=== PATIENT | female | born 1965 | race Caucasian/White ===

== ENCOUNTER 2018-09-18 21:53 | Emergency (ER) | payer BC, OTHER ==
[~2018-09-18] VITALS: Ht 154.9 cm; Wt 88.5 kg
--- NOTE | 2018-09-18 22:41 | ED Lower Extremity ---
General Chief Complaint: Lower Extremity Stated Complaint: RIGHT LEG PAIN Nursing Triage Note: area on right leg that is red, hardend, warm, and sore wants to make sure she doesn't have a blood clot Nursing Sepsis Screen: No Definite Risk History of Present Illness Date Seen by Provider: Sep 18, 2018 Time Seen by Provider: 22:25 This is a 53-year-old female with a history of factor V Leiden and DVT here with an area of induration and mild tenderness over the right medial calf. She has no fever or chills, no chest pain or shortness of breath. She does not have swelling in the leg. She takes Eliquis and his been compliant with his medication. Allergies and Home Medications Patient Home Medication List Home Medication List Reviewed: Yes Review of Systems Constitutional: no symptoms reported EENTM: no symptoms reported Respiratory: no symptoms reported Cardiovascular: no symptoms reported Gastrointestinal: no symptoms reported Genitourinary: no symptoms reported Musculoskeletal: see HPI Skin: no symptoms reported Psychiatric/Neurological: No Symptoms Reported Past Lonrchw-Eqgevt-Qadhne Hx Patient Social History Alcohol Use: Denies Use Recreational Drug Use: No Smoking Status: Former Smoker Type Used: Cigarettes Former Smoker, Quit: Jul 06, 1993 2nd Hand Smoke Exposure: No Recent Foreign Travel: No Contact w/Someone Who Travel: No Recent Infectious Disease Expo: No Recent Hopitalizations: No Physical Abuse: No Sexual Abuse: No Mistreated: No Fear: No Immunizations Up To Date Date of Influenza Vaccine: Apr 05, 2018 Seasonal Allergies Seasonal Allergies: No Past Medical History Surgeries: Yes (hemorrhoidecotomy) Appendectomy, Gallbladder, 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 Respiratory: Yes Asthma, Pulmonary Embolism Cardiac: Yes Deep Vein Thrombosis, Hypertension 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 oz. 88.056621lj; BMI Method:Stated General Appearance: no apparent distress HEENT: PERRL/EOMI Neck: supple Cardiovascular: normal peripheral pulses, regular rate, rhythm, no edema, other (there is an approximately 2-3 cm area of induration subcutaneous over the right medial calf, there is mild overlying hyperemia but no warmth, there is no edema in the leg) Respiratory: lungs clear Gastrointestinal: non tender, soft Neurologic/Psychiatric: no motor/sensory deficits; No abnormal gait Skin: warm/dry Progress/Results/Core Measures Results/Orders Vital Signs/I&O 09/18/18 22:05 Temp 97.5 Pulse 95 Resp 18 B/P (MAP) 136/96 (109) Pulse Ox 94 O2 Delivery Room Air Blood Pressure Mean: 109 Progress Progress Note : Progress Note Patient's presentation is not consistent with a DVT, it is not consistent with abscess or cellulitis, it does appear consistent with a small area of superficial thrombophlebitis. We do not have formal ultrasound available in this facility however I did offer patient CT of the lower extremity with contrast, I also offered transfer to [facility] in order to have a formal ultrasound, I also recommended the patient may go by private vehicle to [facility] for an ultrasound. Patient consented to me performing my own limited bedside ultrasound, we visualized the popliteal artery and vein and common femoral artery and vein using color mode, there was normal compressibility at both sites. This decreases my suspicion even further for DVT although again I was perfectly clear with patient and family that this is not an official study, that for complete certainty she would need additional testing. We did review return precautions at length, patient was to call 911 for the development of any chest pain or shortness of breath, and otherwise to return to the nearest emergency department for any worsening pain or swelling in the leg. She will use warm compresses on the localized palpable tender area on her leg and she will call her doctor on Thursday morning. Departure Impression Primary Impression: Superficial thrombophlebitis Disposition: HOME, SELF-CARE Condition: Stable Departure-Patient Inst. Referrals: NO,LOCAL PHYSICIAN (PCP) Primary Care Physician Patient Instructions: Superficial Phlebitis STEVE ROWLEY DO Sep 18, 2018 22:41
[2018-09-18 22:48] VITALS: BP 138/85
== END 2018-09-18 22:48 | disposition home or self-care (01) ==
LOC: EDUNIT# 21:53 → ER FS 21:59
DX: I80.01 Phlebitis and thrombophlebitis of superficial vessels of right lower extremity (principal); J45.909 Unspecified asthma, uncomplicated; F32.9 Major depressive disorder, single episode, unspecified; Z87.19 Personal history of other diseases of the digestive system; Z86.718 Personal history of other venous thrombosis and embolism; Z79.01 Long term (current) use of anticoagulants; Z87.891 Personal history of nicotine dependence; Z90.710 Acquired absence of both cervix and uterus; Z90.49 Acquired absence of other specified parts of digestive tract; Z90.89 Acquired absence of other organs; Z86.711 Personal history of pulmonary embolism
CPT/HCPCS: 99283

== ENCOUNTER 2018-12-30 22:41 | Emergency (ER) | payer BC ==
[~2018-12-30] VITALS: Ht 157.5 cm; Wt 81.6 kg
--- OUTSIDE RECORDS SUMMARY | 2018-12-30 22:45 | XMS REPORT | Continuity of Care Document ---
Author Organization Unknown Address Unknown Allergies Active Description Code Type Severity Reaction Onset Reported/Identified Relationship to Patient Clinical Status Yes ADHESIVE TAPE 19167 Chemical Low Rash~Other 12/12/2015 12/12/2015 Yes AZITHROMYCIN 7140 DRUG INGREDI N/A Itching 12/12/2015 12/12/2015 Yes HYDROCODONE 4452 DRUG INGREDI Low Rash 12/12/2015 12/12/2015 Yes LATEX 1429 DRUG INGREDI Low Rash 12/12/2015 12/12/2015 Yes MORPHINE 4906 DRUG INGREDI N/A Itching 12/12/2015 12/12/2015 Yes PENICILLINS 25 Drug Class High Anaphylaxis 12/12/2015 12/12/2015 Medications Medication Packaging Start Date Stop Date Route Dosage Sig ALUM T MAG HYDROXIDE-SIMETH 200-200-20 MG/5ML PO SUSP 12/13/2015 Oral 30 4 TIMES DAILY PRN OLANZAPINE 10 MG PO TBDP 12/13/2015 Oral 10 2 TIMES DAILY PRN ACETAMINOPHEN 325 MG PO TABS 12/13/2015 Oral 650 EVERY 6 HOURS PRN MAGNESIUM HYDROXIDE 400 MG/5ML PO SUSP 12/13/2015 Oral 30 DAILY PRN ALBUTEROL SULFATE (2.5 MG/3ML) 0.083% IN NEBU 12/13/2015 Inhalation 2.5 EVERY 6 HOURS PRN CYCLOBENZAPRINE HCL 10 MG PO TABS 12/13/2015 Oral 10 3 TIMES DAILY PRN ALBUTEROL SULFATE HFA 108 (90 BASE) MCG/ACT IN AERS 12/13/2015 Inhalation 2 EVERY 4 HOURS PRN QUETIAPINE FUMARATE 25 MG PO TABS 12/13/2015 Oral 25 4 TIMES DAILY PRN NYSTATIN 515732 UNIT/GM EX CREA 12/13/2015 Topical 2 TIMES DAILY PRN GABAPENTIN 300 MG PO CAPS 12/13/2015 Oral 600 3 TIMES DAILY TRAZODONE HCL 50 MG PO TABS 12/13/2015 Oral 50 BEDTIME WARFARIN SODIUM 5 MG PO TABS 12/13/2015 Oral 5 DAILY FLUOXETINE HCL 20 MG PO CAPS 12/13/2015 Oral 20 BEDTIME TRIAMTERENE-HCTZ 75-50 MG PO TABS 12/13/2015 Oral 1 DAILY POTASSIUM CHLORIDE ER 10 MEQ PO TBCR 12/13/2015 Oral 10 2 TIMES DAILY IPRATROPIUM-ALBUTEROL 0.5-2.5 (3) MG/3ML IN SOLN 12/13/2015 Nebulization 3 BEDTIME FLUTICASONE FUROATE-VILANTEROL 100-25 MCG/INH IN AEPB 12/13/2015 Inhalation 1 DAILY NYSTATIN 611951 UNIT/GM EX CREA 12/13/2015 Topical 2 TIMES DAILY METFORMIN HCL 850 MG PO TABS 12/13/2015 Oral 850 2 TIMES DAILY WITH MEALS BUSPIRONE HCL 10 MG PO TABS 12/13/2015 Oral 20 2 TIMES DAILY FAMOTIDINE 20 MG PO TABS 12/13/2015 Oral 20 2 TIMES DAILY LISINOPRIL 10 MG PO TABS 12/13/2015 Oral 10 DAILY LOVASTATIN 20 MG PO SPLIT TABLET 12/13/2015 Oral 20 DAILY WITH DINNER LURASIDONE HCL 20 MG PO SPLIT TABLET 12/13/2015 Oral 20 DAILY WITH DINNER ATORVASTATIN CALCIUM 10 MG PO TABS 12/13/2015 Oral 10 DAILY WITH DINNER SULFAMETHOXAZOLE-TRIMETHOPRIM 800-160 MG PO TABS 12/13/2015 12/18/2015 Oral 1 EVERY 12 HOURS SCHEDULED DEXTROSE 50 % IV SOLN 12/14/2015 Intravenous 50 PRN GLUCOSE 40 % PO GEL 12/14/2015 Oral 15 PRN GLUCAGON HCL (RDNA) 1 MG IJ SOLR 12/14/2015 Intramuscular 1 PRN INSULIN ASPART 100 UNIT/ML SC SOPN 12/14/2015 Subcutaneous 2 TIMES DAILY BEFORE MEALS Problems There is no data. Procedures There is no data. Results Test Result Range PROTIME-INR - 12/13/15 05:56 INR 1.77 INR PROTHROMBIN TIME 21.4 sec. 11.8-14.8 COMPREHENSIVE METABOLIC PANEL - 12/13/15 05:56 ALBUMIN 3.9 g/dL 3.4-4.8 ALKALINE PHOSPHATASE 71 U/L 29-122 ALT 35 U/L 10-46 AST 24 U/L 16-37 BILIRUBIN,TOTAL 0.4 mg/dL 0.2-1.3 BUN BLOOD 16 mg/dL 6-20 CALCIUM 9.2 mg/dL 8.7-10.5 CHLORIDE 99 mmol/L 99-111 CO2 33 mmol/L 20-36 CREATININE 0.56 mg/dL 0.40-1.10 EGFR > mL/min >59 GLUCOSE 104 mg/dL 74-106 POTASSIUM 3.6 mmol/L 3.6-4.9 PROTEIN TOTAL 6.6 g/dL 6.4-8.3 SODIUM 139 mmol/L 136-145 URINALYSIS, REFLEX CULTURE IF NEEDED - 12/13/15 17:55 APPEARANCE Clear [none] BILIRUBIN UA Negative Negative COLOR Light-Yellow [none] GLUCOSE UA Negative Negative HEMOGLOBIN UA Trace Negative LEUKOCYTE ESTERASE UA Negative Negative MUCOUS Rare FEW NITRATE UA Negative Negative PH UA 6.0 5.0-8.0 PROTEIN UA Negative Negative RBC UA 0-3 /HPF 0-3 SPECIFIC GRAVITY UA 1.012 1.003-1.030 SQUAMOUS EPITHELIAL 1+ 1+ UROBILINOGEN UA 0.2 mg/dL 0.2 WBC UA 0-3 /HPF 0-3 [id number] Negative Negative PROTIME-INR - 12/14/15 06:17 INR 1.34 INR PROTHROMBIN TIME 17.2 sec. 11.8-14.8 HEMOGLOBIN A1C - 12/14/15 06:17 HEMOGLOBIN A1C 5.8 % 4.0-6.0 SUREPATH PAP RFX HPV mRNA E6/E7 - 10/27/18 00:00 CLINICAL INFORMATION: NRG LMP: NRG PREV. PAP: NRG PREV. 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 Visit Date/Time Discharge Status Pt. Type Provider Facility Loc./Unit Complaint [id number] 12/06/2018 15:15:00 12/06/2018 23:59:59 CLS [facility] [id number] 12/06/2018 15:15:00 Document Registration [id number] 10/27/2018 10:45:00 Document Registration [id number] 12/12/2015 22:15:00 12/14/2015 17:51:00 DIS Inpatient [facility] [id number] 12/13/2015 00:41:09 Document Registration
[2018-12-30 23:14] LABS: BACTERIA,URINE MODERATE /HPF; BILIRUBIN,URINE NEGATIVE (NEGATIVE); CLARITY,URINE CLEAR; COLOR,URINE YELLOW; GLUCOSE, URINE (UA) NEGATIVE (NEGATIVE); KETONES,URINE NEGATIVE (NEGATIVE); LEUKOCYTE ESTERASE ,URINE 1+ (NEGATIVE); NITRITE,URINE NEGATIVE (NEGATIVE); PROTEIN,URINE NEGATIVE (NEGATIVE); UROBILINOGEN,URINE 0.2 MG/DL (NORMAL)
[2018-12-30] MEDS ORDERED: fentaNYL INJECTION 100 MCG/2 ML AMP IVP STA (23:46)
[2018-12-30] MEDS ORDERED: NS IV 1000 ML 1,000 ML IV STA (23:46)
[2018-12-30] MEDS ORDERED: ONDANSETRON 4 MG/2 ML (SDV) Z0FRAN IVP STA (23:46)
--- NOTE | 2018-12-30 23:50 | ED Abdominal Pain ---
General Chief Complaint: Abdominal/GI Problems Stated Complaint: ABD AND BACK PAIN Nursing Triage Note: Patient advises she is experiencing lower abdominal pain, mostly in her suprapubic area. She advises she had a hernia repair approximately 8 month ago and she has been experiencing pain since. She advises the pain has become more intense lately. Sepsis Screen: No Definite Risk Source of Information: Patient History of Present Illness Date Seen by Provider: Dec 30, 2018 Time Seen by Provider: 23:29 Initial Comments 53 yo F presenting with periumbilical abdominal pain and diffuse abdominal pain with nausea that has been getting worse since 1999 tonight. She has had similar issues off and on for the last 8 months or so. She is concerned that she might be having issues with her hernia mesh repair. she has had more severe pain tonight. She has nausea with this and feels like she could throw up but has not been able to. She denies having any diarrhea. She has had constipation with no bowel movement for 2-3 days but states that that is not unusual for her. She denies any pain with urination. She has no fever or chills. 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 Allergies and Home Medications Allergies Coded Allergies: hydrocodone (Verified Allergy, Unknown, 12/30/18) latex (Verified Allergy, Unknown, 12/30/18) Uncoded Allergies: PENICILLIN (Allergy, Unknown, 12/30/18) PLASTIC TAPE (Allergy, Unknown, 12/30/18) Patient Home Medication List Home Medication List Reviewed: Yes Review of Systems Review of Systems Constitutional: No chills, No fever; malaise EENTM: No Symptoms Reported Respiratory: No Symptoms Reported Cardiovascular: Denies Chest Pain, Denies Lightheadedness Gastrointestinal: See HPI, Abdominal Pain, Nausea; Denies Rectal Bleeding; Vomiting Genitourinary: Denies Burning, Denies Frequency Musculoskeletal: no symptoms reported Skin: no symptoms reported Psychiatric/Neurological: No Symptoms Reported Endocrine: No Symptoms Reported Hematologic/Lymphatic: No Symptoms Reported Past Uywuxzn-Otnrta-Rblvpx Hx Past Med/Social Hx: Reviewed Nursing Past Med/Soc Hx Patient Social History Alcohol Use: Denies Use Recreational Drug Use: No Smoking Status: Former Smoker Type Used: Cigarettes Former Smoker, Quit: Jul 06, 1993 2nd Hand Smoke Exposure: No Recent Foreign Travel: No Contact w/Someone Who Travel: No Recent Infectious Disease Expo: No Recent Hopitalizations: No Immunizations Up To Date Date of Influenza Vaccine: Apr 05, 2018 Seasonal Allergies Seasonal Allergies: No Past Medical History Surgeries: Yes (hemorrhoidecotomy) Appendectomy, Gallbladder, 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 Respiratory: Yes Asthma, Pulmonary Embolism Cardiac: Yes Deep Vein Thrombosis, Hypertension 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 oz. 81.195693mn; BMI Method:Estimated General Appearance: WD/WN, moderate distress (complains of abdominal pain), obese HEENT: PERRL/EOMI, pharynx normal Neck: non-tender, supple, normal inspection Respiratory: chest non-tender, lungs clear, normal breath sounds, no respiratory distress, no accessory muscle use Cardiovascular: normal peripheral pulses, regular rate, rhythm Gastrointestinal: soft, no pulsatile mass, tenderness (diffuse but worse in epigastric and along midline scar from prior ventral hernia repair. small umbilical hernia palpated and tender to palpation but not reducible when applying pressure to the hernia ) Rectal: deferred Extremities: normal range of motion, non-tender, normal inspection Back: no CVA tenderness Neurologic/Psychiatric: alert, normal mood/affect, oriented x 3 Skin: normal color, warm/dry Progress/Results/Core Measures Results/Orders Lab Results Laboratory Tests Test 12/30/18 22:55 12/31/18 00:16 Range/Units Urine Color YELLOW Urine Clarity CLEAR Urine pH 7.0 5-9 Urine Specific [place] 1.015 L 1.016-1.022 Urine Protein NEGATIVE NEGATIVE Urine Glucose (UA) NEGATIVE NEGATIVE Urine Ketones NEGATIVE NEGATIVE Urine Nitrite NEGATIVE NEGATIVE Urine Bilirubin NEGATIVE NEGATIVE Urine Urobilinogen 0.2 NORMAL MG/DL Urine Leukocyte Esterase 1+ H NEGATIVE Urine RBC (Auto) TRACE H NEGATIVE Urine RBC NONE /HPF Urine WBC 10-25 H /HPF Urine Squamous Epithelial Cells 10-25 H /HPF Urine Crystals NONE /LPF Urine Bacteria MODERATE H /HPF Urine Casts NONE /LPF Urine Mucus NEGATIVE /LPF Urine Culture Indicated YES White Blood Count 10.4 4.3-11.0 10^3/uL Red Blood Count 4.71 4.35-5.85 10^6/uL Hemoglobin 13.5 11.5-16.0 G/DL Hematocrit 43 35-52 % Mean Corpuscular Volume 90 80-99 FL Mean Corpuscular Hemoglobin 29 25-34 PG Mean Corpuscular Hemoglobin Concent 32 32-36 G/DL Red Cell Distribution Width 14.0 10.0-14.5 % Platelet Count 368 130-400 10^3/uL Mean Platelet Volume 9.7 7.4-10.4 FL Neutrophils (%) (Auto) 52 42-75 % Lymphocytes (%) (Auto) 36 12-44 % Monocytes (%) (Auto) 7 0-12 % Eosinophils (%) (Auto) 4 0-10 % Basophils (%) (Auto) 0 0-10 % Neutrophils # (Auto) 5.4 1.8-7.8 X 10^3 Lymphocytes # (Auto) 3.7 1.0-4.0 X 10^3 Monocytes # (Auto) 0.7 0.0-1.0 X 10^3 Eosinophils # (Auto) 0.5 H 0.0-0.3 10^3/uL Basophils # (Auto) 0.0 0.0-0.1 10^3/uL Sodium Level 138 135-145 MMOL/L Potassium Level 3.5 L 3.6-5.0 MMOL/L Chloride Level 97 L 98-107 MMOL/L Carbon Dioxide Level 28 21-32 MMOL/L Anion Gap 13 5-14 MMOL/L Blood Urea Nitrogen 18 7-18 MG/DL Creatinine 0.76 0.60-1.30 MG/DL Estimat Glomerular Filtration Rate > 60 BUN/Creatinine Ratio 24 Glucose Level 136 H 70-105 MG/DL Calcium Level 9.4 8.5-10.1 MG/DL Corrected Calcium 9.2 8.5-10.1 MG/DL Total Bilirubin 0.3 0.1-1.0 MG/DL Aspartate Amino Transf (AST/SGOT) 15 5-34 U/L Alanine Aminotransferase (ALT/SGPT) 16 0-55 U/L Alkaline Phosphatase 90 40-136 U/L Total Protein 7.6 6.4-8.2 GM/DL Albumin 4.3 3.2-4.5 GM/DL Lipase 39 8-78 U/L My Orders Orders - MAGALIE JOSÉ MD Ua Culture If Indicated (12/30/18 22:54) Urine Culture (12/30/18 22:55) Comprehensive Metabolic Panel (12/30/18 23:46) Lipase (12/30/18 23:46) Ed Iv/Invasive Line Start (12/30/18 23:46) Cbc With Automated Diff (12/30/18 23:46) Ct Abdomen/Pelvis W (12/30/18 23:46) Ns Iv 1000 Ml (Sodium Chloride 0.9%) (12/30/18 23:46) Ondansetron Injection (Zofran Injectio (12/30/18 23:46) Fentanyl Injection (Sublimaze Injection (12/30/18 23:46) Iohexol Injection (Omnipaque 350 Mg/Ml 1 (12/31/18 00:00) Received Contrast (Hold Metformin- Contr (12/31/18 00:00) Ns (Ivpb) (Sodium Chloride 0.9% Ivpb Bag (12/31/18 00:00) Fentanyl Injection (Sublimaze Injection (12/31/18 00:40) Metoclopramide Injection (Reglan Injecti (12/31/18 00:40) Fentanyl Injection (Sublimaze Injection (12/31/18 03:30) Ns Iv 1000 Ml (Sodium Chloride 0.9%) (12/31/18 03:30) Metoclopramide Injection (Reglan Injecti (12/31/18 04:01) Medications Given in ED Current Medications Medications Dose Ordered Sig/Ren Route Start Time Stop Time Status Last Admin Dose Admin Fentanyl Citrate 50 mcg ONCE ONCE IVP 12/31/18 03:30 12/31/18 03:31 DC 12/31/18 03:39 50 MCG Iohexol 100 ml ONCE ONCE IV 12/31/18 00:00 12/31/18 00:01 DC 12/31/18 01:18 100 ML Sodium Chloride 100 ml ONCE ONCE IV 12/31/18 00:00 12/31/18 00:02 DC 12/31/18 01:18 100 ML Vital Signs/I&O 6/27/19 23:00 Temp 98.3 Pulse 88 Resp 16 B/P (MAP) 118/86 (97) Pulse Ox 97 O2 Delivery Room Air Blood Pressure Mean: 97 Progress Progress Note #1: Progress Note check labs, urine and CT scan of abdomen/pelvis. Continue with IV fluids for hydration, fentanyl for pain, Zofran for nausea. With the CT scan will be evaluated for possible obstruction or recurrent hernia. Progress Note #2: Progress Note On recheck of the patient she states that the pain was slightly better after treatment with medicine. She was still having nausea and Zofran had not helped a lot. We will try repeating both pain and nausea medicine and see if that does any better. Still waiting on chemistry panel and creatinine before obtaining a CT scan with IV contrast. The CBC did not show any acute significant abnormality. Her urinalysis had a few white blood cells but patient denies any dysuria or frequency Progress Note #3: Progress Note On return from CT patient was continuing to have complaints of pain along the midline. Her nausea was doing a little bit better after getting a dose of Reglan. She still was exquisitely tender with palpation over the umbilical hernia area. Her chemistry panel had shown that her creatinine and liver enzymes were not showing any acute significant abnormality. Awaiting her CT to evaluate for any acute obstruction mass or pathology that might explain her symptoms. Progress Note #4: Progress Note The CT scan report shows no bowel obstruction or focal inflammatory process. She does have a small fat-containing umbilical hernia and ventral hernia. She does not have any stranding around this area. She was still very tender with palpation of the umbilical hernia and states that none of the medication that she been given was taking any significant change in her pain. We will try giving him an additional dose of medicine and check about admission of the patient for surgical evaluation. However [facility] was swollen did not have any beds available. Patient had requested to try and go to [facility] or [facility] to see about surgical evaluation. However [facility] had no surgeon passport application examiner for the weekend so [facility] was contacted. Dr. Hammond is on-call for [facility] and he did accept the patient in transfer. Diagnostic Imaging Diagonstic Imaging: CT Plain Films/CT/US/NM/MRI: abdomen, pelvis Comments Impression 1 no bowel instruction or focal intra-abdominal inflammatory process. 2 post cholecystectomy, appendectomy, hysterectomy. 3 small fat-containing umbilical region her ventral hernia. 4 L5 spondylolysis with spondylolisthesis. This was read by radiologist Ben maguire M.D. Study was read at 1:40 AM and transmitted at 1:48 AM Reviewed: Reviewed [place] Study Departure Impression Primary Impression: Umbilical hernia without obstruction or gangrene Additional Impressions: Recurrent ventral hernia Abdominal pain Qualified Codes: R10.33 - Periumbilical pain Nausea and vomiting in adult Disposition: 02 XFER SHT-TRM HOSP Condition: Stable Transfer Time Spoke to Accepting Phy: 03:44 Transfer Progress Notes D/w Dr. Hammond and he accepted pt for transfer and evaluation for her recurrent abdominal pain with umbilical hernia and recurrent ventral hernia since her pain was not controlled. Will evaluate her when she is at [facility] but anticipate surgery in the am for repair of recurrent ventral hernia. Transfer Facility: [facility] Method of Transfer: EMS Departure-Patient Inst. Referrals: DEVI HERRERA MD (PCP) Primary Care Physician MAGALIE JOSÉ MD Dec 30, 2018 23:50
[2018-12-31] MEDS ORDERED: NS 100 ML (IVPB) BAG IV ONE
[2018-12-31] MEDS ORDERED: IOHEXOL 350 MG/ML 100 ML (OMNIPAQUE 350) VIAL IV ONE
[2018-12-31] MEDS ORDERED: HOLD METFORMIN - RECEIVED CONTRAST 20 ML VIAL IV SCH
[2018-12-31] MEDS ORDERED: fentaNYL INJECTION 100 MCG/2 ML AMP IVP STA (00:40)
[2018-12-31] MEDS ORDERED: METOCLOPRAMIDE INJ 10 MG/2 ML (REGLAN) IVP STA ×2 (00:40→04:01)
[2018-12-31 00:41] LABS: BASOPHILS % (AUTO) 0 % (0-10); EOSINOPHILS % (AUTO) 4 % (0-10); HEMATOCRIT 43 % (35-52); HEMOGLOBIN 13.5 G/DL (11.5-16.0); LYMPHOCYTES % (AUTO) 36 % (12-44); MEAN CORPUSCULAR HEMOGLOBIN 29 PG (25-34); MEAN CORPUSCULAR HGB CONC 32 G/DL (32-36); MEAN CORPUSCULAR VOLUME 90 FL (80-99); MEAN PLATELET VOLUME 9.7 FL (7.4-10.4); MONOCYTES % (AUTO) 7 % (0-12); NEUTROPHILS # (AUTO) 5.4 X 10^3 (1.8-7.8); NEUTROPHILS % (AUTO) 52 % (42-75); PLATELET COUNT 368 10^3/uL (130-400); WHITE BLOOD COUNT 10.4 10^3/uL (4.3-11.0)
[2018-12-31 00:42] LABS: EOSINOPHILS # (AUTO) 0.5 10^3/uL (0.0-0.3); LYMPHOCYTES # (AUTO) 3.7 X 10^3 (1.0-4.0); MONOCYTES # (AUTO) 0.7 X 10^3 (0.0-1.0)
[2018-12-31 00:55] LABS: ALANINE AMINOTRANSFERASE 16 U/L (0-55); ALBUMIN 4.3 GM/DL (3.2-4.5); ALKALINE PHOSPHATASE 90 U/L (40-136); BILIRUBIN,TOTAL 0.3 MG/DL (0.1-1.0); BUN/CREATININE RATIO 24; CALCIUM 9.4 MG/DL (8.5-10.1); CARBON DIOXIDE 28 MMOL/L (21-32); CHLORIDE 97 MMOL/L (98-107); CREATININE SERUM 0.76 MG/DL (0.60-1.30); GFR ESTIMATED > 60; GLUCOSE 136 MG/DL (70-105); POTASSIUM 3.5 MMOL/L (3.6-5.0); SODIUM 138 MMOL/L (135-145); TOTAL PROTEIN 7.6 GM/DL (6.4-8.2)
[2018-12-31 01:10] LABS: LIPASE 39 U/L (8-78)
--- NOTE | 2018-12-31 01:51 | NUR ---
Patient is resting comfortably at this time. Advises nausea has improved and pain has improved slightly.
[2018-12-31] MEDS ORDERED: NS IV 1000 ML 1,000 ML IV SCH (03:30)
[2018-12-31] MEDS ORDERED: fentaNYL INJECTION 100 MCG/2 ML AMP IVP ONE (03:30)
--- NOTE | 2018-12-31 04:25 | NUR ---
Report given to Mallory RN at [facility], pt. will be going to room 101.
--- NOTE | 2018-12-31 04:30 | NUR ---
Spoke with shift captmaria del rosario Foster at [facility] and they have accepted the transfer.
--- NOTE | 2018-12-31 04:34 | NUR ---
Patient advises improvement in nausea and pain.
[2018-12-31 05:24] VITALS: BP 115/72
--- NOTE | 2018-12-31 05:31 | NUR ---
Patient departed the ER in the care of [facility].
--- NOTE | 2018-12-31 05:53 | Diagnostic Imaging Report ---
PROCEDURE: CT abdomen and pelvis with contrast. TECHNIQUE: Multiple contiguous axial images were obtained through the abdomen and pelvis after administration of intravenous contrast. Auto Exposure Controls were utilized during the CT exam to meet ALARA standards for radiation dose reduction. INDICATION: Suprapubic abdominal pain. FINDINGS: Lung bases are clear. There is fatty infiltration of liver. Gallbladder is surgically absent. Pancreas appears normal. Spleen is not enlarged. Kidneys and adrenals appear normal. Small bowel is not dilated. Colon appears normal. There is no evidence for appendicitis. Uterus is surgically absent. Urinary bladder is normal. There is no intraperitoneal free air or free fluid. There is a small umbilical hernia containing fat. IMPRESSION: No acute abnormality is seen in the abdomen or pelvis. I agree with preliminary interpretation. Dictated by: Dictated on workstation # [id number]
== END 2018-12-31 05:32 | disposition short-term general hospital (02) ==
LOC: EDUNIT# 22:41 → ER FS 22:42
DX: K42.9 Umbilical hernia without obstruction or gangrene (principal); K43.2 Incisional hernia without obstruction or gangrene; R11.2 Nausea with vomiting, unspecified; J45.909 Unspecified asthma, uncomplicated; I10 Essential (primary) hypertension; F32.9 Major depressive disorder, single episode, unspecified; Z86.718 Personal history of other venous thrombosis and embolism; Z86.711 Personal history of pulmonary embolism; Z98.890 Other specified postprocedural states; Z91.040 Latex allergy status; Z88.0 Allergy status to penicillin; Z88.5 Allergy status to narcotic agent; Z87.891 Personal history of nicotine dependence; Z90.49 Acquired absence of other specified parts of digestive tract; Z90.710 Acquired absence of both cervix and uterus
CPT/HCPCS: 36415; 74177; 80053; 81000; 83690; 85025; 87088; 96361; 96374; 96375; 96376

== ENCOUNTER 2019-12-05 13:04 | Inpatient (IN) | payer BC, OTHER ==
[~2019-12-05] VITALS: Ht 154.9 cm; Wt 89.6 kg
[2019-12-05] MEDS ORDERED: KETOROLAC 30 MG/ML VIAL IVP ONE (13:30)
[2019-12-05] MEDS ORDERED: NS IV 1000 ML 1,000 ML IV SCH ×2 (13:30→15:15)
[2019-12-05] MEDS ORDERED: ONDANSETRON 4 MG/2 ML (SDV) Z0FRAN IVP ONE ×2 (13:30→16:15)
--- NOTE | 2019-12-05 13:32 | ED Abdominal Pain ---
General Stated Complaint: BOWEL CONSTIPATION; VAGINAL BLEEDING Source of Information: Patient Exam Limitations: No Limitations History of Present Illness Date Seen by Provider: Dec 05, 2019 Time Seen by Provider: 13:22 Initial Comments The patient is a pleasant obese 54-year-old female who presents for evaluation of bilateral flank pain radiating to the abdomen as well as decreased urination and defecation over the last 3 days. She states that she has had a kidney stone the past that this feels similar. She reports a medical history including COPD, [id number] diabetes, frequent UTIs, and kidney stones. She states that currently she has the urge to urinate but is unable to do so. She had a urinary catheter once but this was after surgery and denies that she has ever needed one to urinate normally. She denies fevers or chills, chest pain or shortness of breath, rectal bleeding, dizziness or syncope. She has been having some nausea. She is alert and oriented 4, calm, and appears to be in no distress at this time. Timing/Duration: 2-3 Days Severity/Quality: Moderate Location: Flank (b/l), Generalized Abdomen Associated Symptoms: Back Pain, Nausea/Vomiting (nausea only) Allergies and Home Medications Allergies Coded Allergies: hydrocodone (Verified Allergy, Unknown, 12/30/18) latex (Verified Allergy, Unknown, 12/30/18) morphine (Verified Allergy, Unknown, 12/05/19) Uncoded Allergies: PENICILLIN (Allergy, Unknown, 12/30/18) PLASTIC TAPE (Allergy, Unknown, 12/30/18) Patient Home Medication List Home Medication List Reviewed: Yes Review of Systems Review of Systems Constitutional: no symptoms reported EENTM: No Symptoms Reported Respiratory: No Symptoms Reported Cardiovascular: No Symptoms Reported Gastrointestinal: Abdominal Pain, Constipated, Nausea; Denies Vomiting Genitourinary: Flank Pain, Urgency Musculoskeletal: no symptoms reported Skin: no symptoms reported Psychiatric/Neurological: No Symptoms Reported Endocrine: No Symptoms Reported Hematologic/Lymphatic: No Symptoms Reported All Other Systems Reviewed Negative Unless Noted: Yes Past Dvacaml-Dacnfr-Vghlap Hx Past Med/Social Hx: Reviewed Nursing Past Med/Soc Hx Patient Social History Type Used: Cigarettes Former Smoker, Quit: Jul 06, 1993 2nd Hand Smoke Exposure: No Recent Foreign Travel: No Contact w/Someone Who Travel: No Recent Hopitalizations: No Immunizations Up To Date Date of Influenza Vaccine: Apr 05, 2018 Seasonal Allergies Seasonal Allergies: No Past Medical History Surgeries: Yes (hemorrhoidecotomy) Appendectomy, Gallbladder, 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 Respiratory: Yes Asthma, Pulmonary Embolism Cardiac: Yes Deep Vein Thrombosis, Hypertension Neurological: No [employer] History: 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 Genitourinary: No Gastrointestinal: Yes Hemorrhoids Musculoskeletal: No Endocrine: No HEENT: No Cancer: No Psychosocial: Yes Depression Integumentary: No Blood Disorders: Yes (Factor 5) Physical Exam Vital Signs Vital Signs - First Documented 12/05/19 13:15 Temp 36.6 Pulse 99 Resp 18 B/P (MAP) 106/63 (77) Pulse Ox 93 O2 Delivery Room Air Capillary Refill : Height/Weight/BMI Height: 5'2.00" Weight: 180lbs. oz. 81.199271oh; BMI Method:Estimated General Appearance: WD/WN, no apparent distress, obese HEENT: PERRL/EOMI, pharynx normal Respiratory: lungs clear, normal breath sounds, no respiratory distress, no accessory muscle use Cardiovascular: regular rate, rhythm, no edema, no JVD Gastrointestinal: normal bowel sounds, soft, tenderness (generalized) Extremities: non-tender, normal inspection, no pedal edema Back: no vertebral tenderness, CVA tenderness (R), CVA tenderness (L) Neurologic/Psychiatric: no motor/sensory deficits, alert, normal mood/affect, oriented x 3 Skin: normal color, warm/dry Focused Exam Lactate Level 12/05/19 14:20: Lactic Acid Level 0.94 Lactic Acid Level Laboratory Tests Test 12/05/19 14:20 Lactic Acid Level 0.94 MMOL/L (0.50-2.00) Progress/Results/Core Measures Results/Orders Lab Results Laboratory Tests Test 12/05/19 13:30 12/05/19 14:10 12/05/19 14:20 Range/Units White Blood Count 20.6 H 4.3-11.0 10^3/uL Red Blood Count 4.92 4.35-5.85 10^6/uL Hemoglobin 14.1 11.5-16.0 G/DL Hematocrit 43 35-52 % Mean Corpuscular Volume 88 80-99 FL Mean Corpuscular Hemoglobin 29 25-34 PG Mean Corpuscular Hemoglobin Concent 33 32-36 G/DL Red Cell Distribution Width 14.1 10.0-14.5 % Platelet Count 451 H 130-400 10^3/uL Mean Platelet Volume 8.9 7.4-10.4 FL Neutrophils (%) (Auto) 80 H 42-75 % Lymphocytes (%) (Auto) 13 12-44 % Monocytes (%) (Auto) 7 0-12 % Eosinophils (%) (Auto) 0 0-10 % Basophils (%) (Auto) 0 0-10 % Neutrophils # (Auto) 16.4 H 1.8-7.8 X 10^3 Lymphocytes # (Auto) 2.6 1.0-4.0 X 10^3 Monocytes # (Auto) 1.3 H 0.0-1.0 X 10^3 Eosinophils # (Auto) 0.1 0.0-0.3 10^3/uL Basophils # (Auto) 0.1 0.0-0.1 10^3/uL Neutrophils % (Manual) 81 % Lymphocytes % (Manual) 10 % Monocytes % (Manual) 7 % Eosinophils % (Manual) 0 % Basophils % (Manual) 0 % Band Neutrophils 2 % Sodium Level 134 L 135-145 MMOL/L Potassium Level 4.2 3.6-5.0 MMOL/L Chloride Level 94 L 98-107 MMOL/L Carbon Dioxide Level 21 21-32 MMOL/L Anion Gap 19 H 5-14 MMOL/L Blood Urea Nitrogen 32 H 7-18 MG/DL Creatinine 2.48 H 0.60-1.30 MG/DL Estimat Glomerular Filtration Rate 20 BUN/Creatinine Ratio 13 Glucose Level 105 70-105 MG/DL Calcium Level 9.6 8.5-10.1 MG/DL Corrected Calcium 9.4 8.5-10.1 MG/DL Total Bilirubin 0.5 0.1-1.0 MG/DL Aspartate Amino Transf (AST/SGOT) 14 5-34 U/L Alanine Aminotransferase (ALT/SGPT) 14 0-55 U/L Alkaline Phosphatase 86 40-136 U/L Total Protein 7.8 6.4-8.2 GM/DL Albumin 4.3 3.2-4.5 GM/DL Amylase Level 97 25-125 U/L Lipase 38 8-78 U/L Urine Color YELLOW Urine Clarity CLOUDY Urine pH 5.0 5-9 Urine Specific [place] >=1.030 1.016-1.022 Urine Protein 2+ H NEGATIVE Urine Glucose (UA) NEGATIVE NEGATIVE Urine Ketones 2+ H NEGATIVE Urine Nitrite NEGATIVE NEGATIVE Urine Bilirubin 2+ H NEGATIVE Urine Urobilinogen 0.2 < = 1.0 MG/DL Urine Leukocyte Esterase 3+ H NEGATIVE Urine RBC (Auto) 3+ H NEGATIVE Urine RBC 10-25 H /HPF Urine WBC TNTC H /HPF Urine Squamous Epithelial Cells 0-2 /HPF Urine Crystals NONE /LPF Urine Bacteria MODERATE H /HPF Urine Casts NONE /LPF Urine Mucus NEGATIVE /LPF Urine Culture Indicated YES Lactic Acid Level 0.94 0.50-2.00 MMOL/L My Orders Orders - NESSA OVIEDO DO Comprehensive Metabolic Panel (12/05/19 13:22) Lipase (12/05/19 13:22) Amylase (12/05/19 13:22) Ua Culture If Indicated (12/05/19 13:22) Ed Iv/Invasive Line Start (12/05/19 13:22) Cbc With Automated Diff (12/05/19 13:22) Ketorolac Injection (Toradol Injection) (12/05/19 13:30) Ondansetron Injection (Zofran Injectio (12/05/19 13:30) Ns Iv 1000 Ml (Sodium Chloride 0.9%) (12/05/19 13:30) Manual Differential (12/05/19 13:30) Ct Abdomen/Pelvis Wo (12/05/19 13:22) Catheter(Urinary) Insert & Ass 03,15 (12/05/19 14:32) Lactic Acid Analyzer (12/05/19 14:36) Blood Culture (12/05/19 14:36) Urine Culture (12/05/19 14:10) Blood Culture (12/05/19 14:53) Ceftriaxone For Iv Use (Rocephin For I (12/05/19 15:15) Fentanyl Injection (Sublimaze Injection (12/05/19 15:15) Ns Iv 1000 Ml (Sodium Chloride 0.9%) (12/05/19 15:15) Medications Given in ED Current Medications Medications Dose Ordered Sig/Ren Route Start Time Stop Time Status Last Admin Dose Admin Ceftriaxone Sodium 1000 mg/ Sterile Water 10 ml @ 200 mls/hr ONCE ONCE IV 12/05/19 15:15 12/05/19 15:17 DC 12/05/19 15:41 200 MLS/HR Fentanyl Citrate 50 mcg ONCE ONCE IVP 12/05/19 15:15 12/05/19 15:16 DC 12/05/19 15:42 50 MCG Ketorolac Tromethamine 30 mg ONCE ONCE IVP 12/05/19 13:30 12/05/19 13:31 DC 12/05/19 13:33 30 MG Ondansetron HCl 4 mg ONCE ONCE IVP 12/05/19 13:30 12/05/19 13:31 DC 12/05/19 13:33 4 MG Vital Signs/I&O 12/05/19 13:15 Temp 36.6 Pulse 99 Resp 18 B/P (MAP) 106/63 (77) Pulse Ox 93 O2 Delivery Room Air Progress Progress Note : Progress Note @1545 - patient updated on lab and imaging results. Because of the acute kidney injury the patient will benefit from admission and IV hydration. She agrees with this plan. Dr. Desir page for the admission. Her nurse states that she will call back. @7408 - Dr. Desir accepts the med/surg admission at [facility]. Departure Communication (Admissions) Time/Spoke to Admitting Phy: 15:55 Dr. Desir accepts the admission at [facility] Impression Primary Impression: Acute kidney injury Additional Impression: Urinary tract infection Disposition: ADMITTED INPATIENT Condition: Stable Admissions Decision to Admit Reason: Admit from ER (General) Decision to Admit/Date: Dec 05, 2019 Time/Decision to Admit Time: 15:50 Departure-Patient Inst. Referrals: ADDY SMART APRN (PCP) Primary Care Physician [facility] (Family) Primary Care Physician NESSA OVIEDO DO Dec 05, 2019 13:32
[2019-12-05 13:47] LABS: HEMATOCRIT 43 % (35-52); HEMOGLOBIN 14.1 G/DL (11.5-16.0); MEAN CORPUSCULAR VOLUME 88 FL (80-99); WHITE BLOOD COUNT 20.6 10^3/uL (4.3-11.0)
[2019-12-05 13:48] LABS: BASOPHILS % (AUTO) 0 % (0-10); EOSINOPHILS % (AUTO) 0 % (0-10); LYMPHOCYTES % (AUTO) 13 % (12-44); MEAN CORPUSCULAR HEMOGLOBIN 29 PG (25-34); MEAN CORPUSCULAR HGB CONC 33 G/DL (32-36); MEAN PLATELET VOLUME 8.9 FL (7.4-10.4); MONOCYTES % (AUTO) 7 % (0-12); NEUTROPHILS % (AUTO) 80 % (42-75); PLATELET COUNT 451 10^3/uL (130-400); RED CELL DISTRIBUTION WIDTH 14.1 % (10.0-14.5)
[2019-12-05 13:49] LABS: NEUTROPHILS # (AUTO) 16.4 X 10^3 (1.8-7.8)
[2019-12-05 13:50] LABS: BASOPHILS # (AUTO) 0.1 10^3/uL (0.0-0.1); EOSINOPHILS # (AUTO) 0.1 10^3/uL (0.0-0.3); LYMPHOCYTES # (AUTO) 2.6 X 10^3 (1.0-4.0); MONOCYTES # (AUTO) 1.3 X 10^3 (0.0-1.0)
[2019-12-05] MEDS ORDERED: IOHEXOL 350 MG/ML 100 ML (OMNIPAQUE 350) VIAL IV ONE (14:00)
[2019-12-05] MEDS ORDERED: HOLD METFORMIN - RECEIVED CONTRAST 20 ML VIAL IV SCH (14:00)
[2019-12-05] MEDS ORDERED: NS 100 ML (IVPB) BAG IV ONE (14:00)
[2019-12-05] MEDS ORDERED: CATHETER FLUSH 10 ML SYR IV PRN (14:00)
[2019-12-05 14:02] LABS: BAND NEUTROPHILS 2 %; BASOPHILS % (MANUAL) 0 %; EOSINOPHILS % (MANUAL) 0 %; LYMPHOCYTES % (MANUAL) 10 %; MONOCYTES % (MANUAL) 7 %; NEUTROPHILS % (MANUAL) 81 %
[2019-12-05 14:10] LABS: POTASSIUM 4.2 MMOL/L (3.6-5.0)
[2019-12-05 14:11] LABS: ALBUMIN 4.3 GM/DL (3.2-4.5); BILIRUBIN,TOTAL 0.5 MG/DL (0.1-1.0); CALCIUM 9.6 MG/DL (8.5-10.1); CREATININE SERUM 2.48 MG/DL (0.60-1.30); TOTAL PROTEIN 7.8 GM/DL (6.4-8.2)
[2019-12-05 14:42] LABS: CLARITY,URINE CLOUDY; COLOR,URINE YELLOW
[2019-12-05 14:43] LABS: GLUCOSE, URINE (UA) NEGATIVE (NEGATIVE); KETONES,URINE 2+ (NEGATIVE); NITRITE,URINE NEGATIVE (NEGATIVE); PROTEIN,URINE 2+ (NEGATIVE)
[2019-12-05 14:44] LABS: BACTERIA,URINE MODERATE /HPF; BILIRUBIN,URINE 2+ (NEGATIVE); LEUKOCYTE ESTERASE ,URINE 3+ (NEGATIVE); WBC,URINE TNTC /HPF
[2019-12-05 14:45] LABS: SQUAMOUS EPITHELIAL CELL,UR 0-2 /HPF
--- NOTE | 2019-12-05 14:56 | Diagnostic Imaging Report ---
PROCEDURE: CT abdomen and pelvis without contrast. TECHNIQUE: Multiple contiguous axial images were obtained through the abdomen and pelvis without the use of intravenous contrast. Auto Exposure Controls were utilized during the CT exam to meet ALARA standards for radiation dose reduction. INDICATION: Bilateral flank pain. Dysuria. COMPARISON: 12/31/2018. FINDINGS: Included portions of the lung bases are clear. CT ABDOMEN: Bilateral L5 pars defects are noted. No acute bony abnormalities are seen. Normal appendix cannot be adequately identified, but there is no pericecal inflammation. Small bowel loops are nondistended. No renal or ureteral calculi are seen on either side. There is no hydroureteronephrosis or other evidence of obstruction. Kidneys have an otherwise unremarkable noncontrast CT appearance. The adrenal glands, spleen, pancreas, and liver have an unremarkable noncontrast CT appearance as well. There is no loculated fluid collection, free fluid, nor free air within the abdomen. No abnormal mesenteric or retroperitoneal adenopathy is seen. Osseous structures show no acute abnormalities. There is mild scattered calcified aortic atherosclerosis. Fat-containing umbilical hernia is also noted. CT PELVIS: Hypodense cystic-appearing structure is identified medial to the right iliac wing and anterior to the right psoas muscle just superior to the confluence of the iliac and psoas muscles. It measures 2.9 cm in diameter. This is increased in size compared to 2 cm previously. Ordonez catheter is present. Urinary bladder is decompressed. There is no loculated fluid collection, free fluid, nor free air within the pelvis. No abnormal adenopathy is identified. Osseous structures show no acute abnormalities. IMPRESSION: 1. No acute abnormalities are seen within the abdomen or pelvis. 2. Fat-containing periumbilical hernia. 3. Interval increase in size of probable right ovarian or paraovarian cyst. Further characterization with sonogram may be of benefit to ensure benignity, as some complex cystic features may be inconspicuous on CT. Dictated by: Dictated on workstation # [id number]
[2019-12-05] MEDS ORDERED: fentaNYL INJECTION 100 MCG/2 ML AMP IVP ONE (15:15)
[2019-12-05] MEDS ORDERED: cefTRIAXone FOR IV USE 1,000 MG in WATER (STERILE) FOR INJECTION 10 ML IV ONE (15:15)
--- OUTSIDE RECORDS SUMMARY | 2019-12-05 15:21 | XMS REPORT | Continuity of Care Document ---
Author Organization Unknown Address Unknown Phone Unavailable Allergies Active Description Code Type Severity Reaction Onset Reported/Identified Relationship to Patient Clinical Status Yes ADHESIVE TAPE MOD ERATE MODERATE Yes HYDROCODONE-ACETAMINOPHEN UNKNOWN UNKNOWN Yes LATEX UNKNOWN UNKNOWN Yes MORPHINE SEVERE SEVERE Yes PENICILLIN G POTASSIUM UNKNOWN UNKNOWN Yes ZITHROMAX Z-ROCHELLE S EVERE SEVERE Yes ADHESIVE TAPE 53053 Chemical Low Rash~Other 12/12/2015 12/12/2015 Yes AZITHROMYCIN 7140 DRUG INGREDI N/A Itching 12/12/2015 12/12/2015 Yes HYDROCODONE 4452 DRUG INGREDI Low Rash 12/12/2015 12/12/2015 Yes LATEX 1429 DRUG INGREDI Low Rash 12/12/2015 12/12/2015 Yes MORPHINE 4906 DRUG INGREDI N/A Itching 12/12/2015 12/12/2015 Yes PENICILLINS 25 Drug Class High Anaphylaxis 12/12/2015 12/12/2015 Yes hydrocodone [id number] Drug Aller gy Unknown N/A 12/30/2018 Yes latex [id number] Drug Allergy Unknown N/A 12/30/2018 Yes PENICILLIN PENICILLIN Unknown N/A 12/30/2018 Yes PLASTIC TAPE PLASTIC TAPE Unknown N/A 12/30/2018 Medications Medication Packaging Start Date St op Date Route Dosage Sig ALUM T MAG HYDROXIDE-SIMETH 200-200-20 MG/5ML PO SUSP 12/13/2015 Oral 30 4 TIMES DAILY PRN OLANZAPINE 10 MG PO TBDP 12/13/2015 Oral 10 2 TI MES DAILY PRN ACETAMINOPHEN 325 MG PO TABS 12/13/2015 Oral 650 EVERY 6 HOURS PRN MAGNESIUM HYDROXIDE 400 MG/5ML PO SUSP 12/13/2015 Oral 30 DAILY PRN ALBUTEROL SULFATE (2.5 MG/3ML) 0.083% IN N EBU 12/13/2015 Inhalation 2.5 EVERY 6 HOURS PRN CYCLOBENZAPRINE HCL 10 MG PO TABS 12/13/2015 Oral 10 3 TIMES DAILY PRN ALBUTEROL SULFATE HFA 108 (9 0 BASE) MCG/ACT IN AERS 12/13/2015 Inhalation 2 EVERY 4 HOURS PRN QUETIAPINE FUMARATE 25 MG PO TABS 12/13/2015 Oral 25 4 TIMES DAILY PRN NYSTATIN 627483 UNIT/GM EX CREA 12/13/2015 Topical 2 TIMES DAILY PRN GABAPENTIN 300 MG PO CAPS 12/13/2015 Oral 600 3 TI MES DAILY TRAZODONE HCL 50 MG PO TABS 12/13/2015 Oral 50 BEDTIME WARFARIN SODIUM 5 MG PO TABS 12/13/2015 Oral 5 DAILY FLUOXETINE HCL 20 MG PO CAPS 12/13/2015 Oral 20 BEDTIME TRIAMTERENE-HCTZ 75-50 MG PO TABS 12/13/2015 Oral 1 DAILY POTASSIUM CHLORIDE ER 10 MEQ PO TBCR 12/13/2015 Oral 10 2 TIMES DAILY IPRATROPIUM-ALBUTEROL 0.5-2. 5 (3) MG/3ML IN SOLN 12/13/2015 Nebulization 3 BEDTIME FLUTICASONE FUROATE-VILANTER OL 100-25 MCG/INH IN AEPB 12/13/2015 Inhalation 1 DAILY NYSTATIN [id number] UNIT/GM EX CREA 12/13/2015 Topical 2 TIMES DAILY METFORMIN HCL 850 MG PO TABS 12/13/2015 Oral 850 2 TIMES DAILY WITH MEALS BUSPIRONE HCL 10 MG PO TABS 12/13/2015 Oral 20 2 TIMES DAILY FAMOTIDINE 20 MG PO TABS 12/13/2015 Oral 20 2 TI MES DAILY LISINOPRIL 10 MG PO TABS 12/13/2015 Oral 10 SU Y LOVASTATIN 20 MG PO SPLIT TABLET 12/13/2015 Oral 20 DAILY WITH DINNER LURASIDONE HCL 20 MG PO SPLIT TABLET 12/13/2015 Oral 20 DAILY WITH DINNER ATORVASTATIN CALCIUM 10 MG PO TABS 12/13/2015 Oral 10 DAILY WITH DINNER SULFAMETHOXAZOLE-TRIMETHOPRI M 800-160 MG PO TABS 12/13/2015 12/18/2015 Oral 1 EVERY 12 HOURS SCHEDULED DEXTROSE 50 % IV SOLN 12/14/2015 Intravenous 50 PRN GLUCOSE 40 % PO GEL 12/14/2015 Oral 15 PRN GLUCAGON HCL (RDNA) 1 MG IJ SOLR 12/14/2015 Intramuscular 1 PRN INSULIN ASPART 100 UNIT/ML SC SOPN 12/14/2015 Subcutaneous 2 TIMES DAILY BEFORE MEALS FENTANYL INJ 100 MCG/2CC VIAL MCG 12/31/2018 01/03/2019 PRN Q2H ONDANSETRON VIAL INJ 4 MG/2CC (ZOFRAN 2CC VIAL) MG 12/31/2018 01/07/2019 PRN Q6H LACTATED RINGERS 1000CC IV BAG INJ ml 12/31/2018 01/07/2019 CONTINUOUSEVERY 0 Hour LISINOPRIL TAB 10 MG (ZESTRIL) MG 12/31/2018 01/29/2019 Daily&0900 MONTELUKAST TAB 5 MG (SINGULAIR) MG 12/31/2018 01/06/2019 Daily&0900 FENTANYL INJ 100 MCG/2CC VIAL MCG 12/31/2018 12/31/2018 ONCE&1154 ALBUTEROL INHALER MDI 8 GM (VENTOLIN HFA) Dose(s) 12/31/2018 01/10/2019 PRN QID TRAMADOL TAB 50 MG (ULTRAM) MG 12/31/2018 01/10/2019 PRN Q4H LACTATED RINGERS 1000CC IV BAG INJ ml 02/14/2019 02/21/2019 CONTINUOUSEVERY 0 Hour OXYCODONE 5MG/APAP 325MG TAB(PERCOCET-5) TAB 02/14/2019 02/21/2019 PRN Q4H CLINDAMYCIN 900MG/50CC BAG I NJ 900 MG/50CC (CLEOCIN 900MG/50CC PREMIX) MG 02/14/2019 02/14/2019 ONCE&111 5 FENTANYL INJ 100 MCG/2CC VIAL MCG 02/14/2019 02/14/2019 ONCE&1424 OXYCODONE/APAP 10MG/325MG TAB(PERCOCET-10) TAB 02/14/2019 02/14/2019 PRN ONCE ALBUTEROL SVN 2.5MG/3CC LIQ 2.5 MG (PROVENTIL KASHIF 2.5MG/3CC) MG 02/14/2019 02/24/2019 PRN QID Problems Date Dx Coded Attending Type Code Diagnosis Diagnosed By 09/18/2018 STEVE ROWLEY DO Ot F32. 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 01 PRISON (CURRENT) USE OF ANTICOAGULANT 09/18/2018 HALLEY COHN STEVE T Ot Z86.711 PERSONAL HISTORY OF PULMONARY EMBOLISM 09/18/2018 HALLEY COHN STEVE T Ot Z86.718 PERSONAL HISTORY OF OTHER VENOUS THROMBO 09/18/2018 HALLEY COHN STEVE T Ot Z87. 19 PERSONAL HISTORY OF OTHER DISEASES OF 09/18/2018 HALLEY COHN STEVE T Ot Z87.891 PERSONAL HISTORY OF NICOTINE DEPENDENCE 09/18/2018 HALLEY COHN STEVE T Ot Z90. 49 ACQUIRED ABSENCE OF OTHER SPECIFIED PART 09/18/2018 HALLEY COHN STEVE T Ot Z90.710 ACQUIRED ABSENCE OF BOTH CERVIX AND UTER 09/18/2018 HALLEY COHN STEVE T Ot Z90. 89 ACQUIRED ABSENCE OF OTHER ORGANS 09/20/2018 HALLEY COHN STEVE T Ot F32. 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 01 PRISON (CURRENT) USE OF ANTICOAGULANT 09/20/2018 HALLEY COHN STEVE T Ot Z86.711 PERSONAL HISTORY OF PULMONARY EMBOLISM 09/20/2018 HALLEY COHN STEVE T Ot Z86.718 PERSONAL HISTORY OF OTHER VENOUS THROMBO 09/20/2018 HALLEY COHN STEVE T Ot Z87. 19 PERSONAL HISTORY OF OTHER DISEASES OF 09/20/2018 HALLEY COHN STEVE T Ot Z87.891 PERSONAL HISTORY OF NICOTINE DEPENDENCE 09/20/2018 HALLEY COHN STEVE T Ot Z90. 49 ACQUIRED ABSENCE OF OTHER SPECIFIED PART 09/20/2018 HALLEY COHN STEVE T Ot Z90.710 ACQUIRED ABSENCE OF BOTH CERVIX AND UTER 09/20/2018 HALLEY COHN STEVE T Ot Z90. 89 ACQUIRED ABSENCE OF OTHER ORGANS 12/31/2018 ARNAV MEJIA, MAGALIE Enciso Ot F32.9 MAJOR DEPRESSIVE DISORDER, SINGLE EPISOD 12/31/2018 MAGALIE JOSÉ MD, Ot I10 ESSENTIAL (PRIMARY) HYPERTENSION 12/31/2018 MAGALIE JOSÉ MD, Ot J45.9 09 UNSPECIFIED ASTHMA, UNCOMPLICATED 12/31/2018 MAGALIE JOSÉ MD, Ot K42.9 UMBILICAL HERNIA WITHOUT OBSTRUCTION OR 12/31/2018 MAGALIE JOSÉ MD, Ot K43.2 INCISIONAL HERNIA WITHOUT OBSTRUCTION OR 12/31/2018 MAGALIE JOSÉ MD, Ot R10.3 3 PERIUMBILICAL PAIN 12/31/2018 MAGALIE JOSÉ MD, Ot R11.2 NAUSEA WITH VOMITING, UNSPECIFIED 12/31/2018 MAGALIE JOSÉ MD, Ot Z86.7 11 PERSONAL HISTORY OF PULMONARY EMBOLISM 12/31/2018 MAGALIE JOSÉ MD, Ot Z86.7 18 PERSONAL HISTORY OF OTHER VENOUS THROMBO 12/31/2018 MAGALIE JOSÉ MD, Ot Z87.8 91 PERSONAL HISTORY OF NICOTINE DEPENDENCE 12/31/2018 MAGALIE JOSÉ MD, Ot Z88.0 ALLERGY STATUS TO PENICILLIN 12/31/2018 MAGALIE JOSÉ MD, Ot Z88.5 ALLERGY STATUS TO NARCOTIC AGENT STATUS 12/31/2018 MAGALIE JOSÉ MD, Ot Z90.4 9 ACQUIRED ABSENCE OF OTHER SPECIFIED PART 12/31/2018 MAGALIE JOSÉ MD, Ot Z90.7 10 ACQUIRED ABSENCE OF BOTH CERVIX AND UTER 12/31/2018 MAGALIE JOSÉ MD, Ot Z91.0 40 LATEX ALLERGY STATUS 12/31/2018 MAGALIE JOSÉ MD, Ot Z98.8 90 OTHER SPECIFIED POSTPROCEDURAL STATES 12/31/2018 Prateek Hammond I10 ESSENTIAL (PRIMARY) HYPERTENSION 12/31/2018 Prateek Hammond K43.0 INCISIONAL HERNIA WITH OBSTRUCTION, WITHOUT GANGRENE 12/31/2018 Prateek Hammond K58.9 IRRITABLE BOWEL SYNDROME WITHOUT DIARRHEA 01/27/2019 ELADIO PERRY APRN 999 .39 INFECTION FOLLOWING OTHER INFUSION, INJECTION, TRANSFUSION, OR VACCINATION 01/27/2019 ELADIO PERRY APRN T81.41XA INFCT FOL A PROC, SUPERFIC INCISIONAL SURGICAL SITE, I NIT 02/14/2019 Prateek Hammond 552.21 INCISIONAL HERNIA WITH OBSTRUCTION 02/14/2019 Prateek Hammond 996.69 INFECTION AND INFLAMMATORY REACTION DUE TO OTHER INTERNAL PROSTHETIC DEVICE, IMPLANT, AND GRAFT 02/14/2019 Prateek Hammond I10 ESSENTIAL (PRIMARY) HYPERTENSION 02/14/2019 Prateek Hammond K43.0 INCISIONAL HERNIA WITH OBSTRUCTION, WITHOUT GANGRENE 02/14/2019 Prateek Hammond K43.2 INCISIONAL HERNIA WITHOUT OBSTRUCTION OR GANGRENE 02/14/2019 Prateek Hammond K58.9 IRRITABLE BOWEL SYNDROME WITHOUT DIARRHEA 02/14/2019 Prateek Hammond T81.41XA INFCT FOL A PROC, SUPERFIC INCISIONAL SURGICAL SITE, INIT 02/14/2019 Prateek Hammond T85.79XA INFECT/INFLM REACTION DUE TO OTH INT PROSTH DEV/GRFT, INIT Procedures There is no data. Results Test [...] 136-145 URINALYSIS, REFLEX CULTURE IF NEEDED - 0 12/13/15 17:55 APPEARANCE Clear [none] BILIRUBIN UA Negative Negative COLOR Light-Yellow [none] GLUCOSE UA Negative Negative HEMOGLOBIN UA Trace Negative LEUKOCYTE ESTERASE UA Negative Negative MUCOUS Rare FEW NITRATE UA Negative Negative PH UA 6.0 5.0-8.0 PROTEIN UA Negative Negative RBC UA 0-3 /HPF 0-3 SPECIFIC GRAVITY UA 1.012 1.003-1.03 0 SQUAMOUS EPITHELIAL 1+ 1+ UROBILINOGEN UA 0.2 mg/dL 0.2 WBC UA 0-3 /HPF 0-3 [id number] Negative Negative PROTIME-INR - 12/14/15 06:17 INR 1.34 INR PROTHROMBIN TIME 17.2 sec. 11.8-14.8 HEMOGLOBIN A1C - 12/14/15 06:17 HEMOGLOBIN A1C 5.8 % 4.0-6.0 SUREPATH PAP RFX HPV mRNA E6/E7 - 00:00 CLINICAL INFORMATION: NRG LMP: NRG PREV. PAP: NRG PREV. BX: NRG SOURCE: Cervix NRG STATEMENT OF ADEQUACY: NRG INTERPRETATION/RESULT: NRG TIN DIPPER: NRG COMMENT NRG A1C - 12/06/18 15:58 HEMOGLOBIN A1c 6.1 % of total Hgb <5.7 Complete urinalysis with reflex to cultu re - 12/30/18 22:55 Urine color determination YELLOW NRG Urine clarity determination CLEAR NR G Urine pH measurement by test strip 7.0 5-9 Specific gravity of urine by test strip 1.015 1.016-1.022 Urine protein assay by test strip, semi-quantitative NEGATIVE NEGATIVE Urine glucose detection by automated test strip NE GATIVE NEGATIVE Erythrocytes detection in urine sediment by light micr oscopy TRACE NEGATIVE Urine ketones detection by automated test strip NE GATIVE NEGATIVE Urine nitrite detection by test strip NEGATIVE NEGATIVE Urine total bilirubin detection by test strip NEGA TIVE NEGATIVE Urine urobilinogen measurement by automated test strip (mass/volume) 0.2 mg/dL NORMAL Urine leukocyte esterase detection by dipstick 1+ NEGATIVE Automated urine sediment erythrocyte cou nt by microscopy (number/high power field) NONE NRG Automated urine sediment leukocyte count by microscopy (number/high power field) [HPF] NRG Bacteria detection in urine sediment by light microsco py MODERATE NRG Squamous epithelial cells detection in u rine sediment by light microscopy 10-25 NRG Crystals detection in urine sediment by light microsco py NONE NRG Casts detection in urine sediment by light microscopy NONE NRG Mucus detection in urine sediment by light microscopy NEGATIVE NRG Complete urinalysis with reflex to culture YES NRG Bacterial urine culture - 12/30/18 22:55 Bacterial urine culture NG NRG Complete blood count (CBC) with automate d white blood cell (WBC) differential - 12/31/18 00:16 Blood leukocytes automated count (number/volume) 10.4 10*3/uL 4.3-11.0 Blood erythrocytes automated count (number/volume) 4.71 10*6/uL 4.35-5.85 Venous blood hemoglobin measurement (mass/volume) 13.5 g/dL 11.5-16.0 Blood hematocrit (volume fraction) 43 % 35-52 Automated erythrocyte mean corpuscular volume 90 [ foz_us] 80-99 Automated erythrocyte mean corpuscular h emoglobin (mass per erythrocyte) 29 pg 25-34 Automated erythrocyte mean corpuscular h emoglobin concentration measurement (mass/volume) 32 g/dL 32-36 Automated erythrocyte distribution width ratio 14. 0 % 10.0- 14.5 Automated blood platelet count (count/volume) 368 10*3/uL 130-400 Automated blood platelet mean volume measurement 9.7 [foz_us] 7.4-10.4 Automated blood neutrophils/100 leukocytes 52 % 42-75 Automated blood lymphocytes/100 leukocytes 36 % 12-44 Blood monocytes/100 leukocytes 7 % 0-12 Automated blood eosinophils/100 leukocytes 4 % 0-10 Automated blood basophils/100 leukocytes 0 % 0-10 Blood neutrophils automated count (number/volume) 5.4 10*3 1.8-7.8 Blood lymphocytes automated count (number/volume) 3.7 10*3 1.0-4.0 Blood monocytes automated count (number/volume) 0. 7 10*3 0.0-1.0 Automated eosinophil count 0.5 10*3/uL 0 .0-0.3 Automated blood basophil count (count/volume) 0.0 10*3/uL 0.0-0.1 Comprehensive metabolic panel - 12/31/18 00:16 Serum or plasma sodium measurement (moles/volume) 138 mmol/L 135-145 Serum or plasma potassium measurement (moles/volume) 3.5 mmol/L 3.6-5.0 Serum or plasma chloride measurement (moles/volume) 97 mmol/L 98-107 Carbon dioxide 28 mmol/L 21-32 Serum or plasma anion gap determination (moles/volume) 13 mmol/L 5-14 Serum or plasma urea nitrogen measurement (mass/volume ) 18 mg/dL 7-18 Serum or plasma creatinine measurement (mass/volume) 0.76 mg/dL 0.60-1.30 Serum or plasma urea nitrogen/creatinine mass ratio 24 NRG Serum or plasma creatinine measurement w ith calculation of estimated glomerular filtration rate > NRG Serum or plasma glucose measurement (mass/volume) 136 mg/dL 70-105 Serum or plasma calcium measurement (mass/volume) 9.4 mg/dL 8.5-10.1 Serum or plasma total bilirubin measurement (mass/volu me) 0.3 mg/dL 0.1-1.0 Serum or plasma alkaline phosphatase aury surement (enzymatic activity/volume) 90 U/L 40-136 Serum or plasma aspartate aminotransfera se measurement (enzymatic activity/volume) 15 U/L 5-34 Serum or plasma alanine aminotransferase measurement (enzymatic activity/volume) 16 U/L 0-55 Serum or plasma protein measurement (mass/volume) 7.6 g/dL 6.4-8.2 Serum or plasma albumin measurement (mass/volume) 4.3 g/dL 3.2-4.5 CALCIUM CORRECTED 9.2 mg/dL 8.5-10.1 Lipase - 12/31/18 00:16 Lipase 39 U/L 8-78 EKG - 12/31/18 07:32 EKG Complete MRSA Screen - 12/31/18 07:32 FINAL CULTURE RESULTS MRSA Negative Nasal Culture MEDIA PLATED Setup at 08:31 on 12/31/2018 Surgical Pathology - 12/31/18 12:13 Surg Path Sent to [facility] Pathology Comprehensive Metabolic Panel - 01/27/19 12:12 Albumin 4.0 g/dL 3.6-5.1 ALP 86 U/L 35-130 ALT 18 U/L 6-45 Anion Gap 14 6-14 AST 20 U/L 2-40 BUN 6 mg/dL 5-25 Calcium 9.4 mg/dL 8.3-10.4 Chloride 109 mmol/L 95-114 CO2 25 mEq/L 22-33 Creat 0.77 mg/dL 0.50-1.50 eGFR 78 mL/min/1.73m2 >59 Globulin 3.0 g/dL 2.3-3.5 Glucose 112 mg/dL 70-110 Osmo 296 280-295 Potassium 3.7 mmol/L 3.5-5.3 Sodium 144 mmol/L 134-148 TBil 0.4 mg/dL 0.2-1.2 TP 7.0 g/dL 6.0-8.3 Urinalysis - 01/27/19 13:48 Icotest N/A Negative Urine Volume Urine Volume Sufficient (10mL) Urine-Appearance Clear Clear Urine-Bacteria Negative Urine-Bilirubin Negative Negative Urine-Blood Negative Negative Urine-Color Yellow Colorless-Lt. [place] ow Urine-Epithelial Cells 0-5/HPF Urine-Glucose Negative Negative Urine-Ketones Negative Negative Urine-Leukocytes Negative Negative Urine-Nitrite Negative Negative Urine-Other Urine Saved if Culture Need ed (48hrs from time of collection) Urine-pH 8.5 5-8.5 Urine-Protein Negative Negative Urine-RBC Negative Urine-Specific [place] 1.015 1.000-1 .030 Urine-WBC Negative Urobilinogen 0.2 E.U./dL 0.2-1.0 Surgical Pathology - 02/14/19 13:12 Surg Path Sent to [facility] Pathology CMP - 03/17/19 09:20 GLUCOSE 99 mg/dL 65-99 UREA NITROGEN (BUN) 9 mg/dL 7-25 CREATININE 0.73 mg/dL 0.50-1.05 eGFR NON-AFR. CENTRAL AFRICAN 93 mL/min/1.73m2 > OR = 60 eGFR 108 mL/min/1.73m2 > OR = 60 BUN/CREATININE RATIO NOT APPLICABLE (calc) 6-22 SODIUM 142 mmol/L 135-146 POTASSIUM 3.7 mmol/L 3.5-5.3 CHLORIDE 106 mmol/L 98-110 CARBON DIOXIDE 26 mmol/L 20-32 CALCIUM 9.0 mg/dL 8.6-10.4 PROTEIN, TOTAL 6.9 g/dL 6.1-8.1 ALBUMIN 3.8 g/dL 3.6-5.1 GLOBULIN 3.1 g/dL (calc) 1.9-3.7 ALBUMIN/GLOBULIN RATIO 1.2 (calc) 1.0-2. 5 BILIRUBIN, TOTAL 0.4 mg/dL 0.2-1.2 ALKALINE PHOSPHATASE 74 U/L 33-130 AST 13 U/L 10-35 ALT 11 U/L 6-29 TSH - 03/17/19 09:20 TSH 2.00 mIU/L NRG A1C - 03/17/19 09:20 HEMOGLOBIN A1c 5.8 % of total Hgb <5.7 CULTURE, URINE - 07/27/19 08:18 CULTURE, URINE, ROUTINE SEE NOTE NRG CULTURE, URINE - 09/12/19 15:28 CULTURE, URINE, ROUTINE SEE NOTE NRG CULTURE, ANAEROBIC AND AEROBIC - 0 13:27 CULTURE, ANAEROBIC BACTERIA W/GRAM STAIN SEE NOTE NRG CULTURE, AEROBIC BACTERIA SEE NOTE NRG CBC - 10/07/19 15:33 WHITE BLOOD CELL COUNT 10.2 Thousand/uL 3.8-10.8 RED BLOOD CELL COUNT 4.62 Million/uL 3.8 0-5.10 HEMOGLOBIN 13.1 g/dL 11.7-15.5 HEMATOCRIT 39.1 % 35.0-45.0 MCV 84.6 fL 80.0-100.0 MCH 28.4 pg 27.0-33.0 MCHC 33.5 g/dL 32.0-36.0 RDW 14.3 % 11.0-15.0 PLATELET COUNT 249 Thousand/uL 140-400 MPV 9.5 fL 7.5-12.5 ABSOLUTE NEUTROPHILS 6181 cells/uL 1500- 7800 ABSOLUTE LYMPHOCYTES 2968 cells/uL 850-3 900 ABSOLUTE MONOCYTES 694 cells/uL 200-950 ABSOLUTE EOSINOPHILS 316 cells/uL 15-500 ABSOLUTE BASOPHILS 41 cells/uL 0-200 NEUTROPHILS 60.6 % NRG LYMPHOCYTES 29.1 % NRG MONOCYTES 6.8 % NRG EOSINOPHILS 3.1 % NRG BASOPHILS 0.4 % NRG CULTURE, URINE - 10/07/19 15:33 CULTURE, URINE, ROUTINE SEE NOTE NRG A1C - 10/07/19 15:33 HEMOGLOBIN A1c 5.6 % of total Hgb <5.7 CULTURE, URINE - 11/07/19 12:38 CULTURE, URINE, ROUTINE SEE NOTE NRG SUREPATH PAP RFX HPV mRNA E6/E7 - 10:14 CLINICAL INFORMATION: NRG LMP: NRG PREV. PAP: NRG PREV. BX: NRG SOURCE: Cervix NR STATEMENT OF ADEQUACY: NRG INTERPRETATION/RESULT: NR TIN DIPPER: NRG COMMENT NRG CMP - 11/15/19 11:43 GLUCOSE 83 mg/dL 65-99 UREA NITROGEN (BUN) 10 mg/dL 7-25 CREATININE 0.58 mg/dL 0.50-1.05 eGFR NON-AFR. CENTRAL AFRICAN 104 mL/min/1.73m2 > OR = 60 eGFR 120 mL/min/1.73m2 > OR = 60 BUN/CREATININE RATIO NOT APPLICABLE (calc) 6-22 SODIUM 139 mmol/L 135-146 POTASSIUM 4.7 mmol/L 3.5-5.3 CHLORIDE 101 mmol/L 98-110 CARBON DIOXIDE 29 mmol/L 20-32 CALCIUM 9.3 mg/dL 8.6-10.4 PROTEIN, TOTAL 7.0 g/dL 6.1-8.1 ALBUMIN 4.0 g/dL 3.6-5.1 GLOBULIN 3.0 g/dL (calc) 1.9-3.7 ALBUMIN/GLOBULIN RATIO 1.3 (calc) 1.0-2. 5 BILIRUBIN, TOTAL 0.5 mg/dL 0.2-1.2 ALKALINE PHOSPHATASE 87 U/L 37-153 AST 12 U/L 10-35 ALT 13 U/L 6-29 MAGNESIUM SERUM - 11/15/19 11:43 MAGNESIUM 1.9 mg/dL 1.5-2.5 Encounters ACCT No. Visit Date/Time Discharge Status Pt. Type Provider Facility Loc./Unit Complaint [id number] 09/21/2019 13:30:00 09/21/2019 23:59:5 9 [facility] Outpatient [facility] [id number] 11/15/2019 10:15:00 Document Registration [id number] 11/07/2019 12:30:00 Document Registration [id number] 10/07/2019 15:30:00 Document Registration [id number] 09/13/2019 13:45:00 Document Registration [id number] 09/12/2019 14:40:00 Document Registration [id number] 07/27/2019 08:00:00 Document Registration [id number] 03/17/2019 09:00:00 Document Registration [id number] 12/06/2018 15:15:00 Document Registration [id number] 10/27/2018 10:45:00 Document Registration [id number] 12/12/2015 22:15:00 6 17:51:00 DIS Inpatient JOSE MORLEY [facility] [id number] 12/13/2015 00:41:09 Document Registration [id number] 12/30/2018 22:42:00 05:32:00 DIS Emergency ARNAV MEJIA, MAGALIE [facility] ER FS ABD AND BACK PAIN [id number] 09/18/2018 21:59:00 22:48:00 DIS Emergency STEVE ROWLEY DO [facility] ER FS RIGHT LEG PAIN [id number] 12/05/2019 13:06:[address] Emergency PREET SZYMANSKI DO [facility] ER FS BOWEL CONSTIPATION; VAGINAL BLEEDING [id number] 02/14/2019 00:00:00 02/14/2019 15:06: 00 DIS Outpatient Prateek Hammond [id number] 02/08/2019 12:27:00 02/08/2019 23:59: 00 DIS Outpatient Prateek Hammond [id number] 01/27/2019 11:34:00 01/27/2019 15:00: 00 DIS Outpatient ELADIO PERRY APRN [id number] 12/31/2018 06:06:00 12/31/2018 16:30: 00 DIS Outpatient Prateek Hammond [facility] MED-SURG [id number] 12/31/2018 07:31:06 Document Registration
--- OUTSIDE RECORDS SUMMARY | 2019-12-05 15:21 | XMS REPORT ---
Author Author Indigo Samuels Organization [facility] Address [address] [place] [address] Care Team Providers Care Cable Coverer Name Role Phone DEVI Samuels Unavailable PROBLEMS Type Condition ICD9-CM Code YLS44-GE Code Onset Dates Condition S tatus SNOMED Code Problem HTN (hypertension), benign I10 Act marycruz 16277158 Problem Fibromyalgia M79.7 Active 3959867 05 Problem Moderate persistent asthma without complication J4 5.40 Active 047667805 Problem Hypercholesterolemia E78.00 Active 83890514 Problem Bipolar 1 disorder F31.9 Active 3 89068960 Problem COPD exacerbation J44.1 Active 19 5330791 Problem Irritable bowel syndrome with both constipation and diarrh ea K58.2 Active 29048135 Problem Obesity (BMI 30-39.9) E66.9 Active 315031525 Problem Reactive depression F32.9 Active 77499709 Problem Primary insomnia F51.01 Active 397 2004 ALLERGIES No Information ENCOUNTERS Encounter Location Date Diagnosis [address] [id number] [address] November, Fibromyalgia M79.7 and Muscl e cramps R25.[address] [id number] [address] November, Screening mammogram, encount er for Z12.[address] [id number], [place] [address] November, Well woman exam with routine gynecological exam Z01.419 and Muscle cramps R25.[address] 340 [id number], [place] [address] November, Dysuria R30.[address] [id number], [place] [address] November, Dysuria R30.0 and Acute cyst itis with hematuria N30.[address] 340 [id number], [place] [address] Oct, COPD exacerbation J44.[address] 340 [id number] [address] Oct, [address] 340 [id number], [place] [address] Oct, Fibromyalgia M79.[address] 340 [id number], [place] [address] Oct, [facility] [address] [facility] [id number] [place] [address] Oct, Hypercholesterolemia E78.00 [facility] [address] [facility] [id number] [place] [address] Oct, Dysuria R30.[address] 340 [id number], [place] [address] Oct, Dysuria R30.0 ; Screening fo r thyroid disorder Z13.29 ; Hyperglycemia R73.9 and Screening cholesterol level Z13.[address] 340 [id number], [place] [address] Oct, HTN (hypertension), benign I 10 ; Hyperglycemia R73.9 ; Dysuria R30.0 ; Screening cholesterol level Z13.220 and Screening for thyroid disorder Z13.[address] 340 [id number], [place] [address] Sep, [address] [id number], [place] [address] Sep, [address] [id number], [place] [address] Sep, 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 ; Segmental dysfunction of cervical region M99.01 ; Segmental dysfunction of thoracic region M99.02 and Segmental dysfunction of lumbar region M99.[address] [id number] [place] [address] 13 Sep, 2019 Postoperative follow-up Z09 [facility] [address] [id number] [place] [address] 10 Sep, 2019 Vaginal wall cyst N89.[address] 340[address] [id number], [place] [address] 09 Sep, 2019 Intractable migraine without aura and without status migrainosus G43.019 ; Dysuria R30.0 ; Swelling of labia N94.89 ; Labial cyst N90.7 ; Primary insomnia F51.01 ; Fibromyalgia M79.7 ; Other chronic pain G89.29 and Pain in thoracic spine M54.6 [facility] [address] [id number] [place] [address] 07 Sep, 2019 Non-intractable vomiting wit h nausea, unspecified vomiting type R11.[address] 340[address] [id number], [place] [address] [id number], [place] [address] Sep, [address] 340[address] [id number], [place] [address] Aug, [facility] [address] [facility] [id number] [place] [address] Aug, [address] [id number], [place] [address] Aug, COPD exacerbation J44.1 ; Ex posure to the flu Z20.828 and Acute cystitis without hematuria N30.00 [facility] [address] [id number], [place] [address] 04 Aug, [address] 340[address] [id number], [place] [address] Jul, [facility] [address] [facility] [id number] [place] [address] Jul, [address] [id number], [place] [address] Jul, Dysuria R30.[address] [id number], [place] [address] Jul, Dysuria R30.0 [facility] [address] [facility] [id number] [address] [place] [address] Jul, Hyperglycemia R73.9 [facility] [address] [facility] [id number] [address] [place] [address] Jul, [facility] [address] [facility] [id number] [address] [place] [address] Jul, Fibromyalgia M79.[address] [id number], [place] [address] Jun, Fibromyalgia M79.7 and Bipol ar 1 disorder F31.[address] [id number], [place] [address] Jun, [facility] [address] [id number] [place] [address] Jun, Acute non-recurrent maxillar y sinusitis J01.00 ; Moderate persistent asthma with exacerbation J45.41 and Cough R05 [facility] [address] 340[address] [id number], [place] [address] Jun, [address] [id number], [place] [address] Jun, [address] [id number], [place] [address] May, [address] [id number], [place] [address] May, Fibromyalgia M79.[address] 340[address] [id number], [place] [address] May, Chronic allergic otitis medi a of both ears H65.413 and Fibromyalgia M79.[address] [id number] [address] Apr, Reactive depression F32.9 an d Fibromyalgia M79.[address] [id number], [place] [address] Apr, [address] [id number], [place] [address] Apr, Non-intractable vomiting wit h nausea, unspecified vomiting type R11.2 ; Sore throat J02.9 and Upper respiratory tract infection, unspecified type J06.[address] [id number], [place] [address] Apr, [address] [id number], [place] [address] Apr, Bronchitis J40 ; Right flank pain R10.9 ; Sore throat J02.9 ; Fluid level behind tympanic membrane of both ears H65.93 and Hyperglycemia R73.[address] [id number], [place] [address] Mar, [place] [address] [id number] [address] Mar, [address] [id number], [place] [address] Mar, Reactive depression F32.9 ; Polyphagia R63.2 and Polydipsia R63.[address] [id number], [place] [address] Feb, Obesity (BMI 30-39.9) E66.9 [place] [address] [id number], [place] [address] Feb, [facility] [id number] [place] [address] Feb, Acute upper respiratory infe ction, unspecified J06.9 and Acute otitis media with effusion H65.199 [facility] [address] [id number] [place] [address] Jan, [facility] [address] [id number] [place] [address] Jan, [facility] [address] [id number] [place] [address] Jan, [facility] BE [address] [id number] [place] [address] Jan, [facility] [address] [id number] [address] Jan, Cellulitis of umbilicus L03. 316 [facility] [address] [id number] [place] [address] Dec, [facility] [address] [id number] [place] [address] Dec, [facility] BE [address] [id number] [place] [address] Dec, Moderate persistent asthma w ithout complication J45.40 ; Hyperglycemia R73.9 ; Candidal stomatitis B37.0 and Candidal esophagitis B37.81 [facility] [place] [address] [id number] [place] [address] November, [facility] BE [address] [id number] [place] [address] November, Fibromyalgia M79.7 [facility] [address] [id number] [place] [address] November, [facility] [address] [id number] [address] November, Non-recurrent acute suppurat marycruz otitis media of left ear without spontaneous rupture of tympanic membrane H66.002 ; Dysuria R30.0 and Bronchitis J40 [facility] [address] [id number] [place] [address] November, Nausea & vomiting R11.2 ; So re throat J02.9 ; Mild intermittent asthma with exacerbation J45.21 and Viral upper respiratory tract infection J06.[address] [id number] [place] [address] Oct, Irritable bowel syndrome wit h both constipation and diarrhea K58.2 and Fibromyalgia M79.[address] [id number] [place] [address] Oct, Well woman exam with routine gynecological exam Z01.[address] 340[address] [id number], [place] [address] Oct, Screening mammogram, encount er for Z12.31 [facility] [address] [id number] [place] [address] Oct, Sinusitis acute J01.[address] [id number] [address] Oct, Right leg pain M79.[address] 340[address] [id number], [place] [address] Oct, Right leg pain M79.[address] 340[address] [id number], [place] [address] Oct, Right leg pain M79.604 and H istory of DVT (deep vein thrombosis) Z86.718 [facility] IN [facility] [address] 340 [id number] [place] [address] Oct, Asthma exacerbation J45.901 ; Nausea & vomiting R11.2 and Diarrhea R19.7 [facility] [address] 340[address] [id number], [place] [address] Oct, [address] [id number] [place] [address] Oct, [address] [id number] [place] [address] Sep, [address] [id number] [place] [address] 14 Aug, 2018 HTN (hypertension), benign I 10 ; Fibromyalgia M79.7 ; Bipolar 1 disorder F31.9 ; Moderate persistent asthma without complication J45.40 ; Elevated glucose R73.09 ; Dysuria R30.0 and Yeast infection of the vagina B37.[address] 340 [id number] [place] [address] Aug, [address] [id number] [place] [address] 11 Aug, 2018 IMMUNIZATIONS No Known Immunizations SOCIAL HISTORY Never Assessed REASON FOR VISIT Sample request PLAN OF CARE VITAL SIGNS MEDICATIONS Medication Instructions Dosage Frequency Start Date End Date Duration S tatus Asmanex HFA 100 MCG/ACT Inhalation Twice a day 2 puffs 12h Oct, 019 Active Lyrica 75 MG Orally Once a day 2 capsule 24h Oct, 28 days Active RESULTS No Results PROCEDURES No Known procedures INSTRUCTIONS MEDICATIONS ADMINISTERED No Known Medications MEDICAL (GENERAL) HISTORY Type Description Date Medical History Hypertension Medical History Fibromyalgia Medical History Bipolar 1 disorder Medical History Asthma Medical History Mild intermittent asthma with exacerbati on Medical History Morbid (severe) obesity due to excess ca lories Medical History Morbid (severe) obesity due to excess ca lories Medical History Moderate persistent asthma with exacerba tion Medical History COPD exacerbation Medical History Swelling of labia Medical History Intractable migraine without aura and without status migrainosus Medical History Other chronic pain Surgical History umbilical hernia repair 2018 Surgical History colonoscopy Surgical History hysterectomy Surgical History appendectomy Surgical History colectomy Surgical History hernia repair 02/14/19 Hospitalization History Surgery(s) only Hospitalization History childbirth only
--- NOTE | 2019-12-05 17:45 | NUR ---
NICKIE CHUA admitted to room 411-1, with an admitting diagnosis of UTI AND KIDNEY INJURY, on 12/05/19 from ED via EMS, accompanied by EMS. NICKIE CHUA introduced to surroundings, call light, bed controls, phone, TV, temperature control, lights, meal times, smoking policy, visitor policy, side rail policy, bathrooms and showers. Patient Rights given to patient in the handbook. NICKIE CHUA verbalizes understanding that [facility] is not responsible for the loss or damage to any personal effects or valuables that are kept in the patients posession during their hospitalization. The following Patient Care Plans were discussed with the PT: Discharge Planning, UTI, AND PAIN. NICKIE CHUA verbalizes understanding of Interdisciplinary Patient Education. Patient and/or family were informed about the Rapid Response Team and its purpose.
[2019-12-05] MEDS ORDERED: LOPERAMIDE 2 MG (IMODIUM) TABLET PO PRN (18:00)
[2019-12-05] MEDS ORDERED: ONDANSETRON 4 MG (ZOFRAN) ORAL DISSOLVE TAB PO PRN (18:00)
[2019-12-05] MEDS ORDERED: diphenhydrAMINE 25 MG TAB (BENADRYL) PO PRN (18:00)
[2019-12-05] MEDS ORDERED: BISACODYL 10 MG SUPP (DULCOLAX) PR PRN (18:00)
[2019-12-05] MEDS ORDERED: MELATONIN 3 MG TABLET PO PRN (18:00)
[2019-12-05] MEDS ORDERED: ALPRAZolam 0.25 MG (XANAX) TAB PO PRN (18:00)
[2019-12-05] MEDS ORDERED: DOCUSATE SODIUM 100 MG (COLACE) CAP PO PRN (18:00)
[2019-12-05] MEDS ORDERED: CALCIUM CARBONATE 500 MG (TUMS) TAB.CHEW PO PRN (18:00)
[2019-12-05] MEDS ORDERED: ONDANSETRON 4 MG/2 ML (SDV) Z0FRAN IVP PRN (18:00)
[2019-12-05 18:01] VITALS: BP 88/61
[2019-12-05] MEDS ORDERED: RT-ALBUTEROL/IPRATROPIUM 3 ML (DUONEB) VIAL INH PRN (18:45)
[2019-12-05] MEDS: NS IV 1000 ML 1,000 ML IV SCH (18:50)
[2019-12-05 19:59] VITALS: BP 97/61
[2019-12-05] MEDS: fentaNYL INJECTION 100 MCG/2 ML AMP IVP PRN (20:00)
[2019-12-05] MEDS: SENNA W/DOCUSATE (SENOKOT S) TABLET PO SCH (21:06)
[2019-12-05] MEDS: RT-ALBUTEROL/IPRATROPIUM 3 ML (DUONEB) VIAL INH SCH (21:15)
--- OUTSIDE RECORDS SUMMARY | 2019-12-05 21:16 | XMS REPORT | Continuity of Care Document ---
Author Organization Unknown Address Unknown Phone Unavailable Allergies Active Description Code Type Severity Reaction Onset Reported/Identified Relationship to Patient Clinical Status Yes ADHESIVE TAPE MOD ERATE MODERATE Yes HYDROCODONE-ACETAMINOPHEN UNKNOWN UNKNOWN Yes LATEX UNKNOWN UNKNOWN Yes MORPHINE SEVERE SEVERE Yes PENICILLIN G POTASSIUM UNKNOWN UNKNOWN Yes ZITHROMAX Z-ROCHELLE S EVERE SEVERE Yes ADHESIVE TAPE 24142 Chemical Low Rash~Other 12/12/2015 12/12/2015 Yes AZITHROMYCIN 7140 DRUG INGREDI N/A Itching 12/12/2015 12/12/2015 Yes HYDROCODONE 4452 DRUG INGREDI Low Rash 12/12/2015 12/12/2015 Yes LATEX 1429 DRUG INGREDI Low Rash 12/12/2015 12/12/2015 Yes MORPHINE 4906 DRUG INGREDI N/A Itching 12/12/2015 12/12/2015 Yes PENICILLINS 25 Drug Class High Anaphylaxis 12/12/2015 12/12/2015 Yes PENICILLIN PENICILLIN Unknown N/A 12/30/2018 Yes PLASTIC TAPE PLASTIC TAPE Unknown N/A 12/30/2018 Yes PENICILLIN PENICILLIN Moderate N/A 12/05/2019 Yes PLASTIC TAPE PLASTIC TAPE Mild N/A 12/05/2019 Yes hydrocodone [id number] Drug Aller gy Unknown N/A 12/05/2019 Yes latex [id number] Drug Allergy Unknown N/A 12/05/2019 Yes morphine [id number] Drug Allergy Unknown N/A 12/05/2019 Medications Medication Packaging Start Date St op [...] Oral 25 4 TIMES DAILY PRN NYSTATIN 328648 UNIT/GM EX CREA 12/13/2015 Topical 2 TIMES [...] IN AEPB 12/13/2015 Inhalation 1 DAILY NYSTATIN 318475 UNIT/GM EX CREA 12/13/2015 Topical 2 TIMES [...] PHLEBITIS AND THOMBOPHLB OF SUPERFIC VES 09/18/2018 HALLEY COHN STEVE T Ot J45.909 UNSPECIFIED ASTHMA, UNCOMPLICATED 09/18/2018 HALLEY COHN STEVE T Ot M79.604 PAIN IN RIGHT LEG 09/18/2018 HALLEY COHN STEVE T Ot Z79. 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 89 ACQUIRED ABSENCE OF OTHER ORGANS 12/31/2018 MAGALIE JOSÉ MD, Ot F32.9 MAJOR DEPRESSIVE DISORDER, SINGLE EPISOD [...] OTHER SPECIFIED POSTPROCEDURAL STATES 12/31/2018 Prateek Hammond W I10 ESSENTIAL (PRIMARY) HYPERTENSION 12/31/2018 Prateek Hammond W K43.0 INCISIONAL HERNIA WITH OBSTRUCTION, WITHOUT GANGRENE 12/31/2018 Prateek Hammond K58.9 IRRITABLE BOWEL SYNDROME WITHOUT DIARRHEA 01/27/2019 ELADIO PERRY APRN 999 .39 INFECTION FOLLOWING OTHER INFUSION, INJECTION, TRANSFUSION, OR VACCINATION 01/27/2019 ELADIO PERRY APRN T81.41XA INFCT FOL A PROC, SUPERFIC INCISIONAL SURGICAL SITE, I NIT 02/14/2019 ManishLetaenrike W 552.21 INCISIONAL HERNIA WITH OBSTRUCTION 02/14/2019 Iam Hammondelinorenrike W 996.69 INFECTION AND INFLAMMATORY REACTION DUE TO OTHER INTERNAL PROSTHETIC DEVICE, IMPLANT, AND GRAFT 02/14/2019 Iam Hammondelinorenrike Conklin I10 ESSENTIAL (PRIMARY) HYPERTENSION 02/14/2019 Prateek Hammond K43.0 INCISIONAL HERNIA WITH OBSTRUCTION, WITHOUT GANGRENE 02/14/2019 Prateek Hammond W K43.2 INCISIONAL HERNIA WITHOUT OBSTRUCTION OR GANGRENE 02/14/2019 Iam Hammondelinorenrike Conklin K58.9 IRRITABLE BOWEL SYNDROME WITHOUT DIARRHEA 02/14/2019 Prateek Hammond T81.41XA INFCT FOL A PROC, SUPERFIC INCISIONAL SURGICAL SITE, INIT 02/14/2019 ManishLetaenrike Conklin T85.79XA INFECT/INFLM REACTION DUE TO OTH INT [...] mg/dL 0.2 WBC UA 0-3 /HPF 0-3 [id number] Negative Negative PROTIME-INR - 12/14/15 06:17 INR 1.34 INR PROTHROMBIN TIME 17.2 sec. 11.8-14.8 HEMOGLOBIN A1C - 12/14/15 06:17 HEMOGLOBIN A1C 5.8 % 4.0-6.0 SUREPATH PAP RFX HPV mRNA E6/E7 - 00:00 CLINICAL INFORMATION: NRG LMP: NRG PREV. PAP: NRG PREV. BX: NRG SOURCE: Cervix NRG STATEMENT OF ADEQUACY: NRG INTERPRETATION/RESULT: NRG JUNIOR ACCOUNTING CLERK: NRG COMMENT NRG A1C - 12/06/18 15:58 [...] culture YES NRG Bacterial urine culture - 06/27/19 22:55 Bacterial urine culture NG NRG Complete [...] - 12/31/18 12:13 Surg Path Sent to [facility] Pathology Comprehensive Metabolic Panel - 01/27/19 12:12 [...] Negative Urine-Blood Negative Negative Urine-Color Yellow Colorless-Lt. [place] ow Urine-Epithelial Cells 0-5/HPF Urine-Glucose Negative Negative Urine-Ketones Negative Negative Urine-Leukocytes Negative Negative Urine-Nitrite Negative Negative Urine-Other Urine Saved if Culture Need ed (48hrs from time of collection) Urine-pH 8.5 5-8.5 Urine-Protein Negative Negative Urine-RBC Negative Urine-Specific Walling 1.015 1.000-1 .030 Urine-WBC Negative Urobilinogen 0.2 E.U./dL 0.2-1.0 Surgical Pathology - 02/14/19 13:12 Surg Path Sent to [facility] Pathology CMP - 03/17/19 09:20 GLUCOSE 99 mg/dL 65-99 UREA NITROGEN (BUN) 9 mg/dL 7-25 CREATININE 0.73 mg/dL 0.50-1.05 eGFR NON-AFR. MALAGASY 93 mL/min/1.73m2 > OR = 60 eGFR [...] NRG STATEMENT OF ADEQUACY: NRG INTERPRETATION/RESULT: NRG JUNIOR ACCOUNTING CLERK: NRG COMMENT NRG CMP - 11/15/19 11:43 GLUCOSE 83 mg/dL 65-99 UREA NITROGEN (BUN) 10 mg/dL 7-25 CREATININE 0.58 mg/dL 0.50-1.05 eGFR NON-AFR. MALAGASY 104 mL/min/1.73m2 > OR = 60 eGFR [...] - 11/15/19 11:43 MAGNESIUM 1.9 mg/dL 1.5-2.5 Complete blood count (CBC) with automate d white blood cell (WBC) differential - 12/05/19 13:30 Blood leukocytes automated count (number/volume) 20.6 10*3/uL 4.3-11.0 Blood erythrocytes automated count (number/volume) 4.92 10*6/uL 4.35-5.85 Venous blood hemoglobin measurement (mass/volume) 14.1 g/dL 11.5-16.0 Blood hematocrit (volume fraction) 43 % 35-52 Automated erythrocyte mean corpuscular volume 88 [ foz_us] 80-99 Automated erythrocyte mean corpuscular h emoglobin (mass per erythrocyte) 29 pg 25-34 Automated erythrocyte mean corpuscular h emoglobin concentration measurement (mass/volume) 33 g/dL 32-36 Automated erythrocyte distribution width ratio 14. 1 % 10.0- 14.5 Automated blood platelet count (count/volume) 451 10*3/uL 130-400 Automated blood platelet mean volume measurement 8.9 [foz_us] 7.4-10.4 Automated blood neutrophils/100 leukocytes 80 % 42-75 Automated blood lymphocytes/100 leukocytes 13 % 12-44 Blood monocytes/100 leukocytes 7 % 0-12 Automated blood eosinophils/100 leukocytes 0 % 0-10 Automated blood basophils/100 leukocytes 0 % 0-10 Blood neutrophils automated count (number/volume) 16.4 10*3 1.8-7.8 Blood lymphocytes automated count (number/volume) 2.6 10*3 1.0-4.0 Blood monocytes automated count (number/volume) 1. 3 10*3 0.0-1.0 Automated eosinophil count 0.1 10*3/uL 0 .0-0.3 Automated blood basophil count (count/volume) 0.1 10*3/uL 0.0-0.1 Manual absolute plasma cell count - 07/25 13:30 Blood monocytes/100 leukocytes 7 % NRG Manual blood segmented neutrophils/100 leukocytes 81 % NRG Blood band neutrophils/100 leukocytes 2 % NRG Manual blood lymphocytes/100 leukocytes 10 % NRG Manual eosinophils/100 leukocytes in nose 0 % NRG Manual blood basophils/100 leukocytes 0 % NRG Comprehensive metabolic panel - 12/05/19 13:30 Serum or plasma sodium measurement (moles/volume) 134 mmol/L 135-145 Serum or plasma potassium measurement (moles/volume) 4.2 mmol/L 3.6-5.0 Serum or plasma chloride measurement (moles/volume) 94 mmol/L 98-107 Carbon dioxide 21 mmol/L 21-32 Serum or plasma anion gap determination (moles/volume) 19 mmol/L 5-14 Serum or plasma urea nitrogen measurement (mass/volume ) 32 mg/dL 7-18 Serum or plasma creatinine measurement (mass/volume) 2.48 mg/dL 0.60-1.30 Serum or plasma urea nitrogen/creatinine mass ratio 13 NRG Serum or plasma creatinine measurement w ith calculation of estimated glomerular filtration rate 20 NRG Serum or plasma glucose measurement (mass/volume) 105 mg/dL 70-105 Serum or plasma calcium measurement (mass/volume) 9.6 mg/dL 8.5-10.1 Serum or plasma total bilirubin measurement (mass/volu me) 0.5 mg/dL 0.1-1.0 Serum or plasma alkaline phosphatase aury surement (enzymatic activity/volume) 86 U/L 40-136 Serum or plasma aspartate aminotransfera se measurement (enzymatic activity/volume) 14 U/L 5-34 Serum or plasma alanine aminotransferase measurement (enzymatic activity/volume) 14 U/L 0-55 Serum or plasma protein measurement (mass/volume) 7.8 g/dL 6.4-8.2 Serum or plasma albumin measurement (mass/volume) 4.3 g/dL 3.2-4.5 CALCIUM CORRECTED 9.4 mg/dL 8.5-10.1 Serum or plasma amylase measurement (enz ymatic activity/volume) - 12/05/19 13:30 Serum or plasma amylase measurement (enzymatic activit y/volume) 97 U/L 25-125 Lipase - 12/05/19 13:30 Lipase 38 U/L 8-78 Complete urinalysis with reflex to cultu re - 12/05/19 14:10 Urine color determination YELLOW NRG Urine clarity determination CLOUDY NR G Urine pH measurement by test strip 5.0 5-9 Specific gravity of urine by test strip >= 1.016-1.022 Urine protein assay by test strip, semi-quantitative 2+ NEGATIVE Urine glucose detection by automated test strip NE GATIVE NEGATIVE Erythrocytes detection in urine sediment by light micr oscopy 3+ NEGATIVE Urine ketones detection by automated test strip 2+ NEGATIVE Urine nitrite detection by test strip NEGATIVE NEGATIVE Urine total bilirubin detection by test strip 2+ NEGATIVE Urine urobilinogen measurement by automated test strip (mass/volume) 0.2 mg/dL < = 1.0 Urine leukocyte esterase detection by dipstick 3+ NEGATIVE Automated urine sediment erythrocyte cou nt by microscopy (number/high power field) [HPF] NRG Automated urine sediment leukocyte count by microscopy (number/high power field) TNTC NRG Bacteria detection in urine sediment by light microsco py MODERATE NRG Squamous epithelial cells detection in u rine sediment by light microscopy 0-2 NRG Crystals detection in urine sediment by light microsco py NONE NRG Casts detection in urine sediment by light microscopy NONE NRG Mucus detection in urine sediment by light microscopy NEGATIVE NRG Complete urinalysis with reflex to culture YES NRG Blood lactic acid measurement (moles/vol ume) - 12/05/19 14:20 Blood lactic acid measurement (moles/volume) 0.94 mmol/L 0.50-2.00 Encounters ACCT No. Visit Date/Time Discharge Status Pt. Type Provider Facility Loc./Unit Complaint [id number] 09/21/2019 13:30:00 09/21/2019 23:59:[address] [facility] Outpatient [facility] [id number] 11/15/2019 10:15:00 Document Registration [id number] 11/07/2019 12:30:00 Document Registration [id number] 10/07/2019 15:30:00 Document Registration [id number] 09/13/2019 13:45:00 Document Registration [id number] 09/12/2019 14:40:00 Document Registration [id number] 07/27/2019 08:00:00 Document Registration [id number] 03/17/2019 09:00:00 Document Registration [id number] 12/06/2018 15:15:00 Document Registration [id number] 10/27/2018 10:45:00 Document Registration [id number] 12/12/2015 22:15:00 6 17:51:00 DIS Inpatient MORLEYJOSE [facility] [id number] 12/13/2015 00:41:09 Document Registration [id number] 12/30/2018 22:42:00 05:32:00 DIS Emergency MAGALIE JOSÉ MD Via [facility] ER FS ABD AND BACK PAIN [id number] 09/18/2018 21:59:00 22:48:00 DIS Emergency STEVE ROWLEY DO [facility] ER FS RIGHT LEG PAIN [id number] 12/05/2019 15:55:[address] Inpatient DARION VERAS DO [facility] 4TH ACUTE KIDNEY INJ[place] [id number] 02/14/2019 00:00:00 02/14/2019 15:06: 00 DIS Outpatient Prateek Hammond [id number] 02/08/2019 12:27:00 02/08/2019 23:59: 00 DIS Outpatient Prateek Hammond [id number] 01/27/2019 11:34:00 01/27/2019 15:00: 00 DIS Outpatient ELADIO PERRY APRN [id number] 12/31/2018 06:06:00 12/31/2018 16:30: 00 DIS Outpatient Prateek Hammond [facility] MED-SURG [id number] 12/31/2018 07:31:06 Document Registration
[2019-12-05] MEDS ORDERED: RT-ALBUTEROL/IPRATROPIUM 3 ML (DUONEB) VIAL INH SCH (22:00)
[2019-12-06] VITALS (7 sets, daily range): BP systolic 90–127; BP diastolic 60–74
[2019-12-06] MEDS: fentaNYL INJECTION 100 MCG/2 ML AMP IVP PRN ×3 (00:56→08:54)
[2019-12-06] MEDS: RT-ALBUTEROL/IPRATROPIUM 3 ML (DUONEB) VIAL INH SCH ×4 (01:48→21:20)
[2019-12-06] MEDS: NS IV 1000 ML 1,000 ML IV SCH ×4 (02:45→23:00)
[2019-12-06 06:45] LABS: BASOPHILS % (AUTO) 0 % (0-10); EOSINOPHILS # (AUTO) 0.2 10^3/uL (0.0-0.3); EOSINOPHILS % (AUTO) 2 % (0-10); HEMATOCRIT 36 % (35-52); HEMOGLOBIN 11.3 G/DL (11.5-16.0); LYMPHOCYTES # (AUTO) 3.2 X 10^3 (1.0-4.0); LYMPHOCYTES % (AUTO) 42 % (12-44); MEAN CORPUSCULAR HEMOGLOBIN 29 PG (25-34); MEAN CORPUSCULAR HGB CONC 31 G/DL (32-36); MEAN CORPUSCULAR VOLUME 92 FL (80-99); MEAN PLATELET VOLUME 9.1 FL (7.4-10.4); MONOCYTES # (AUTO) 0.5 X 10^3 (0.0-1.0); MONOCYTES % (AUTO) 7 % (0-12); NEUTROPHILS # (AUTO) 3.8 X 10^3 (1.8-7.8); NEUTROPHILS % (AUTO) 49 % (42-75); PLATELET COUNT 322 10^3/uL (130-400); RED CELL DISTRIBUTION WIDTH 14.5 % (10.0-14.5); WHITE BLOOD COUNT 7.8 10^3/uL (4.3-11.0)
[2019-12-06 06:58] LABS: ALBUMIN 3.3 GM/DL (3.2-4.5); CHLORIDE 109 MMOL/L (98-107); POTASSIUM 3.5 MMOL/L (3.6-5.0); SODIUM 139 MMOL/L (135-145)
[2019-12-06 07:00] LABS: CALCIUM 7.9 MG/DL (8.5-10.1)
[2019-12-06 07:01] LABS: GLUCOSE 117 MG/DL (70-105)
[2019-12-06 07:02] LABS: CARBON DIOXIDE 21 MMOL/L (21-32)
[2019-12-06 07:03] LABS: BILIRUBIN,TOTAL 0.3 MG/DL (0.1-1.0)
[2019-12-06 07:04] LABS: ALKALINE PHOSPHATASE 58 U/L (40-136); CREATININE SERUM 0.95 MG/DL (0.60-1.30); GFR ESTIMATED > 60
[2019-12-06 07:05] LABS: BUN/CREATININE RATIO 22
[2019-12-06 07:07] LABS: ALANINE AMINOTRANSFERASE 12 U/L (0-55)
[2019-12-06] MEDS ORDERED: RT-ALBUINH PO (08:37)
[2019-12-06] MEDS ORDERED: IPRA3AMP31 NEB (08:37)
[2019-12-06] MEDS ORDERED: BUPR100T15 PO (08:37)
[2019-12-06] MEDS ORDERED: METF-397 PO (08:37)
[2019-12-06] MEDS ORDERED: AMIT25TA9 PO (08:37)
[2019-12-06] MEDS ORDERED: CARI3CAP PO (08:37)
[2019-12-06] MEDS ORDERED: TRAZ-227 PO (08:37)
[2019-12-06] MEDS ORDERED: POTA10TA36 PO (08:37)
[2019-12-06] MEDS ORDERED: GABA300C PO ×2 (08:37)
[2019-12-06] MEDS ORDERED: LITH300C PO ×2 (08:37)
[2019-12-06] MEDS ORDERED: LISI10TA2 PO (08:37)
[2019-12-06] MEDS ORDERED: DIAZ5TAB49 PO (08:37)
[2019-12-06] MEDS ORDERED: TRIA1TAB5 PO (08:37)
[2019-12-06] MEDS ORDERED: CYCL10TA9 PO (08:37)
[2019-12-06] MEDS ORDERED: MONT10TA26 PO (08:37)
[2019-12-06] MEDS ORDERED: OMEG-160 PO (08:45)
[2019-12-06] MEDS ORDERED: IBUP-2473 PO (08:45)
[2019-12-06] MEDS: SENNA W/DOCUSATE (SENOKOT S) TABLET PO SCH ×2 (08:59→20:25)
[2019-12-06] MEDS ORDERED: MOME0.13 IH (09:01)
[2019-12-06] MEDS ORDERED: PREG150C46 PO (09:01)
[2019-12-06] MEDS ORDERED: APIX5TAB PO (09:01)
[2019-12-06] MEDS ORDERED: ESTR1TAB24 PO (09:01)
[2019-12-06] MEDS ORDERED: cefTRIAXone FOR IV USE 1,000 MG in WATER (STERILE) FOR INJECTION 10 ML IV SCH (10:00)
--- NOTE | 2019-12-06 10:35 | History & Physical-Hospitalist ---
History of Present Illness HPI/Chief Complaint CC: Acute renal failure with oliguria HPI: This is a 54yoWF clinic Pt of [facility] Pietro, who presented to [facility] h weakness and unable to urinate found to have creatinine of 2.4, usual creatinine is normal. Pt was placed on IV fluids, cerda catheter placed, Rocephin initiated for UTI, and CT scan showed worsened ovarian mass, consulted Dr. Bo gynecology, transvaginal ultrasound obtained and will await further recommendations from Dr. Bo. Creatinine is now improved, back to baseline at 0.8, cerda catheter will be discontinued and she will ambulate today while waiting for results from Dr. Bo. Source: patient Exam Limitations: no limitations Date Seen 12/06/19 Time Seen by a Provider: 09:30 Attending Physician Chantal Veras DO PCP Katie Rios Aprn Referring Physician Date of Admission Dec 05, 2019 at 15:55 Home Medications & Allergies Home Medications Reviewed patient Home Medication Reconciliation performed by pharmacy medication reconciliations lot technician and/or nursing. Patients Allergies have been reviewed. Allergies Allergies Coded Allergies hydrocodone (Verified Allergy, Unknown, 12/05/19) latex (Verified Allergy, Unknown, 12/05/19) morphine (Verified Allergy, Unknown, 12/05/19) Uncoded Allergies PENICILLIN ( Allergy, Intermediate, 12/05/19) PLASTIC TAPE ( Allergy, Mild, 12/05/19) Past Kekyetk-Dgttnt-Yqzvkg Hx Past Med/Social Hx: Reviewed Nursing Past Med/Soc Hx, Reviewed and Corrections made Patient Social History Marrital Status: single Employed/Student: unemployed Alcohol Use: Denies Use Recreational Drug Use: No Smoking Status: Former Smoker Former Smoker, Quit: Jul 06, 1993 Type Used: Cigarettes 2nd Hand Smoke Exposure: No Physical Abuse Screen: No Sexual Abuse: No Recent Foreign Travel: No Contact w/other who traveled: No Recent Hopitalizations: No Recent Infectious Disease Expo: No Immunizations Up To Date Date of Influenza Vaccine: Apr 05, 2018 Seasonal Allergies Seasonal Allergies: No Past Medical History Surgeries: Appendectomy, Gallbladder, 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 Cardiac: Deep Vein Thrombosis, Hypertension : No 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 Genitourinary: Bladder Infection, Kidney Stones, UTI-Chronic Gastrointestinal: Hemorrhoids Musculoskeletal: Fibromyalgia Endocrine: Diabetes, Non-Insulin dep Psychosocial: Depression History of Blood Disorders: Yes (Factor 5) Review of Systems Constitutional: see HPI, weakness Genitourinary: decreased output, dysuria, frequency, pain Physical Exam Physical Exam Vital Signs Vital Signs - First Documented 12/05/19 12/05/19 12/06/19 13:15 18:01 10:06 Temp 36.6 Pulse 99 Resp 18 B/P (MAP) 106/63 (77) Pulse Ox 93 O2 Delivery Room Air O2 Flow Rate 2.00 FiO2 21 Capillary Refill : Less Than 3 SecondsLess Than 3 Seconds Height, Weight, BMI Height: 5'2.00" Weight: 180lbs. oz. 81.403676rk; 36.96 BMI Method:Estimated General Appearance: No Apparent Distress, WD/WN, Chronically ill Eyes: Right Eye Normal Inspection, Right Eye PERRL HEENT: PERRL/EOMI, Normal ENT Inspection, Pharynx Normal, Moist Mucous Membranes Neck: Full Range of Motion, Normal Inspection, Non Tender Respiratory: Chest Non Tender, Lungs Clear, Normal Breath Sounds, No Accessory Muscle Use, No Respiratory Distress Cardiovascular: Regular Rate, Rhythm, No Edema, No Gallop, No JVD, No Murmur, Normal Peripheral Pulses Gastrointestinal: Normal Bowel Sounds, No Organomegaly, No Pulsatile Mass, Non Tender, Soft Back: Normal Inspection, No CVA Tenderness, No Vertebral Tenderness Extremity: Normal Capillary Refill, Normal Inspection, Normal Range of Motion, Non Tender, No Calf Tenderness, No Pedal Edema Neurologic/Psychiatric: Alert, Oriented x3, No Motor/Sensory Deficits, Normal Mood/Affect Skin: Normal Color, Warm/Dry Lymphatic: No Adenopathy Results Results/Procedures Labs Laboratory Tests 12/05/19 13:30 12/06/19 06:15 Patient resulted labs reviewed. Assessment/Plan Admission Diagnosis Assessment: ARF UTI Oliguria DUB s/p Hyst BSO consulted Dr Bo Mental illness on Rendon Clotting disorder on OAC HTN Hypokalemia Plan: Check labs in am with Rendon Replace potassium Home meds Hodl nephrotoxic meds Dr Bo consult Admission Status: Inpatient Order (span 2 midnights) Reason for Inpatient Admission: arf with uti Diagnosis/Problems Diagnosis/Problems (1) Acute kidney injury Status: Acute (2) Urinary tract infection Status: Acute Clinical Quality Measures DVT/VTE Risk/Contraindication: Risk Factor Score Per Nursin RFS Level Per Nursing on Admit: 4+=Very High CHANTAL VERAS 2, 2020 10:35
--- NOTE | 2019-12-06 10:39 | NUR ---
SPOKE WITH THE PT, WENT THRU THE EXT MED HISTORY & CALLED CHARLETTE NGUYEN AND ZACKERY TO COMPLETE THE MED REC 10-17-2019 ELIQUIS 5MG #180/90DS (THIS WAS NOT LISTED ON THE EXT MED HISTORY) ASMANEX WAS LAST FILLED THRU THE REPOSITORY JULY 2019 (PT USES THIS PRN) LYRICA 150MG LAST FILLED 09-16-2019 #60/30DS- I DID DOCUMENT THE PAST DUE FILL ON THE MED REC OTC MEDS: IBUPROFEN FISH OIL
[2019-12-06] MEDS ORDERED: POTASSIUM PHOSPHATE INJ 15 MM in NS (IVPB) 250 ML IV ONE (10:45)
[2019-12-06] MEDS ORDERED: MAGNESIUM 1 GM/100 ML IVPB 100 ML IV ONE (10:45)
[2019-12-06] MEDS ORDERED: fentaNYL INJECTION 100 MCG/2 ML AMP IVP STA (11:05)
--- NOTE | 2019-12-06 11:26 | Diagnostic Imaging Report ---
PROCEDURE: US Non-ob pelvis comp/trans. TECHNIQUE: Multiple Real-time grayscale images were obtained of the pelvis in various projections endovaginally. Transabdominal imaging was also performed. INDICATION: Pelvic pain. COMPARISON: There are no prior ultrasound examinations available for comparison. The CT abdomen/pelvis exam of 12/05/2019 noted a 2.9 cm rounded area of low density in the right pelvis at the level of the iliac crest. The possibility that this is related to an ovarian cyst was raised. FINDINGS: By history, both the uterus and ovaries are surgically absent. The cystic mass seen on the CT exam could not be visualized on this study. It is possible that the apparent cystic mass was related to a fluid-filled segment of small bowel. In reviewing the CT exam, however, it does seem that the apparent cyst was separate from the bowel. This cystic mass also appears to have been present on the prior exam of 12/31/2018 at which time it measured only 2.0 cm. If further evaluation is desired, then a followup CT abdomen exam with contrast would be recommended. There is no pelvic mass or free fluid collection noted otherwise. IMPRESSION: The cystic mass in the right pelvis seen on the recent CT abdomen/pelvis exam could not be identified on this study. Considerations and recommendations as above. Dictated by: Dictated on workstation # [id number]
[2019-12-06] MEDS ORDERED: fentaNYL INJECTION 100 MCG/2 ML AMP IVP PRN (11:30)
--- NOTE | 2019-12-06 13:04 | Consultation ---
History of Present Illness History of Present Illness Patient Consulted On(yamini/time) 12/06/19 12:57 Date Seen by Provider: Dec 06, 2019 Time Seen by Provider: 12:00 Reason for Visit: vaginal bleeding, pelvic mass History of Present Illness This is a 54 year old post menopausal female. I was asked to consult due to abnormal finding on CT scan. She had been admitted through the Ed at [facility] due to KRISTIE/UTI/pyelonephritis. A CT of the abdomen and pelvis was done for kidney stone protocol. patient states she had been having bilateral flank pain and "felt like when I had a kidney stone". Also had urgency with decreased urination and defecation. CT of the abdomen/pelvis showed a 2.9 cm in the right pelvis near the psoas and iliac muscles. Her urinalysis is consistent with UTI. Creatinine was 2.48 but with hydration has decreased to 0.95. WBC was 20,000 with a left shift and bandemia, but is wbc is currently 7.8. She is on appropriate antibiotics. She states she has had at least 4 cultured UTIs in the last few months. She states she was on appropriate antibiotics. She has had a hysterectomy in 1995. This was a NATHALY/BSO due to endometriosis. She had been treated with OCPs prior to that and states "nothing worked". She states she is , but "I wasn't ever supposed to have children". She has been on estradiol, but she does not know the dose. The patient is also not sexually active. She states she has had vaginal bleeding, 'like spotting" off and on for several days. she also states she has had vaginal discharge, like a yeast infection. She states Dr. Pires, her computer trainer, removed a "cyst" from her vagina about 3 -4 weeks ago. She said he did it in the office, but when she asked if he removed the cyst wall he said he had not. She states she still feels a spot there. She is not using vaginal estrogen. Allergies and Home Medications Allergies Coded Allergies: hydrocodone (Verified Allergy, Unknown, 12/05/19) latex (Verified Allergy, Unknown, 12/05/19) morphine (Verified Allergy, Unknown, 12/05/19) Uncoded Allergies: PENICILLIN (Allergy, Intermediate, 12/05/19) PLASTIC TAPE (Allergy, Mild, 12/05/19) Home Medications Albuterol Sulfate 1 Puff Puff, 2 PUFF PO Q4H PRN for SHORTNESS OF BREATH, (Reported) Amitriptyline HCl 25 Mg Tablet, 25 MG PO HS, (Reported) Apixaban 5 Mg Tablet, 5 MG PO BID, (Reported) Bupropion HCl 100 Mg Tablet, 100 MG PO BID, (Reported) Cariprazine Hydrochloride 3 Mg Capsule, 3 MG PO DAILY, (Reported) Cyclobenzaprine HCl 10 Mg Tablet, 10 MG PO BID, (Reported) Diazepam 5 Mg Tablet, 5 MG PO HS, (Reported) Estradiol 1 Mg Tablet, 1 MG PO DAILY, (Reported) Gabapentin 300 Mg Capsule, 300 MG PO DAILY, (Reported) Gabapentin 300 Mg Capsule, 600 MG PO HS, (Reported) TAKES 2 (300NG) TABS Ibuprofen 200 Mg Tablet, 400-600 MG PO Q8H PRN for PAIN-MILD (1-4), (Reported) Ipratropium/Albuterol Sulfate 3 Ml Ampul.neb, 1 VIAL NEB Q6H PRN for SHORTNESS OF BREATH, (Reported) Lisinopril 10 Mg Tablet, 10 MG PO DAILY, (Reported) [place] Carbonate 300 Mg Capsule, 600 MG PO HS, (Reported) TAKES 2 (300MG) CAPS AT BEDTIME [place] Carbonate 300 Mg Capsule, 300 MG PO DAILY, (Reported) Metformin HCl 500 Mg Tablet, 500 MG PO HS, (Reported) Mometasone Furoate 110 Mcg Aer.pow.ba, 2 PUFF IH BID PRN for SHORTNESS OF BREATH, (Reported) Montelukast Sodium 10 Mg Tablet, 10 MG PO HS, (Reported) [place]-3/Dha/Epa/Fish Oil 1 Each Capsule, 1 EACH PO DAILY, (Reported) Potassium Chloride 10 Meq Tab.er.prt, 10 MEQ PO BID WITH MEALS, (Reported) Pregabalin 150 Mg Capsule, 150 MG PO BID, (Reported) LAST FILLED 09-16-2019 #60 Trazodone HCl 100 Mg Tablet, 100-200 MG PO HS PRN for SLEEP, (Reported) TAKES 1 TO 2 (100MG) TABS AT BEDTIME Triamterene/Hydrochlorothiazid 1 Each Tablet, 1 EA PO DAILY, (Reported) Patient Home Medication List Home Medication List Reviewed: Yes Past Cjkhsnw-Abxqmj-Qmbmwu Hx Past Med/Social Hx: Reviewed Nursing Past Med/Soc Hx Patient Social History Alcohol Use: Denies Use Recreational Drug Use: No Smoking Status: Former Smoker Type Used: Cigarettes Former Smoker, Quit: Jul 06, 1993 2nd Hand Smoke Exposure: No Recent Foreign Travel: No Contact w/Someone Who Travel: No Recent Infectious Disease Expo: No Recent Hopitalizations: No Physical Abuse: No Sexual Abuse: No Mistreated: No Fear: No Immunizations Up To Date Date of Influenza Vaccine: Apr 05, 2018 Seasonal Allergies Seasonal Allergies: No Past Medical History Surgeries: Yes (hemorrhoidecotomy, bladder pin-up, hernia repairs with mesh) Appendectomy, Gallbladder, 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 (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 History: 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 Genitourinary: Yes Bladder Infection, Kidney Stones, UTI-Chronic Gastrointestinal: Yes Hemorrhoids Musculoskeletal: Yes Fibromyalgia Endocrine: Yes Diabetes, Non-Insulin dep HEENT: No Cancer: No Psychosocial: Yes Depression Integumentary: No Blood Disorders: Yes (Factor 5) Review of Systems-General Gastrointestinal: LLQ Genitourinary: other (vaginal dc, itching, spotting) Physical Exam-General Problems Physical Exam Vital Signs Vital Signs - First Documented 12/05/19 12/05/19 12/06/19 13:15 18:01 10:06 Temp 36.6 Pulse 99 Resp 18 B/P (MAP) 106/63 (77) Pulse Ox 93 O2 Delivery Room Air O2 Flow Rate 2.00 FiO2 21 Capillary Refill : Less Than 3 SecondsLess Than 3 Seconds General Appearance: no apparent distress Gastrointestinal: tenderness (generalized, but LLQ but no RLQ pain. ) Genital/Rectal: other (small, less than 1 cm bartholin's cyst/nodule, no bleeding. flocculent dc consistent with yeast. ) Assessment/Plan Assessment/Plan Admission Diagnosis/Plan 1. nodule in pelvis has been present for over [address] and is likely stable. May be an endometrioma but patient does not have ovaries. She couldv'e had an ovarian remnant but it is insignificant at this time. Her pain is on the opposite side of the nodule. 2. vaginal candidiasis - Rx diflucan, needs 150 mg x 1 at discharge to be given in 72 hours 3. possible bartholin's cyst - expectant management at this time; warm compresses/sitz baths 4. suspect vaginal bleeding is due to this cystic area; but recommend follow up with dr. Pires regarding this 5. Patient has history of PE and DVT and FVL. I would recommend that she not be on estradiol. she states she forgot to tell Dr. Desir she was on it and cannot remember the dose, but I would not recommend that she continue this. 6. Recurrent UTI. She may need a urology consult due to recent multiple UTIs and recent pyelonephritis. Clinical Quality Measures DVT/VTE Risk/Contraindication: Risk Factor Score Per Nursin RFS Level Per Nursing on Admit: 4+=Very High OZZY OSPINA DO Dec 06, 2019 13:04
[2019-12-06] MEDS ORDERED: fluCOnazole (DIFLUCAN) 100 MG TAB PO NR (13:15)
[2019-12-06] MEDS ORDERED: FLUC150T PO (14:14)
[2019-12-06] MEDS: ACETAMINOPHEN 500 MG TAB (TYLENOL) PO PRN (14:49)
[2019-12-06] MEDS ORDERED: FLUTICASONE 110 MCG INHALER (FLOVENT) 12 GM INH PRN (20:15)
[2019-12-06] MEDS ORDERED: RT-ALBUTEROL SULF 2.5 MG/3 ML PRE-MIX VIAL IH PRN (20:15)
[2019-12-06] MEDS ORDERED: MOMETASONE FUROATE IH PRN (20:15)
[2019-12-06] MEDS ORDERED: traZODone 100 MG (DESYREL) TAB PO PRN (20:15)
[2019-12-06] MEDS ORDERED: RT-ALBUTEROL/IPRATROPIUM 3 ML (DUONEB) VIAL IH PRN (20:15)
[2019-12-06] MEDS: APIXABAN 5 MG (ELIQUIS) TABLET PO SCH (20:25)
[2019-12-06] MEDS ORDERED: GABAPENTIN 300 MG (NEURONTIN) CAP PO SCH (21:00)
[2019-12-06] MEDS ORDERED: AMITRIPTYLINE 25 MG (ELAVIL) TAB PO SCH (21:00)
[2019-12-06] MEDS ORDERED: MONTELUKAST 10 MG (SINGULAIR) TAB PO SCH (21:00)
[2019-12-06] MEDS ORDERED: LITHIUM CARBONATE 300 MG TABLET PO SCH (21:00)
[2019-12-06] MEDS ORDERED: DIAZEPAM 5 MG (VALIUM) TABLET PO SCH (21:00)
[2019-12-06] MEDS: PREGABALIN 150 MG (LYRICA) CAPSULE PO SCH (23:00)
[2019-12-06] MEDS: CYCLOBENZAPRINE 10 MG (FLEXERIL) TAB PO SCH (23:00)
[2019-12-07] VITALS: BP 127/81
[2019-12-07] MEDS: RT-ALBUTEROL/IPRATROPIUM 3 ML (DUONEB) VIAL INH SCH ×2 (01:52→07:06)
[2019-12-07] MEDS: NS IV 1000 ML 1,000 ML IV SCH (04:28)
[2019-12-07 04:57] LABS: BASOPHILS % (AUTO) 0 % (0-10); EOSINOPHILS # (AUTO) 0.3 10^3/uL (0.0-0.3); EOSINOPHILS % (AUTO) 4 % (0-10); HEMATOCRIT 35 % (35-52); HEMOGLOBIN 10.9 G/DL (11.5-16.0); LYMPHOCYTES # (AUTO) 2.7 X 10^3 (1.0-4.0); LYMPHOCYTES % (AUTO) 44 % (12-44); MEAN CORPUSCULAR HEMOGLOBIN 29 PG (25-34); MEAN CORPUSCULAR HGB CONC 31 G/DL (32-36); MEAN CORPUSCULAR VOLUME 92 FL (80-99); MEAN PLATELET VOLUME 9.4 FL (7.4-10.4); MONOCYTES # (AUTO) 0.5 X 10^3 (0.0-1.0); MONOCYTES % (AUTO) 7 % (0-12); NEUTROPHILS # (AUTO) 2.7 X 10^3 (1.8-7.8); NEUTROPHILS % (AUTO) 44 % (42-75); PLATELET COUNT 297 10^3/uL (130-400); WHITE BLOOD COUNT 6.1 10^3/uL (4.3-11.0)
[2019-12-07 05:02] LABS: ALBUMIN 3.3 GM/DL (3.2-4.5); CHLORIDE 107 MMOL/L (98-107); POTASSIUM 3.7 MMOL/L (3.6-5.0); SODIUM 141 MMOL/L (135-145)
[2019-12-07 05:03] LABS: CALCIUM 8.5 MG/DL (8.5-10.1)
[2019-12-07 05:04] LABS: GLUCOSE 108 MG/DL (70-105)
[2019-12-07 05:05] LABS: CARBON DIOXIDE 25 MMOL/L (21-32)
[2019-12-07 05:06] LABS: BILIRUBIN,TOTAL 0.2 MG/DL (0.1-1.0)
[2019-12-07 05:08] LABS: ALKALINE PHOSPHATASE 60 U/L (40-136); CREATININE SERUM 0.65 MG/DL (0.60-1.30); GFR ESTIMATED > 60
[2019-12-07 05:09] LABS: BUN/CREATININE RATIO 12
[2019-12-07 05:11] LABS: ALANINE AMINOTRANSFERASE 15 U/L (0-55)
[2019-12-07 08:00] VITALS: BP 134/80
[2019-12-07] MEDS ORDERED: KCL 10 MEQ TAB (MICRO K) PO SCH (08:00)
[2019-12-07] MEDS ORDERED: NON-FORMULARY MEDICATION 1 EA EA (Potassium Chloride 10 MEQ) PO SCH (08:00)
[2019-12-07] MEDS ORDERED: buPROPion 100 MG (WELLBUTRIN) TAB PO SCH (08:00)
[2019-12-07] MEDS ORDERED: GABAPENTIN 300 MG (NEURONTIN) CAP PO SCH (09:00)
[2019-12-07] MEDS ORDERED: OMEGA 3 (FISH OIL) 1000 MG CAP PO SCH (09:00)
[2019-12-07] MEDS ORDERED: LITHIUM CARBONATE 300 MG TABLET PO SCH (09:00)
[2019-12-07] MEDS ORDERED: NON-FORMULARY MEDICATION 1 EA EA (Cariprazine Hydrochloride (Vraylar) 3 MG) PO SCH (09:00)
[2019-12-07] MEDS ORDERED: NON-FORMULARY MEDICATION 1 EA EA (Omega-3/Dha/Epa/Fish Oil (Fish Oil 1,000 mg Softgel) 1 E PO SCH (09:00)
[2019-12-07] MEDS: CYCLOBENZAPRINE 10 MG (FLEXERIL) TAB PO SCH (09:25)
[2019-12-07] MEDS: APIXABAN 5 MG (ELIQUIS) TABLET PO SCH (09:25)
[2019-12-07] MEDS: SENNA W/DOCUSATE (SENOKOT S) TABLET PO SCH (09:25)
[2019-12-07] MEDS: PREGABALIN 150 MG (LYRICA) CAPSULE PO SCH (09:25)
[2019-12-07] MEDS: ACETAMINOPHEN 500 MG TAB (TYLENOL) PO PRN (09:33)
--- NOTE | 2019-12-07 11:01 | Discharge Summary ---
Discharge Summary Hospital Course Was the Problem List Reviewed?: Yes Problems/Dx: (1) Acute kidney injury Status: Acute (2) Urinary tract infection Status: Acute Hospital Course Date of Admission: Dec 05, 2019 at 15:55 Admission Diagnosis : Family Physician/Provider: [facility] Date of Discharge: 12/07/19 Discharge Diagnosis: ARF, DM, Mental illness, pelvic mass/cyst Hospital Course: Hospital Course: Pt had an uneventful hospital course, she was admitted for acute renal failure creatinine 2.4 with a normal creatinine usually. Cyst like structure was addressed by Dr. Bo PATTERN CHART WRITER, recommended stopping Estradiol. Pt was restarted on all of her home medication except for nephrotoxic medications of Ibuprofen and Lisinopril and a lot of other medications that she will address with her STRATIGRAPHER Alfred to manage that. Urine culture was no growth to date, did not require any antibiotics. Diflucan was prescribed by Dr. Bo and had no changes to her status during her hospital stay. Ordonez catheter was DC and she was able to be discharged in improved condition with close follow up with STRATIGRAPHER Katie Simon. Labs and Pending Lab Test: Laboratory Tests 12/07/19 04:19: White Blood Count 6.1, Red Blood Count 3.80L, Hemoglobin 10.9L, Hematocrit 35, Mean Corpuscular Volume 92, Mean Corpuscular Hemoglobin 29, Mean Corpuscular Hemoglobin Concent 31L, Red Cell Distribution Width 14.0, Platelet Count 297, Mean Platelet Volume 9.4, Neutrophils (%) (Auto) 44, Lymphocytes (%) (Auto) 44, Monocytes (%) (Auto) 7, Eosinophils (%) (Auto) 4, Basophils (%) (Auto) 0, Neutrophils # (Auto) 2.7, Lymphocytes # (Auto) 2.7, Monocytes # (Auto) 0.5, Eosinophils # (Auto) 0.3, Basophils # (Auto) 0.0, Sodium Level 141, Potassium Level 3.7, Chloride Level 107, Carbon Dioxide Level 25, Anion Gap 9, Blood Urea Nitrogen 8, Creatinine 0.65, Estimat Glomerular Filtration Rate > 60, BUN/Creatinine Ratio 12, Glucose Level 108H, Calcium Level 8.5, Corrected Calc ium 9.1, Total Bilirubin 0.2, Aspartate Amino Transf (AST/SGOT) 18, Alanine Aminotransferase (ALT/SGPT) 15, Alkaline Phosphatase 60, Total Protein 6.0L, Albumin 3.3, [place] Level [Pending] Microbiology 12/05/19 Blood Culture - Preliminary, Resulted No growth 12/05/19 Urine Culture - Final, Complete NO GROWTH Home Meds Active Diflucan (Fluconazole) 150 Mg Tablet 150 Mg PO DAILY Take this in 72 hours Reported Asmanex (Mometasone Furoate) 110 Mcg Aer.pow.ba 2 Puff IH BID PRN Pregabalin 150 Mg Capsule 150 Mg PO BID LAST FILLED 09-16-2019 #60 Eliquis (Apixaban) 5 Mg Tablet 5 Mg PO BID Estradiol Tablet (Estradiol) 1 Mg Tablet 1 Mg PO DAILY Fish Oil 1,000 mg Softgel ([place]-3/Dha/Epa/Fish Oil) 1 Each Capsule 1 Each PO DAILY Ibuprofen 200 Mg Tablet 400-600 Mg PO Q8H PRN Metformin HCl 500 Mg Tablet 500 Mg PO HS Bupropion HCl 100 Mg Tablet 100 Mg PO BID Amitriptyline HCl 25 Mg Tablet 25 Mg PO HS Montelukast Sodium 10 Mg Tablet 10 Mg PO HS Potassium Chloride 10 Meq Tab.er.prt 10 Meq PO BID WITH MEALS Diazepam 5 Mg Tablet 5 Mg PO HS Cyclobenzaprine HCl 10 Mg Tablet 10 Mg PO BID Triamterene-Hctz 75-50 mg Tab (Triamterene/Hydrochlorothiazid) 1 Each Tablet 1 Ea PO DAILY Trazodone HCl 100 Mg Tablet 100-200 Mg PO HS PRN TAKES 1 TO 2 (100MG) TABS AT BEDTIME Lisinopril 10 Mg Tablet 10 Mg PO DAILY [place] Carbonate 300 Mg Capsule 300 Mg PO DAILY [place] Carbonate 300 Mg Capsule 600 Mg PO HS TAKES 2 (300MG) CAPS AT BEDTIME Vraylar (Cariprazine Hydrochloride) 3 Mg Capsule 3 Mg PO DAILY Iprat-Albut 0.5-3(2.5) mg/3 ml (Ipratropium/Albuterol Sulfate) 3 Ml Ampul.neb 1 Vial NEB Q6H PRN Proair Hfa (Albuterol Sulfate) 1 Puff Puff 2 Puff PO Q4H PRN Neurontin (Gabapentin) 300 Mg Capsule 600 Mg PO HS TAKES 2 (300NG) TABS Neurontin (Gabapentin) 300 Mg Capsule 300 Mg PO DAILY Assessment/Pt Instructions [facility] [address] Pires in 2 weeks Discharge Planning: <30 minutes discharge planning Discharge Instructions Discharge Diet: No Restrictions Pneumonia Vaccine Order Indica: Yes Discharge Physical Examination Vital Signs Vital Signs Date Time Temp Pulse Resp B/P (MAP) Pulse Ox O2 Delivery O2 Flow Rate FiO2 12/07/19 08:00 Room Air 12/07/19 08:00 36.7 79 19 134/80 (98) 96 12/06/19 12:00 2.00 12/06/19 10:06 21 General Appearance: No Apparent Distress, WD/WN Allergies: Coded Allergies: hydrocodone (Verified Allergy, Unknown, 12/05/19) latex (Verified Allergy, Unknown, 12/05/19) morphine (Verified Allergy, Unknown, 12/05/19) Uncoded Allergies: PENICILLIN (Allergy, Intermediate, 12/05/19) PLASTIC TAPE (Allergy, Mild, 12/05/19) Discharge Summary Date of Admission Dec 05, 2019 at 15:55 Date of Discharge Discharge Date: Dec 07, 2019 Admission Diagnosis Assessment: ARF UTI Oliguria DUB s/p Hyst BSO consulted Dr Bo Mental illness on [place] Clotting disorder on OAC HTN Hypokalemia Plan: Check labs in am with [place] Replace potassium Home meds Hodl nephrotoxic meds Dr Bo consult Discharge Diagnosis (1) Acute kidney injury Status: Acute (2) Urinary tract infection Status: Acute Clinical Quality Measures DVT/VTE Risk/Contraindication: Risk Factor Score Per Nursin RFS Level Per Nursing on Admit: 4+=Very High DARION VERAS DO Dec 07, 2019 11:01
[2019-12-07 12:49] VITALS: BP 134/80
--- NOTE | 2019-12-07 12:50 | NUR ---
NICKIE CHUA demonstrates understanding of discharge instructions and accurately returns instructions upon questioning. Copy of Post-Discharge Instructions given to PT. NICKIE CHUA is able to manage continuing needs after discharge. Patients belongings returned to PT. Patient discharged from [facility] on 12/07/19 at 1250 . NICKIE CHUA left floor via W/C, accompanied by STAFF DAUGHTER PER AUTO.
== END 2019-12-07 12:50 | disposition home or self-care (01) | DRG 683 ==
LOC: EDUNIT# 13:04 → ER FS 13:06 → 4TH 15:55
PROVIDERS: ADMIT Internal Medicine; ATTEND Internal Medicine
DX: N17.9 Acute kidney failure, unspecified (principal); N39.0 Urinary tract infection, site not specified; D68.2 Hereditary deficiency of other clotting factors; R19.00 Intra-abdominal and pelvic swelling, mass and lump, unspecified site; B37.3 Candidiasis of vulva and vagina; N75.0 Cyst of Bartholin's gland; N93.8 Other specified abnormal uterine and vaginal bleeding; J44.9 Chronic obstructive pulmonary disease, unspecified; I10 Essential (primary) hypertension; E11.9 Type 2 diabetes mellitus without complications; M79.7 Fibromyalgia; F32.9 Major depressive disorder, single episode, unspecified; E66.9 Obesity, unspecified; K59.00 Constipation, unspecified; E87.6 Hypokalemia; Z86.711 Personal history of pulmonary embolism; Z86.718 Personal history of other venous thrombosis and embolism; Z68.37 Body mass index [BMI] 37.0-37.9, adult; Z87.442 Personal history of urinary calculi; Z87.891 Personal history of nicotine dependence
CPT/HCPCS: 36415; 51702; 74176; 76830; 76856; 80053; 80178; 81000; 82150; 83605; 83690; 85007; 85025; 85027; 87040; 87088; 94640; 94760

== ENCOUNTER → 2019-12-08 | Outpatient (CLI) | payer OTHER ==
[~2019-12-08] MED LIST: AMIT25TA9 PO; APIX5TAB PO; BUPR100T15 PO; CARI3CAP PO; CYCL10TA9 PO; DIAZ5TAB49 PO; ESTR1TAB24 PO; FLUC150T PO; GABA300C PO; IBUP-2473 PO; IPRA3AMP31 NEB; LISI10TA2 PO; LITH300C PO; METF-397 PO; MOME0.13 IH; MONT10TA26 PO; OMEG-160 PO; POTA10TA36 PO; PREG150C46 PO; RT-ALBUINH PO; TRAZ-227 PO; TRIA1TAB5 PO
[2019-12-08 15:29] LABS: BASOPHILS % (AUTO) 0 % (0-10); EOSINOPHILS # (AUTO) 0.4 10^3/uL (0.0-0.3); EOSINOPHILS % (AUTO) 4 % (0-10); HEMATOCRIT 40 % (35-52); HEMOGLOBIN 12.7 G/DL (11.5-16.0); LYMPHOCYTES # (AUTO) 2.9 X 10^3 (1.0-4.0); LYMPHOCYTES % (AUTO) 32 % (12-44); MEAN CORPUSCULAR HEMOGLOBIN 29 PG (25-34); MEAN CORPUSCULAR HGB CONC 32 G/DL (32-36); MEAN CORPUSCULAR VOLUME 90 FL (80-99); MEAN PLATELET VOLUME 8.8 FL (7.4-10.4); MONOCYTES # (AUTO) 0.6 X 10^3 (0.0-1.0); MONOCYTES % (AUTO) 7 % (0-12); NEUTROPHILS # (AUTO) 5.3 X 10^3 (1.8-7.8); NEUTROPHILS % (AUTO) 57 % (42-75); PLATELET COUNT 383 10^3/uL (130-400); RED CELL DISTRIBUTION WIDTH 13.6 % (10.0-14.5); WHITE BLOOD COUNT 9.2 10^3/uL (4.3-11.0)
[2019-12-08 15:55] LABS: CHLORIDE 103 MMOL/L (98-107); SODIUM 142 MMOL/L (135-145)
[2019-12-08 15:56] LABS: ALANINE AMINOTRANSFERASE 11 U/L (0-55); ALKALINE PHOSPHATASE 77 U/L (40-136); BILIRUBIN,TOTAL 0.2 MG/DL (0.1-1.0); BUN/CREATININE RATIO 15; CALCIUM 9.6 MG/DL (8.5-10.1); CARBON DIOXIDE 27 MMOL/L (21-32); CREATININE SERUM 0.59 MG/DL (0.60-1.30); GFR ESTIMATED > 60; GLUCOSE 112 MG/DL (70-105); TOTAL PROTEIN 7.3 GM/DL (6.4-8.2)
== END ==
LOC: LAB FS 14:51
PROVIDERS: ATTEND Nurse Practitioner Family
DX: N30.01 Acute cystitis with hematuria (principal); Z86.19 Personal history of other infectious and parasitic diseases
CPT/HCPCS: 36415; 80053; 83605; 85025

== ENCOUNTER 2019-12-15 18:14 | Emergency (ER) | payer OTHER ==
[~2019-12-15] VITALS: Ht 154 cm; Wt 85.0 kg
[2019-12-15] MEDS ORDERED: NS 100 ML (IVPB) BAG IV ONE (18:45)
[2019-12-15] MEDS ORDERED: CATHETER FLUSH 10 ML SYR IV PRN (18:45)
[2019-12-15] MEDS ORDERED: IOHEXOL 350 MG/ML 150 ML (OMNIPAQUE 350) VIAL IV ONE (18:45)
[2019-12-15] MEDS ORDERED: HOLD METFORMIN - RECEIVED CONTRAST 20 ML VIAL IV SCH (18:45)
[2019-12-15 18:47] LABS: BASOPHILS # (AUTO) 0.1 10^3/uL (0.0-0.1); BASOPHILS % (AUTO) 0 % (0-10); EOSINOPHILS # (AUTO) 0.3 10^3/uL (0.0-0.3); EOSINOPHILS % (AUTO) 2 % (0-10); HEMATOCRIT 43 % (35-52); HEMOGLOBIN 14.1 G/DL (11.5-16.0); LYMPHOCYTES # (AUTO) 4.5 X 10^3 (1.0-4.0); LYMPHOCYTES % (AUTO) 38 % (12-44); MEAN CORPUSCULAR HEMOGLOBIN 29 PG (25-34); MEAN CORPUSCULAR HGB CONC 33 G/DL (32-36); MEAN CORPUSCULAR VOLUME 88 FL (80-99); MEAN PLATELET VOLUME 9.1 FL (7.4-10.4); MONOCYTES # (AUTO) 0.8 X 10^3 (0.0-1.0); MONOCYTES % (AUTO) 6 % (0-12); NEUTROPHILS # (AUTO) 6.2 X 10^3 (1.8-7.8); NEUTROPHILS % (AUTO) 53 % (42-75); PLATELET COUNT 438 10^3/uL (130-400); RED CELL DISTRIBUTION WIDTH 13.6 % (10.0-14.5); WHITE BLOOD COUNT 11.8 10^3/uL (4.3-11.0)
[2019-12-15] MEDS ORDERED: fentaNYL INJECTION 100 MCG/2 ML AMP IVP STA (18:51)
[2019-12-15] MEDS ORDERED: NS IV 1000 ML 1,000 ML IV STA (18:51)
[2019-12-15 18:56] LABS: INR 0.9 (0.8-1.4); PROTHROMBIN TIME PATIENT 12.9 SEC (12.2-14.7)
--- NOTE | 2019-12-15 19:07 | ED Chest Pain ---
General Chief Complaint: Respiratory Problems Stated Complaint: TROUBLE BREATHING,BACK/LUNG PAIN Nursing Triage Note: PT REPORTS SHE WAS IN THE HOSPITAL AND RELASED A WEEK AGO THURSDAY. SHE WAS GETTING HEPARIN INJECTIONS WHILE IN THE HOPSITAL AND THEY TOLD HER NOT TO RESUME HER ELIQUIS FOR ONE WEEK. SHE STARTED IT BACK TODAY AND NOW HAS PAIN IN HER LEFT UPPER BACK AND HURTS TO TAKE A DEEP BREATH. SHE REPORTS A HX OF PE'S. Nursing Sepsis Screen: No Definite Risk Source: patient, old records History of Present Illness Date Seen by Provider: Dec 15, 2019 Time Seen by Provider: 18:40 Initial Comments 54-year-old female presenting with complaints of pleuritic pain and left posterior chest. She states this has been since last night. It was worse with deep breaths and movement. She has a history of blood clots in her lungs and legs and this feels similar to when she has had a blood clot in her lung. She was offered Eliquis until this morning as she had been in the hospital and she reports they told her not to take any for a week. She is on an antibiotic for her urine infection and still having some pain with urination. She also has some nausea. She denies any actual vomiting. She gets more short of breath and has more pain in her left posterior chest with movement and exertion. She has not taken anything for the pain today. She was working until this evening when she came into the emergency department. Allergies and Home Medications Allergies Coded Allergies: hydrocodone (Verified Allergy, Unknown, 12/05/19) latex (Verified Allergy, Unknown, 12/05/19) morphine (Verified Allergy, Unknown, 12/05/19) Uncoded Allergies: PENICILLIN (Allergy, Intermediate, 12/05/19) PLASTIC TAPE (Allergy, Mild, 12/05/19) Home Medications Albuterol Sulfate 1 Puff Puff, 2 PUFF PO Q4H PRN for SHORTNESS OF BREATH, (Reported) Amitriptyline HCl 25 Mg Tablet, 25 MG PO HS, (Reported) Apixaban 5 Mg Tablet, 5 MG PO BID, (Reported) Bupropion HCl 100 Mg Tablet, 100 MG PO BID, (Reported) Cariprazine Hydrochloride 3 Mg Capsule, 3 MG PO DAILY, (Reported) Cyclobenzaprine HCl 10 Mg Tablet, 10 MG PO BID, (Reported) Diazepam 5 Mg Tablet, 5 MG PO HS, (Reported) Fluconazole 150 Mg Tablet, 150 MG PO DAILY Take this in 72 hours Prescribed by: OZZY OSPINA on 12/06/19 1414 Gabapentin 300 Mg Capsule, 300 MG PO DAILY, (Reported) Gabapentin 300 Mg Capsule, 600 MG PO HS, (Reported) TAKES 2 (300NG) TABS Ipratropium/Albuterol Sulfate 3 Ml Ampul.neb, 1 VIAL NEB Q6H PRN for SHORTNESS OF BREATH, (Reported) [place] Carbonate 300 Mg Capsule, 600 MG PO HS, (Reported) TAKES 2 (300MG) CAPS AT BEDTIME [place] Carbonate 300 Mg Capsule, 300 MG PO DAILY, (Reported) Mometasone Furoate 110 Mcg Aer.pow.ba, 2 PUFF IH BID PRN for SHORTNESS OF BREATH, (Reported) Montelukast Sodium 10 Mg Tablet, 10 MG PO HS, (Reported) [place]-3/Dha/Epa/Fish Oil 1 Each Capsule, 1 EACH PO DAILY, (Reported) Oxycodone HCl/Acetaminophen 1 Each Tablet, 1 EACH PO Q6H PRN for PAIN-SEVERE (8- 10) Prescribed by: MAGALIE JOSÉ on 12/15/192032 Potassium Chloride 10 Meq Tab.er.prt, 10 MEQ PO BID WITH MEALS, (Reported) Pregabalin 150 Mg Capsule, 150 MG PO BID, (Reported) LAST FILLED 09-16-2019 #60 Trazodone HCl 100 Mg Tablet, 100-200 MG PO HS PRN for SLEEP, (Reported) TAKES 1 TO 2 (100MG) TABS AT BEDTIME Patient Home Medication List Home Medication List Reviewed: Yes Review of Systems Review of Systems Constitutional: No chills, No fever EENTM: No Symptoms Reported Respiratory: See HPI Cardiovascular: See HPI Gastrointestinal: Abdominal Pain (chronic abdominal pain from hernia. No different than normal today.), Nausea; Denies Vomiting Genitourinary: Burning, Frequency Musculoskeletal: back pain (left posterior chest pain in the lower chest around the left CVA area. Pain is increased with deep breaths and movement) Skin: no symptoms reported Psychiatric/Neurological: Denies Headache, Denies Numbness Hematologic/Lymphatic: Blood Clots (history of blood clots and was just started back on her Eliquis this morning) Past Nwwbufl-Yztgkx-Ukycep Hx Past Med/Social Hx: Reviewed Nursing Past Med/Soc Hx Patient Social History Alcohol Use: Denies Use Recreational Drug Use: No Smoking Status: Former Smoker Type Used: Cigarettes Former Smoker, Quit: Jul 06, 1993 2nd Hand Smoke Exposure: No Recent Foreign Travel: No Contact w/Someone Who Travel: No Recent Infectious Disease Expo: No Recent Hopitalizations: No Physical Abuse: No Sexual Abuse: No Mistreated: No Fear: No Immunizations Up To Date Date of Influenza Vaccine: Apr 05, 2018 Seasonal Allergies Seasonal Allergies: No Past Medical History Surgeries: Yes (hemorrhoidecotomy, bladder pin-up, hernia repairs with mesh) Appendectomy, Gallbladder, 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 Respiratory: Yes Asthma, Pulmonary Embolism, COPD Cardiac: Yes Deep Vein Thrombosis, Hypertension Neurological: No [employer] History: 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 Genitourinary: Yes Bladder Infection, Kidney Stones, UTI-Chronic Gastrointestinal: Yes Hemorrhoids Musculoskeletal: Yes Fibromyalgia Endocrine: Yes Diabetes, Non-Insulin dep HEENT: No Cancer: No Psychosocial: Yes Depression Integumentary: No Blood Disorders: Yes (Factor 5) Physical Exam Vital Signs Vital Signs - First Documented 12/15/19 18:44 Temp 36.1 Pulse 96 Resp 16 B/P (MAP) 121/80 (94) Pulse Ox 96 O2 Delivery Room Air Capillary Refill : Less Than 3 Seconds Height, Weight, BMI Height: 5'2.00" Weight: 180lbs. oz. 81.208666rx; 35.00 BMI Method:Estimated General Appearance: WD/WN, Mild Distress, Obese HEENT: Pharynx Normal Neck: Full Range of Motion, Normal Inspection, Non Tender, Supple Respiratory: Lungs Clear, Normal Breath Sounds, No Accessory Muscle Use, No Respiratory Distress, Other (tender to palpation left posterior lower ribs) Cardiovascular: Regular Rate, Rhythm, No Murmur, Normal Peripheral Pulses Gastrointestinal: Normal Bowel Sounds, No Pulsatile Mass, Soft; No Guarding, No Rebound; Tenderness (diffuse abdominal tenderness without guarding or rebound.) Rectal: Deferred Extremity: Normal Capillary Refill, Normal Range of Motion, No Pedal Edema Neurologic/Psychiatric: Alert, Oriented x3, No Motor/Sensory Deficits Skin: Normal Color, Warm/Dry Progress/Results/Core Measures Results/Orders Lab Results Laboratory Tests Test 12/15/19 18:30 Range/Units White Blood Count 11.8 H 4.3-11.0 10^3/uL Red Blood Count 4.92 4.35-5.85 10^6/uL Hemoglobin 14.1 11.5-16.0 G/DL Hematocrit 43 35-52 % Mean Corpuscular Volume 88 80-99 FL Mean Corpuscular Hemoglobin 29 25-34 PG Mean Corpuscular Hemoglobin Concent 33 32-36 G/DL Red Cell Distribution Width 13.6 10.0-14.5 % Platelet Count 438 H 130-400 10^3/uL Mean Platelet Volume 9.1 7.4-10.4 FL Neutrophils (%) (Auto) 53 42-75 % Lymphocytes (%) (Auto) 38 12-44 % Monocytes (%) (Auto) 6 0-12 % Eosinophils (%) (Auto) 2 0-10 % Basophils (%) (Auto) 0 0-10 % Neutrophils # (Auto) 6.2 1.8-7.8 X 10^3 Lymphocytes # (Auto) 4.5 H 1.0-4.0 X 10^3 Monocytes # (Auto) 0.8 0.0-1.0 X 10^3 Eosinophils # (Auto) 0.3 0.0-0.3 10^3/uL Basophils # (Auto) 0.1 0.0-0.1 10^3/uL Prothrombin Time 12.9 12.2-14.7 SEC INR Comment 0.9 0.8-1.4 Activated Partial Thromboplast Time 33 24-35 SEC Sodium Level 138 135-145 MMOL/L Potassium Level 3.7 3.6-5.0 MMOL/L Chloride Level 96 L 98-107 MMOL/L Carbon Dioxide Level 23 21-32 MMOL/L Anion Gap 19 H 5-14 MMOL/L Blood Urea Nitrogen 12 7-18 MG/DL Creatinine 0.86 0.60-1.30 MG/DL Estimat Glomerular Filtration Rate > 60 BUN/Creatinine Ratio 14 Glucose Level 145 H 70-105 MG/DL Calcium Level 9.6 8.5-10.1 MG/DL Corrected Calcium 9.3 8.5-10.1 MG/DL Magnesium Level 1.8 1.6-2.4 MG/DL Total Bilirubin 0.2 0.1-1.0 MG/DL Aspartate Amino Transf (AST/SGOT) 18 5-34 U/L Alanine Aminotransferase (ALT/SGPT) 18 0-55 U/L Alkaline Phosphatase 78 40-136 U/L Troponin I < 0.30 <0.30 NG/ML Pro-B-Type Natriuretic Peptide 45.9 <75.0 PG/ML Total Protein 7.8 6.4-8.2 GM/DL Albumin 4.4 3.2-4.5 GM/DL My Orders Orders - MAGALIE JOSÉ MD Cbc With Automated Diff (12/15/19 18:30) Magnesium (12/15/19 18:30) Ekg Tracing (12/15/19 18:30) Comprehensive Metabolic Panel (12/15/19 18:30) Protime With Inr (12/15/19 18:30) Partial Thromboplastin Time (12/15/19 18:30) O2 (12/15/19 18:30) Monitor-Rhythm Ecg Trace Only (12/15/19 18:30) Ed Iv/Invasive Line Start (12/15/19 18:30) Troponin I Fs (12/15/19 18:30) Probnp Fs (12/15/19 18:30) Ct Angio Chest W (12/15/19 18:30) Iohexol Injection (Omnipaque 350 Mg/Ml 1 (12/15/19 18:45) Received Contrast (Hold Metformin- Contr (12/15/19 18:45) Sodium Chloride Flush (Catheter Flush Sy (12/15/19 18:45) Ns (Ivpb) (Sodium Chloride 0.9% Ivpb Bag (12/15/19 18:45) Fentanyl Injection (Sublimaze Injection (12/15/19 18:51) Ns Iv 1000 Ml (Sodium Chloride 0.9%) (12/15/19 18:51) Rx-Oxycodone/Apap 5-325 Mg (Rx-Percocet (12/15/19 20:30) Medications Given in ED Current Medications Medications Dose Ordered Sig/Ren Route Start Time Stop Time Status Last Admin Dose Admin Iohexol 125 ml ONCE ONCE IV 12/15/19 18:45 12/15/19 18:46 DC 12/15/19 19:28 115 ML Sodium Chloride 10 ml NEEDED PRN IV 12/15/19 18:45 12/15/19 20:38 DC 12/15/19 19:28 10 ML Sodium Chloride 100 ml ONCE ONCE IV 12/15/19 18:45 12/15/19 18:46 DC 12/15/19 19:28 100 ML Vital Signs/I&O 12/15/19 12/15/19 18:44 20:37 Temp 36.1 Pulse 96 73 Resp 16 18 B/P (MAP) 121/80 (94) 104/64 Pulse Ox 96 94 O2 Delivery Room Air Blood Pressure Mean: 94 Progress Progress Note #1: Progress Note Check basic labs with CT scan of her chest provided the creatinine looks okay. She did have acute renal failure with a creatinine of 2.4. The month. This had resolved to normal when she was discharged last week. Electrocardiogram does not show any acute changes. Will try fentanyl for pain. Progress Note #2: Time: 19:48 Progress Note Labs appear stable without acute significant abnormality on chemistry. Her troponin was negative. Her white blood cell count was slightly elevated at 11.8. Pain improved somewhat with the treatment here in the ED. Awaiting CT scan results. Progress Note #3: Progress Note CT scan of the chest was negative for medicine, pneumonia, mass. There is nothing acute to explain her symptoms. Will treat with a few pain pills for her pleuritic-type chest pain. Counseled to follow up with clinic for continued concerns. Make sure that she continues with the Eliquis to treat for any potential small blood clot not seen on the CT. Initial ECG Impression Date: Dec 15, 2019 Initial ECG Impression Time: 18:41 Initial ECG Rate: 89 Initial ECG Rhythm: Normal Sinus Initial ECG Comparisson: Unchanged Comment Sinus rhythm with a heart rate of 89 bpm. Global T-wave flattening. OH interval is 154 ms. QT interval 350 ms with a QTc interval 426 ms. This appears similar to prior tracings. No acute ST elevation. Diagnostic Imaging Diagonstic Imaging: CT Plain Films/CT/US/NM/MRI: chest Comments NAME: [facility]ICKIE [facility] REC#: [id number] PT STATUS: REG ER : 1965 PHYSICIAN: MAGALIE JOSÉ MD ADMIT DATE: 12/15/19/ER FS Draft Date of Exam:12/15/19 CT ANGIO CHEST W PROCEDURE: CT angiography of the chest with contrast. TECHNIQUE: Multiple contiguous axial images were obtained through the chest after uneventful bolus administration of intravenous contrast. 3D reconstructed CTA MIP acquisitions were also performed. Auto Exposure Controls were utilized during the CT exam to meet ALARA standards for radiation dose reduction. INDICATION: Short of breath. Left lower posterior chest pain. History of pulmonary embolus The lungs are clear. There is no effusion or pneumothorax. There is no mediastinal mass or hemorrhage. There is no aortic aneurysm or dissection. There is no pulmonary embolus. IMPRESSION: No pulmonary embolus or other acute abnormality seen. Dictated on workstation # [id number] Dict: 12/15/192000 Trans: 12/15/192010 [facility] [id number] Interpreted by: NESSA YE MD Electronically signed by: Departure Impression Primary Impression: Pleuritic chest pain Additional Impression: Shortness of breath Disposition: HOME, SELF-CARE Condition: Stable Departure-Patient Inst. Decision time for Depature: 20:20 Referrals: [facility] (PCP) Primary Care Physician ADDY SMART APRN (Family) Primary Care Physician Patient Instructions: Pleuritic Chest Pain (DC), Shortness of Breath (Dyspnea) (DC) Add. Discharge Instructions: Continue on your Eliquis. Follow up with clinic for continued concerns. No sign of Pulmonary embolus or blood clot in lung on today's CT scan. All discharge instructions reviewed with patient and/or family. Voiced understanding. Scripts Oxycodone HCl/Acetaminophen (Oxycodone-Acetaminophen 5-325) 1 Each Tablet 1 EACH PO Q6H PRN for PAIN-SEVERE (8-10) MDD 6 for 3 Days, #10 TAB 0 Refills Prov: MAGALIE JOSÉ MD 12/15/19 MAGALIE JOSÉ MD Dec 15, 2019 19:07
[2019-12-15 19:10] LABS: ALANINE AMINOTRANSFERASE 18 U/L (0-55); ALBUMIN 4.4 GM/DL (3.2-4.5); ALKALINE PHOSPHATASE 78 U/L (40-136); BILIRUBIN,TOTAL 0.2 MG/DL (0.1-1.0); BUN/CREATININE RATIO 14; CALCIUM 9.6 MG/DL (8.5-10.1); CARBON DIOXIDE 23 MMOL/L (21-32); CHLORIDE 96 MMOL/L (98-107); CREATININE SERUM 0.86 MG/DL (0.60-1.30); GFR ESTIMATED > 60; GLUCOSE 145 MG/DL (70-105); MAGNESIUM 1.8 MG/DL (1.6-2.4); POTASSIUM 3.7 MMOL/L (3.6-5.0); SODIUM 138 MMOL/L (135-145); TOTAL PROTEIN 7.8 GM/DL (6.4-8.2)
--- NOTE | 2019-12-15 20:12 | Diagnostic Imaging Report ---
PROCEDURE: CT angiography of the chest with contrast. TECHNIQUE: Multiple contiguous axial images were obtained through the chest after uneventful bolus administration of intravenous contrast. 3D reconstructed CTA MIP acquisitions were also performed. Auto Exposure Controls were utilized during the CT exam to meet ALARA standards for radiation dose reduction. INDICATION: Short of breath. Left lower posterior chest pain. History of pulmonary embolus The lungs are clear. There is no effusion or pneumothorax. There is no mediastinal mass or hemorrhage. There is no aortic aneurysm or dissection. There is no pulmonary embolus. IMPRESSION: No pulmonary embolus or other acute abnormality seen. Dictated by: Dictated on workstation # [id number]
[2019-12-15] MEDS ORDERED: RX-OXYCODONE/APAP 5-325 MG #4 TAB PK PO PRN (20:30)
[2019-12-15] MEDS ORDERED: OXYC-471 PO (20:31)
[2019-12-15 20:37] VITALS: BP 104/64
--- OUTSIDE RECORDS SUMMARY | 2019-12-15 22:32 | XMS REPORT | Continuity of Care Document ---
Author Organization Unknown Address Unknown Phone Unavailable Allergies Active Description Code Type Severity Reaction Onset Reported/Identified Relationship to Patient Clinical Status Yes ADHESIVE TAPE MOD ERATE MODERATE Yes HYDROCODONE-ACETAMINOPHEN UNKNOWN UNKNOWN Yes LATEX UNKNOWN UNKNOWN Yes MORPHINE SEVERE SEVERE Yes PENICILLIN G POTASSIUM UNKNOWN UNKNOWN Yes ZITHROMAX Z-ROCHELLE S EVERE SEVERE Yes ADHESIVE TAPE 00958 Chemical Low Rash~Other 12/12/2015 12/12/2015 Yes AZITHROMYCIN [...] PLASTIC TAPE Mild N/A 12/05/2019 Yes hydrocodone [id number] Drug Aller gy Unknown N/A 12/05/2019 Yes latex [id number] Drug Allergy Unknown N/A 12/05/2019 Yes morphine [id number] Drug Allergy Unknown N/A 12/05/2019 Medications Medication [...] Oral 25 4 TIMES DAILY PRN NYSTATIN 211145 UNIT/GM EX CREA 12/13/2015 Topical 2 TIMES [...] IN AEPB 12/13/2015 Inhalation 1 DAILY NYSTATIN 321129 UNIT/GM EX CREA 12/13/2015 Topical 2 TIMES [...] ALBUTEROL SVN 2.5MG/3CC LIQ 2.5 MG (PROVENTIL KSAHIF 2.5MG/3CC) MG 02/14/2019 02/24/2019 PRN QID Problems [...] HALLEY COHN STEVE T Ot Z79. 01 LONGTERM (CURRENT) USE OF ANTICOAGULANT 09/18/2018 HALLEY COHN [...] 09/20/2018 HALLEY COHNBEAED T Ot Z79. 01 EMERGENCY ROOM ORDERLY (CURRENT) USE OF ANTICOAGULANT 09/20/2018 HALLEY COHN [...] SUPERFIC INCISIONAL SURGICAL SITE, I NIT 02/14/2019 Manish Iamelinorenrike W 552.21 INCISIONAL HERNIA WITH OBSTRUCTION 02/14/2019 Prateek Hammond W 996.69 INFECTION AND INFLAMMATORY REACTION DUE TO OTHER INTERNAL PROSTHETIC DEVICE, IMPLANT, AND GRAFT 02/14/2019 Prateek Hammond W I10 ESSENTIAL (PRIMARY) HYPERTENSION 02/14/2019 Prateek Hammond K43.0 INCISIONAL HERNIA WITH OBSTRUCTION, WITHOUT GANGRENE 02/14/2019 Prateek Hammond W K43.2 INCISIONAL HERNIA WITHOUT OBSTRUCTION OR GANGRENE 02/14/2019 Prateek Hammond K58.9 IRRITABLE BOWEL SYNDROME WITHOUT DIARRHEA 02/14/2019 Prateek Hammond T81.41XA INFCT FOL A PROC, SUPERFIC INCISIONAL SURGICAL SITE, INIT 02/14/2019 Manish Prateek Conklin T85.79XA INFECT/INFLM REACTION DUE TO OTH INT PROSTH DEV/GRFT, INIT 12/07/2019 DARION VERAS DO Ot B37.3 CANDIDIASIS OF VULVA AND VAGINA 12/07/2019 RYAN VERAS DOI Ot 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 12/07/2019 RYAN VERAS DOI Ot E11.9 TYPE 2 DIABETES MELLITUS WITHOUT COMPLIC 12/07/2019 RYAN VERAS DOI Ot E66.9 OBESITY, UNSPECIFIED 12/07/2019 RITO COHN DARION Ot E87.6 HYPOKALEMIA 12/07/2019 DARION VERAS DO Ot F32.9 MAJOR DEPRESSIVE DISORDER, SINGLE EPISOD 12/07/2019 RITO COHN DARION Ot I10 ESSENTIAL (PRIMARY) HYPERTENSION 12/07/2019 RITO COHN DARION Ot J44.9 CHRONIC OBSTRUCTIVE PULMONARY DISEASE, U 12/07/2019 RITO COHN DARION Ot K59.00 CONSTIPATION, UNSPECIFIED 12/07/2019 RITO COHN DARION Ot M79.7 FIBROMYALGIA 12/07/2019 RITO COHN DARION Ot N17.9 ACUTE KIDNEY FAILURE, UNSPECIFIED 12/07/2019 RITO COHN DARION Ot N39.0 URINARY TRACT INFECTION, SITE NOT SPECIF 12/07/2019 RYAN VERAS DOI Ot N75.0 CYST OF BARTHOLIN'S GLAND 12/07/2019 RYAN VERAS DOI Ot N93.8 OTHER SPECIFIED ABNORMAL UTERINE AND VAG 12/07/2019 RYAN VERAS DOI Ot R19.00 INTRA-ABD AND PELVIC SWELLING, MASS AND 12/07/2019 RYAN VERAS DOI Ot Z68.37 BODY MASS INDEX (BMI) 37.0-37.9, ADULT 12/07/2019 RITO COHN DARION Ot Z86.71 1 PERSONAL HISTORY OF PULMONARY EMBOLISM 12/07/2019 RITO COHN, DARION Ot Z86.71 8 PERSONAL HISTORY OF OTHER VENOUS THROMBO 12/07/2019 RITO COHN DARION Ot Z87.44 2 PERSONAL HISTORY OF URINARY CALCULI 12/07/2019 RITO COHN DARION Ot Z87.89 1 PERSONAL HISTORY OF NICOTINE DEPENDENCE 12/12/2019 O'DELL, ADDY K [employer] Ot N30.01 ACUTE CYSTITIS WITH HEMATURIA 12/12/2019 O'DELL, ADDY K [employer] Ot Z86.19 PERSONAL HISTORY OF OTHER INFECTIOUS AND 12/13/2019 O'DELL, ADDY K [employer] Ot N30.01 ACUTE CYSTITIS WITH HEMATURIA 12/13/2019 O'DELL, ADDY K [employer] Ot Z86.19 PERSONAL HISTORY OF OTHER INFECTIOUS AND Procedures There is no data. Results Test [...] mg/dL 0.2 WBC UA 0-3 /HPF 0-3 [id number] Negative Negative PROTIME-INR - 12/14/15 06:17 INR 1.34 INR PROTHROMBIN TIME 17.2 sec. 11.8-14.8 HEMOGLOBIN A1C - 12/14/15 06:17 HEMOGLOBIN A1C 5.8 % 4.0-6.0 SUREPATH PAP RFX HPV mRNA E6/E7 - 00:00 CLINICAL INFORMATION: NRG LMP: NRG PREV. PAP: NRG PREV. BX: NRG SOURCE: Cervix NRG STATEMENT OF ADEQUACY: NRG INTERPRETATION/RESULT: NRG RECOVERY MANAGER: NRG COMMENT NRG A1C - 12/06/18 15:58 [...] - 12/31/18 12:13 Surg Path Sent to [facility] Pathology Comprehensive Metabolic Panel - 01/27/19 12:12 [...] Negative Urine-Blood Negative Negative Urine-Color Yellow Colorless-[place] ow Urine-Epithelial Cells 0-5/HPF Urine-Glucose Negative Negative Urine-Ketones Negative Negative Urine-Leukocytes Negative Negative Urine-Nitrite Negative Negative Urine-Other Urine Saved if Culture Need ed (48hrs from time of collection) Urine-pH 8.5 5-8.5 Urine-Protein Negative Negative Urine-RBC Negative Urine-Specific [place] 1.015 1.000-1 .030 Urine-WBC Negative Urobilinogen 0.2 E.U./dL 0.2-1.0 Surgical Pathology - 02/14/19 13:12 Surg Path Sent to [facility] Pathology CMP - 03/17/19 09:20 GLUCOSE 99 mg/dL 65-99 UREA NITROGEN (BUN) 9 mg/dL 7-25 CREATININE 0.73 mg/dL 0.50-1.05 eGFR NON-AFR. FILIPINO 93 mL/min/1.73m2 > OR = 60 eGFR [...] NRG STATEMENT OF ADEQUACY: NRG INTERPRETATION/RESULT: NRG RECOVERY MANAGER: NRG COMMENT NRG CMP - 11/15/19 11:43 GLUCOSE 83 mg/dL 65-99 UREA NITROGEN (BUN) 10 mg/dL 7-25 CREATININE 0.58 mg/dL 0.50-1.05 eGFR NON-AFR. FILIPINO 104 mL/min/1.73m2 > OR = 60 eGFR [...] culture YES NRG Bacterial urine culture - 12/05/19 14:10 Bacterial urine culture NG NRG Blood lactic acid measurement (moles/vol ume) - 12/05/19 14:20 Blood lactic acid measurement (moles/volume) 0.94 mmol/L 0.50-2.00 Bacterial blood culture - 12/05/19 14:20 Bacterial blood culture NG NRG Bacterial blood culture - 12/05/19 15:05 Bacterial blood culture NG NRG Complete blood count (CBC) with automate d white blood cell (WBC) differential - 12/06/19 06:15 Blood leukocytes automated count (number/volume) 7.8 10*3/uL 4.3-11.0 Blood erythrocytes automated count (number/volume) 3.92 10*6/uL 4.35-5.85 Venous blood hemoglobin measurement (mass/volume) 11.3 g/dL 11.5-16.0 Blood hematocrit (volume fraction) 36 % 35-52 Automated erythrocyte mean corpuscular volume 92 [ foz_us] 80-99 Automated erythrocyte mean corpuscular h emoglobin (mass per erythrocyte) 29 pg 25-34 Automated erythrocyte mean corpuscular h emoglobin concentration measurement (mass/volume) 31 g/dL 32-36 Automated erythrocyte distribution width ratio 14. 5 % 10.0- 14.5 Automated blood platelet count (count/volume) 322 10*3/uL 130-400 Automated blood platelet mean volume measurement 9.1 [foz_us] 7.4-10.4 Automated blood neutrophils/100 leukocytes 49 % 42-75 Automated blood lymphocytes/100 leukocytes 42 % 12-44 Blood monocytes/100 leukocytes 7 % 0-12 Automated blood eosinophils/100 leukocytes 2 % 0-10 Automated blood basophils/100 leukocytes 0 % 0-10 Blood neutrophils automated count (number/volume) 3.8 10*3 1.8-7.8 Blood lymphocytes automated count (number/volume) 3.2 10*3 1.0-4.0 Blood monocytes automated count (number/volume) 0. 5 10*3 0.0-1.0 Automated eosinophil count 0.2 10*3/uL 0 .0-0.3 Automated blood basophil count (count/volume) 0.0 10*3/uL 0.0-0.1 Comprehensive metabolic panel - 12/06/19 06:15 Serum or plasma sodium measurement (moles/volume) 139 mmol/L 135-145 Serum or plasma potassium measurement (moles/volume) 3.5 mmol/L 3.6-5.0 Serum or plasma chloride measurement (moles/volume) 109 mmol/L 98-107 Carbon dioxide 21 mmol/L 21-32 Serum or plasma anion gap determination (moles/volume) 9 mmol/L 5-14 Serum or plasma urea nitrogen measurement (mass/volume ) 21 mg/dL 7-18 Serum or plasma creatinine measurement (mass/volume) 0.95 mg/dL 0.60-1.30 Serum or plasma urea nitrogen/creatinine mass ratio 22 NRG Serum or plasma creatinine measurement w ith calculation of estimated glomerular filtration rate > NRG Serum or plasma glucose measurement (mass/volume) 117 mg/dL 70-105 Serum or plasma calcium measurement (mass/volume) 7.9 mg/dL 8.5-10.1 Serum or plasma total bilirubin measurement (mass/volu me) 0.3 mg/dL 0.1-1.0 Serum or plasma alkaline phosphatase aury surement (enzymatic activity/volume) 58 U/L 40-136 Serum or plasma aspartate aminotransfera se measurement (enzymatic activity/volume) 12 U/L 5-34 Serum or plasma alanine aminotransferase measurement (enzymatic activity/volume) 12 U/L 0-55 Serum or plasma protein measurement (mass/volume) 6.0 g/dL 6.4-8.2 Serum or plasma albumin measurement (mass/volume) 3.3 g/dL 3.2-4.5 CALCIUM CORRECTED 8.5 mg/dL 8.5-10.1 Comprehensive metabolic panel - 12/07/19 04:19 Serum or plasma sodium measurement (moles/volume) 141 mmol/L 135-145 Serum or plasma potassium measurement (moles/volume) 3.7 mmol/L 3.6-5.0 Serum or plasma chloride measurement (moles/volume) 107 mmol/L 98-107 Carbon dioxide 25 mmol/L -32 Serum or plasma anion gap determination (moles/volume) 9 mmol/L 5-14 Serum or plasma urea nitrogen measurement (mass/volume ) 8 mg/dL 7-18 Serum or plasma creatinine measurement (mass/volume) 0.65 mg/dL 0.60-1.30 Serum or plasma urea nitrogen/creatinine mass ratio 12 NRG Serum or plasma creatinine measurement w ith calculation of estimated glomerular filtration rate > NRG Serum or plasma glucose measurement (mass/volume) 108 mg/dL 70-105 Serum or plasma calcium measurement (mass/volume) 8.5 mg/dL 8.5-10.1 Serum or plasma total bilirubin measurement (mass/volu me) 0.2 mg/dL 0.1-1.0 Serum or plasma alkaline phosphatase aury surement (enzymatic activity/volume) 60 U/L 40-136 Serum or plasma aspartate aminotransfera se measurement (enzymatic activity/volume) 18 U/L 5-34 Serum or plasma alanine aminotransferase measurement (enzymatic activity/volume) 15 U/L 0-55 Serum or plasma protein measurement (mass/volume) 6.0 g/dL 6.4-8.2 Serum or plasma albumin measurement (mass/volume) 3.3 g/dL 3.2-4.5 CALCIUM CORRECTED 9.1 mg/dL 8.5-10.1 Complete blood count (CBC) with automate d white blood cell (WBC) differential - 12/07/19 04:19 Blood leukocytes automated count (number/volume) 6.1 10*3/uL 4.3-11.0 Blood erythrocytes automated count (number/volume) 3.80 10*6/uL 4.35-5.85 Venous blood hemoglobin measurement (mass/volume) 10.9 g/dL 11.5-16.0 Blood hematocrit (volume fraction) 35 % 35-52 Automated erythrocyte mean corpuscular volume 92 [ foz_us] 80-99 Automated erythrocyte mean corpuscular h emoglobin (mass per erythrocyte) 29 pg 25-34 Automated erythrocyte mean corpuscular h emoglobin concentration measurement (mass/volume) 31 g/dL 32-36 Automated erythrocyte distribution width ratio 14. 0 % 10.0- 14.5 Automated blood platelet count (count/volume) 297 10*3/uL 130-400 Automated blood platelet mean volume measurement 9.4 [foz_us] 7.4-10.4 Automated blood neutrophils/100 leukocytes 44 % 42-75 Automated blood lymphocytes/100 leukocytes 44 % 12-44 Blood monocytes/100 leukocytes 7 % 0-12 Automated blood eosinophils/100 leukocytes 4 % 0-10 Automated blood basophils/100 leukocytes 0 % 0-10 Blood neutrophils automated count (number/volume) 2.7 10*3 1.8-7.8 Blood lymphocytes automated count (number/volume) 2.7 10*3 1.0-4.0 Blood monocytes automated count (number/volume) 0. 5 10*3 0.0-1.0 Automated eosinophil count 0.3 10*3/uL 0 .0-0.3 Automated blood basophil count (count/volume) 0.0 10*3/uL 0.0-0.1 LITHIUM LEVEL - 12/07/19 04:19 Blood lithium measurement (moles/volume) 0.6 % 0.6-1.2 Complete blood count (CBC) with automate d white blood cell (WBC) differential - 12/08/19 15:12 Blood leukocytes automated count (number/volume) 9.2 10*3/uL 4.3-11.0 Blood erythrocytes automated count (number/volume) 4.45 10*6/uL 4.35-5.85 Venous blood hemoglobin measurement (mass/volume) 12.7 g/dL 11.5-16.0 Blood hematocrit (volume fraction) 40 % 35-52 Automated erythrocyte mean corpuscular volume 90 [ foz_us] 80-99 Automated erythrocyte mean corpuscular h emoglobin (mass per erythrocyte) 29 pg 25-34 Automated erythrocyte mean corpuscular h emoglobin concentration measurement (mass/volume) 32 g/dL 32-36 Automated erythrocyte distribution width ratio 13. 6 % 10.0- 14.5 Automated blood platelet count (count/volume) 383 10*3/uL 130-400 Automated blood platelet mean volume measurement 8.8 [foz_us] 7.4-10.4 Automated blood neutrophils/100 leukocytes 57 % 42-75 Automated blood lymphocytes/100 leukocytes 32 % 12-44 Blood monocytes/100 leukocytes 7 % 0-12 Automated blood eosinophils/100 leukocytes 4 % 0-10 Automated blood basophils/100 leukocytes 0 % 0-10 Blood neutrophils automated count (number/volume) 5.3 10*3 1.8-7.8 Blood lymphocytes automated count (number/volume) 2.9 10*3 1.0-4.0 Blood monocytes automated count (number/volume) 0. 6 10*3 0.0-1.0 Automated eosinophil count 0.4 10*3/uL 0 .0-0.3 Automated blood basophil count (count/volume) 0.0 10*3/uL 0.0-0.1 Comprehensive metabolic panel - 12/08/19 15:12 Serum or plasma sodium measurement (moles/volume) 142 mmol/L 135-145 Serum or plasma potassium measurement (moles/volume) 4.0 mmol/L 3.6-5.0 Serum or plasma chloride measurement (moles/volume) 103 mmol/L 98-107 Carbon dioxide 27 mmol/L 21-32 Serum or plasma anion gap determination (moles/volume) 12 mmol/L 5-14 Serum or plasma urea nitrogen measurement (mass/volume ) 9 mg/dL 7-18 Serum or plasma creatinine measurement (mass/volume) 0.59 mg/dL 0.60-1.30 Serum or plasma urea nitrogen/creatinine mass ratio 15 NRG Serum or plasma creatinine measurement w ith calculation of estimated glomerular filtration rate > NRG Serum or plasma glucose measurement (mass/volume) 112 mg/dL 70-105 Serum or plasma calcium measurement (mass/volume) 9.6 mg/dL 8.5-10.1 Serum or plasma total bilirubin measurement (mass/volu me) 0.2 mg/dL 0.1-1.0 Serum or plasma alkaline phosphatase aury surement (enzymatic activity/volume) 77 U/L 40-136 Serum or plasma aspartate aminotransfera se measurement (enzymatic activity/volume) 19 U/L 5-34 Serum or plasma alanine aminotransferase measurement (enzymatic activity/volume) 11 U/L 0-55 Serum or plasma protein measurement (mass/volume) 7.3 g/dL 6.4-8.2 Serum or plasma albumin measurement (mass/volume) 4.0 g/dL 3.2-4.5 CALCIUM CORRECTED 9.6 mg/dL 8.5-10.1 Blood lactic acid measurement (moles/vol ume) - 12/08/19 15:12 Blood lactic acid measurement (moles/volume) 2.17 mmol/L 0.50-2.00 Complete blood count (CBC) with automate d white blood cell (WBC) differential - 12/15/19 18:30 Blood leukocytes automated count (number/volume) 11.8 10*3/uL 4.3-11.0 Blood erythrocytes automated count (number/volume) 4.92 10*6/uL 4.35-5.85 Venous blood hemoglobin measurement (mass/volume) 14.1 g/dL 11.5-16.0 Blood hematocrit (volume fraction) 43 % 35-52 Automated erythrocyte mean corpuscular volume 88 [ foz_us] 80-99 Automated erythrocyte mean corpuscular h emoglobin (mass per erythrocyte) 29 pg 25-34 Automated erythrocyte mean corpuscular h emoglobin concentration measurement (mass/volume) 33 g/dL 32-36 Automated erythrocyte distribution width ratio 13. 6 % 10.0- 14.5 Automated blood platelet count (count/volume) 438 10*3/uL 130-400 Automated blood platelet mean volume measurement 9.1 [foz_us] 7.4-10.4 Automated blood neutrophils/100 leukocytes 53 % 42-75 Automated blood lymphocytes/100 leukocytes 38 % 12-44 Blood monocytes/100 leukocytes 6 % 0-12 Automated blood eosinophils/100 leukocytes 2 % 0-10 Automated blood basophils/100 leukocytes 0 % 0-10 Blood neutrophils automated count (number/volume) 6.2 10*3 1.8-7.8 Blood lymphocytes automated count (number/volume) 4.5 10*3 1.0-4.0 Blood monocytes automated count (number/volume) 0. 8 10*3 0.0-1.0 Automated eosinophil count 0.3 10*3/uL 0 .0-0.3 Automated blood basophil count (count/volume) 0.1 10*3/uL 0.0-0.1 PT panel in platelet poor plasma by coag ulation assay - 12/15/19 18:30 Prothrombin time (PT) in platelet poor plasma by coagu lation assay 12.9 s 12.2-14.7 INR in platelet poor plasma or blood by coagulation as say 0.9 0.8-1.4 Activated partial thromboplastin time (a PTT) in platelet poor plasma bycoagulation assay - 12/15/19 18:30 Activated partial thromboplastin time (a PTT) in platelet poor plasma bycoagulation assay 33 s 24-35 TROPONIN I FS - 12/15/19 18:30 TROPONIN I FS < 0.30 <0.30 Comprehensive metabolic panel - 12/15/19 18:30 Serum or plasma sodium measurement (moles/volume) 138 mmol/L 135-145 Serum or plasma potassium measurement (moles/volume) 3.7 mmol/L 3.6-5.0 Serum or plasma chloride measurement (moles/volume) 96 mmol/L 98-107 Carbon dioxide 23 mmol/L 21-32 Serum or plasma anion gap determination (moles/volume) 19 mmol/L 5-14 Serum or plasma urea nitrogen measurement (mass/volume ) 12 mg/dL 7-18 Serum or plasma creatinine measurement (mass/volume) 0.86 mg/dL 0.60-1.30 Serum or plasma urea nitrogen/creatinine mass ratio 14 NRG Serum or plasma creatinine measurement w ith calculation of estimated glomerular filtration rate > NRG Serum or plasma glucose measurement (mass/volume) 145 mg/dL 70-105 Serum or plasma calcium measurement (mass/volume) 9.6 mg/dL 8.5-10.1 Serum or plasma total bilirubin measurement (mass/volu me) 0.2 mg/dL 0.1-1.0 Serum or plasma alkaline phosphatase aury surement (enzymatic activity/volume) 78 U/L 40-136 Serum or plasma aspartate aminotransfera se measurement (enzymatic activity/volume) 18 U/L 5-34 Serum or plasma alanine aminotransferase measurement (enzymatic activity/volume) 18 U/L 0-55 Serum or plasma protein measurement (mass/volume) 7.8 g/dL 6.4-8.2 Serum or plasma albumin measurement (mass/volume) 4.4 g/dL 3.2-4.5 CALCIUM CORRECTED 9.3 mg/dL 8.5-10.1 Magnesium - 12/15/19 18:30 Magnesium 1.8 mg/dL 1.6-2.4 PROBNP FS - 12/15/19 18:30 PROBNP FS 45.9 pg/mL <75.0 Encounters ACCT No. Visit Date/Time Discharge Status Pt. Type Provider Facility Loc./Unit Complaint [id number] 12/13/2019 08:30:00 ACT Outpatient [facility] [id number] 11/15/2019 10:15:00 Document Registration [id number] 11/07/2019 12:30:00 Document Registration [id number] 10/07/2019 15:30:00 Document Registration [id number] 09/13/2019 13:45:00 Document Registration [id number] 09/12/2019 14:40:00 Document Registration [id number] 07/27/2019 08:00:00 Document Registration [id number] 03/17/2019 09:00:00 Document Registration [id number] 12/06/2018 15:15:00 Document Registration [id number] 10/27/2018 10:45:00 Document Registration [id number] 12/12/2015 22:15:00 17:51:00 DIS Inpatient JOSE MORLEY [facility] V[place] [id number] 12/13/2015 00:41:09 Document Registration [id number] 12/08/2019 14:51:00 23:59:59 CLS Outpatient ADDY SMART APRN [facility] LAB FS ACUTE CYSTITIS WITH HEM ATURIA [id number] 12/05/2019 15:55:00 12:50:00 DIS Inpatient DARION VERAS DO, [facility] 4TH ACUTE KIDNEY INJURY,ACU TE UTI [id number] 12/30/2018 22:42:00 05:32:00 DIS Emergency MAGALIE JOSÉ MD [facility] ER FS ABD AND BACK PAIN [id number] 09/18/2018 21:59:00 22:48:00 DIS Emergency STEVE ROWLEY DO [facility] ER FS RIGHT LEG PAIN [id number] 12/15/2019 18:48:00 Document Registration [id number] 02/14/2019 00:00:00 02/14/2019 15:06: 00 DIS Outpatient Prateek Hammond [id number] 02/08/2019 12:27:00 02/08/2019 23:59: 00 DIS Outpatient Prateek Hammond [id number] 01/27/2019 11:34:00 01/27/2019 15:00: 00 DIS Outpatient ELADIO PERRY APRN [id number] 12/31/2018 06:06:00 12/31/2018 16:30: 00 DIS Outpatient Prateek Hammond [facility] MED-SURG [id number] 12/31/2018 07:31:06 Document Registration
== END 2019-12-15 20:38 | disposition home or self-care (01) ==
LOC: EDUNIT# 18:14 → ER FS 18:15
DX: R07.1 Chest pain on breathing (principal); R06.02 Shortness of breath; E11.9 Type 2 diabetes mellitus without complications; J44.9 Chronic obstructive pulmonary disease, unspecified; F32.9 Major depressive disorder, single episode, unspecified; Z86.711 Personal history of pulmonary embolism; Z86.718 Personal history of other venous thrombosis and embolism; Z88.5 Allergy status to narcotic agent; Z91.040 Latex allergy status; Z88.0 Allergy status to penicillin; Z79.01 Long term (current) use of anticoagulants; Z79.51 Long term (current) use of inhaled steroids; Z87.891 Personal history of nicotine dependence
CPT/HCPCS: 36415; 71275; 80053; 83735; 83880; 84484; 85025; 85610; 85730

== ENCOUNTER 2019-12-20 15:36 | Emergency (ER) | payer OTHER ==
[~2019-12-20] VITALS: Ht 154 cm; Wt 75.0 kg
[~2019-12-20 15:36] MED LIST changes: +OXYC-471 PO
[2019-12-20] MEDS ORDERED: NS IV 500 ML 500 ML IV ONE (15:47)
--- NOTE | 2019-12-20 15:56 | ED GU-Female ---
General Chief Complaint: - Urinary Stated Complaint: TROUBLE URINATING,BLOATING Source: patient Exam Limitations: no limitations History of Present Illness Date Seen by Provider: Dec 20, 2019 Time Seen by Provider: 15:41 Initial Comments Patient present to ER by private conveyance with chief complaint for the past 2 weeks she's had burning urination but has gotten worse the last day or so and she is now having pain back in her back again. She was admitted for 2 days and discharged on December 06 from [place] via [facility], [place] for pyelonephritis and acute kidney injury. Her creatinine had been week of 2.4 and back down to 0.8 by the time she discharged. She is on lithium for bipolar disorder. She is on Eliquis for history of clots related to factor V Leiden disorder. She denies shortness of breath or chest pain. She did resume that about 5 or 6 days ago. She is back on all of her medications and follows with nurse practitioner Pietro at [facility]. She was discharged on Bactrim DS and had her antibiotics changed on the to Macrobid by her primary practitioner. She's not having any fevers or chills but she called her primary care doctor's office to be seen today and they told her to come to the ER because they were afraid she might be septic. She denies nausea vomiting or discharge. Both her flanks hurt. She has had kidney stones before. She does not see a barber apprentice but she was referred to a urologist and she has not made that appointment yet. She has a headache and has not taken anything for it but would like some Tylenol. Urine culture by catheterization from 12/04/24 in all result no growth. Blood cultures no growth. [place] level from 12/07/19 was 0.6, within normal limits. Transvaginal ultrasound from 12/06/19 reviewed demonstrated a cystic mass in the right pelvis as seen on CT but could not be identified. 2.9 cm compared to 2.0 cm from 1 year before. Follow-up CT abdomen pelvis with IV contrast was recommended if further evaluation was desired. Coronary discharge note the certified financial planner recommend she discontinue her hormone replacement therapy and she has not resumed that. Allergies and Home Medications Allergies Coded Allergies: hydrocodone (Verified Allergy, Unknown, 12/05/19) latex (Verified Allergy, Unknown, 12/05/19) morphine (Verified Allergy, Unknown, 12/05/19) Uncoded Allergies: PENICILLIN (Allergy, Intermediate, 12/05/19) PLASTIC TAPE (Allergy, Mild, 12/05/19) Home Medications Albuterol Sulfate 1 Puff Puff, 2 PUFF PO Q4H PRN for SHORTNESS OF BREATH, ( Reported) Amitriptyline HCl 25 Mg Tablet, 25 MG PO HS, (Reported) Apixaban 5 Mg Tablet, 5 MG PO BID, (Reported) Bupropion HCl 100 Mg Tablet, 100 MG PO BID, (Reported) Cariprazine Hydrochloride 3 Mg Capsule, 3 MG PO DAILY, (Reported) Cyclobenzaprine HCl 10 Mg Tablet, 10 MG PO BID, (Reported) Diazepam 5 Mg Tablet, 5 MG PO HS, (Reported) Fluconazole 150 Mg Tablet, 150 MG PO DAILY Take this in 72 hours Prescribed by: OZZY OSPINA on 12/06/19 1414 Gabapentin 300 Mg Capsule, 300 MG PO DAILY, (Reported) Gabapentin 300 Mg Capsule, 600 MG PO HS, (Reported) TAKES 2 (300NG) TABS Ipratropium/Albuterol Sulfate 3 Ml Ampul.neb, 1 VIAL NEB Q6H PRN for SHORTNESS OF BREATH, (Reported) [place] Carbonate 300 Mg Capsule, 600 MG PO HS, (Reported) TAKES 2 (300MG) CAPS AT BEDTIME [place] Carbonate 300 Mg Capsule, 300 MG PO DAILY, (Reported) Mometasone Furoate 110 Mcg Aer.pow.ba, 2 PUFF IH BID PRN for SHORTNESS OF BREATH, (Reported) Montelukast Sodium 10 Mg Tablet, 10 MG PO HS, (Reported) Winfred-3/Dha/Epa/Fish Oil 1 Each Capsule, 1 EACH PO DAILY, (Reported) Oxycodone HCl/Acetaminophen 1 Each Tablet, 1 EACH PO Q6H PRN for PAIN-SEVERE (8- 10) Prescribed by: MAGALIE JOSÉ on 12/15/192032 Potassium Chloride 10 Meq Tab.er.prt, 10 MEQ PO BID WITH MEALS, (Reported) Pregabalin 150 Mg Capsule, 150 MG PO BID, (Reported) LAST FILLED 09-16-2019 #60 Trazodone HCl 100 Mg Tablet, 100-200 MG PO HS PRN for SLEEP, (Reported) TAKES 1 TO 2 (100MG) TABS AT BEDTIME Patient Home Medication List Home Medication List Reviewed: Yes Review of Systems Review of Systems Constitutional: No chills, No fever; malaise EENTM: No ear discharge, No ear pain Respiratory: No cough, No phlegm, No short of breath Cardiovascular: No chest pain, No edema Gastrointestinal: No abdominal pain, No constipation, No diarrhea, No nausea, No vomiting Genitourinary: burning; denies discharge; dysuria, flank pain (yudy) : No Musculoskeletal: No joint pain, No joint swelling All Other Systemes Reviewed Negative Unless Noted: Yes Past Zyogfij-Ruffpq-Pczwky Hx Patient Social History Alcohol Use: Denies Use Recreational Drug Use: No Smoking Status: Former Smoker Type Used: Cigarettes Former Smoker, Quit: Jul 06, 1993 2nd Hand Smoke Exposure: No Recent Foreign Travel: No Contact w/Someone Who Travel: No Recent Hopitalizations: No Physical Abuse: No Sexual Abuse: No Mistreated: No Fear: No Immunizations Up To Date Date of Influenza Vaccine: Apr 05, 2018 Seasonal Allergies Seasonal Allergies: No Past Medical History Surgeries: Yes (hemorrhoidecotomy, bladder pin-up, hernia repairs with mesh) Appendectomy, Gallbladder, 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 Respiratory: Yes Asthma, Pulmonary Embolism, COPD Cardiac: Yes Deep Vein Thrombosis, Hypertension 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 oz. 81.351929im; 35.00 BMI Method:Estimated General Appearance: WD/WN, mild distress HEENT: PERRL/EOMI, pharynx normal Neck: full range of motion, normal inspection Cardiovascular: normal peripheral pulses, regular rate, rhythm Respiratory: chest non-tender, lungs clear, normal breath sounds, no respiratory distress, no accessory muscle use Gastrointestinal: normal bowel sounds, non tender, soft Back: normal inspection, no vertebral tenderness, CVA tenderness (R), CVA tenderness (L) (moderate tenderness to percussion bilaterally) Extremities: normal range of motion, non-tender, normal capillary refill Neurologic/Psychiatric: alert, normal mood/affect, oriented x 3 Skin: normal color, warm/dry Progress/Results/Core Measures Suspected Sepsis SIRS Temperature: Pulse: Respiratory Rate: Laboratory Tests 12/20/19 15:54: White Blood Count 10.6 Blood Pressure / Mean: Laboratory Tests 12/20/19 15:54: Creatinine 0.73, Platelet Count 422H, Total Bilirubin 0.3 Results/Orders Lab Results Laboratory Tests Test 12/20/19 15:40 12/20/19 15:54 Range/Units Urine Color YELLOW Urine Clarity CLEAR Urine pH 7.0 5-9 Urine Specific [place] 1.015 L 1.016-1.022 Urine Protein NEGATIVE NEGATIVE Urine Glucose (UA) NEGATIVE NEGATIVE Urine Ketones NEGATIVE NEGATIVE Urine Nitrite NEGATIVE NEGATIVE Urine Bilirubin NEGATIVE NEGATIVE Urine Urobilinogen 0.2 < = 1.0 MG/DL Urine Leukocyte Esterase 2+ H NEGATIVE Urine RBC (Auto) NEGATIVE NEGATIVE Urine RBC NONE /HPF Urine WBC 5-10 H /HPF Urine Squamous Epithelial Cells 0-2 /HPF Urine Renal Epithelial Cells 0-2 /HPF Urine Crystals NONE /LPF Urine Bacteria TRACE /HPF Urine Casts NONE /LPF Urine Mucus NEGATIVE /LPF Urine Culture Indicated YES White Blood Count 10.6 4.3-11.0 10^3/uL Red Blood Count 4.87 4.35-5.85 10^6/uL Hemoglobin 14.0 11.5-16.0 G/DL Hematocrit 44 35-52 % Mean Corpuscular Volume 90 80-99 FL Mean Corpuscular Hemoglobin 29 25-34 PG Mean Corpuscular Hemoglobin Concent 32 32-36 G/DL Red Cell Distribution Width 13.7 10.0-14.5 % Platelet Count 422 H 130-400 10^3/uL Mean Platelet Volume 8.8 7.4-10.4 FL Neutrophils (%) (Auto) 55 42-75 % Lymphocytes (%) (Auto) 36 12-44 % Monocytes (%) (Auto) 7 0-12 % Eosinophils (%) (Auto) 3 0-10 % Basophils (%) (Auto) 0 0-10 % Neutrophils # (Auto) 5.8 1.8-7.8 X 10^3 Lymphocytes # (Auto) 3.8 1.0-4.0 X 10^3 Monocytes # (Auto) 0.7 0.0-1.0 X 10^3 Eosinophils # (Auto) 0.3 0.0-0.3 10^3/uL Basophils # (Auto) 0.0 0.0-0.1 10^3/uL Sodium Level 140 135-145 MMOL/L Potassium Level 4.0 3.6-5.0 MMOL/L Chloride Level 100 98-107 MMOL/L Carbon Dioxide Level 25 21-32 MMOL/L Anion Gap 15 H 5-14 MMOL/L Blood Urea Nitrogen 9 7-18 MG/DL Creatinine 0.73 0.60-1.30 MG/DL Estimat Glomerular Filtration Rate > 60 BUN/Creatinine Ratio 12 Glucose Level 110 H 70-105 MG/DL Calcium Level 10.0 8.5-10.1 MG/DL Corrected Calcium 9.6 8.5-10.1 MG/DL Total Bilirubin 0.3 0.1-1.0 MG/DL Aspartate Amino Transf (AST/SGOT) 18 5-34 U/L Alanine Aminotransferase (ALT/SGPT) 20 0-55 U/L Alkaline Phosphatase 80 40-136 U/L Total Protein 8.0 6.4-8.2 GM/DL Albumin 4.5 3.2-4.5 GM/DL My Orders Orders - MARÍA EDMONDS Urinalysis (12/20/19 15:37) Ed Iv/Invasive Line Start (12/20/19 15:47) Ns Iv 500 Ml (Sodium Chloride 0.9%) (12/20/19 15:47) Acetaminophen Tablet (Tylenol Tablet) (12/20/19 16:00) Cbc With Automated Diff (12/20/19 15:47) Comprehensive Metabolic Panel (12/20/19 15:47) Ua Culture If Indicated (12/20/19 15:47) Urine Culture (12/20/19 15:40) Ceftriaxone For Iv Use (Rocephin For I (12/20/19 16:15) Medications Given in ED Current Medications Medications Dose Ordered Sig/Ren Route Start Time Stop Time Status Last Admin Dose Admin Acetaminophen 1,000 mg ONCE ONCE PO 12/20/19 16:00 12/20/19 16:01 DC 12/20/19 15:55 1,000 MG Ceftriaxone Sodium 1000 mg/ Sterile Water 10 ml @ 200 mls/hr ONCE ONCE IV 12/20/19 16:15 12/20/19 16:17 DC 12/20/19 16:18 200 MLS/HR Sodium Chloride 500 ml @ 0 mls/hr Q0M ONCE IV 12/20/19 15:47 12/20/19 15:51 DC 12/20/19 15:55 999 MLS/HR Vital Signs/I&O 12/20/19 15:40 Temp 36.4 Pulse 98 Resp 18 B/P (MAP) 161/103 (122) Pulse Ox 97 O2 Delivery Room Air Capillary Refill : Progress Note #1: Time: 15:55 Progress Note Patient was discharged approximately 2 weeks ago for pyelonephritis and acute kidney injury. She was put back on Macrobid for urinary symptoms by her primary care provider. UTI/pyelonephritis versus kidney stone? We'll obtain urine and labs first to rule out significant acute renal injury. 500 cc fluid IV and give consideration for a noncontrast CT of the abdomen and pelvis looking for renal stones. The cystic mass does not appear to be acute and so is likely unrelated to today's presentation. Progress Note #2: Time: 16:38 Progress Note Kidney function is good and she has normal white count and aseptic vital signs. She's had no material deterioration during her stay. We've given her a gram or Rocephin and put her out on cefdinir for 10 days as well as encourage her to package pick up a bottle of probiotics. Follow-up in 3-5 days with primary care doctor for reevaluation. Departure Impression Primary Impression: Pyelonephritis Disposition: 01 HOME, SELF-CARE Condition: Stable Departure-Patient Inst. Decision time for Depature: 16:38 Referrals: [facility] (PCP) Primary Care Physician ADDY SMART APRN (Family) Primary Care Physician Patient Instructions: Kidney Infection (DC) Add. Discharge Instructions: Drink lots of fluids. syruper the cefdinir and start taking one capsule twice a day beginning tomorrow. Take these for 10 days. Discontinue the other antibiotics. syruper an [id number] bottle of probiotics of your choice and start taking it twice a day. Call your primary care office and set up an appointment in the next 3-5 days for reevaluation. syruper a bottle of AZO and take 2 tablets up to 3 times a day for no more than 2 days in a row for the pain associated with urination. Tylenol 1000 mg every 8 hours as necessary for pain. All discharge instructions reviewed with patient and/or family. Voiced understanding. Scripts L.acidoph & Paracasei,B.lactis (Probiotic) 1 Each Capsule 1 EACH PO BID for 14 Days, #28 CAP 0 Refills Prov: MARÍA EDMONDS 12/20/19 Cefdinir (Cefdinir) 300 Mg Capsule 300 MG PO BID for 10 Days, #20 CAP 0 Refills Prov: MARÍA EDMONDS 12/20/19 MARÍA EDMONDS Dec 20, 2019 15:56
[2019-12-20 15:59] LABS: CLARITY,URINE CLEAR; COLOR,URINE YELLOW; GLUCOSE, URINE (UA) NEGATIVE (NEGATIVE); KETONES,URINE NEGATIVE (NEGATIVE); NITRITE,URINE NEGATIVE (NEGATIVE); PROTEIN,URINE NEGATIVE (NEGATIVE)
[2019-12-20 16:00] LABS: BACTERIA,URINE TRACE /HPF; BILIRUBIN,URINE NEGATIVE (NEGATIVE); LEUKOCYTE ESTERASE ,URINE 2+ (NEGATIVE); RENAL EPITHELIAL CELLS,URINE 0-2 /HPF; SQUAMOUS EPITHELIAL CELL,UR 0-2 /HPF
[2019-12-20] MEDS ORDERED: ACETAMINOPHEN 500 MG TAB (TYLENOL) PO ONE (16:00)
[2019-12-20 16:04] LABS: HEMATOCRIT 44 % (35-52); MEAN CORPUSCULAR HEMOGLOBIN 29 PG (25-34); MEAN CORPUSCULAR VOLUME 90 FL (80-99); WHITE BLOOD COUNT 10.6 10^3/uL (4.3-11.0)
[2019-12-20 16:05] LABS: BASOPHILS % (AUTO) 0 % (0-10); EOSINOPHILS # (AUTO) 0.3 10^3/uL (0.0-0.3); EOSINOPHILS % (AUTO) 3 % (0-10); LYMPHOCYTES # (AUTO) 3.8 X 10^3 (1.0-4.0); LYMPHOCYTES % (AUTO) 36 % (12-44); MEAN CORPUSCULAR HGB CONC 32 G/DL (32-36); MEAN PLATELET VOLUME 8.8 FL (7.4-10.4); MONOCYTES # (AUTO) 0.7 X 10^3 (0.0-1.0); MONOCYTES % (AUTO) 7 % (0-12); NEUTROPHILS # (AUTO) 5.8 X 10^3 (1.8-7.8); NEUTROPHILS % (AUTO) 55 % (42-75); PLATELET COUNT 422 10^3/uL (130-400); RED CELL DISTRIBUTION WIDTH 13.7 % (10.0-14.5)
[2019-12-20] MEDS ORDERED: cefTRIAXone FOR IV USE 1,000 MG in WATER (STERILE) FOR INJECTION 10 ML IV ONE (16:15)
[2019-12-20 16:30] LABS: BUN/CREATININE RATIO 12; CARBON DIOXIDE 25 MMOL/L (21-32); CHLORIDE 100 MMOL/L (98-107); CREATININE SERUM 0.73 MG/DL (0.60-1.30); GFR ESTIMATED > 60; SODIUM 140 MMOL/L (135-145)
[2019-12-20 16:31] LABS: ALANINE AMINOTRANSFERASE 20 U/L (0-55); ALBUMIN 4.5 GM/DL (3.2-4.5); ALKALINE PHOSPHATASE 80 U/L (40-136); BILIRUBIN,TOTAL 0.3 MG/DL (0.1-1.0); GLUCOSE 110 MG/DL (70-105)
[2019-12-20] MEDS ORDERED: L.AC1CAP6 PO (16:43)
[2019-12-20] MEDS ORDERED: CEFD300C3 PO (16:43)
[2019-12-20 16:46] VITALS: BP 134/72
--- OUTSIDE RECORDS SUMMARY | 2019-12-20 18:56 | XMS REPORT | Continuity of Care Document ---
Author Organization Unknown Address Unknown Phone Unavailable Allergies Active Description Code Type Severity Reaction Onset Reported/Identified Relationship to Patient Clinical Status Yes ADHESIVE TAPE MOD ERATE MODERATE Yes HYDROCODONE-ACETAMINOPHEN UNKNOWN UNKNOWN Yes LATEX UNKNOWN UNKNOWN Yes MORPHINE SEVERE SEVERE Yes PENICILLIN G POTASSIUM UNKNOWN UNKNOWN Yes ZITHROMAX Z-ROCHELLE S EVERE SEVERE Yes ADHESIVE TAPE 96022 Chemical Low Rash~Other 12/12/2015 12/12/2015 Yes AZITHROMYCIN [...] PLASTIC TAPE Mild N/A 12/05/2019 Yes hydrocodone [id number] Drug Aller gy Unknown N/A 12/05/2019 Yes latex [id number] Drug Allergy Unknown N/A 12/05/2019 Yes morphine [id number] Drug Allergy Unknown N/A 12/05/2019 Medications Medication [...] Oral 25 4 TIMES DAILY PRN NYSTATIN 981625 UNIT/GM EX CREA 12/13/2015 Topical 2 TIMES [...] IN AEPB 12/13/2015 Inhalation 1 DAILY NYSTATIN 601013 UNIT/GM EX CREA 12/13/2015 Topical 2 TIMES [...] 09/20/2018 HALLEY COHNBEAED T Ot 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 09/20/2018 HALLEY COHN [...] Ot N75.0 CYST OF BARTHOLIN'[place] GL[place] 12/07/2019 VERAS DO, DARION Ot N93.8 OTHER SPECIFIED ABNORMAL UTERINE AND VAG 12/07/2019 VERAS DO, DARION Ot R19.00 INTRA-ABD AND PELVIC SWELLING, MASS AND 12/07/2019 VERAS DO, DARION Ot Z68.37 BODY MASS INDEX (BMI) 37.0-37.9, ADULT 12/07/2019 VERAS DO, DARION Ot Z86.71 1 PERSONAL HISTORY OF PULMONARY EMBOLISM 12/07/2019 VERAS DO, DARION Ot Z86.71 8 PERSONAL HISTORY OF OTHER VENOUS THROMBO 12/07/2019 VERAS DO, DARION Ot Z87.44 2 PERSONAL HISTORY OF URINARY CALCULI 12/07/2019 VERAS DO, DARION Ot Z87.89 1 PERSONAL HISTORY OF NICOTINE DEPENDENCE 12/12/2019 O'DELL, ADDY K PIZZA DELIVERY DRIVER Ot N30.01 ACUTE CYSTITIS WITH HEMATURIA 12/12/2019 O'DELL, ADDY K PIZZA DELIVERY DRIVER Ot Z86.19 PERSONAL HISTORY OF OTHER INFECTIOUS AND 12/13/2019 O'DELL, ADDY K PIZZA DELIVERY DRIVER Ot N30.01 ACUTE CYSTITIS WITH HEMATURIA 12/13/2019 O'DELL, ADDY K PIZZA DELIVERY DRIVER Ot Z86.19 PERSONAL HISTORY OF OTHER INFECTIOUS AND 12/19/2019 MAGALIE JOSÉ MD Ot E11.9 TYPE 2 DIABETES MELLITUS WITHOUT COMPLIC 12/19/2019 MAGALIE JOSÉ MD, Ot F32.9 MAJOR DEPRESSIVE DISORDER, SINGLE EPISOD 12/19/2019 MAGALIE JOSÉ MD, Ot J44.9 CHRONIC OBSTRUCTIVE PULMONARY DISEASE, U 12/19/2019 MAGALIE JOSÉ MD Ot R06.0 2 SHORTNESS OF BREATH 12/19/2019 MAGALIE JOSÉ MD Ot R06.8 9 OTHER ABNORMALITIES OF BREATHING 12/19/2019 MAGALIE JOSÉ MD, Ot R07.1 CHEST PAIN ON BREATHING 12/19/2019 MAGALIE JOSÉ MD, Ot Z79.0 1 LONGTERM (CURRENT) USE OF ANTICOAGULANT 12/19/2019 MAGALIE JOSÉ MD, Ot Z79.5 1 LONGTERM (CURRENT) USE OF INHALED STERO 12/19/2019 MAGALIE JOSÉ MD, Ot Z86.7 11 PERSONAL HISTORY OF PULMONARY EMBOLISM 12/19/2019 MAGALIE JOSÉ MD, Ot Z86.7 18 PERSONAL HISTORY OF OTHER VENOUS THROMBO 12/19/2019 MAGALIE JOSÉ MD, Ot Z87.8 91 PERSONAL HISTORY OF NICOTINE DEPENDENCE 12/19/2019 MAGALIE JOSÉ MD, Ot Z88.0 ALLERGY STATUS TO PENICILLIN 12/19/2019 MAGALIE JOSÉ MD, Ot Z88.5 ALLERGY STATUS TO NARCOTIC AGENT STATUS 12/19/2019 MAGALIE JOSÉ MD, Ot Z91.0 40 LATEX ALLERGY STATUS Procedures There is no data. Results Test [...] mg/dL 0.2 WBC UA 0-3 /HPF 0-3 [id number] Negative Negative PROTIME-INR - 12/14/15 06:17 INR 1.34 INR PROTHROMBIN TIME 17.2 sec. 11.8-14.8 HEMOGLOBIN A1C - 12/14/15 06:17 HEMOGLOBIN A1C 5.8 % 4.0-6.0 SUREPATH PAP RFX HPV mRNA E6/E7 - 00:00 CLINICAL INFORMATION: NRG LMP: NRG PREV. PAP: NRG PREV. BX: NRG SOURCE: Cervix NRG STATEMENT OF ADEQUACY: NRG INTERPRETATION/RESULT: NRG TUBING DRIER: NRG COMMENT NRG A1C - 12/06/18 15:58 [...] 12:13 Surg Path Sent to [facility] Pathology Comprehensive Metabolic Panel - 01/27/19 12:12 [...] Negative Urine-Blood Negative Negative Urine-Color Yellow Colorless-[place] ow Urine-Epithelial Cells 0-5/HPF Urine-Glucose Negative Negative Urine-Ketones Negative Negative Urine-Leukocytes Negative Negative Urine-Nitrite Negative Negative Urine-Other Urine Saved if Culture Need ed (48hrs from time of collection) Urine-pH 8.5 5-8.5 Urine-Protein Negative Negative Urine-RBC Negative Urine-Specific [place] 1.015 1.000-1 .030 Urine-WBC Negative Urobilinogen 0.2 E.U./dL 0.2-1.0 Surgical Pathology - 02/14/19 13:12 Surg Path Sent to [facility] Pathology CMP - 03/17/19 09:20 GLUCOSE 99 mg/dL 65-99 UREA NITROGEN (BUN) 9 mg/dL 7-25 CREATININE 0.73 mg/dL 0.50-1.05 eGFR NON-AFR. MARSHALLESE 93 mL/min/1.73m2 > OR = 60 eGFR [...] NRG STATEMENT OF ADEQUACY: NRG INTERPRETATION/RESULT: NRG TUBING DRIER: NRG COMMENT NRG CMP - 11/15/19 11:43 GLUCOSE 83 mg/dL 65-99 UREA NITROGEN (BUN) 10 mg/dL 7-25 CREATININE 0.58 mg/dL 0.50-1.05 eGFR NON-AFR. MARSHALLESE 104 mL/min/1.73m2 > OR = 60 eGFR [...] urinalysis with reflex to cultu re - 06/01/20 14:10 Urine color determination YELLOW NRG Urine [...] 107 mmol/L 98-107 Carbon dioxide 25 mmol/L 21-32 Serum or plasma anion gap [...] 12/15/19 18:30 PROBNP FS 45.9 pg/mL <75.0 Complete urinalysis with reflex to cultu re - 12/20/19 15:40 Urine color determination YELLOW NRG Urine clarity determination CLEAR NR G Urine pH measurement by test strip 7.0 5-9 Specific gravity of urine by test strip 1.015 1.016-1.022 Urine protein assay by test strip, semi-quantitative NEGATIVE NEGATIVE Urine glucose detection by automated test strip NE GATIVE NEGATIVE Erythrocytes detection in urine sediment by light micr oscopy NEGATIVE NEGATIVE Urine ketones detection by automated test strip NE GATIVE NEGATIVE Urine nitrite detection by test strip NEGATIVE NEGATIVE Urine total bilirubin detection by test strip NEGA TIVE NEGATIVE Urine urobilinogen measurement by automated test strip (mass/volume) 0.2 mg/dL < = 1.0 Urine leukocyte esterase detection by dipstick 2+ NEGATIVE Automated urine sediment erythrocyte cou nt by microscopy (number/high power field) NONE NRG Automated urine sediment leukocyte count by microscopy (number/high power field) [HPF] NRG Bacteria detection in urine sediment by light microsco py TRACE NRG Squamous epithelial cells detection in u rine sediment by light microscopy 0-2 NRG Crystals detection in urine sediment by light microsco py NONE NRG Casts detection in urine sediment by light microscopy NONE NRG Mucus detection in urine sediment by light microscopy NEGATIVE NRG Complete urinalysis with reflex to culture YES NRG Renal epithelial cells detection in urin e sediment by light microscopy 0-2 NRG Complete blood count (CBC) with automate d white blood cell (WBC) differential - 12/20/19 15:54 Blood leukocytes automated count (number/volume) 10.6 10*3/uL 4.3-11.0 Blood erythrocytes automated count (number/volume) 4.87 10*6/uL 4.35-5.85 Venous blood hemoglobin measurement (mass/volume) 14.0 g/dL 11.5-16.0 Blood hematocrit (volume fraction) 44 % 35-52 Automated erythrocyte mean corpuscular volume 90 [ foz_us] 80-99 Automated erythrocyte mean corpuscular h emoglobin (mass per erythrocyte) 29 pg 25-34 Automated erythrocyte mean corpuscular h emoglobin concentration measurement (mass/volume) 32 g/dL 32-36 Automated erythrocyte distribution width ratio 13. 7 % 10.0- 14.5 Automated blood platelet count (count/volume) 422 10*3/uL 130-400 Automated blood platelet mean volume measurement 8.8 [foz_us] 7.4-10.4 Automated blood neutrophils/100 leukocytes 55 % 42-75 Automated blood lymphocytes/100 leukocytes 36 % 12-44 Blood monocytes/100 leukocytes 7 % 0-12 Automated blood eosinophils/100 leukocytes 3 % 0-10 Automated blood basophils/100 leukocytes 0 % 0-10 Blood neutrophils automated count (number/volume) 5.8 10*3 1.8-7.8 Blood lymphocytes automated count (number/volume) 3.8 10*3 1.0-4.0 Blood monocytes automated count (number/volume) 0. 7 10*3 0.0-1.0 Automated eosinophil count 0.3 10*3/uL 0 .0-0.3 Automated blood basophil count (count/volume) 0.0 10*3/uL 0.0-0.1 Comprehensive metabolic panel - 12/20/19 15:54 Serum or plasma sodium measurement (moles/volume) 140 mmol/L 135-145 Serum or plasma potassium measurement (moles/volume) 4.0 mmol/L 3.6-5.0 Serum or plasma chloride measurement (moles/volume) 100 mmol/L 98-107 Carbon dioxide 25 mmol/L 21-32 Serum or plasma anion gap determination (moles/volume) 15 mmol/L 5-14 Serum or plasma urea nitrogen measurement (mass/volume ) 9 mg/dL 7-18 Serum or plasma creatinine measurement (mass/volume) 0.73 mg/dL 0.60-1.30 Serum or plasma urea nitrogen/creatinine mass ratio 12 NRG Serum or plasma creatinine measurement w ith calculation of estimated glomerular filtration rate > NRG Serum or plasma glucose measurement (mass/volume) 110 mg/dL 70-105 Serum or plasma calcium measurement (mass/volume) 10.0 mg/dL 8.5-10.1 Serum or plasma total bilirubin measurement (mass/volu me) 0.3 mg/dL 0.1-1.0 Serum or plasma alkaline phosphatase aury surement (enzymatic activity/volume) 80 U/L 40-136 Serum or plasma aspartate aminotransfera se measurement (enzymatic activity/volume) 18 U/L 5-34 Serum or plasma alanine aminotransferase measurement (enzymatic activity/volume) 20 U/L 0-55 Serum or plasma protein measurement (mass/volume) 8.0 g/dL 6.4-8.2 Serum or plasma albumin measurement (mass/volume) 4.5 g/dL 3.2-4.5 CALCIUM CORRECTED 9.6 mg/dL 8.5-10.1 Encounters ACCT No. Visit Date/Time Discharge Status Pt. Type Provider Facility Loc./Unit Complaint [id number] 12/13/2019 08:30:00 12/13/2019 23:59:5 9 CLS Outpatient [facility] [id number] 11/15/2019 10:15:00 Document Registration [id number] 11/07/2019 12:30:00 Document Registration [id number] 10/07/2019 15:30:00 Document Registration [id number] 09/13/2019 13:45:00 Document Registration [id number] 09/12/2019 14:40:00 Document Registration [id number] 07/27/2019 08:00:00 Document Registration [id number] 03/17/2019 09:00:00 Document Registration [id number] 12/06/2018 15:15:00 Document Registration [id number] 10/27/2018 10:45:00 Document Registration [id number] 12/12/2015 22:15:00 6 17:51:00 DIS Inpatient JOSE MORLEY [facility] [id number] 12/13/2015 00:41:09 Document Registration [id number] 12/15/2019 18:15:00 20:38:00 DIS Outpatient MAGALIE JOSÉ MD [facility] ER FS TROUBLE BREATHING,BACK/ LUNG PAIN [id number] 12/08/2019 14:51:00 23:59:59 CLS Outpatient ADDY SMART APRN [facility] LAB FS ACUTE CYSTITIS WITH HEM ATURIA [id number] 12/05/2019 15:55:00 020 12:50:00 DIS Inpatient RYAN VERAS DOLadan Gonzáles [facility] 4TH ACUTE KIDNEY INJURY,ACU TE UTI [id number] 12/30/2018 22:42:00 019 05:32:00 DIS Emergency MAGALIE JOSÉ MD [facility] ER FS ABD AND BACK PAIN [id number] 09/18/2018 21:59:00 019 22:48:00 DIS Emergency STEVE ROWLEY DO [facility] ER FS RIGHT LEG PAIN [id number] 12/20/2019 16:01:00 Document Registration [id number] 02/14/2019 00:00:00 02/14/2019 15:06: 00 DIS Outpatient Prateek Hammond [id number] 02/08/2019 12:27:00 02/08/2019 23:59: 00 DIS Outpatient Prateek Hammond [id number] 01/27/2019 11:34:00 01/27/2019 15:00: 00 DIS Outpatient ELADIO PERRY APRN [id number] 12/31/2018 06:06:00 12/31/2018 16:30: 00 DIS Outpatient Prateek Hammond [facility] MED-SURG [id number] 12/31/2018 07:31:06 Document Registration
== END 2019-12-20 16:47 | disposition home or self-care (01) ==
LOC: EDUNIT# 15:36 → ER FS 15:37
DX: N12 Tubulo-interstitial nephritis, not specified as acute or chronic (principal); F31.9 Bipolar disorder, unspecified; J44.9 Chronic obstructive pulmonary disease, unspecified; I10 Essential (primary) hypertension; E11.9 Type 2 diabetes mellitus without complications; M79.7 Fibromyalgia; Z79.01 Long term (current) use of anticoagulants; Z88.5 Allergy status to narcotic agent; Z88.0 Allergy status to penicillin; Z91.040 Latex allergy status; Z88.8 Allergy status to other drugs, medicaments and biological substances; Z79.51 Long term (current) use of inhaled steroids; Z87.891 Personal history of nicotine dependence; Z86.711 Personal history of pulmonary embolism; Z86.718 Personal history of other venous thrombosis and embolism
CPT/HCPCS: 36415; 80053; 81000; 85025; 87088

== ENCOUNTER → 2020-01-13 | Outpatient (CLI) | payer OTHER ==
[~2020-01-13] MED LIST changes: +CEFD300C3 PO; +CETI10TA21 PO; +CRAN1TAB4 PO; +ESTR1TAB27 PO; +FLUT16SP22 NSEACH; +L.AC1CAP6 PO; +NALO4SPR NS; +RT-ALBUINH IH; +TRAM50TA3 PO
--- NOTE | 2020-01-13 16:11 | Diagnostic Imaging Report ---
INDICATION: Right-sided abdominal pain. EXAMINATION: Abdominal film was obtained at 3:59 p.m. FINDINGS: The abdominal bowel gas pattern appears unremarkable. There is moderate stool throughout the colon. There is no overt obstruction or ileus. There are surgical clips in the right upper quadrant. IMPRESSION: Moderate stool throughout the colon with no overt obstruction or ileus. Dictated by: Dictated on workstation # [id number]
== END ==
LOC: RAD FS 15:40
PROVIDERS: ATTEND Nurse Practitioner Family
DX: N30.01 Acute cystitis with hematuria (principal); R19.5 Other fecal abnormalities
CPT/HCPCS: 74018

== ENCOUNTER 2020-01-14 09:55 | Observation (INO) | payer OTHER ==
[~2020-01-14] VITALS: Ht 154.9 cm; Wt 89.8 kg
[~2020-01-14 09:55] MED LIST changes: -CETI10TA21 PO; -CRAN1TAB4 PO; -ESTR1TAB27 PO; -FLUT16SP22 NSEACH; -NALO4SPR NS; -RT-ALBUINH IH; -TRAM50TA3 PO
--- OUTSIDE RECORDS SUMMARY | 2020-01-14 10:01 | XMS REPORT | Continuity of Care Document ---
Author Organization Unknown Address Unknown Phone Unavailable Allergies Active Description Code Type Severity Reaction Onset Reported/Identified Relationship to Patient Clinical Status Yes ADHESIVE TAPE MOD ERATE MODERATE Yes HYDROCODONE-ACETAMINOPHEN UNKNOWN UNKNOWN Yes LATEX UNKNOWN UNKNOWN Yes MORPHINE SEVERE SEVERE Yes PENICILLIN G POTASSIUM UNKNOWN UNKNOWN Yes ZITHROMAX Z-ROCHELLE S EVERE SEVERE Yes ADHESIVE TAPE 53235 Chemical Low Rash~Other 12/12/2015 12/12/2015 Yes AZITHROMYCIN [...] PLASTIC TAPE Mild N/A 12/05/2019 Yes hydrocodone [id number] Drug Aller gy Unknown N/A 12/05/2019 Yes latex [id number] Drug Allergy Unknown N/A 12/05/2019 Yes morphine [id number] Drug Allergy Unknown N/A 12/05/2019 Medications Medication [...] Oral 25 4 TIMES DAILY PRN NYSTATIN 472430 UNIT/GM EX CREA 12/13/2015 Topical 2 TIMES [...] IN AEPB 12/13/2015 Inhalation 1 DAILY NYSTATIN 366083 UNIT/GM EX CREA 12/13/2015 Topical 2 TIMES [...] HALLEY COHN STEVE T Ot Z79. 01 FPC (CURRENT) USE OF ANTICOAGULANT 09/18/2018 HALLEY COHN [...] M79.604 PAIN IN RIGHT LEG 09/20/2018 HALLEY OCHNBEAED T Ot Z79. 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 19 PERSONAL HISTORY OF OTHER DISEASES OF 09/20/2018 HALLEY COHN STVEE T Ot Z87.891 PERSONAL HISTORY OF NICOTINE [...] F32.9 MAJOR DEPRESSIVE DISORDER, SINGLE EPISOD 12/07/2019 IRTO COHN DARION Ot I10 ESSENTIAL (PRIMARY) HYPERTENSION [...] OF NICOTINE DEPENDENCE 12/12/2019 O'DELL, ADDY K RACING SECRETARY AND HANDICAPPER Ot N30.01 ACUTE CYSTITIS WITH HEMATURIA 12/12/2019 O'DELL, ADDY K RACING SECRETARY AND HANDICAPPER Ot Z86.19 PERSONAL HISTORY OF OTHER INFECTIOUS AND 12/13/2019 O'DELL, ADDY K RACING SECRETARY AND HANDICAPPER Ot N30.01 ACUTE CYSTITIS WITH HEMATURIA 12/13/2019 O'DELL, ADDY K RACING SECRETARY AND HANDICAPPER Ot Z86.19 PERSONAL HISTORY OF OTHER INFECTIOUS [...] 12/19/2019 MAGALIE JOSÉ MD, Ot Z79.0 1 FPC (CURRENT) USE OF ANTICOAGULANT 12/19/2019 MAGALIE JSOÉ MD, Ot Z79.5 1 FPC (CURRENT) USE OF INHALED STERO 12/19/2019 MAGALIE JOSÉ MD, Ot Z86.7 11 PERSONAL HISTORY OF PULMONARY EMBOLISM 12/19/2019 MAGALIE JOSÉ MD, Ot Z86.7 18 PERSONAL HISTORY OF OTHER VENOUS THROMBO 12/19/2019 MAGALIE JOSÉ MD Ot Z87.8 91 PERSONAL HISTORY OF NICOTINE DEPENDENCE 12/19/2019 MAGALIE JOSÉ MD Ot Z88.0 ALLERGY STATUS TO PENICILLIN 12/19/2019 MAGALIE JOSÉ MD Ot Z88.5 ALLERGY STATUS TO NARCOTIC AGENT STATUS 12/19/2019 MAGALIE JOSÉ MD Ot Z91.0 40 LATEX ALLERGY STATUS 12/23/2019 MARÍA EDMONDS MD Ot E11. 9 TYPE 2 DIABETES MELLITUS WITHOUT COMPLIC 12/23/2019 MARÍA EDMONDS MD Ot F31. 9 BIPOLAR DISORDER, UNSPECIFIED 12/23/2019 MARÍA EDMONDS MD Ot I10 ESSENTIAL (PRIMARY) HYPERTENSION 12/23/2019 MARÍA EDMONDS MD Ot J44. 9 CHRONIC OBSTRUCTIVE PULMONARY DISEASE, U 12/23/2019 MARÍA EDMONDS MD Ot M79. 7 FIBROMYALGIA 12/23/2019 MARÍA EDMONDS MD Ot N12 TUBULO-INTERSTITIAL NEPHRITIS, NOT SPCF 12/23/2019 MARÍA EDMONDS MD Ot R30. 0 DYSURIA 12/23/2019 MARÍA EDMONDS MD Ot Z79. 01 CAPITAL EQUIPMENT SPECIALIST (CURRENT) USE OF ANTICOAGULANT 12/23/2019 MARÍA EDMONDS MD Ot Z79. 51 CAPITAL EQUIPMENT SPECIALIST (CURRENT) USE OF INHALED STERO 12/23/2019 MARÍA EDMONDS MD Ot Z86.711 PERSONAL HISTORY OF PULMONARY EMBOLISM 12/23/2019 MARÍA EDMONDS MD Ot Z86.718 PERSONAL HISTORY OF OTHER VENOUS THROMBO 12/23/2019 MARÍA EDMONDS MD Ot Z87.891 PERSONAL HISTORY OF NICOTINE DEPENDENCE 12/23/2019 MARÍA EDMONDS MD Ot Z88. 0 ALLERGY STATUS TO PENICILLIN 12/23/2019 MARÍA EDMONDS MD Ot Z88. 5 ALLERGY STATUS TO NARCOTIC AGENT STATUS 12/23/2019 MARÍA EDMONDS MD Ot Z88. 8 ALLERGY STATUS TO OTH DRUG/MEDS/BIOL SUB 12/23/2019 MARÍA EDMONDS MD Ot Z91.040 LATEX ALLERGY STATUS Procedures There is no [...] mg/dL 0.2 WBC UA 0-3 /HPF 0-3 [id number] Negative Negative PROTIME-INR - 12/14/15 06:17 INR 1.34 INR PROTHROMBIN TIME 17.2 sec. 11.8-14.8 HEMOGLOBIN A1C - 12/14/15 06:17 HEMOGLOBIN A1C 5.8 % 4.0-6.0 SUREPATH PAP RFX HPV mRNA E6/E7 - 00:00 CLINICAL INFORMATION: NRG LMP: NRG PREV. PAP: NRG PREV. BX: NRG SOURCE: Cervix NRG STATEMENT OF ADEQUACY: NRG INTERPRETATION/RESULT: NRG SALES SERVICE PROMOTER: NRG COMMENT NRG A1C - 12/06/18 15:58 [...] - 12/31/18 12:13 Surg Path Sent to [facility] Pathology Comprehensive Metabolic Panel - [...] Negative Urine-Blood Negative Negative Urine-Color Yellow Colorless-Lt. [place] ow Urine-Epithelial Cells 0-5/HPF Urine-Glucose Negative Negative Urine-Ketones Negative Negative Urine-Leukocytes Negative Negative Urine-Nitrite Negative Negative Urine-Other Urine Saved if Culture Need ed (48hrs from time of collection) Urine-pH 8.5 5-8.5 Urine-Protein Negative Negative Urine-RBC Negative Urine-Specific [place] 1.015 1.000-1 .030 Urine-WBC Negative Urobilinogen 0.2 E.U./dL 0.2-1.0 Surgical Pathology - 02/14/19 13:12 Surg Path Sent to [facility] Pathology CMP - 03/17/19 09:20 GLUCOSE 99 mg/dL 65-99 UREA NITROGEN (BUN) 9 mg/dL 7-25 CREATININE 0.73 mg/dL 0.50-1.05 eGFR NON-AFR. SURINAMESE 93 mL/min/1.73m2 > OR = 60 eGFR [...] 09/12/19 15:28 CULTURE, URINE, ROUTINE SEE NOTE NR CULTURE, ANAEROBIC AND AEROBIC - 0 13:27 [...] NRG STATEMENT OF ADEQUACY: NRG INTERPRETATION/RESULT: NRG SALES SERVICE PROMOTER: ANGEL COMMENT NRG CMP - 11/15/19 11:43 GLUCOSE 83 mg/dL 65-99 UREA NITROGEN (BUN) 10 mg/dL 7-25 CREATININE 0.58 mg/dL 0.50-1.05 eGFR NON-AFR. SURINAMESE 104 mL/min/1.73m2 > OR = 60 eGFR [...] urinalysis with reflex to cultu re - 06/16/20 15:40 Urine color determination YELLOW NRG Urine [...] e sediment by light microscopy 0-2 NRG Bacterial urine culture - 12/20/19 15:40 Bacterial urine culture 3 OR MORE NRG COLONY COUNT 30,000 CFU/ML NRG SUSCEPTIBILITY (GRAM POSITIVE) SUGGESTING PROBABLE NRG MRSA SCREEN COLLECTION CONTAMINATION WITH SKIN NRG RAPID ID DARNELL. NO SUSCEPTIIBLITY PERFORMED NRG Complete blood count (CBC) with automate [...] Status Pt. Type Provider Facility Loc./Unit Complaint [id number] 01/13/2020 15:00:00 [facility] [id number] 11/15/2019 10:15:00 Document Registration [id number] 11/07/2019 12:30:00 Document Registration [id number] 10/07/2019 15:30:00 Document Registration [id number] 09/13/2019 13:45:00 Document Registration [id number] 09/12/2019 14:40:00 Document Registration [id number] 07/27/2019 08:00:00 Document Registration [id number] 03/17/2019 09:00:00 Document Registration [id number] 12/06/2018 15:15:00 Document Registration [id number] 10/27/2018 10:45:00 Document Registration [id number] 12/12/2015 22:15:00 6 17:51:00 DIS Inpatient JOSE MORLEY [facility] [id number] 12/13/2015 00:41:09 Document Registration [id number] 12/20/2019 13:26:00 ACT Unknown [id number] 12/20/2019 15:37:00 16:47:00 DIS Outpatient MARÍA EDMONDS MD [facility] ER FS TROUBLE URINATING,BLOAT ING [id number] 12/15/2019 18:15:00 20:38:00 DIS Outpatient MAGALIE JOSÉ MD [facility] ER FS TROUBLE BREATHING,BACK/ LUNG PAIN [id number] 12/08/2019 14:51:00 23:59:59 CLS Outpatient ADDY SMART APRN [facility] LAB FS ACUTE CYSTITIS WITH HEM ATURIA [id number] 12/05/2019 15:55:00 12:50:00 DIS Inpatient RITO COHN, DARION Gonzáles [facility] 4TH ACUTE KIDNEY INJURY,ACU TE UTI [id number] 12/30/2018 22:42:00 05:32:00 DIS Emergency ARNAV MEJIA, MAGALIE Enciso [facility] ER FS ABD AND BACK PAIN [id number] 09/18/2018 21:59:00 22:48:00 DIS Emergency STEVE ROWLEY DO [facility] ER FS RIGHT LEG PAIN [id number] 01/14/2020 09:56:[address] Emergency LAW MEJIA, EMILY Conklin [facility] ER FS UNABLE TO URINATE [id number] 01/13/2020 15:40:[address] Outpatient ADDY SMART APRN [facility] RAD FS R30.0 N30.01 [id number] 02/14/2019 00:00:00 02/14/2019 15:06: 00 DIS Outpatient Prateek Hammond [id number] 02/08/2019 12:27:00 02/08/2019 23:59: 00 DIS Outpatient Prateek Hammond [id number] 01/27/2019 11:34:00 01/27/2019 15:00: 00 DIS Outpatient ELADIO PERRY APRN [id number] 12/31/2018 06:06:00 12/31/2018 16:30: 00 DIS Outpatient Prateek Hammond [facility] MED-SURG [id number] 12/31/2018 07:31:06 Document Registration
--- NOTE | 2020-01-14 10:05 | ED GU-Female ---
General Chief Complaint: - Urinary Stated Complaint: UNABLE TO URINATE History of Present Illness Date Seen by Provider: Jan 14, 2020 Time Seen by Provider: 10:01 Initial Comments The patient is a 54-year-old female with a past medical history of hypertension, yis-xynpnxq-jalvuijoq diabetes, clotting disorder / h/o PE on normal oral anticoagulant, COPD/asthma, mood disorder on daily lithium. Within the last month she has had an admission to [facility] for acute renal failure which was ascribed to her nephrotoxic medications, which she states have not been modified by her PCP since her hospitalization. She presents with concern for 3 days of decreased urination, generalized fatigue and malaise in association with several episodes of nonbloody vomiting this morning and a couple of episodes of loose watery nonbloody stool yesterday. In association with this she reports some left-sided sharp, sternal chest discomfort which had onset yesterday with a couple of twinges of severe discomfort lasting at most a few seconds each, and which has persisted as a dull pressure in her chest. Chest discomfort is pleuritic and nonexertional. Nothing else seems to make it better or worse. Associated mild shortness of breath at times. Patient reports associated mild gradual onset bilateral frontal headache with onset this morning. No associated fevers, hematemesis, hematochezia, melena, focal weakness, numbness, tingling, neck stiffness/pain/meningismus, vision changes, upper respiratory congestion/rhinorrhea, cough, new or worsened abdominal pain (patient notes some right lower quadrant abdominal pain which is chronic and which was ascribed to an ovarian cyst at her last hospitalization), flank pain, back pain, dysuria or hematuria, changes in bowel habits. Indigo states that yesterday she went to the clinic where labs were drawn and were reportedly significant for low potassium and elevated creatinine. She was given what sounds like a liter of crystalloid and instructed to keep a close eye on symptoms and to present to the emergency department if they worsened or didn't improve. Indigo is resting comfortably upon initial evaluation in the emergency department and has entirely appropriate vital signs. She is afebrile. She is speaking comfortably in full sentences. She ambulated in with a narrow, steady gait. Allergies and Home Medications Allergies Coded Allergies: hydrocodone (Verified Allergy, Unknown, 12/05/19) latex (Verified Allergy, Unknown, 12/05/19) morphine (Verified Allergy, Unknown, 12/05/19) Uncoded Allergies: PENICILLIN (Allergy, Intermediate, 12/05/19) PLASTIC TAPE (Allergy, Mild, 12/05/19) Home Medications Albuterol Sulfate 1 Puff Puff, 2 PUFF PO Q4H PRN for SHORTNESS OF BREATH, (Reported) Amitriptyline HCl 25 Mg Tablet, 25 MG PO HS, (Reported) Apixaban 5 Mg Tablet, 5 MG PO BID, (Reported) Bupropion HCl 100 Mg Tablet, 100 MG PO BID, (Reported) Cariprazine Hydrochloride 3 Mg Capsule, 3 MG PO DAILY, (Reported) Cefdinir 300 Mg Capsule, 300 MG PO BID Prescribed by: MARÍA EDMONDS on 12/20/191642 Cyclobenzaprine HCl 10 Mg Tablet, 10 MG PO BID, (Reported) Diazepam 5 Mg Tablet, 5 MG PO HS, (Reported) Fluconazole 150 Mg Tablet, 150 MG PO DAILY Take this in 72 hours Prescribed by: OZZY OSPINA on 12/06/19 1414 Gabapentin 300 Mg Capsule, 300 MG PO DAILY, (Reported) Gabapentin 300 Mg Capsule, 600 MG PO HS, (Reported) TAKES 2 (300NG) TABS Ipratropium/Albuterol Sulfate 3 Ml Ampul.neb, 1 VIAL NEB Q6H PRN for SHORTNESS OF BREATH, (Reported) L.acidoph & Paracasei,B.lactis 1 Each Capsule, 1 EACH PO BID Prescribed by: MARÍA EDMONDS on 12/20/191642 [place] Carbonate 300 Mg Capsule, 600 MG PO HS, (Reported) TAKES 2 (300MG) CAPS AT BEDTIME [place] Carbonate 300 Mg Capsule, 300 MG PO DAILY, (Reported) Mometasone Furoate 110 Mcg Aer.pow.ba, 2 PUFF IH BID PRN for SHORTNESS OF BREATH, (Reported) Montelukast Sodium 10 Mg Tablet, 10 MG PO HS, (Reported) Blanch-3/Dha/Epa/Fish Oil 1 Each Capsule, 1 EACH PO DAILY, (Reported) Oxycodone HCl/Acetaminophen 1 Each Tablet, 1 EACH PO Q6H PRN for PAIN-SEVERE (8- 10) Prescribed by: MAGALIE JOSÉ on 12/15/192032 Potassium Chloride 10 Meq Tab.er.prt, 10 MEQ PO BID WITH MEALS, (Reported) Pregabalin 150 Mg Capsule, 150 MG PO BID, (Reported) LAST FILLED 09-16-2019 #60 Trazodone HCl 100 Mg Tablet, 100-200 MG PO HS PRN for SLEEP, (Reported) TAKES 1 TO 2 (100MG) TABS AT BEDTIME Patient Home Medication List Home Medication List Reviewed: Yes Review of Systems Review of Systems Constitutional: see HPI Past Apsfpsd-Ftapcu-Gbzreq Hx Past Med/Social Hx: Reviewed Nursing Past Med/Soc Hx Patient Social History Type Used: Cigarettes Former Smoker, Quit: Jul 06, 1993 2nd Hand Smoke Exposure: No Recent Hopitalizations: No Immunizations Up To Date Date of Influenza Vaccine: Apr 05, 2018 Seasonal Allergies Seasonal Allergies: No Past Medical History Surgeries: Yes (hemorrhoidecotomy, bladder pin-up, hernia repairs with mesh) Appendectomy, Gallbladder, 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 Respiratory: Yes Asthma, Pulmonary Embolism, COPD Cardiac: Yes Deep Vein Thrombosis, Hypertension 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 oz. 81.925237le; 31.00 BMI Method:Estimated General Appearance: no apparent distress This is an older female appearing nontoxic and in no acute distress. Head is normocephalic and atraumatic. Neck is supple and nontender. Oropharynx is moist. Lungs are clear to auscultation in all stations. There is a normal S1 and S2 without rubs or gallops and capillary refill is appropriate, less than 2 seconds globally. Abdomen is soft, nontender nondistended. Skin is warm and dry without cyanosis, clubbing or edema. Bilateral upper and lower extremities are neurovascularly intact with 2+ pulses distally. Psychiatrically, the patient demonstrated appropriate mood and affect and is alert. Progress/Results/Core Measures Suspected Sepsis SIRS Temperature: Pulse: Respiratory Rate: Laboratory Tests 01/14/20 10:10: White Blood Count 16.9H Blood Pressure / Mean: Laboratory Tests 01/14/20 10:10: Creatinine 0.59L, INR Comment 1.1, Platelet Count 379, Total Bilirubin 0.3 Results/Orders Lab Results Laboratory Tests Test 01/14/20 10:10 01/14/20 10:20 Range/Units White Blood Count 16.9 H 4.3-11.0 10^3/uL Red Blood Count 4.57 4.35-5.85 10^6/uL Hemoglobin 13.2 11.5-16.0 G/DL Hematocrit 41 35-52 % Mean Corpuscular Volume 90 80-99 FL Mean Corpuscular Hemoglobin 29 25-34 PG Mean Corpuscular Hemoglobin Concent 32 32-36 G/DL Red Cell Distribution Width 13.7 10.0-14.5 % Platelet Count 379 130-400 10^3/uL Mean Platelet Volume 9.1 7.4-10.4 FL Neutrophils (%) (Auto) 79 H 42-75 % Lymphocytes (%) (Auto) 14 12-44 % Monocytes (%) (Auto) 7 0-12 % Eosinophils (%) (Auto) 0 0-10 % Basophils (%) (Auto) 0 0-10 % Neutrophils # (Auto) 13.3 H 1.8-7.8 X 10^3 Lymphocytes # (Auto) 2.4 1.0-4.0 X 10^3 Monocytes # (Auto) 1.2 H 0.0-1.0 X 10^3 Eosinophils # (Auto) 0.0 0.0-0.3 10^3/uL Basophils # (Auto) 0.0 0.0-0.1 10^3/uL Neutrophils % (Manual) 76 % Lymphocytes % (Manual) 14 % Monocytes % (Manual) 6 % Eosinophils % (Manual) 0 % Basophils % (Manual) 0 % Band Neutrophils 4 % Blood Morphology Comment NORMAL Prothrombin Time 14.1 12.2-14.7 SEC INR Comment 1.1 0.8-1.4 Activated Partial Thromboplast Time 30 24-35 SEC Sodium Level 138 135-145 MMOL/L Potassium Level 4.2 3.6-5.0 MMOL/L Chloride Level 102 98-107 MMOL/L Carbon Dioxide Level 22 21-32 MMOL/L Anion Gap 14 5-14 MMOL/L Blood Urea Nitrogen 13 7-18 MG/DL Creatinine 0.59 L 0.60-1.30 MG/DL Estimat Glomerular Filtration Rate > 60 BUN/Creatinine Ratio 22 Glucose Level 131 H 70-105 MG/DL Calcium Level 10.0 8.5-10.1 MG/DL Corrected Calcium 9.7 8.5-10.1 MG/DL Total Bilirubin 0.3 0.1-1.0 MG/DL Aspartate Amino Transf (AST/SGOT) 15 5-34 U/L Alanine Aminotransferase (ALT/SGPT) 21 0-55 U/L Alkaline Phosphatase 80 40-136 U/L Troponin I < 0.30 <0.30 NG/ML Pro-B-Type Natriuretic Peptide 444.4 H <75.0 PG/ML Total Protein 7.8 6.4-8.2 GM/DL Albumin 4.4 3.2-4.5 GM/DL Urine Color YELLOW Urine Clarity SL CLOUDY Urine pH 7.5 5-9 Urine Specific [place] 1.015 L 1.016-1.022 Urine Protein NEGATIVE NEGATIVE Urine Glucose (UA) NEGATIVE NEGATIVE Urine Ketones NEGATIVE NEGATIVE Urine Nitrite NEGATIVE NEGATIVE Urine Bilirubin NEGATIVE NEGATIVE Urine Urobilinogen 0.2 < = 1.0 MG/DL Urine Leukocyte Esterase 3+ H NEGATIVE Urine RBC (Auto) 1+ H NEGATIVE Urine RBC 2-5 H /HPF Urine WBC >100 H /HPF Urine Squamous Epithelial Cells 2-5 /HPF Urine Crystals NONE /LPF Urine Bacteria FEW H /HPF Urine Casts NONE /LPF Urine Mucus NEGATIVE /LPF Urine Culture Indicated YES My Orders Orders - EMILY FOY MD Cbc With Automated Diff (01/14/20 10:12) Comprehensive Metabolic Panel (01/14/20 10:12) Troponin I Fs (01/14/20 10:12) Ekg Tracing (01/14/20 10:12) Chest 1 View Ap/Pa Only (01/14/20 10:12) Protime With Inr (01/14/20 10:12) Partial Thromboplastin Time (01/14/20 10:12) Probnp Fs (01/14/20 10:12) Ua Culture If Indicated (01/14/20 10:12) [place] Level (01/14/20 10:12) Ondansetron Injection (Zofran Injectio (01/14/20 10:15) Manual Differential (01/14/20 10:10) Acetaminophen Tablet/Caplet (Tylenol T (01/14/20 10:30) Urine Culture (01/14/20 10:20) Lactated Ringers (Lr 1000 Ml Iv Solution (01/14/20 11:00) Ceftriaxone For Iv Use (Rocephin For I (01/14/20 11:00) Fibrin Degradation Products (01/14/20 11:01) Medications Given in ED Current Medications Medications Dose Ordered Sig/Ren Route Start Time Stop Time Status Last Admin Dose Admin Acetaminophen 975 mg ONCE ONCE PO 01/14/20 10:30 01/14/20 10:31 DC 01/14/20 10:35 975 MG Ondansetron HCl 4 mg ONCE ONCE IVP 01/14/20 10:15 01/14/20 10:16 DC 01/14/20 10:25 4 MG Vital Signs/I&O 01/14/20 09:59 Temp 36.4 Pulse 73 Resp 16 B/P (MAP) 134/96 (109) Pulse Ox 96 O2 Delivery Room Air Capillary Refill : Progress Note : Time: 10:22 Progress Note 54-year-old female with numerous comorbidities who presents with decreased uri nation, malaise and fatigue in association with some nausea and vomiting over the last 3 days. Secondarily is also noting some chest discomfort since last night, quite atypical. Is on a novel oral anticoagulant for a history of PE. We'll check a cardiorespiratory workup as noted as well as urine and we'll give some medication for nausea as well as Tylenol for headache. We will then reevaluate. 1100: UA with evidence of UTI; associated leukocytosis. Rest of workup largely reassuring. Given chest pain over the last one day with +risk factors for ACS, will need obs on tele for ACS r/o. Case d/w Dr. Desir who requests repeat UA with straight catheterization prior to antibiotics. Will obtain. [place] level has been sent out for analysis. Will bring in for further care under Dr. Desir at [place], who graciously accepts. ECG Comment Sinus rhythm, rate 88, no acute ST elevation or depression, MT 162, QRS 101, QTC 482, EP interpretation. Diagnostic Imaging Comments No acute process, EP interp Departure Impression Primary Impression: Acute cystitis without hematuria Additional Impression: Other chest pain Disposition: ADMITTED INPATIENT Condition: Stable Departure-Patient Inst. Referrals: [facility] (PCP) Primary Care Physician ADDY SMART APRN (Family) Primary Care Physician EMILY FOY MD Jan 14, 2020 10:05
[2020-01-14] MEDS ORDERED: ONDANSETRON 4 MG/2 ML (SDV) Z0FRAN IVP ONE (10:15)
[2020-01-14 10:24] LABS: BASOPHILS % (AUTO) 0 % (0-10); EOSINOPHILS % (AUTO) 0 % (0-10); HEMATOCRIT 41 % (35-52); HEMOGLOBIN 13.2 G/DL (11.5-16.0); LYMPHOCYTES % (AUTO) 14 % (12-44); MEAN CORPUSCULAR HEMOGLOBIN 29 PG (25-34); MEAN CORPUSCULAR HGB CONC 32 G/DL (32-36); MEAN CORPUSCULAR VOLUME 90 FL (80-99); MEAN PLATELET VOLUME 9.1 FL (7.4-10.4); MONOCYTES % (AUTO) 7 % (0-12); NEUTROPHILS # (AUTO) 13.3 X 10^3 (1.8-7.8); NEUTROPHILS % (AUTO) 79 % (42-75); PLATELET COUNT 379 10^3/uL (130-400); RED CELL DISTRIBUTION WIDTH 13.7 % (10.0-14.5); WHITE BLOOD COUNT 16.9 10^3/uL (4.3-11.0)
[2020-01-14 10:25] LABS: LYMPHOCYTES # (AUTO) 2.4 X 10^3 (1.0-4.0); MONOCYTES # (AUTO) 1.2 X 10^3 (0.0-1.0)
[2020-01-14 10:30] LABS: CLARITY,URINE SL CLOUDY; COLOR,URINE YELLOW; GLUCOSE, URINE (UA) NEGATIVE (NEGATIVE); PH,URINE 7.5 (5-9); PROTEIN,URINE NEGATIVE (NEGATIVE)
[2020-01-14] MEDS ORDERED: ACETAMINOPHEN 325 MG TABLET PO ONE (10:30)
[2020-01-14 10:31] LABS: BACTERIA,URINE FEW /HPF; BILIRUBIN,URINE NEGATIVE (NEGATIVE); KETONES,URINE NEGATIVE (NEGATIVE); LEUKOCYTE ESTERASE ,URINE 3+ (NEGATIVE); NITRITE,URINE NEGATIVE (NEGATIVE); WBC,URINE >100 /HPF
[2020-01-14 10:53] LABS: ALANINE AMINOTRANSFERASE 21 U/L (0-55); ALKALINE PHOSPHATASE 80 U/L (40-136); BILIRUBIN,TOTAL 0.3 MG/DL (0.1-1.0); BUN/CREATININE RATIO 22; CARBON DIOXIDE 22 MMOL/L (21-32); CHLORIDE 102 MMOL/L (98-107); CREATININE SERUM 0.59 MG/DL (0.60-1.30); GFR ESTIMATED > 60; GLUCOSE 131 MG/DL (70-105); INR 1.1 (0.8-1.4); POTASSIUM 4.2 MMOL/L (3.6-5.0); PROTHROMBIN TIME PATIENT 14.1 SEC (12.2-14.7); SODIUM 138 MMOL/L (135-145)
--- NOTE | 2020-01-14 10:53 | Diagnostic Imaging Report ---
Indication: Chest pain. Comparison: None. Discussion: Single portable upright view of the chest was obtained. Normal heart size. No consolidation, pleural fluid, or pneumothorax. No osseous abnormality. Impression: 1. Negative portable chest. Dictated by: Dictated on workstation # [id number]
[2020-01-14 10:54] LABS: ALBUMIN 4.4 GM/DL (3.2-4.5); TOTAL PROTEIN 7.8 GM/DL (6.4-8.2)
[2020-01-14 10:58] LABS: BAND NEUTROPHILS 4 %; BASOPHILS % (MANUAL) 0 %; EOSINOPHILS % (MANUAL) 0 %; LYMPHOCYTES % (MANUAL) 14 %; MONOCYTES % (MANUAL) 6 %; NEUTROPHILS % (MANUAL) 76 %; RBC MORPH NORMAL
[2020-01-14] MEDS ORDERED: LACTATED RINGERS 1,000 ML IV ONE (11:00)
[2020-01-14] MEDS ORDERED: cefTRIAXone FOR IV USE 1,000 MG in WATER (STERILE) FOR INJECTION 10 ML IV ONE (11:00)
[2020-01-14] MEDS ORDERED: ASPIRIN 325 MG (5 GR) TABLET PO ONE (11:15)
[2020-01-14 11:28] LABS: BILIRUBIN,URINE NEGATIVE (NEGATIVE); CLARITY,URINE CLEAR; COLOR,URINE YELLOW; GLUCOSE, URINE (UA) NEGATIVE (NEGATIVE); KETONES,URINE NEGATIVE (NEGATIVE); LEUKOCYTE ESTERASE ,URINE NEGATIVE (NEGATIVE); NITRITE,URINE NEGATIVE (NEGATIVE); PROTEIN,URINE NEGATIVE (NEGATIVE); WBC,URINE RARE /HPF
[2020-01-14] MEDS ORDERED: PROCHLORPERAZINE 10 MG/2ML INJ (COMPAZINE) IV ONE (11:30)
[2020-01-14] MEDS ORDERED: diphenhydrAMINE 50 MG/ML INJ (BENADRYL) IVP ONE (11:30)
--- NOTE | 2020-01-14 13:25 | NUR ---
NICKIE CHUA admitted to room 405-1, with an admitting diagnosis of chest pain and UTI, on 01/14/20 from [facility] via ambulance, accompanied by staff. NICKIE CHUA introduced to surroundings, call light, bed controls, phone, TV, temperature control, lights, meal times, smoking policy, visitor policy, side rail policy, bathrooms and showers. Patient Rights given to patient in the handbook. NICKIE CHUA verbalizes understanding that [facility] is not responsible for the loss or damage to any personal effects or valuables that are kept in the patients posession during their hospitalization. ORIENTED TO ROOM, CALL LIGHT WITHIN REACH.
[2020-01-14 13:27] VITALS: BP 135/86
--- OUTSIDE RECORDS SUMMARY | 2020-01-14 13:28 | XMS REPORT | Continuity of Care Document ---
Author Organization Unknown Address Unknown Phone Unavailable Allergies Active Description Code Type Severity Reaction Onset Reported/Identified Relationship to Patient Clinical Status Yes ADHESIVE TAPE MOD ERATE MODERATE Yes HYDROCODONE-ACETAMINOPHEN UNKNOWN UNKNOWN Yes LATEX UNKNOWN UNKNOWN Yes MORPHINE SEVERE SEVERE Yes PENICILLIN G POTASSIUM UNKNOWN UNKNOWN Yes ZITHROMAX Z-ROCHELLE S EVERE SEVERE Yes ADHESIVE TAPE 41318 Chemical Low Rash~Other 12/12/2015 12/12/2015 Yes AZITHROMYCIN [...] PLASTIC TAPE Mild N/A 12/05/2019 Yes hydrocodone [id number] Drug Aller gy Unknown N/A 12/05/2019 Yes latex [id number] Drug Allergy Unknown N/A 12/05/2019 Yes morphine [id number] Drug Allergy Unknown N/A 12/05/2019 Medications Medication [...] Oral 25 4 TIMES DAILY PRN NYSTATIN 556901 UNIT/GM EX CREA 12/13/2015 Topical 2 TIMES [...] IN AEPB 12/13/2015 Inhalation 1 DAILY NYSTATIN 598311 UNIT/GM EX CREA 12/13/2015 Topical 2 TIMES [...] T Ot J45.909 UNSPECIFIED ASTHMA, UNCOMPLICATED 09/18/2018 AHLLEY COHN STEVE T Ot M79.604 PAIN IN RIGHT LEG 09/18/2018 HALLEY COHN STEVE T Ot Z79. 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 09/20/2018 HALLEY COHN [...] OF NICOTINE DEPENDENCE 12/12/2019 O'DELL, ADDY K BEHAVIORAL HEALTH ASSISTANT Ot N30.01 ACUTE CYSTITIS WITH HEMATURIA 12/12/2019 O'DELL, ADDY K BEHAVIORAL HEALTH ASSISTANT Ot Z86.19 PERSONAL HISTORY OF OTHER INFECTIOUS AND 12/13/2019 O'DELL, ADDY K BEHAVIORAL HEALTH ASSISTANT Ot N30.01 ACUTE CYSTITIS WITH HEMATURIA 12/13/2019 O'DELL, ADDY K BEHAVIORAL HEALTH ASSISTANT Ot Z86.19 PERSONAL HISTORY OF OTHER INFECTIOUS [...] 12/19/2019 MAGALIE JOSÉ MD, Ot Z79.0 1 CARE HOME (CURRENT) USE OF ANTICOAGULANT 12/19/2019 MAGALIE JOSÉ MD, Ot Z79.5 1 CARE HOME (CURRENT) USE OF INHALED STERO 12/19/2019 MAGALIE [...] 12/23/2019 MARÍA EDMONDS MD Ot 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 51 CARE HOME (CURRENT) USE OF INHALED STERO 12/23/2019 MARÍA [...] mg/dL 0.2 WBC UA 0-3 /HPF 0-3 [id number] Negative Negative PROTIME-INR - 12/14/15 06:17 INR 1.34 INR PROTHROMBIN TIME 17.2 sec. 11.8-14.8 HEMOGLOBIN A1C - 12/14/15 06:17 HEMOGLOBIN A1C 5.8 % 4.0-6.0 SUREPATH PAP RFX HPV mRNA E6/E7 - 00:00 CLINICAL INFORMATION: NRG LMP: NRG PREV. PAP: NRG PREV. BX: NRG SOURCE: Cervix NRG STATEMENT OF ADEQUACY: NRG INTERPRETATION/RESULT: NRG MULTIGRAPH OPERATOR: NRG COMMENT NRG A1C - 12/06/18 15:58 [...] 12:13 Surg Path Sent to [facility] Pathology Comprehensive Metabolic Panel - [...] Negative Urine-Blood Negative Negative Urine-Color Yellow Colorless-Lt. [place] ow Urine-Epithelial Cells 0-5/HPF Urine-Glucose Negative Negative Urine-Ketones Negative Negative Urine-Leukocytes Negative Negative Urine-Nitrite Negative Negative Urine-Other Urine Saved if Culture Need ed (48hrs from time of collection) Urine-pH 8.5 5-8.5 Urine-Protein Negative Negative Urine-RBC Negative Urine-Specific [place] 1.015 1.000-1 .030 Urine-WBC Negative Urobilinogen 0.2 E.U./dL 0.2-1.0 Surgical Pathology - 02/14/19 13:12 Surg Path Sent to [facility] Pathology CMP - 03/17/19 09:20 GLUCOSE 99 mg/dL 65-99 UREA NITROGEN (BUN) 9 mg/dL 7-25 CREATININE 0.73 mg/dL 0.50-1.05 eGFR NON-AFR. [place] 93 mL/min/1.73m2 > OR = 60 eGFR [...] NRG STATEMENT OF ADEQUACY: NRG INTERPRETATION/RESULT: NRG MULTIGRAPH OPERATOR: ANGEL COMMENT NRG CMP - 11/15/19 11:43 GLUCOSE 83 mg/dL 65-99 UREA NITROGEN (BUN) 10 mg/dL 7-25 CREATININE 0.58 mg/dL 0.50-1.05 eGFR NON-AFR. [place] 104 mL/min/1.73m2 > OR = 60 eGFR [...] g/dL 3.2-4.5 CALCIUM CORRECTED 9.6 mg/dL 8.5-10.1 Complete blood count (CBC) with automate d white blood cell (WBC) differential - 01/14/20 10:10 Blood leukocytes automated count (number/volume) 16.9 10*3/uL 4.3-11.0 Blood erythrocytes automated count (number/volume) 4.57 10*6/uL 4.35-5.85 Venous blood hemoglobin measurement (mass/volume) 13.2 g/dL 11.5-16.0 Blood hematocrit (volume fraction) 41 % 35-52 Automated erythrocyte mean corpuscular volume 90 [ foz_us] 80-99 Automated erythrocyte mean corpuscular h emoglobin (mass per erythrocyte) 29 pg 25-34 Automated erythrocyte mean corpuscular h emoglobin concentration measurement (mass/volume) 32 g/dL 32-36 Automated erythrocyte distribution width ratio 13. 7 % 10.0- 14.5 Automated blood platelet count (count/volume) 379 10*3/uL 130-400 Automated blood platelet mean volume measurement 9.1 [foz_us] 7.4-10.4 Automated blood neutrophils/100 leukocytes 79 % 42-75 Automated blood lymphocytes/100 leukocytes 14 % 12-44 Blood monocytes/100 leukocytes 7 % 0-12 Automated blood eosinophils/100 leukocytes 0 % 0-10 Automated blood basophils/100 leukocytes 0 % 0-10 Blood neutrophils automated count (number/volume) 13.3 10*3 1.8-7.8 Blood lymphocytes automated count (number/volume) 2.4 10*3 1.0-4.0 Blood monocytes automated count (number/volume) 1. 2 10*3 0.0-1.0 Automated eosinophil count 0.0 10*3/uL 0 .0-0.3 Automated blood basophil count (count/volume) 0.0 10*3/uL 0.0-0.1 PT panel in platelet poor plasma by coag ulation assay - 01/14/20 10:10 Prothrombin time (PT) in platelet poor plasma by coagu lation assay 14.1 s 12.2-14.7 INR in platelet poor plasma or blood by coagulation as say 1.1 0.8-1.4 Activated partial thromboplastin time (a PTT) in platelet poor plasma bycoagulation assay - 01/14/20 10:10 Activated partial thromboplastin time (a PTT) in platelet poor plasma bycoagulation assay 30 s 24-35 Comprehensive metabolic panel - 01/14/20 10:10 Serum or plasma sodium measurement (moles/volume) 138 mmol/L 135-145 Serum or plasma potassium measurement (moles/volume) 4.2 mmol/L 3.6-5.0 Serum or plasma chloride measurement (moles/volume) 102 mmol/L 98-107 Carbon dioxide 22 mmol/L 21-32 Serum or plasma anion gap determination (moles/volume) 14 mmol/L 5-14 Serum or plasma urea nitrogen measurement (mass/volume ) 13 mg/dL 7-18 Serum or plasma creatinine measurement (mass/volume) 0.59 mg/dL 0.60-1.30 Serum or plasma urea nitrogen/creatinine mass ratio 22 NRG Serum or plasma creatinine measurement w ith calculation of estimated glomerular filtration rate > NRG Serum or plasma glucose measurement (mass/volume) 131 mg/dL 70-105 Serum or plasma calcium measurement (mass/volume) 10.0 mg/dL 8.5-10.1 Serum or plasma total bilirubin measurement (mass/volu me) 0.3 mg/dL 0.1-1.0 Serum or plasma alkaline phosphatase aury surement (enzymatic activity/volume) 80 U/L 40-136 Serum or plasma aspartate aminotransfera se measurement (enzymatic activity/volume) 15 U/L 5-34 Serum or plasma alanine aminotransferase measurement (enzymatic activity/volume) 21 U/L 0-55 Serum or plasma protein measurement (mass/volume) 7.8 g/dL 6.4-8.2 Serum or plasma albumin measurement (mass/volume) 4.4 g/dL 3.2-4.5 CALCIUM CORRECTED 9.7 mg/dL 8.5-10.1 TROPONIN I FS - 01/14/20 10:10 TROPONIN I FS < 0.30 <0.30 PROBNP FS - 01/14/20 10:10 PROBNP FS 444.4 pg/mL <75.0 Manual absolute plasma cell count - 01/03 07/25 10:10 Blood monocytes/100 leukocytes 6 % NRG Manual blood segmented neutrophils/100 leukocytes 76 % NRG Blood band neutrophils/100 leukocytes 4 % NRG Manual blood lymphocytes/100 leukocytes 14 % NRG Manual eosinophils/100 leukocytes in nose 0 % NRG Manual blood basophils/100 leukocytes 0 % NRG Blood erythrocyte morphology finding identification NORMAL NRG Complete urinalysis with reflex to cultu re - 01/14/20 10:20 Urine color determination YELLOW NRG Urine clarity determination SL CLOUDY N RG Urine pH measurement by test strip 7.5 5-9 Specific gravity of urine by test strip 1.015 1.016-1.022 Urine protein assay by test strip, semi-quantitative NEGATIVE NEGATIVE Urine glucose detection by automated test strip NE GATIVE NEGATIVE Erythrocytes detection in urine sediment by light micr oscopy 1+ NEGATIVE Urine ketones detection by automated test [...] leukocyte count by microscopy (number/high power field) > [HPF] NRG Bacteria detection in urine sediment by light microsco py FEW NRG Squamous epithelial cells detection in u rine sediment by light microscopy 2-5 NRG Crystals detection in urine sediment by light microsco py NONE NRG Casts detection in urine sediment by light microscopy NONE NRG Mucus detection in urine sediment by light microscopy NEGATIVE NRG Complete urinalysis with reflex to culture YES NRG Fibrin D-dimer FEU measurement in platel et poor plasma (mass/volume) - 01/14/20 10:20 Fibrin D-dimer FEU measurement in platelet poor plasma (mass/volume) 0.42 ug/mL 0.00-0.49 Complete urinalysis with reflex to cultu re - 01/14/20 11:14 Urine color determination YELLOW NRG Urine clarity determination CLEAR NR G Urine pH measurement by test strip 7.0 5-9 Specific gravity of urine by test strip 1.010 1.016-1.022 Urine protein assay by test strip, [...] 1.0 Urine leukocyte esterase detection by dipstick NEG ATIVE NEGATIVE Automated urine sediment erythrocyte cou nt by microscopy (number/high power field) NONE NRG Automated urine sediment leukocyte count by microscopy (number/high power field) RARE NRG Bacteria detection in urine sediment by light microsco py NONE NRG Crystals detection in urine sediment by light microsco py NONE NRG Casts detection in urine sediment by light microscopy NONE NRG Mucus detection in urine sediment by light microscopy NEGATIVE NRG Complete urinalysis with reflex to culture NO NRG Encounters ACCT No. Visit Date/Time Discharge Status Pt. Type Provider Facility Loc./Unit Complaint [id number] 01/13/2020 15:00:00 ACT Outpatient [facility] [id number] 11/15/2019 10:15:00 Document Registration [id number] 11/07/2019 12:30:00 Document Registration [id number] 10/07/2019 15:30:00 Document Registration [id number] 09/13/2019 13:45:00 Document Registration [id number] 09/12/2019 14:40:00 Document Registration [id number] 07/27/2019 08:00:00 Document Registration [id number] 03/17/2019 09:00:00 Document Registration [id number] 12/06/2018 15:15:00 Document Registration [id number] 10/27/2018 10:45:00 Document Registration [id number] 12/12/2015 22:15:00 6 17:51:00 DIS Inpatient JOSE MORLEY [facility] [id number] 12/13/2015 00:41:09 Document Registration [id number] 12/20/2019 13:26:00 ACT Unknown [id number] 12/20/2019 15:37:00 16:47:00 DIS Outpatient GREY MEJIA, MARÍA Torres [facility] ER FS TROUBLE URINATING,BLOAT ING [id number] 12/15/2019 18:15:00 20:38:00 DIS Outpatient ARNAV MEJIA, MAGALIE Enciso [facility] ER FS TROUBLE BREATHING,BACK/ LUNG PAIN [id number] 12/08/2019 14:51:00 23:59:59 CLS Outpatient ADDY SMART APRN [facility] LAB FS ACUTE CYSTITIS WITH HEM ATURIA [id number] 12/05/2019 15:55:00 12:50:00 DIS Inpatient DARION VERAS DO V [facility] 4TH ACUTE KIDNEY INJURY,ACU TE UTI [id number] 12/30/2018 22:42:00 05:32:00 DIS Emergency MAGALIE JOSÉ MD [facility] ER FS ABD AND BACK PAIN [id number] 09/18/2018 21:59:00 22:48:00 DIS Emergency STEVE ROWLEY DO [facility] ER FS RIGHT LEG PAIN [id number] 01/14/2020 09:56:[address] Emergency LAW MEJIA, EMILY Conklin [facility] ER FS UNABLE TO URINATE [id number] 01/13/2020 15:40:[address] Outpatient ADDY SMART APRN [facility] RAD FS R30.0 N30.01 [id number] 02/14/2019 00:00:00 02/14/2019 15:06: 00 DIS Outpatient Prateek Hammond [id number] 02/08/2019 12:27:00 02/08/2019 23:59: 00 DIS Outpatient Prateek Hammond [id number] 01/27/2019 11:34:00 01/27/2019 15:00: 00 DIS Outpatient ELADIO PERRY APRN [id number] 12/31/2018 06:06:00 12/31/2018 16:30: 00 DIS Outpatient Prateek Hammond [facility] MED-SURG [id number] 12/31/2018 07:31:06 Document Registration
[2020-01-14] MEDS ORDERED: ENOXAPARIN 40 MG/0.4 ML (LOVENOX) SYR SC SCH (13:30)
[2020-01-14] MEDS ORDERED: ONDANSETRON 4 MG/2 ML (SDV) Z0FRAN IVP PRN (13:30)
[2020-01-14] MEDS ORDERED: ONDANSETRON 4 MG (ZOFRAN) ORAL DISSOLVE TAB PO PRN (13:30)
[2020-01-14] MEDS ORDERED: DOCUSATE SODIUM 100 MG (COLACE) CAP PO PRN (13:30)
[2020-01-14] MEDS ORDERED: ACETAMINOPHEN 500 MG TAB (TYLENOL) PO PRN (13:30)
[2020-01-14] MEDS ORDERED: MELATONIN 3 MG TABLET PO PRN (13:30)
[2020-01-14] MEDS ORDERED: ALPRAZolam 0.25 MG (XANAX) TAB PO PRN (13:30)
[2020-01-14] MEDS ORDERED: CALCIUM CARBONATE 500 MG (TUMS) TAB.CHEW PO PRN (13:30)
[2020-01-14] MEDS ORDERED: LOPERAMIDE 2 MG (IMODIUM) TABLET PO PRN (13:30)
[2020-01-14] MEDS ORDERED: IBUPROFEN TABLET 200 MG TAB PO PRN (13:30)
[2020-01-14] MEDS ORDERED: diphenhydrAMINE 25 MG TAB (BENADRYL) PO PRN (13:30)
[2020-01-14] MEDS ORDERED: NS IV 1000 ML 1,000 ML ONE (13:33)
[2020-01-14] MEDS ORDERED: cefTRIAXone 1,000 MG/SWFI 10 ML IV PUSH IV ONE ×2 (13:45)
[2020-01-14] MEDS: NS IV 1000 ML 1,000 ML IV SCH (14:20)
--- NOTE | 2020-01-14 14:36 | Consultation-Cardiology ---
HPI-Cardiology Cardiology Consultation: Date of Consultation 01/14/20 Date of Admission Attending Physician Chantal Desir DO Admitting Physician [facility] Consulting Physician Reginald POWELL MD HPI: Time Seen by a Provider: 14:34 Chief Complaint: Chest pain This is a 54-year-old lady with previous history of hypertension, diabetes, Previous history of PE on oral anticoagulation, COPD, asthma, mood disorder only team. She was previously admitted to our hospital in December 2019 for acute renal failure. She now presented to [facility] with complains of decreased urin ation, fatigue and tiredness. Also episodes of diarrhea as well. During the history she also complained of left-sided substernal chest discomfort. Sharp. No exacerbating or relieving factors. Associated shortness of breath. She denies any other complaints. Review of Systems-Cardiology Review of Systems Constitutional: As described under HPI; No As described under HPI, No no symptoms reported, No chills, No fever, No lightheadedness; tiredness Eyes: No As described under HPI, No no symptoms reported, No blindness, No blurred vision, No contact lenses, No drainage, No decreased acuity, No foreign body sensation, No pain, No vision change Ears/Nose/Throat: No As described under HPI, No no symptoms reported, No chronic hearing loss, No ear discharge, No ear pain, No nasal drainage, No ulcerations Respiratory: No no symptoms reported; As described under HPI; No As described under HPI, No cough, No orthopnea, No shortness of breath, No SOB with excertion Cardiovascular: No no symptoms reported; As described under HPI; No As described under HPI; chest pain; No edema, No irregular heart rate, No lightheadedness, No palpitations Gastrointestinal: No no symptoms reported, No As described under HPI, No abdomen distended, No abdominal pain, No blood streaked bowels, No constipation, No diarrhea, No nausea, No vomiting; nausea/vomiting/diarrhea; No stool coloration changes Genitourinary: No As described under HPI, No burning, No dysuria, No discharge, No frequency, No flank pain, No hematuria, No urgency : Yes : No Skin: No rash, No skin related problems, No ulcerations Psychiatric/Neurological: No anxiety, No depression, No seizure, No focal weakness, No syncope Hematologic: No bleeding abnormalities PFR-Bfluzj-Tvzpwo Hx Patient Social History Alcohol Use: Denies Use Recreational Drug Use: No Smoking Status: Never a Smoker Type Used: Cigarettes 2nd Hand Smoke Exposure: No Recent Foreign Travel: No Recent Infectious Disease Expo: No Hospitalization with Isolation: Denies Immunizations Up To Date Date of Pneumonia Vaccine: May 06, 2019 Date of Influenza Vaccine: Apr 05, 2018 Past Medical History PMH As described under Assessment. Family Medical History Family History: Cardiovascular disease 19 MOTHER Colon cancer 19 FATHER G8 BROTHER G8 BROTHER Diabetes mellitus 19 MOTHER G8 BROTHER Allergies and Home Medications Allergies Coded Allergies: hydrocodone (Verified Allergy, Unknown, 12/05/19) latex (Verified Allergy, Unknown, 12/05/19) morphine (Verified Allergy, Unknown, 12/05/19) Uncoded Allergies: PENICILLIN (Allergy, Intermediate, 12/05/19) PLASTIC TAPE (Allergy, Mild, 12/05/19) Home Medications Albuterol Sulfate 1 Puff Puff, 2 PUFF PO Q4H PRN for SHORTNESS OF BREATH, (Reported) Amitriptyline HCl 25 Mg Tablet, 25 MG PO HS, (Reported) Apixaban 5 Mg Tablet, 5 MG PO BID, (Reported) Bupropion HCl 100 Mg Tablet, 100 MG PO BID, (Reported) Cariprazine Hydrochloride 3 Mg Capsule, 3 MG PO DAILY, (Reported) Cetirizine HCl 10 Mg Tablet, 10 MG PO DAILY, (Reported) Cranberry Conc/C/Bacill Coag 1 Each Tablet, 1 EACH PO DAILY, (Reported) Cyclobenzaprine HCl 10 Mg Tablet, 10 MG PO BID, (Reported) Diazepam 5 Mg Tablet, 5 MG PO HS, (Reported) Estradiol 1 Mg Tablet, 1 MG PO HS, (Reported) Fluticasone Propionate 16 Gm [place].susp, 1 SPRAY NSEACH DAILY PRN for CONGESTION, (Reported) Gabapentin 300 Mg Capsule, 300 MG PO DAILY, (Reported) Gabapentin 300 Mg Capsule, 600 MG PO HS, (Reported) TAKES 2 (300NG) TABS Ibuprofen 200 Mg Tablet, 400 MG PO Q8H PRN for PAIN-MILD (1-4), (Reported) Ipratropium/Albuterol Sulfate 3 Ml Ampul.neb, 1 VIAL NEB Q6H PRN for SHORTNESS OF BREATH, (Reported) L.acidoph & Paracasei,B.lactis 1 Each Capsule, 1 EACH PO BID Prescribed by: MARÍA EDMONDS on 12/20/19 1643 Lisinopril 10 Mg Tablet, 10 MG PO DAILY, (Reported) [place] Carbonate 300 Mg Capsule, 600 MG PO HS, (Reported) TAKES 2 (300MG) CAPS AT BEDTIME [place] Carbonate 300 Mg Capsule, 300 MG PO DAILY, (Reported) Metformin HCl 500 Mg Tablet, 500 MG PO DAILY, (Reported) Mometasone Furoate 110 Mcg Aer.pow.ba, 2 PUFF IH BID PRN for SHORTNESS OF BREATH, (Reported) Montelukast Sodium 10 Mg Tablet, 10 MG PO HS, (Reported) Naloxone HCl 4 Mg [place], 1 SPRAY NS UD PRN for OPIOID OVERDOSE, (Reported) [place]-3/Dha/Epa/Fish Oil 1 Each Capsule, 1 EACH PO DAILY, (Reported) Potassium Chloride 10 Meq Tab.er.prt, 10 MEQ PO BID WITH MEALS, (Reported) Pregabalin 150 Mg Capsule, 150 MG PO BID, (Reported) Tramadol HCl 50 Mg Tablet, 50-100 MG PO TID PRN for PAIN-MODERATE (5-7), (Report ed) Trazodone HCl 100 Mg Tablet, 100-200 MG PO HS PRN for SLEEP, (Reported) TAKES 1 TO 2 (100MG) TABS AT BEDTIME Triamterene/Hydrochlorothiazid 1 Each Tablet, 1 EACH PO HS, (Reported) Patient Home Medication List Home Medication List Reviewed: Yes Physical Exam-Cardiology Physical Exam Vital Signs/I&O 01/16/20 01/16/20 01/16/20 01/16/20 04:40 06:31 07:45 08:34 Temp 36.4 36.1 Pulse 77 75 78 Resp 18 20 B/P (MAP) 105/59 (74) 107/64 (78) Pulse Ox 94 92 O2 Delivery Room Air Room Air Room Air 01/16/20 13:14 Temp 36.5 Pulse 86 Resp 20 B/P (MAP) 157/89 (111) Pulse Ox 96 O2 Delivery Room Air 01/16/20 00:00 Intake Total 1700 ml Output Total 2650 ml Balance -950 ml Capillary Refill : Less Than 3 Seconds Constitutional: appears stated age, AAO x 3; No apparent distress; well- developed, well-nourished HEENT: PERRL; No discharge; hearing is well preserved, oral hygience is good; No ulceration, No xanthelasmas are seen Neck: No carotid bruit; carotid pulses are 2 + bilaterally Respiratory: chest is bilaterally symmetric, lungs clear to auscultation Cardiovascular: regular rate-rhythm, S1 and S2; No diastolic murmur, No systolic murmur Gastrointestinal: soft, audible bowel sounds; No spleenomegaly Rectal: deferred Extremities: normal range of motion, non-tender, normal inspection; No clubbing, No cyanosis; no lower extremity edema bilateral; No significant edema Neurologic/Psychiatric: no motor/sensory deficits, alert, normal mood/affect, oriented x 3, power is 5/5 both on sides Skin: normal color, warm/dry; No rash, No ulcerations Data Review Labs Laboratory Tests 01/16/20 05:10: White Blood Count 9.2, Red Blood Count 4.67, Hemoglobin 13.3, Hematocrit 43, Mean Corpuscular Volume 91, Mean Corpuscular Hemoglobin 29, Mean Corpuscular Hemoglobin Concent 31L, Red Cell Distribution Width 14.4, Platelet Count 355, Mean Platelet Volume 9.1, Neutrophils (%) (Auto) 50, Lymphocytes (%) (Auto) 38, Monocytes (%) (Auto) 8, Eosinophils (%) (Auto) 3, Basophils (%) (Auto) 0, Neutrophils # (Auto) 4.6, Lymphocytes # (Auto) 3.5, Monocytes # (Auto) 0.8, Eosinophils # (Auto) 0.3, Basophils # (Auto) 0.0, Sodium Level 138, Potassium Level 4.1, Chloride Level 101, Carbon Dioxide Level 24, Anion Gap 13, Blood Urea Nitrogen 16, Creatinine 0.98, Estimat Glomerular Filtration Rate 59, BUN/Cr eatinine Ratio 16, Glucose Level 101, Calcium Level 9.4, Corrected Calcium 9.5, Total Bilirubin 0.2, Aspartate Amino Transf (AST/SGOT) 21, Alanine Aminotransferase (ALT/SGPT) 24, Alkaline Phosphatase 66, Total Protein 7.3, Albumin 3.9 Microbiology 01/14/20 Urine Culture - Final, Complete 3 or more isolates ECG Impression ECG Initial ECG Rhythm: Normal Sinus Initial ECG Impression: Nonspecific Changes A/P-Cardiology Assessment/Admission Diagnosis Chest pain, shortness of breath, UTI Plan Chest pain, first set of troponin negative. We will repeat 2 further sets. Echocardiogram. Patient does have history of diabetes therefore high risk for CAD. Continue aspirin, give Plavix 300 mg times one. Shortness of breath, no florid CHF. BNP mildly elevated. We will do an echocardiogram. Diabetes, deferred to the primary team. Thank you for your consultation. Please call me if you have any questions. Valorie Powell MD, FACP, FACC, FSCAI, FHRS, CCDS Interventional Cardiology Cardiac Electrophysiology Vascular Medicine and Endovascular Interventions Clinical Quality Measures DVT/VTE Risk/Contraindication: Risk Factor Score Per Nursin RFS Level Per Nursing on Admit: 4+=Very High Reginald POWELL MD Jan 14, 2020 14:35
[2020-01-14] MEDS ORDERED: CLOPIDOGREL 300 MG (PLAVIX) TABLET PO ONE (14:45)
[2020-01-14 16:08] VITALS: BP 117/76
[2020-01-14 20:11] VITALS: BP 106/67
[2020-01-14] MEDS: MONTELUKAST 10 MG (SINGULAIR) TAB PO SCH (21:26)
[2020-01-14] MEDS: LITHIUM CARBONATE 300 MG TABLET PO SCH (21:26)
[2020-01-14] MEDS: APIXABAN 5 MG (ELIQUIS) TABLET PO SCH (21:26)
[2020-01-14] MEDS: DIAZEPAM 5 MG (VALIUM) TABLET PO SCH (21:26)
[2020-01-14] MEDS: GABAPENTIN 300 MG (NEURONTIN) CAP PO SCH (21:26)
[2020-01-14] MEDS: traZODone 100 MG (DESYREL) TAB PO PRN (21:26)
[2020-01-14] MEDS: buPROPion 100 MG (WELLBUTRIN) TAB PO SCH (21:26)
[2020-01-14] MEDS: AMITRIPTYLINE 25 MG (ELAVIL) TAB PO SCH (21:26)
[2020-01-14] MEDS: PREGABALIN 150 MG (LYRICA) CAPSULE PO SCH (21:26)
[2020-01-14] MEDS: CYCLOBENZAPRINE 10 MG (FLEXERIL) TAB PO SCH (21:27)
[2020-01-14] MEDS: SENNA W/DOCUSATE (SENOKOT S) TABLET PO SCH (21:27)
[2020-01-15] VITALS (7 sets, daily range): BP systolic 96–131; BP diastolic 62–84
[2020-01-15] MEDS: NS IV 1000 ML 1,000 ML IV SCH (06:01)
[2020-01-15 07:35] LABS: BASOPHILS % (AUTO) 0 % (0-10); EOSINOPHILS # (AUTO) 0.1 10^3/uL (0.0-0.3); EOSINOPHILS % (AUTO) 1 % (0-10); HEMATOCRIT 37 % (35-52); HEMOGLOBIN 11.5 G/DL (11.5-16.0); LYMPHOCYTES # (AUTO) 3.9 X 10^3 (1.0-4.0); LYMPHOCYTES % (AUTO) 37 % (12-44); MEAN CORPUSCULAR HEMOGLOBIN 29 PG (25-34); MEAN CORPUSCULAR HGB CONC 31 G/DL (32-36); MEAN CORPUSCULAR VOLUME 91 FL (80-99); MONOCYTES # (AUTO) 0.8 X 10^3 (0.0-1.0); MONOCYTES % (AUTO) 7 % (0-12); NEUTROPHILS # (AUTO) 5.8 X 10^3 (1.8-7.8); NEUTROPHILS % (AUTO) 55 % (42-75); PLATELET COUNT 326 10^3/uL (130-400); RED CELL DISTRIBUTION WIDTH 14.2 % (10.0-14.5); WHITE BLOOD COUNT 10.6 10^3/uL (4.3-11.0)
[2020-01-15 07:38] LABS: ALBUMIN 3.4 GM/DL (3.2-4.5)
[2020-01-15 07:39] LABS: CHLORIDE 107 MMOL/L (98-107); POTASSIUM 4.6 MMOL/L (3.6-5.0); SODIUM 139 MMOL/L (135-145)
[2020-01-15 07:40] LABS: CALCIUM 8.6 MG/DL (8.5-10.1)
[2020-01-15 07:41] LABS: GLUCOSE 91 MG/DL (70-105); TOTAL PROTEIN 6.6 GM/DL (6.4-8.2)
[2020-01-15 07:42] LABS: CARBON DIOXIDE 21 MMOL/L (21-32)
[2020-01-15 07:43] LABS: BILIRUBIN,TOTAL 0.3 MG/DL (0.1-1.0)
[2020-01-15 07:44] LABS: ALKALINE PHOSPHATASE 55 U/L (40-136)
[2020-01-15 07:45] LABS: CREATININE SERUM 0.86 MG/DL (0.60-1.30); GFR ESTIMATED > 60
[2020-01-15 07:46] LABS: BUN/CREATININE RATIO 20
[2020-01-15 07:48] LABS: ALANINE AMINOTRANSFERASE 20 U/L (0-55)
--- NOTE | 2020-01-15 08:00 | NUR ---
PATIENT WAS INSTRUCTED TO HAVE HOME MEDICATIONS BROUGHT TO HOSPITAL SINCE SHE WAS IN OBSERVATION STATUS.
[2020-01-15] MEDS ORDERED: NON-FORMULARY MEDICATION 1 EA EA (Cariprazine Hydrochloride (Vraylar) 3 MG) PO SCH (09:00)
--- NOTE | 2020-01-15 10:49 | Short Stay Summary-Hospitalist ---
History of Present Illness HPI/Chief Complaint CC: UTI with chest pain r/o ACS HPI: This is a 54yoWF clinic patient of [facility] known to me from frequent hospitalizations who has a long history of mental illness on [place] who presented to the [facility] ER with chest pressure and UTI. Patient had been unable to see Urology as recommended last 2 hospital stays due to insurance issues. She has recurrent UTI's but UCx rarely grows any specific organism except mixed rio. Patient has had negative troponins and Cardiology consulted who will perform EST tomorrow. Source: patient, RN/MD Exam Limitations: no limitations Date Seen 01/15/20 Time Seen by a Provider: 11:15 Attending Physician Chantal Desir DO [facility] Referring Physician Date of Admission Jan 14, 2020 at 13:20 Home Medications & Allergies Home Medications Reviewed patient Home Medication Reconciliation performed by pharmacy medication reconciliations radiation technician and/or nursing. Patients Allergies have been reviewed. Allergies Allergies Coded Allergies hydrocodone (Verified Allergy, Unknown, 12/05/19) latex (Verified Allergy, Unknown, 12/05/19) morphine (Verified Allergy, Unknown, 12/05/19) Uncoded Allergies PENICILLIN ( Allergy, Intermediate, 12/05/19) PLASTIC TAPE ( Allergy, Mild, 12/05/19) Past [id number]-[id number]-Msxiew Hx Past Med/Social Hx: Reviewed Nursing Past Med/Soc Hx, Reviewed and Corrections made Patient Social History Marrital Status: single Employed/Student: unemployed Alcohol Use: Denies Use Recreational Drug Use: No Smoking Status: Never a Smoker Former Smoker, Quit: Jul 06, 1993 Type Used: Cigarettes 2nd Hand Smoke Exposure: No Recent Foreign Travel: No Contact w/other who traveled: No Recent Hopitalizations: No Recent Infectious Disease Expo: No Immunizations Up To Date Date of Pneumonia Vaccine: May 06, 2019 Date of Influenza Vaccine: Apr 05, 2018 Seasonal Allergies Seasonal Allergies: No Past Medical History Surgeries: Appendectomy, Gallbladder, 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 Cardiac: Deep Vein Thrombosis, Hypertension 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 Genitourinary: Bladder Infection, Kidney Stones, UTI-Chronic Gastrointestinal: Hemorrhoids Musculoskeletal: Fibromyalgia Endocrine: Diabetes, Non-Insulin dep Psychosocial: Anxiety, Depression History of Blood Disorders: Yes (Factor 5) Family History Reviewed Nursing Family Hx Cardiovascular disease 19 MOTHER Colon cancer 19 FATHER G8 BROTHER G8 BROTHER Diabetes mellitus 19 MOTHER G8 BROTHER Review of Systems Constitutional: see HPI, malaise, weakness Cardiovascular: chest pain Genitourinary: dysuria, frequency Psychiatric/Neurological: Anxiety, Depressed Physical Exam Physical Exam Vital Signs Vital Signs - First Documented 01/14/20 09:59 Temp 36.4 Pulse 73 Resp 16 B/P (MAP) 134/96 (109) Pulse Ox 96 O2 Delivery Room Air Capillary Refill : Less Than 3 Seconds Height, Weight, BMI Height: 5'2.00" Weight: 180lbs. oz. 81.138504ju; 37.42 BMI Method:Estimated General Appearance: No Apparent Distress, WD/WN, Chronically ill Eyes: Bilateral Eye Normal Inspection, Bilateral Eye PERRL HEENT: PERRL/EOMI, Normal ENT Inspection, Pharynx Normal Neck: Full Range of Motion, Normal Inspection, Non Tender, Supple, Carotid Bruit Respiratory: Chest Non Tender, Lungs Clear, Normal Breath Sounds, No Accessory Muscle Use, No Respiratory Distress Cardiovascular: Regular Rate, Rhythm, No Edema, No Gallop, No JVD, No Murmur, Normal Peripheral Pulses Gastrointestinal: Normal Bowel Sounds, No Organomegaly, No Pulsatile Mass, Non Tender, Soft Back: Normal Inspection, No CVA Tenderness, No Vertebral Tenderness Extremity: Normal Capillary Refill, Normal Inspection, Normal Range of Motion, Non Tender, No Calf Tenderness, No Pedal Edema Neurologic/Psychiatric: Alert, Oriented x3, No Motor/Sensory Deficits, Normal 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 Short Stay Diagnosis Discharge Diagnosis-Short Stay Admission Diagnosis Assessment: Chest pain r/o ACS EST scheduled tomorrow appreciate Cardiology Dr Powell UTI recurrent in type Mental illness on [place] COPD Clotting disorder on OAC HTN Plan: Check labs in am IV abx Home meds Dr Powell consult EST tomorrow Final Discharge Diagnosis Assessment: Chest pain r/o ACS EST scheduled tomorrow appreciate Cardiology Dr Powell UTI recurrent in type Mental illness on [place] COPD Clotting disorder on OAC HTN Plan: Check labs in am IV abx Home meds Dr Powell consult EST tomorrow Conclusion Plan Plan: Check labs in am IV abx Home meds Dr Powell consult EST tomorrow Diagnosis/Problems Diagnosis/Problems (1) Other chest pain Status: Acute (2) Acute cystitis without hematuria Status: Acute Clinical Quality Measures DVT/VTE Risk/Contraindication: Risk Factor Score Per Nursin RFS Level Per Nursing on Admit: 4+=Very High CHANTAL DESIR DO Jan 15, 2020 10:49
[2020-01-15] MEDS: APIXABAN 5 MG (ELIQUIS) TABLET PO SCH ×2 (10:51→22:02)
[2020-01-15] MEDS: CYCLOBENZAPRINE 10 MG (FLEXERIL) TAB PO SCH ×2 (10:51→22:02)
[2020-01-15] MEDS: PREGABALIN 150 MG (LYRICA) CAPSULE PO SCH ×2 (10:51→22:01)
[2020-01-15] MEDS: buPROPion 100 MG (WELLBUTRIN) TAB PO SCH ×2 (10:51→22:00)
[2020-01-15] MEDS: SENNA W/DOCUSATE (SENOKOT S) TABLET PO SCH ×2 (10:51→22:01)
[2020-01-15] MEDS: LITHIUM CARBONATE 300 MG TABLET PO SCH ×2 (10:52→22:02)
[2020-01-15] MEDS: GABAPENTIN 300 MG (NEURONTIN) CAP PO SCH ×2 (10:52→22:00)
[2020-01-15] MEDS ORDERED: cefTRIAXone FOR IV USE 2,000 MG in WATER (STERILE) FOR INJECTION 20 ML IV SCH (11:00)
[2020-01-15] MEDS ORDERED: RT-ALBUINH IH (11:41)
[2020-01-15] MEDS ORDERED: MOMETASONE FUROATE IH PRN (11:45)
--- NOTE | 2020-01-15 11:54 | NUR ---
PATIENT KEEP NPO UNTIL FR WELLS SEEN PATIENT, THIS NURSE CALLED DR WELLS AND WAS INSTRUCTED PATIENT COULD EAT, AM MED GIVEN, EARLY LUNCH TRAY GIVEN.
[2020-01-15] MEDS ORDERED: RT-ALBUTEROL INHALER HFA (VENTOLIN HFA) 18 GM IH PRN (12:00)
[2020-01-15] MEDS ORDERED: FLUTICASONE 220 MCG INHALER (FLOVENT) 12 GM INH PRN (12:15)
[2020-01-15] MEDS: TRIAMTERENE/HCTZ 75-50 (MAXZIDE,DYAZIDE) TABLET PO SCH (15:09)
--- NOTE | 2020-01-15 15:11 | Cardiology Progress Note ---
Cardiology SOAP Progress Note Subjective: still complains of mild chest discomfort. Objective: I&O/Vital Signs 01/16/20 01/16/20 01/16/20 01/16/20 04:40 06:31 07:45 08:34 Temp 36.4 36.1 Pulse 77 75 78 Resp 18 20 B/P (MAP) 105/59 (74) 107/64 (78) Pulse Ox 94 92 O2 Delivery Room Air Room Air Room Air 01/16/20 13:14 Temp 36.5 Pulse 86 Resp 20 B/P (MAP) 157/89 (111) Pulse Ox 96 O2 Delivery Room Air 01/16/20 00:00 Intake Total 1700 ml Output Total 2650 ml Balance -950 ml Weight (Pounds): 180 Weight (Calculated Kilograms): [id number] Constitutional: AAO x 3 Respiratory: chest is bilaterally symmetric, lungs clear to auscultation Cardiovascular: regular rate-rhythm, S1 and S2 Gastrointestional: soft, audible bowel sounds Extremities: normal range of motion, non-tender, normal inspection, no lower extremity edema bilateral Neurologic/Psychiatric: no motor/sensory deficits, alert, normal mood/affect, oriented x 3 Skin: normal color Results/Procedures: Labs Laboratory Tests 01/16/20 05:10: White Blood Count 9.2, Red Blood Count 4.67, Hemoglobin 13.3, Hematocrit 43, Mean Corpuscular Volume 91, Mean Corpuscular Hemoglobin 29, Mean Corpuscular Hemoglobin Concent 31L, Red Cell Distribution Width 14.4, Platelet Count 355, Mean Platelet Volume 9.1, Neutrophils (%) (Auto) 50, Lymphocytes (%) (Auto) 38, Monocytes (%) (Auto) 8, Eosinophils (%) (Auto) 3, Basophils (%) (Auto) 0, Neutrophils # (Auto) 4.6, Lymphocytes # (Auto) 3.5, Monocytes # (Auto) 0.8, Eosinophils # (Auto) 0.3, Basophils # (Auto) 0.0, Sodium Level 138, Potassium Level 4.1, Chloride Level 101, Carbon Dioxide Level 24, Anion Gap 13, Blood Urea Nitrogen 16, Creatinine 0.98, Estimat Glomerular Filtration Rate 59, BUN/Creatinine Ratio 16, Glucose Level 101, Calcium Level 9.4, Corrected Calcium 9.5, Total Bilirubin 0.2, Aspartate Amino Transf (AST/SGOT) 21, Alanine Aminotransferase (ALT/SGPT) 24, Alkaline Phosphatase 66, Total Protein 7.3, Albumin 3.9 Microbiology 01/14/20 Urine Culture - Final, Complete 3 or more isolates A/P: Assessment/Dx: Chest pain, shortness of breath, UTI Plan: Chest pain, serial troponin negative. Patient does have history of diabetes therefore high risk for CAD. Continue aspirin. Nuclear stress test in the morning. Shortness of breath, no florid CHF. BNP mildly elevated. Echocardiogram showed normal LV function with no significant regional wall motion abnormalities. No valvular heart disease. Diabetes, deferred to the primary team. UTI defer to the primary team. Thank you for your consultation. Please call me if you have any questions. Valorie Powell MD, FACP, FACC, FSCAI, FHRS, CCDS Interventional Cardiology Cardiac Electrophysiology Vascular Medicine and Endovascular Interventions Reginald POWELL MD Jan 15, 2020 15:11
[2020-01-15] MEDS ORDERED: FUROSEMIDE 20 MG (LASIX) TAB PO ONE (15:15)
[2020-01-15] MEDS ORDERED: REGADENOSON 0.4 MG/5 ML SYR (LEXISCAN) IV ONE (15:30)
[2020-01-15] MEDS: MONTELUKAST 10 MG (SINGULAIR) TAB PO SCH (22:00)
[2020-01-15] MEDS: DIAZEPAM 5 MG (VALIUM) TABLET PO SCH (22:00)
[2020-01-15] MEDS: traZODone 100 MG (DESYREL) TAB PO PRN (22:01)
[2020-01-15] MEDS: AMITRIPTYLINE 25 MG (ELAVIL) TAB PO SCH (22:02)
[2020-01-16 04:40] VITALS: BP 105/59
[2020-01-16 05:41] LABS: BASOPHILS % (AUTO) 0 % (0-10); EOSINOPHILS # (AUTO) 0.3 10^3/uL (0.0-0.3); EOSINOPHILS % (AUTO) 3 % (0-10); HEMATOCRIT 43 % (35-52); HEMOGLOBIN 13.3 G/DL (11.5-16.0); LYMPHOCYTES # (AUTO) 3.5 X 10^3 (1.0-4.0); LYMPHOCYTES % (AUTO) 38 % (12-44); MEAN CORPUSCULAR HEMOGLOBIN 29 PG (25-34); MEAN CORPUSCULAR HGB CONC 31 G/DL (32-36); MEAN CORPUSCULAR VOLUME 91 FL (80-99); MEAN PLATELET VOLUME 9.1 FL (7.4-10.4); MONOCYTES # (AUTO) 0.8 X 10^3 (0.0-1.0); MONOCYTES % (AUTO) 8 % (0-12); NEUTROPHILS # (AUTO) 4.6 X 10^3 (1.8-7.8); NEUTROPHILS % (AUTO) 50 % (42-75); PLATELET COUNT 355 10^3/uL (130-400); RED CELL DISTRIBUTION WIDTH 14.4 % (10.0-14.5); WHITE BLOOD COUNT 9.2 10^3/uL (4.3-11.0)
[2020-01-16 05:53] LABS: ALBUMIN 3.9 GM/DL (3.2-4.5); POTASSIUM 4.1 MMOL/L (3.6-5.0)
[2020-01-16 05:54] LABS: CALCIUM 9.4 MG/DL (8.5-10.1)
[2020-01-16 05:56] LABS: TOTAL PROTEIN 7.3 GM/DL (6.4-8.2)
[2020-01-16 05:57] LABS: BILIRUBIN,TOTAL 0.2 MG/DL (0.1-1.0)
[2020-01-16 05:59] LABS: CREATININE SERUM 0.98 MG/DL (0.60-1.30)
[2020-01-16 08:34] VITALS: BP 107/64
--- NOTE | 2020-01-16 10:46 | Discharge Summary ---
Diagnosis/Chief Complaint Date of Admission Jan 14, 2020 at 13:20 Date of Discharge Discharge Date: Jan 16, 2020 Discharge Summary Discharge Physical Examination Allergies: Coded Allergies: hydrocodone (Verified Allergy, Unknown, 12/05/19) latex (Verified Allergy, Unknown, 12/05/19) morphine (Verified Allergy, Unknown, 12/05/19) Uncoded Allergies: PENICILLIN (Allergy, Intermediate, 12/05/19) PLASTIC TAPE (Allergy, Mild, 12/05/19) Vitals & I&Os Vital Signs Date Time Temp Pulse Resp B/P (MAP) Pulse Ox O2 Delivery O2 Flow Rate FiO2 01/16/20 17:20 01/16/20 16:36 37.0 82 18 97 Room Air 01/15/20 19:00 21 Hospital Course Was the Problem List Reviewed?: Yes Discharge Diagnosis: Chest pain with normal stress test, Recurrent abnormal urine test with contaminated culture, longstanding mental illness Labs (last 24 hrs) Laboratory Tests 01/14/20 00:00: Troponin I < 0.028 01/14/20 10:10: Troponin I < 0.30, White Blood Count 16.9H, Red Blood Count 4.57, Hemoglobin 13.2, Hematocrit 41, Mean Corpuscular Volume 90, Mean Corpuscular Hemoglobin 29, Mean Corpuscular Hemoglobin Concent 32, Red Cell Distribution Width 13.7, Platelet Count 379, Mean Platelet Volume 9.1, Neutrophils (%) (Auto) 79H, Lymphocytes (%) (Auto) 14, Monocytes (%) (Auto) 7, Eosinophils (%) (Auto) 0, Basophils (%) (Auto) 0, Neutrophils # (Auto) 13.3H, Lymphocytes # (Auto) 2.4, Monocytes # (Auto) 1.2H, Eosinophils # (Auto) 0.0, Basophils # (Auto) 0.0, Neutrophils % (Manual) 76, Lymphocytes % (Manual) 14, Monocytes % (Manual) 6, Eosinophils % (Manual) 0, Basophils % (Manual) 0, Band Neutrophils 4, Blood Morphology Comment NORMAL, Prothrombin Time 14.1, INR Comment 1.1, Activated Partial Thromboplast Time 30, Sodium Level 138, Potassium Level 4.2, Chloride Level 102, Carbon Dioxide Level 22, Anion Gap 14, Blood Urea Nitrogen 13, Creatinine 0.59L, Estimat Glomerular Filtration Rate > 60, BUN/Creatinine Ratio 22, Glucose Level 131H, Calcium Level 10.0, Corrected Calcium 9.7, Total Bilirubin 0.3, Aspartate Amino Transf (AST/SGOT) 15, Alanine Aminotransferase (ALT/SGPT) 21, Alkaline Phosphatase 80, Pro-B-Type Natriuretic Peptide 444.4H, Total Protein 7.8, Albumin 4.4, [place] Level 0.2L 01/14/20 10:20: D-Dimer 0.42, Urine Color YELLOW, Urine Clarity SL CLOUDY, Urine pH 7.5, Urine Specific [place] 1.015L, Urine Protein NEGATIVE, Urine Glucose (UA) NEGATIVE, Urine Ketones NEGATIVE, Urine Nitrite NEGATIVE, Urine Bilirubin NEGATIVE, Urine Urobilinogen 0.2, Urine Leukocyte Esterase 3+H, Urine RBC (Auto) 1+H, Urine RBC 2-5H, Urine WBC >100H, Urine Squamous Epithelial Cells 2-5, Urine Crystals NONE, Urine Bacteria FEWH, Urine Casts NONE, Urine Mucus NEGATIVE, Urine Culture Indicated YES 01/14/20 11:14: Urine Color YELLOW, Urine Clarity CLEAR, Urine pH 7.0, Urine Specific [place] 1.010L, Urine Protein NEGATIVE, Urine Glucose (UA) NEGATIVE, Urine Ketones NEGATIVE, Urine Nitrite NEGATIVE, Urine Bilirubin NEGATIVE, Urine Urobilinogen 0.2, Urine Leukocyte Esterase NEGATIVE, Urine RBC (Auto) NEGATIVE, Urine RBC NONE, Urine WBC RARE, Urine Crystals NONE, Urine Bacteria NONE, Urine Casts NO NE, Urine Mucus NEGATIVE, Urine Culture Indicated NO 01/14/20 15:21: B-Type Natriuretic Peptide 44.8 01/14/20 17:54: Troponin I < 0.028 01/15/20 07:00: Troponin I < 0.028, White Blood Count 10.6, Red Blood Count 4.04L, Hemoglobin 11.5, Hematocrit 37, Mean Corpuscular Volume 91, Mean Corpuscular Hemoglobin 29, Mean Corpuscular Hemoglobin Concent 31L, Red Cell Distribution Width 14.2, Platelet Count 326, Mean Platelet Volume 10.0, Neutrophils (%) (Auto) 55, Lymphocytes (%) (Auto) 37, Monocytes (%) (Auto) 7, Eosinophils (%) (Auto) 1, Basophils (%) (Auto) 0, Neutrophils # (Auto) 5.8, Lymphocytes # (Auto) 3.9, Monocytes # (Auto) 0.8, Eosinophils # (Auto) 0.1, Basophils # (Auto) 0.0, Sodium Level 139, Potassium Level 4.6, Chloride Level 107, Carbon Dioxide Level 21, Anion Gap 11, Blood Urea Nitrogen 17, Creatinine 0.86, Estimat Glomerular Filtration Rate > 60, BUN/Creatinine Ratio 20, Glucose Level 91, Calcium Level 8.6, Corrected Calcium 9.1, Total Bilirubin 0.3, Aspartate Amino Transf (AST/SGOT) 24, Alanine Aminotransferase (ALT/SGPT) 20, Alkaline Phosphatase 55, Total Protein 6.6, Albumin 3.4 01/16/20 05:10: White Blood Count 9.2, Red Blood Count 4.67, Hemoglobin 13.3, Hematocrit 43, Mean Corpuscular Volume 91, Mean Corpuscular Hemoglobin 29, Mean Corpuscular Hemoglobin Concent 31L, Red Cell Distribution Width 14.4, Platelet Count 355, Mean Platelet Volume 9.1, Neutrophils (%) (Auto) 50, Lymphocytes (%) (Auto) 38, Monocytes (%) (Auto) 8, Eosinophils (%) (Auto) 3, Basophils (%) (Auto) 0, Neutrophils # (Auto) 4.6, Lymphocytes # (Auto) 3.5, Monocytes # (Auto) 0.8, Eosinophils # (Auto) 0.3, Basophils # (Auto) 0.0, Sodium Level 138, Potassium Level 4.1, Chloride Level 101, Carbon Dioxide Level 24, Anion Gap 13, Blood Urea Nitrogen 16, Creatinine 0.98, Estimat Glomerular Filtration Rate 59, BUN/Creatinine Ratio 16, Glucose Level 101, Calcium Level 9.4, Corrected Calcium 9.5, Total Bilirubin 0.2, Aspartate Amino Transf (AST/SGOT) 21, Alanine Aminotransferase (ALT/SGPT) 24, Alkaline Phosphatase 66, Total Protein 7.3, Albumin 3.9 Microbiology 01/14/20 Urine Culture - Final, Complete 3 or more isolates Pending Labs Microbiology Date/Time Source Procedure Growth Status 01/14/20 10:20 Urine Clean Catch Urine Culture - Final 3 or more isolates Complete Laboratory Tests 01/14/20 00:00: Troponin I < 0.028 01/14/20 10:10: Troponin I < 0.30, White Blood Count 16.9, Red Blood Count 4.57, Hemoglobin 13.2, Hematocrit 41, Mean Corpuscular Volume 90, Mean Corpuscular Hemoglobin 29, Mean Corpuscular Hemoglobin Concent 32, Red Cell Distribution Width 13.7, Platelet Count 379, Mean Platelet Volume 9.1, Neutrophils (%) (Auto) 79, Lymphocytes (%) (Auto) 14, Monocytes (%) (Auto) 7, Eosinophils (%) (Auto) 0, Basophils (%) (Auto) 0, Neutrophils # (Auto) 13.3, Lymphocytes # (Auto) 2.4, M onocytes # (Auto) 1.2, Eosinophils # (Auto) 0.0, Basophils # (Auto) 0.0, Neutrophils % (Manual) 76, Lymphocytes % (Manual) 14, Monocytes % (Manual) 6, Eosinophils % (Manual) 0, Basophils % (Manual) 0, Band Neutrophils 4, Blood Morphology Comment NORMAL, Prothrombin Time 14.1, INR Comment 1.1, Activated Partial Thromboplast Time 30, Sodium Level 138, Potassium Level 4.2, Chloride Le basilia 102, Carbon Dioxide Level 22, Anion Gap 14, Blood Urea Nitrogen 13, Creatinine 0.59, Estimat Glomerular Filtration Rate > 60, BUN/Creatinine Ratio 22, Glucose Level 131, Calcium Level 10.0, Corrected Calcium 9.7, Total Bilirubin 0.3, Aspartate Amino Transf (AST/SGOT) 15, Alanine Aminotransferase (ALT/SGPT) 21, Alkaline Phosphatase 80, Pro-B-Type Natriuretic Peptide 444.4, Total Protein 7.8, Albumin 4.4, [place] Level 0.2 01/14/20 10:20: D-Dimer 0.42, Urine Color YELLOW, Urine Clarity SL CLOUDY, Urine pH 7.5, Urine Specific [place] 1.015, Urine Protein NEGATIVE, Urine Glucose (UA) NEGATIVE, Urine Ketones NEGATIVE, Urine Nitrite NEGATIVE, Urine Bilirubin NEGATIVE, Urine Urobilinogen 0.2, Urine Leukocyte Esterase 3+, Urine RBC (Auto) 1+, Urine RBC 2- 5, Urine WBC >100, Urine Squamous Epithelial Cells 2-5, Urine Crystals NONE, Urine Bacteria FEW, Urine Casts NONE, Urine Mucus NEGATIVE, Urine Culture Indicated YES 01/14/20 11:14: Urine Color YELLOW, Urine Clarity CLEAR, Urine pH 7.0, Urine Specific [place] 1.010, Urine Protein NEGATIVE, Urine Glucose (UA) NEGATIVE, Urine Ketones NEGATIVE, Urine Nitrite NEGATIVE, Urine Bilirubin NEGATIVE, Urine Urobilinogen 0.2, Urine Leukocyte Esterase NEGATIVE, Urine RBC (Auto) NEGATIVE, Urine RBC NONE, Urine WBC RARE, Urine Crystals NONE, Urine Bacteria NONE, Urine Casts NONE, Urine Mucus NEGATIVE, Urine Culture Indicated NO 01/14/20 15:21: B-Type Natriuretic Peptide 44.8 01/14/20 17:54: Troponin I < 0.028 01/15/20 07:00: Troponin I < 0.028, White Blood Count 10.6, Red Blood Count 4.04, Hemoglobin 11.5, Hematocrit 37, Mean Corpuscular Volume 91, Mean Corpuscular Hemoglobin 29, Mean Corpuscular Hemoglobin Concent 31, Red Cell Distribution Width 14.2, Platelet Count 326, Mean Platelet Volume 10.0, Neutrophils (%) (Auto) 55, Lymphocytes (%) (Auto) 37, Monocytes (%) (Auto) 7, Eosinophils (%) (Auto) 1, Basophils (%) (Auto) 0, Neutrophils # (Auto) 5.8, Lymphocytes # (Auto) 3.9, Monocytes # (Auto) 0.8, Eosinophils # (Auto) 0.1, Basophils # (Auto) 0.0, Sodium Level 139, Potassium Level 4.6, Chloride Level 107, Carbon Dioxide Level 21, Anion Gap 11, Blood Urea Nitrogen 17, Creatinine 0.86, Estimat Glomerular Filtration Rate > 60, BUN/Creatinine Ratio 20, Glucose Level 91, Calcium Level 8.6, Corrected Calcium 9.1, Total Bilirubin 0.3, Aspartate Amino Transf (AST/SG OT) 24, Alanine Aminotransferase (ALT/SGPT) 20, Alkaline Phosphatase 55, Total Protein 6.6, Albumin 3.4 01/16/20 05:10: White Blood Count 9.2, Red Blood Count 4.67, Hemoglobin 13.3, Hematocrit 43, Mean Corpuscular Volume 91, Mean Corpuscular Hemoglobin 29, Mean Corpuscular Hemoglobin Concent 31, Red Cell Distribution Width 14.4, Platelet Count 355, Mean Platelet Volume 9.1, Neutrophils (%) (Auto) 50, Lymphocytes (%) (Auto) 38, Monocytes (%) (Auto) 8, Eosinophils (%) (Auto) 3, Basophils (%) (Auto) 0, Neutrophils # (Auto) 4.6, Lymphocytes # (Auto) 3.5, Monocytes # (Auto) 0.8, Eosinophils # (Auto) 0.3, Basophils # (Auto) 0.0, Sodium Level 138, Potassium Level 4.1, Chloride Level 101, Carbon Dioxide Level 24, Anion Gap 13, Blood Urea Nitrogen 16, Creatinine 0.98, Estimat Glomerular Filtration Rate 59, BUN/Creatinine Ratio 16, Glucose Level 101, Calcium Level 9.4, Corrected Calcium 9.5, Total Bilirubin 0.2, Aspartate Amino Transf (AST/SGOT) 21, Alanine Aminotransferase (ALT/SGPT) 24, Alkaline Phosphatase 66, Total Protein 7.3, Albumin 3.9 Discharge Home Medications: Active Scripts Active Probiotic (L.acidoph & Paracasei,B.lactis) 1 Each Capsule 1 Each PO BID 14 Days Reported Azo Cranberry Tablet (Cranberry Conc/C/Bacill Coag) 1 Each Tablet 1 Each PO DAILY Triamterene-Hctz 75-50 mg Tab (Triamterene/Hydrochlorothiazid) 1 Each Tablet 1 Each PO HS Metformin HCl 500 Mg Tablet 500 Mg PO DAILY Lisinopril 10 Mg Tablet 10 Mg PO DAILY Estrace Tablet (Estradiol) 1 Mg Tablet 1 Mg PO HS Ibuprofen 200 Mg Tablet 400 Mg PO Q8H PRN Fluticasone Propionate 16 Gm Dawson.susp 1 Dawson NSEACH DAILY PRN Narcan (Naloxone HCl) 4 Mg Dawson 1 Dawson NS UD PRN Zyrtec (Cetirizine HCl) 10 Mg Tablet 10 Mg PO DAILY Tramadol HCl 50 Mg Tablet 50-100 Mg PO TID PRN Asmanex (Mometasone Furoate) 110 Mcg Aer.pow.ba 2 Puff IH BID PRN Pregabalin 150 Mg Capsule 150 Mg PO BID Eliquis (Apixaban) 5 Mg Tablet 5 Mg PO BID Fish Oil 1,000 mg Softgel (Burns-3/Dha/Epa/Fish Oil) 1 Each Capsule 1 Each PO DAILY Bupropion HCl 100 Mg Tablet 100 Mg PO BID Amitriptyline HCl 25 Mg Tablet 25 Mg PO HS Montelukast Sodium 10 Mg Tablet 10 Mg PO HS Potassium Chloride 10 Meq Tab.er.prt 10 Meq PO BID WITH MEALS Diazepam 5 Mg Tablet 5 Mg PO HS Cyclobenzaprine HCl 10 Mg Tablet 10 Mg PO BID Trazodone HCl 100 Mg Tablet 100-200 Mg PO HS PRN TAKES 1 TO 2 (100MG) TABS AT BEDTIME [place] Carbonate 300 Mg Capsule 300 Mg PO DAILY [place] Carbonate 300 Mg Capsule 600 Mg PO HS TAKES 2 (300MG) CAPS AT BEDTIME Vraylar (Cariprazine Hydrochloride) 3 Mg Capsule 3 Mg PO DAILY Iprat-Albut 0.5-3(2.5) mg/3 ml (Ipratropium/Albuterol Sulfate) 3 Ml Ampul.neb 1 Vial NEB Q6H PRN Proair Hfa (Albuterol Sulfate) 1 Puff Puff 2 Puff PO Q4H PRN Neurontin (Gabapentin) 300 Mg Capsule 600 Mg PO HS TAKES 2 (300NG) TABS Neurontin (Gabapentin) 300 Mg Capsule 300 Mg PO DAILY Instructions to patient/family Please see electronic discharge instructions given to patient. [facility] in 1 week Diagnosis/Problems Diagnosis/Problems (1) Other chest pain Status: Acute (2) Acute cystitis without hematuria Status: Acute Clinical Quality Measures DVT/VTE Risk/Contraindication: Risk Factor Score Per Nursin RFS Level Per Nursing on Admit: 4+=Very High DARION VERAS DO Jan 16, 2020 10:46
[2020-01-16] MEDS ORDERED: FLUT16SP22 NSEACH ×2 (11:06)
[2020-01-16] MEDS ORDERED: ESTR1TAB27 PO ×2 (11:06)
[2020-01-16] MEDS ORDERED: METF-397 PO ×2 (11:06)
[2020-01-16] MEDS ORDERED: TRIA1TAB5 PO ×2 (11:06)
[2020-01-16] MEDS ORDERED: NALO4SPR NS ×2 (11:06)
[2020-01-16] MEDS ORDERED: TRAM50TA3 PO ×2 (11:06)
[2020-01-16] MEDS ORDERED: LISI10TA2 PO ×2 (11:06)
[2020-01-16] MEDS ORDERED: IBUP-2473 PO ×2 (11:06)
[2020-01-16] MEDS ORDERED: CETI10TA21 PO ×2 (11:06)
[2020-01-16] MEDS ORDERED: CRAN1TAB4 PO ×2 (11:10)
--- NOTE | 2020-01-16 11:11 | NUR ---
I SPOKE WITH THE PATIENT AND REVIEWED THE EXTERNAL MED HISTORY TO COMPLETE THE MED REC. ESTRADIOL, IBUPROFEN, LISINOPRIL, METFORMIN AND TRIAMTERENE/HCTZ WERE ALL DISCONTINUED ON 12/06. BUT THE EXTERNAL MED HISTORY IS SHOWING THAT THEY WERE ALL LAST FILLED ON 01/02. THE PATIENT STATES THAT SHE WASN'T AWARE OF THE DISCONTINUATION OF THESE MEDS AND ALSO STATES THAT SHE DOESN'T FEEL COMFORTABLE STOPPING THESE MEDS, BUT WOULDN'T MIND NOT TAKING IBUPROFEN. OTC: FISH OIL IBUPROFEN AZO
--- NOTE | 2020-01-16 11:12 | NUR ---
Patient off floor at this time for stress test
[2020-01-16] MEDS ORDERED: CATHETER FLUSH 10 ML SYR IV PRN (11:30)
[2020-01-16] MEDS ORDERED: REGADENOSON 0.4 MG/5 ML SYR (LEXISCAN) IV ONE (12:12)
--- NOTE | 2020-01-16 12:34 | Discharge Summary ---
Discharge Summary Hospital Course Was the Problem List Reviewed?: Yes Problems/Dx: (1) Other chest pain Status: Acute (2) Acute cystitis without hematuria Status: Acute Hospital Course Date of Admission: Jan 14, 2020 at 13:20 Admission Diagnosis : Family Physician/Provider: Katie Rios Aprn Date of Discharge: 01/16/20 Discharge Diagnosis: Chest pain with normal stress test, recurrent abnormal urine test with contaminated culture, longstanding mental illness Hospital Course: Hospital Course: Pt had a brief hospital course. She was admitted for chest pain and abnormal UA although her previous urine cultures have all had three or more isolates. She was placed on Rocephin empirically and she did receive three doses of that. Urine culture at time of discharge showed 3 or more isolates once again. She had not seen urology as recommended last time because of insurance difficulties. She underwent a stress test by cardiology. No issues were assessed to have any indication of cardiac ischemia so she was DC home in improved condition and all medications were restarted at DC. Labs and Pending Lab Test: Laboratory Tests 01/16/20 05:10: White Blood Count 9.2, Red Blood Count 4.67, Hemoglobin 13.3, Hematocrit 43, Mean Corpuscular Volume 91, Mean Corpuscular Hemoglobin 29, Mean Corpuscular Hemoglobin Concent 31L, Red Cell Distribution Width 14.4, Platelet Count 355, Mean Platelet Volume 9.1, Neutrophils (%) (Auto) 50, Lymphocytes (%) (Auto) 38, Monocytes (%) (Auto) 8, Eosinophils (%) (Auto) 3, Basophils (%) (Auto) 0, Neutrophils # (Auto) 4.6, Lymphocytes # (Auto) 3.5, Monocytes # (Auto) 0.8, Eosinophils # (Auto) 0.3, Basophils # (Auto) 0.0, Sodium Level 138, Potassium Level 4.1, Chloride Level 101, Carbon Dioxide Level 24, Anion Gap 13, Blood Urea Nitrogen 16, Creatinine 0.98, Estimat Glomerular Filtration Rate 59, BUN/Creatinine Ratio 16, Glucose Level 101, Calcium Level 9.4, Corrected Calcium 9.5, Total Bilirubin 0.2, Aspartate Amino Transf (AST/SGOT) 21, Alanine Aminotransferase (ALT/SGPT) 24, Alkaline Phosphatase 66, Total Protein 7.3, Albumin 3.9 Microbiology 01/14/20 Urine Culture - Final, Complete 3 or more isolates Home Meds Active Probiotic (L.acidoph & Paracasei,B.lactis) 1 Each Capsule 1 Each PO BID 14 Days Reported Azo Cranberry Tablet (Cranberry Conc/C/Bacill Coag) 1 Each Tablet 1 Each PO DAILY Triamterene-Hctz 75-50 mg Tab (Triamterene/Hydrochlorothiazid) 1 Each Tablet 1 Each PO HS Metformin HCl 500 Mg Tablet 500 Mg PO DAILY Lisinopril 10 Mg Tablet 10 Mg PO DAILY Estrace Tablet (Estradiol) 1 Mg Tablet 1 Mg PO HS Ibuprofen 200 Mg Tablet 400 Mg PO Q8H PRN Fluticasone Propionate 16 Gm [place].susp 1 [place] NSEACH DAILY PRN Narcan (Naloxone HCl) 4 Mg [place] 1 [place] NS UD PRN Zyrtec (Cetirizine HCl) 10 Mg Tablet 10 Mg PO DAILY Tramadol HCl 50 Mg Tablet 50-100 Mg PO TID PRN Asmanex (Mometasone Furoate) 110 Mcg Aer.pow.ba 2 Puff IH BID PRN Pregabalin 150 Mg Capsule 150 Mg PO BID Eliquis (Apixaban) 5 Mg Tablet 5 Mg PO BID Fish Oil 1,000 mg Softgel ([place]-3/Dha/Epa/Fish Oil) 1 Each Capsule 1 Each PO DAILY Bupropion HCl 100 Mg Tablet 100 Mg PO BID Amitriptyline HCl 25 Mg Tablet 25 Mg PO HS Montelukast Sodium 10 Mg Tablet 10 Mg PO HS Potassium Chloride 10 Meq Tab.er.prt 10 Meq PO BID WITH MEALS Diazepam 5 Mg Tablet 5 Mg PO HS Cyclobenzaprine HCl 10 Mg Tablet 10 Mg PO BID Trazodone HCl 100 Mg Tablet 100-200 Mg PO HS PRN TAKES 1 TO 2 (100MG) TABS AT BEDTIME [place] Carbonate 300 Mg Capsule 300 Mg PO DAILY [place] Carbonate 300 Mg Capsule 600 Mg PO HS TAKES 2 (300MG) CAPS AT BEDTIME Vraylar (Cariprazine Hydrochloride) 3 Mg Capsule 3 Mg PO DAILY Iprat-Albut 0.5-3(2.5) mg/3 ml (Ipratropium/Albuterol Sulfate) 3 Ml Ampul.neb 1 Vial NEB Q6H PRN Proair Hfa (Albuterol Sulfate) 1 Puff Puff 2 Puff PO Q4H PRN Neurontin (Gabapentin) 300 Mg Capsule 600 Mg PO HS TAKES 2 (300NG) TABS Neurontin (Gabapentin) 300 Mg Capsule 300 Mg PO DAILY Assessment/Pt Instructions [facility] in 1 week Discharge Planning: <30 minutes discharge planning Discharge Instructions Discharge Diet: Regular Diet Activity as Tolerated: Yes Discharge Physical Examination Vital Signs Vital Signs Date Time Temp Pulse Resp B/P (MAP) Pulse Ox O2 Delivery O2 Flow Rate FiO2 01/16/20 08:34 36.1 78 20 107/64 (78) 92 Room Air 01/15/20 19:00 21 General Appearance: No Apparent Distress, WD/WN, Chronically ill Cardiovascular: Regular Rate, Rhythm Neurologic/Psychiatric: Alert, Oriented x3 Allergies: Coded Allergies: hydrocodone (Verified Allergy, Unknown, 12/05/19) latex (Verified Allergy, Unknown, 12/05/19) morphine (Verified Allergy, Unknown, 12/05/19) Uncoded Allergies: PENICILLIN (Allergy, Intermediate, 12/05/19) PLASTIC TAPE (Allergy, Mild, 12/05/19) Discharge Summary Date of Admission Jan 14, 2020 at 13:20 Date of Discharge Discharge Date: Jan 16, 2020 Admission Diagnosis Assessment: Chest pain r/o ACS EST scheduled tomorrow appreciate Cardiology Dr Powell UTI recurrent in type Mental illness on [place] COPD Clotting disorder on OAC HTN Plan: Check labs in am IV abx Home meds Dr Powell consult EST tomorrow Discharge Diagnosis Plan: Check labs in am IV abx Home meds Dr Powell consult EST tomorrow (1) Other chest pain Status: Acute (2) Acute cystitis without hematuria Status: Acute Clinical Quality Measures DVT/VTE Risk/Contraindication: Risk Factor Score Per Nursin RFS Level Per Nursing on Admit: 4+=Very High DARION VERAS DO Jan 16, 2020 12:34
[2020-01-16 13:14] VITALS: BP 157/89
--- NOTE | 2020-01-16 14:53 | Cardiology Progress Note ---
Cardiology SOAP Progress Note Subjective: still has mild chest pain. Objective: I&O/Vital Signs 01/16/20 01/16/20 01/16/20 01/16/20 04:40 06:31 07:45 08:34 Temp 36.4 36.1 Pulse 77 75 78 Resp 18 20 B/P (MAP) 105/59 (74) 107/64 (78) Pulse Ox 94 92 O2 Delivery Room Air Room Air Room Air 01/16/20 13:14 Temp 36.5 Pulse 86 Resp 20 B/P (MAP) 157/89 (111) Pulse Ox 96 O2 Delivery Room Air 01/16/20 00:00 Intake Total 1700 ml Output Total 2650 ml Balance -950 ml Weight (Pounds): 180 Weight (Calculated Kilograms): 81.748219 Constitutional: AAO x 3 Respiratory: chest is bilaterally symmetric, lungs clear to auscultation Cardiovascular: regular rate-rhythm, S1 and S2 Gastrointestional: soft, audible bowel sounds Extremities: normal range of motion, non-tender, normal inspection, no lower extremity edema bilateral Neurologic/Psychiatric: no motor/sensory deficits, alert, normal mood/affect, oriented x 3 Skin: normal color Results/Procedures: Labs Laboratory Tests 01/16/20 05:10: White Blood Count 9.2, Red Blood Count 4.67, Hemoglobin 13.3, Hematocrit 43, Mean Corpuscular Volume 91, Mean Corpuscular Hemoglobin 29, Mean Corpuscular Hemoglobin Concent 31L, Red Cell Distribution Width 14.4, Platelet Count 355, Mean Platelet Volume 9.1, Neutrophils (%) (Auto) 50, Lymphocytes (%) (Auto) 38, Monocytes (%) (Auto) 8, Eosinophils (%) (Auto) 3, Basophils (%) (Auto) 0, Neutrophils # (Auto) 4.6, Lymphocytes # (Auto) 3.5, Monocytes # (Auto) 0.8, Eosinophils # (Auto) 0.3, Basophils # (Auto) 0.0, Sodium Level 138, Potassium Level 4.1, Chloride Level 101, Carbon Dioxide Level 24, Anion Gap 13, Blood Urea Nitrogen 16, Creatinine 0.98, Estimat Glomerular Filtration Rate 59, BUN/Creatinine Ratio 16, Glucose Level 101, Calcium Level 9.4, Corrected Calcium 9.5, Total Bilirubin 0.2, Aspartate Amino Transf (AST/SGOT) 21, Alanine Aminotransferase (ALT/SGPT) 24, Alkaline Phosphatase 66, Total Protein 7.3, [place] min 3.9 Microbiology 01/14/20 Urine Culture - Final, Complete 3 or more isolates A/P: Assessment/Dx: Chest pain, shortness of breath, UTI Plan: Chest pain, serial troponin negative. Patient does have history of diabetes therefore high risk for CAD. Continue aspirin. Nuclear stress test done on 01/16/2020 showed no evidence of ischemia or infarction. Shortness of breath, no florid CHF. BNP mildly elevated. Echocardiogram showed normal LV function with no significant regional wall motion abnormalities. No valvular heart disease. Diabetes, deferred to the primary team. UTI defer to the primary team. Okay to discharge from a cardiology perspective, to follow-up with primary care physician. Thank you for your consultation. Please call me if you have any questions. Valorie Powell MD, FACP, FACC, FSCAI, FHRS, CCDS Interventional Cardiology Cardiac Electrophysiology Vascular Medicine and Endovascular Interventions Reginald POWELL MD Jan 16, 2020 14:52
--- NOTE | 2020-01-16 14:54 | Cardiology Stress Test Report ---
Stress Test Report Type of NM Stress Test: Test Type: LEXISCAN 0.4MG/5ML Date of Procedure/Referring: Date of Procedure: Jan 16, 2020 PCP Chantal Desir DO Admitting Physician [facility] Indications: Chest pain Baseline Heart Rate: 100 Baseline Blood Pressure: Blood Pressure Systolic: 157 Blood Pressure Diastolic: 89 Baseline EKG: Baseline EKG: Sinus rhythm Summary & Conclusion: Summary: The patient was brought to the stress lab after informed consent was taken. Stress test was performed according to the Lexiscan protocol. 0.4 mg of IV Lexiscan was given. Low-grade exercise was performed. Baseline EKG showed sinus rhythm at 100 BPM, blood pressure 148/68 mmHg. Maximum heart rate of 90 BPM and blood pressure 178/84 mmHg. Patient did not have any arrhythmias or ST segment changes during the stress test. Pleuritic chest pain. 10.47 mCi of Myoview were given for rest imaging and 30.3 mCi of Myoview given for stress imaging. Transient ischemic dilatation score 1.1, EF 71 percent. Normal wall motion. Normal myocardial perfusion imaging during rest and stress. Conclusion: Pharmacological stress test was negative for ischemia. Normal LV function with no wall motion abnormalities. Normal myocardial perfusion imaging during rest and stress. Reginald WELLS MD Jan 16, 2020 14:54
[2020-01-16] MEDS: GABAPENTIN 300 MG (NEURONTIN) CAP PO SCH (14:56)
[2020-01-16] MEDS: CYCLOBENZAPRINE 10 MG (FLEXERIL) TAB PO SCH (14:57)
[2020-01-16] MEDS: buPROPion 100 MG (WELLBUTRIN) TAB PO SCH (14:57)
[2020-01-16] MEDS: TRIAMTERENE/HCTZ 75-50 (MAXZIDE,DYAZIDE) TABLET PO SCH (14:57)
[2020-01-16] MEDS: APIXABAN 5 MG (ELIQUIS) TABLET PO SCH (14:57)
[2020-01-16] MEDS: LITHIUM CARBONATE 300 MG TABLET PO SCH (14:57)
[2020-01-16] MEDS: PREGABALIN 150 MG (LYRICA) CAPSULE PO SCH (14:58)
[2020-01-16] MEDS: SENNA W/DOCUSATE (SENOKOT S) TABLET PO SCH (14:58)
[2020-01-16] MEDS ORDERED: NON-FORMULARY MEDICATION 1 EA EA (Naloxone HCl (Narcan) 1 SPRAY) NS PRN (16:00)
[2020-01-16] MEDS ORDERED: FLUTICASONE NASAL SPRAY (FLONASE) 16 GM BTL NS PRN (16:00)
[2020-01-16] MEDS ORDERED: RT-ALBUTEROL/IPRATROPIUM 3 ML (DUONEB) VIAL IH PRN (16:00)
[2020-01-16 16:36] VITALS: BP 136/74
[2020-01-16] MEDS ORDERED: NON-FORMULARY MEDICATION 1 EA EA (Potassium Chloride 10 MEQ) PO SCH (18:00)
[2020-01-16] MEDS ORDERED: KCL 10 MEQ TAB (MICRO K) PO SCH (18:00)
[2020-01-16] MEDS ORDERED: LACTOBACILLUS ACIDOPHILUS (PROBIOTIC) CAPSULE PO SCH (18:00)
[2020-01-16] MEDS ORDERED: ESTRADIOL 1 MG TAB (ESTRACE) PO SCH (21:00)
[2020-01-16] MEDS ORDERED: NON-FORMULARY MEDICATION 1 EA EA (L.acidoph & Paracasei,B.lactis (Probiotic) 1 EACH) PO SCH (21:00)
[2020-01-16] MEDS ORDERED: TRIAMTERENE/HCTZ 75-50 (MAXZIDE,DYAZIDE) TABLET PO SCH (21:00)
[2020-01-17] MEDS ORDERED: metFORMIN 500 MG (GLUCOPHAGE) TAB PO SCH (07:00)
[2020-01-17] MEDS ORDERED: OMEGA 3 (FISH OIL) 1000 MG CAP PO SCH (08:00)
[2020-01-17] MEDS ORDERED: lisINopril 10 MG (PRINIVIL) TABLET PO SCH (09:00)
[2020-01-17] MEDS ORDERED: NON-FORMULARY MEDICATION 1 EA EA (Cetirizine HCl (Zyrtec) 10 MG) PO SCH (09:00)
[2020-01-17] MEDS ORDERED: [UNRECOGNIZED DRUG - OTHER] PO SCH (09:00)
[2020-01-17] MEDS ORDERED: NON-FORMULARY MEDICATION 1 EA EA (Omega-3/Dha/Epa/Fish Oil (Fish Oil 1,000 mg Softgel) 1 E PO SCH (09:00)
[2020-01-17] MEDS ORDERED: LORATADINE (CLARITIN) 10 MG TAB PO SCH (09:00)
== END 2020-01-16 17:20 | disposition home or self-care (01) ==
LOC: EDUNIT# 09:55 → ER FS 09:56 → 4TH 13:20
PROVIDERS: ADMIT Internal Medicine; ATTEND Internal Medicine
DX: N30.00 Acute cystitis without hematuria (principal); E11.9 Type 2 diabetes mellitus without complications; R07.2 Precordial pain; J44.9 Chronic obstructive pulmonary disease, unspecified; F32.9 Major depressive disorder, single episode, unspecified; I36.1 Nonrheumatic tricuspid (valve) insufficiency; I11.9 Hypertensive heart disease without heart failure; Z79.51 Long term (current) use of inhaled steroids; Z79.84 Long term (current) use of oral hypoglycemic drugs; Z79.01 Long term (current) use of anticoagulants; Z79.899 Other long term (current) drug therapy; Z88.0 Allergy status to penicillin; Z88.5 Allergy status to narcotic agent; Z91.040 Latex allergy status; Z91.048 Other nonmedicinal substance allergy status; Z90.710 Acquired absence of both cervix and uterus; Z87.442 Personal history of urinary calculi; Z80.0 Family history of malignant neoplasm of digestive organs
CPT/HCPCS: 36415; 51701; 71045; 78452; 80053 ×3; 80178; 81000; 83880 ×2; 84484 ×3; 85007; 85025 ×2; 85027; 85379; 85610; 85730; 87088; 93005; 93017; 93306; 94640; 94664; 94760; 96361; 96374; 96375; 99284; A9502; G0378

== ENCOUNTER → 2020-01-18 | Outpatient (CLI) | payer OTHER ==
[~2020-01-18] MED LIST changes: +CATHETER FLUSH 10 ML SYR IV PRN; +CETI10TA21 PO; +CRAN1TAB4 PO; +ESTR1TAB27 PO; +FLUT16SP22 NSEACH; +HOLD METFORMIN - RECEIVED CONTRAST 20 ML VIAL IV SCH; +IOHEXOL 350 MG/ML 150 ML (OMNIPAQUE 350) VIAL IV ONE; +NALO4SPR NS; +NS 100 ML (IVPB) BAG IV ONE; +RT-ALBUINH IH; +TRAM50TA3 PO
--- NOTE | 2020-01-18 13:58 | Diagnostic Imaging Report ---
EXAMINATION: CT angiography of the chest. TECHNIQUE: Contrast enhanced thin section helical images were obtained through the chest with intravenous contrast timed for the optimal opacification of the arterial structures per CTA protocol. Post-processing, reconstructions and interpretation of angiographic images of the vessels was performed. 3D MIP reconstructions were performed and reviewed. All CT scans use one or more of the following dose optimizing techniques: automated exposure control, MA and/or KvP adjustment based on a patient size and exam type, or iterative reconstruction. HISTORY: Left-sided chest wall pain. COMPARISON: 12/15/2019. FINDINGS: No pulmonary embolism is seen. There is no edema or pneumonia. No pleural effusion. No pneumothorax. No suspicious nodules. There is minimal right base atelectasis. Heart size is normal. There are no coronary artery calcifications. No pericardial effusion. Aorta is normal in caliber. There is no axillary or supraclavicular lymphadenopathy. There is no mediastinal lymphadenopathy. Limited views of the upper abdomen show changes of cholecystectomy. There are no suspicious osseus lesions. IMPRESSION: 1. No pulmonary embolism, clear lungs. Dictated by: Dictated on workstation # [id number]
== END ==
LOC: RAD FS 12:23
PROVIDERS: ATTEND Nurse Practitioner Family
DX: J41.1 Mucopurulent chronic bronchitis (principal); I10 Essential (primary) hypertension
CPT/HCPCS: 71275

== ENCOUNTER 2020-02-16 15:29 | Emergency (ER) | payer OTHER ==
[~2020-02-16] VITALS: Ht 154 cm; Wt 91.0 kg
[~2020-02-16 15:29] MED LIST changes: -CATHETER FLUSH 10 ML SYR IV PRN; -HOLD METFORMIN - RECEIVED CONTRAST 20 ML VIAL IV SCH; -IOHEXOL 350 MG/ML 150 ML (OMNIPAQUE 350) VIAL IV ONE; -NS 100 ML (IVPB) BAG IV ONE
[2020-02-16 16:14] LABS: BASOPHILS % (AUTO) 0 % (0-10); EOSINOPHILS # (AUTO) 0.3 10^3/uL (0.0-0.3); EOSINOPHILS % (AUTO) 3 % (0-10); HEMATOCRIT 38 % (35-52); HEMOGLOBIN 12.2 G/DL (11.5-16.0); LYMPHOCYTES # (AUTO) 3.4 X 10^3 (1.0-4.0); LYMPHOCYTES % (AUTO) 34 % (12-44); MEAN CORPUSCULAR HEMOGLOBIN 28 PG (25-34); MEAN CORPUSCULAR HGB CONC 32 G/DL (32-36); MEAN CORPUSCULAR VOLUME 89 FL (80-99); MEAN PLATELET VOLUME 9.1 FL (7.4-10.4); MONOCYTES # (AUTO) 0.7 X 10^3 (0.0-1.0); MONOCYTES % (AUTO) 7 % (0-12); NEUTROPHILS # (AUTO) 5.6 X 10^3 (1.8-7.8); NEUTROPHILS % (AUTO) 56 % (42-75); PLATELET COUNT 365 10^3/uL (130-400); RED CELL DISTRIBUTION WIDTH 13.8 % (10.0-14.5)
[2020-02-16 16:31] LABS: BILIRUBIN,URINE NEGATIVE (NEGATIVE); CLARITY,URINE CLEAR; COLOR,URINE YELLOW; GLUCOSE, URINE (UA) NEGATIVE (NEGATIVE); KETONES,URINE NEGATIVE (NEGATIVE); LEUKOCYTE ESTERASE ,URINE 1+ (NEGATIVE); NITRITE,URINE NEGATIVE (NEGATIVE); PROTEIN,URINE NEGATIVE (NEGATIVE); WBC,URINE 0-2 /HPF
[2020-02-16 16:32] LABS: BACTERIA,URINE TRACE /HPF
[2020-02-16 16:36] LABS: CARBON DIOXIDE 22 MMOL/L (21-32); CHLORIDE 101 MMOL/L (98-107); POTASSIUM 3.5 MMOL/L (3.6-5.0); SODIUM 136 MMOL/L (135-145)
[2020-02-16 16:37] LABS: ALANINE AMINOTRANSFERASE 15 U/L (0-55); ALBUMIN 3.9 GM/DL (3.2-4.5); ALKALINE PHOSPHATASE 75 U/L (40-136); BILIRUBIN,TOTAL 0.2 MG/DL (0.1-1.0); BUN/CREATININE RATIO 14; CALCIUM 9.1 MG/DL (8.5-10.1); CREATININE SERUM 0.76 MG/DL (0.60-1.30); GFR ESTIMATED > 60; GLUCOSE 143 MG/DL (70-105); LIPASE 29 U/L (8-78); MAGNESIUM 1.9 MG/DL (1.6-2.4); TOTAL PROTEIN 7.1 GM/DL (6.4-8.2)
[2020-02-16] MEDS ORDERED: fentaNYL INJECTION 100 MCG/2 ML AMP IVP ONE (16:45)
[2020-02-16] MEDS ORDERED: ONDANSETRON 4 MG/2 ML (SDV) Z0FRAN IVP ONE (16:45)
--- NOTE | 2020-02-16 16:51 | Diagnostic Imaging Report ---
INDICATION: Chest pain/abdominal pain. COMPARISON: 01/14/2020. FINDINGS: Single frontal view of the chest demonstrates normal heart size and pulmonary vascularity. The lungs are well aerated and clear. No large pleural effusion or pneumothorax is seen. The visualized osseous structures show no acute abnormalities. IMPRESSION: 1. No acute cardiopulmonary process. Dictated by: Dictated on workstation # [id number]
--- OUTSIDE RECORDS SUMMARY | 2020-02-16 17:07 | XMS REPORT | Continuity of Care Document ---
Author Organization Unknown Address Unknown Phone Unavailable Allergies Active Description Code Type Severity Reaction Onset Reported/Identified Relationship to Patient Clinical Status Yes ADHESIVE TAPE MOD ERATE MODERATE Yes HYDROCODONE-ACETAMINOPHEN UNKNOWN UNKNOWN Yes LATEX UNKNOWN UNKNOWN Yes MORPHINE SEVERE SEVERE Yes PENICILLIN G POTASSIUM UNKNOWN UNKNOWN Yes ZITHROMAX Z-ROCHELLE S EVERE SEVERE Yes ADHESIVE TAPE 28938 Chemical Low Rash~Other 12/12/2015 12/12/2015 Yes AZITHROMYCIN [...] PLASTIC TAPE Mild N/A 12/05/2019 Yes hydrocodone [id number] Drug Aller gy Unknown N/A 12/05/2019 Yes latex [id number] Drug Allergy Unknown N/A 12/05/2019 Yes morphine [id number] Drug Allergy Unknown N/A 12/05/2019 Medications Medication [...] Oral 25 4 TIMES DAILY PRN NYSTATIN 406372 UNIT/GM EX CREA 12/13/2015 Topical 2 TIMES [...] IN AEPB 12/13/2015 Inhalation 1 DAILY NYSTATIN [id number] UNIT/GM EX CREA 12/13/2015 Topical 2 TIMES [...] HALLEY COHN STEVE T Ot Z79. 01 CORRECTION (CURRENT) USE OF ANTICOAGULANT 09/18/2018 HALLEY COHN [...] 09/20/2018 HALLEY COHNBEAED T Ot Z79. [address] JUDGE (CURRENT) USE OF ANTICOAGULANT 09/20/2018 HALLEY COHN [...] INCISIONAL SURGICAL SITE, I NIT 02/14/2019 Manish Iamelionrenrike W 552.21 INCISIONAL HERNIA WITH OBSTRUCTION 02/14/2019 [...] OF NICOTINE DEPENDENCE 12/12/2019 O'DELL, ADDY K BRAID PATTERN SETTER Ot N30.01 ACUTE CYSTITIS WITH HEMATURIA 12/12/2019 O'DELL, ADDY K BRAID PATTERN SETTER Ot Z86.19 PERSONAL HISTORY OF OTHER INFECTIOUS AND 12/13/2019 O'DELL, ADDY K BRAID PATTERN SETTER Ot N30.01 ACUTE CYSTITIS WITH HEMATURIA 12/13/2019 O'DELL, ADDY K BRAID PATTERN SETTER Ot Z86.19 PERSONAL HISTORY OF OTHER INFECTIOUS [...] 12/19/2019 MAGALIE JOSÉ MD, Ot Z79.[address] JUDGE (CURRENT) USE OF ANTICOAGULANT 12/19/2019 MAGALIE JOSÉ MD, Ot Z79.[address] JUDGE (CURRENT) USE OF INHALED STERO 12/19/2019 MAGALIE [...] 12/23/2019 MARÍA EDMONDS MD Ot Z79. [address] JUDGE (CURRENT) USE OF ANTICOAGULANT 12/23/2019 MARÍA EDMONDS MD Ot Z79. 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 01/16/2020 RITO COHN DARION Ot J44.9 CHRONIC OBSTRUCTIVE PULMONARY DISEASE, U 01/16/2020 RITO COHN DARION Ot N30.00 ACUTE CYSTITIS WITHOUT HEMATURIA 01/16/2020 RITO COHN DARION Ot R07.2 PRECORDIAL PAIN 01/16/2020 RITO COHN DARION Ot Z79.[address] JUDGE (CURRENT) USE OF ANTICOAGULANT 01/16/2020 RITO COHN DARION Ot Z79.51 CORRECTION (CURRENT) USE OF INHALED STERO 01/16/2020 RITO COHN DARION Ot Z79.[address] JUDGE (CURRENT) USE OF ORAL HYPOGLYC 01/16/2020 RITO COHN DARION Ot Z79.[address] JUDGE (CURRENT) DRUG THERAPY 01/16/2020 RITO COHN DARION Ot Z80.0 FAMILY HISTORY OF MALIGNANT NEOPLASM OF 01/16/2020 RITO COHN DARION Ot Z87.44 2 PERSONAL HISTORY OF URINARY CALCULI 01/16/2020 RITO COHN DARION Ot Z88.0 ALLERGY STATUS TO PENICILLIN 01/16/2020 RITO COHN DARION Ot Z88.5 ALLERGY STATUS TO NARCOTIC AGENT STATUS 01/16/2020 RITO COHN DARION Ot Z90.71 0 ACQUIRED ABSENCE OF BOTH CERVIX AND UTER 01/16/2020 RITO COHN DARION Ot Z91.04 0 LATEX ALLERGY STATUS 01/16/2020 RITO COHN DARION Ot Z91.04 8 OTHER NONMEDICINAL SUBSTANCE ALLERGY STA 01/16/2020 RITO COHN DARION Ot E11.9 TYPE 2 DIABETES MELLITUS WITHOUT COMPLIC 01/16/2020 RITO COHN DARION Ot F32.9 MAJOR DEPRESSIVE DISORDER, SINGLE EPISOD 01/16/2020 RITO COHN DARION Ot I11.9 HYPERTENSIVE HEART DISEASE WITHOUT HEART 01/16/2020 RITO COHN DARION Ot 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 01/16/2020 RITO COHN DARION Ot J44.9 CHRONIC OBSTRUCTIVE PULMONARY DISEASE, U 01/16/2020 RITO COHN DARION Ot N30.00 ACUTE CYSTITIS WITHOUT HEMATURIA 01/16/2020 RITO COHN DARION Ot R07.2 PRECORDIAL PAIN 01/16/2020 VERASSOFIA COHN DARION Ot Z79.[address] JUDGE (CURRENT) USE OF ANTICOAGULANT 01/16/2020 VERASSOFIA COHN DARION Ot Z79.[address] JUDGE (CURRENT) USE OF INHALED STERO 01/16/2020 VERASSOFIA COHN DARION Ot Z79.84 CORRECTION (CURRENT) USE OF ORAL HYPOGLYC 01/16/2020 RITO COHN DARION Ot Z79.89 9 OTHER CORRECTION (CURRENT) DRUG THERAPY 01/16/2020 RITO COHN DARION Ot Z80.0 FAMILY HISTORY OF MALIGNANT NEOPLASM OF 01/16/2020 VERAS DORYANI Ot Z87.44 2 PERSONAL HISTORY OF URINARY CALCULI 01/16/2020 RITO COHN DARION Ot Z88.0 ALLERGY STATUS TO PENICILLIN 01/16/2020 RITO COHN DARION Ot Z88.5 ALLERGY STATUS TO NARCOTIC AGENT STATUS 01/16/2020 RYAN VERAS DOI Ot Z90.71 0 ACQUIRED ABSENCE OF BOTH CERVIX AND UTER 01/16/2020 RITO COHN DARION Ot Z91.04 0 LATEX ALLERGY STATUS 01/16/2020 VERASSOFIA COHN DARION Ot Z91.04 8 OTHER NONMEDICINAL SUBSTANCE ALLERGY STA 01/16/2020 O'ADYD COLIN BRAID PATTERN SETTER Ot N30.01 ACUTE CYSTITIS WITH HEMATURIA 01/16/2020 O'ADDY COLIN BRAID PATTERN SETTER Ot R19 .5 OTHER FECAL ABNORMALITIES 01/19/2020 O'ADDY COLIN BRAID PATTERN SETTER Ot I10 ESSENTIAL (PRIMARY) HYPERTENSION 01/19/2020 O'DELADDY Cohen BRAID PATTERN SETTER Ot J41 .1 MUCOPURULENT CHRONIC BRONCHITIS 02/03/2020 O'DELVicki ADYD K BRAID PATTERN SETTER Ot I10 ESSENTIAL (PRIMARY) HYPERTENSION 02/03/2020 O'DELVicki ADDY K BRAID PATTERN SETTER Ot J41 .1 MUCOPURULENT CHRONIC BRONCHITIS Procedures There is no data. Results Test [...] mg/dL 0.2 WBC UA 0-3 /HPF 0-3 [id number] Negative Negative PROTIME-INR - 12/14/15 06:17 INR 1.34 INR PROTHROMBIN TIME 17.2 sec. 11.8-14.8 HEMOGLOBIN A1C - 12/14/15 06:17 HEMOGLOBIN A1C 5.8 % 4.0-6.0 SUREPATH PAP RFX HPV mRNA E6/E7 - 00:00 CLINICAL INFORMATION: NRG LMP: NRG PREV. PAP: NRG PREV. BX: NRG SOURCE: Cervix NRG STATEMENT OF ADEQUACY: NRG INTERPRETATION/RESULT: NRG SPECIAL PROJECTS MANAGER: NRG COMMENT NRG A1C - 12/06/18 [...] - 12/31/18 12:13 Surg Path Sent to [facility] Pathology Comprehensive Metabolic Panel - 01/27/19 12:12 [...] Negative Urine-Blood Negative Negative Urine-Color Yellow Colorless-[place] ow Urine-Epithelial Cells 0-5/HPF Urine-Glucose Negative Negative Urine-Ketones Negative Negative Urine-Leukocytes Negative Negative Urine-Nitrite Negative Negative Urine-Other Urine Saved if Culture Need ed (48hrs from time of collection) Urine-pH 8.5 5-8.5 Urine-Protein Negative Negative Urine-RBC Negative Urine-Specific [place] 1.015 1.000-1 .030 Urine-WBC Negative Urobilinogen 0.2 E.U./dL 0.2-1.0 Surgical Pathology - 02/14/19 13:12 Surg Path Sent to [facility] Pathology CMP - 03/17/19 09:20 GLUCOSE 99 mg/dL 65-99 UREA NITROGEN (BUN) 9 mg/dL 7-25 CREATININE 0.73 mg/dL 0.50-1.05 eGFR NON-AFR. BERMUDIAN 93 mL/min/1.73m2 > OR = 60 eGFR [...] NRG STATEMENT OF ADEQUACY: NRG INTERPRETATION/RESULT: NRG SPECIAL PROJECTS MANAGER: NRG COMMENT NRG CMP - 11/15/19 11:43 GLUCOSE 83 mg/dL 65-99 UREA NITROGEN (BUN) 10 mg/dL 7-25 CREATININE 0.58 mg/dL 0.50-1.05 eGFR NON-AFR. BERMUDIAN 104 mL/min/1.73m2 > OR = 60 eGFR [...] in platelet poor plasma bycoagulation assay - 06/11/20 18:30 Activated partial thromboplastin time (a PTT) [...] g/dL 3.2-4.5 CALCIUM CORRECTED 9.6 mg/dL 8.5-10.1 CBC - 01/13/20 14:42 WHITE BLOOD CELL COUNT 9.2 Thousand/uL 3 .8-10.8 RED BLOOD CELL COUNT 4.09 Million/uL 3.8 0-5.10 HEMOGLOBIN 11.6 g/dL 11.7-15.5 HEMATOCRIT 36.0 % 35.0-45.0 MCV 88.0 fL 80.0-100.0 MCH 28.4 pg 27.0-33.0 MCHC 32.2 g/dL 32.0-36.0 RDW 13.3 % 11.0-15.0 PLATELET COUNT 140 Thousand/uL 140-400 MPV 10.5 fL 7.5-12.5 ABSOLUTE NEUTROPHILS 5538 cells/uL 1500- 7800 ABSOLUTE LYMPHOCYTES 2751 cells/uL 850-3 900 ABSOLUTE MONOCYTES 644 cells/uL 200-950 ABSOLUTE EOSINOPHILS 239 cells/uL 15-500 ABSOLUTE BASOPHILS 28 cells/uL 0-200 NEUTROPHILS 60.2 % NRG LYMPHOCYTES 29.9 % NRG MONOCYTES 7.0 % NRG EOSINOPHILS 2.6 % NRG BASOPHILS 0.3 % NRG CULTURE, URINE - 01/13/20 14:42 CULTURE, URINE, ROUTINE SEE NOTE NRG Serum or plasma troponin i.cardiac measu rement (mass/volume) - 01/14/20 00:00 Serum or plasma troponin i.cardiac measurement (mass/v olume) < ng/mL <0.028 Complete blood count (CBC) with automate d [...] Blood erythrocyte morphology finding identification NORMAL NRG LITHIUM LEVEL - 01/14/20 10:10 Blood lithium measurement (moles/volume) 0.2 % 0.6-1.2 Complete urinalysis with reflex to cultu re [...] platelet poor plasma (mass/volume) 0.42 ug/mL 0.00-0.49 Bacterial urine culture - 01/14/20 10:20 Bacterial urine culture 3 OR MORE NRG COLONY COUNT 10,000 CFU/ML NRG SUSCEPTIBILITY SUGGESTING PROBABLE COLLECTION NRG MRSA SCREEN CONTAMINATION WITH SKIN DARNELL NRG RAPID ID NO SUSCEPTIBILITY PERFORMED N RG Complete urinalysis with reflex to cultu re [...] urinalysis with reflex to culture NO NRG Serum or plasma lithium measurement (mol es/volume) - 01/14/20 15:21 BNP PT 44.8 pg/mL <100.0 Serum or plasma troponin i.cardiac measu rement (mass/volume) - 01/14/20 17:54 Serum or plasma troponin i.cardiac measurement (mass/v olume) < ng/mL <0.028 Complete blood count (CBC) with automate d white blood cell (WBC) differential - 01/15/20 07:00 Blood leukocytes automated count (number/volume) 10.6 10*3/uL 4.3-11.0 Blood erythrocytes automated count (number/volume) 4.04 10*6/uL 4.35-5.85 Venous blood hemoglobin measurement (mass/volume) 11.5 g/dL 11.5-16.0 Blood hematocrit (volume fraction) 37 % 35-52 Automated erythrocyte mean corpuscular volume 91 [ foz_us] 80-99 Automated erythrocyte mean corpuscular h emoglobin (mass per erythrocyte) 29 pg 25-34 Automated erythrocyte mean corpuscular h emoglobin concentration measurement (mass/volume) 31 g/dL 32-36 Automated erythrocyte distribution width ratio 14. 2 % 10.0- 14.5 Automated blood platelet count (count/volume) 326 10*3/uL 130-400 Automated blood platelet mean volume measurement 10.0 [foz_us] 7.4-10.4 Automated blood neutrophils/100 leukocytes 55 % 42-75 Automated blood lymphocytes/100 leukocytes 37 % 12-44 Blood monocytes/100 leukocytes 7 % 0-12 Automated blood eosinophils/100 leukocytes 1 % 0-10 Automated blood basophils/100 leukocytes 0 % 0-10 Blood neutrophils automated count (number/volume) 5.8 10*3 1.8-7.8 Blood lymphocytes automated count (number/volume) 3.9 10*3 1.0-4.0 Blood monocytes automated count (number/volume) 0. 8 10*3 0.0-1.0 Automated eosinophil count 0.1 10*3/uL 0 .0-0.3 Automated blood basophil count (count/volume) 0.0 10*3/uL 0.0-0.1 Comprehensive metabolic panel - 01/15/20 07:00 Serum or plasma sodium measurement (moles/volume) 139 mmol/L 135-145 Serum or plasma potassium measurement (moles/volume) 4.6 mmol/L 3.6-5.0 Serum or plasma chloride measurement (moles/volume) 107 mmol/L 98-107 Carbon dioxide 21 mmol/L 21-32 Serum or plasma anion gap determination (moles/volume) 11 mmol/L 5-14 Serum or plasma urea nitrogen measurement (mass/volume ) 17 mg/dL 7-18 Serum or plasma creatinine measurement (mass/volume) 0.86 mg/dL 0.60-1.30 Serum or plasma urea nitrogen/creatinine mass ratio 20 NRG Serum or plasma creatinine measurement w ith calculation of estimated glomerular filtration rate > NRG Serum or plasma glucose measurement (mass/volume) 91 mg/dL 70-105 Serum or plasma calcium measurement (mass/volume) 8.6 mg/dL 8.5-10.1 Serum or plasma total bilirubin measurement (mass/volu me) 0.3 mg/dL 0.1-1.0 Serum or plasma alkaline phosphatase aury surement (enzymatic activity/volume) 55 U/L 40-136 Serum or plasma aspartate aminotransfera se measurement (enzymatic activity/volume) 24 U/L 5-34 Serum or plasma alanine aminotransferase measurement (enzymatic activity/volume) 20 U/L 0-55 Serum or plasma protein measurement (mass/volume) 6.6 g/dL 6.4-8.2 Serum or plasma albumin measurement (mass/volume) 3.4 g/dL 3.2-4.5 CALCIUM CORRECTED 9.1 mg/dL 8.5-10.1 Serum or plasma troponin i.cardiac measu rement (mass/volume) - 01/15/20 07:00 Serum or plasma troponin i.cardiac measurement (mass/v olume) < ng/mL <0.028 Complete blood count (CBC) with automate d white blood cell (WBC) differential - 01/16/20 05:10 Blood leukocytes automated count (number/volume) 9.2 10*3/uL 4.3-11.0 Blood erythrocytes automated count (number/volume) 4.67 10*6/uL 4.35-5.85 Venous blood hemoglobin measurement (mass/volume) 13.3 g/dL 11.5-16.0 Blood hematocrit (volume fraction) 43 % 35-52 Automated erythrocyte mean corpuscular volume 91 [ foz_us] 80-99 Automated erythrocyte mean corpuscular h emoglobin (mass per erythrocyte) 29 pg 25-34 Automated erythrocyte mean corpuscular h emoglobin concentration measurement (mass/volume) 31 g/dL 32-36 Automated erythrocyte distribution width ratio 14. 4 % 10.0- 14.5 Automated blood platelet count (count/volume) 355 10*3/uL 130-400 Automated blood platelet mean volume measurement 9.1 [foz_us] 7.4-10.4 Automated blood neutrophils/100 leukocytes 50 % 42-75 Automated blood lymphocytes/100 leukocytes 38 % 12-44 Blood monocytes/100 leukocytes 8 % 0-12 Automated blood eosinophils/100 leukocytes 3 % 0-10 Automated blood basophils/100 leukocytes 0 % 0-10 Blood neutrophils automated count (number/volume) 4.6 10*3 1.8-7.8 Blood lymphocytes automated count (number/volume) 3.5 10*3 1.0-4.0 Blood monocytes automated count (number/volume) 0. 8 10*3 0.0-1.0 Automated eosinophil count 0.3 10*3/uL 0 .0-0.3 Automated blood basophil count (count/volume) 0.0 10*3/uL 0.0-0.1 Comprehensive metabolic panel - 01/16/20 05:10 Serum or plasma sodium measurement (moles/volume) 138 mmol/L 135-145 Serum or plasma potassium measurement (moles/volume) 4.1 mmol/L 3.6-5.0 Serum or plasma chloride measurement (moles/volume) 101 mmol/L 98-107 Carbon dioxide 24 mmol/L 21-32 Serum or plasma anion gap determination (moles/volume) 13 mmol/L 5-14 Serum or plasma urea nitrogen measurement (mass/volume ) 16 mg/dL 7-18 Serum or plasma creatinine measurement (mass/volume) 0.98 mg/dL 0.60-1.30 Serum or plasma urea nitrogen/creatinine mass ratio 16 NRG Serum or plasma creatinine measurement w ith calculation of estimated glomerular filtration rate 59 NRG Serum or plasma glucose measurement (mass/volume) 101 mg/dL 70-105 Serum or plasma calcium measurement (mass/volume) 9.4 mg/dL 8.5-10.1 Serum or plasma total bilirubin measurement (mass/volu me) 0.2 mg/dL 0.1-1.0 Serum or plasma alkaline phosphatase aury surement (enzymatic activity/volume) 66 U/L 40-136 Serum or plasma aspartate aminotransfera se measurement (enzymatic activity/volume) 21 U/L 5-34 Serum or plasma alanine aminotransferase measurement (enzymatic activity/volume) 24 U/L 0-55 Serum or plasma protein measurement (mass/volume) 7.3 g/dL 6.4-8.2 Serum or plasma albumin measurement (mass/volume) 3.9 g/dL 3.2-4.5 CALCIUM CORRECTED 9.5 mg/dL 8.5-10.1 CULTURE, URINE - 01/31/20 17:43 CULTURE, URINE, ROUTINE SEE NOTE NRG Complete blood count (CBC) with automate d white blood cell (WBC) differential - 02/16/20 15:40 Blood leukocytes automated count (number/volume) 10.0 10*3/uL 4.3-11.0 Blood erythrocytes automated count (number/volume) 4.29 10*6/uL 4.35-5.85 Venous blood hemoglobin measurement (mass/volume) 12.2 g/dL 11.5-16.0 Blood hematocrit (volume fraction) 38 % 35-52 Automated erythrocyte mean corpuscular volume 89 [ foz_us] 80-99 Automated erythrocyte mean corpuscular h emoglobin (mass per erythrocyte) 28 pg 25-34 Automated erythrocyte mean corpuscular h emoglobin concentration measurement (mass/volume) 32 g/dL 32-36 Automated erythrocyte distribution width ratio 13. 8 % 10.0- 14.5 Automated blood platelet count (count/volume) 365 10*3/uL 130-400 Automated blood platelet mean volume measurement 9.1 [foz_us] 7.4-10.4 Automated blood neutrophils/100 leukocytes 56 % 42-75 Automated blood lymphocytes/100 leukocytes 34 % 12-44 Blood monocytes/100 leukocytes 7 % 0-12 Automated blood eosinophils/100 leukocytes 3 % 0-10 Automated blood basophils/100 leukocytes 0 % 0-10 Blood neutrophils automated count (number/volume) 5.6 10*3 1.8-7.8 Blood lymphocytes automated count (number/volume) 3.4 10*3 1.0-4.0 Blood monocytes automated count (number/volume) 0. 7 10*3 0.0-1.0 Automated eosinophil count 0.3 10*3/uL 0 .0-0.3 Automated blood basophil count (count/volume) 0.0 10*3/uL 0.0-0.1 PT panel in platelet poor plasma by coag ulation assay - 02/16/20 15:40 Prothrombin time (PT) in platelet poor plasma by coagu lation assay 13.0 s 12.2-14.7 INR in platelet poor plasma or blood by coagulation as say 1.0 0.8-1.4 Activated partial thromboplastin time (a PTT) in platelet poor plasma bycoagulation assay - 02/16/20 15:40 Activated partial thromboplastin time (a PTT) in platelet poor plasma bycoagulation assay 29 s 24-35 Complete urinalysis with reflex to cultu re - 02/16/20 15:40 Urine color determination YELLOW NRG Urine clarity determination CLEAR NR G Urine pH measurement by test strip 6.0 5-9 Specific gravity of urine by test strip 1.020 1.016-1.022 Urine protein assay by test strip, [...] 1.0 Urine leukocyte esterase detection by dipstick 1+ [...] urinalysis with reflex to culture NO NRG Comprehensive metabolic panel - 02/16/20 15:40 Serum or plasma sodium measurement (moles/volume) 136 mmol/L 135-145 Serum or plasma potassium measurement (moles/volume) 3.5 mmol/L 3.6-5.0 Serum or plasma chloride measurement (moles/volume) 101 mmol/L 98-107 Carbon dioxide 22 mmol/L 21-32 Serum or plasma anion gap determination (moles/volume) 13 mmol/L 5-14 Serum or plasma urea nitrogen measurement (mass/volume ) 11 mg/dL 7-18 Serum or plasma creatinine measurement (mass/volume) 0.76 mg/dL 0.60-1.30 Serum or plasma urea nitrogen/creatinine mass ratio 14 NRG Serum or plasma creatinine measurement w ith calculation of estimated glomerular filtration rate > NRG Serum or plasma glucose measurement (mass/volume) 143 mg/dL 70-105 Serum or plasma calcium measurement (mass/volume) 9.1 mg/dL 8.5-10.1 Serum or plasma total bilirubin measurement (mass/volu me) 0.2 mg/dL 0.1-1.0 Serum or plasma alkaline phosphatase aury surement (enzymatic activity/volume) 75 U/L 40-136 Serum or plasma aspartate aminotransfera se measurement (enzymatic activity/volume) 16 U/L 5-34 Serum or plasma alanine aminotransferase measurement (enzymatic activity/volume) 15 U/L 0-55 Serum or plasma protein measurement (mass/volume) 7.1 g/dL 6.4-8.2 Serum or plasma albumin measurement (mass/volume) 3.9 g/dL 3.2-4.5 CALCIUM CORRECTED 9.2 mg/dL 8.5-10.1 Magnesium - 02/16/20 15:40 Magnesium 1.9 mg/dL 1.6-2.4 Lipase - 02/16/20 15:40 Lipase 29 U/L 8-78 TROPONIN I FS - 02/16/20 15:40 TROPONIN I FS < 0.30 <0.30 PROBNP FS - 02/16/20 15:40 PROBNP FS 37.5 pg/mL <75.0 Encounters ACCT No. Visit Date/Time Discharge Status Pt. Type Provider Facility Loc./Unit Complaint [id number] 01/31/2020 17:45:00 01/31/2020 23:59:5 9 CLS [facility] [id number] 01/31/2020 17:45:00 Document Registration [id number] 01/13/2020 15:00:00 Document Registration [id number] 11/15/2019 10:15:00 Document Registration [id number] 11/07/2019 12:30:00 Document Registration [id number] 10/07/2019 15:30:00 Document Registration [id number] 09/13/2019 13:45:00 Document Registration [id number] 09/12/2019 14:40:00 Document Registration [id number] 07/27/2019 08:00:00 Document Registration [id number] 03/17/2019 09:00:00 Document Registration [id number] 12/06/2018 15:15:00 Document Registration [id number] 10/27/2018 10:45:00 Document Registration [id number] 12/12/2015 22:15:00 17:51:00 DIS Inpatient JOSE MORLEY [facility] [id number] 12/13/2015 00:41:09 Document Registration [id number] 12/20/2019 13:26:00 ACT Unknown [id number] 01/18/2020 12:23:00 23:59:59 CLS Outpatient Suha'ADDY COLIN APRN [facility] RAD FS LT SIDED CHEST WALL JOANNE N [id number] 01/14/2020 13:20:00 17:20:00 DIS Inpatient DARION VERAS DO, V [facility] 4TH CHEST PAIN, UTI [id number] 01/13/2020 15:40:00 23:59:59 CLS Outpatient ADDY SMART APRN [facility] RAD FS R30.0 N30.01 [id number] 12/20/2019 15:37:00 16:47:00 DIS Outpatient GREY MEJIA, MARÍA Torres [facility] ER FS TROUBLE URINATING,BLOAT ING [id number] 12/15/2019 18:15:00 20:38:00 DIS Outpatient MAGALIE JOSÉ MD [facility] ER FS TROUBLE BREATHING,BACK/ LUNG PAIN [id number] 12/08/2019 14:51:00 23:59:59 CLS Outpatient ADDY SMART APRN [facility] LAB FS ACUTE CYSTITIS WITH HEM ATURIA [id number] 12/05/2019 15:55:00 020 12:50:00 DIS Inpatient RITO COHNDARION V [facility] 4TH ACUTE KIDNEY INJURY,ACU TE UTI [id number] 12/30/2018 22:42:00 019 05:32:00 DIS Emergency MAGALIE JOSÉ MD [facility] ER FS ABD AND BACK PAIN [id number] 09/18/2018 21:59:00 019 22:48:00 DIS Emergency STEVE ROWLEY DO [facility] ER FS RIGHT LEG PAIN [id number] 02/16/2020 16:15:00 Document Registration [id number] 02/14/2019 00:00:00 02/14/2019 15:06: 00 DIS Outpatient Prateek Hammond [id number] 02/08/2019 12:27:00 02/08/2019 23:59: 00 DIS Outpatient Prateek Hammond [id number] 01/27/2019 11:34:00 01/27/2019 15:00: 00 DIS Outpatient ELADIO PERRY APRN [id number] 12/31/2018 06:06:00 12/31/2018 16:30: 00 DIS Outpatient Prateek Hammond [facility] MED-SURG [id number] 12/31/2018 07:31:06 Document Registration
[2020-02-16] MEDS ORDERED: KETOROLAC 30 MG/ML VIAL IVP STA (17:49)
--- NOTE | 2020-02-16 19:24 | ED General ---
General Chief Complaint: Abdominal/GI Problems Stated Complaint: ABD PAIN,CHEST PAIN Nursing Triage Note: PT C/O NAUSEA X 2 DAYS. VAIGINAL BLEEDING SPOTTING X 1 WEEK. RT LOWER QUAD PAIN-STATES SHE HAS A OVARIAN CYSTS. HARD BM TODAY Nursing Sepsis Screen: No Definite Risk Source of Information: Patient History of Present Illness Date Seen by Provider: Feb 16, 2020 Time Seen by Provider: 19:24 Initial Comments 54-year-old female presenting with complaints of recurrent lower abdominal pain as well as intermittent sharp chest pain. She also has had intermittent vaginal spotting. She states this feels similar to when she's had ovarian cysts in the past. She has recently been evaluated for chest pain and had a normal stress test. She has not followed up yet with Dr. Pires or gynecology for ovarian cyst. She states that she was waiting on records to get transferred to Dr. Cardoso and Dr. Pires to have evaluation and exploratory surgery and treatment for abdominal hernia. She denies any fever or chills. She was concerned because the pain kept getting worse today. She does have pain medicine at home but didn't feel it was helping. She has had recurrent urinary tract infections and was worried that that might be causing some of her symptom as well. Allergies and Home Medications Allergies Coded Allergies: hydrocodone (Verified Allergy, Unknown, 12/05/19) latex (Verified Allergy, Unknown, 12/05/19) morphine (Verified Allergy, Unknown, 12/05/19) Uncoded Allergies: PENICILLIN (Allergy, Intermediate, 12/05/19) PLASTIC TAPE (Allergy, Mild, 12/05/19) Home Medications Albuterol Sulfate 1 Puff Puff, 2 PUFF PO Q4H PRN for SHORTNESS OF BREATH, (Reported) Amitriptyline HCl 25 Mg Tablet, 25 MG PO HS, (Reported) Apixaban 5 Mg Tablet, 5 MG PO BID, (Reported) Bupropion HCl 100 Mg Tablet, 100 MG PO BID, (Reported) Cariprazine Hydrochloride 3 Mg Capsule, 3 MG PO DAILY, (Reported) Cetirizine HCl 10 Mg Tablet, 10 MG PO DAILY, (Reported) Cranberry Conc/C/Bacill Coag 1 Each Tablet, 1 EACH PO DAILY, (Reported) Cyclobenzaprine HCl 10 Mg Tablet, 10 MG PO BID, (Reported) Diazepam 5 Mg Tablet, 5 MG PO HS, (Reported) Estradiol 1 Mg Tablet, 1 MG PO HS, (Reported) Fluticasone Propionate 16 Gm [place].susp, 1 SPRAY NSEACH DAILY PRN for CONGESTION, (Reported) Gabapentin 300 Mg Capsule, 300 MG PO DAILY, (Reported) Gabapentin 300 Mg Capsule, 600 MG PO HS, (Reported) TAKES 2 (300NG) TABS Ibuprofen 200 Mg Tablet, 400 MG PO Q8H PRN for PAIN-MILD (1-4), (Reported) Ipratropium/Albuterol Sulfate 3 Ml Ampul.neb, 1 VIAL NEB Q6H PRN for SHORTNESS OF BREATH, (Reported) L.acidoph & Paracasei,B.lactis 1 Each Capsule, 1 EACH PO BID Prescribed by: MARÍA EDMONDS on 12/20/19 5203 Lisinopril 10 Mg Tablet, 10 MG PO DAILY, (Reported) [place] Carbonate 300 Mg Capsule, 600 MG PO HS, (Reported) TAKES 2 (300MG) CAPS AT BEDTIME [place] Carbonate 300 Mg Capsule, 300 MG PO DAILY, (Reported) Metformin HCl 500 Mg Tablet, 500 MG PO DAILY, (Reported) Mometasone Furoate 110 Mcg Aer.pow.ba, 2 PUFF IH BID PRN for SHORTNESS OF BREATH, (Reported) Montelukast Sodium 10 Mg Tablet, 10 MG PO HS, (Reported) Naloxone HCl 4 Mg [place], 1 SPRAY NS UD PRN for OPIOID OVERDOSE, (Reported) [place]-3/Dha/Epa/Fish Oil 1 Each Capsule, 1 EACH PO DAILY, (Reported) Potassium Chloride 10 Meq Tab.er.prt, 10 MEQ PO BID WITH MEALS, (Reported) Pregabalin 150 Mg Capsule, 150 MG PO BID, (Reported) Tramadol HCl 50 Mg Tablet, 50-100 MG PO TID PRN for PAIN-MODERATE (5-7), (Reported) Trazodone HCl 100 Mg Tablet, 100-200 MG PO HS PRN for SLEEP, (Reported) TAKES 1 TO 2 (100MG) TABS AT BEDTIME Triamterene/Hydrochlorothiazid 1 Each Tablet, 1 EACH PO HS, (Reported) Patient Home Medication List Home Medication List Reviewed: Yes Review of Systems Review of Systems Constitutional: No chills, No fever; malaise EENTM: no symptoms reported Respiratory: no symptoms reported Cardiovascular: chest pain (intermittent sharp chest pain in chest) Gastrointestinal: see HPI Genitourinary: frequency Musculoskeletal: no symptoms reported Skin: no symptoms reported Psychiatric/Neurological: Anxiety Hematologic/Lymphatic: No Symptoms Reported Immunological/Allergic: no symptoms reported Past Sarrcwq-Xkukxg-Jfaugk Hx Past Med/Social Hx: Reviewed Nursing Past Med/Soc Hx Patient Social History Alcohol Use: Denies Use Recreational Drug Use: No Type Used: Cigarettes Former Smoker, Quit: Jul 06, 1993 2nd Hand Smoke Exposure: No Recent Foreign Travel: No Contact w/Someone Who Travel: No Recent Infectious Disease Expo: No Recent Hopitalizations: No Physical Abuse: No Sexual Abuse: No Mistreated: No Fear: No Immunizations Up To Date Date of Pneumonia Vaccine: May 06, 2019 Date of Influenza Vaccine: Apr 05, 2018 Seasonal Allergies Seasonal Allergies: No Past Medical History Surgeries: Yes (hemorrhoidecotomy, bladder pin-up, hernia repairs with mesh) Appendectomy, Gallbladder, 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 Respiratory: Yes Asthma, Pulmonary Embolism, COPD Cardiac: Yes Deep Vein Thrombosis, Hypertension 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 Genitourinary: Yes Bladder Infection, Kidney Stones, UTI-Chronic Gastrointestinal: Yes Hemorrhoids Musculoskeletal: Yes Fibromyalgia Endocrine: Yes Diabetes, Non-Insulin dep HEENT: No Cancer: No Psychosocial: Yes Anxiety, Depression Integumentary: No Blood Disorders: Yes (Factor 5) Family Medical History Cardiovascular disease 19 MOTHER Colon cancer 19 FATHER G8 BROTHER G8 BROTHER Diabetes mellitus 19 MOTHER G8 BROTHER Physical Exam Vital Signs Vital Signs - First Documented 02/16/20 15:40 Temp 36.7 Pulse 89 Resp 14 B/P (MAP) 98/52 (67) Pulse Ox 96 O2 Delivery Room Air Capillary Refill : Less Than 3 Seconds Height, Weight, BMI Height: 5'2.00" Weight: 180lbs. oz. 81.141756cg; 38.00 BMI Method:Estimated General Appearance: WD/WN, Anxious, Obese HEENT: PERRL/EOMI, Pharynx Normal Neck: Full Range of Motion, Normal Inspection, Non Tender, Supple Respiratory: Chest Non Tender, Lungs Clear, Normal Breath Sounds Cardiovascular: Regular Rate, Rhythm, Normal Peripheral Pulses Gastrointestinal: Normal Bowel Sounds, No Pulsatile Mass, Soft, Tenderness (RLQ and midline abdomen where she has a ventral hernia) Extremity: Normal Capillary Refill, Normal Inspection, Non Tender, No Pedal Edema Neurologic/Psychiatric: Alert, Oriented x3, No Motor/Sensory Deficits Skin: Normal Color, Warm/Dry Progress/Results/Core Measures Suspected Sepsis Recent Fever Within 48 Hours: No Infection Criteria Present: None New/Unexplained Altered Menta: No Sepsis Screen: No Definite Risk SIRS Temperature: Pulse: 89 Respiratory Rate: 14 Laboratory Tests 02/16/20 15:40: White Blood Count 10.0 Blood Pressure 98 /52 Mean: 67 Laboratory Tests 02/16/20 15:40: Creatinine 0.76, INR Comment 1.0, Platelet Count 365, Total Bilirubin 0.2 Results/Orders Lab Results Laboratory Tests Test 02/16/20 15:40 Range/Units White Blood Count 10.0 4.3-11.0 10^3/uL Red Blood Count 4.29 L 4.35-5.85 10^6/uL Hemoglobin 12.2 11.5-16.0 G/DL Hematocrit 38 35-52 % Mean Corpuscular Volume 89 80-99 FL Mean Corpuscular Hemoglobin 28 25-34 PG Mean Corpuscular Hemoglobin Concent 32 32-36 G/DL Red Cell Distribution Width 13.8 10.0-14.5 % Platelet Count 365 130-400 10^3/uL Mean Platelet Volume 9.1 7.4-10.4 FL Neutrophils (%) (Auto) 56 42-75 % Lymphocytes (%) (Auto) 34 12-44 % Monocytes (%) (Auto) 7 0-12 % Eosinophils (%) (Auto) 3 0-10 % Basophils (%) (Auto) 0 0-10 % Neutrophils # (Auto) 5.6 1.8-7.8 X 10^3 Lymphocytes # (Auto) 3.4 1.0-4.0 X 10^3 Monocytes # (Auto) 0.7 0.0-1.0 X 10^3 Eosinophils # (Auto) 0.3 0.0-0.3 10^3/uL Basophils # (Auto) 0.0 0.0-0.1 10^3/uL Prothrombin Time 13.0 12.2-14.7 SEC INR Comment 1.0 0.8-1.4 Activated Partial Thromboplast Time 29 24-35 SEC Urine Color YELLOW Urine Clarity CLEAR Urine pH 6.0 5-9 Urine Specific [place] 1.020 1.016-1.022 Urine Protein NEGATIVE NEGATIVE Urine Glucose (UA) NEGATIVE NEGATIVE Urine Ketones NEGATIVE NEGATIVE Urine Nitrite NEGATIVE NEGATIVE Urine Bilirubin NEGATIVE NEGATIVE Urine Urobilinogen 0.2 < = 1.0 MG/DL Urine Leukocyte Esterase 1+ H NEGATIVE Urine RBC (Auto) NEGATIVE NEGATIVE Urine RBC NONE /HPF Urine WBC 0-2 /HPF Urine Squamous Epithelial Cells 2-5 /HPF Urine Crystals NONE /LPF Urine Bacteria TRACE /HPF Urine Casts NONE /LPF Urine Mucus NEGATIVE /LPF Urine Culture Indicated NO Sodium Level 136 135-145 MMOL/L Potassium Level 3.5 L 3.6-5.0 MMOL/L Chloride Level 101 98-107 MMOL/L Carbon Dioxide Level 22 21-32 MMOL/L Anion Gap 13 5-14 MMOL/L Blood Urea Nitrogen 11 7-18 MG/DL Creatinine 0.76 0.60-1.30 MG/DL Estimat Glomerular Filtration Rate > 60 BUN/Creatinine Ratio 14 Glucose Level 143 H 70-105 MG/DL Calcium Level 9.1 8.5-10.1 MG/DL Corrected Calcium 9.2 8.5-10.1 MG/DL Magnesium Level 1.9 1.6-2.4 MG/DL Total Bilirubin 0.2 0.1-1.0 MG/DL Aspartate Amino Transf (AST/SGOT) 16 5-34 U/L Alanine Aminotransferase (ALT/SGPT) 15 0-55 U/L Alkaline Phosphatase 75 40-136 U/L Troponin I < 0.30 <0.30 NG/ML Pro-B-Type Natriuretic Peptide 37.5 <75.0 PG/ML Total Protein 7.1 6.4-8.2 GM/DL Albumin 3.9 3.2-4.5 GM/DL Lipase 29 8-78 U/L My Orders Orders - MAGALIE JOSÉ MD Cbc With Automated Diff (02/16/20 16:06) Magnesium (02/16/20 16:06) Chest 1 View Ap/Pa Only (02/16/20 16:06) Ekg Tracing (02/16/20 16:06) Comprehensive Metabolic Panel (02/16/20 16:06) Protime With Inr (02/16/20 16:06) Partial Thromboplastin Time (02/16/20 16:06) O2 (02/16/20 16:06) Monitor-Rhythm Ecg Trace Only (02/16/20 16:06) Ed Iv/Invasive Line Start (02/16/20 16:06) Lipase (02/16/20 16:06) Troponin I Fs (02/16/20 16:06) Probnp Fs (02/16/20 16:06) Ua Culture If Indicated (02/16/20 16:06) Fentanyl Injection (Sublimaze Injection (02/16/20 16:45) Ondansetron Injection (Zofran Injectio (02/16/20 16:45) Ketorolac Injection (Toradol Injection) (02/16/20 17:49) Fentanyl Injection (Sublimaze Injection (02/16/20 19:44) Ondansetron Injection (Zofran Injectio (02/16/20 19:44) Medications Given in ED Current Medications Medications Dose Ordered Sig/Ren Route Start Time Stop Time Status Last Admin Dose Admin Fentanyl Citrate 50 mcg ONCE ONCE IVP 02/16/20 16:45 02/16/20 16:46 DC 02/16/20 16:39 50 MCG Ondansetron HCl 4 mg ONCE ONCE IVP 02/16/20 16:45 02/16/20 16:46 DC 02/16/20 16:39 4 MG Vital Signs/I&O 02/16/20 02/16/20 15:40 19:53 Temp 36.7 Pulse 89 77 Resp 14 18 B/P (MAP) 98/52 (67) 92/53 Pulse Ox 96 95 O2 Delivery Room Air Room Air Capillary Refill : Less Than 3 Seconds Blood Pressure Mean: 67 Progress Note #1: Progress Note check labs, urine and ECG with CXR. Progress Note #2: Progress Note Labs all appear stable and no elevation of Troponin for her intermittent chest pain all day. Urine has 1+LE but no finding consistent with UTI. CXR clear. ECG stable without acute significant findings. Encouraged to follow up with Dr. Pires and surgery about the pain and bleeding. May need to have exploratory surgery to find source. She did not want to wait for a CT scan to evaluate her pain. During the day an ultrasound may be helpful or she could go to [facility] and see about having one done or seeing the clinic about this. ECG Initial ECG Impression Date: Feb 16, 2020 Initial ECG Impression Time: 15:49 Initial ECG Rate: 86 Initial ECG Rhythm: Normal Sinus Initial ECG Comparisson: Unchanged Comment Sinus rhythm with a heart rate of 86 bpm. Nonspecific intraventricular conduction delay. [place] interval 154 ms. QT interval 404 ms. QTc interval [address] elevation. This appears similar to prior tracings in the system. Diagnostic Imaging Diagonstic Imaging: Xray Plain Films/CT/US/NM/MRI: chest Comments [facility]. [place], [place] NAME: NICKIE CHUA [facility] REC#: [id number] PT STATUS: REG ER : 1965 PHYSICIAN: MAGALIE JOSÉ MD ADMIT DATE: 02/16/20/ER FS Signed Date of Exam:02/16/20 CHEST 1 VIEW AP/PA ONLY INDICATION: Chest pain/abdominal pain. COMPARISON: 01/14/2020. FINDINGS: Single frontal view of the chest demonstrates normal heart size and pulmonary vascularity. The lungs are well aerated and clear. No large pleural effusion or pneumothorax is seen. The visualized osseous structures show no acute abnormalities. IMPRESSION: 1. No acute cardiopulmonary process. Dictated by: Dictated on workstation # [id number] Dict: 02/16/20 1650 Trans: 02/16/20 1702 [facility] [id number] Interpreted by: EHBERT LOCKHART MD Electronically signed by: HEBERT LOCKHART MD 02/16/20 1702 Departure Impression Primary Impression: Pelvic pain in female Additional Impression: Pleuritic chest pain Disposition: 01 HOME, SELF-CARE Condition: Stable Departure-Patient Inst. Decision time for Depature: 19:52 Referrals: [facility] [place] (PCP) Primary Care Physician ADDY SMART APRN (Family) Primary Care Physician KEVIN PIRES DO Patient Instructions: Chronic Pelvic Pain (DC), Pleuritic Chest Pain (DC) Add. Discharge Instructions: Follow up with Dr. Pires about the pelvic pain and intermittent vaginal bleeding All discharge instructions reviewed with patient and/or family. Voiced understanding. Images Torso/Trunk 1 - Moderate (pain with palpation to Right lower abdomen) MAGALIE JOSÉ MD Feb 16, 2020 19:24
[2020-02-16] MEDS ORDERED: ONDANSETRON 4 MG/2 ML (SDV) Z0FRAN IVP STA (19:44)
[2020-02-16] MEDS ORDERED: fentaNYL INJECTION 100 MCG/2 ML AMP IVP STA (19:44)
[2020-02-16 19:53] VITALS: BP 92/53
== END 2020-02-16 19:57 | disposition home or self-care (01) ==
LOC: EDUNIT# 15:29 → ER FS 15:30
DX: R10.2 Pelvic and perineal pain (principal); R07.81 Pleurodynia; I10 Essential (primary) hypertension; J44.9 Chronic obstructive pulmonary disease, unspecified; M79.7 Fibromyalgia; E11.9 Type 2 diabetes mellitus without complications; F41.9 Anxiety disorder, unspecified; F32.9 Major depressive disorder, single episode, unspecified; Z88.5 Allergy status to narcotic agent; Z91.040 Latex allergy status; Z88.0 Allergy status to penicillin; Z88.8 Allergy status to other drugs, medicaments and biological substances; Z79.01 Long term (current) use of anticoagulants; Z79.52 Long term (current) use of systemic steroids; Z79.51 Long term (current) use of inhaled steroids; Z79.84 Long term (current) use of oral hypoglycemic drugs; Z87.891 Personal history of nicotine dependence; Z86.711 Personal history of pulmonary embolism; Z86.718 Personal history of other venous thrombosis and embolism; Z80.0 Family history of malignant neoplasm of digestive organs; Z82.49 Family history of ischemic heart disease and other diseases of the circulatory system
CPT/HCPCS: 36415; 71045; 80053; 81000; 83690; 83735; 83880; 84484; 85025; 85610; 85730; 93005; 93041

== ENCOUNTER → 2020-04-03 | Outpatient (CLI) | payer OTHER ==
[~2020-04-03] MED LIST changes: -CETI10TA21 PO; +CETI10TA49 PO; +HOLD METFORMIN - RECEIVED CONTRAST 20 ML VIAL IV SCH; +IOHEXOL 350 MG/ML 100 ML (OMNIPAQUE 350) VIAL IV ONE; +NS 100 ML (IVPB) BAG IV ONE
[2020-04-03 13:05] LABS: ALANINE AMINOTRANSFERASE 15 U/L (0-55); ALBUMIN 3.9 GM/DL (3.2-4.5); ALKALINE PHOSPHATASE 72 U/L (40-136); BILIRUBIN,TOTAL 0.4 MG/DL (0.1-1.0); BUN/CREATININE RATIO 17; CALCIUM 8.8 MG/DL (8.5-10.1); CARBON DIOXIDE 23 MMOL/L (21-32); CHLORIDE 105 MMOL/L (98-107); CREATININE SERUM 0.69 MG/DL (0.60-1.30); GFR ESTIMATED > 60; GLUCOSE 82 MG/DL (70-105); POTASSIUM 3.6 MMOL/L (3.6-5.0); SODIUM 139 MMOL/L (135-145); TOTAL PROTEIN 7.2 GM/DL (6.4-8.2)
--- NOTE | 2020-04-03 13:40 | Diagnostic Imaging Report ---
INDICATION: Recurrent urinary tract infections. TECHNIQUE: Precontrast acquisitions were acquired through the abdomen and pelvis. Multiple contiguous axial images were obtained through the abdomen and pelvis after the administration of intravenous contrast. Auto Exposure Controls were utilized during the CT exam to meet ALARA standards for radiation dose reduction. COMPARISON: 12/05/2019. FINDINGS: The visualized portions of the lung bases are clear. There are no pleural fluid collections. There is no free intraperitoneal air. The liver shows no focal lesions. The patient has had prior cholecystectomy. The spleen, adrenals, and pancreas are normal. The kidneys bilaterally show no radiopaque calculi or hydronephrosis. There is a tiny cyst in the left kidney posteriorly. This measures well below 1 cm in size. The kidneys are otherwise normal in appearance. There is no retroperitoneal mass or adenopathy. There is no ascites or abnormal fluid collection. The visualized bowel loops appear unremarkable. There is a fat-containing periumbilical hernia. There is no pelvic mass or free fluid. The patient has had previous hysterectomy. The cystic lesion in the right side of the pelvis seen on 12/05/2019 had measured 2.9 cm and now measures essentially the same. IMPRESSION: No acute abnormalities in the abdomen or pelvis. There is a tiny left renal cyst. There is no renal stone, hydronephrosis, or solid mass lesion. The urinary bladder appears grossly unremarkable. There is no change in the fat-containing periumbilical hernia. There is no change in the 2.9 cm cystic lesion in the right side of the pelvis compared to the prior study of 12/05/2019. Dictated by: Dictated on workstation # [id number]
--- NOTE | 2020-04-03 13:58 | Diagnostic Imaging Report ---
EXAMINATION: Pelvic ultrasound non-OB limited. INDICATION: Hematuria, urinary tract infection. FINDINGS: This study was performed to evaluate the bladder. The bladder was visualized and is fairly well distended. There is no obvious bladder mass evident and both ureteral jets were noted. The pre-voiding bladder volume was 228 cc. Following voiding, there was virtually no urine within the bladder. IMPRESSION: 1. There is no evidence for a mass within the bladder and there is no sign of an acute abnormality. 2. There was good clearing of the urine from the bladder following voiding. Dictated by: Dictated on workstation # [id number]
== END ==
LOC: RAD 12:45
PROVIDERS: ATTEND Urology
DX: N39.0 Urinary tract infection, site not specified (principal); N20.0 Calculus of kidney
CPT/HCPCS: 36415; 74178; 76857; 80053

== ENCOUNTER → 2020-05-14 | Outpatient (CLI) | payer OTHER ==
[~2020-05-14] MED LIST changes: -HOLD METFORMIN - RECEIVED CONTRAST 20 ML VIAL IV SCH; -IOHEXOL 350 MG/ML 100 ML (OMNIPAQUE 350) VIAL IV ONE; -NS 100 ML (IVPB) BAG IV ONE; +RT-ALBUTEROL SULF 2.5 MG/3 ML PRE-MIX VIAL INH ONE
== END ==
LOC: RT 14:00
PROVIDERS: ATTEND Nurse Practitioner Family
DX: I51.7 Cardiomegaly (principal)
CPT/HCPCS: 93306; 94060; 94726; 94729

== ENCOUNTER 2020-07-03 09:00 | Day surgery (SDC) | payer OTHER ==
[~2020-07-03] VITALS: Ht 154.9 cm; Wt 92.7 kg
[2020-07-03] VITALS (11 sets, daily range): BP systolic 115–161; BP diastolic 75–106
[2020-07-03 08:25] LABS: HEMOGLOBIN 13.3 g/dL (11.5-16.0); MEAN PLATELET VOLUME 9.4 fL (9.0-12.2); WHITE BLOOD COUNT 9.9 10^3/uL (4.3-11.0)
[~2020-07-03 09:00] MED LIST changes: +HEParin (CATH LAB) 2,000 ML IV ONE; +LIDOCAINE 1% INJ 20 ML 20 ML VIAL ONE; -MONT10TA26 PO; +MONT10TA97 PO; +NS IV 1000 ML 1,000 ML IV SCH; +NS IV 1000 ML 1,000 ML ONE; -RT-ALBUTEROL SULF 2.5 MG/3 ML PRE-MIX VIAL INH ONE
[2020-07-03 09:12] LABS: PROTHROMBIN TIME PATIENT 13.1 SEC (12.2-14.7)
[2020-07-03] MEDS ORDERED: TRAZ300T3 PO (09:13)
[2020-07-03] MEDS ORDERED: ONDA4TAB11 PO (09:13)
[2020-07-03] MEDS ORDERED: ESTR0.62 PO (09:13)
[2020-07-03] MEDS ORDERED: CLOT15CR6 TP (09:13)
[2020-07-03] MEDS ORDERED: CALC-870 PO (09:13)
[2020-07-03] MEDS ORDERED: NITR100C PO (09:13)
[2020-07-03] MEDS ORDERED: FLUT1BLS IH (09:13)
[2020-07-03] MEDS ORDERED: TIOT18CA2 IH (09:13)
[2020-07-03] MEDS ORDERED: ATOR20TA66 PO (09:13)
[2020-07-03] MEDS ORDERED: METF-399 PO ×2 (09:13)
[2020-07-03 09:17] LABS: ALANINE AMINOTRANSFERASE 14 U/L (0-55); ALBUMIN 3.9 GM/DL (3.2-4.5); ALKALINE PHOSPHATASE 76 U/L (40-136); BILIRUBIN,TOTAL 0.5 MG/DL (0.1-1.0); BUN/CREATININE RATIO 17; CALCIUM 8.6 MG/DL (8.5-10.1); CARBON DIOXIDE 28 MMOL/L (21-32); CHLORIDE 104 MMOL/L (98-107); CHOLESTEROL 154 MG/DL (< 200); GFR ESTIMATED > 60; GLUCOSE 111 MG/DL (70-105); HDL CHOLESTEROL 47 MG/DL (40-60); POTASSIUM 3.2 MMOL/L (3.6-5.0); SODIUM 139 MMOL/L (135-145); TOTAL PROTEIN 7.2 GM/DL (6.4-8.2); TRIGLYCERIDES 351 MG/DL (<150); VLDL CHOLESTEROL 70 MG/DL (5-40)
[2020-07-03] MEDS ORDERED: MIDAZOLAM 5 MG/5 ML (VERSED) VIAL ONE (09:43)
[2020-07-03] MEDS ORDERED: fentaNYL INJECTION 100 MCG/2 ML AMP ONE (09:43)
--- NOTE | 2020-07-03 11:05 | Cardiac Procedure Note-CS/ASA ---
Pre-Procedure Note Pre-Op Procedure Note H&P Reviewed The H&P was reviewed, patient examined and no changes noted. Date H&P Reviewed: Jul 03, 2020 Time H&P Reviewed: 10:30 Conscious Sedation Pre-Proced Time 10:30 ASA Score 3 For ASA 3 and 4: Consider anesthesia and medical clearance. Also, for patients with a history of failed moderate sedation consider anesthesia. Airway Lungs Heart ASA score ASA 1: a normal healthy patient ASA 2: a patient with a mild systemic disease (mid diabetes, controlled hypertension, obesity ASA 3: a patient with a severe systemic disease that limits activity (angina, COPD, prior Myocardial infarction) ASA 4: a patient with an incapacitating disease that is a constant threat to life (CHF, renal failure) ASA 5: a moribund patient not expected to survive 24 hrs. (ruptured aneurysm) ASA 6: a declared brain- patient whose organs are being harvested. For emergent operations, add the letter E after the classification Mallampati Classification Grade 3 Sedation Plan Analgesia, Amnesia, Plan communicated to team members, Discussed options with patient/fam, Discussed risks with patient/fam The patient is an appropriate candidate to undergo the planned procedure, sedation, and anesthesia. The patient immediately re-assessed prior to indication. SORAYA DE LA TORRE MD FACP FAC CCDS Jul 03, 2020 11:05
[2020-07-03] MEDS ORDERED: POTA-51 PO (11:12)
[2020-07-03] MEDS ORDERED: FURO40TA4 PO (11:12)
--- NOTE | 2020-07-03 11:13 | Discharge Inst-Cardiology ---
Discharge Inst-Cardiac Discharge Medications New Medications: Furosemide (Furosemide) 40 Mg Tablet 40 MG PO DAILY for 30 Days, #30 TAB 5 Refills Potassium Chloride (Potassium Chloride) 20 Meq Tablet.er 20 MEQ PO BID, #60 TAB 5 Refills Continued Medications: Albuterol Sulfate (Proair Hfa) 1 Puff Puff 2 PUFF PO Q4H PRN for SHORTNESS OF BREATH, EA Apixaban (Eliquis) 5 Mg Tablet 5 MG PO BID, TAB Atorvastatin Calcium (Atorvastatin Calcium) 20 Mg Tablet 20 MG PO DAILY, TAB Calcium Carbonate (Tums X-Str) 300 Mg Tab.chew 600 MG PO DAILY, TAB Cariprazine Hydrochloride (Vraylar) 3 Mg Capsule 3 MG PO DAILY, CAP Cetirizine HCl (Zyrtec) 10 Mg Tablet 10 MG PO DAILY, TAB Clotrimazole/Betamethasone Dip (Clotrimazole-Betamethasone Crm) 15 Gm Cream..g. 15 GM TP DAILY PRN for RASH, TUBE Cranberry Conc/C/Bacill Coag (Azo Cranberry Tablet) 1 Each Tablet 1 EACH PO DAILY, TAB Cyclobenzaprine HCl (Cyclobenzaprine HCl) 10 Mg Tablet 10 MG PO BID, TAB Diazepam (Diazepam) 5 Mg Tablet 5 MG PO HS, TAB Estradiol (Estrace Tablet) 1 Mg Tablet 1 MG PO HS, TAB Estrogens, Conjugated (Premarin) 0.625 Mg Tablet 0.625 MG PO WEEK, TAB Fluticasone Propionate (Fluticasone Propionate) 16 Gm [place].susp 1 SPRAY NSEACH DAILY PRN for CONGESTION, EACH Fluticasone/Vilanterol (Breo Ellipta 200-25 Mcg INH) 1 Each Blst.w.dev 1 EACH IH DAILY Gabapentin (Neurontin) 300 Mg Capsule 300 MG PO MORNING AND NOON, CAP Gabapentin (Neurontin) 300 Mg Capsule 600 MG PO HS, CAP TAKES 2 (300NG) TABS Ipratropium/Albuterol Sulfate (Iprat-Albut 0.5-3(2.5) mg/3 ml) 3 Ml Ampul.neb 1 VIAL NEB Q6H PRN for SHORTNESS OF BREATH, EA L.acidoph & Paracasei,B.lactis (Probiotic) 1 Each Capsule 1 EACH PO BID for 14 Days, #28 CAP 0 Refills [place] Carbonate ([place] Carbonate) 300 Mg Capsule 600 MG PO HS, CAP TAKES 2 (300MG) CAPS AT BEDTIME [place] Carbonate ([place] Carbonate) 300 Mg Capsule 300 MG PO DAILY, CAP Montelukast Sodium (Montelukast Sodium) 10 Mg Tablet 10 MG PO HS, TAB Naloxone HCl (Narcan) 4 Mg [place] 1 SPRAY NS UD PRN for OPIOID OVERDOSE, SPRAY Nitrofurantoin Macrocrystal (Nitrofurantoin) 100 Mg Capsule 100 MG PO DAILY, CAP Ondansetron (Ondansetron Odt) 4 Mg Tab.rapdis 4 MG PO Q8H PRN for NAUSEA/VOMITING, TAB Pregabalin (Pregabalin) 150 Mg Capsule 150 MG PO BID, CAP Tiotropium [place] (Spiriva) 1 Inh Aerp 2 INH IH DAILY, INHALER Tramadol HCl (Tramadol HCl) 50 Mg Tablet 50-100 MG PO TID PRN for PAIN-MODERATE (5-7), TAB Trazodone HCl (Trazodone HCl) 300 Mg Tablet 300 MG PO HS PRN for INSOMNIA, TAB Discontinued Medications: Ibuprofen (Ibuprofen) 200 Mg Tablet 400 MG PO Q8H PRN for PAIN-MILD (1-4), TAB Metformin HCl (Metformin HCl) 1,000 Mg Tablet 1000 MG PO DAILY, TAB Metformin HCl (Metformin HCl) 1,000 Mg Tablet 500 MG PO EVENING, TAB 1000 MG IN AM, TAKE HALF TABLET 500 MG IN EVENING Potassium Chloride (Potassium Chloride) 10 Meq Tab.er.prt 10 MEQ PO BID WITH MEALS, TAB Triamterene/Hydrochlorothiazid (Triamterene-Hctz 75-50 mg Tab) 1 Each Tablet 1 EACH PO HS, TAB Patient Instructions Patient Instructions: Do not take METFORMIN until the mroning of 07/06/2020; then resume previous home dose SORAYA DE LA TORRE MD FACP FAC CCDS Jul 03, 2020 11:13
--- NOTE | 2020-07-03 11:14 | Discharge Inst-Post CATH ---
Discharge Inst-CATH/EP Post Cardiac Cath/EP D/C Inst Follow Up/Plan Do not take METFORMIN until the mroning of 07/06/2020; then resume previous home dose Follow up with Dr Valdes in 2 weeks ACTIVITY * Go Home directly and rest. * Limit activity of the leg (or wrist if it was used) for 7 days including aerobics, swimming, jogging, bicycling, etc. * Restrict stair-climbing for 7 days if possible, if not, climb up with your non-cath leg, then bring together on the same step. * Avoid lifting, pushing, pulling or excessive movement of the affected extremity for 7 days. * Customary sexual activity may be resumed after 2 days-use caution not to use a position that strains or causes pain to the affected extremity. * No driving for 24 hours. * NO SMOKING. * Avoid straining for bowel movements for 7 days. * Gentle walking on level ground is allowed. * Returning to work will depend on the type of procedure and the results. Your doctor will discuss this with you. CALL YOUR DOCTOR FOR ANY OF THE FOLLOWING: *If bleeding from the puncture site occurs- Apply gentle pressure to site with c lean cloth and call your doctor or EMS. * If a knot or lump forms under the skin, increases in size, or causes pain. * If bruising appears to be worsening or moving further down your leg instead of disappearing. * Temperature above 101 F. CARE OF YOUR GROIN INCISION; * Bruising or purple discoloration of the skin near the puncture site is common. * You may shower only, no bathtub bathing for 5 days. Be careful to avoid slipping as your leg may feel stiff. * If a closure device was used on your femoral artery, please see the attached guide regarding care of the device and your leg. * Leave dressing on FOR 24 hours. CARE OF YOUR WRIST INCISION; * Bruising or purple discoloration of the skin near the puncture site is common. * You may shower. * DO NOT submerge wrist. * Leave dressing on FOR 24 hours. SORAYA VALDES MD [facility] CCDS Jul 03, 2020 11:14
[2020-07-03] MEDS ORDERED: PATIENT MAY USE OWN MEDS, ALL PO SCH (11:15)
[2020-07-03] MEDS ORDERED: NS IV 1000 ML 1,000 ML IV SCH (11:15)
[2020-07-03] MEDS ORDERED: KCL 20 MEQ TAB (K-DUR) PO NR (11:30)
--- NOTE | 2020-07-03 13:20 | CARDIAC CATHETERIZATION ---
DATE OF SERVICE: 07/03/2020 CARDIAC CATHETERIZATION REPORT The patient is a 54-year-old lady who has had progressive exertional shortness of breath for the last several months. She has multiple coronary artery disease risk factors as well. Complete heart catheterization was recommended for evaluation of her progressive symptoms of shortness of breath. Informed consent was obtained. DESCRIPTION OF PROCEDURE: She was brought to the cardiac catheterization laboratory in a fasting state. Right groin was prepared and draped in the usual sterile fashion. Lidocaine 1% was used for local anesthesia. Modified Seldinger technique was used to advance a 7-Eritrean sheath in the right femoral vein and 5-Eritrean sheath in the right femoral artery. We used a 7-Eritrean Outlook-Julien catheter to carry out right heart catheterization. Oxygen saturation was also measured in the various right heart chambers. The Outlook-Julien catheter was then removed. We carried out left heart catheterization with a 5-Eritrean pigtail catheter. Left ventricular angiography was performed. The pigtail catheter was pulled back and removed. We then performed coronary angiography. We used 5-Eritrean JL4 catheter for left coronary angiography, 5-Eritrean JR4 catheter for right coronary angiography. The catheters were removed. Angiography of the right femoral artery was carried out through the sheath. Mynx was used to achieve hemostasis. She tolerated the procedure well. HEMODYNAMICS: Pulmonary artery pressure was 50/28 with a mean of 37 mmHg. Mean pulmonary wedge pressure was 20 mmHg. Right ventricular pressure was 49/20. Right atrial mean pressure was 14 mmHg. Left ventricular end-diastolic pressure was 20 mmHg. There is no significant pressure gradient on pullback across the aortic valve. Ascending aortic pressure was 153/99 with a mean 84 mmHg. Cardiac output by thermodilution was 4.97 and the cardiac index was 2.61. Pulmonary vascular resistance was calculated to be 4.13 Wood units. There was no significant oxygen saturation difference between the various right heart chambers. LEFT VENTRICULAR ANGIOGRAPHY: Left ventricular angiography was carried out in the right anterior oblique projection. Global left ventricular systolic function normal. Left ventricular ejection fraction estimated to be approximately 60% to 65%. CORONARY ANGIOGRAPHY: Left main coronary artery, left anterior descending artery, left circumflex artery, right coronary artery do not exhibit any angiographically significant disease. Right coronary artery is dominant. CONCLUSIONS: 1. This study is indicative of moderate pulmonary hypertension that appears to be due to diastolic heart failure. 2. Normal global left ventricular systolic function with ejection fraction of 60% to 65%. 3. No significant coronary artery disease is seen on this study. DISCUSSION AND RECOMMENDATIONS: Current regimen, including diuretics, is being continued. We have advised evaluation for sleep apnea. Close outpatient followup is advised. Job ID: [id number] DocumentID: [id number] Dictated Date: 07/03/2020 11:03:54 Police Manager Date: 07/03/2020 13:19:58 Dictated By: SORAYA DE LA TORRE MD, MA, FACP, FACC,
== END 2020-07-03 14:33 | disposition home or self-care (01) ==
LOC: CATH 09:00 → SDC 11:27 → CATH 14:33
PROVIDERS: ATTEND Internal Medicine Cardiovascular Disease
DX: I27.20 Pulmonary hypertension, unspecified (principal); I50.30 Unspecified diastolic (congestive) heart failure; E11.9 Type 2 diabetes mellitus without complications; E78.5 Hyperlipidemia, unspecified; J44.9 Chronic obstructive pulmonary disease, unspecified; I07.1 Rheumatic tricuspid insufficiency; I11.9 Hypertensive heart disease without heart failure; Z79.899 Other long term (current) drug therapy; Z79.51 Long term (current) use of inhaled steroids; Z79.01 Long term (current) use of anticoagulants; Z88.0 Allergy status to penicillin; Z88.5 Allergy status to narcotic agent; Z91.040 Latex allergy status; Z91.048 Other nonmedicinal substance allergy status; Z90.710 Acquired absence of both cervix and uterus; Z87.891 Personal history of nicotine dependence
CPT/HCPCS: 80053; 80061; 85027; 85610; 85730; 87081; 93460; C1760; C1894 ×2; 36415

== ENCOUNTER 2020-10-29 05:36 | Outpatient (RCR) | payer OTHER ==
[~2020-10-29] VITALS: Ht 155 cm; Wt 93.4 kg
[~2020-10-29 05:36] MED LIST changes: +ATOR20TA66 PO; +CALC-870 PO; +CLOT15CR6 TP; +ESTR0.62 PO; +FLUT1BLS IH; +FURO40TA4 PO; -HEParin (CATH LAB) 2,000 ML IV ONE; -LIDOCAINE 1% INJ 20 ML 20 ML VIAL ONE; -LISI10TA2 PO; +LISI10TA25 PO; +METF-399 PO; +MONT10TA32 PO; -MONT10TA97 PO; +NITR100C PO; -NS IV 1000 ML 1,000 ML IV SCH; -NS IV 1000 ML 1,000 ML ONE; +ONDA4TAB11 PO; -OXYC-471 PO; +OXYC1TAB11 PO; +POTA-51 PO; +TIOT18CA2 IH; +TRAZ300T3 PO
[2020-10-29] MEDS ORDERED: EST30C VG (12:35)
== END 2020-10-29 13:42 | disposition home or self-care (01) ==
LOC: PREOP 05:36
PROVIDERS: ATTEND Surgery
DX: Z01.818 Encounter for other preprocedural examination (principal)

== ENCOUNTER → 2020-11-01 | Outpatient (CLI) | payer OTHER ==
[~2020-11-01] MED LIST changes: +EST30C VG
== END ==
LOC: LAB FS 10:30
PROVIDERS: ATTEND Surgery
DX: Z01.812 Encounter for preprocedural laboratory examination (principal); R10.9 Unspecified abdominal pain; R11.0 Nausea; Z20.822 Contact with and (suspected) exposure to COVID-19
CPT/HCPCS: 87635

== ENCOUNTER 2020-11-05 07:51 | Day surgery (SDC) | payer OTHER ==
[~2020-11-05] VITALS: Ht 155 cm; Wt 93.4 kg
[2020-11-05] MEDS ORDERED: LACTATED RINGERS 1,000 ML IV ONE (07:52)
[2020-11-05] MEDS ORDERED: LACTATED RINGERS 1,000 ML IV STA (07:58)
[2020-11-05] MEDS ORDERED: HURRICAINE EXT TUBE (BENZOCAINE) XX PRN (08:00)
[2020-11-05 08:17] VITALS: BP 163/104
--- NOTE | 2020-11-05 08:31 | Progress Note-Pre Operative ---
Pre-Operative Progress Note H&P Reviewed The H&P was reviewed, patient examined and no changes noted. Time Seen by Provider: 08:25 Date H&P Reviewed: November 05, 2020 Time H&P Reviewed: 08:25 Pre-Operative Diagnosis: Change in bowel habits, Gastritis, Family hx colon CA GIORGIO LEONARD DO November 05, 2020 08:31
[2020-11-05] MEDS ORDERED: MIDAZOLAM 2 MG/2 ML (VERSED) VIAL ONE (09:08)
[2020-11-05] MEDS ORDERED: PROPOFOL INJECTION 50 ML IV ONE (09:08)
[2020-11-05] MEDS ORDERED: proPOfol 200 MG/20 ML (DIPRIVAN) VIAL IV ONE (09:34)
[2020-11-05 10:03] VITALS: BP 165/90
[2020-11-05 10:05] VITALS: BP 149/86
--- NOTE | 2020-11-05 10:09 | Progress Note-Post Operative ---
Post-Operative Progess Note Surgeon (s)/Investor (s) Surgeon GIORGIO LEONARD DO Investor: none Pre-Operative Diagnosis Change in bowel habits, Gastritis, Family hx colon CA Post-Operative Diagnosis Gastritis Hiatal hernia Esophagitis Colon polyps int hemorrhoids Procedure & Operative Findings Date of Procedure 11/05/20 Procedure Performed/Findings EGD with bx Colon with snare Anesthesia Type IV sedation by OPERATING ROOM REGISTERED NURSE Estimated Blood Loss Estimated blood loss (mL): scant Specimens/Packing Specimens Removed antral bx body of stomach bx GE jxn bx Desc colon polyp transverse colon polyp cecal polyp GIORGIO LEONADR DO November 05, 2020 10:09
--- NOTE | 2020-11-05 10:10 | Endoscopy Discharge Instruct ---
Endo Procedure/Findings Findings 1.: Gastritis 2.: Hiatal Hernia 3.: Polyp 4.: Internal Hemorrhoids Discharge Instructions - Activity: You might feel a little sleepy until tomorrow. This is due to the medicine you received to relax you. Until tomorrow, you should: NOT drive a car, operate machinery or power tools. NOT drink any alcoholic beverages. NOT make any important decisions or sign importortant papers. Do not return to work until tomorrow, unless otherwise instructed. Resume previous activities tomorrow. Diet: Start by taking liquids. If you tolerate liquids, advance to solid food. 1.: EGD in 1 year 2.: Colonoscopy in 1 year Notify Physician - If you experience excessive bleeding, unusual abdominal pain, fever, or chest pain, contact your doctor immediately. GIORGIO LEONARD DO November 05, 2020 10:10
[2020-11-05 10:30] VITALS: BP 158/96
[2020-11-05 10:37] VITALS: BP 158/96
--- NOTE | 2020-11-05 11:17 | Anesthesia-General Post-Op ---
MAC Patient Condition Mental Status/LOC: Same as Preop Cardiovascular: Satisfactory Nausea/Vomiting: Absent Respiratory: Satisfactory Pain: Controlled Complications: Absent Post Op Complications Complications None Follow Up Care/Instructions Patient Instructions None needed. Anesthesiology Discharge Order Discharge Order Patient is doing well, no complaints, stable vital signs, no apparent adverse anesthesia problems. No complications reported per nursing. ANGIE CLARKE CRNA November 05, 2020 11:17
--- NOTE | 2020-11-05 21:35 | OPERATIVE REPORT ---
DATE OF SERVICE: PREOPERATIVE DIAGNOSES: Change in bowel habits, family history of colon cancer, and gastritis. POSTOPERATIVE DIAGNOSES: 1. Gastritis, hiatal hernia, esophagitis. 2. Colon polyps. 3. Internal hemorrhoids. PROCEDURES: 1. EGD with biopsy. 2. Colonoscopy with snare polypectomy. SURGEON: Matt Garcia DO RESTAURANT LINE SERVER: None. ANESTHESIA: IV sedation by the TELETYPEWRITER OPERATOR. SPECIMEN: Antral biopsy, body of stomach biopsy, GE junction biopsy as well as descending colon polyp, transverse colon polyp and cecal polyp. BLOOD LOSS: Scant. FLUIDS: Per anesthesia. POSTOPERATIVE CONDITION: Stable. INDICATION FOR PROCEDURE: The patient is a 55-year-old female who had some change in bowel habits, family history of colon cancer and has a history of gastritis, she needed a workup. FINDINGS: The patient had some gastritis, hiatal hernia, which was rather large and esophagitis. In the colon, she had some polyps, internal hemorrhoids. PROCEDURE NOTE: After informed consent was obtained, the patient was brought to the endoscopy suite, placed in bed in left lateral decubitus position. She was administered IV sedation by the TELETYPEWRITER OPERATOR who then monitored her vitals the entire time, heart rate, blood pressure and pulse ox and started with the EGD, placing scope down the mouth through the esophagus, where we noted some mild changes at the GE junction and pushed past this into the stomach towards the pylorus, some mild gastritis, took a picture of this and then did pushing the duodenum. Duodenum looked fine. Pulled back, did a biopsy of the antrum and then retroflexed the scope, had what looked like a small hiatal hernia, took a picture, did a biopsy of the body of stomach, pulled the scope into the GE junction, did a biopsy, suctioned all the air out of stomach and then pulled the scope up the esophagus and out the mouth. Switched camera, switched gloves, went down below, started the colonoscopy. On the way in, noted a descending colon polyp, did snare polypectomy of this and continued up to the transverse colon, saw another polyp, did another snare polypectomy of this and then into the cecum. In the cecum, there was a large polyp, I elected to do another snare of this, noted the ileocecal valve and appendiceal orifice, took a picture of appendiceal orifice and then slowly withdrew the scope insufflating to look circumferentially at the cherry looking the cecum, up the ascending colon to the hepatic flexure, then down the transverse colon, splenic flexure, into the descending colon down in sigmoid and finally into the rectum, retroflexed in rectal vault, saw some very minimal internal hemorrhoids, took a picture and then removed the scope. The patient tolerated the procedure. She was recovered in the endoscopy suite. Job ID: [id number] DocumentID: [id number] Dictated Date: 11/05/2020 14:43:37 Crown Perforator Operator Date: 11/05/2020 21:35:07 Dictated By: MATT GARCIA DO
== END 2020-11-05 10:37 | disposition home or self-care (01) ==
LOC: ENDO 07:51
PROVIDERS: ATTEND Surgery
DX: D12.4 Benign neoplasm of descending colon (principal); D12.3 Benign neoplasm of transverse colon; D12.0 Benign neoplasm of cecum; K22.70 Barrett's esophagus without dysplasia; K29.70 Gastritis, unspecified, without bleeding; K44.9 Diaphragmatic hernia without obstruction or gangrene; K21.00 Gastro-esophageal reflux disease with esophagitis, without bleeding; K64.8 Other hemorrhoids; I10 Essential (primary) hypertension; J44.9 Chronic obstructive pulmonary disease, unspecified; F41.9 Anxiety disorder, unspecified; F32.9 Major depressive disorder, single episode, unspecified; E11.9 Type 2 diabetes mellitus without complications; Z79.899 Other long term (current) drug therapy; Z79.51 Long term (current) use of inhaled steroids; Z79.01 Long term (current) use of anticoagulants; Z79.84 Long term (current) use of oral hypoglycemic drugs; Z87.891 Personal history of nicotine dependence; Z80.0 Family history of malignant neoplasm of digestive organs
CPT/HCPCS: 82947; 88305

== ENCOUNTER 2020-11-07 18:14 | Emergency (ER) | payer OTHER ==
[~2020-11-07] VITALS: Ht 152 cm; Wt 95.6 kg
[2020-11-07 18:15] VITALS: BP 151/76
--- NOTE | 2020-11-07 18:31 | ED Respiratory ---
General Chief Complaint: Respiratory Problems Stated Complaint: SOB Nursing Triage Note: REPORTS SUDDEN ONSET OF SHORTNESS OF BREATH WHILE GETTING OUT OF BED THIS AM. History of Present Illness Date Seen by Provider: November 07, 2020 Time Seen by Provider: 18:20 Initial Comments 55-year-old female with past medical history significant for pulmonary embolism and on anticoagulation (currently on Eliquis), presents with shortness of air since this morning and has persisted throughout the day without cough, stridor or wheezing. She denies any recent illness, fever or chills. She denies any chest pain but does have some upper back discomfort with movement. Denies abdominal pain, nausea vomiting. She did have a colonoscopy last week and was off her anticoagulation for 5 days. Allergies and Home Medications Allergies Coded Allergies: Penicillins (Verified Allergy, Unknown, 03/02/20) hydrocodone (Verified Allergy, Unknown, 12/05/19) latex (Verified Allergy, Unknown, 12/05/19) morphine (Verified Allergy, Unknown, 12/05/19) Uncoded Allergies: PLASTIC TAPE (Allergy, Mild, 12/05/19) Home Medications Albuterol Sulfate 1 Puff Puff, 2 PUFF PO Q4H PRN for SHORTNESS OF BREATH, (Reported) Apixaban 5 Mg Tablet, 5 MG PO BID, (Reported) Atorvastatin Calcium 20 Mg Tablet, 20 MG PO DAILY, (Reported) Calcium Carbonate 300 Mg Tab.chew, 600 MG PO DAILY, (Reported) Cariprazine Hydrochloride 3 Mg Capsule, 3 MG PO DAILY, (Reported) Cetirizine HCl 10 Mg Tablet, 10 MG PO DAILY, (Reported) Clotrimazole/Betamethasone Dip 15 Gm Cream..g., 15 GM TP DAILY PRN for RASH, (Reported) Cranberry Conc/C/Bacill Coag 1 Each Tablet, 1 EACH PO DAILY, (Reported) Cyclobenzaprine HCl 10 Mg Tablet, 10 MG PO BID, (Reported) Diazepam 5 Mg Tablet, 5 MG PO HS, (Reported) Estradiol 1 Mg Tablet, 1 MG PO HS, (Reported) Estrogens Conjugated 30 Gm Cr, 30 GM VG DAILY, (Reported) Fluticasone Propionate 16 Gm Victoria.susp, 1 SPRAY NSEACH DAILY PRN for CONGESTION, (Reported) Fluticasone/Vilanterol 1 Each Blst.w.dev, 1 EACH IH DAILY, (Reported) Furosemide 40 Mg Tablet, 40 MG PO DAILY Prescribed by: SORAYA DE LA TORRE on 07/03/20 1112 Gabapentin 300 Mg Capsule, 300 MG PO MORNING AND NOON, (Reported) Gabapentin 300 Mg Capsule, 600 MG PO HS, (Reported) TAKES 2 (300NG) TABS Ipratropium/Albuterol Sulfate 3 Ml Ampul.neb, 1 VIAL NEB Q6H PRN for SHORTNESS OF BREATH, (Reported) Lashaacidhaja & Dejan Darbylactis 1 Each Capsule, 1 EACH PO BID Prescribed by: MARÍA EDMONDS on 12/20/19 1643 Nisswa Carbonate 300 Mg Capsule, 600 MG PO HS, (Reported) TAKES 2 (300MG) CAPS AT BEDTIME Nisswa Carbonate 300 Mg Capsule, 300 MG PO DAILY, (Reported) Montelukast Sodium 10 Mg Tablet, 10 MG PO HS, (Reported) Naloxone HCl 4 Mg Victoria, 1 SPRAY NS UD PRN for OPIOID OVERDOSE, (Reported) Nitrofurantoin Macrocrystal 100 Mg Capsule, 100 MG PO DAILY, (Reported) Ondansetron 4 Mg Tab.rapdis, 4 MG PO Q8H PRN for NAUSEA/VOMITING, (Reported) Potassium Chloride 20 Meq Tablet.er, 20 MEQ PO BID Prescribed by: SORAYA DE LA TORRE on 07/03/20 1112 Pregabalin 150 Mg Capsule, 150 MG PO BID, (Reported) Tiotropium [place] 1 Inh Aerp, 2 INH IH DAILY, (Reported) Tramadol HCl 50 Mg Tablet, 50-100 MG PO TID PRN for PAIN-MODERATE (5-7), (Reported) Trazodone HCl 300 Mg Tablet, 300 MG PO HS PRN for INSOMNIA, (Reported) Patient Home Medication List Home Medication List Reviewed: Yes Review of Systems Review of Systems Constitutional: No fever, No malaise, No weakness Respiratory: see HPI; No cough, No hemoptysis, No orthopnea; short of breath; No stridor, No wheezing Cardiovascular: No chest pain, No edema, No palpitations, No syncope Gastrointestinal: No abdominal pain, No loss of appetite, No nausea, No vomiting Genitourinary: no symptoms reported Musculoskeletal: back pain (mild upper back pain); No joint pain; muscle pain, muscle stiffness; No neck pain Past Pnlokje-Gridyf-Tabgjo Hx Past Med/Social Hx: Reviewed Nursing Past Med/Soc Hx Patient Social History Alcohol Use: Denies Use Smoking Status: Former Smoker Type Used: Cigarettes Former Smoker, Quit: Jul 06, 1993 2nd Hand Smoke Exposure: No Recent Infectious Disease Expo: No Recent Hopitalizations: No Immunizations Up To Date Date of Pneumonia Vaccine: May 06, 2019 Date of Influenza Vaccine: Mar 26, 2020 Seasonal Allergies Seasonal Allergies: No Past Medical History Surgeries: Yes (hemorrhoidecotomy, bladder pin-up, hernia repairs with mesh) Appendectomy, Gallbladder, 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 Respiratory: Yes Asthma, Pulmonary Embolism, COPD Cardiac: Yes Deep Vein Thrombosis, Hypertension 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 Genitourinary: Yes Bladder Infection, Kidney Stones, UTI-Chronic Gastrointestinal: Yes Gastroesophageal Reflux, Hemorrhoids, Irritable Bowel Musculoskeletal: Yes Fibromyalgia Endocrine: Yes Diabetes, Non-Insulin dep HEENT: No Cancer: No Psychosocial: Yes Anxiety, Depression Integumentary: No Blood Disorders: Yes (Factor 5) Adverse Reaction/Blood Tranf: No Family Medical History Cardiovascular disease 19 MOTHER Colon cancer 19 FATHER G8 BROTHER G8 BROTHER Diabetes mellitus 19 MOTHER G8 BROTHER Physical Exam Vital Signs - First Documented 11/07/20 18:15 Temp 37.2 Pulse 90 Resp 18 B/P (MAP) 151/76 (101) Pulse Ox 98 O2 Delivery Room Air Capillary Refill : Less Than 3 Seconds Height: 5'2.00" Weight: 180lbs. oz. 81.816932qm; 41.00 BMI Method:Estimated General Appearance: WD/WN, no apparent distress HEENT: PERRL/EOMI, normal ENT inspection Neck: non-tender, full range of motion Respiratory: chest non-tender, lungs clear, normal breath sounds, no respiratory distress, no accessory muscle use, respiratory distress Cardiovascular: normal peripheral pulses, regular rate, rhythm, no edema, no gallop, no JVD, no murmur Gastrointestinal: normal bowel sounds, non tender, soft, no organomegaly, no pulsatile mass Extremities: normal range of motion, non-tender, normal inspection, no pedal edema, no calf tenderness, normal capillary refill, pelvis stable Neurologic/Psychiatric: alert, normal mood/affect, oriented x 3 Skin: normal color, warm/dry Progress/Results/Core Measures Suspected Sepsis Recent Fever Within 48 Hours: No Infection Criteria Present: None New/Unexplained Altered Menta: No Sepsis Screen: No Definite Risk SIRS Temperature: Pulse: 90 Respiratory Rate: 18 Laboratory Tests 11/07/20 18:17: White Blood Count 14.6H Blood Pressure 151 /76 Mean: 101 Laboratory Tests 11/07/20 18:17: Creatinine 0.80, Platelet Count 471H, Total Bilirubin 0.3 Results/Orders Lab Results Laboratory Tests Test 11/07/20 18:17 Range/Units White Blood Count 14.6 H 4.3-11.0 10^3/uL Red Blood Count 3.91 L 4.35-5.85 10^6/uL Hemoglobin 10.7 L 11.5-16.0 G/DL Hematocrit 34 L 35-52 % Mean Corpuscular Volume 88 80-99 FL Mean Corpuscular Hemoglobin 27 25-34 PG Mean Corpuscular Hemoglobin Concent 31 L 32-36 G/DL Red Cell Distribution Width 14.3 10.0-14.5 % Platelet Count 471 H 130-400 10^3/uL Mean Platelet Volume 9.1 7.4-10.4 FL Immature Granulocyte % (Auto) 0 % Neutrophils (%) (Auto) 67 42-75 % Lymphocytes (%) (Auto) 24 12-44 % Monocytes (%) (Auto) 6 0-12 % Eosinophils (%) (Auto) 3 0-10 % Basophils (%) (Auto) 0 0-10 % Neutrophils # (Auto) 9.8 H 1.8-7.8 X 10^3 Lymphocytes # (Auto) 3.5 1.0-4.0 X 10^3 Monocytes # (Auto) 0.9 0.0-1.0 X 10^3 Eosinophils # (Auto) 0.4 H 0.0-0.3 10^3/uL Basophils # (Auto) 0.0 0.0-0.1 10^3/uL Immature Granulocyte # (Auto) 0.1 0.0-0.1 10^3/uL Neutrophils % (Manual) 71 % Lymphocytes % (Manual) 23 % Monocytes % (Manual) 4 % Eosinophils % (Manual) 0 % Basophils % (Manual) 0 % Band Neutrophils 1 % D-Dimer 0.31 0.00-0.49 UG/ML Sodium Level 141 135-145 MMOL/L Potassium Level 3.7 3.6-5.0 MMOL/L Chloride Level 103 98-107 MMOL/L Carbon Dioxide Level 28 21-32 MMOL/L Anion Gap 10 5-14 MMOL/L Blood Urea Nitrogen 8 7-18 MG/DL Creatinine 0.80 0.60-1.30 MG/DL Estimat Glomerular Filtration Rate > 60 BUN/Creatinine Ratio 10 Glucose Level 91 70-105 MG/DL Calcium Level 9.4 8.5-10.1 MG/DL Corrected Calcium 9.2 8.5-10.1 MG/DL Total Bilirubin 0.3 0.1-1.0 MG/DL Aspartate Amino Transf (AST/SGOT) 14 5-34 U/L Alanine Aminotransferase (ALT/SGPT) 17 0-55 U/L Alkaline Phosphatase 81 40-136 U/L Troponin I < 0.30 <0.30 NG/ML Total Protein 7.1 6.4-8.2 GM/DL Albumin 4.2 3.2-4.5 GM/DL My Orders Orders - ROVENSTINEGIULIA DO Ed Iv/Invasive Line Start (11/07/20 18:32) Chest 1 View Ap/Pa Only (11/07/20 18:32) Ekg Tracing (11/07/20 18:32) Cbc With Automated Diff (11/07/20 18:32) Comprehensive Metabolic Panel (11/07/20 18:32) Troponin I Fs (11/07/20 18:32) Fibrin Degradation Products (11/07/20 18:33) Manual Differential (11/07/20 18:17) Vital Signs/I&O 11/07/20 18:15 Temp 37.2 Pulse 90 Resp 18 B/P (MAP) 151/76 (101) Pulse Ox 98 O2 Delivery Room Air Capillary Refill : Less Than 3 Seconds Blood Pressure Mean: 101 ECG Initial ECG Impression Date: November 07, 2020 Initial ECG Impression Time: 18:39 Initial ECG Rate: 84 Initial ECG Rhythm: Normal Sinus Initial ECG Intervals: Normal Initial ECG Impression: Normal Initial ECG Comparisson: No Previous ECG Available Diagnostic Imaging Diagonstic Imaging: Xray Plain Films/CT/US/NM/MRI: chest Comments Date of Exam:11/07/20 CHEST 1 VIEW AP/PA ONLY INDICATION: Shortness of breath. EXAMINATION: Frontal chest was obtained at 6:37 p.m. COMPARISON: 02/16/2020. FINDINGS: Heart is borderline in size. Mediastinal silhouette is unremarkable. The lungs are clear. There is no pneumothorax or pleural fluid. IMPRESSION: Borderline heart size with no acute process in the chest. Dictated on workstation # [id number] Dict: 11/07/201850 Trans: 11/07/201852 PJE [id number] Interpreted by: PJ JENNINGS MD Electronically signed by: Departure Impression Primary Impression: Dyspnea Qualified Codes: R06.02 - Shortness of breath Disposition: HOME, SELF-CARE Condition: Stable Departure-Patient Inst. Decision time for Depature: 19:01 Referrals: [facility] (PCP) Primary Care Physician ADDY SMART APRN (Family) Primary Care Physician Patient Instructions: Shortness of Breath (Dyspnea) (DC) Add. Discharge Instructions: Call your Primary Care Provider tomorrow to schedule a follow up appointment in 2 days if you are not improving. Return to the ER if your symptoms are getting worse. All discharge instructions reviewed with patient and/or family. Voiced understanding. GIULIA VOGEL DO November 07, 2020 18:31
[2020-11-07 18:41] LABS: BASOPHILS % (AUTO) 0 % (0-10); EOSINOPHILS % (AUTO) 3 % (0-10); HEMATOCRIT 34 % (35-52); HEMOGLOBIN 10.7 G/DL (11.5-16.0); LYMPHOCYTES # (AUTO) 3.5 X 10^3 (1.0-4.0); LYMPHOCYTES % (AUTO) 24 % (12-44); MEAN CORPUSCULAR HEMOGLOBIN 27 PG (25-34); MEAN CORPUSCULAR HGB CONC 31 G/DL (32-36); MEAN CORPUSCULAR VOLUME 88 FL (80-99); MEAN PLATELET VOLUME 9.1 FL (7.4-10.4); MONOCYTES # (AUTO) 0.9 X 10^3 (0.0-1.0); MONOCYTES % (AUTO) 6 % (0-12); NEUTROPHILS # (AUTO) 9.8 X 10^3 (1.8-7.8); NEUTROPHILS % (AUTO) 67 % (42-75); PLATELET COUNT 471 10^3/uL (130-400); WHITE BLOOD COUNT 14.6 10^3/uL (4.3-11.0)
[2020-11-07 18:42] LABS: EOSINOPHILS # (AUTO) 0.4 10^3/uL (0.0-0.3)
--- NOTE | 2020-11-07 18:53 | Diagnostic Imaging Report ---
INDICATION: Shortness of breath. EXAMINATION: Frontal chest was obtained at 6:37 p.m. COMPARISON: 02/16/2020. FINDINGS: Heart is borderline in size. Mediastinal silhouette is unremarkable. The lungs are clear. There is no pneumothorax or pleural fluid. IMPRESSION: Borderline heart size with no acute process in the chest. Dictated by: Dictated on workstation # [id number]
[2020-11-07 18:54] LABS: BAND NEUTROPHILS 1 %; BASOPHILS % (MANUAL) 0 %; EOSINOPHILS % (MANUAL) 0 %; LYMPHOCYTES % (MANUAL) 23 %; MONOCYTES % (MANUAL) 4 %; NEUTROPHILS % (MANUAL) 71 %
[2020-11-07 18:58] LABS: ALANINE AMINOTRANSFERASE 17 U/L (0-55); ALBUMIN 4.2 GM/DL (3.2-4.5); ALKALINE PHOSPHATASE 81 U/L (40-136); BILIRUBIN,TOTAL 0.3 MG/DL (0.1-1.0); BUN/CREATININE RATIO 10; CALCIUM 9.4 MG/DL (8.5-10.1); CARBON DIOXIDE 28 MMOL/L (21-32); CHLORIDE 103 MMOL/L (98-107); GFR ESTIMATED > 60; GLUCOSE 91 MG/DL (70-105); POTASSIUM 3.7 MMOL/L (3.6-5.0); SODIUM 141 MMOL/L (135-145); TOTAL PROTEIN 7.1 GM/DL (6.4-8.2)
== END 2020-11-07 19:08 | disposition home or self-care (01) ==
LOC: EDUNIT# 18:14 → ER FS 18:14
DX: R06.00 Dyspnea, unspecified (principal); J44.9 Chronic obstructive pulmonary disease, unspecified; I10 Essential (primary) hypertension; F41.9 Anxiety disorder, unspecified; F32.9 Major depressive disorder, single episode, unspecified; E11.9 Type 2 diabetes mellitus without complications; Z88.0 Allergy status to penicillin; Z91.040 Latex allergy status; Z88.5 Allergy status to narcotic agent; Z87.891 Personal history of nicotine dependence; Z86.711 Personal history of pulmonary embolism; Z86.718 Personal history of other venous thrombosis and embolism; Z79.01 Long term (current) use of anticoagulants; Z79.899 Other long term (current) drug therapy
CPT/HCPCS: 36415; 71045; 80053; 84484; 85007; 85027; 85379; 93005

== ENCOUNTER → 2021-02-04 | Outpatient (CLI) | payer OTHER ==
[~2021-02-04] VITALS: Ht 154.9 cm; Wt 93.4 kg
[~2021-02-04] MED LIST changes: +CINN500C2 PO
== END | disposition home or self-care (01) ==
LOC: PREOP 05:38
PROVIDERS: ATTEND Surgery
DX: Z01.818 Encounter for other preprocedural examination (principal)

== ENCOUNTER → 2021-02-08 | Outpatient (CLI) | payer OTHER | LOC: LAB FS 10:30 | PROVIDERS: ATTEND Surgery | DX: Z20.822 Contact with and (suspected) exposure to COVID-19 (principal) | CPT/HCPCS: 87635 ==

== ENCOUNTER → 2021-02-11 | Day surgery (SDC) | payer OTHER ==
[~2021-02-11] VITALS: Ht 154.9 cm; Wt 93.4 kg
[~2021-02-11] MED LIST changes: +HURRICAINE EXT TUBE (BENZOCAINE) XX PRN; +LACTATED RINGERS 1,000 ML IV ONE; +LACTATED RINGERS 1,000 ML IV STA; +MIDAZOLAM 2 MG/2 ML (VERSED) VIAL ONE; +PROPOFOL INJECTION 50 ML IV ONE
[2021-02-11 11:05] VITALS: BP 125/95
[2021-02-11 11:50] VITALS: BP 98/66
[2021-02-11 11:55] VITALS: BP 95/54
--- NOTE | 2021-02-11 11:55 | Progress Note-Post Operative ---
Post-Operative Progess Note Surgeon (s)/Echo Vascular Tech (s) Surgeon GIORGIO LEONARD DO Echo Vascular Tech: none Pre-Operative Diagnosis Hx of David's Esophagus Post-Operative Diagnosis Gastric Ulcer Small Hiatal hernia esophagitis - mild Procedure & Operative Findings Date of Procedure 02/11/21 Procedure Performed/Findings EGD with Bx PROCEDURE NOTE: After informed consent was obtained, the patient was brought to the endoscopy suite, placed in bed in left lateral decubitus position. She was administered IV sedation by the GROUP SALES REPRESENTATIVE who then monitored vitals the entire time, heart rate, blood pressure and pulse ox and the scope was inserted down the mouth through the esophagus into the stomach. On the way down, noted some mild esophagitis, took a picture, pushed into the stomach, pushed past the antrum into the duodenum. Duodenum looked good. In the antrum she had multiple small ulcers; took a picture and then did a biopsy of one of the antral ulcers. Then retroflexed the scope, saw very small hiatal hernia, took a picture of this and then pulled the scope into the GE junction, took another picture of the GE junction and then did a biopsy of the GE junction. Pushed the scope back into the stomach, suctioned all the air out of the stomach. At this point pulled the scope up the esophagus and out the mouth. The patient tolerated the procedure, and she recovered in endoscopy suite. Anesthesia Type IV sedation by GROUP SALES REPRESENTATIVE Estimated Blood Loss Estimated blood loss (mL): scant Specimens/Packing Specimens Removed bx of antral ulcer GE jxn bx GIORGIO LEONARD DO Feb 11, 2021 11:55
--- NOTE | 2021-02-11 11:57 | Endoscopy Discharge Instruct ---
Endo Procedure/Findings Findings 1.: Gastric Ulcer 2.: Hiatal Hernia 3.: Other Findings (mild esophagitis) Discharge Instructions - Activity: You might feel a little sleepy until tomorrow. This is due to the medicine you received to relax you. Until tomorrow, you should: NOT drive a car, operate machinery or power tools. NOT drink any alcoholic beverages. NOT make any important decisions or sign importortant papers. Do not return to work until tomorrow, unless otherwise instructed. Resume previous activities tomorrow. Diet: Start by taking liquids. If you tolerate liquids, advance to solid food. 1.: EGD in 1 year Notify Physician - If you experience excessive bleeding, unusual abdominal pain, fever, or chest pain, contact your doctor immediately. GIORGIO LEONARD DO Feb 11, 2021 11:57
[2021-02-11 12:00] VITALS: BP 102/59
[2021-02-11 12:20] VITALS: BP 98/62
--- NOTE | 2021-02-11 12:21 | Anesthesia-General Post-Op ---
MAC Patient Condition Mental Status/LOC: Same as Preop Cardiovascular: Satisfactory Nausea/Vomiting: Absent Respiratory: Satisfactory Pain: Controlled Complications: Absent Post Op Complications Complications None Follow Up Care/Instructions Patient Instructions None needed. Anesthesiology Discharge Order Discharge Order Patient is doing well, no complaints, stable vital signs, no apparent adverse anesthesia problems. No complications reported per nursing. REGINALDO JAIMES CRNA Feb 11, 2021 12:21
[2021-02-11 12:30] VITALS: BP 98/62
--- OUTSIDE RECORDS SUMMARY | 2021-02-12 06:53 | XMS REPORT | Clinical Summary ---
Author Author [facility] Address Unknown Phone Unavailable Care Team Providers Care Dance Professor Name Role Phone Cheryl Echols PCP Unavailable Allergies Comments Active Allergy Reactions Severity Noted Date Azithromycin Itching 12/12/2015 Hydrocodone Rash Low 12/12/2015 Latex Rash Low 12/12/2015 Morphine Itching 12/12/2015 Penicillins Anaphylaxis High 12/12/2015 "burn" Adhesive Tape Rash, Other Low 12/12/2015 (See Comments) Medications End Date Status Medication Sig Dispensed Refills Start Date Active albuterol (PROAIR, Inhale 2 0 PROVENTIL, VENTOLIN) 108 puffs into (90 BASE) MCG/ACT inhaler the lungs every 4 (four) hours as needed for Wheezing or Shortness of Breath. Active fluticasone-vilanterol Inhale 1 puff 0 (BREO ELLIPTA) 100-25 into the MCG/INH lungs daily. inhalerIndications: Indications: Asthma, Chronic Asthma, Obstructive Pulmonary Chronic Disease Obstructive Lung Disease Active busPIRone (BUSPAR) 10 MG Take 20 mg by 0 tabletIndications: mouth 2 (two) Anxiety Disorder, times daily. Depression Indications: Anxiety Disorder, Depression Active cyclobenzaprine Take 10 mg by 0 (FLEXERIL) 10 MG tablet mouth 3 (three) times daily as needed for Muscle spasms. Active famotidine (PEPCID) 20 MG Take 20 mg by 0 tabletIndications: mouth 2 (two) Gastroesophageal Reflux times daily. Disease Indications: Gastroesophag eal Reflux Disease Active gabapentin (NEURONTIN) Take 600 mg 0 300 MG by mouth 3 capsuleIndications: (three) times Fibromyalgia Syndrome daily. Indications: Fibromyalgia Syndrome Active albuterol-ipratropium Take 3 mLs by 0 (DUONEB) 0.5-2.5 (3) nebulization MG/3ML SOLN nebulizer at bedtime. solutionIndications: Indications: Bronchospasm Spasm of Lung Air Passages Active albuterol (PROVENTIL) Inhale 2.5 mg 0 (2.5 MG/3ML) 0.083% into the nebulizer solution lungs every 6 (six) hours as needed for Wheezing or Shortness of Breath. Active lisinopril Take 10 mg by 0 (PRINIVIL,ZESTRIL) 10 MG mouth daily. tabletIndications: Indications: Hypertension High Blood Pressure Active lovastatin (MEVACOR) 20 Take 20 mg by 0 MG tabletIndications: mouth daily Atherosclerotic Disease with dinner. Indications: Disease involving Cholesterol Deposits in the Arteries Active metFORMIN (GLUCOPHAGE) Take 850 mg 0 850 MG tabletIndications: by mouth 2 Type 2 Diabetes Mellitus (two) times daily with meals. Indications: Type 2 Diabetes Active nystatin (MYCOSTATIN) Apply 0 creamIndications: topically 2 Cutaneous Candidiasis (two) times daily. Apply to affected area twice daily. Indications: Skin Infection due to [place] Yeast Active oxycodone-acetaminophen Take 1 tablet 0 (PERCOCET) 5-325 MG by mouth every 4 (four) hours as needed for Severe Pain. Patient reports she takes this occasionally, when pain is not controlled with Tramodol Active potassium chloride Take 10 mEq 0 (K-DUR,KLOR-CON) 10 MEQ by mouth 2 tabletIndications: (two) times Hypokalemia daily. Indications: Low Amount of Potassium in the Blood Active promethazine-codeine Take 5 mLs by 0 (PHENERGAN WITH CODEINE) mouth 4 6.25-10 MG/5ML syrup (four) times daily as needed for Cough. Active traMADol (ULTRAM) 50 MG Take 100 mg 0 tablet by mouth every 6 (six) hours as needed for Moderate Pain. Active traZODone (DESYREL) 50 MG Take 50 mg by 0 tabletIndications: mouth at Insomnia bedtime. May repeat Trazodone 50 mg in one hour if needed. Indications: Trouble Sleeping Active triamterene-hydrochloroth Take 1 tablet 0 iazide (MAXZIDE) 75-50 by mouth MGIndications: daily. Hypertension Indications: High Blood Pressure Active warfarin (COUMADIN) 5 MG Take 5 mg by 0 tabletIndications: Deep mouth daily. Vein Thrombosis, Indications: Pulmonary Blood Clot in Thromboembolism, Factor 5 a Deep Vein, Obstructive Blood Clot in a Blood Vessel of the Lung, Factor 5 Active lurasidone (LATUDA) 20 MG Take 20 mg by 28 tablet 0 TABSIndications: mouth daily 6 Depressive Phase Bipolar with dinner. Mood Disorder Indications: Depressive Phase of Manic-Depress ion Active ALPRAZolam (XANAX) 0.5 MG Take 1 tablet 10 tablet 0 tabletIndications: (0.5 mg 6 Anxiety total) by mouth 3 (three) times daily as needed for Anxiety. Indications: Feeling Anxious Do not exceed a daily dose of 1.5 mg Active Problems Problem Noted Date Bipolar affective disorder, currently depressed, mode rate 12/14/2015 Resolved Problems Problem Noted Date Resolved Date Bipolar I disorder, current episode depressed 12/13/2015 12/14/2015 Suicidal ideation 12/13/2015 12/14/2015 Social History Date Tobacco Use Types Packs/Day Years Used Former Smoker Comments Alcohol Use Standard Drinks/Week No 0 (1 standard drink = 0.6 o z pure alcohol) Control Partners Comments Sexually Active Not Currently Sex Assigned at Date Recorded Not on file Last Filed Vital Signs Reading Time Taken Comments Vital Sign 122/83 12/14/2015 7:44 AM CDT Blood Pressure 96 12/14/2015 7:44 AM CDT Pulse 37.1 C (98.8 F) 12/14/2015 7:43 AM CDT Temperature 16 12/14/2015 7:43 AM CDT Respiratory Rate 94% 12/14/2015 7:43 AM CDT Oxygen Saturation - - Inhaled Oxygen Concentration 95.3 kg (210 lb) 12/12/2015 11:34 PM CDT Weight 154.9 cm (5' 1") 12/12/2015 11:34 PM CDT Height 39.68 12/12/2015 11:34 PM CDT Body Mass Index Plan of Treatment Health Maintenance Due Date Last Done Comments COVID-19 Vaccine (1) 1976 Hepatitis C Screening 1982 DTaP,Tdap,and Td Vaccines 09/06/1983 (1 - Tdap) MMR Vaccines-Adult 09/06/1983 Cervical Cancer Screening 1985 Breast Cancer 2014 Screening-Mammogram Colon Cancer Screening 2014 Zoster Vaccine (1 of 2) 2014 Influenza Vaccine (#1) 2021 Pneumo-Vaccine: 65+Yrs (1 2029 of 1 - PPSV23) HIB Vaccines Aged Out No longer eligible based on patient's age to complete this topic IPV Vaccines Aged Out No longer eligible based on patient's age to complete this topic Meningococcal Vaccine Aged Out No longer eligib le based on patient's age to complete this topic Pneumo-Vaccine: Peds (0-5 Aged Out No longer el igible based on patient's age to Yrs) & At-Risk Patients complete this topic (6-64 Yrs) Rotavirus Vaccines Aged Out No longer eligible based on patient's age to complete this topic Results Not on filefrom Last 3 Months Advance Directives For more information, please contact: [phone] Patient Horse Trekking Guide Explanation Type Date Recorded Advance Directives and Living Will Power of Geothermal Hvac Technician Date Inactivated Comments Code Status Date Activated Full Code 12/14/2015 11:46 AM 12/14/2015 11:46 AM Full Code 12/13/2015 12:41 AM Care Teams Start Date End Date Dance Professor Relationship Specialty 12/12/15 Cheryl Echols PCP - General Family Medicine
== END ==
LOC: ENDO 11:02
PROVIDERS: ATTEND Surgery
DX: K44.9 Diaphragmatic hernia without obstruction or gangrene (principal); K21.00 Gastro-esophageal reflux disease with esophagitis, without bleeding; K25.9 Gastric ulcer, unspecified as acute or chronic, without hemorrhage or perforation; I10 Essential (primary) hypertension; J44.9 Chronic obstructive pulmonary disease, unspecified; E11.40 Type 2 diabetes mellitus with diabetic neuropathy, unspecified; K29.50 Unspecified chronic gastritis without bleeding; K31.89 Other diseases of stomach and duodenum; K64.0 First degree hemorrhoids; D12.4 Benign neoplasm of descending colon; D12.3 Benign neoplasm of transverse colon; Z79.51 Long term (current) use of inhaled steroids; Z79.899 Other long term (current) drug therapy; Z79.84 Long term (current) use of oral hypoglycemic drugs; Z87.891 Personal history of nicotine dependence; Z87.19 Personal history of other diseases of the digestive system
CPT/HCPCS: 88305

== ENCOUNTER 2021-04-29 16:11 | Emergency (ER) | payer OTHER ==
[~2021-04-29] VITALS: Ht 154.9 cm; Wt 86.2 kg
[~2021-04-29 16:11] MED LIST changes: -HURRICAINE EXT TUBE (BENZOCAINE) XX PRN; -LACTATED RINGERS 1,000 ML IV ONE; -LACTATED RINGERS 1,000 ML IV STA; -MIDAZOLAM 2 MG/2 ML (VERSED) VIAL ONE; -PROPOFOL INJECTION 50 ML IV ONE
--- NOTE | 2021-04-29 16:19 | ED Chest Pain ---
General Stated Complaint: CP,RT ARM PAIN History of Present Illness Date Seen by Provider: Apr 29, 2021 Time Seen by Provider: 16:16 Initial Comments 55-year-old female presents with some chest tightness. She reports it started about an hour ago. She reports it "feels like somebody sitting on her chest" patient reports he gets worse with deep breath or if she walks. Patient denies any fever, chills change in her cough. She does report she has a history of COPD and asthma. That she smoked in the past and stopped. She also has a history of CHF. She is fully vaccinated for Covid. Allergies and Home Medications Allergies Coded Allergies: Penicillins (Verified Allergy, Unknown, 03/02/20) hydrocodone (Verified Allergy, Unknown, 12/05/19) latex (Verified Allergy, Unknown, 12/05/19) morphine (Verified Allergy, Unknown, 12/05/19) Uncoded Allergies: PLASTIC TAPE (Allergy, Mild, 12/05/19) Patient Home Medication List Home Medication List Reviewed: Yes Albuterol Sulfate (Proair Hfa) 1 Puff Puff, 2 PUFF PO Q4H PRN for SHORTNESS OF BREATH, (Reported) Entered as Reported by: RANDA BALDWIN on 12/06/19 0837 Apixaban (Eliquis) 5 Mg Tablet, 5 MG PO BID, (Reported) Entered as Reported by: RANDA BALDWIN on 12/06/19 0901 Atorvastatin Calcium (Atorvastatin Calcium) 20 Mg Tablet, 20 MG PO DAILY, (Reported) Entered as Reported by: OLESYA LEHMAN on 07/03/20 09 Calcium Carbonate (Tums X-Str) 300 Mg Tab.chew, 600 MG PO DAILY, (Reported) Entered as Reported by: OLESYA LEHMAN on 07/03/20 0913 Cariprazine Hydrochloride (Vraylar) 3 Mg Capsule, 3 MG PO DAILY, (Reported) Entered as Reported by: RANDA BALDWIN on 12/06/19 0837 Cetirizine HCl (Zyrtec) 10 Mg Tablet, 10 MG PO DAILY, (Reported) Entered as Reported by: SARAH BARRY on 01/16/20 1106 Cinnamon Bark (Cinnamon) 500 Mg Capsule, 500 MG PO DAILY, (Reported) Entered as Reported by: DONALDO ARGUETA on 02/06/21 0957 Clotrimazole/Betamethasone Dip (Clotrimazole-Betamethasone Crm) 15 Gm Cream..g., 15 GM TP DAILY PRN for RASH, (Reported) Entered as Reported by: OLESYA LEHMAN on 07/03/20 0913 Cranberry Conc/C/Bacill Coag (Azo Cranberry Tablet) 1 Each Tablet, 1 EACH PO DAILY, (Reported) Entered as Reported by: SARAH BARRY on 01/16/20 1110 Cyclobenzaprine HCl (Cyclobenzaprine HCl) 10 Mg Tablet, 10 MG PO BID, (Reported) Entered as Reported by: RANDA BALDWIN on 12/06/19 0837 Diazepam (Diazepam) 5 Mg Tablet, 5 MG PO HS, (Reported) Entered as Reported by: RANDA BALDWIN on 12/06/19 0837 Estradiol (Estrace Tablet) 1 Mg Tablet, 1 MG PO HS, (Reported) Entered as Reported by: SARAH BARRY on 01/16/20 1106 Estrogens Conjugated (Premarin) 30 Gm Cr, 30 GM VG DAILY, (Reported) Entered as Reported by: АЛЕКСАНДР HERMOSILLO on 10/29/20 1235 Fluticasone Propionate (Fluticasone Propionate) 16 Gm [place].susp, 1 SPRAY NSEACH DAILY PRN for CONGESTION, (Reported) Entered as Reported by: SARAH BARRY on 01/16/20 1106 Fluticasone/Vilanterol (Breo Ellipta 200-25 Mcg INH) 1 Each Blst.w.dev, 1 EACH IH UD, (Reported) Entered as Reported by: DONALDO ARGUETA on 02/06/21 0957 Furosemide (Furosemide) 40 Mg Tablet, 40 MG PO DAILY Prescribed by: SORAYA DE LA TORRE on 07/03/20 111 Gabapentin (Neurontin) 300 Mg Capsule, 300 MG PO MORNING AND NOON, (Reported) Entered as Reported by: RANDA BALDWIN on 12/06/19 08 Gabapentin (Neurontin) 300 Mg Capsule, 600 MG PO HS, (Reported) Entered as Reported by: RANDA BALDWIN on 12/06/19 0837 Ipratropium/Albuterol Sulfate (Iprat-Albut 0.5-3(2.5) mg/3 ml) 3 Ml Ampul.neb, 1 VIAL NEB Q6H PRN for SHORTNESS OF BREATH, (Reported) Entered as Reported by: RANDA BALDWIN on 12/06/19836 L.acidoph & Paracasei,B.lactis (Probiotic) 1 Each Capsule, 1 EACH PO BID Prescribed by: MARÍA EDMONDS on 12/20/19 1643 [place] Carbonate ([place] Carbonate) 300 Mg Capsule, 600 MG PO HS, (Reported) Entered as Reported by: RANDA BALDWIN on 12/06/19836 [place] Carbonate ([place] Carbonate) 300 Mg Capsule, 300 MG PO DAILY, (Reported) Entered as Reported by: RANDA BALDWIN on 12/06/19836 Montelukast Sodium (Montelukast Sodium) 10 Mg Tablet, 10 MG PO HS, (Reported) Entered as Reported by: RANDA BALDWIN on 12/06/19836 Naloxone HCl (Narcan) 4 Mg [place], 1 SPRAY NS UD PRN for OPIOID OVERDOSE, (Reported) Entered as Reported by: SARAH BARRY on 01/16/20 110 Nitrofurantoin Macrocrystal (Nitrofurantoin) 100 Mg Capsule, 100 MG PO DAILY, (Reported) Entered as Reported by: OLESYA LEHMAN on 07/03/20 09 Ondansetron (Ondansetron Odt) 4 Mg Tab.rapdis, 4 MG PO Q8H PRN for NAUSEA/VOMITING, (Reported) Entered as Reported by: OLESYA LEHMAN on 07/03/20 09 Potassium Chloride (Potassium Chloride) 20 Meq Tablet.er, 20 MEQ PO BID Prescribed by: SORAYA DE LA TORRE on 07/03/20 1112 Pregabalin (Pregabalin) 150 Mg Capsule, 150 MG PO BID, (Reported) Entered as Reported by: RANDA BALDWIN on 12/06/19 09 Tiotropium [place] (Spiriva) 1 Inh Aerp, 2 INH IH DAILY, (Reported) Entered as Reported by: OLESYA LEHMAN on 07/03/20 09 Tramadol HCl (Tramadol HCl) 50 Mg Tablet, 50-100 MG PO TID PRN for PAIN-MODERATE (5-7), (Reported) Entered as Reported by: SARAH BARRY on 01/16/20 110 Trazodone HCl (Trazodone HCl) 300 Mg Tablet, 300 MG PO HS PRN for INSOMNIA, (Reported) Entered as Reported by: OLESYA LEHMAN on 07/03/20 0913 Review of Systems Review of Systems Constitutional: No chills, No fever Respiratory: Denies Cough; SOA With Exertion Cardiovascular: Chest Pain; Denies Lightheadedness, Denies Syncope Gastrointestinal: Denies Abdominal Pain, Denies Nausea, Denies Vomiting Musculoskeletal: no symptoms reported Skin: no symptoms reported Psychiatric/Neurological: No Symptoms Reported Endocrine: No Symptoms Reported Hematologic/Lymphatic: No Symptoms Reported Past Shuyapo-Kmlwru-Khimad Hx Seasonal Allergies Seasonal Allergies: No Past Medical History Surgeries: Yes (hemorrhoidecotomy, bladder pin-up, hernia repairs with mesh) Appendectomy, Gallbladder, 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 Respiratory: Yes Asthma, Pulmonary Embolism, COPD Cardiac: Yes Deep Vein Thrombosis, Hypertension 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 Genitourinary: Yes Bladder Infection, Kidney Stones, UTI-Chronic Gastrointestinal: Yes Gastroesophageal Reflux, Hemorrhoids, Irritable Bowel Musculoskeletal: Yes Fibromyalgia Endocrine: Yes Diabetes, Non-Insulin dep HEENT: No Cancer: No Psychosocial: Yes Anxiety, Depression Integumentary: No Blood Disorders: Yes (Factor 5) Adverse Reaction/Blood Tranf: No Family Medical History Cardiovascular disease 19 MOTHER Colon cancer 19 FATHER G8 BROTHER G8 BROTHER Diabetes mellitus 19 MOTHER G8 BROTHER Physical Exam Vital Signs Vital Signs - First Documented 04/29/21 16:15 Temp 37.0 Pulse 79 Resp 16 B/P (MAP) 115/56 (75) O2 Delivery Room Air Capillary Refill : Height, Weight, BMI Height: 5'2.00" Weight: 180lbs. oz. 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-XII Norm as Tested Skin: Normal Color, Warm/Dry Progress/Results/Core Measures Results/Orders Lab Results Laboratory Tests Test 04/29/21 16:30 04/29/21 18:24 Range/Units White Blood Count 9.8 4.3-11.0 10^3/uL Red Blood Count 3.47 L 3.80-5.11 10^6/uL Hemoglobin 9.8 L 11.5-16.0 g/dL Hematocrit 33 L 35-52 % Mean Corpuscular Volume 94 80-99 fL Mean Corpuscular Hemoglobin 28 25-34 pg Mean Corpuscular Hemoglobin Concent 30 L 32-36 g/dL Red Cell Distribution Width 15.7 H 10.0-14.5 % Platelet Count 421 H 130-400 10^3/uL Mean Platelet Volume 9.1 9.0-12.2 fL Immature Granulocyte % (Auto) 0 % Neutrophils (%) (Auto) 63 42-75 % Lymphocytes (%) (Auto) 25 12-44 % Monocytes (%) (Auto) 6 0-12 % Eosinophils (%) (Auto) 5 0-10 % Basophils (%) (Auto) 0 0-10 % Neutrophils # (Auto) 6.1 1.8-7.8 X 10^3 Lymphocytes # (Auto) 2.5 1.0-4.0 X 10^3 Monocytes # (Auto) 0.6 0.0-1.0 X 10^3 Eosinophils # (Auto) 0.5 H 0.0-0.3 10^3/uL Basophils # (Auto) 0.0 0.0-0.1 10^3/uL Immature Granulocyte # (Auto) 0.0 0.0-0.1 10^3/uL Prothrombin Time 15.1 H 12.2-14.7 SEC INR Comment 1.2 0.8-1.4 Activated Partial Thromboplast Time 31 24-35 SEC Sodium Level 139 135-145 MMOL/L Potassium Level 3.8 3.6-5.0 MMOL/L Chloride Level 101 98-107 MMOL/L Carbon Dioxide Level 26 21-32 MMOL/L Anion Gap 12 5-14 MMOL/L Blood Urea Nitrogen 7 7-18 MG/DL Creatinine 0.67 0.60-1.30 MG/DL Estimat Glomerular Filtration Rate 91 BUN/Creatinine Ratio 10 Glucose Level 88 70-105 MG/DL Calcium Level 8.7 8.5-10.1 MG/DL Corrected Calcium 8.5 8.5-10.1 MG/DL Magnesium Level 1.8 1.6-2.4 MG/DL Total Bilirubin 0.2 0.1-1.0 MG/DL Aspartate Amino Transf (AST/SGOT) 21 5-34 U/L Alanine Aminotransferase (ALT/SGPT) 17 0-55 U/L Alkaline Phosphatase 79 40-136 U/L Myoglobin < 21.0 10.0-92.0 NG/ML Troponin I < 0.30 < 0.30 <0.30 NG/ML Pro-B-Type Natriuretic Peptide 35.6 <75.0 PG/ML Total Protein 7.4 6.4-8.2 GM/DL Albumin 4.2 3.2-4.5 GM/DL My Orders Orders - QUINTERO,ELIAS L DO Cbc With Automated Diff (04/29/21 16:19) Magnesium (04/29/21 16:19) Chest 1 View Ap/Pa Only (04/29/21 16:19) Ekg Tracing (04/29/21 16:19) Comprehensive Metabolic Panel (04/29/21 16:19) Myoglobin Serum (04/29/21 16:19) Protime With Inr (04/29/21 16:19) Partial Thromboplastin Time (04/29/21 16:19) Monitor-Rhythm Ecg Trace Only (04/29/21 16:19) Lipid Panel (04/30/21 06:00) Aspirin Chewable Tablet (Baby Aspirin Ch (04/29/21 16:30) Ed Iv/Invasive Line Start (04/29/21 16:19) Probnp Fs (04/29/21 16:19) Troponin I Fs (04/29/21 16:19) Albuterol/Ipra Inhalation Soln (Duoneb I (04/29/21 17:00) Svn Small Volume Nebulizer (04/29/21 16:53) Ketorolac Injection (Toradol Injection) (04/29/21 17:23) Famotidine Injection (Pepcid Injection) (04/29/21 17:24) Methylprednisolone Sod Succ (Solu-Medrol (04/29/21 17:39) Troponin I Fs (04/29/21 18:13) Medications Given in ED Current Medications Medications Dose Ordered Sig/Ren Route Start Time Stop Time Status Last Admin Dose Admin Albuterol/ Ipratropium 3 ml ONCE ONCE INH 04/29/21 17:00 04/29/21 17:01 DC 04/29/21 17:00 3 ML Aspirin 324 mg ONCE ONCE PO 04/29/21 16:30 04/29/21 16:31 DC 04/29/21 16:36 324 MG Vital Signs/I&O 04/29/21 16:15 Temp 37.0 Pulse 79 Resp 16 B/P (MAP) 115/56 (75) O2 Delivery Room Air Progress Progress Note : Progress Note Patient feels much better following her treatment. I suspect is more of a reactive airway disease/asthma exacerbation than infection or other etiology. Patient was due to negative troponins with negative EKG. Patient stable and discharged Initial ECG Impression Date: Apr 29, 2021 Initial ECG Impression Time: 16:20 Initial ECG Rate: 79 Initial ECG Rhythm: Normal Sinus Initial ECG Intervals: Normal Initial ECG Impression: Nonspecific Changes Comment no acute changes or st elevation Departure Impression Primary Impression: Exacerbation of reactive airway disease Qualified Codes: J45.901 - Unspecified asthma with (acute) exacerbation Disposition: 01 HOME, SELF-CARE Condition: Stable Departure-Patient Inst. Referrals: [facility] (PCP) Primary Care Physician ADDY SMART APRN (Family) Primary Care Physician Patient Instructions: Asthma in Adults Add. Discharge Instructions: Follow-up with your primary care provider in 2 or 3 days for recheck of today's symptoms Scripts Prednisone (Prednisone) 20 Mg Tab 40 MG PO DAILY, #6 TAB 0 Refills Prov: ELIAS QUINTERO DO 04/29/21 ELIAS QUINTERO DO Apr 29, 2021 16:18
[2021-04-29] MEDS ORDERED: ASPIRIN 81 MG CHEW (CHILDREN'S ASA) PO ONE (16:30)
[2021-04-29 16:51] LABS: HEMATOCRIT 33 % (35-52); HEMOGLOBIN 9.8 g/dL (11.5-16.0); MEAN CORPUSCULAR HEMOGLOBIN 28 pg (25-34); MEAN CORPUSCULAR HGB CONC 30 g/dL (32-36); MEAN CORPUSCULAR VOLUME 94 fL (80-99); MEAN PLATELET VOLUME 9.1 fL (9.0-12.2); NEUTROPHILS % (AUTO) 63 % (42-75); PLATELET COUNT 421 10^3/uL (130-400); WHITE BLOOD COUNT 9.8 10^3/uL (4.3-11.0)
[2021-04-29 16:52] LABS: BASOPHILS % (AUTO) 0 % (0-10); EOSINOPHILS # (AUTO) 0.5 10^3/uL (0.0-0.3); EOSINOPHILS % (AUTO) 5 % (0-10); LYMPHOCYTES # (AUTO) 2.5 X 10^3 (1.0-4.0); LYMPHOCYTES % (AUTO) 25 % (12-44); MONOCYTES # (AUTO) 0.6 X 10^3 (0.0-1.0); MONOCYTES % (AUTO) 6 % (0-12); NEUTROPHILS # (AUTO) 6.1 X 10^3 (1.8-7.8)
--- NOTE | 2021-04-29 16:56 | Diagnostic Imaging Report ---
INDICATION: Chest pain. COMPARISON: Exam compared to 11/07/2020. FINDINGS: Lungs are clear. No failure, effusion, or pneumothorax. IMPRESSION: No acute-appearing abnormality. Dictated by: Dictated on workstation # [id number]
[2021-04-29] MEDS ORDERED: RT-ALBUTEROL/IPRATROPIUM 3 ML (DUONEB) VIAL INH ONE (17:00)
[2021-04-29 17:05] LABS: INR 1.2 (0.8-1.4); PROTHROMBIN TIME PATIENT 15.1 SEC (12.2-14.7)
[2021-04-29] MEDS ORDERED: KETOROLAC 30 MG/ML VIAL IVP STA (17:23)
[2021-04-29] MEDS ORDERED: FAMOTIDINE 20MG/2ML IV (PEPCID) IV STA (17:24)
[2021-04-29 17:31] LABS: BUN/CREATININE RATIO 10; CARBON DIOXIDE 26 MMOL/L (21-32); CHLORIDE 101 MMOL/L (98-107); CREATININE SERUM 0.67 MG/DL (0.60-1.30); GFR ESTIMATED 91; GLUCOSE 88 MG/DL (70-105); POTASSIUM 3.8 MMOL/L (3.6-5.0); SODIUM 139 MMOL/L (135-145)
[2021-04-29 17:32] LABS: ALANINE AMINOTRANSFERASE 17 U/L (0-55); ALBUMIN 4.2 GM/DL (3.2-4.5); ALKALINE PHOSPHATASE 79 U/L (40-136); BILIRUBIN,TOTAL 0.2 MG/DL (0.1-1.0); CALCIUM 8.7 MG/DL (8.5-10.1); MAGNESIUM 1.8 MG/DL (1.6-2.4); TOTAL PROTEIN 7.4 GM/DL (6.4-8.2)
[2021-04-29] MEDS ORDERED: methylPREDNISolone 125 MG (Solu-MEDROL) VIAL IV STA (17:39)
[2021-04-29] MEDS ORDERED: PRD20T PO (19:31)
[2021-04-29 19:36] VITALS: BP 130/76
== END 2021-04-29 19:36 | disposition home or self-care (01) ==
LOC: EDUNIT# 16:11 → ER FS 16:12
DX: J45.901 Unspecified asthma with (acute) exacerbation (principal); I10 Essential (primary) hypertension; F41.9 Anxiety disorder, unspecified; F32.9 Major depressive disorder, single episode, unspecified; E66.9 Obesity, unspecified; E11.9 Type 2 diabetes mellitus without complications; Z68.38 Body mass index [BMI] 38.0-38.9, adult; Z86.711 Personal history of pulmonary embolism; Z86.718 Personal history of other venous thrombosis and embolism; Z79.01 Long term (current) use of anticoagulants; Z79.899 Other long term (current) drug therapy
CPT/HCPCS: 36415; 71045; 80053; 83735; 83874; 83880; 84484; 85025; 85610; 85730; 93041

== ENCOUNTER → 2021-05-06 | Outpatient (CLI) | payer OTHER ==
[~2021-05-06] MED LIST changes: +PRD20T PO
[2021-05-06 15:19] LABS: HEMATOCRIT 33 % (35-52); HEMOGLOBIN 9.8 g/dL (11.5-16.0); MEAN CORPUSCULAR HEMOGLOBIN 28 pg (25-34); MEAN CORPUSCULAR HGB CONC 30 g/dL (32-36); MEAN CORPUSCULAR VOLUME 95 fL (80-99); WHITE BLOOD COUNT 14.1 10^3/uL (4.3-11.0)
[2021-05-06 15:20] LABS: BASOPHILS # (AUTO) 0.1 10^3/uL (0.0-0.1); BASOPHILS % (AUTO) 0 % (0-10); EOSINOPHILS # (AUTO) 0.6 10^3/uL (0.0-0.3); EOSINOPHILS % (AUTO) 4 % (0-10); LYMPHOCYTES # (AUTO) 3.5 X 10^3 (1.0-4.0); LYMPHOCYTES % (AUTO) 25 % (12-44); MEAN PLATELET VOLUME 8.8 fL (9.0-12.2); MONOCYTES % (AUTO) 7 % (0-12); NEUTROPHILS # (AUTO) 8.9 X 10^3 (1.8-7.8); NEUTROPHILS % (AUTO) 63 % (42-75); PLATELET COUNT 472 10^3/uL (130-400)
[2021-05-06 15:23] LABS: ATYPICAL LYMPHOCYTES 12 %; BAND NEUTROPHILS 5 %; EOSINOPHILS % (MANUAL) 1 %; LYMPHOCYTES % (MANUAL) 17 %; MONOCYTES % (MANUAL) 8 %; NEUTROPHILS % (MANUAL) 57 %
[2021-05-06 15:24] LABS: ELLIPT/OVALOCYTES SLIGHT; HYPOCHROMASIA 1+; MICROCYTOSIS 1+
== END ==
LOC: LAB FS 14:16
PROVIDERS: ATTEND Nurse Practitioner Family
DX: D64.9 Anemia, unspecified (principal)
CPT/HCPCS: 36415; 85007; 85027

== ENCOUNTER 2021-05-07 16:47 | Emergency (ER) | payer OTHER ==
[~2021-05-07] VITALS: Ht 152 cm; Wt 86.0 kg
--- NOTE | 2021-05-07 17:40 | ED General ---
General Chief Complaint: General Problems/Pain Stated Complaint: LAB RESULT Nursing Triage Note: PT REPORTS RILEY RUVALCABA APRN SENT HER HERE FOR HER HEMOGLOBIN RESULTS. PT HBG HAS BEEN ABOUT THE SAME FOR THE PAST 6 MONTHS. Source of Information: Patient History of Present Illness Date Seen by Provider: May 07, 2021 Time Seen by Provider: 17:38 Initial Comments 55-year-old female presenting to the emergency department as she states the clinic told her to come to the ER for acute blood loss. She had labs done yesterday on May 06 and this afternoon they told her she needed to come to the emergency department because her blood count had dropped significantly. She states that she has been having generalized malaise and fatigue. She has nausea but no vomiting. She has been having feelings of being weak. She states that she has been having occasional cough. She has fever or chills. She has not had any pain or burning with urination. She denies any diarrhea bright red blood in her stool but her stools have been dark with iron supplements. She just had a colonoscopy last month and states that they did not see any signs of bleeding. She was here a week ago on April 29 and had blood work. At that time her hemoglobin was 9.8 and this was the same value on ThursdayMay 06. She did have a slight increase in her white blood cell count of 14,000. This is similar to lab findings from November 2020 Associated Systoms: No Chest Pain; Cough; No Diaphoresis, No Fever/Chills; Headaches (frontal), Malaise; No Seizure; Shortness of Air; No Syncope; Weakness Allergies and Home Medications Allergies Coded Allergies: Penicillins (Verified Allergy, Unknown, 03/02/20) hydrocodone (Verified Allergy, Unknown, 12/05/19) latex (Verified Allergy, Unknown, 12/05/19) morphine (Verified Allergy, Unknown, 12/05/19) Uncoded Allergies: PLASTIC TAPE (Allergy, Mild, 12/05/19) Patient Home Medication List Home Medication List Reviewed: Yes Albuterol Sulfate (Proair Hfa) 1 Puff Puff, 2 PUFF PO Q4H PRN for SHORTNESS OF BREATH, (Reported) Entered as Reported by: RANDA BALDWIN on 12/06/19 0837 Apixaban (Eliquis) 5 Mg Tablet, 5 MG PO BID, (Reported) Entered as Reported by: RANDA BALDWIN on 12/06/19 0901 Atorvastatin Calcium (Atorvastatin Calcium) 20 Mg Tablet, 20 MG PO DAILY, (Reported) Entered as Reported by: OLESYA LEHMAN on 07/03/20 09 Calcium Carbonate (Tums X-Str) 300 Mg Tab.chew, 600 MG PO DAILY, (Reported) Entered as Reported by: OLESYA LEHMAN on 07/03/20 09 Cariprazine Hydrochloride (Vraylar) 3 Mg Capsule, 3 MG PO DAILY, (Reported) Entered as Reported by: RANDA BALDWIN on 12/06/19 08 Cetirizine HCl (Zyrtec) 10 Mg Tablet, 10 MG PO DAILY, (Reported) Entered as Reported by: SARAH BARRY on 01/16/20 110 Cinnamon Bark (Cinnamon) 500 Mg Capsule, 500 MG PO DAILY, (Reported) Entered as Reported by: DONALDO ARGUETA on 02/06/21 0957 Clotrimazole/Betamethasone Dip (Clotrimazole-Betamethasone Crm) 15 Gm Cream..g., 15 GM TP DAILY PRN for RASH, (Reported) Entered as Reported by: OLESYA LEHMAN on 07/03/20 09 Cranberry Conc/C/Bacill Coag (Azo Cranberry Tablet) 1 Each Tablet, 1 EACH PO DAILY, (Reported) Entered as Reported by: SARAH BARRY on 01/16/20 1110 Cyclobenzaprine HCl (Cyclobenzaprine HCl) 10 Mg Tablet, 10 MG PO BID, (Reported) Entered as Reported by: RANDA BALDWIN on 12/06/19 08 Diazepam (Diazepam) 5 Mg Tablet, 5 MG PO HS, (Reported) Entered as Reported by: RANDA BALDWIN on 12/06/19 08 Estradiol (Estrace Tablet) 1 Mg Tablet, 1 MG PO HS, (Reported) Entered as Reported by: SARAH BARRY on 01/16/20 1106 Estrogens Conjugated (Premarin) 30 Gm Cr, 30 GM VG DAILY, (Reported) Entered as Reported by: АЛЕКСАНДР HERMOSILLO on 10/29/20 1235 Fluticasone Propionate (Fluticasone Propionate) 16 Gm [place].susp, 1 SPRAY NSEACH DAILY PRN for CONGESTION, (Reported) Entered as Reported by: SARAH BARRY on 01/16/20 1106 Fluticasone/Vilanterol (Breo Ellipta 200-25 Mcg INH) 1 Each Blst.w.dev, 1 EACH IH UD, (Reported) Entered as Reported by: DONALDO ARGUETA on 02/06/21 0957 Furosemide (Furosemide) 40 Mg Tablet, 40 MG PO DAILY Prescribed by: SORAYA DE LA TORRE on 07/03/20 1112 Gabapentin (Neurontin) 300 Mg Capsule, 300 MG PO MORNING AND NOON, (Reported) Entered as Reported by: RANDA BALDWIN on 12/06/19 0837 Gabapentin (Neurontin) 300 Mg Capsule, 600 MG PO HS, (Reported) Entered as Reported by: RANDA BALDWIN on 12/06/19 08 Ipratropium/Albuterol Sulfate (Iprat-Albut 0.5-3(2.5) mg/3 ml) 3 Ml Ampul.neb, 1 VIAL NEB Q6H PRN for SHORTNESS OF BREATH, (Reported) Entered as Reported by: RANDA BALDWIN on 12/06/19 08 L.acidoph & Paracasei,B.lactis (Probiotic) 1 Each Capsule, 1 EACH PO BID Prescribed by: MARÍA EDMONDS on 12/20/19 1643 Spur Carbonate (Spur Carbonate) 300 Mg Capsule, 600 MG PO HS, (Reported) Entered as Reported by: RANDA BALDWIN on 12/06/19 0837 Spur Carbonate (Spur Carbonate) 300 Mg Capsule, 300 MG PO DAILY, (Reported) Entered as Reported by: RANDA BALDWIN on 12/06/19 08 Montelukast Sodium (Montelukast Sodium) 10 Mg Tablet, 10 MG PO HS, (Reported) Entered as Reported by: RANDA BALDWIN on 12/06/19 0837 Naloxone HCl (Narcan) 4 Mg [place], 1 SPRAY NS UD PRN for OPIOID OVERDOSE, (Reported) Entered as Reported by: SARAH BARRY on 01/16/20 1106 Nitrofurantoin Macrocrystal (Nitrofurantoin) 100 Mg Capsule, 100 MG PO DAILY, (Reported) Entered as Reported by: OLESYA LEHMAN on 07/03/20 0913 Ondansetron (Ondansetron Odt) 4 Mg Tab.rapdis, 4 MG PO Q8H PRN for NAUSEA/VOMITING, (Reported) Entered as Reported by: OLESYA LEHMAN on 07/03/20 09 Potassium Chloride (Potassium Chloride) 20 Meq Tablet.er, 20 MEQ PO BID Prescribed by: SORAYA DE LA TORRE on 07/03/20 111 Prednisone (Prednisone) 20 Mg Tab, 40 MG PO DAILY Prescribed by: ELIAS QUINTERO on 04/29/21 193 Pregabalin (Pregabalin) 150 Mg Capsule, 150 MG PO BID, (Reported) Entered as Reported by: RANDA BALDWIN on 12/06/19 0901 Tiotropium Pierce (Spiriva) 1 Inh Aerp, 2 INH IH DAILY, (Reported) Entered as Reported by: OLESYA LEHMAN on 07/03/20 09 Tramadol HCl (Tramadol HCl) 50 Mg Tablet, 50-100 MG PO TID PRN for PAIN-MODERATE (5-7), (Reported) Entered as Reported by: SARAH BARRY on 01/16/20 110 Trazodone HCl (Trazodone HCl) 300 Mg Tablet, 300 MG PO HS PRN for INSOMNIA, (Reported) Entered as Reported by: OLESYA LEHMAN on 07/03/20912 Review of Systems Review of Systems Constitutional: see HPI EENTM: no symptoms reported Respiratory: see HPI Cardiovascular: No chest pain, No edema Gastrointestinal: see HPI; No diarrhea; nausea; No vomiting Genitourinary: No dysuria Musculoskeletal: no symptoms reported Skin: No rash Psychiatric/Neurological: See HPI Past Spdjagx-Vxathi-Gzbqan Hx Patient Social History Tobacco Use?: Yes Tobacco type used: Cigarettes Smoking Status: Former Smoker Use of E-Cig and/or Vaping dev: No Substance use?: No Alcohol Use?: No Pt feels they are or have been: No Immunizations Up To Date First/Initial COVID19 Vaccinat: 2020 Second COVID19 Vaccination Musa: 2020 COVID19 Vaccine Occupational Therapy Manager: DHIRAJ Seasonal Allergies Seasonal Allergies: No Past Medical History Surgeries: Yes (hemorrhoidecotomy, bladder pin-up, hernia repairs with mesh) Appendectomy, Gallbladder, 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 Respiratory: Yes Asthma, Pulmonary Embolism, COPD Cardiac: Yes Deep Vein Thrombosis, Hypertension Neurological: No 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 SALVAGER History: 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 Genitourinary: Yes Bladder Infection, Kidney Stones, UTI-Chronic Gastrointestinal: Yes Gastroesophageal Reflux, Hemorrhoids, Irritable Bowel Musculoskeletal: Yes Fibromyalgia Endocrine: Yes Diabetes, Non-Insulin dep HEENT: No Cancer: No Psychosocial: Yes Anxiety, Depression Integumentary: No Blood Disorders: Yes (Factor 5) Adverse Reaction/Blood Tranf: No Family Medical History Cardiovascular disease 19 MOTHER Colon cancer 19 FATHER G8 BROTHER G8 BROTHER Diabetes mellitus 19 MOTHER G8 BROTHER Physical Exam Vital Signs Vital Signs - First Documented 05/07/21 16:59 Temp 36.6 Pulse 93 Resp 20 B/P (MAP) 142/82 (102) Pulse Ox 96 O2 Delivery Room Air Capillary Refill : Less Than 3 Seconds Height, Weight, BMI Height: 5'2.00" Weight: 180lbs. oz. 81.565388tw; 37.00 BMI Method:Estimated General Appearance: No Apparent Distress, WD/WN HEENT: PERRL/EOMI; No Moist Mucous Membranes (slightly dry mucous membranes) Neck: Full Range of Motion, Normal Inspection, Non Tender, Supple; No Lymphadenopathy (L), No Lymphadenopathy (R) Respiratory: Chest Non Tender, Lungs Clear, Normal Breath Sounds, No Accessory Muscle Use, No Respiratory Distress Cardiovascular: Regular Rate, Rhythm, Normal Peripheral Pulses Gastrointestinal: Normal Bowel Sounds, No Pulsatile Mass, Non Tender, Soft Rectal: Deferred Extremity: Normal Capillary Refill, Normal Inspection, No Pedal Edema Neurologic/Psychiatric: Alert, Oriented x3 Skin: Normal Color, Warm/Dry Progress/Results/Core Measures Suspected Sepsis SIRS Temperature: Pulse: 93 Respiratory Rate: 20 Blood Pressure 142 /82 Mean: 102 Results/Orders Vital Signs/I&O 05/07/21 05/07/21 16:59 18:06 Temp 36.6 36.6 Pulse 93 93 Resp 20 20 B/P (MAP) 142/82 (102) 142/82 Pulse Ox 96 96 O2 Delivery Room Air Room Air Capillary Refill : Less Than 3 Seconds Blood Pressure Mean: 102 Progress Note : Progress Note Counseled patient on lab results and advised that if she wanted to repeat test today and add on a chest x-ray that we could do those things. Patient states that she just had labs and if her hemoglobin is unchanged she did not feel it would be necessary to repeat labs tonight. She has a CT scan scheduled for tomorrow which will give finer detail of her chest and a plain film. She has had no vomiting so she wanted to try drinking fluids at home rather than getting an IV to give any fluids. Counseled to keep pushing fluids and hydrate at home. Check back with the clinic if continued symptoms or not improving. If having worsening symptoms and recheck or return for further evaluation Departure Impression Primary Impression: Light-headed feeling Additional Impression: Chronic anemia Disposition: HOME, SELF-CARE Condition: Stable Departure-Patient Inst. Decision time for Depature: 18:02 Referrals: [facility] (PCP) Primary Care Physician ADDY SMART APRN (Family) Primary Care Physician Patient Instructions: Anemia, Possibly From Low Iron, Adult ED Add. Discharge Instructions: Continue to drink more water and electrolyte drinks to help with hydration Follow up for your CT scan tomorrow. Check with clinic if continued concerns and return to ER for worsening symptoms All discharge instructions reviewed with patient and/or family. Voiced understanding. MAGALIE JOSÉ MD May 07, 2021 17:40
[2021-05-07 18:06] VITALS: BP 142/82
== END 2021-05-07 18:07 | disposition home or self-care (01) ==
LOC: EDUNIT# 16:47 → ER FS 16:48
DX: R42 Dizziness and giddiness (principal); D64.9 Anemia, unspecified; J44.9 Chronic obstructive pulmonary disease, unspecified; I10 Essential (primary) hypertension; F41.9 Anxiety disorder, unspecified; F32.9 Major depressive disorder, single episode, unspecified; E11.9 Type 2 diabetes mellitus without complications; Z87.891 Personal history of nicotine dependence; Z86.711 Personal history of pulmonary embolism; Z86.718 Personal history of other venous thrombosis and embolism; Z79.01 Long term (current) use of anticoagulants; Z79.899 Other long term (current) drug therapy
CPT/HCPCS: 99281

== ENCOUNTER → 2021-05-10 | Outpatient (CLI) | payer OTHER ==
[~2021-05-10] MED LIST changes: +GADOTERATE 0.5 MMOL/ML (CLARISCAN) 20 ML VIAL IV ONE
--- NOTE | 2021-05-10 16:54 | Diagnostic Imaging Report ---
PROCEDURE: MR imaging of the brain with and without contrast. TECHNIQUE: Multiplanar, multisequence MR imaging of the brain was performed with and without contrast. INDICATION: Total body weakness. Studies performed to evaluate for MS. No prior studies are available for comparison. Ventricles and sulci are appropriate for the patient's age. No diffusion restriction is identified. The normal expected flow-voids within the carotid siphons are seen. No periventricular or subcortical white matter lesions are identified. No acute intra-axial or extra-axial hemorrhage is detected. No abnormal enhancement is identified following contrast administration. Corpus callosum is unremarkable. The sella and parasellar structures are unremarkable. IMPRESSION: Unremarkable pre and postcontrast MRI of the brain. Dictated by: Dictated on workstation # [id number]
== END ==
LOC: RAD 12:58
PROVIDERS: ATTEND Nurse Practitioner Family
DX: R53.1 Weakness (principal); G25.81 Restless legs syndrome; M54.2 Cervicalgia; G44.89 Other headache syndrome; R42 Dizziness and giddiness; Z91.81 History of falling
CPT/HCPCS: 70553

== ENCOUNTER → 2021-05-15 | Outpatient (CLI) | payer OTHER ==
[~2021-05-15] MED LIST changes: +CATHETER FLUSH 10 ML SYR IV PRN; -GADOTERATE 0.5 MMOL/ML (CLARISCAN) 20 ML VIAL IV ONE; +HOLD METFORMIN - RECEIVED CONTRAST 20 ML VIAL IV SCH; +IOHEXOL 350 MG/ML 100 ML (OMNIPAQUE 350) VIAL IV ONE; +NS 100 ML (IVPB) BAG IV ONE
--- NOTE | 2021-05-15 12:20 | Diagnostic Imaging Report ---
EXAMINATION: CT abdomen and pelvis with intravenous contrast. TECHNIQUE: Multiple contiguous axial images were obtained through the abdomen and pelvis after the uneventful administration of intravenous contrast. All CT scans use one or more of the following dose optimizing techniques: automated exposure control, MA and/or KvP adjustment based on patient size and exam type or iterative reconstruction. HISTORY: ABD PAIN COMPARISON: 04/03/2020 FINDINGS: Lung bases: Bibasilar dependent atelectasis. Solid organs: There are irregular areas of hypoattenuation seen within hepatic segment 4 (series 3 image 28, 24). The gallbladder is surgically absent. There is no biliary ductal dilation. Pancreas is normal. Spleen is normal. Adrenal glands are normal. The kidneys are normal without hydronephrosis. Bowel: The stomach and small bowel are normal without obstruction. Colon is unremarkable. No signs of acute appendicitis. Peritoneum: There is no intraperitoneal free fluid or free air. No suspicious lymphadenopathy. There is a cystic lesion within the right lower abdomen which measures 4.4 cm without visualized solid component. This is increased in size from 04/03/2020 where it previously measured 2.9 cm. Vasculature: Calcification of the aorta without aneurysm. Musculoskeletal: Degenerative changes of the spine without suspicious osseous lesion or compression fracture. Bilateral L5 pars defects resulting in grade 1 anterolisthesis of L5 on S1. Surgical changes from anterior abdominal hernia repair. Pelvis: The uterus is surgically absent. No adnexal mass. The urinary bladder is normal. IMPRESSION: 1. No acute abnormality in the abdomen or pelvis. 2. Increased size of the 4.4 cm cystic lesion within the right lower quadrant. Differential consideration could include enteric duplication cyst, primary retroperitoneal cyst, or enlarging right ovarian cystic lesion. Recommend correlation with any history of right salpingo-oophorectomy and ultrasound evaluation. 3. Irregular areas of hypoattenuation seen within hepatic segment 4 which are new from 04/03/2020. This is indeterminate and could be seen with fatty infiltration or prior injury/infection. Consider follow-up with MRI with Gadavist IV contrast. Dictated by: Dictated on workstation # [id number]
== END ==
LOC: RAD FS 11:29
PROVIDERS: ATTEND Nurse Practitioner Family
DX: R19.00 Intra-abdominal and pelvic swelling, mass and lump, unspecified site (principal); Z90.711 Acquired absence of uterus with remaining cervical stump; Z90.49 Acquired absence of other specified parts of digestive tract
CPT/HCPCS: 74177

== ENCOUNTER 2021-05-23 06:00 | Outpatient (CLI) | payer OTHER ==
[~2021-05-23] VITALS: Ht 154.9 cm; Wt 93.6 kg
[~2021-05-23 06:00] MED LIST changes: -CATHETER FLUSH 10 ML SYR IV PRN; -HOLD METFORMIN - RECEIVED CONTRAST 20 ML VIAL IV SCH; -IOHEXOL 350 MG/ML 100 ML (OMNIPAQUE 350) VIAL IV ONE; -NS 100 ML (IVPB) BAG IV ONE
[2021-05-23] MEDS ORDERED: RIVA20TA PO (11:06)
[2021-05-29] MEDS ORDERED: TRAM50TA3 PO (11:50)
== END 2021-05-23 11:15 | disposition home or self-care (01) ==
LOC: PREOP 06:00
PROVIDERS: ATTEND Surgery
DX: Z01.818 Encounter for other preprocedural examination (principal)

== ENCOUNTER 2021-05-29 08:38 | Day surgery (SDC) | payer OTHER ==
[~2021-05-29] VITALS: Ht 154.9 cm; Wt 93.6 kg
[2021-05-29] VITALS (13 sets, daily range): BP systolic 132–164; BP diastolic 76–91
[~2021-05-29 08:38] MED LIST changes: +CYCL10TA25 PO; -CYCL10TA9 PO; +MONT-40 PO; -MONT10TA32 PO; -POTA10TA36 PO; +POTA10TA37 PO; +RIVA20TA PO
--- NOTE | 2021-05-29 08:56 | Progress Note-Pre Operative ---
Pre-Operative Progress Note H&P Reviewed The H&P was reviewed, patient examined and no changes noted. Time Seen by Provider: 08:53 Date H&P Reviewed: May 29, 2021 Time H&P Reviewed: 08:53 Pre-Operative Diagnosis: Intraperitoneal mass GIORGIO LEONARD DO May 29, 2021 08:56
[2021-05-29] MEDS ORDERED: CLINDAMYCIN 600 MG/50 ML IVPB 50 ML IV ONE (09:00)
[2021-05-29] MEDS ORDERED: LIDOCAINE/EPI 1%-1:100,000 (XYLOCAINE) 20ML ONE (09:15)
[2021-05-29] MEDS ORDERED: MIDAZOLAM 2 MG/2 ML (VERSED) VIAL ONE (09:32)
[2021-05-29] MEDS ORDERED: proPOfol 200 MG/20 ML (DIPRIVAN) VIAL IV ONE (09:32)
[2021-05-29] MEDS ORDERED: fentaNYL INJ 100 MCG/2 ML AMP ONE ×3 (09:32→12:29)
[2021-05-29] MEDS ORDERED: ROCURONIUM 50 MG/5 ML (ZEMURON) VIAL IV ONE (09:32)
[2021-05-29] MEDS ORDERED: LIDOCAINE PF 2% 5 ML (XYLOCAINE) VIAL ONE (09:32)
[2021-05-29] MEDS: LACTATED RINGERS 1,000 ML IV PRN ×2 (09:41→11:26)
[2021-05-29] MEDS ORDERED: ASPI-1238 PO (10:02)
[2021-05-29] MEDS ORDERED: GLYCOPYRROLATE 0.2 MG/ML (ROBINUL) 2 ML VIAL ONE (11:47)
[2021-05-29] MEDS ORDERED: NEOSTIGMINE 3 MG/3 ML VIAL ONE (11:47)
--- NOTE | 2021-05-29 11:48 | Progress Note-Post Operative ---
Post-Operative Progess Note Surgeon (s)/Public Employment Mediator (s) Surgeon GIORGIO LEONARD DO Public Employment Mediator: Kim Pre-Operative Diagnosis Intraperitoneal mass Post-Operative Diagnosis Retroperitoneal mass Procedure & Operative Findings Date of Procedure 05/29/21 Procedure Performed/Findings Laparoscopic excision of retroperitoneal mass Anesthesia Type GET Estimated Blood Loss Estimated blood loss (mL): less than 10ml Specimens/Packing Specimens Removed retroperitoneal mass GIORGIO LEONARD DO May 29, 2021 11:48
[2021-05-29] MEDS ORDERED: TRAM50TA3 PO (11:50)
--- NOTE | 2021-05-29 11:51 | Discharge Inst-Surgical ---
Discharge Inst-Surgical Depart Medication/Instructions New, Converted or Re-Newed RX: Transmitted to Pharmacy Patient Instructions Follow up Appt: Make appointment for 1 week. [phone] Instructions: No lifting greater than 20 pounds. No strenuous activity. May shower in 24 hours, no tub bath or soaking. Use incentive spirometer at home as directed. No Smoking Skin/Wound Care: May remove bandages in am. You need to leave the Dermabond on incision it will fall off on it's own. Symptoms to Report: Appetite Changes, Extremity Discoloration, Numbness/Tingling, Swelling Increased, Bleeding Excessive, Eyesight Changes, Pain Increased, Urine Color Change, Constipation(Persistent), Fever over 101 degree F, Pain/Pressure in chest, Urinating Difficulty, Cough Up/Vomit Blood, Heart Beat Irreg/Pounding, Pain/Pressure in jaw, Cramps in feet or legs, Lightheadedness, Pain/Pressure in shoulder, Diarrhea(Persistent), Memory Changes Suddenly, Questions/Concerns, Weight gain consecutive days, Dizziness/Fainting, Nausea/Vomiting, Shortness of Breath, Weight gain over 2 pounds If questions or concerns contact your physician Or seek help at emergency department. Activity Activity as Tolerated: Yes Activity Instructions: Avoid Stress to Incision Driving Instructions: No Driving/Refer to Dr. Silva Discharge Diet: No Restrictions Diet After 24 Hours: Clear Liquid if Nauseous If Any Problems/Questions/Issu: Contact Your Physician, Go to Emergency Room Skin/Wound Care Infection Signs and Symptoms: Increased Redness, Foul Odor of Wound, Increased Drainage, Skin Itchy or Has a Rash, Increased Swelling, Temperature Above 101 F Wound Care Comment: Heating pad to shoulder or neck for pain tonight Bathing Instructions: Shower Stitches/[place]/Dermabond Dis: Dermabond Ice Pack: Ice On and Off Site GIORGIO LEONARD DO May 29, 2021 11:51
[2021-05-29] MEDS ORDERED: SUGAMMADEX 500 MG/5 ML VIAL (BRIDION) IV ONE (11:54)
[2021-05-29] MEDS ORDERED: SEVOFLURANE (ULTANE) 15 ML INHAL SOLN ONE (11:59)
[2021-05-29] MEDS ORDERED: fentaNYL INJ 100 MCG/2 ML AMP IVP ONE (12:15)
[2021-05-29] MEDS ORDERED: ONDANSETRON 4 MG/2 ML (SDV) Z0FRAN IVP PRN (12:15)
[2021-05-29] MEDS ORDERED: ONDANSETRON 4 MG/2 ML (SDV) Z0FRAN ONE (12:29)
--- NOTE | 2021-05-29 13:00 | Anesthesia-General Post-Op ---
General Patient Condition Mental Status/LOC: Same as Preop Cardiovascular: Satisfactory Nausea/Vomiting: Absent Respiratory: Satisfactory Pain: Controlled Complications: Absent Post Op Complications Complications None Follow Up Care/Instructions Patient Instructions None needed. Anesthesia/Patient Condition Patient Condition Patient is doing well, no complaints, stable vital signs, no apparent adverse anesthesia problems. No complications reported per nursing. LYNDA GARZA CRNA May 29, 2021 13:00
--- NOTE | 2021-05-29 19:40 | OPERATIVE REPORT ---
DATE OF SERVICE: 05/29/2021 PREOPERATIVE DIAGNOSIS: Possible intraperitoneal mass. POSTOPERATIVE DIAGNOSES: 1. Retroperitoneal mass. 2. Adhesions. PROCEDURE: Laparoscopic excision of retroperitoneal mass. SURGEON: Matt Garcia DO THREADER: Willy Alvarez DO. ANESTHESIA: General endotracheal tube. SPECIMEN: Retroperitoneal mass. BLOOD LOSS: Less than 10 mL. FLUIDS: Per anesthesia. POSTOPERATIVE CONDITION: Stable. INDICATION FOR PROCEDURE: The patient is a 55-year-old female who has had some pain on the right side, which was getting worse. She had mass located in the abdomen, thought that this could be the cause of it, although I did talk to her about the fact that it also might not be the cause of her pain and taken out might not change anything. She still wanted removed. FINDINGS: The patient had a mass that was turned out to the retroperitoneum, looked to me like a cyst. It was sent to pathology. She also had adhesions from her previous surgery. PROCEDURE NOTE: After informed consent was obtained, the patient was brought to the operating room, placed on the table in supine position. She was sterilely prepped and draped in normal fashion. I started by making an incision in left upper quadrant, infiltrated with local, then made an incision with #11 blade, carried down through the skin into subcutaneous tissue, deepened down to subcutaneous tissue with Bovie electrocautery down to the fascia. Fascia was incised with Bovie electrocautery, then bluntly spread the muscle, went to the posterior fascia, spread the muscle and then into the peritoneum. Placed a limited trocar port and then created pneumoperitoneum, could see adhesions to the previous mesh. Pictures were taken, placed 2 more ports, 5 mm port in the left side, one right in the middle of the abdomen and one in left lower quadrant. Using local lidocaine, 11 blade for stab incision and VersaStep system, all done under direct visualization. I started taking these adhesions down with blunt dissection as well as with the LigaSure. Once these adhesions were down, then able to see the abdomen, placed the patient in Trendelenburg and rotated to the left, looked down under the cecum and terminal ileum, in the right lower quadrant could see what looked like a retroperitoneal mass, carefully came across the top, unroofed the retroperitoneum and then started dissecting out the mass with the LigaSure as well as with some blunt dissection, able to get it out of the retroperitoneum, placed a bag in the abdomen and had placed 2 more ports in normal fashion using local lidocaine, 11 blade and the [employer] Care[employer]Step system to help take this out. These were placed on the right side, able to finally shell this mass out, placed in a bag and then pulled the bag out of the left upper quadrant incision. There was some minimal bleeding from the adhesions. This was controlled with the LigaSure. We elected to place a Surgicel into the retroperitoneal area. There was no bleeding at the end of the case. Placed the omentum back into the right lower quadrant as well. The patient was placed supine and then removed all ports under direct visualization, allowed pneumoperitoneum to escape. Closed the left upper quadrant incision, closing with 0 Vicryl [id number] suture. Copiously irrigated incisions, then closed the four 5 mm incisions with a single interrupted 4-0 undyed Monocryl subcuticular stitch and closed the left upper quadrant incision with 3 interrupted 4-0 undyed Monocryl subcuticular stitches. Area was cleaned and dried. Dermabond placed as well as Band-Aids. The patient tolerated the procedure. Sponge, instrument and needle count correct at the end the end of the case. Dr. Alvarez assisted in this case helping to make incisions, close incisions as well as identify anatomy and hold anatomy out of the way. He helped to take the retroperitoneal mass out as well. Job ID: [id number] DocumentID: [id number] Dictated Date: 05/29/2021 13:49:47 Insurance Verify Rep Date: 05/29/2021 19:40:10 Dictated By: DO SONY MULLEN
== END 2021-05-29 15:15 | disposition home or self-care (01) ==
LOC: SDC 08:38
PROVIDERS: ATTEND Surgery
DX: D20.0 Benign neoplasm of soft tissue of retroperitoneum (principal); K66.0 Peritoneal adhesions (postprocedural) (postinfection); J44.9 Chronic obstructive pulmonary disease, unspecified; I27.20 Pulmonary hypertension, unspecified; K21.9 Gastro-esophageal reflux disease without esophagitis; E11.9 Type 2 diabetes mellitus without complications; M79.7 Fibromyalgia; F41.9 Anxiety disorder, unspecified; F32.A Depression, unspecified; Z87.891 Personal history of nicotine dependence; Z90.89 Acquired absence of other organs; Z90.49 Acquired absence of other specified parts of digestive tract
CPT/HCPCS: 82947; 87081; 88307

== ENCOUNTER → 2021-10-22 | Outpatient (CLI) | payer OTHER, MEDICAID ==
[~2021-10-22] MED LIST changes: +ASPI-1238 PO
--- NOTE | 2021-10-22 09:43 | Diagnostic Imaging Report ---
INDICATION: Fall with left hip pain. TIME OF EXAM: 9:19 AM. FINDINGS: Three views of the left hip were obtained. The femoroacetabular alignment is normal. The joint space is fairly well-maintained. The femoral head and neck are intact. No fractures are seen. IMPRESSION: No acute bony abnormality is detected. Dictated by: Dictated on workstation # [id number]
== END ==
LOC: RAD FS 08:46
PROVIDERS: ATTEND Nurse Practitioner Family
DX: M25.552 Pain in left hip (principal); W19.XXXA Unspecified fall, initial encounter
CPT/HCPCS: 73502

== ENCOUNTER 2022-01-08 10:28 | Inpatient (IN) | payer OTHER, MEDICAID ==
[~2022-01-08] VITALS: Ht 152.4 cm; Wt 91.0 kg
[2022-01-08] MEDS ORDERED: NS IV 1000 ML 1,000 ML IV STA (10:41)
[2022-01-08] MEDS ORDERED: ONDANSETRON 4 MG/2 ML (SDV) Z0FRAN IVP ONE (10:45)
--- NOTE | 2022-01-08 10:46 | ED GI ---
General Chief Complaint: Abdominal/GI Problems Stated Complaint: ABD DISTENTION; VOMITING Source of Information: Patient Exam Limitations: No Limitations History of Present Illness Date Seen by Provider: Jan 08, 2022 Time Seen by Provider: 10:30 Initial Comments 56yoF with PMH of COPD, DM, HTN, HLD coming in due to abd pain for 4 days with nb/nb vomiting for 2 days. Had a normal BM this AM. Reports fevers at home. has had congestion and sinus issues since yesterday. Denies any CP, SOB, weakness, numbness, rash, dysuria, diarrhea, or any other concerns. Allergies and Home Medications Allergies Coded Allergies: Penicillins (Verified Allergy, Unknown, 03/02/20) hydrocodone (Verified Allergy, Unknown, 12/05/19) latex (Verified Allergy, Unknown, 12/05/19) morphine (Verified Allergy, Unknown, 12/05/19) Uncoded Allergies: PLASTIC TAPE (Allergy, Mild, 12/05/19) Patient Home Medication List Home Medication List Reviewed: Yes Albuterol Sulfate (Proair Hfa) 1 Puff Puff, 2 PUFF PO Q4H PRN for SHORTNESS OF BREATH, (Reported) Entered as Reported by: RANDA BALDWIN on 12/06/19 0837 Atorvastatin Calcium (Atorvastatin Calcium) 20 Mg Tablet, 20 MG PO DAILY, (Repor essence) Entered as Reported by: OLESYA LEHMAN on 07/03/20 0913 Calcium Carbonate (Tums X-Str) 300 Mg Tab.chew, 600 MG PO DAILY, (Reported) Entered as Reported by: OLESYA LEHMAN on 07/03/20 0913 Cariprazine Hydrochloride (Vraylar) 3 Mg Capsule, 3 MG PO DAILY, (Reported) Entered as Reported by: RANDA BALDWIN on 12/06/19 0837 Cetirizine HCl (Zyrtec) 10 Mg Tablet, 10 MG PO DAILY, (Reported) Entered as Reported by: SARAH BARRY on 01/16/20 1106 Cinnamon Bark (Cinnamon) 500 Mg Capsule, 500 MG PO DAILY, (Reported) Entered as Reported by: DONALDO ARGUETA on 02/06/21 0957 Clotrimazole/Betamethasone Dip (Clotrimazole-Betamethasone Crm) 15 Gm Cream..g., 15 GM TP DAILY PRN for RASH, (Reported) Entered as Reported by: OLESYA LEHMAN on 07/03/20 0913 Cranberry Conc/C/Bacill Coag (Azo Cranberry Tablet) 1 Each Tablet, 1 EACH PO D AILY, (Reported) Entered as Reported by: SARAH BARRY on 01/16/20 1110 Diazepam (Diazepam) 5 Mg Tablet, 5 MG PO HS, (Reported) Entered as Reported by: ARNDA BALDWIN on 12/06/19 08 Estradiol (Estrace Tablet) 1 Mg Tablet, 1 MG PO HS, (Reported) Entered as Reported by: SARAH BARRY on 01/16/20 110 Fluticasone Propionate (Fluticasone Propionate) 16 Gm Aubrey.susp, 1 SPRAY NSEACH DAILY PRN for CONGESTION, (Reported) Entered as Reported by: SARAH BARRY on 01/16/20 110 Fluticasone/Vilanterol (Breo Ellipta 200-25 Mcg INH) 1 Each Blst.w.dev, 1 EACH IH UD, (Reported) Entered as Reported by: DONALDO ARGUETA on 02/06/21 0957 Furosemide (Furosemide) 40 Mg Tablet, 40 MG PO DAILY Prescribed by: SORAYA DE LA TORRE on 07/03/20 111 Gabapentin (Neurontin) 300 Mg Capsule, 600 MG PO TID, (Reported) Entered as Reported by: RANDA BALDWIN on 12/06/19 08 Ipratropium/Albuterol Sulfate (Iprat-Albut 0.5-3(2.5) mg/3 ml) 3 Ml Ampul.neb, 1 VIAL NEB Q6H PRN for SHORTNESS OF BREATH, (Reported) Entered as Reported by: RANDA BALDWIN on 12/06/19 08 Vandiver Carbonate (Vandiver Carbonate) 300 Mg Capsule, 600 MG PO HS, (Reported) Entered as Reported by: RANDA BALDWIN on 12/06/19 08 Vandiver Carbonate (Vandiver Carbonate) 300 Mg Capsule, 300 MG PO DAILY, (Reported) Entered as Reported by: RANDA BALDWIN on 12/06/19 08 Montelukast Sodium (Montelukast Sodium) 10 Mg Tablet, 10 MG PO HS, (Reported) Entered as Reported by: RANDA BALDWIN on 12/06/19 08 Naloxone HCl (Narcan) 4 Mg Aubrey, 1 SPRAY NS UD PRN for OPIOID OVERDOSE, (Reported) Entered as Reported by: SARAH BARRY on 01/16/20 1106 Nitrofurantoin Macrocrystal (Nitrofurantoin) 100 Mg Capsule, 100 MG PO DAILY, (Reported) Entered as Reported by: OLESYA LEHMAN on 07/03/20912 Ondansetron (Ondansetron Odt) 4 Mg Tab.rapdis, 4 MG PO Q8H PRN for NAUSEA/VOMITING, (Reported) Entered as Reported by: OLESYA LEHMAN on 07/03/20912 Pregabalin (Pregabalin) 150 Mg Capsule, 150 MG PO BID, (Reported) Entered as Reported by: RANDA BALDWIN on 12/06/19 09 Tiotropium [place] (Spiriva) 1 Inh Aerp, 2 INH IH DAILY, (Reported) Entered as Reported by: OLESYA LEHMAN on 07/03/20912 Tramadol HCl (Tramadol HCl) 50 Mg Tablet, 50 MG PO TID PRN for PAIN-MODERATE (5- 7) Prescribed by: GIORGIO LEONARD on 05/29/21 1150 Trazodone HCl (Trazodone HCl) 300 Mg Tablet, 300 MG PO HS PRN for INSOMNIA, (Reported) Entered as Reported by: OLESYA LEHMAN on 07/03/20912 Review of Systems Review of Systems Constitutional: chills, malaise Respiratory: Cough Cardiovascular: Denies Chest Pain Gastrointestinal: Nausea, Vomiting Genitourinary: Denies Burning Musculoskeletal: no symptoms reported Skin: no symptoms reported Psychiatric/Neurological: No Symptoms Reported Endocrine: No Symptoms Reported Hematologic/Lymphatic: No Symptoms Reported All Other Systems Reviewed Negative Unless Noted: Yes Past Vsrfmmk-Pvzgyn-Kkzxuo Hx Patient Social History Substance use?: No Immunizations Up To Date First/Initial COVID19 Vaccinat: 09/2020 Second COVID19 Vaccination Musa: 09/2020 Seasonal Allergies Seasonal Allergies: No Past Medical History Surgeries: Yes (hemorrhoidecotomy, bladder pin-up, hernia repairs x4with mesh) Appendectomy, Gallbladder, 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 Respiratory: Yes Asthma, Pulmonary Embolism, COPD Currently Using CPAP: No Currently Using BIPAP: No Cardiac: Yes Deep Vein Thrombosis, Hypertension Neurological: No 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 History: 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 Genitourinary: Yes Kidney Stones, UTI-Chronic Gastrointestinal: Yes Gastroesophageal Reflux, Hemorrhoids, Irritable Bowel Musculoskeletal: Yes Arthritis, Fibromyalgia Endocrine: Yes Diabetes, Non-Insulin dep HEENT: No Cancer: No Psychosocial: Yes Anxiety, Depression Integumentary: No Blood Disorders: Yes (Factor 5) Adverse Reaction/Blood Tranf: No Family Medical History Cardiovascular disease 19 MOTHER Colon cancer 19 FATHER G8 BROTHER G8 BROTHER Diabetes mellitus 19 MOTHER G8 BROTHER Physical Exam Vital Signs Vital Signs - First Documented 01/08/22 10:30 Temp 36.3 Pulse 118 Resp 16 B/P (MAP) 98/60 (73) Pulse Ox 95 O2 Delivery Room Air Capillary Refill : Height/Weight/BMI Height: 5'2.00" Weight: 180lbs. oz. 81.277975lm; 39.00 BMI Method:Estimated General Appearance: WD/WN, no apparent distress HEENT: PERRL/EOMI, normal ENT inspection, pharynx normal Neck: non-tender, full range of motion, supple, normal inspection Respiratory: chest non-tender, lungs clear, normal breath sounds, no respiratory distress, no accessory muscle use Cardiovascular: no edema, no murmur, tachycardia Gastrointestinal: normal bowel sounds, soft; No distended, No guarding, No rebound; tenderness (tender with light touch but not when pushing with stethoscope) Extremities: normal range of motion, non-tender, normal inspection, no calf tenderness, normal capillary refill Back: normal inspection, no CVA tenderness Neurologic/Psychiatric: no motor/sensory deficits, alert, normal mood/affect Skin: normal color, warm/dry Lymphatic: no adenopathy Focused Exam Lactate Level 01/08/22 11:45: Lactic Acid Level Laboratory Tests Test 01/08/22 11:45 Progress/Results/Core Measures Results/Orders Lab Results Laboratory Tests Test 01/08/22 10:37 01/08/22 10:45 01/08/22 11:45 Range/Units Urine Color YELLOW Urine Clarity CLOUDY Urine pH 5.5 5-9 Urine Specific [place] >=1.030 1.016-1.022 Urine Protein 1+ H NEGATIVE Urine Glucose (UA) NEGATIVE NEGATIVE Urine Ketones NEGATIVE NEGATIVE Urine Nitrite NEGATIVE NEGATIVE Urine Bilirubin 2+ H NEGATIVE Urine Urobilinogen 0.2 < = 1.0 MG/DL Urine Leukocyte Esterase TRACE H NEGATIVE Urine RBC (Auto) 1+ H NEGATIVE Urine RBC NONE /HPF Urine WBC 5-10 H /HPF Urine Squamous Epithelial Cells 25-50 H /HPF Urine Crystals NONE /LPF Urine Bacteria MODERATE H /HPF Urine Casts NONE /LPF Urine Mucus NEGATIVE /LPF Urine Culture Indicated YES White Blood Count 12.6 H 4.3-11.0 10^3/uL Red Blood Count 5.06 3.80-5.11 10^6/uL Hemoglobin 14.4 11.5-16.0 g/dL Hematocrit 45 35-52 % Mean Corpuscular Volume 88 80-99 fL Mean Corpuscular Hemoglobin 29 25-34 pg Mean Corpuscular Hemoglobin Concent 32 32-36 g/dL Red Cell Distribution Width 14.2 10.0-14.5 % Platelet Count 295 130-400 10^3/uL Mean Platelet Volume 10.9 9.0-12.2 fL Immature Granulocyte % (Auto) 0 % Neutrophils (%) (Auto) 66 42-75 % Lymphocytes (%) (Auto) 21 12-44 % Monocytes (%) (Auto) 12 0-12 % Eosinophils (%) (Auto) 1 0-10 % Basophils (%) (Auto) 0 0-10 % Neutrophils # (Auto) 8.3 H 1.8-7.8 10^3/uL Lymphocytes # (Auto) 2.6 1.0-4.0 10^3/uL Monocytes # (Auto) 1.5 H 0.0-1.0 10^3/uL Eosinophils # (Auto) 0.1 0.0-0.3 10^3/uL Basophils # (Auto) 0.0 0.0-0.1 10^3/uL Immature Granulocyte # (Auto) 0.1 0.0-0.1 10^3/uL Prothrombin Time 12.8 12.2-14.7 SEC INR Comment 0.9 0.8-1.4 Sodium Level 135 135-145 MMOL/L Potassium Level 3.8 3.6-5.0 MMOL/L Chloride Level 95 L 98-107 MMOL/L Carbon Dioxide Level 22 21-32 MMOL/L Anion Gap 18 H 5-14 MMOL/L Blood Urea Nitrogen 48 H 7-18 MG/DL Creatinine 2.59 H 0.60-1.30 MG/DL Estimat Glomerular Filtration Rate 21 BUN/Creatinine Ratio 19 Glucose Level 153 H 70-105 MG/DL Calcium Level 9.2 8.5-10.1 MG/DL Corrected Calcium 9.2 8.5-10.1 MG/DL Magnesium Level 1.6 1.6-2.4 MG/DL Total Bilirubin 0.5 0.1-1.0 MG/DL Aspartate Amino Transf (AST/SGOT) 13 5-34 U/L Alanine Aminotransferase (ALT/SGPT) 23 0-55 U/L Alkaline Phosphatase 91 40-136 U/L Total Protein 7.8 6.4-8.2 GM/DL Albumin 4.0 3.2-4.5 GM/DL Lipase 34 8-78 U/L Influenza Type A (RT-PCR) Not Detected Not Detecte Influenza Type B (RT-PCR) Not Detected Not Detecte SARS-CoV-2 RNA (RT-PCR) Not Detected Not Detecte My Orders Orders - RONEY SAVAGE MD Cbc With Automated Diff (01/08/22 10:38) Comprehensive Metabolic Panel (01/08/22 10:38) Influenza A And B By Pcr (01/08/22 10:38) Covid 19 Inhouse Test (01/08/22 10:38) Lipase (01/08/22 10:38) Magnesium (01/08/22 10:38) Protime With Inr (01/08/22 10:38) Ua Culture If Indicated (01/08/22 10:38) Ns Iv 1000 Ml (Sodium Chloride 0.9%) (01/08/22 10:41) Ondansetron Injection (Zofran Injectio (01/08/22 10:45) Famotidine Tablet (Pepcid Tablet) (01/08/22 11:00) Hyoscyamine Sl Tablet (Levsin Sl Tablet) (01/08/22 11:00) Acetaminophen Tablet (Tylenol Tablet) (01/08/22 11:00) Urine Culture (01/08/22 10:37) Iohexol Injection (Omnipaque 350 Mg/Ml 1 (01/08/22 11:00) Received Contrast (Hold Metformin- Contr (01/08/22 11:00) Ns (Ivpb) (Sodium Chloride 0.9% Ivpb Bag (01/08/22 11:00) Ct Abdomen/Pelvis Wo (01/08/22 10:53) Blood Culture (01/08/22 11:39) Lactic Acid Analyzer (01/08/22 11:39) Ns Iv 1000 Ml (Sodium Chloride 0.9%) (01/08/22 11:45) Ciprofloxacin Iv 400mg/200ml (Cipro Iv S (01/08/22 11:45) Ed Admission (Communication) (01/08/22 11:49) Medications Given in ED Current Medications Medications Dose Ordered Sig/Ren Route Start Time Stop Time Status Last Admin Dose Admin Acetaminophen 1,000 mg ONCE ONCE PO 01/08/22 11:00 01/08/22 11:01 DC 01/08/22 11:01 1,000 MG Ciprofloxacin/ Dextrose 200 ml @ 200 mls/hr ONCE ONCE IV 01/08/22 11:45 01/08/22 12:44 01/08/22 12:04 200 MLS/HR Famotidine 20 mg ONCE ONCE PO 01/08/22 11:00 01/08/22 11:01 DC 01/08/22 11:01 20 MG Hyoscyamine Sulfate 0.125 mg ONCE ONCE PO 01/08/22 11:00 01/08/22 11:01 DC 01/08/22 11:01 0.125 MG Ondansetron HCl 4 mg ONCE ONCE IVP 01/08/22 10:45 01/08/22 10:57 DC 01/08/22 10:54 4 MG Vital Signs/I&O 01/08/22 10:30 Temp 36.3 Pulse 118 Resp 16 B/P (MAP) 98/60 (73) Pulse Ox 95 O2 Delivery Room Air Progress Progress Note : Progress Note 56-year-old female with above history coming in due to abdominal pain with nausea and vomiting. The patient was mildly tachycardic on presentation and blo od pressure was slightly lower than her average. An IV was placed and she was given a bolus of IV fluids. She is otherwise afebrile, and I suspect she is volume depleted from the vomiting. Labs significant for slightly elevated white blood cell count and creatinine around 2.6 which is significantly more elevated than prior around 0.6. I suspect she has a prerenal cause of KRISTIE. The patient has urinated twice in the emergency department, so is still making urine which is a good thing. Urinalysis with what appears to be slightly dirty sample, but given the lower blood pressure, tachycardia, slightly elevated white blood cell count, we will treat her with antibiotics. She is allergic to penicillin with anaphylaxis, so she got ciprofloxacin. Given the significant KRISTIE, we will admit her to the hospital for further evaluation and management. Discussed the case with Dr. Arango who with admit the patient and would like her under inpatient status. Diagnostic Imaging Diagonstic Imaging: CT (abd/pelv) Comments [facility], [place] NAME: NICKIE CHUA [facility] REC#: [id number] PT STATUS: REG ER : 1965 PHYSICIAN: RONEY SAVAGE MD ADMIT DATE: 01/08/22/ER FS Draft Date of Exam:01/08/22 CT ABDOMEN/PELVIS WO CT ABDOMEN/PELVIS WO TECHNIQUE: Unenhanced CT imaging of the abdomen and pelvis was performed. 2-D reformats are created and submitted for interpretation. Automatic exposure controls were utilized to optimize patient dose. INDICATION: Right-sided abdominal pain and vomiting COMPARISON: 05/15/2021 FINDINGS: Evaluation of the abdominal viscera is suboptimal without contrast. Lower chest: Chronic atelectasis within the right lung base is unchanged. There are some centrilobular micronodules in the right middle lobe that were not included in [id number] on prior exam. Peritoneum: No free intraperitoneal air or fluid. Liver and biliary system: Diffuse hypoattenuation liver indicative of hepatic steatosis. More intense focal fatty infiltration also present along the gallbladder fossa. Cholecystectomy. No biliary duct dilatation. Spleen and Pancreas: Spleen is normal. Unenhanced pancreas is grossly normal. Adrenals: Normal. tract: No renal or ureteral calculi. No obstructive uropathy. 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. No adnexal mass. GI tract: Stomach is decompressed. There are multiple fluid-filled and mildly dilated loops of small bowel throughout the proximal mid portions. The distal small bowel loops are decompressed. In the right lower quadrant, there is a 10 to 15 cm length of wall thickening within the small bowel adjacent decompressed bowel loops, likely due to enteritis. No pericolonic inflammatory changes. Appendix is not seen. Vasculature and Lymph nodes: Normal caliber aorta. No abdominal or pelvic lymphadenopathy. Musculoskeletal: Chronic grade 2 anterolisthesis of L5 on S1 due to bilateral pars defects at L5. IMPRESSION: 1. There is a segment of acute enteritis in the right lower quadrant which results in mild proximal obstructing dilation of small bowel. This most likely due to ileus rather than mechanical obstruction. If deemed warranted, small bowel follow-through could provide additional assessment. 2. No perforation or abscess. 3. Diffuse hepatic steatosis. 4. Small region of cellular bronchiolitis in the right lung base could represent infection or aspiration. Dictated on workstation # [id number] Dict: 01/08/22 1203 Trans: 01/08/22 1212 [facility] [id number] Interpreted by: STEVEN BERMUDEZ MD Electronically signed by: Departure Impression Primary Impression: KRISTIE (acute kidney injury) Additional Impressions: Transient hypotension Vomiting in adult Disposition: 30 STILL A PATIENT Condition: Stable Admissions Decision to Admit Reason: Admit from ER (General) Decision to Admit/Date: Jan 08, 2022 Time/Decision to Admit Time: 11:45 Transfer Method of Transfer: EMS Departure-Patient Inst. Referrals: ADDY SMART APRN (PCP) Primary Care Physician [facility] (Family) Primary Care Physician RONEY SAVAGE MD Jan 08, 2022 10:46
[2022-01-08 10:47] LABS: CLARITY,URINE CLOUDY; COLOR,URINE YELLOW; GLUCOSE, URINE (UA) NEGATIVE (NEGATIVE); KETONES,URINE NEGATIVE (NEGATIVE); NITRITE,URINE NEGATIVE (NEGATIVE); PH,URINE 5.5 (5-9); PROTEIN,URINE 1+ (NEGATIVE)
[2022-01-08 10:59] LABS: BACTERIA,URINE MODERATE /HPF; BILIRUBIN,URINE 2+ (NEGATIVE); LEUKOCYTE ESTERASE ,URINE TRACE (NEGATIVE); SQUAMOUS EPITHELIAL CELL,UR 25-50 /HPF
[2022-01-08] MEDS ORDERED: HOLD METFORMIN - RECEIVED CONTRAST 20 ML VIAL IV SCH (11:00)
[2022-01-08] MEDS ORDERED: ACETAMINOPHEN 500 MG TAB (TYLENOL) PO ONE (11:00)
[2022-01-08] MEDS ORDERED: FAMOTIDINE 20 MG (PEPCID) TABLET PO ONE (11:00)
[2022-01-08] MEDS ORDERED: HYOSCYAMINE 0.125 MG (LEVSIN) TAB PO ONE (11:00)
[2022-01-08] MEDS ORDERED: NS 100 ML (IVPB) BAG IV ONE (11:00)
[2022-01-08] MEDS ORDERED: IOHEXOL 350 MG/ML 100 ML (OMNIPAQUE 350) VIAL IV ONE (11:00)
[2022-01-08 11:04] LABS: BASOPHILS % (AUTO) 0 % (0-10); EOSINOPHILS # (AUTO) 0.1 10^3/uL (0.0-0.3); EOSINOPHILS % (AUTO) 1 % (0-10); HEMATOCRIT 45 % (35-52); HEMOGLOBIN 14.4 g/dL (11.5-16.0); LYMPHOCYTES # (AUTO) 2.6 10^3/uL (1.0-4.0); LYMPHOCYTES % (AUTO) 21 % (12-44); MEAN CORPUSCULAR HEMOGLOBIN 29 pg (25-34); MEAN CORPUSCULAR HGB CONC 32 g/dL (32-36); MEAN CORPUSCULAR VOLUME 88 fL (80-99); MEAN PLATELET VOLUME 10.9 fL (9.0-12.2); MONOCYTES # (AUTO) 1.5 10^3/uL (0.0-1.0); MONOCYTES % (AUTO) 12 % (0-12); NEUTROPHILS # (AUTO) 8.3 10^3/uL (1.8-7.8); NEUTROPHILS % (AUTO) 66 % (42-75); PLATELET COUNT 295 10^3/uL (130-400); WHITE BLOOD COUNT 12.6 10^3/uL (4.3-11.0)
[2022-01-08 11:21] LABS: INR 0.9 (0.8-1.4); PROTHROMBIN TIME PATIENT 12.8 SEC (12.2-14.7)
[2022-01-08 11:30] LABS: POTASSIUM 3.8 MMOL/L (3.6-5.0)
[2022-01-08 11:31] LABS: BILIRUBIN,TOTAL 0.5 MG/DL (0.1-1.0); CALCIUM 9.2 MG/DL (8.5-10.1); CREATININE SERUM 2.59 MG/DL (0.60-1.30); MAGNESIUM 1.6 MG/DL (1.6-2.4); TOTAL PROTEIN 7.8 GM/DL (6.4-8.2)
[2022-01-08] MEDS ORDERED: NS IV 1000 ML 1,000 ML IV SCH (11:45)
[2022-01-08] MEDS ORDERED: CIPROFLOXACIN IV 400MG/200ML 200 ML IV ONE (11:45)
--- NOTE | 2022-01-08 12:13 | Diagnostic Imaging Report ---
CT ABDOMEN/PELVIS WO TECHNIQUE: Unenhanced CT imaging of the abdomen and pelvis was performed. 2-D reformats are created and submitted for interpretation. Automatic exposure controls were utilized to optimize patient dose. INDICATION: Right-sided abdominal pain and vomiting COMPARISON: 05/15/2021 FINDINGS: Evaluation of the abdominal viscera is suboptimal without contrast. Lower chest: Chronic atelectasis within the right lung base is unchanged. There are some centrilobular micronodules in the right middle lobe that were not included in [id number] on prior exam. Peritoneum: No free intraperitoneal air or fluid. Liver and biliary system: Diffuse hypoattenuation liver indicative of hepatic steatosis. More intense focal fatty infiltration also present along the gallbladder fossa. Cholecystectomy. No biliary duct dilatation. Spleen and Pancreas: Spleen is normal. Unenhanced pancreas is grossly normal. Adrenals: Normal. tract: No renal or ureteral calculi. No obstructive uropathy. 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. No adnexal mass. GI tract: Stomach is decompressed. There are multiple fluid-filled and mildly dilated loops of small bowel throughout the proximal mid portions. The distal small bowel loops are decompressed. In the right lower quadrant, there is a 10 to 15 cm length of wall thickening within the small bowel adjacent decompressed bowel loops, likely due to enteritis. No pericolonic inflammatory changes. Appendix is not seen. Vasculature and Lymph nodes: Normal caliber aorta. No abdominal or pelvic lymphadenopathy. Musculoskeletal: Chronic grade 2 anterolisthesis of L5 on S1 due to bilateral pars defects at L5. IMPRESSION: 1. There is a segment of acute enteritis in the right lower quadrant which results in mild proximal obstructing dilation of small bowel. This most likely due to ileus rather than mechanical obstruction. If deemed warranted, small bowel follow-through could provide additional assessment. 2. No perforation or abscess. 3. Diffuse hepatic steatosis. 4. Small region of cellular bronchiolitis in the right lung base could represent infection or aspiration. Dictated by: Dictated on workstation # [id number]
[2022-01-08 14:12] VITALS: BP 93/65
[2022-01-08] MEDS: NS IV 1000 ML 1,000 ML IV SCH ×3 (15:22→22:41)
[2022-01-08] MEDS: cefTRIAXone 1 GM PRE-MIX 50 ML IV SCH (15:22)
[2022-01-08 16:00] VITALS: BP 107/56
--- NOTE | 2022-01-08 17:02 | History & Physical ---
HPI History of Present Illness: 56 yo female presented to ER due to vomiting that started 4 days ago. She has had some mucus and some dark green, hasn't been able to eat in 4 days. Last 2 days hasn't kept down meds. Urine is dark yellow to brown. Has epigastric pain and lower back pain. Had a soft bowel movement today and 2 days ago. She tried ondansetron on day 1 which helped, but the next 2 days did not. Ondansetron in ER today was helpful. Date seen by provider: Jan 08, 2022 Time Seen by Provider: 17:30 Attending Physician Katie Rios Aprn PCP Admitting Physician: Nora Arango MD Attending Physician: Nora Arango MD Consult Date of Admission Jan 08, 2022 at 13:35 Home Medications Home Medications Reviewed patient Home Medication Reconciliation performed by pharmacy medication reconciliations senior service technician and/or nursing. Patients Allergies have been reviewed. Allergies Coded Allergies: Penicillins (Verified Allergy, Unknown, 03/02/20) hydrocodone (Verified Allergy, Unknown, 12/05/19) latex (Verified Allergy, Unknown, 12/05/19) morphine (Verified Allergy, Unknown, 12/05/19) Uncoded Allergies: PLASTIC TAPE (Allergy, Mild, 12/05/19) OIT-[id number]-Owswgz Hx Patient Social History Smoking Status: Former Smoker (quit in 1995) 2nd Hand Smoke Exposure: No Recent Hopitalizations: No Alcohol Use?: No Have you traveled recently?: No Immunizations Up To Date Influenza Vaccine Up-to-Date: No; Not Current First/Initial COVID19 Vaccinat: 09/2020 Second COVID19 Vaccination Musa: 09/2020 COVID19 Vaccine Rail Track Layer: Moderna Past Medical History PMHx: DMII Asthma COPD/emphysema HTN Fibromyalgia CHF DVT and PE Factor V leiden Anxiety SurgHx: Hernia repair x 4 Epigastric "growth removed" Cholecystectomy 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 Appendectomy EGD Colonoscopy, benign polyp 2020 Family Medical History Significant Family History: Cancer (father from colon cancer at age 43, brother diagnosed with colon ca at 50, brother diagnosed with colon ca at 55, paternal grandfather lung and colon ca at age 74, paternal grandmother colon ca at age 34) Family History: Cardiovascular disease 19 MOTHER Colon cancer 19 FATHER G8 BROTHER G8 BROTHER Diabetes mellitus 19 MOTHER G8 BROTHER Review of Systems ([facility]) Constitutional: dizziness (with standing up, resolves after a moment) Respiratory: cough (last night) Gastrointestinal: abdominal pain Psychiatric/Neurological: Headache Reviewed Test Results Reviewed Test Results Lab Laboratory Tests Test 01/08/22 10:37 01/08/22 10:45 01/08/22 11:45 01/08/22 15:13 Range/Units Urine Color YELLOW Urine Clarity CLOUDY Urine pH 5.5 5-9 Urine Specific [place] >=1.030 1.016-1.022 Urine Protein 1+ H NEGATIVE Urine Glucose (UA) NEGATIVE NEGATIVE Urine Ketones NEGATIVE NEGATIVE Urine Nitrite NEGATIVE NEGATIVE Urine Bilirubin 2+ H NEGATIVE Urine Urobilinogen 0.2 < = 1.0 MG/DL Urine Leukocyte Esterase TRACE H NEGATIVE Urine RBC (Auto) 1+ H NEGATIVE Urine RBC NONE /HPF Urine WBC 5-10 H /HPF Urine Squamous Epithelial Cells 25-50 H /HPF Urine Crystals NONE /LPF Urine Bacteria MODERATE H /HPF Urine Casts NONE /LPF Urine Mucus NEGATIVE /LPF Urine Culture Indicated YES White Blood Count 12.6 H 4.3-11.0 10^3/uL Red Blood Count 5.06 3.80-5.11 10^6/uL Hemoglobin 14.4 11.5-16.0 g/dL Hematocrit 45 35-52 % Mean Corpuscular Volume 88 80-99 fL Mean Corpuscular Hemoglobin 29 25-34 pg Mean Corpuscular Hemoglobin Concent 32 32-36 g/dL Red Cell Distribution Width 14.2 10.0-14.5 % Platelet Count 295 130-400 10^3/uL Mean Platelet Volume 10.9 9.0-12.2 fL Immature Granulocyte % (Auto) 0 % Neutrophils (%) (Auto) 66 42-75 % Lymphocytes (%) (Auto) 21 12-44 % Monocytes (%) (Auto) 12 0-12 % Eosinophils (%) (Auto) 1 0-10 % Basophils (%) (Auto) 0 0-10 % Neutrophils # (Auto) 8.3 H 1.8-7.8 10^3/uL Lymphocytes # (Auto) 2.6 1.0-4.0 10^3/uL Monocytes # (Auto) 1.5 H 0.0-1.0 10^3/uL Eosinophils # (Auto) 0.1 0.0-0.3 10^3/uL Basophils # (Auto) 0.0 0.0-0.1 10^3/uL Immature Granulocyte # (Auto) 0.1 0.0-0.1 10^3/uL Prothrombin Time 12.8 12.2-14.7 SEC INR Comment 0.9 0.8-1.4 Sodium Level 135 135-145 MMOL/L Potassium Level 3.8 3.6-5.0 MMOL/L Chloride Level 95 L 98-107 MMOL/L Carbon Dioxide Level 22 21-32 MMOL/L Anion Gap 18 H 5-14 MMOL/L Blood Urea Nitrogen 48 H 7-18 MG/DL Creatinine 2.59 H 0.60-1.30 MG/DL Estimat Glomerular Filtration Rate 21 BUN/Creatinine Ratio 19 Glucose Level 153 H 70-105 MG/DL Calcium Level 9.2 8.5-10.1 MG/DL Corrected Calcium 9.2 8.5-10.1 MG/DL Magnesium Level 1.6 1.6-2.4 MG/DL Total Bilirubin 0.5 0.1-1.0 MG/DL Aspartate Amino Transf (AST/SGOT) 13 5-34 U/L Alanine Aminotransferase (ALT/SGPT) 23 0-55 U/L Alkaline Phosphatase 91 40-136 U/L Total Protein 7.8 6.4-8.2 GM/DL Albumin 4.0 3.2-4.5 GM/DL Lipase 34 8-78 U/L Influenza Type A (RT-PCR) Not Detected Not Detecte Influenza Type B (RT-PCR) Not Detected Not Detecte SARS-CoV-2 RNA (RT-PCR) Not Detected Not Detecte Lactic Acid Level 3.11 *H 1.70 0.50-2.00 MMOL/L Physical Exam-([facility]) Physical Exam Vital Signs VS - Last 72 Hours, by Label 01/08/22 01/08/22 01/08/22 01/08/22 10:30 12:43 14:12 14:36 Temp 36.3 36.5 Pulse 118 97 95 Resp 16 16 20 B/P (MAP) 98/60 (73) 119/76 93/65 (74) Pulse Ox 95 95 93 O2 Delivery Room Air Room Air Room Air Room Air 01/08/22 16:00 Temp 37.2 Pulse 93 Resp 20 B/P (MAP) 107/56 (73) Pulse Ox 94 O2 Delivery Room Air Capillary Refill : Less Than 3 Seconds General Appearance: no apparent distress, obese Respiratory: lungs clear, normal breath sounds Cardiovascular: regular rate, rhythm, no murmur Gastrointestinal: normal bowel sounds, distended, tenderness (diffuse) Extremities: no pedal edema Assessment/Plan Assessment/Plan Admission Status: Inpatient Order (span 2 midnights) Reason for Inpatient Admission: KRISTIE with ileus (1) Enteritis Status: Acute Assessment & Plan: Flagyl (2) Ileus Status: Acute Assessment & Plan: Passing stool yesterday, clear liquid with caution. Surgery consulted, appreciate recommendations. (3) Vomiting Status: Acute Assessment & Plan: Ondansetron, IV hydration (4) Hypotension due to hypovolemia Status: Acute Assessment & Plan: Improved after 2 liters bolus in ER, continue NS @ 150 mls/hr (5) KRISTIE (acute kidney injury) Status: Acute Assessment & Plan: Secondary to hypovolemia, continue IVF and monitor (6) Diabetes mellitus, type 2 Status: Chronic Assessment & Plan: Sliding scale insulin (7) COPD (chronic obstructive pulmonary disease) Status: Chronic Assessment & Plan: No current signs of exacerbation (8) Fibromyalgia Status: Chronic Assessment & Plan: Resume home meds when renal function permits (9) CHF (congestive heart failure) Status: Chronic Assessment & Plan: Hold home lasix for now (10) Factor V Leiden Status: Chronic Assessment & Plan: Resume home Xarelto (11) History of pulmonary embolus (PE) Status: Chronic (12) DVT prophylaxis Status: Acute Assessment & Plan: NORA García MD Jan 08, 2022 17:02
[2022-01-08] MEDS: ONDANSETRON 4 MG/2 ML (SDV) Z0FRAN IVP PRN ×2 (18:10→22:50)
[2022-01-08] MEDS: metroNIDAZOLE 500MG/100ML IVPB 100 ML IV SCH (18:10)
[2022-01-08] MEDS: fentaNYL INJ 100 MCG/2 ML AMP IVP PRN (18:12)
--- NOTE | 2022-01-08 19:03 | Consultation - Surgery ---
GINA MARTE 01/08/221902: History of Present Illness History of Present Illness Patient Consulted On(yamini/time) 01/08/22 18:54 Date Seen by Provider: Jan 08, 2022 Time Seen by Provider: 18:54 Reason for Visit: Nausea and vomiting History of Present Illness Ms. Hamilton is a 56 year old female with past medical history of COPD, asthma, Factor V Leiden, CHF, HTN, DM, and fibromyalgia. She presented to the ED with a chief complaint of profuse amounts of vomiting that started on Thursday. She describes her vomit as being like "poop" and smelling very foul. She reports a distended abdomen and pain in her RUQ and LUQ. She denies radiation of the pain. She says the pain feels like she is being hit in the stomach. It is constant. Sitting still makes it better; movement makes it worse. She has had a decreased appetite for a few days. She rates her pain as a 9/10. Allergies and Home Medications Allergies Coded Allergies: Penicillins (Verified Allergy, Unknown, 03/02/20) hydrocodone (Verified Allergy, Unknown, 12/05/19) latex (Verified Allergy, Unknown, 12/05/19) morphine (Verified Allergy, Unknown, 12/05/19) Uncoded Allergies: PLASTIC TAPE (Allergy, Mild, 12/05/19) Patient Home Medication List Albuterol Sulfate (Proair Hfa) 1 Puff Puff, 2 PUFF PO Q4H PRN for SHORTNESS OF BREATH, (Reported) Entered as Reported by: RANDA BALDWIN on 12/06/19 08 Atorvastatin Calcium (Atorvastatin Calcium) 20 Mg Tablet, 20 MG PO DAILY, (Reported) Entered as Reported by: OLESYA LEHMAN on 07/03/20 09 Calcium Carbonate (Tums X-Str) 300 Mg Tab.chew, 600 MG PO DAILY, (Reported) Entered as Reported by: OLESYA LEHMAN on 07/03/20 09 Cariprazine Hydrochloride (Vraylar) 3 Mg Capsule, 3 MG PO DAILY, (Reported) Entered as Reported by: RANDA BALDWIN on 12/06/19 0837 Cetirizine HCl (Zyrtec) 10 Mg Tablet, 10 MG PO DAILY, (Reported) Entered as Reported by: SARAH BARRY on 01/16/20 1106 Cinnamon Bark (Cinnamon) 500 Mg Capsule, 500 MG PO DAILY, (Reported) Entered as Reported by: DONALDO ARGUETA on 02/06/21 09 Clotrimazole/Betamethasone Dip (Clotrimazole-Betamethasone Crm) 15 Gm Cream..g., 15 GM TP DAILY PRN for RASH, (Reported) Entered as Reported by: OLESYA LEHMAN on 07/03/20 09 Cranberry Conc/C/Bacill Coag (Azo Cranberry Tablet) 1 Each Tablet, 1 EACH PO DAILY, (Reported) Entered as Reported by: SARAH BARRY on 01/16/20 111 Diazepam (Diazepam) 5 Mg Tablet, 5 MG PO HS, (Reported) Entered as Reported by: RANDA BALDWIN on 12/06/19 08 Estradiol (Estrace Tablet) 1 Mg Tablet, 1 MG PO HS, (Reported) Entered as Reported by: SARAH BARRY on 01/16/20 110 Fluticasone Propionate (Fluticasone Propionate) 16 Gm Slaughters.susp, 1 SPRAY NSEACH DAILY PRN for CONGESTION, (Reported) Entered as Reported by: SARAH BARRY on 01/16/20 110 Fluticasone/Vilanterol (Breo Ellipta 200-25 Mcg INH) 1 Each Blst.w.dev, 1 EACH IH UD, (Reported) Entered as Reported by: DONALDO ARGUETA on 02/06/21956 Furosemide (Furosemide) 40 Mg Tablet, 40 MG PO DAILY Prescribed by: SORAYA DE LA TORRE on 07/03/20 111 Gabapentin (Neurontin) 300 Mg Capsule, 600 MG PO TID, (Reported) Entered as Reported by: RANAD BALDWIN on 12/06/19 08 Ipratropium/Albuterol Sulfate (Iprat-Albut 0.5-3(2.5) mg/3 ml) 3 Ml Ampul.neb, 1 VIAL NEB Q6H PRN for SHORTNESS OF BREATH, (Reported) Entered as Reported by: RANDA BALDWIN on 12/06/19 08 Sylvanite Carbonate (Sylvanite Carbonate) 300 Mg Capsule, 600 MG PO HS, (Reported) Entered as Reported by: RANDA BALDWIN on 12/06/19836 Sylvanite Carbonate (Sylvanite Carbonate) 300 Mg Capsule, 300 MG PO DAILY, (Reported) Entered as Reported by: RANDA BALDWIN on 12/06/19 0837 Montelukast Sodium (Montelukast Sodium) 10 Mg Tablet, 10 MG PO HS, (Reported) Entered as Reported by: RANDA BALDWIN on 12/06/19 0837 Naloxone HCl (Narcan) 4 Mg Slaughters, 1 SPRAY NS UD PRN for OPIOID OVERDOSE, (Reported) Entered as Reported by: SARAH BARRY on 01/16/20 1106 Nitrofurantoin Macrocrystal (Nitrofurantoin) 100 Mg Capsule, 100 MG PO DAILY, (Reported) Entered as Reported by: OLESYA LEHMAN on 07/03/20 0913 Ondansetron (Ondansetron Odt) 4 Mg Tab.rapdis, 4 MG PO Q8H PRN for NAUSEA/VOMITING, (Reported) Entered as Reported by: OLESYA LEHMAN on 07/03/20 09 Pregabalin (Pregabalin) 150 Mg Capsule, 150 MG PO BID, (Reported) Entered as Reported by: RANDA BALDWIN on 12/06/19 0901 Tiotropium [place] (Spiriva) 1 Inh Aerp, 2 INH IH DAILY, (Reported) Entered as Reported by: OLESYA LEHMAN on 07/03/20 09 Tramadol HCl (Tramadol HCl) 50 Mg Tablet, 50 MG PO TID PRN for PAIN-MODERATE (5- 7) Prescribed by: GIORGIO LEONARD on 05/29/21 1150 Trazodone HCl (Trazodone HCl) 300 Mg Tablet, 300 MG PO HS PRN for INSOMNIA, (Reported) Entered as Reported by: OLESYA LEHMAN on 07/03/20 09 Past Xgpvybe-Geckpx-Yhwzme Hx Patient Social History Smoking Status: Former Smoker (quit in 1995. Smoked 19 years at 2 PPD) Former Smoker, Quit: Feb 07, 1996 Type Used: Cigarettes 2nd Hand Smoke Exposure: No Recent Hopitalizations: No Alcohol Use?: No Have you traveled recently?: No Immunizations Up To Date Date of Pneumonia Vaccine: May 06, 2019 Date of Influenza Vaccine: Apr 08, 2020 Seasonal Allergies Seasonal Allergies: No Surgeries History of Surgeries: Yes (hemorrhoidecotomy, bladder pin-up, hernia repairs x4with mesh) Surgeries: Appendectomy, Gallbladder, 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 Respiratory History of Respiratory Disorde: Yes Respiratory Disorders: Asthma, Pulmonary Embolism, COPD Cardiovascular History of Cardiac Disorders: Yes Cardiac Disorders: Deep Vein Thrombosis, Hypertension Neurological History of Neurological Disord: No 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 Genitourinary History of Genitourinary Disor: Yes Genitourinary Disorders: Kidney Stones, UTI-Chronic Gastrointestinal History of Gastrointestinal Di: Yes Gastrointestinal Disorders: Gastroesophageal Reflux, Hemorrhoids, Irritable Bowel Musculoskeletal History of Musculoskeletal Dis: Yes Musculoskeletal Disorders: Arthritis, Fibromyalgia Endocrine History of Endocrine Disorders: Yes Endocrine Disorders: Diabetes, Non-Insulin dep HEENT History of HEENT Disorders: No Cancer History of Cancer: No Psychosocial History of Psychiatric Problem: Yes Behavioral Health Disorders: Anxiety, Depression Integumentary History of Skin or Integumenta: No Blood Transfusions History of Blood Disorders: Yes (Factor 5) Adverse Reaction to a Blood Tr: No Family Medical History Significant Family History: Cancer (father from colon cancer at age 43, brother diagnosed with colon ca at 50, brother diagnosed with colon ca at 55, paternal grandfather lung and colon ca at age 74, paternal grandmother colon ca at age 34) Family Medial History: Cardiovascular disease 19 MOTHER Colon cancer 19 FATHER G8 BROTHER G8 BROTHER Diabetes mellitus 19 MOTHER G8 BROTHER Review of Systems-General Constitutional: chills, dizziness (upon standing), fever (subjective) EENTM: No blurred vision, No double vision Respiratory: cough, short of breath (reports baseline) Cardiovascular: No chest pain, No palpitations Gastrointestinal: abdominal pain (RUQ and LUQ pain); No constipation, No diarrhea; loss of appetite, nausea, vomiting Musculoskeletal: No back pain; neck pain Physical Exam-General Problems Physical Exam Vital Signs Vital Signs - First Documented 01/08/22 10:30 Temp 36.3 Pulse 118 Resp 16 B/P (MAP) 98/60 (73) Pulse Ox 95 O2 Delivery Room Air Capillary Refill : Less Than 3 Seconds General Appearance: WD/WN, no apparent distress HEENT: PERRL/EOMI; No pale conjunctivae (R), No pale conjunctivae (L) Neck: supple, normal inspection Respiratory: chest non-tender, no respiratory distress, no accessory muscle use, decreased breath sounds (Distant breath sonds) Cardiovascular: normal peripheral pulses, regular rate, rhythm, no murmur Peripheral Pulses: 2+ Dorsalis Pedis (R), 2+ Left Dors-Pedis (L), 2+ Radial Pulses (R), 2+ Radial Pulses (L) Gastrointestinal: normal bowel sounds, soft, distended (mildyly); No guarding, No rebound; tenderness (RUQ and LUQ) Extremities: non-tender, pedal edema (2+) Neurologic/Psychiatric: no motor/sensory deficits, alert, normal mood/affect, oriented x 3 Skin: normal color, warm/dry Data Review Labs Laboratory Tests 01/08/22 10:37: Urine Color YELLOW, Urine Clarity CLOUDY, Urine pH 5.5, Urine Specific [place] >=1.030, Urine Protein 1+H, Urine Glucose (UA) NEGATIVE, Urine Ketones NEGATIVE, Urine Nitrite NEGATIVE, Urine Bilirubin 2+H, Urine Urobilinogen 0.2, Urine Leukocyte Esterase TRACEH, Urine RBC (Auto) 1+H, Urine RBC NONE, Urine WBC 5-10H , Urine Squamous Epithelial Cells 25-50H, Urine Crystals NONE, Urine Bacteria MODERATEH, Urine Casts NONE, Urine Mucus NEGATIVE, Urine Culture Indicated YES 01/08/22 10:45: White Blood Count 12.6H, Red Blood Count 5.06, Hemoglobin 14.4, Hematocrit 45, Mean Corpuscular Volume 88, Mean Corpuscular Hemoglobin 29, Mean Corpuscular Hemoglobin Concent 32, Red Cell Distribution Width 14.2, Platelet Count 295, Mean Platelet Volume 10.9, Immature Granulocyte % (Auto) 0, Neutrophils (%) (Auto) 66, Lymphocytes (%) (Auto) 21, Monocytes (%) (Auto) 12, Eosinophils (%) (Auto) 1, Basophils (%) (Auto) 0, Neutrophils # (Auto) 8.3H, Lymphocytes # (Auto) 2.6, Monocytes # (Auto) 1.5H, Eosinophils # (Auto) 0.1, Basophils # (Auto) 0.0, Immature Granulocyte # (Auto) 0.1, Prothrombin Time 12.8, INR Comment 0.9, Sodium Level 135, Potassium Level 3.8, Chloride Level 95L, Carbon Dioxide Level 22, Anion Gap 18H, Blood Urea Nitrogen 48H, Creatinine 2.59H, Estimat Glomerular Filtration Rate 21, BUN/Creatinine Ratio 19, Glucose Level 153H, Calcium Level 9.2, Corrected Calcium 9.2, Magnesium Level 1.6, Total Bilirubin 0.5, Aspartate Amino Transf (AST/SGOT) 13, Alanine Aminotransferase (ALT/SGPT) 23, Alkaline Phosphatase 91, Total Protein 7.8, Albumin 4.0, Lipase 34, Influenza Type A (RT-PCR) Not Detected, Influenza Type B (RT-PCR) Not Detected, SARS-CoV-2 RNA (RT-PCR) Not Detected 01/08/22 11:45: Lactic Acid Level 3.11*H 01/08/22 15:13: Lactic Acid Level 1.70 Radiology Date of Exam:01/08/22 CT ABDOMEN/PELVIS WO CT ABDOMEN/PELVIS WO TECHNIQUE: Unenhanced CT imaging of the abdomen and pelvis was performed. 2-D reformats are created and submitted for interpretation. Automatic exposure controls were utilized to optimize patient dose. INDICATION: Right-sided abdominal pain and vomiting COMPARISON: 05/15/2021 FINDINGS: Evaluation of the abdominal viscera is suboptimal without contrast. Lower chest: Chronic atelectasis within the right lung base is unchanged. There are some centrilobular micronodules in the right middle lobe that were not included in [id number] on prior exam. Peritoneum: No free intraperitoneal air or fluid. Liver and biliary system: Diffuse hypoattenuation liver indicative of hepatic steatosis. More intense focal fatty infiltration also present along the gallbladder fossa. Cholecystectomy. No biliary duct dilatation. Spleen and Pancreas: Spleen is normal. Unenhanced pancreas is grossly normal. Adrenals: Normal. tract: No renal or ureteral calculi. No obstructive uropathy. 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. No adnexal mass. GI tract: Stomach is decompressed. There are multiple fluid-filled and mildly dilated loops of small bowel throughout the proximal mid portions. The distal small bowel loops are decompressed. In the right lower quadrant, there is a 10 to 15 cm length of wall thickening within the small bowel adjacent decompressed bowel loops, likely due to enteritis. No pericolonic inflammatory changes. Appendix is not seen. Vasculature and Lymph nodes: Normal caliber aorta. No abdominal or pelvic lymphadenopathy. Musculoskeletal: Chronic grade 2 anterolisthesis of L5 on S1 due to bilateral pars defects at L5. IMPRESSION: 1. There is a segment of acute enteritis in the right lower quadrant which results in mild proximal obstructing dilation of small bowel. This most likely due to ileus rather than mechanical obstruction. If deemed warranted, small bowel follow-through could provide additional assessment. 2. No perforation or abscess. 3. Diffuse hepatic steatosis. 4. Small region of cellular bronchiolitis in the right lung base could represent infection or aspiration. Assessment/Plan Assessment/Plan Assessment/Plan Assessment: Enteritis - RLQ a seen on CT Nausea and vomiting Possible small bowel obstruction vs. ileus - h/o extensive abdominal surgeries - monitor closely Leukocytosis KRISTIE - Bun and Cr 48 and 2.59 Plan: Continue ceftriaxone and metronidazole Anti-emetics as needed Pain control as needed Encourage ambulation and liquid diet as tolerated. Patient reported bowel movement this morning which is a positive prognostic indicator. Continue SBFT if symptoms worsen or do not improve GIORGIO LEONARD DO 01/08/220: History of Present Illness History of Present Illness Time Seen by Provider: 18:47 History of Present Illness Surgery asked to consult regarding possible Partial Small Bowel Obstruction. HPI per ED: 56-year-old female with above history coming in due to abdominal pain with nausea and vomiting. The patient was mildly tachycardic on presentat ion and blood pressure was slightly lower than her average. An IV was placed and she was given a bolus of IV fluids. She is otherwise afebrile, and I suspect she is volume depleted from the vomiting. Labs significant for slightly elevated white blood cell count and creatinine around 2.6 which is significantly more elevated than prior around 0.6. I suspect she has a prerenal cause of KRISTIE. The patient has urinated twice in the emergency department, so is still making urine which is a good thing. Urinalysis with what appears to be slightly dirty sample, but given the lower blood pressure, tachycardia, slightly elevated white blood cell count, we will treat her with antibiotics. She is allergic to penicillin with anaphylaxis, so she got ciprofloxacin. Given the significant KRISTIE, we will admit her to the hospital for further evaluation and management. When I saw pt this evening she was eating clear liquids and stated, "no nausea so far". Stated she came in because of nausea and vomiting, "I vomited up poo p". This was two days ago, she said nothing since then and had soft BM yesterday. She is hungry. Does still have some abdominal pain. Allergies and Home Medications Allergies Coded Allergies: Penicillins (Verified Allergy, Unknown, 03/02/20) hydrocodone (Verified Allergy, Unknown, 12/05/19) latex (Verified Allergy, Unknown, 12/05/19) morphine (Verified Allergy, Unknown, 12/05/19) Uncoded Allergies: PLASTIC TAPE (Allergy, Mild, 12/05/19) Patient Home Medication List Home Medication List Reviewed: Yes Albuterol Sulfate (Proair Hfa) 1 Puff Puff, 2 PUFF PO Q4H PRN for SHORTNESS OF BREATH, (Reported) Entered as Reported by: RANDA BALDWIN on 12/06/19 08 Atorvastatin Calcium (Atorvastatin Calcium) 20 Mg Tablet, 20 MG PO DAILY, (Reported) Entered as Reported by: OLESYA LEHMAN on 07/03/20 09 Calcium Carbonate (Tums X-Str) 300 Mg Tab.chew, 600 MG PO DAILY, (Reported) Entered as Reported by: OLESYA LEHMAN on 07/03/20 09 Cariprazine Hydrochloride (Vraylar) 3 Mg Capsule, 3 MG PO DAILY, (Reported) Entered as Reported by: RANDA BALDWIN on 12/06/19 08 Cetirizine HCl (Zyrtec) 10 Mg Tablet, 10 MG PO DAILY, (Reported) Entered as Reported by: SARAH BARRY on 01/16/20 110 Cinnamon Bark (Cinnamon) 500 Mg Capsule, 500 MG PO DAILY, (Reported) Entered as Reported by: DONALDO ARGUETA on 02/06/21 0957 Clotrimazole/Betamethasone Dip (Clotrimazole-Betamethasone Crm) 15 Gm Cream..g., 15 GM TP DAILY PRN for RASH, (Reported) Entered as Reported by: OLESYA LEHMNA on 07/03/20 09 Cranberry Conc/C/Bacill Coag (Azo Cranberry Tablet) 1 Each Tablet, 1 EACH PO DAILY, (Reported) Entered as Reported by: SARAH BARRY on 01/16/20 1110 Diazepam (Diazepam) 5 Mg Tablet, 5 MG PO HS, (Reported) Entered as Reported by: RANDA BALDWIN on 12/06/19 08 Estradiol (Estrace Tablet) 1 Mg Tablet, 1 MG PO HS, (Reported) Entered as Reported by: SARAH BARRY on 01/16/20 110 Fluticasone Propionate (Fluticasone Propionate) 16 Gm Slaughters.susp, 1 SPRAY NSEACH DAILY PRN for CONGESTION, (Reported) Entered as Reported by: SARAH BARRY on 01/16/20 1106 Fluticasone/Vilanterol (Breo Ellipta 200-25 Mcg INH) 1 Each Blst.w.dev, 1 EACH IH UD, (Reported) Entered as Reported by: DONALDO ARGUETA on 02/06/21 0957 Furosemide (Furosemide) 40 Mg Tablet, 40 MG PO DAILY Prescribed by: SORAYA DE LA TORRE on 07/03/20 1112 Gabapentin (Neurontin) 300 Mg Capsule, 600 MG PO TID, (Reported) Entered as Reported by: RANDA BALDWIN on 12/06/19 0837 Ipratropium/Albuterol Sulfate (Iprat-Albut 0.5-3(2.5) mg/3 ml) 3 Ml Ampul.neb, 1 VIAL NEB Q6H PRN for SHORTNESS OF BREATH, (Reported) Entered as Reported by: RANDA BALDWIN on 12/06/19 08 Sylvanite Carbonate (Sylvanite Carbonate) 300 Mg Capsule, 600 MG PO HS, (Reported) Entered as Reported by: RANDA BALDWIN on 12/06/19 08 Sylvanite Carbonate (Sylvanite Carbonate) 300 Mg Capsule, 300 MG PO DAILY, (Reported) Entered as Reported by: RANDA BALDWIN on 12/06/19 08 Montelukast Sodium (Montelukast Sodium) 10 Mg Tablet, 10 MG PO HS, (Reported) Entered as Reported by: RANDA BALDWIN on 12/06/19 08 Naloxone HCl (Narcan) 4 Mg Slaughters, 1 SPRAY NS UD PRN for OPIOID OVERDOSE, (Reported) Entered as Reported by: SARAH BARRY on 01/16/20 110 Nitrofurantoin Macrocrystal (Nitrofurantoin) 100 Mg Capsule, 100 MG PO DAILY, (Reported) Entered as Reported by: OLESYA LEHMAN on 07/03/20 09 Ondansetron (Ondansetron Odt) 4 Mg Tab.rapdis, 4 MG PO Q8H PRN for NAUSEA/VOMITING, (Reported) Entered as Reported by: OLESYA LEHMAN on 07/03/20 09 Pregabalin (Pregabalin) 150 Mg Capsule, 150 MG PO BID, (Reported) Entered as Reported by: RANDA BALDWIN on 12/06/19 0901 Tiotropium [place] (Spiriva) 1 Inh Aerp, 2 INH IH DAILY, (Reported) Entered as Reported by: OLESYA LEHMAN on 07/03/20 09 Tramadol HCl (Tramadol HCl) 50 Mg Tablet, 50 MG PO TID PRN for PAIN-MODERATE (5- 7) Prescribed by: GIORGIO LEONARD on 05/29/21 1150 Trazodone HCl (Trazodone HCl) 300 Mg Tablet, 300 MG PO HS PRN for INSOMNIA, (Reported) Entered as Reported by: OLESYA LEHMAN on 07/03/20 09 Past Sicpwqa-Llvjse-Cuejor Hx Patient Social History Smoking Status: Former Smoker (quit in 1995. Smoked 19 years at 2 PPD) Surgeries History of Surgeries: Yes Surgeries: Abdominal (multiple hernia repair, removal of retroperitoneal mass), Appendectomy, Gallbladder Respiratory History of Respiratory Disorde: Yes Respiratory Disorders: Asthma, COPD Cardiovascular History of Cardiac Disorders: Yes (CHF) Cardiac Disorders: Hypertension Neurological History of Neurological Disord: Yes (fibromyalgia) Genitourinary History of Genitourinary Disor: No Gastrointestinal History of Gastrointestinal Di: Yes Gastrointestinal Disorders: Gastroesophageal Reflux, Gall Bladder Disease Musculoskeletal History of Musculoskeletal Dis: Yes Musculoskeletal Disorders: Arthritis, Fibromyalgia HEENT History of HEENT Disorders: No Loss of Vision: Denies Hearing Impairment: Denies Cancer History of Cancer: No Psychosocial History of Psychiatric Problem: No Blood Transfusions History of Blood Disorders: Yes (Factor V deficiency) Family Medical History Significant Family History: Heart Disease, Cancer, Diabetes Family Medial History: Cardiovascular disease 19 MOTHER Colon cancer 19 FATHER G8 BROTHER G8 BROTHER Diabetes mellitus 19 MOTHER G8 BROTHER Review of Systems-General Constitutional: chills, dizziness (upon standing), fever (subjective) EENTM: No blurred vision, No double vision Respiratory: cough, short of breath (reports baseline) Cardiovascular: No chest pain, No palpitations Gastrointestinal: abdominal pain (RUQ and LUQ pain); No constipation, No diarrhea; loss of appetite, nausea, vomiting Genitourinary: No dysuria, No frequency, No hematuria Musculoskeletal: No back pain; neck pain Skin: No change in color, No change in hair/nails Psychiatric/Neurological: Anxiety, Depressed, Numbness, Paresthesia, Other (b ipolar) Physical Exam-General Problems Physical Exam General Appearance: WD/WN, mild distress Eyes: Bilateral Eye PERRL, Bilateral Eye EOMI HEENT: pharynx normal; No scleral icterus (R), No scleral icterus (L), No pale conjunctivae (R), No pale conjunctivae (L); other (poor dentition) Neck: non-tender, supple Respiratory: chest non-tender, no respiratory distress, no accessory muscle use, decreased breath sounds (Distant breath sonds) Cardiovascular: normal peripheral pulses, regular rate, rhythm Gastrointestinal: normal bowel sounds, soft, distended (mildyly); No guarding, No rebound; tenderness (RUQ and LUQ) Back: no CVA tenderness, no vertebral tenderness Extremities: non-tender, pedal edema (2+) Neurologic/Psychiatric: no motor/sensory deficits, alert, normal mood/affect, oriented x 3 Skin: normal color, warm/dry Lymphatic: no adenopathy (neck, axilla or groin) Assessment/Plan Assessment/Plan Assessment/Plan Enteritis - RLQ a seen on CT Nausea and vomiting Possible small bowel obstruction vs. ileus - h/o extensive abdominal surgeries - monitor closely Leukocytosis KRISTIE - Bun and Cr 48 and 2.59 Plan: Continue ceftriaxone and metronidazole Anti-emetics as needed Pain control as needed Encourage ambulation and liquid diet as tolerated. Patient reported bowel movement this morning which is a positive prognostic indicator. Continue SBFT if symptoms worsen or do not improve Supervisory-Addendum Brief Verification & Attestation Participated in pt care: history, MDM, physical Personally performed: exam, history, MDM, supervision of care Care discussed with: Medical Student Procedures: n/a Verification and Attestation of Medical Student E/M Service A medical student performed and documented this service. I then reviewed and verified all information documented by the medical student and made modification s to such information, when appropriate. I personally performed a physical exam, medical decision making and then discussed any differences between the notes and made revisions as necessary to create one note. Giorgio Leonard , 01/08/22 , 19:33 GINA MARTE Jan 08, 2022 19:03 GIORGIO LEONARD DO Jan 08, 2022 19:30
[2022-01-08] MEDS ORDERED: RT-ALBUTEROL SULF 2.5 MG/3 ML PRE-MIX VIAL INH PRN (19:30)
[2022-01-08] MEDS ORDERED: FLUTICASONE/VILANTEROL 200 MCG 14'S (BREO) IH SCH (19:30)
[2022-01-08 20:00] VITALS: BP 123/75
[2022-01-08] MEDS: inSUlin ASPART (NovoLOG) 1 UNIT/0.01 ML (CHARGE PER UNIT) SC SCH (21:11)
[2022-01-08] MEDS ORDERED: GABAPENTIN 300 MG (NEURONTIN) CAP PO ONE (22:00)
[2022-01-08] MEDS ORDERED: rOPINIRole 1 MG (REQUIP) TABLET PO ONE (22:00)
[2022-01-08] MEDS ORDERED: traZODone 50 MG (DESYREL) TAB PO ONE (22:00)
[2022-01-09] VITALS (7 sets, daily range): BP systolic 103–148; BP diastolic 47–97
[2022-01-09] MEDS: fentaNYL INJ 100 MCG/2 ML AMP IVP PRN ×3 (00:15→16:52)
[2022-01-09] MEDS: metroNIDAZOLE 500MG/100ML IVPB 100 ML IV SCH ×3 (02:19→16:52)
[2022-01-09] MEDS: inSUlin ASPART (NovoLOG) 1 UNIT/0.01 ML (CHARGE PER UNIT) SC SCH ×4 (05:49→20:38)
[2022-01-09] MEDS: NS IV 1000 ML 1,000 ML IV SCH ×3 (05:49→20:25)
--- NOTE | 2022-01-09 07:58 | Progress Note - Surgery ---
GINA MARTE Casey 01/09/22 0758: Subjective Date Seen by a Provider: Jan 09, 2022 Time Seen by a Provider: 07:01 Subjective/Events-last exam Ms. Hamilton is being followed for nausea, vomiting, and possible bowel obstruction. This morning she reports some abdominal pain at a 7/10. She denies having a bowel movement but she does endorse occasional flatus. She is on clear liquids and says she had been able to tolerate them well. She denies vomiting overnight but does have constant nausea. She reports she has been walking around the floor as much as she can. Review of Systems General: No Chills, No Fatigue HEENT: No Head Aches, No Visual Changes Pulmonary: No Dyspnea; Cough Cardiovascular: No: Chest Pain, Palpitations Gastrointestinal: Nausea, Abdominal Pain; No: Vomiting Neurological: No: Weakness, Confusion Focused Exam Lactate Level 01/08/22 11:45: Lactic Acid Level 3.11*H 01/08/22 15:13: Lactic Acid Level 1.70 Objective Exam Vital Signs Date Time Temp Pulse Resp B/P (MAP) Pulse Ox O2 Delivery O2 Flow Rate FiO2 01/09/22 04:00 37.0 82 16 103/50 (67) 94 Room Air 01/09/22 00:00 36.3 85 18 106/47 (66) 94 Room Air 01/08/22 20:00 Room Air 01/08/22 20:00 37.2 90 18 123/75 (91) 95 Room Air 01/08/22 16:00 37.2 93 20 107/56 (73) 94 Room Air 01/08/22 14:36 Room Air 01/08/22 14:12 36.5 95 20 93/65 (74) 93 Room Air 01/08/22 12:43 97 16 119/76 95 Room Air 01/08/22 10:30 36.3 118 16 98/60 (73) 95 Room Air I & O 01/09/22 07:00 Intake Total 5000 ml Output Total 2625 ml Balance 2375 ml Capillary Refill : Less Than 3 Seconds General Appearance: No Apparent Distress, WD/WN HEENT: PERRL/EOMI; No Scleral Icterus (L), No Scleral Icterus (R) Neck: Non Tender, Supple Respiratory: Chest Non Tender, Lungs Clear, Normal Breath Sounds, No Accessory Muscle Use, No Respiratory Distress Cardiovascular: Regular Rate, Rhythm, No Murmur, Normal Peripheral Pulses Peripheral Pulses: 2+ Dorsalis Pedis (R), 2+ Left Dors-Pedis (L), 2+ Radial Pulses (R), 2+ Radial Pulses (L) Gastrointestinal: normal bowel sounds; No soft; distended (Mild); No guarding, No rebound; tenderness (Diffuse) Extremity: Non Tender, No Pedal Edema Neurologic/Psychiatric: Alert, Oriented x3, No Motor/Sensory Deficits, Normal Mood/Affect Skin: Normal Color, Warm/Dry Results Lab Laboratory Tests 01/08/22 10:37: Urine Color YELLOW, Urine Clarity CLOUDY, Urine pH 5.5, Urine Specific Mckinney >=1.030, Urine Protein 1+H, Urine Glucose (UA) NEGATIVE, Urine Ketones NEGATIVE, Urine Nitrite NEGATIVE, Urine Bilirubin 2+H, Urine Urobilinogen 0.2, Urine Leukocyte Esterase TRACEH, Urine RBC (Auto) 1+H, Urine RBC NONE, Urine WBC 5-10H , Urine Squamous Epithelial Cells 25-50H, Urine Crystals NONE, Urine Bacteria MODERATEH, Urine Casts NONE, Urine Mucus NEGATIVE, Urine Culture Indicated YES 01/08/22 10:45: White Blood Count 12.6H, Red Blood Count 5.06, Hemoglobin 14.4, Hematocrit 45, Mean Corpuscular Volume 88, Mean Corpuscular Hemoglobin 29, Mean Corpuscular Hemoglobin Concent 32, Red Cell Distribution Width 14.2, Platelet Count 295, Mean Platelet Volume 10.9, Immature Granulocyte % (Auto) 0, Neutrophils (%) (Auto) 66, Lymphocytes (%) (Auto) 21, Monocytes (%) (Auto) 12, Eosinophils (%) (Auto) 1, Basophils (%) (Auto) 0, Neutrophils # (Auto) 8.3H, Lymphocytes # (Auto) 2.6, Monocytes # (Auto) 1.5H, Eosinophils # (Auto) 0.1, Basophils # (Auto) 0.0, Immature Granulocyte # (Auto) 0.1, Prothrombin Time 12.8, INR Comment 0.9, Sodium Level 135, Potassium Level 3.8, Chloride Level 95L, Carbon Dioxide Level 22, Anion Gap 18H, Blood Urea Nitrogen 48H, Creatinine 2.59H, Estimat Glomerular Filtration Rate 21, BUN/Creatinine Ratio 19, Glucose Level 153H, Calcium Level 9.2, Corrected Calcium 9.2, Magnesium Level 1.6, Total Bilirubin 0.5, Aspartate Amino Transf (AST/SGOT) 13, Alanine Aminotransferase (A LT/SGPT) 23, Alkaline Phosphatase 91, Total Protein 7.8, Albumin 4.0, Lipase 34, Influenza Type A (RT-PCR) Not Detected, Influenza Type B (RT-PCR) Not Detected, SARS-CoV-2 RNA (RT-PCR) Not Detected 01/08/22 11:45: Lactic Acid Level 3.11*H 01/08/22 15:13: Lactic Acid Level 1.70 01/08/22 21:04: Glucometer 103 01/09/22 05:36: Glucometer 90 Assessment/Plan Assessment/Plan Assessment/Plan Enteritis RLQ as seen on CT Nausea and vomiting Possible small bowel obstruction vs. ileus h/o extensive abdominal surgeries monitor closely flatus but no bowel movements Leukocytosis KRISTIE Bun and Cr 48 and 2.59 Plan: Continue ceftriaxone and metronidazole Anti-emetics as needed Pain control as needed Encourage ambulation and liquid diet as tolerated. Flatus but no bowel movements overnight Consider SBFT if symptoms worsen or do not improve. At this point I think maintain a conservative approach with clears and reassess for possibility of SBFT tomorrow. GIORGIO GARCIA DO 01/09/22 1734: Subjective Time Seen by a Provider: 10:16 Subjective/Events-last exam Pt seen and examined, sitting up in chair. States she feels about the same as yesterday, in relation to abdominal pain. +Flatus, but still with nausea. Review of Systems HEENT: No Head Aches, No Visual Changes Pulmonary: No Dyspnea; Cough Cardiovascular: No: Chest Pain, Palpitations Gastrointestinal: Nausea, Abdominal Pain; No: Vomiting Objective Exam General Appearance: No Apparent Distress, WD/WN HEENT: PERRL/EOMI Respiratory: Chest Non Tender, Lungs Clear, Normal Breath Sounds, No Accessory Muscle Use, No Respiratory Distress Cardiovascular: Regular Rate, Rhythm, No Murmur Gastrointestinal: normal bowel sounds; No soft; distended (Mild); No guarding, No rebound; tenderness (Diffuse) Assessment/Plan Assessment/Plan Assessment/Plan Enteritis RLQ as seen on CT Nausea and vomiting Possible small bowel obstruction vs. ileus h/o extensive abdominal surgeries monitor closely flatus but no bowel movements Leukocytosis KRISTIE Bun and Cr 48 and 2.59 Plan: Continue ceftriaxone and metronidazole, Anti-emetics as needed, Pain control as needed Encourage ambulation and will try her on soft diet as tolerated. Flatus but no bowel movements overnight May need to consider SBFT if symptoms worsen or do not improve. At this point will continue with conservative approach and reassess for tomorrow. Supervisory-Addendum Brief Verification & Attestation Participated in pt care: history, MDM, physical Personally performed: exam, history, MDM, supervision of care Care discussed with: Medical Student Procedures: n/a Verification and Attestation of Medical Student E/M Service A medical student performed and documented this service. I then reviewed and verified all information documented by the medical student and made modifications to such information, when appropriate. I personally performed a physical exam, medical decision making and then discussed any differences between the notes and made revisions as necessary to create one note. Giorgio Garcia , 01/09/22 , 17:34 GINA MARTE Jan 09, 2022 07:58 GIORGIO GARCIA DO Jan 09, 2022 17:34
[2022-01-09] MEDS: ONDANSETRON 4 MG/2 ML (SDV) Z0FRAN IVP PRN ×2 (08:49→20:25)
[2022-01-09 08:58] LABS: HEMATOCRIT 40 % (35-52); HEMOGLOBIN 11.9 g/dL (11.5-16.0); MEAN CORPUSCULAR HEMOGLOBIN 29 pg (25-34); MEAN CORPUSCULAR HGB CONC 30 g/dL (32-36); MEAN CORPUSCULAR VOLUME 97 fL (80-99); PLATELET COUNT 268 10^3/uL (130-400)
[2022-01-09 09:14] LABS: ALBUMIN 3.2 GM/DL (3.2-4.5); BILIRUBIN,TOTAL 0.3 MG/DL (0.1-1.0); CALCIUM 8.2 MG/DL (8.5-10.1); CREATININE SERUM 0.75 MG/DL (0.60-1.30); POTASSIUM 3.3 MMOL/L (3.6-5.0)
[2022-01-09] MEDS ORDERED: BISACODYL 10 MG SUPP (DULCOLAX) PR PRN (11:00)
[2022-01-09] MEDS: cefTRIAXone 1 GM PRE-MIX 50 ML IV SCH (12:14)
[2022-01-09] MEDS: ACETAMINOPHEN 500 MG TAB (TYLENOL) PO PRN (13:21)
[2022-01-09] MEDS ORDERED: METF-399 PO ×2 (14:47)
[2022-01-09] MEDS ORDERED: ATOR10TA66 PO (14:47)
[2022-01-09] MEDS ORDERED: GABA800T10 PO (14:47)
[2022-01-09] MEDS ORDERED: OXYC1TAB11 PO (14:47)
[2022-01-09] MEDS ORDERED: LISI10TA25 PO (14:47)
[2022-01-09] MEDS ORDERED: UBRO100T PO (14:47)
[2022-01-09] MEDS ORDERED: TRAM50TA3 PO (14:47)
[2022-01-09] MEDS ORDERED: FERR325T18 PO (14:47)
[2022-01-09] MEDS ORDERED: FURO40TA4 PO (14:47)
[2022-01-09] MEDS ORDERED: TRAZ-227 PO (14:47)
[2022-01-09] MEDS ORDERED: TIOT18CA2 IH (14:47)
[2022-01-09] MEDS ORDERED: BUDE10.2 IH (14:47)
[2022-01-09] MEDS ORDERED: IPRA3AMP31 IH (14:47)
[2022-01-09] MEDS ORDERED: SEMA0.25 SQ (14:47)
[2022-01-09] MEDS ORDERED: RIVA20TA PO (14:47)
[2022-01-09] MEDS ORDERED: ROPI3TAB4 PO (14:47)
[2022-01-09] MEDS ORDERED: DOCU-26 PO (14:49)
[2022-01-09] MEDS ORDERED: CALC-823 PO (14:49)
[2022-01-09] MEDS ORDERED: L.AC1CAP6 PO (14:49)
[2022-01-09] MEDS ORDERED: POTA-51 PO (14:53)
[2022-01-09] MEDS: RIVAROXABAN 20 MG TABLET (XARELTO) PO SCH (16:51)
--- NOTE | 2022-01-09 17:03 | Progress Note ---
Subjective Subjective/Events-last exam Pt seen at 1055, had just attempted to have BM without success. Is passing gas, feels a little less distended, no vomiting and is tolerating clears. Requesting laxative. Focused Exam Lactate Level 01/08/22 11:45: Lactic Acid Level 3.11*H 01/08/22 15:13: Lactic Acid Level 1.70 Objective Exam Last Set of Vital Signs Vital Signs Date Time Temp Pulse Resp B/P (MAP) Pulse Ox O2 Delivery O2 Flow Rate FiO2 01/09/22 15:38 36.2 89 20 126/97 (107) 95 Room Air Capillary Refill : Less Than 3 Seconds I&O Intake and Output 01/09/22 00:00 Intake Total 5850 ml Output Total 1700 ml Balance 4150 ml Intake Oral 2500 ml IV Total 3350 ml Output Urine Total 1700 ml Daily Weight Change No General: Alert, No Acute Distress Lungs: Clear to Auscultation, Normal Air Movement Heart: Regular Rate, No Murmurs Abdomen: Normal Bowel Sounds, Other (distended, diffusely mild ttp) Psych/Mental Status: Mood NL Results/Procedures Lab Laboratory Tests 01/08/22 21:04: Glucometer 103 01/09/22 05:36: Glucometer 90 01/09/22 08:47: White Blood Count 7.0, Red Blood Count 4.13, Hemoglobin 11.9, Hematocrit 40, Mean Corpuscular Volume 97, Mean Corpuscular Hemoglobin 29, Mean Corpuscular Hemoglobin Concent 30L, Red Cell Distribution Width 14.0, Platelet Count 268, Mean Platelet Volume 9.0, Sodium Level 143, Potassium Level 3.3L, Chloride Level 110#H, Carbon Dioxide Level 19L, Anion Gap 14, Blood Urea Nitrogen 13, Creatinine 0.75, Estimat Glomerular Filtration Rate 93, BUN/Creatinine Ratio 17, Glucose Level 121H, Calcium Level 8.2L, Corrected Calcium 8.8, Total Bilirubin 0.3, Aspartate Amino Transf (AST/SGOT) 22, Alanine Aminotransferase (ALT/SGPT) 2 5, Alkaline Phosphatase 63, Total Protein 6.0L, Albumin 3.2 01/09/22 11:17: Glucometer 98 01/09/22 15:19: Glucometer 97 Microbiology 01/08/22 Blood Culture - Preliminary, Resulted No growth 7/6/22 Urine Culture - Preliminary, Resulted Enterobacter cloacae complex Radiology Assessment/Plan Assessment/Plan (1) Enteritis Status: Acute Assessment & Plan: Flagyl and ceftriaxone, day 2 (2) Ileus Status: Acute Assessment & Plan: Passing stool yesterday, clear liquid with caution. Surgery consulted, appreciate recommendations. 01/09 no stool but improved distension, tolerating liquids. Try suppository. (3) Vomiting Status: Resolved Assessment & Plan: Ondansetron, IV hydration (4) Hypotension due to hypovolemia Status: Resolved Assessment & Plan: Improved after 2 liters bolus in ER, continue NS @ 150 mls/hr (5) KRISTIE (acute kidney injury) Status: Resolved Assessment & Plan: Secondary to hypovolemia, continue IVF and monitor (6) Diabetes mellitus, type 2 Status: Chronic Assessment & Plan: Sliding scale insulin (7) COPD (chronic obstructive pulmonary disease) Status: Chronic Assessment & Plan: No current signs of exacerbation (8) Fibromyalgia Status: Chronic Assessment & Plan: Resume home meds when renal function permits (9) CHF (congestive heart failure) Status: Chronic Assessment & Plan: Hold home lasix for now (10) Factor V Leiden Status: Chronic Assessment & Plan: Resume home Xarelto (11) History of pulmonary embolus (PE) Status: Chronic (12) DVT prophylaxis Status: Acute Assessment & Plan: NORA García MD Jan 09, 2022 17:03
[2022-01-09] MEDS: RT--FLUTICASONE/SALMETEROL 232-14 (AIRDUO RespiCLICK) IH SCH ×2 (17:41→23:40)
[2022-01-09] MEDS: POTASSIUM CL 10MEQ/50ML IVPB 50 ML IV SCH ×3 (17:59→21:41)
[2022-01-09] MEDS: DIAZEPAM 5 MG (VALIUM) TABLET PO SCH (20:23)
[2022-01-09] MEDS: LORATADINE (CLARITIN) 10 MG TAB PO SCH (20:23)
[2022-01-09] MEDS: GABAPENTIN 400 MG (NEURONTIN) CAP PO SCH (20:23)
[2022-01-09] MEDS: MICONAZOLE 2% POWDER (DESENEX AF) 90 GM TOP SCH (20:24)
[2022-01-09] MEDS ORDERED: LITHIUM CARBONATE 300 MG TABLET PO SCH (21:00)
[2022-01-09] MEDS ORDERED: LITHIUM CARBONATE 150 MG CAP PO SCH (21:00)
[2022-01-09] MEDS ORDERED: NON-FORMULARY MEDICATION 1 EA EA (Cariprazine Hydrochloride (Vraylar) 3 MG) PO SCH (21:00)
[2022-01-09] MEDS ORDERED: CETIRIZINE HCL (ZYRTEC) 10 MG TAB PO SCH (21:00)
[2022-01-09] MEDS ORDERED: NON-FORMULARY MEDICATION 1 EA EA (Gabapentin 800 MG) PO SCH (21:00)
[2022-01-09] MEDS ORDERED: NON-FORMULARY MEDICATION 1 EA EA (Ropinirole HCl 3 MG) PO SCH (22:00)
[2022-01-09] MEDS: rOPINIRole 1 MG (REQUIP) TABLET PO SCH (22:11)
[2022-01-09] MEDS: traZODone 100 MG (DESYREL) TAB PO PRN (22:11)
[2022-01-10] MEDS: POTASSIUM CL 10MEQ/50ML IVPB 50 ML IV SCH (00:38)
[2022-01-10] MEDS: metroNIDAZOLE 500MG/100ML IVPB 100 ML IV SCH ×3 (03:05→17:00)
[2022-01-10] MEDS: ONDANSETRON 4 MG/2 ML (SDV) Z0FRAN IVP PRN ×2 (03:14→12:45)
[2022-01-10 03:54] VITALS: BP 112/70
[2022-01-10] MEDS: inSUlin ASPART (NovoLOG) 1 UNIT/0.01 ML (CHARGE PER UNIT) SC SCH ×4 (05:40→20:48)
[2022-01-10] MEDS: NS IV 1000 ML 1,000 ML IV SCH (07:16)
[2022-01-10 07:18] LABS: HEMATOCRIT 35 % (35-52); HEMOGLOBIN 10.7 g/dL (11.5-16.0); MEAN CORPUSCULAR HEMOGLOBIN 29 pg (25-34); MEAN CORPUSCULAR HGB CONC 31 g/dL (32-36); MEAN CORPUSCULAR VOLUME 94 fL (80-99); MEAN PLATELET VOLUME 9.2 fL (9.0-12.2); PLATELET COUNT 254 10^3/uL (130-400); WHITE BLOOD COUNT 5.6 10^3/uL (4.3-11.0)
[2022-01-10 07:28] LABS: BILIRUBIN,TOTAL 0.2 MG/DL (0.1-1.0); CREATININE SERUM 0.63 MG/DL (0.60-1.30); POTASSIUM 3.7 MMOL/L (3.6-5.0); TOTAL PROTEIN 5.5 GM/DL (6.4-8.2)
[2022-01-10 07:35] VITALS: BP 141/84
[2022-01-10] MEDS: RT--FLUTICASONE/SALMETEROL 232-14 (AIRDUO RespiCLICK) IH SCH ×2 (07:40→20:57)
[2022-01-10] MEDS: UMECLIDINIUM BROMIDE (INCRUSE ELLIPTA) 7'S IH SCH (07:40)
--- NOTE | 2022-01-10 08:35 | Progress Note - Surgery ---
GINA MARTE Casey 01/10/22 0835: Subjective Date Seen by a Provider: Jan 10, 2022 Time Seen by a Provider: 07:36 Subjective/Events-last exam Ms. Hamilton is being followed for nausea, vomiting, and possible bowel obstruction. This morning she reports consistent LUQ and RUQ abdominal pain at a 7/10. She denies having a bowel movement but she does endorse occasional flatus. She has a lot of questions about the next steps in her care. She was curious if she could have a colonoscopy during this visit so I educated her why that might not work well. Review of Systems General: No Chills, No Fatigue HEENT: No Head Aches, No Visual Changes Pulmonary: No Dyspnea, No Cough Cardiovascular: No: Chest Pain, Palpitations Gastrointestinal: Nausea, Abdominal Pain; No: Vomiting Neurological: No: Weakness, Confusion Focused Exam Lactate Level 01/08/22 11:45: Lactic Acid Level 3.11*H 01/08/22 15:13: Lactic Acid Level 1.70 Objective Exam Vital Signs Date Time Temp Pulse Resp B/P (MAP) Pulse Ox O2 Delivery O2 Flow Rate FiO2 01/10/22 07:35 36.4 72 18 141/84 (103) 96 Room Air 01/10/22 07:19 94 Room Air 01/10/22 03:54 36.4 77 18 112/70 (84) 94 Room Air 01/09/22 23:55 36.6 77 16 148/78 (101) 96 Room Air 01/09/22 23:41 95 21 01/09/22 20:00 96 Room Air 01/09/22 19:40 37.1 81 20 140/86 (104) 96 Room Air 01/09/22 15:38 36.2 89 20 126/97 (107) 95 Room Air 01/09/22 11:20 36.3 75 20 128/80 (96) 94 Room Air I & O 01/10/22 07:00 Intake Total 2590 ml Output Total 3750 ml Balance -1160 ml Capillary Refill : Less Than 3 Seconds General Appearance: No Apparent Distress, WD/WN HEENT: PERRL/EOMI; No Scleral Icterus (L), No Scleral Icterus (R) Neck: Non Tender, Supple Respiratory: Chest Non Tender, Lungs Clear, Normal Breath Sounds, No Accessory Muscle Use, No Respiratory Distress Cardiovascular: Regular Rate, Rhythm, No Murmur, Normal Peripheral Pulses Peripheral Pulses: 2+ Dorsalis Pedis (R), 2+ Left Dors-Pedis (L), 2+ Radial Pulses (R), 2+ Radial Pulses (L) Gastrointestinal: normal bowel sounds; No soft; distended (Mild); No guarding, No rebound; tenderness (Mostly RUQ and LUQ pain) Extremity: Non Tender, No Pedal Edema Neurologic/Psychiatric: Alert, Oriented x3, No Motor/Sensory Deficits, Normal Mood/Affect Skin: Normal Color, Warm/Dry Results Lab Laboratory Tests 01/09/22 08:47: White Blood Count 7.0, Red Blood Count 4.13, Hemoglobin 11.9, Hematocrit 40, Mean Corpuscular Volume 97, Mean Corpuscular Hemoglobin 29, Mean Corpuscular Hemoglobin Concent 30L, Red Cell Distribution Width 14.0, Platelet Count 268, Mean Platelet Volume 9.0, Sodium Level 143, Potassium Level 3.3L, Chloride Level 110#H, Carbon Dioxide Level 19L, Anion Gap 14, Blood Urea Nitrogen 13, Creatinine 0.75, Estimat Glomerular Filtration Rate 93, BUN/Creatinine Ratio 17, Glucose Level 121H, Calcium Level 8.2L, Corrected Calcium 8.8, Total Bilirubin 0.3, Aspartate Amino Transf (AST/SGOT) 22, Alanine Aminotransferase (ALT/SGPT) 25, Alkaline Phosphatase 63, Total Protein 6.0L, Albumin 3.2 01/09/22 11:17: Glucometer 98 01/09/22 15:19: Glucometer 97 01/09/22 20:03: Glucometer 91 01/10/22 05:37: Glucometer 91 01/10/22 05:48: Sodium Level 145, Potassium Level 3.7, Chloride Level 114H, Carbon Dioxide Level 17L, Anion Gap 14, Blood Urea Nitrogen 5L, Creatinine 0.63, Estimat Glomerular Filtration Rate 103, BUN/Creatinine Ratio 8, Glucose Level 78, Calcium Level 8.0L, Corrected Calcium 8.8, Total Bilirubin 0.2, Aspartate Amino Transf (AST/SGOT) 20, Alanine Aminotransferase (ALT/SGPT) 26, Alkaline Phosphatase 56, Total Protein 5.5L, Albumin 3.0L 01/10/22 07:11: White Blood Count 5.6, Red Blood Count 3.70L, Hemoglobin 10.7L, Hematocrit 35, Mean Corpuscular Volume 94, Mean Corpuscular Hemoglobin 29, Mean Corpuscular Hemoglobin Concent 31L, Red Cell Distribution Width 13.7, Platelet Count 254, Mean Platelet Volume 9.2 Microbiology 01/08/22 Blood Culture - Preliminary, Resulted No growth 01/08/22 Urine Culture - Preliminary, Resulted Enterobacter cloacae complex Assessment/Plan Assessment/Plan Assessment/Plan Enteritis RLQ as seen on CT Nausea and vomiting Possible small bowel obstruction vs. ileus h/o extensive abdominal surgeries monitor closely flatus but no bowel movements Leukocytosis KRISTIE BUN and Cr normalized Plan: Continue ceftriaxone and metronidazole, Anti-emetics as needed, Pain control as needed Encourage ambulation and will try her on soft diet as tolerated. Flatus but no bowel movements overnight. Consider SBFT today. I think it is best to get results of SBFT and continue with conservative approach before making any surgical decisions GIORGIO GARCIA DO 01/10/22 1036: Subjective Time Seen by a Provider: 08:55 Subjective/Events-last exam Pt seen and examined, states she still hasn't had a BM and pain is about the same. Review of Systems General: No Chills Pulmonary: No Dyspnea, No Cough Cardiovascular: No: Chest Pain, Palpitations Gastrointestinal: Nausea, Abdominal Pain; No: Vomiting Objective Exam General Appearance: No Apparent Distress, Obese HEENT: PERRL/EOMI Respiratory: Lungs Clear, Normal Breath Sounds, No Accessory Muscle Use, No Respiratory Distress Cardiovascular: Regular Rate, Rhythm, No Murmur Gastrointestinal: distended (Mild); No guarding, No rebound; tenderness (Mostly RUQ and LUQ pain) Assessment/Plan Assessment/Plan Assessment/Plan Enteritis RLQ as seen on CT Nausea and vomiting Possible small bowel obstruction vs. ileus h/o extensive abdominal surgeries monitor closely flatus but no bowel movements Leukocytosis KRISTIE BUN and Cr normalized Plan: Continue ceftriaxone and metronidazole, Anti-emetics as needed, Pain control as needed Encourage ambulation, would go back to liquids and will order a Dulcolax suppository. Flatus but no bowel movements overnight. Consider SBFT will see if suppository works first and continue with conservative approach before making any surgical decisions Supervisory-Addendum Brief Verification & Attestation Participated in pt care: history, MDM, physical Personally performed: exam, history, MDM, supervision of care Care discussed with: Medical Student Procedures: n/a Verification and Attestation of Medical Student E/M Service A medical student performed and documented this service. I then reviewed and verified all information documented by the medical student and made modifications to such information, when appropriate. I personally performed a physical exam, medical decision making and then discussed any differences b etween the notes and made revisions as necessary to create one note. Giorgio Garcia , 01/10/22 , 10:35 GINA MARTE Jan 10, 2022 08:35 GIORGIO GARCIA DO Jan 10, 2022 10:36
[2022-01-10] MEDS: GABAPENTIN 400 MG (NEURONTIN) CAP PO SCH ×3 (08:42→20:51)
[2022-01-10] MEDS: DIAZEPAM 5 MG (VALIUM) TABLET PO SCH ×2 (08:42→20:51)
[2022-01-10] MEDS: MICONAZOLE 2% POWDER (DESENEX AF) 90 GM TOP SCH ×2 (08:43→20:51)
[2022-01-10] MEDS: MONTELUKAST 10 MG (SINGULAIR) TAB PO SCH (08:43)
[2022-01-10] MEDS: AtorvaSTATin TABLET 10 MG TABLET PO SCH (08:43)
[2022-01-10] MEDS: ACETAMINOPHEN 500 MG TAB (TYLENOL) PO PRN (08:56)
[2022-01-10] MEDS: LITHIUM CARBONATE 300 MG TABLET PO SCH ×2 (08:56→20:51)
[2022-01-10 11:02] VITALS: BP 135/82
[2022-01-10] MEDS: oxyCODONE/APAP 5/325MG (PERCOCET 5) TABLET PO PRN ×2 (11:06→20:51)
[2022-01-10] MEDS: cefTRIAXone 1 GM PRE-MIX 50 ML IV SCH (12:45)
--- NOTE | 2022-01-10 13:33 | Progress Note ---
Subjective Subjective/Events-last exam Pt states she had a small BM today, is still having pain but it is a little less than yesterday. No vomiting, tolerating clears still. Focused Exam Lactate Level 01/08/22 11:45: Lactic Acid Level 3.11*H 01/08/22 15:13: Lactic Acid Level 1.70 Objective Exam Last Set of Vital Signs Vital Signs Date Time Temp Pulse Resp B/P (MAP) Pulse Ox O2 Delivery O2 Flow Rate FiO2 01/10/22 11:02 36.6 81 18 135/82 (99) 96 Room Air 01/09/22 23:41 21 Capillary Refill : Less Than 3 Seconds I&O Intake and Output 01/10/22 00:00 Intake Total 3590 ml Output Total 3375 ml Balance 215 ml Intake Oral 1240 ml IV Total 2350 ml Output Urine Total 3375 ml General: Alert, No Acute Distress Lungs: Clear to Auscultation, Normal Air Movement Heart: Regular Rate, No Murmurs Abdomen: Normal Bowel Sounds, Other (distended, decreased from yesterday, mild diffuse ttp) Neuro: Normal Gait, Normal Speech Psych/Mental Status: Mood NL Results/Procedures Lab Laboratory Tests 01/09/22 15:19: Glucometer 97 01/09/22 20:03: Glucometer 91 01/10/22 05:37: Glucometer 91 01/10/22 05:48: Sodium Level 145, Potassium Level 3.7, Chloride Level 114H, Carbon Dioxide Level 17L, Anion Gap 14, Blood Urea Nitrogen 5L, Creatinine 0.63, Estimat Glomerular Filtration Rate 103, BUN/Creatinine Ratio 8, Glucose Level 78, Calcium Level 8.0L, Corrected Calcium 8.8, Total Bilirubin 0.2, Aspartate Amino Transf (AST/SGOT) 20, Alanine Aminotransferase (ALT/SGPT) 26, Alkaline Phosphatase 56, Total Protein 5.5L, Albumin 3.0L 01/10/22 07:11: White Blood Count 5.6, Red Blood Count 3.70L, Hemoglobin 10.7L, Hematocrit 35, Mean Corpuscular Volume 94, Mean Corpuscular Hemoglobin 29, Mean Corpuscular Hemoglobin Concent 31L, Red Cell Distribution Width 13.7, Platelet Count 254, Mean Platelet Volume 9.2 01/10/22 10:59: Glucometer 109 Microbiology 01/08/22 Blood Culture - Preliminary, Resulted No growth 01/08/22 Urine Culture - Final, Complete Enterobacter cloacae complex Radiology Assessment/Plan Assessment/Plan (1) Enteritis Status: Acute Assessment & Plan: Flagyl and ceftriaxone, day 3. (2) Ileus Status: Acute Assessment & Plan: Passing stool yesterday, clear liquid with caution. Surgery consulted, appreciate recommendations. 01/09 no stool but improved distension, tolerating liquids. Try suppository. (3) Vomiting Status: Resolved Assessment & Plan: Ondansetron, IV hydration (4) Hypotension due to hypovolemia Status: Resolved Assessment & Plan: Improved after 2 liters bolus in ER, continue NS @ 150 mls/hr 01/10 she is drinking quite well, will saline lock IV as she is walking quite a bit as well. (5) KRISTIE (acute kidney injury) Status: Resolved Assessment & Plan: Secondary to hypovolemia, continue IVF and monitor (6) Diabetes mellitus, type 2 Status: Chronic Assessment & Plan: Sliding scale insulin (7) COPD (chronic obstructive pulmonary disease) Status: Chronic Assessment & Plan: No current signs of exacerbation (8) Fibromyalgia Status: Chronic Assessment & Plan: Resume home meds when renal function permits (9) CHF (congestive heart failure) Status: Chronic Assessment & Plan: Hold home lasix for now (10) Factor V Leiden Status: Chronic Assessment & Plan: Resume home Xarelto (11) History of pulmonary embolus (PE) Status: Chronic (12) DVT prophylaxis Status: Acute Assessment & Plan: NORA García MD Jan 10, 2022 13:33
[2022-01-10 16:18] VITALS: BP 126/84
[2022-01-10] MEDS: RIVAROXABAN 20 MG TABLET (XARELTO) PO SCH (16:51)
[2022-01-10 20:40] VITALS: BP 124/72
[2022-01-10] MEDS: rOPINIRole 1 MG (REQUIP) TABLET PO SCH (20:51)
[2022-01-10] MEDS: LORATADINE (CLARITIN) 10 MG TAB PO SCH (20:51)
[2022-01-10] MEDS: traZODone 100 MG (DESYREL) TAB PO PRN (20:51)
[2022-01-11 00:03] VITALS: BP 117/74
[2022-01-11] MEDS: metroNIDAZOLE 500MG/100ML IVPB 100 ML IV SCH (01:29)
[2022-01-11 03:43] VITALS: BP 107/74
[2022-01-11] MEDS: inSUlin ASPART (NovoLOG) 1 UNIT/0.01 ML (CHARGE PER UNIT) SC SCH ×2 (06:08→11:25)
[2022-01-11 06:14] LABS: POTASSIUM 3.5 MMOL/L (3.6-5.0)
[2022-01-11 06:15] LABS: CALCIUM 8.3 MG/DL (8.5-10.1)
[2022-01-11 06:20] LABS: CREATININE SERUM 0.67 MG/DL (0.60-1.30)
[2022-01-11 06:22] LABS: MAGNESIUM 1.6 MG/DL (1.6-2.4)
[2022-01-11] MEDS: oxyCODONE/APAP 5/325MG (PERCOCET 5) TABLET PO PRN (07:47)
[2022-01-11 08:08] VITALS: BP 131/84
[2022-01-11] MEDS: RT--FLUTICASONE/SALMETEROL 232-14 (AIRDUO RespiCLICK) IH SCH (08:28)
[2022-01-11] MEDS: UMECLIDINIUM BROMIDE (INCRUSE ELLIPTA) 7'S IH SCH (08:28)
[2022-01-11] MEDS: AtorvaSTATin TABLET 10 MG TABLET PO SCH (08:36)
[2022-01-11] MEDS: GABAPENTIN 400 MG (NEURONTIN) CAP PO SCH ×2 (08:36→12:38)
[2022-01-11] MEDS: DIAZEPAM 5 MG (VALIUM) TABLET PO SCH (08:36)
[2022-01-11] MEDS: MONTELUKAST 10 MG (SINGULAIR) TAB PO SCH (08:36)
[2022-01-11] MEDS: LITHIUM CARBONATE 300 MG TABLET PO SCH (08:36)
[2022-01-11] MEDS: MICONAZOLE 2% POWDER (DESENEX AF) 90 GM TOP SCH (08:37)
[2022-01-11] MEDS ORDERED: ONDANSETRON 4 MG (ZOFRAN) ORAL DISSOLVE TAB PO PRN (09:15)
[2022-01-11] MEDS ORDERED: metroNIDAZOLE 500 MG (FLAGYL) TAB PO ONE (09:15)
[2022-01-11] MEDS: cefTRIAXone 1 GM PRE-MIX 50 ML IV SCH (10:33)
--- NOTE | 2022-01-11 10:45 | Discharge Summary ---
Diagnosis/Chief Complaint Date of Admission Jan 08, 2022 at 13:35 Date of Discharge Discharge Date: Jan 11, 2022 Primary Care Center/[facility] Discharge Summary Discharge Physical Exam Allergies: Coded Allergies: Penicillins (Verified Allergy, Unknown, 03/02/20) hydrocodone (Verified Allergy, Unknown, 12/05/19) latex (Verified Allergy, Unknown, 12/05/19) morphine (Verified Allergy, Unknown, 12/05/19) Uncoded Allergies: PLASTIC TAPE (Allergy, Mild, 12/05/19) Vitals & I&Os Vital Signs Date Time Temp Pulse Resp B/P (MAP) Pulse Ox O2 Delivery O2 Flow Rate FiO2 01/11/22 08:34 Room Air 0.00 01/11/22 08:28 97 01/11/22 08:08 36.8 64 20 131/84 (100) 01/09/22 23:41 21 General Appearance: No Apparent Distress Respiratory: Chest Non Tender, Lungs Clear, Normal Breath Sounds, No Accessory Muscle Use, No Respiratory Distress Cardiovascular: Regular Rate, Rhythm, No Murmur Gastrointestinal: Normal Bowel Sounds, No Organomegaly, No Pulsatile Mass, Non Tender, Soft Hospital Course Was the Problem List Reviewed?: Yes 56 yo female presented to ER due to vomiting that started 4 days ago. She has had some mucus and some dark green, hasn't been able to eat in 4 days. Last 2 days hasn't kept down meds. Urine is dark yellow to brown. Has epigastric pain and lower back pain. Had a soft bowel movement today and 2 days ago. She tried ondansetron on day 1 which helped, but the next 2 days did not. Ondansetron in ER today was helpful.Her BUN and creatinine on admission were 40 and 2.59 respectively. With IV fluids there was a rapid return to normal and on discharge her BUN was 4 with a creatinine of .67. She had return of normal appetite and bowel function. The only nausea that she was having was after what sounds like binge eating she requested Zofran on the day of her discharge and wanted another plate of food. Discussed that her nausea was from overeating and to attempt portion control. There is a small possibility that ropinirole may be aggravating binge eating disorder however she appears to have significant restless leg syndrome her reason for the ropinirole. She was advised to discuss this with her primary care provider. There were no medication changes on disc harge. Labs (last 24 hrs) Laboratory Tests 01/10/22 10:59: Glucometer 109 01/10/22 16:17: Glucometer 97 01/10/22 20:38: Glucometer 94 01/11/22 05:34: Sodium Level 143, Potassium Level 3.5L, Chloride Level 110H, Carbon Dioxide Level 23, Anion Gap 10, Blood Urea Nitrogen 4L, Creatinine 0.67, Estimat Glomerular Filtration Rate 102, BUN/Creatinine Ratio 6, Glucose Level 91, Calcium Level 8.3L, Magnesium Level 1.6 01/11/22 05:57: Glucometer 93 Microbiology 01/08/22 Blood Culture - Preliminary, Resulted No growth 01/08/22 Urine Culture - Final, Complete Enterobacter cloacae complex Patient resulted labs reviewed. Pending Labs Laboratory Tests 01/11/22 05:34: Sodium Level 143, Potassium Level 3.5, Chloride Level 110, Carbon Dioxide Level 23, Anion Gap 10, Blood Urea Nitrogen 4, Creatinine 0.67, Estimat Glomerular Filtration Rate 102, BUN/Creatinine Ratio 6, Glucose Level 91, Calcium Level 8.3, Magnesium Level 1.6 01/11/22 05:57: Glucometer 93 Discussion & Recommendations Discharge Planning: >30 minutes discharge planning Discharge Home Medications: Active Scripts Active Reported Potassium Chloride 20 Meq Tablet.er 20 Meq PO DAILY Probiotic (L.acidoph & Paracasei,B.lactis) 10 Billion Cell Capsule 1 Each PO DAILY Stool Softener (Docusate Sodium) 100 Mg Capsule 200 Mg PO DAILY TAKES 2 (100MG) CAPS Calcium (Calcium Carbonate) 500 Mg Calcium (1250 Mg) Tablet 500 Mg PO DAILY Tramadol HCl 50 Mg Tablet 100 Mg PO TID Ozempic (Semaglutide) 0.25 Mg/0.2 Ml Pen.injctr 0.25 Mg SQ TUE Atorvastatin Calcium 10 Mg Tablet 10 Mg PO DAILY Furosemide 40 Mg Tablet 40 Mg PO DAILY Gabapentin 800 Mg Tablet 800 Mg PO TID Iprat-Albut 0.5-3(2.5) mg/3 ml (Ipratropium/Albuterol Sulfate) 0.5 Mg-3 Mg (2.5 Mg Base)/3 Ml Ampul.neb 3 Ml IH Q6H PRN Lisinopril 10 Mg Tablet 10 Mg PO HS Metformin HCl 1,000 Mg Tablet 500 Mg PO HS TAKES (500MG) TAB Metformin HCl 1,000 Mg Tablet 1,000 Mg PO DAILY Ropinirole HCl 3 Mg Tablet 3 Mg PO 2200 Spiriva (Tiotropium [place]) 18 Mcg Aerp 1 Inh IH HS Symbicort 160-4.5 Mcg Inhaler (Budesonide/Formoterol Fumarate) 160 Mcg-4.5 Mcg/Actuation Hfa.aer.ad 2 Puff IH HS Trazodone HCl 100 Mg Tablet 100-200 Mg PO HS PRN Xarelto (Rivaroxaban) 20 Mg Tablet 20 Mg PO HS Oxycodone-Acetaminophen 5-325 (Oxycodone HCl/Acetaminophen) 5 Mg-325 Mg Tablet 1 Ea PO BID PRN Ferrous Sulfate 325 Mg (65 Mg Iron) Tablet 325 Mg PO HS Ubrelvy (Ubrogepant) 100 Mg Tablet 100 Mg PO UD PRN TAKE 1 DOSE NEEDED AND THEN MAY TAKE SECOND DOSE AT LEAST 2 HOURS AFTER FIRST DOSE Estrace Tablet (Estradiol) 1 Mg Tablet 1 Mg PO DAILY LAST FILLED 08-19-2021 #90/90 DAY SUPPLY Zyrtec (Cetirizine HCl) 10 Mg Tablet 10 Mg PO HS Montelukast Sodium 10 Mg Tablet 10 Mg PO DAILY Diazepam 5 Mg Tablet 5 Mg PO BID [place] Carbonate 300 Mg Capsule 300 Mg PO BID Vraylar (Cariprazine Hydrochloride) 3 Mg Capsule 3 Mg PO HS Proair Hfa (Albuterol Sulfate) 1 Puff Puff 2 Puff PO Q4H PRN Instructions to patient/family Please see electronic discharge instructions given to patient. ANNIKA FARRAR MD Jan 11, 2022 10:45
[2022-01-11 11:18] VITALS: BP 133/86
--- NOTE | 2022-01-11 11:30 | Progress Note ---
Subjective Date Seen by a Provider: Jan 11, 2022 Time Seen by a Provider: 11:00 Subjective/Events-last exam doing well. tolerating diet. having BM's. no abd pain. Focused Exam Lactate Level 01/08/22 11:45: Lactic Acid Level 3.11*H 01/08/22 15:13: Lactic Acid Level 1.70 Objective Exam Vital Signs Date Time Temp Pulse Resp B/P (MAP) Pulse Ox O2 Delivery O2 Flow Rate FiO2 01/11/22 11:18 37.1 80 20 133/86 (102) 95 Room Air 01/11/22 08:34 Room Air 0.00 01/11/22 08:28 97 Room Air 0.00 01/11/22 08:08 36.8 64 20 131/84 (100) 96 Room Air 01/11/22 07:52 93 Room Air 01/11/22 03:43 36.2 73 16 107/74 (85) 93 Room Air 01/11/22 00:03 36.7 75 18 117/74 (88) 93 Room Air 01/10/22 20:57 96 Room Air 01/10/22 20:40 36.8 73 18 124/72 (89) 95 Room Air 01/10/22 20:00 Room Air 01/10/22 16:18 37.3 78 20 126/84 (98) 96 Room Air I & O 01/11/22 07:00 Intake Total 2450 ml Output Total 2550 ml Balance -100 ml Capillary Refill : Less Than 3 Seconds General Appearance: No Apparent Distress HEENT: PERRL/EOMI Neck: Full Range of Motion Respiratory: Chest Non Tender, Decreased Breath Sounds Cardiovascular: Regular Rate, Rhythm Gastrointestinal: normal bowel sounds, non tender, soft Extremity: Normal Capillary Refill Neurologic/Psychiatric: Alert, Oriented x3 Skin: Normal Color Lymphatic: No Adenopathy Results Lab Laboratory Tests 01/10/22 16:17: Glucometer 97 01/10/22 20:38: Glucometer 94 01/11/22 05:34: Sodium Level 143, Potassium Level 3.5L, Chloride Level 110H, Carbon Dioxide Level 23, Anion Gap 10, Blood Urea Nitrogen 4L, Creatinine 0.67, Estimat Glomerular Filtration Rate 102, BUN/Creatinine Ratio 6, Glucose Level 91, Calcium Level 8.3L, Magnesium Level 1.6 01/11/22 05:57: Glucometer 93 01/11/22 11:16: Glucometer 106 Microbiology 01/08/22 Blood Culture - Preliminary, Resulted No growth 01/08/22 Urine Culture - Final, Complete Enterobacter cloacae complex Assessment/Plan Assessment/Plan Assess & Plan/Chief Complaint constipation with hx IBS. alf will need high fiber diet with >25g/daily. SAMMIE OMALLEY MD Jan 11, 2022 11:30
[2022-01-11 12:00] VITALS: BP 133/86
== END 2022-01-11 13:10 | disposition home or self-care (01) | DRG 683 ==
LOC: EDUNIT# 10:28 → ER FS 10:30 → 4TH 13:35
PROVIDERS: ADMIT Family Medicine; ATTEND Internal Medicine
DX: N17.9 Acute kidney failure, unspecified (principal); D68.51 Activated protein C resistance; K56.7 Ileus, unspecified; K52.9 Noninfective gastroenteritis and colitis, unspecified; J43.9 Emphysema, unspecified; I11.0 Hypertensive heart disease with heart failure; I50.9 Heart failure, unspecified; Z20.822 Contact with and (suspected) exposure to COVID-19; E86.1 Hypovolemia; I95.9 Hypotension, unspecified; G25.81 Restless legs syndrome; E11.9 Type 2 diabetes mellitus without complications; K21.9 Gastro-esophageal reflux disease without esophagitis; E78.5 Hyperlipidemia, unspecified; M79.7 Fibromyalgia; F41.9 Anxiety disorder, unspecified; F32.A Depression, unspecified; Z88.5 Allergy status to narcotic agent; Z88.0 Allergy status to penicillin; Z91.040 Latex allergy status; Z86.718 Personal history of other venous thrombosis and embolism; Z86.711 Personal history of pulmonary embolism; Z83.3 Family history of diabetes mellitus; Z82.49 Family history of ischemic heart disease and other diseases of the circulatory system
CPT/HCPCS: 36415; 74176; 80048; 80053; 81000; 82947; 83605; 83690; 83735; 85025; 85027; 85610; 87040; 87077; 87088; 87186; 87636; 94640; 94760

== ENCOUNTER 2022-01-17 20:53 | Emergency (ER) | payer OTHER, MEDICAID ==
[~2022-01-17 20:53] MED LIST changes: +ATOR10TA66 PO; +BUDE10.2 IH; +CALC-823 PO; +DOCU-26 PO; +FERR325T18 PO; +GABA800T10 PO; +IPRA3AMP31 IH; +ROPI3TAB4 PO; +SEMA0.25 SQ; +UBRO100T PO
[2022-01-17] MEDS ORDERED: PANTOPRAZOLE 40 MG (PROTONIX) VIAL IV STA (21:04)
[2022-01-17] MEDS ORDERED: NS IV 1000 ML 1,000 ML IV STA (21:04)
[2022-01-17] MEDS ORDERED: fentaNYL INJ 100 MCG/2 ML AMP IVP STA (21:04)
[2022-01-17] MEDS ORDERED: ONDANSETRON 4 MG/2 ML (SDV) Z0FRAN IVP STA (21:04)
[2022-01-17 21:10] LABS: BILIRUBIN,URINE NEGATIVE (NEGATIVE); COLOR,URINE YELLOW; GLUCOSE, URINE (UA) NEGATIVE (NEGATIVE); KETONES,URINE NEGATIVE (NEGATIVE); LEUKOCYTE ESTERASE ,URINE NEGATIVE (NEGATIVE); NITRITE,URINE NEGATIVE (NEGATIVE); PROTEIN,URINE NEGATIVE (NEGATIVE)
[2022-01-17 21:10] LABS: BASOPHILS % (AUTO) 0 % (0-10); EOSINOPHILS # (AUTO) 0.3 10^3/uL (0.0-0.3); EOSINOPHILS % (AUTO) 3 % (0-10); HEMATOCRIT 39 % (35-52); LYMPHOCYTES # (AUTO) 3.3 10^3/uL (1.0-4.0); LYMPHOCYTES % (AUTO) 25 % (12-44); MEAN CORPUSCULAR HEMOGLOBIN 29 pg (25-34); MEAN CORPUSCULAR HGB CONC 31 g/dL (32-36); MEAN CORPUSCULAR VOLUME 94 fL (80-99); MEAN PLATELET VOLUME 8.9 fL (9.0-12.2); MONOCYTES # (AUTO) 0.7 10^3/uL (0.0-1.0); MONOCYTES % (AUTO) 5 % (0-12); NEUTROPHILS % (AUTO) 67 % (42-75); PLATELET COUNT 361 10^3/uL (130-400); WHITE BLOOD COUNT 13.4 10^3/uL (4.3-11.0)
[2022-01-17 21:19] LABS: BACTERIA,URINE LARGE /HPF; CLARITY,URINE SLIGHTLY CLOUDY; SQUAMOUS EPITHELIAL CELL,UR 25-50 /HPF; WBC,URINE 25-50 /HPF
--- NOTE | 2022-01-17 21:25 | ED GI ---
General Chief Complaint: Abdominal/GI Problems Stated Complaint: NAUSEA,ABD PAIN Nursing Triage Note: Pt complaining of abd pain that started a few days ago. Pt states she hasn't been able to have a bm in a couple days. Pt also complaining of nausea. Source of Information: Patient, Old Records History of Present Illness Date Seen by Provider: Jan 17, 2022 Time Seen by Provider: 20:58 Initial Comments 56-year-old female presenting with complaints of abdominal pain started on the right side coming up and across her upper abdomen. She states that this is been going on since before she was admitted last week on January 08. She still has nausea but no vomiting. She had a very small amount of stool 2 days ago but ot herwise has not been able to pass any stool. She is still passing gas and having bowel sounds. She gets nauseated even with drinking water or putting anything on her stomach but has not actually vomited. She is concerned because she has several family members that have had colon cancer. She did have a polyp that was removed and biopsied last year with a colonoscopy. At that time it was benign. There was no mass or obstruction seen on her CT last week. She is concerned that she may have a bowel obstruction causing her symptoms. She also complains of pain in her kidney area. Timing/Duration: 1 Week Severity/Quality: Severe, Cramping, Sharp Location: Generalized Abdomen (worse on right side up across upper abdomen) Radiation: No Radiation Activities at Onset: None Modifying Factors: Worsens With Eating Associated Symptoms: No Back Pain, No Chest Pain, No Diaphoresis, No Fever/Chills, No Fatigue, No Headache, No Heartburn; Nausea/Vomiting (nausea without vomiting); No Shortness of Air, No Swelling/Mass in Abdomen, No Syncope, No Weakness Allergies and Home Medications Allergies Coded Allergies: Penicillins (Verified Allergy, Unknown, 03/02/20) hydrocodone (Verified Allergy, Unknown, 12/05/19) latex (Verified Allergy, Unknown, 12/05/19) morphine (Verified Allergy, Unknown, 12/05/19) Uncoded Allergies: PLASTIC TAPE (Allergy, Mild, 12/05/19) Patient Home Medication List Home Medication List Reviewed: Yes Albuterol Sulfate (Proair Hfa) 1 Puff Puff, 2 PUFF PO Q4H PRN for SHORTNESS OF BREATH, (Reported) Entered as Reported by: RANDA BALDWIN on 12/06/19 08 Atorvastatin Calcium (Atorvastatin Calcium) 10 Mg Tablet, 10 MG PO DAILY, (Reported) Entered as Reported by: RANDA BALDWIN on 01/09/22 144 Budesonide/Formoterol Fumarate (Symbicort 160-4.5 Mcg Inhaler) 160 Mcg-4.5 Mcg/Actuation Hfa.aer.ad, 2 PUFF IH HS, (Reported) Entered as Reported by: RANDA BALDWIN on 01/09/22 144 Calcium Carbonate (Calcium) 500 Mg Calcium (1250 Mg) Tablet, 500 MG PO DAILY, (Reported) Entered as Reported by: RANDA BALDWIN on 01/09/22 144 Cariprazine Hydrochloride (Vraylar) 3 Mg Capsule, 3 MG PO HS, (Reported) Entered as Reported by: RANDA BALDWIN on 12/06/19836 Cetirizine HCl (Zyrtec) 10 Mg Tablet, 10 MG PO HS, (Reported) Entered as Reported by: SARAH BARRY on 01/16/20 110 Diazepam (Diazepam) 5 Mg Tablet, 5 MG PO BID, (Reported) Entered as Reported by: RANDA BALDWIN on 12/06/19 08 Dicyclomine HCl (Dicyclomine HCl) 10 Mg Capsule, 10 MG PO Q6H PRN for abdominal pain/cramping Prescribed by: MAGALIE JOSÉ on 01/17/22 2241 Docusate Sodium (Stool Softener) 100 Mg Capsule, 200 MG PO DAILY, (Reported) Entered as Reported by: RANDA BALDWIN on 01/09/22 144 Estradiol (Estrace Tablet) 1 Mg Tablet, 1 MG PO DAILY, (Reported) Entered as Reported by: SARAH BARRY on 01/16/20 1106 Ferrous Sulfate (Ferrous Sulfate) 325 Mg (65 Mg Iron) Tablet, 325 MG PO HS, (Reported) Entered as Reported by: RANDA BALDWIN on 01/09/22 144 Furosemide (Furosemide) 40 Mg Tablet, 40 MG PO DAILY, (Reported) Entered as Reported by: RANDA BALDWIN on 01/09/22 144 Gabapentin (Gabapentin) 800 Mg Tablet, 800 MG PO TID, (Reported) Entered as Reported by: RANDA BALDWIN on 01/09/22 1447 Ipratropium/Albuterol Sulfate (Iprat-Albut 0.5-3(2.5) mg/3 ml) 0.5 Mg-3 Mg (2.5 Mg Base)/3 Ml Ampul.neb, 3 ML IH Q6H PRN for SHORTNESS OF BREATH, (Reported) Entered as Reported by: RANDA BALDWIN on 01/09/22 144 L.acidoph & Paracasei,B.lactis (Probiotic) 10 Billion Cell Capsule, 1 EACH PO DAILY, (Reported) Entered as Reported by: RANDA BALDWIN on 01/09/22 1449 Lisinopril (Lisinopril) 10 Mg Tablet, 10 MG PO HS, (Reported) Entered as Reported by: RANDA BALDWIN on 01/09/22 144 [place] Carbonate ([place] Carbonate) 300 Mg Capsule, 300 MG PO BID, (Reported) Entered as Reported by: RANDA BALDWIN on 12/06/19 08 Metformin HCl (Metformin HCl) 1,000 Mg Tablet, 1,000 MG PO DAILY, (Reported) Entered as Reported by: RANDA BALDWIN on 01/09/22 144 Metformin HCl (Metformin HCl) 1,000 Mg Tablet, 500 MG PO HS, (Reported) Entered as Reported by: RANDA BALDWIN on 01/09/22 144 Metoclopramide HCl (Metoclopramide HCl) 5 Mg Tablet, 5 MG PO Q6H PRN for NAUSEA/VOMITING Prescribed by: MAGALIE JOSÉ on 01/17/22 2241 Montelukast Sodium (Montelukast Sodium) 10 Mg Tablet, 10 MG PO DAILY, (Reported) Entered as Reported by: RANDA BALDWIN on 12/06/19 08 Oxycodone HCl/Acetaminophen (Oxycodone-Acetaminophen 5-325) 5 Mg-325 Mg Tablet, 1 EA PO BID PRN for PAIN-MODERATE (5-7), (Reported) Entered as Reported by: RANDA BALDWIN on 01/09/22 144 Potassium Chloride (Potassium Chloride) 20 Meq Tablet.er, 20 MEQ PO DAILY, (Reported) Entered as Reported by: RANDA BALDWIN on 01/09/22 145 Rivaroxaban (Xarelto) 20 Mg Tablet, 20 MG PO HS, (Reported) Entered as Reported by: RANDA BALDWIN on 01/09/221446 Ropinirole HCl (Ropinirole HCl) 3 Mg Tablet, 3 MG PO 2200, (Reported) Entered as Reported by: RANDA BALDWIN on 01/09/221446 Semaglutide (Ozempic) 0.25 Mg/0.2 Ml Pen.injctr, 0.25 MG SQ TUE, (Reported) Entered as Reported by: RANDA BALDWIN on 01/09/221446 Tiotropium [place] (Spiriva) 18 Mcg Aerp, 1 INH IH HS, (Reported) Entered as Reported by: RANDA BALDWIN on 01/09/221446 Tramadol HCl (Tramadol HCl) 50 Mg Tablet, 100 MG PO TID, (Reported) Entered as Reported by: RANDA BALDWIN on 01/09/221446 Trazodone HCl (Trazodone HCl) 100 Mg Tablet, 100-200 MG PO HS PRN for SLEEP, (Reported) Entered as Reported by: RANDA BALDWIN on 01/09/221446 Ubrogepant (Ubrelvy) 100 Mg Tablet, 100 MG PO UD PRN for HEADACHE, (Reported) Entered as Reported by: RANDA BALDWIN on 01/09/221446 Review of Systems Review of Systems Constitutional: No chills, No diaphoresis, No dizziness, No fever EENTM: No Symptoms Reported Respiratory: No Symptoms Reported Cardiovascular: No Symptoms Reported Gastrointestinal: See HPI Genitourinary: See HPI Musculoskeletal: muscle pain (pain to the back of her left calf) Skin: No change in color Psychiatric/Neurological: No Symptoms Reported Endocrine: No Symptoms Reported Past Cdevcbx-Baqnst-Azsqke Hx Patient Social History Tobacco Use?: No Use of E-Cig and/or Vaping dev: No Substance use?: No Alcohol Use?: No Pt feels they are or have been: No Immunizations Up To Date First/Initial COVID19 Vaccinat: 09/2020 Second COVID19 Vaccination Musa: 09/2020 Seasonal Allergies Seasonal Allergies: No Past Medical History Surgery/Hospitalization HX: COPD/asthma, CHF Surgeries: Yes Abdominal, Appendectomy, Gallbladder Respiratory: Yes Asthma, COPD Currently Using CPAP: No Currently Using BIPAP: No Cardiac: Yes (CHF) Hypertension Neurological: Yes (fibromyalgia) 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 Genitourinary: No Kidney Stones, UTI-Chronic Gastrointestinal: Yes Gastroesophageal Reflux, Gall Bladder Disease Musculoskeletal: Yes Arthritis, Fibromyalgia Endocrine: Yes Diabetes, Non-Insulin dep HEENT: No Loss of Vision: Denies Hearing Impairment: Denies Cancer: No Psychosocial: No Anxiety, Depression Integumentary: No Blood Disorders: Yes (Factor V deficiency) Adverse Reaction/Blood Tranf: No Family Medical History Cardiovascular disease 19 MOTHER Colon cancer 19 FATHER G8 BROTHER G8 BROTHER Diabetes mellitus 19 MOTHER G8 BROTHER Heart Disease, Cancer, Diabetes Physical Exam Vital Signs Vital Signs - First Documented 01/17/22 20:59 Temp 36.8 Pulse 84 Resp 18 B/P (MAP) 123/73 (90) Pulse Ox 92 O2 Delivery Room Air Capillary Refill : Less Than 3 Seconds Height/Weight/BMI Height: 5'2.00" Weight: 180lbs. oz. [id number]; 39.18 BMI Method:Estimated General Appearance: WD/WN, no apparent distress HEENT: PERRL/EOMI, pharynx normal Neck: non-tender, full range of motion, supple, normal inspection Respiratory: chest non-tender, lungs clear, normal breath sounds, no respiratory distress, no accessory muscle use Cardiovascular: normal peripheral pulses, regular rate, rhythm Gastrointestinal: soft, no pulsatile mass, abnormal bowel sounds (hypoactive); No distended, No guarding, No rebound; tenderness (right side of abdomen and across upper abdomen) Rectal: deferred Extremities: normal range of motion, normal capillary refill, calf tenderness (left leg) Back: CVA tenderness (R), CVA tenderness (L) Neurologic/Psychiatric: alert, oriented x 3 Skin: normal color, warm/dry Progress/Results/Core Measures Results/Orders Lab Results Laboratory Tests Test 01/17/22 21:00 01/17/22 21:08 Range/Units Urine Color YELLOW Urine Clarity SLIGHTLY CLOUDY Urine pH 6.0 5-9 Urine Specific [place] 1.010 L 1.016-1.022 Urine Protein NEGATIVE NEGATIVE Urine Glucose (UA) NEGATIVE NEGATIVE Urine Ketones NEGATIVE NEGATIVE Urine Nitrite NEGATIVE NEGATIVE Urine Bilirubin NEGATIVE NEGATIVE Urine Urobilinogen 0.2 < = 1.0 MG/DL Urine Leukocyte Esterase NEGATIVE NEGATIVE Urine RBC (Auto) TRACE-L H NEGATIVE Urine RBC NONE /HPF Urine WBC 25-50 H /HPF Urine Squamous Epithelial Cells 25-50 H /HPF Urine Crystals NONE /LPF Urine Bacteria LARGE H /HPF Urine Casts NONE /LPF Urine Mucus NEGATIVE /LPF Urine Culture Indicated NO White Blood Count 13.4 H 4.3-11.0 10^3/uL Red Blood Count 4.17 3.80-5.11 10^6/uL Hemoglobin 12.0 11.5-16.0 g/dL Hematocrit 39 35-52 % Mean Corpuscular Volume 94 80-99 fL Mean Corpuscular Hemoglobin 29 25-34 pg Mean Corpuscular Hemoglobin Concent 31 L 32-36 g/dL Red Cell Distribution Width 14.6 H 10.0-14.5 % Platelet Count 361 130-400 10^3/uL Mean Platelet Volume 8.9 L 9.0-12.2 fL Immature Granulocyte % (Auto) 1 % Neutrophils (%) (Auto) 67 42-75 % Lymphocytes (%) (Auto) 25 12-44 % Monocytes (%) (Auto) 5 0-12 % Eosinophils (%) (Auto) 3 0-10 % Basophils (%) (Auto) 0 0-10 % Neutrophils # (Auto) 9.0 H 1.8-7.8 10^3/uL Lymphocytes # (Auto) 3.3 1.0-4.0 10^3/uL Monocytes # (Auto) 0.7 0.0-1.0 10^3/uL Eosinophils # (Auto) 0.3 0.0-0.3 10^3/uL Basophils # (Auto) 0.0 0.0-0.1 10^3/uL Immature Granulocyte # (Auto) 0.1 0.0-0.1 10^3/uL Prothrombin Time 16.3 H 12.2-14.7 SEC INR Comment 1.3 0.8-1.4 Activated Partial Thromboplast Time 35 24-35 SEC D-Dimer 0.63 H 0.00-0.49 UG/ML Sodium Level 138 135-145 MMOL/L Potassium Level 3.8 3.6-5.0 MMOL/L Chloride Level 98 98-107 MMOL/L Carbon Dioxide Level 30 21-32 MMOL/L Anion Gap 10 5-14 MMOL/L Blood Urea Nitrogen 6 L 7-18 MG/DL Creatinine 1.12 0.60-1.30 MG/DL Estimat Glomerular Filtration Rate 57 BUN/Creatinine Ratio 5 Glucose Level 90 70-105 MG/DL Calcium Level 9.3 8.5-10.1 MG/DL Corrected Calcium 9.1 8.5-10.1 MG/DL Total Bilirubin 0.5 0.1-1.0 MG/DL Aspartate Amino Transf (AST/SGOT) 22 5-34 U/L Alanine Aminotransferase (ALT/SGPT) 17 0-55 U/L Alkaline Phosphatase 86 40-136 U/L Total Protein 7.3 6.4-8.2 GM/DL Albumin 4.2 3.2-4.5 GM/DL Lipase 24 8-78 U/L My Orders Orders - MAGALIE JOSÉ MD Comprehensive Metabolic Panel (01/17/22 21:04) Lipase (01/17/22 21:04) Ua Culture If Indicated (01/17/22 21:04) Ed Iv/Invasive Line Start (01/17/22 21:04) Cbc With Automated Diff (01/17/22 21:04) Ct Abdomen/Pelvis Wo (01/17/22 21:04) Lactic Acid Analyzer (01/17/22 21:04) Ns Iv 1000 Ml (Sodium Chloride 0.9%) (01/17/22 21:04) Ondansetron Injection (Zofran Injectio (01/17/22 21:04) Pantoprazole Injection (Protonix Injecti (01/17/22 21:04) Fentanyl Inj (Sublimaze Injection) (01/17/22 21:04) Fibrin Degradation Products (01/17/22 21:18) Protime With Inr (01/17/22 21:18) Partial Thromboplastin Time (01/17/22 21:18) Rx-Dicyclomine Capsule (Rx-Bentyl Capsul (01/17/22 22:34) Rx-Metoclopramide Tab (Rx-Reglan Tab) (01/17/22 22:45) Medications Given in ED Current Medications Medications Dose Ordered Sig/Ren Route Start Time Stop Time Status Last Admin Dose Admin Metoclopramide HCl 5 mg Q6H PRN PO 01/17/22 22:45 01/17/22 22:45 DC 01/17/22 22:40 5 MG Vital Signs/I&O 01/17/22 01/17/22 20:59 22:45 Temp 36.8 Pulse 84 75 Resp 18 16 B/P (MAP) 123/73 (90) 123/73 Pulse Ox 92 98 O2 Delivery Room Air Room Air Blood Pressure Mean: 90 Progress Progress Note #1: Progress Note Check labs and urinalysis as well as CT scan without contrast to evaluate for possible bowel obstruction, colitis, diverticulitis, abdominal mass. Give normal saline 1 L IV fluid bolus for hydration, Zofran 4 mg IV for nausea, fentanyl 50 mcg IV for pain, Protonix 40 mg IV for possible gastritis Progress Note #2: Progress Note Labs appear stable without acute significant abnormality to account for her abdominal pain and nausea. She was not showing signs of acute kidney injury like last week. Also her urine was clear of infection. Her CT scan did not show obstruction, mass, inflammation. Counseled patient and family about results. Advised that a colonoscopy may be needed to look for reason for her pain. In the meantime we will try Reglan for nausea and motility as well as dicyclomine or Bentyl to help with abdominal spasms and cramping. She did have mild elevation of her D-dimer to 0.63. However if she was having any blood clot in her calf on the left side causing her pain taking the Xarelto she is prescribed would treat for that. She states that she missed several days last week when she was in the hospital. Diagnostic Imaging Diagonstic Imaging: CT Plain Films/CT/US/NM/MRI: abdomen, pelvis Comments [facility] [place], [place] NAME: NICKIE CHUA [facility] REC#: [id number] PT STATUS: REG ER : 1965 PHYSICIAN: MAGALIE JOSÉ MD ADMIT DATE: 01/17/22/ER FS Signed Date of Exam:01/17/22 CT ABDOMEN/PELVIS WO PROCEDURE: CT abdomen and pelvis without contrast. TECHNIQUE: Multiple contiguous axial images were obtained through the abdomen and pelvis without the use of intravenous contrast. Auto Exposure Controls were utilized during the CT exam to meet ALARA standards for radiation dose reduction. INDICATION: Pain and constipation with some nausea. COMPARISON: Study compared to 01/08/2022. FINDINGS: Previous small bowel dilatation and small bowel fecalization have resolved in the interim. No evidence for obstruction or significant ileus at today's exam. At follow-up, no segmental small bowel wall thickening is present and today no perienteric or pericolonic edema. No focal inflammatory changes and there has been no adverse development. Anterior abdominal wall mesh redemonstrated with no acute abdominal wall pathology. There is no hydroureteronephrosis and no radiopaque urinary tract calculi. Gallbladder absent. The liver, spleen, adrenals and pancreas are nonacute. The aorta is nonaneurysmal. 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 The lung bases showed some partial atelectasis but no evidence of pneumonia or pleural fluid. IMPRESSION: 1. Resolution of bowel dilatation. No findings of obstruction at follow-up and no segmental small or large bowel wall inflammatory changes. No abnormal fecal loading or impaction. 2. No acute appearing abnormality. No adverse change. Dictated by: Dictated on workstation # [id number] Dict: 01/17/222128 Trans: 01/17/222152 [facility] [id number] Interpreted by: TIBURCIO HARP Electronically signed by: TIBURCIO HARP 01/17/222152 Reviewed: Reviewed by Me Departure Impression Primary Impression: Diffuse abdominal pain Additional Impression: Nausea Disposition: 01 HOME, SELF-CARE Condition: Stable Departure-Patient Inst. Decision time for Depature: 22:37 Referrals: ADDY SMART APRN (PCP) Primary Care Physician [facility] (Family) Primary Care Physician GIORGIO LEONARD DO Patient Instructions: Nausea and Vomiting, Adult ED, Abdominal Pain, Adult ED Add. Discharge Instructions: Take the metoclopramide or Reglan 5 mg up to every 6 hours as needed for nausea and this will help with your movement and motility of your intestines and stomach. Take the Bentyl or dicyclomine 10 mg up to every 6 hours as needed for abdominal pain and cramping. Try to increase the fluids and food in your diet. Consider taking protein shakes or nutrition shakes to help get some extra nutrition and start bulking up your stools. Check with Dr. Leonard about obtaining a colonoscopy to look for other reasons for your pain. All discharge instructions reviewed with patient and/or family. Voiced understanding. Scripts Metoclopramide HCl (Metoclopramide HCl) 5 Mg Tablet 5 MG PO Q6H PRN for NAUSEA/VOMITING for 4 Days, #16 TAB 0 Refills Prov: MAGALIE JOSÉ MD 01/17/22 Dicyclomine HCl (Dicyclomine HCl) 10 Mg Capsule 10 MG PO Q6H PRN for abdominal pain/cramping for 7 Days, #28 CAP 0 Refills Prov: MAGALIE JOSÉ MD 01/17/22 MAGALIE JOSÉ MD Jan 17, 2022 21:25
[2022-01-17 21:30] LABS: CREATININE SERUM 1.12 MG/DL (0.60-1.30); POTASSIUM 3.8 MMOL/L (3.6-5.0)
[2022-01-17 21:31] LABS: ALBUMIN 4.2 GM/DL (3.2-4.5); BILIRUBIN,TOTAL 0.5 MG/DL (0.1-1.0); CALCIUM 9.3 MG/DL (8.5-10.1); TOTAL PROTEIN 7.3 GM/DL (6.4-8.2)
[2022-01-17 21:41] LABS: INR 1.3 (0.8-1.4); PROTHROMBIN TIME PATIENT 16.3 SEC (12.2-14.7)
[2022-01-17 21:43] LABS: FIBRIN DEGRADATION PRODUCTS 0.63 UG/ML (0.00-0.49)
--- NOTE | 2022-01-17 21:46 | Diagnostic Imaging Report ---
PROCEDURE: CT abdomen and pelvis without contrast. TECHNIQUE: Multiple contiguous axial images were obtained through the abdomen and pelvis without the use of intravenous contrast. Auto Exposure Controls were utilized during the CT exam to meet ALARA standards for radiation dose reduction. INDICATION: Pain and constipation with some nausea. COMPARISON: Study compared to 01/08/2022. FINDINGS: Previous small bowel dilatation and small bowel fecalization have resolved in the interim. No evidence for obstruction or significant ileus at today's exam. At follow-up, no segmental small bowel wall thickening is present and today no perienteric or pericolonic edema. No focal inflammatory changes and there has been no adverse development. Anterior abdominal wall mesh redemonstrated with no acute abdominal wall pathology. There is no hydroureteronephrosis and no radiopaque urinary tract calculi. Gallbladder absent. The liver, spleen, adrenals and pancreas are nonacute. The aorta is nonaneurysmal. 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 The lung bases showed some partial atelectasis but no evidence of pneumonia or pleural fluid. IMPRESSION: 1. Resolution of bowel dilatation. No findings of obstruction at follow-up and no segmental small or large bowel wall inflammatory changes. No abnormal fecal loading or impaction. 2. No acute appearing abnormality. No adverse change. Dictated by: Dictated on workstation # [id number]
[2022-01-17] MEDS ORDERED: RX-DICYCLOMINE 10 MG (BENTYL) CAP PPK#4 PO STA (22:34)
[2022-01-17] MEDS ORDERED: DICY10CA12 PO (22:41)
[2022-01-17] MEDS ORDERED: METO5TAB2 PO (22:41)
[2022-01-17 22:45] VITALS: BP 123/73
[2022-01-17] MEDS ORDERED: RX-METOCLOPRAMIDE 5 MG (REGLAN) TAB PPK#8 PO PRN (22:45)
== END 2022-01-17 22:45 | disposition home or self-care (01) ==
LOC: EDUNIT# 20:53 → ER FS 20:54
DX: R10.84 Generalized abdominal pain (principal); R11.0 Nausea; Z90.49 Acquired absence of other specified parts of digestive tract; Z28.310 Unvaccinated for COVID-19
CPT/HCPCS: 36415; 74176; 80053; 81000; 83690; 85025; 85379; 85610; 85730

== ENCOUNTER → 2022-01-23 | Outpatient (CLI) | payer OTHER, MEDICAID ==
[~2022-01-23] MED LIST changes: +DICY10CA12 PO; +METO5TAB2 PO
--- NOTE | 2022-01-23 16:20 | Diagnostic Imaging Report ---
EXAMINATION: CT head without contrast. TECHNIQUE: Multiple contiguous axial images were obtained through the brain without the use of intravenous contrast. All CT scans use one or more of the following dose optimizing techniques: automated exposure control, MA and/or KvP adjustment based on patient size and exam type or iterative reconstruction. HISTORY: Altered mental status COMPARISON: None available. FINDINGS: The garcía-white matter differentiation is normal. No mass effect or midline shift. The ventricles are normal in size and configuration. Basilar cisterns are patent. There are no intra- or extra-axial fluid collections. There is no intracranial hemorrhage. The orbits are normal. Paranasal sinuses are normal. Mastoid air cells are clear. No soft tissue abnormality is seen. No osseus lesions or fractures are seen. There is a bone island in the occiput. IMPRESSION: 1. No acute intracranial abnormality. Dictated by: Dictated on workstation # [id number]
[2022-01-23 16:45] LABS: ALANINE AMINOTRANSFERASE 18 U/L (0-55); ALBUMIN 3.9 GM/DL (3.2-4.5); ALKALINE PHOSPHATASE 80 U/L (40-136); BILIRUBIN,TOTAL 0.6 MG/DL (0.1-1.0); BUN/CREATININE RATIO 7; CALCIUM 9.4 MG/DL (8.5-10.1); CARBON DIOXIDE 24 MMOL/L (21-32); CHLORIDE 97 MMOL/L (98-107); GFR ESTIMATED 18; GLUCOSE 102 MG/DL (70-105); POTASSIUM 4.7 MMOL/L (3.6-5.0); SODIUM 133 MMOL/L (135-145)
== END ==
LOC: RAD FS 15:52
PROVIDERS: ATTEND Nurse Practitioner Family
DX: R41.82 Altered mental status, unspecified (principal); R46.89 Other symptoms and signs involving appearance and behavior; R47.81 Slurred speech; R26.9 Unspecified abnormalities of gait and mobility
CPT/HCPCS: 36415; 70450; 80053; 80320

== ENCOUNTER 2022-02-04 16:26 | Emergency (ER) | payer OTHER, MEDICAID ==
[~2022-02-04] VITALS: Ht 154.9 cm; Wt 86.1 kg
[~2022-02-04 16:26] MED LIST changes: -MOME0.13 IH; +MOME110A IH
--- NOTE | 2022-02-04 16:42 | ED GU-Female ---
General Chief Complaint: - Reproductive Stated Complaint: UTI ISSUES History of Present Illness Date Seen by Provider: Feb 04, 2022 Time Seen by Provider: 16:42 Initial Comments 56-year-old female is here with complaints of suprapubic and periumbilical pain which began a couple days ago, associated with dysuria and hematuria. Denies fever, chest pain, palpitations, diarrhea, headache, sick contacts. Allergies and Home Medications Allergies Coded Allergies: Penicillins (Verified Allergy, Unknown, 03/02/20) hydrocodone (Verified Allergy, Unknown, 12/05/19) latex (Verified Allergy, Unknown, 12/05/19) morphine (Verified Allergy, Unknown, 12/05/19) Uncoded Allergies: PLASTIC TAPE (Allergy, Mild, 12/05/19) Patient Home Medication List Home Medication List Reviewed: Yes Albuterol Sulfate (Proair Hfa) 1 Puff Puff, 2 PUFF PO Q4H PRN for SHORTNESS OF BREATH, (Reported) Entered as Reported by: RANDA BALDWIN on 12/06/19 0837 Atorvastatin Calcium (Atorvastatin Calcium) 10 Mg Tablet, 10 MG PO DAILY, (Reported) Entered as Reported by: RANDA BALDWIN on 01/09/22 1447 Budesonide/Formoterol Fumarate (Symbicort 160-4.5 Mcg Inhaler) 160 Mcg-4.5 Mcg/Actuation Hfa.aer.ad, 2 PUFF IH HS, (Reported) Entered as Reported by: RANDA BALDWIN on 01/09/22 1447 Calcium Carbonate (Calcium) 500 Mg Calcium (1250 Mg) Tablet, 500 MG PO DAILY, (Reported) Entered as Reported by: RANDA BALDWIN on 01/09/22 1449 Cariprazine Hydrochloride (Vraylar) 3 Mg Capsule, 3 MG PO HS, (Reported) Entered as Reported by: RANDA BALDWIN on 12/06/19 0837 Cetirizine HCl (Zyrtec) 10 Mg Tablet, 10 MG PO HS, (Reported) Entered as Reported by: SARAH BARRY on 01/16/20 1106 Diazepam (Diazepam) 5 Mg Tablet, 5 MG PO BID, (Reported) Entered as Reported by: RANDA BALDWIN on 12/06/19 0837 Dicyclomine HCl (Dicyclomine HCl) 10 Mg Capsule, 10 MG PO Q6H PRN for abdominal pain/cramping Prescribed by: MAGALIE JOSÉ on 01/17/22 2241 Docusate Sodium (Stool Softener) 100 Mg Capsule, 200 MG PO DAILY, (Reported) Entered as Reported by: RANDA BALDWIN on 01/09/22 144 Estradiol (Estrace Tablet) 1 Mg Tablet, 1 MG PO DAILY, (Reported) Entered as Reported by: SARAH BARRY on 01/16/20 1106 Ferrous Sulfate (Ferrous Sulfate) 325 Mg (65 Mg Iron) Tablet, 325 MG PO HS, (Reported) Entered as Reported by: RANDA BALDWIN on 01/09/22 144 Furosemide (Furosemide) 40 Mg Tablet, 40 MG PO DAILY, (Reported) Entered as Reported by: RANDA BALDWIN on 01/09/22 144 Gabapentin (Gabapentin) 800 Mg Tablet, 800 MG PO TID, (Reported) Entered as Reported by: RANDA BALDWIN on 01/09/22 144 Ipratropium/Albuterol Sulfate (Iprat-Albut 0.5-3(2.5) mg/3 ml) 0.5 Mg-3 Mg (2.5 Mg Base)/3 Ml Ampul.neb, 3 ML IH Q6H PRN for SHORTNESS OF BREATH, (Reported) Entered as Reported by: RANDA BALDWIN on 01/09/22 144 L.acidoph & Paracasei,B.lactis (Probiotic) 10 Billion Cell Capsule, 1 EACH PO DAILY, (Reported) Entered as Reported by: RANDA BALDWIN on 01/09/22 144 Lisinopril (Lisinopril) 10 Mg Tablet, 10 MG PO HS, (Reported) Entered as Reported by: RANDA BALDWIN on 01/09/22 144 Dish Carbonate (Dish Carbonate) 300 Mg Capsule, 300 MG PO BID, (Reported) Entered as Reported by: RANDA BALDWIN on 12/06/19 0837 Metformin HCl (Metformin HCl) 1,000 Mg Tablet, 1,000 MG PO DAILY, (Reported) Entered as Reported by: RANDA BALDWIN on 01/09/22 144 Metformin HCl (Metformin HCl) 1,000 Mg Tablet, 500 MG PO HS, (Reported) Entered as Reported by: RANDA BALDWIN on 7/01/24 1447 Metoclopramide HCl (Metoclopramide HCl) 5 Mg Tablet, 5 MG PO Q6H PRN for NAUSEA/VOMITING Prescribed by: MAGALIE JOSÉ on 01/17/22 224 Montelukast Sodium (Montelukast Sodium) 10 Mg Tablet, 10 MG PO DAILY, (Reported) Entered as Reported by: RANDA BALDWIN on 12/06/19 0837 Oxycodone HCl/Acetaminophen (Oxycodone-Acetaminophen 5-325) 5 Mg-325 Mg Tablet, 1 EA PO BID PRN for PAIN-MODERATE (5-7), (Reported) Entered as Reported by: RANDA BALDWIN on 01/09/221446 Potassium Chloride (Potassium Chloride) 20 Meq Tablet.er, 20 MEQ PO DAILY, (Reported) Entered as Reported by: RANDA BALDWIN on 01/09/22 145 Rivaroxaban (Xarelto) 20 Mg Tablet, 20 MG PO HS, (Reported) Entered as Reported by: RANDA BALDWIN on 01/09/221446 Ropinirole HCl (Ropinirole HCl) 3 Mg Tablet, 3 MG PO 0, (Reported) Entered as Reported by: RANDA BALDWIN on 01/09/221446 Semaglutide (Ozempic) 0.25 Mg/0.2 Ml Pen.injctr, 0.25 MG SQ TUE, (Reported) Entered as Reported by: RANDA BALDWIN on 01/09/221446 Tiotropium Omega (Spiriva) 18 Mcg Aerp, 1 INH IH HS, (Reported) Entered as Reported by: RANDA BALDWIN on 01/09/221446 Tramadol HCl (Tramadol HCl) 50 Mg Tablet, 100 MG PO TID, (Reported) Entered as Reported by: RANDA BALDWIN on 01/09/221446 Trazodone HCl (Trazodone HCl) 100 Mg Tablet, 100-200 MG PO HS PRN for SLEEP, (Reported) Entered as Reported by: RANDA BALDWIN on 01/09/221446 Ubrogepant (Ubrelvy) 100 Mg Tablet, 100 MG PO UD PRN for HEADACHE, (Reported) Entered as Reported by: RANDA BALDWIN on 01/09/221446 Review of Systems Review of Systems Constitutional: no symptoms reported EENTM: no symptoms reported Respiratory: no symptoms reported Cardiovascular: no symptoms reported Gastrointestinal: abdominal pain Genitourinary: dysuria Musculoskeletal: no symptoms reported Skin: no symptoms reported Psychiatric/Neurological: No Symptoms Reported Endocrine: No Symptoms Reported Hematologic/Lymphatic: No Symptoms Reported Past Xciomub-Efqmvs-Ciyvze Hx Immunizations Up To Date First/Initial COVID19 Vaccinat: 09/2020 Second COVID19 Vaccination Musa: 09/2020 Seasonal Allergies Seasonal Allergies: No Past Medical History Surgery/Hospitalization HX: COPD/asthma, CHF Surgeries: Yes Abdominal, Appendectomy, Gallbladder Respiratory: Yes Asthma, COPD Currently Using CPAP: No Currently Using BIPAP: No Cardiac: Yes (CHF) Hypertension Neurological: Yes (fibromyalgia) [employer] History: 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 Genitourinary: No Kidney Stones, UTI-Chronic Gastrointestinal: Yes Gastroesophageal Reflux, Gall Bladder Disease Musculoskeletal: Yes Arthritis, Fibromyalgia Endocrine: Yes Diabetes, Non-Insulin dep HEENT: No Loss of Vision: Denies Hearing Impairment: Denies Cancer: No Psychosocial: No Anxiety, Depression Integumentary: No Blood Disorders: Yes (Factor V deficiency) Adverse Reaction/Blood Tranf: No Family Medical History Cardiovascular disease 19 MOTHER Colon cancer 19 FATHER G8 BROTHER G8 BROTHER Diabetes mellitus 19 MOTHER G8 BROTHER Heart Disease, Cancer, Diabetes Physical Exam Vital Signs Vital Signs - First Documented 02/04/22 16:41 Temp 36.7 Pulse 88 Resp 16 B/P (MAP) 79/55 (63) Pulse Ox 95 O2 Delivery Room Air Capillary Refill : Height, Weight, BMI Height: 5'2.00" Weight: 180lbs. oz. 81.213494so; 39.18 BMI Method:Estimated General Appearance: WD/WN, mild distress HEENT: PERRL/EOMI Neck: non-tender, full range of motion Cardiovascular: normal peripheral pulses, regular rate, rhythm, no edema Respiratory: chest non-tender, lungs clear, normal breath sounds Gastrointestinal: normal bowel sounds, soft, tenderness (suprapbic and periumbilical tenderness) Back: normal inspection, no CVA tenderness, no vertebral tenderness Neurologic/Psychiatric: alert, normal mood/affect, oriented x 3 Skin: normal color Progress/Results/Core Measures Suspected Sepsis SIRS Temperature: Pulse: Respiratory Rate: Laboratory Tests 02/04/22 17:34: White Blood Count 14.3H Blood Pressure / Mean: Laboratory Tests 02/04/22 17:34: Creatinine 3.67H, Platelet Count 332, Total Bilirubin 0.5 Results/Orders Lab Results Laboratory Tests Test 02/04/22 16:41 02/04/22 17:34 Range/Units Urine Color YELLOW Urine Clarity TURBID Urine pH 5.5 5-9 Urine Specific Pierce >=1.030 1.016-1.022 Urine Protein 2+ H NEGATIVE Urine Glucose (UA) NEGATIVE NEGATIVE Urine Ketones TRACE H NEGATIVE Urine Nitrite NEGATIVE NEGATIVE Urine Bilirubin 2+ H NEGATIVE Urine Urobilinogen 0.2 < = 1.0 MG/DL Urine Leukocyte Esterase 2+ H NEGATIVE Urine RBC (Auto) 2+ H NEGATIVE Urine RBC 25-50 H /HPF Urine WBC >100 H /HPF Urine Squamous Epithelial Cells >50 H /HPF Urine Crystals NONE /LPF Urine Bacteria LARGE H /HPF Urine Casts NONE /LPF Urine Mucus NEGATIVE /LPF Urine Culture Indicated YES Urine Opiates Screen NEGATIVE NEGATIVE Urine Oxycodone Screen NEGATIVE NEGATIVE Urine Methadone Screen NEGATIVE NEGATIVE Urine Propoxyphene Screen NEGATIVE NEGATIVE Urine Barbiturates Screen NEGATIVE NEGATIVE Ur Tricyclic Antidepressants Screen NEGATIVE NEGATIVE Urine Phencyclidine Screen NEGATIVE NEGATIVE Urine Amphetamines Screen NEGATIVE NEGATIVE Urine Methamphetamines Screen NEGATIVE NEGATIVE Urine Benzodiazepines Screen POSITIVE H NEGATIVE Urine Cocaine Screen NEGATIVE NEGATIVE Urine Cannabinoids Screen NEGATIVE NEGATIVE White Blood Count 14.3 H 4.3-11.0 10^3/uL Red Blood Count 3.98 3.80-5.11 10^6/uL Hemoglobin 11.4 L 11.5-16.0 g/dL Hematocrit 36 35-52 % Mean Corpuscular Volume 89 80-99 fL Mean Corpuscular Hemoglobin 29 25-34 pg Mean Corpuscular Hemoglobin Concent 32 32-36 g/dL Red Cell Distribution Width 13.9 10.0-14.5 % Platelet Count 332 130-400 10^3/uL Mean Platelet Volume 9.1 9.0-12.2 fL Immature Granulocyte % (Auto) 0 % Neutrophils (%) (Auto) 69 42-75 % Lymphocytes (%) (Auto) 22 12-44 % Monocytes (%) (Auto) 7 0-12 % Eosinophils (%) (Auto) 2 0-10 % Basophils (%) (Auto) 0 0-10 % Neutrophils # (Auto) 9.8 H 1.8-7.8 10^3/uL Lymphocytes # (Auto) 3.1 1.0-4.0 10^3/uL Monocytes # (Auto) 1.0 0.0-1.0 10^3/uL Eosinophils # (Auto) 0.2 0.0-0.3 10^3/uL Basophils # (Auto) 0.0 0.0-0.1 10^3/uL Immature Granulocyte # (Auto) 0.1 0.0-0.1 10^3/uL Neutrophils % (Manual) 60 % Lymphocytes % (Manual) 31 % Monocytes % (Manual) 6 % Eosinophils % (Manual) 1 % Band Neutrophils 2 % Platelet Estimate NORMAL Poikilocytosis SLIGHT Elliptocytes SLIGHT Sodium Level 133 L 135-145 MMOL/L Potassium Level 5.0 3.6-5.0 MMOL/L Chloride Level 97 L 98-107 MMOL/L Carbon Dioxide Level 23 21-32 MMOL/L Anion Gap 13 5-14 MMOL/L Blood Urea Nitrogen 35 H 7-18 MG/DL Creatinine 3.67 H 0.60-1.30 MG/DL Estimat Glomerular Filtration Rate 14 BUN/Creatinine Ratio 10 Glucose Level 96 70-105 MG/DL Calcium Level 9.7 8.5-10.1 MG/DL Corrected Calcium 9.5 8.5-10.1 MG/DL Total Bilirubin 0.5 0.1-1.0 MG/DL Aspartate Amino Transf (AST/SGOT) 17 5-34 U/L Alanine Aminotransferase (ALT/SGPT) 14 0-55 U/L Alkaline Phosphatase 75 40-136 U/L Total Protein 7.2 6.4-8.2 GM/DL Albumin 4.3 3.2-4.5 GM/DL My Orders Orders - VIANNEY BRYSON MD Drug Screen Stat (Urine) (02/04/22 16:56) Ua Culture If Indicated (02/04/22 16:56) Cbc With Automated Diff (02/04/22 17:26) Comprehensive Metabolic Panel (02/04/22 17:26) Drug Screen Stat (Urine) (02/04/22 17:26) Ct Abdomen/Pelvis Wo (02/04/22 17:27) Ed Iv/Invasive Line Start (02/04/22 17:27) Ns Iv 1000 Ml (Sodium Chloride 0.9%) (02/04/22 17:30) Ketorolac Injection (Toradol Injection) (02/04/22 17:30) Urine Culture (02/04/22 16:41) Manual Differential (02/04/22 17:34) Medications Given in ED Current Medications Medications Dose Ordered Sig/Ren Route Start Time Stop Time Status Last Admin Dose Admin Ketorolac Tromethamine 15 mg ONCE ONCE IVP 02/04/22 17:30 02/04/22 17:31 DC 02/04/22 17:42 15 MG Vital Signs/I&O 02/04/22 16:41 Temp 36.7 Pulse 88 Resp 16 B/P (MAP) 79/55 (63) Pulse Ox 95 O2 Delivery Room Air Capillary Refill : Progress Note : Progress Note 1. ACUTE CYSTITIS: - CT ABD & PELVIS: unremarkable except for L5-S1 stenosis - UA is due for leukocyte esterase, WBC, RBC, bacteria - CBC shows an elevated white count of 14.3 with a left shift - NS IVF x 1L/ Toradol 15mg iv, and Ceftriaxone 1gm iv in ER - Prescription for Cefpodoxime 100mg bid for 7 days - Follow up with PCP in the next 5 to 7 days regarding the stenosis - Advised adequate hydration -The patient was seen in the ED, and treated appropriately to presentation at a specific point in time. Patient is informed that there is a possibility that disease and illness can evolve and change in acuity rapidly or slowly after patient is discharged from the ER. Precautionary advice given to the patient for immediate return to ER if symptoms worsen or do not resolve, and to seek emergency care sooner rather than later. Pt also advised on the importance of PCP follow up and compliance with management and follow up plan with PCP and/or specialist, as this is part of the management plan. Pt verbally expressed understanding. Diagnostic Imaging Diagonstic Imaging: CT Comments [facility]. [place], [place] NAME: NICKIE CHUA MED REC#: [id number] PT STATUS: REG ER : 1965 PHYSICIAN: VIANNEY BRYSON MD ADMIT DATE: 02/04/22/ER FS Signed Date of Exam:02/04/22 CT ABDOMEN/PELVIS WO PROCEDURE: CT abdomen and pelvis without contrast. TECHNIQUE: Multiple contiguous axial images were obtained through the abdomen and pelvis without the use of intravenous contrast. Auto Exposure Controls were utilized during the CT exam to meet ALARA standards for radiation dose reduction. INDICATION: Low abdominal pain. COMPARISON: 01/17/2022. FINDINGS: The lung bases demonstrate mild discoid atelectasis but no findings of pneumonia or an effusion. There is no edema. There is no pericardial collection. There are coronary calcifications. The patient is status post cholecystectomy. There is a small focus of focal fatty infiltration demonstrated adjacent to the gallbladder fossa. There are no findings of abnormal biliary dilatation. The pancreas is normal. There is no peripancreatic fat stranding or fluid. There is no ductal dilatation. The spleen is normal in size. There is no adrenal mass. The kidneys are nonobstructed. There is no perinephric fat stranding. There are no findings of hydronephrosis or urolithiasis. The ureters are normal in caliber. There is no stone within the bladder which is decompressed. There are no findings of abnormal distention of the stomach. There is no small bowel dilation or abnormal small bowel thickening. The colon is decompressed. There are no findings of focal colonic thickening or pericolonic fat stranding. There is some gaseous distention of the transverse colon. Otherwise, there is a small to moderate degree of stool within the colon. There are previous operative changes of anterior abdominal wall hernia repair. There is no free air, free fluid or abscess. The patient is status post hysterectomy. There is no pelvic mass. There are no pathologically enlarged lymph nodes. There are atherosclerotic calcifications within a normal caliber aorta. There is a grade 1 anterolisthesis of L5 on S1 due to pars defect with a severe loss of disc space height at that level as well as severe bilateral L5-S1 foraminal stenosis. IMPRESSION: 1. No CT findings of an acute inflammatory or obstructive process within the abdomen or pelvis 2. Prior cholecystectomy, hysterectomy, appendectomy and ventral abdominal hernia repair. 3. No findings of bowel obstruction. 4. No hydronephrosis or urolithiasis 5. No free fluid, free air, abscess or inflammatory fat stranding in the omentum or mesentery. 6. L5 pars defects with grade 1 anterolisthesis of L5 on S1. There is severe narrowing of both neural foramen at that level. Dictated by: Dictated on workstation # [id number] Dict: 02/04/22 1744 Trans: 02/04/22 1824 [facility] [id number] Interpreted by: REYNA SMALL MD Electronically signed by: REYNA SMALL MD 02/04/22 1824 Departure Impression Primary Impression: Acute cystitis with hematuria Disposition: HOME, SELF-CARE Condition: Stable Departure-Patient Inst. Referrals: ADDY SMART APRN (PCP) Primary Care Physician [facility] (Family) Primary Care Physician Patient Instructions: Acute Cystitis (DC) Add. Discharge Instructions: - Prescription for Cefpodoxime 100mg bid for 7 days - Follow up with PCP in the next 5 to 7 days regarding the L5-S1 stenosis of the spine, and may need neurology referral from PCP - Advised adequate hydration All discharge instructions reviewed with patient and/or family. Voiced understanding. Scripts Cefpodoxime Proxetil (Cefpodoxime Proxetil) 100 Mg Tablet 100 MG PO BID for 7 Days, #14 TAB Prov: VIANNEY BRYSON MD 02/04/22 VIANNEY BRYSON MD Feb 04, 2022 16:42
[2022-02-04 17:13] LABS: BILIRUBIN,URINE 2+ (NEGATIVE); CLARITY,URINE TURBID; COLOR,URINE YELLOW; GLUCOSE, URINE (UA) NEGATIVE (NEGATIVE); KETONES,URINE TRACE (NEGATIVE); LEUKOCYTE ESTERASE ,URINE 2+ (NEGATIVE); NITRITE,URINE NEGATIVE (NEGATIVE); PH,URINE 5.5 (5-9); PROTEIN,URINE 2+ (NEGATIVE)
[2022-02-04] MEDS ORDERED: NS IV 1000 ML 1,000 ML IV SCH (17:30)
[2022-02-04] MEDS ORDERED: KETOROLAC 30 MG/ML VIAL IVP ONE (17:30)
[2022-02-04 17:34] LABS: BACTERIA,URINE LARGE /HPF; RBC,URINE 25-50 /HPF; SQUAMOUS EPITHELIAL CELL,UR >50 /HPF; WBC,URINE >100 /HPF
[2022-02-04 17:36] LABS: AMPHETAMINE SCREEN, URINE NEGATIVE (NEGATIVE); BARBITURATE SCREEN URINE NEGATIVE (NEGATIVE); BENZODIAZEPINES SCREEN URINE POSITIVE (NEGATIVE); CANNABINOID SCREEN, URINE NEGATIVE (NEGATIVE); COCAINE SCREEN URINE NEGATIVE (NEGATIVE); METHADONE STAT NEGATIVE (NEGATIVE); OPIATE SCREEN URINE NEGATIVE (NEGATIVE); OXYCODONE STAT NEGATIVE (NEGATIVE); PROPOXYPHENE STAT NEGATIVE (NEGATIVE); TRICYCLIC ANTIDEPRESSANTS SCRE NEGATIVE (NEGATIVE)
[2022-02-04 17:42] LABS: BASOPHILS % (AUTO) 0 % (0-10); EOSINOPHILS # (AUTO) 0.2 10^3/uL (0.0-0.3); EOSINOPHILS % (AUTO) 2 % (0-10); HEMATOCRIT 36 % (35-52); HEMOGLOBIN 11.4 g/dL (11.5-16.0); LYMPHOCYTES # (AUTO) 3.1 10^3/uL (1.0-4.0); LYMPHOCYTES % (AUTO) 22 % (12-44); MEAN CORPUSCULAR HEMOGLOBIN 29 pg (25-34); MEAN CORPUSCULAR HGB CONC 32 g/dL (32-36); MEAN CORPUSCULAR VOLUME 89 fL (80-99); MEAN PLATELET VOLUME 9.1 fL (9.0-12.2); MONOCYTES % (AUTO) 7 % (0-12); NEUTROPHILS # (AUTO) 9.8 10^3/uL (1.8-7.8); NEUTROPHILS % (AUTO) 69 % (42-75); PLATELET COUNT 332 10^3/uL (130-400); WHITE BLOOD COUNT 14.3 10^3/uL (4.3-11.0)
[2022-02-04 18:03] LABS: ALBUMIN 4.3 GM/DL (3.2-4.5); BILIRUBIN,TOTAL 0.5 MG/DL (0.1-1.0); CALCIUM 9.7 MG/DL (8.5-10.1); CREATININE SERUM 3.67 MG/DL (0.60-1.30); TOTAL PROTEIN 7.2 GM/DL (6.4-8.2)
--- NOTE | 2022-02-04 18:08 | Diagnostic Imaging Report ---
PROCEDURE: CT abdomen and pelvis without contrast. TECHNIQUE: Multiple contiguous axial images were obtained through the abdomen and pelvis without the use of intravenous contrast. Auto Exposure Controls were utilized during the CT exam to meet ALARA standards for radiation dose reduction. INDICATION: Low abdominal pain. COMPARISON: 01/17/2022. FINDINGS: The lung bases demonstrate mild discoid atelectasis but no findings of pneumonia or an effusion. There is no edema. There is no pericardial collection. There are coronary calcifications. The patient is status post cholecystectomy. There is a small focus of focal fatty infiltration demonstrated adjacent to the gallbladder fossa. There are no findings of abnormal biliary dilatation. The pancreas is normal. There is no peripancreatic fat stranding or fluid. There is no ductal dilatation. The spleen is normal in size. There is no adrenal mass. The kidneys are nonobstructed. There is no perinephric fat stranding. There are no findings of hydronephrosis or urolithiasis. The ureters are normal in caliber. There is no stone within the bladder which is decompressed. There are no findings of abnormal distention of the stomach. There is no small bowel dilation or abnormal small bowel thickening. The colon is decompressed. There are no findings of focal colonic thickening or pericolonic fat stranding. There is some gaseous distention of the transverse colon. Otherwise, there is a small to moderate degree of stool within the colon. There are previous operative changes of anterior abdominal wall hernia repair. There is no free air, free fluid or abscess. The patient is status post hysterectomy. There is no pelvic mass. There are no pathologically enlarged lymph nodes. There are atherosclerotic calcifications within a normal caliber aorta. There is a grade 1 anterolisthesis of L5 on S1 due to pars defect with a severe loss of disc space height at that level as well as severe bilateral L5-S1 foraminal stenosis. IMPRESSION: 1. No CT findings of an acute inflammatory or obstructive process within the abdomen or pelvis 2. Prior cholecystectomy, hysterectomy, appendectomy and ventral abdominal hernia repair. 3. No findings of bowel obstruction. 4. No hydronephrosis or urolithiasis 5. No free fluid, free air, abscess or inflammatory fat stranding in the omentum or mesentery. 6. L5 pars defects with grade 1 anterolisthesis of L5 on S1. There is severe narrowing of both neural foramen at that level. Dictated by: Dictated on workstation # [id number]
[2022-02-04 18:10] LABS: BAND NEUTROPHILS 2 %; EOSINOPHILS % (MANUAL) 1 %; LYMPHOCYTES % (MANUAL) 31 %; MONOCYTES % (MANUAL) 6 %; NEUTROPHILS % (MANUAL) 60 %; PLATELET ESTIMATE NORMAL; POIKILOCYTOSIS SLIGHT
[2022-02-04 18:11] LABS: ELLIPT/OVALOCYTES SLIGHT
[2022-02-04] MEDS ORDERED: cefTRIAXone 1 GM PRE-MIX 50 ML IV ONE ×2 (19:00→19:03)
[2022-02-04] MEDS ORDERED: CEFP100T2 PO (19:08)
[2022-02-04] MEDS ORDERED: ACETAMINOPHEN 325 MG TABLET PO ONE (19:15)
[2022-02-04 19:20] VITALS: BP 97/76
== END 2022-02-04 19:23 | disposition home or self-care (01) ==
LOC: EDUNIT# 16:26 → ER FS 16:27
DX: N30.01 Acute cystitis with hematuria (principal)
CPT/HCPCS: 36415; 74176; 80053; 80306; 81000; 85007; 85027; 87077; 87088; 87184; 87186

== ENCOUNTER → 2022-02-28 | Outpatient (CLI) | payer OTHER, MEDICAID ==
[~2022-02-28] MED LIST changes: +CEFP100T2 PO
--- NOTE | 2022-02-28 11:26 | Diagnostic Imaging Report ---
INDICATION: Globus sensation. Procedure was performed in conjunction with speech pathology. Video fluoroscopy was performed during swallowing of barium multiple consistencies. One minute of fluoroscopic time was utilized. The patient ingested thin barium as well as applesauce and cracker consistency. The patient also had nectar consistency. There were 2 episodes of laryngeal penetration during the swallowing of large boluses of thin liquid. No aspiration was observed. No residue is seen. All other consistencies were unremarkable. IMPRESSION: Penetration with thin liquid with large boluses. No aspiration was observed. Dictated by: Dictated on workstation # [id number]
== END ==
LOC: RAD 09:45
PROVIDERS: ATTEND Surgery
DX: R10.13 Epigastric pain (principal)
CPT/HCPCS: 74230

== ENCOUNTER 2022-03-26 12:49 | Inpatient (IN) | payer MEDICAID, MEDICARE ==
[~2022-03-26] VITALS: Ht 155 cm; Wt 84.6 kg
[~2022-03-26 12:49] MED LIST changes: +POTA-177 PO; -POTA10TA37 PO
[2022-03-26] MEDS ORDERED: NS IV 1000 ML 1,000 ML IV STA ×2 (13:03→15:32)
[2022-03-26 13:16] LABS: BASOPHILS % (AUTO) 0 % (0-10); EOSINOPHILS # (AUTO) 0.4 10^3/uL (0.0-0.3); EOSINOPHILS % (AUTO) 4 % (0-10); HEMATOCRIT 34 % (35-52); HEMOGLOBIN 10.4 g/dL (11.5-16.0); LYMPHOCYTES # (AUTO) 2.4 10^3/uL (1.0-4.0); LYMPHOCYTES % (AUTO) 28 % (12-44); MEAN CORPUSCULAR HEMOGLOBIN 28 pg (25-34); MEAN CORPUSCULAR HGB CONC 31 g/dL (32-36); MEAN CORPUSCULAR VOLUME 92 fL (80-99); MONOCYTES # (AUTO) 0.6 10^3/uL (0.0-1.0); MONOCYTES % (AUTO) 7 % (0-12); NEUTROPHILS # (AUTO) 5.1 10^3/uL (1.8-7.8); NEUTROPHILS % (AUTO) 60 % (42-75); PLATELET COUNT 378 10^3/uL (130-400); WHITE BLOOD COUNT 8.5 10^3/uL (4.3-11.0)
--- NOTE | 2022-03-26 13:19 | Diagnostic Imaging Report ---
INDICATION: cough, altered mental status COMPARISON: 04/29/2021. FINDINGS: Single frontal view of the chest demonstrates normal heart size and pulmonary vascularity. The lungs show minimal left basilar atelectasis, but are otherwise clear. No large pleural effusion or pneumothorax is seen. The visualized osseous structures show no acute abnormalities. IMPRESSION: 1. No acute cardiopulmonary process. Dictated by: Dictated on workstation # [id number]
--- NOTE | 2022-03-26 13:29 | ED General ---
General Stated Complaint: SLURRED SPEECH; AMS Source of Information: Patient History of Present Illness Date Seen by Provider: Mar 26, 2022 Time Seen by Provider: 12:50 Initial Comments 56-year-old female presenting with complaints of altered mental status and having difficulty concentrating since 630 this morning. She is also having a headache that is generalized. She denies any numbness or weakness in her arms or legs. She has been somnolent and slurring her words at times. She has no chest pain, abdominal pain, fever, chills. She states that she does have pain with urination. Timing/Duration: 4-6 Hours Severity: Moderate Modifying Factors: worse with Movement Associated Systoms: No Chest Pain, No Cough, No Diaphoresis, No Fever/Chills; Headaches; No Loss of Appetite, No Malaise, No Nausea/Vomiting, No Rash, No Seizure; Shortness of Air; No Syncope, No Weakness Allergies and Home Medications Allergies Coded Allergies: Penicillins (Verified Allergy, Unknown, 03/02/20) hydrocodone (Verified Allergy, Unknown, 12/05/19) latex (Verified Allergy, Unknown, 12/05/19) morphine (Verified Allergy, Unknown, 12/05/19) Uncoded Allergies: PLASTIC TAPE (Allergy, Mild, 12/05/19) Patient Home Medication List Home Medication List Reviewed: Yes Albuterol Sulfate (Proair Hfa) 1 Puff Puff, 2 PUFF PO Q4H PRN for SHORTNESS OF BREATH, (Reported) Entered as Reported by: RANDA BALDWIN on 12/06/19 0837 Atorvastatin Calcium (Atorvastatin Calcium) 10 Mg Tablet, 10 MG PO DAILY, (Reported) Entered as Reported by: RANDA BALDWIN on 01/09/22 1447 Budesonide/Formoterol Fumarate (Symbicort 160-4.5 Mcg Inhaler) 160 Mcg-4.5 Mcg/Actuation Hfa.aer.ad, 2 PUFF IH HS, (Reported) Entered as Reported by: RANDA BALDWIN on 01/09/22 1447 Calcium Carbonate (Calcium) 500 Mg Calcium (1250 Mg) Tablet, 500 MG PO DAILY, (Reported) Entered as Reported by: RANDA BALDWIN on 01/09/22 1449 Cariprazine Hydrochloride (Vraylar) 3 Mg Capsule, 3 MG PO HS, (Reported) Entered as Reported by: RANDA BALDWIN on 12/06/19 08 Cefpodoxime Proxetil (Cefpodoxime Proxetil) 100 Mg Tablet, 100 MG PO BID Prescribed by: VIANNEY BRYSON MD on 02/04/22 190 Cetirizine HCl (Zyrtec) 10 Mg Tablet, 10 MG PO HS, (Reported) Entered as Reported by: SARAH BARRY on 01/16/20 110 Diazepam (Diazepam) 5 Mg Tablet, 5 MG PO BID, (Reported) Entered as Reported by: RANDA BALDWIN on 12/06/19836 Dicyclomine HCl (Dicyclomine HCl) 10 Mg Capsule, 10 MG PO Q6H PRN for abdominal pain/cramping Prescribed by: MAGALIE JOSÉ on 01/17/22 224 Docusate Sodium (Stool Softener) 100 Mg Capsule, 200 MG PO DAILY, (Reported) Entered as Reported by: RANDA BALDWIN on 01/09/22 144 Estradiol (Estrace Tablet) 1 Mg Tablet, 1 MG PO DAILY, (Reported) Entered as Reported by: SARAH BARRY on 01/16/20 110 Ferrous Sulfate (Ferrous Sulfate) 325 Mg (65 Mg Iron) Tablet, 325 MG PO HS, (Reported) Entered as Reported by: RANDA BALDWIN on 01/09/22 144 Furosemide (Furosemide) 40 Mg Tablet, 40 MG PO DAILY, (Reported) Entered as Reported by: RANDA BALDWIN on 01/09/22 144 Gabapentin (Gabapentin) 800 Mg Tablet, 800 MG PO TID, (Reported) Entered as Reported by: RANDA BALDWIN on 01/09/22 144 Ipratropium/Albuterol Sulfate (Iprat-Albut 0.5-3(2.5) mg/3 ml) 0.5 Mg-3 Mg (2.5 Mg Base)/3 Ml Ampul.neb, 3 ML IH Q6H PRN for SHORTNESS OF BREATH, (Reported) Entered as Reported by: RANDA BALDWIN on 01/09/22 144 L.acidoph & Paracasei,B.lactis (Probiotic) 10 Billion Cell Capsule, 1 EACH PO DAILY, (Reported) Entered as Reported by: RANDA BALDWIN on 01/09/22 1449 Lisinopril (Lisinopril) 10 Mg Tablet, 10 MG PO HS, (Reported) Entered as Reported by: RANDA BALDWIN on 01/09/22 144 Westfir Carbonate (Westfir Carbonate) 300 Mg Capsule, 300 MG PO BID, (Reported) Entered as Reported by: RANDA BALDWIN on 12/06/19 08 Metformin HCl (Metformin HCl) 1,000 Mg Tablet, 1,000 MG PO DAILY, (Reported) Entered as Reported by: RANDA BALDWIN on 01/09/22 144 Metformin HCl (Metformin HCl) 1,000 Mg Tablet, 500 MG PO HS, (Reported) Entered as Reported by: RANDA BALDWIN on 01/09/22 144 Metoclopramide HCl (Metoclopramide HCl) 5 Mg Tablet, 5 MG PO Q6H PRN for NAUSEA/VOMITING Prescribed by: MAGALIE JOSÉ on 01/17/222240 Montelukast Sodium (Montelukast Sodium) 10 Mg Tablet, 10 MG PO DAILY, (Reported) Entered as Reported by: RANDA BALDWIN on 12/06/19836 Oxycodone HCl/Acetaminophen (Oxycodone-Acetaminophen 5-325) 5 Mg-325 Mg Tablet, 1 EA PO BID PRN for PAIN-MODERATE (5-7), (Reported) Entered as Reported by: RANDA BALDWIN on 01/09/22 144 Potassium Chloride (Potassium Chloride) 20 Meq Tablet.er, 20 MEQ PO DAILY, (Reported) Entered as Reported by: RANDA BALDWIN on 01/09/22 145 Rivaroxaban (Xarelto) 20 Mg Tablet, 20 MG PO HS, (Reported) Entered as Reported by: RANDA BALDWIN on 01/09/22 144 Ropinirole HCl (Ropinirole HCl) 3 Mg Tablet, 3 MG PO 2200, (Reported) Entered as Reported by: RANDA BALDWIN on 01/09/22 144 Semaglutide (Ozempic) 0.25 Mg/0.2 Ml Pen.injctr, 0.25 MG SQ TUE, (Reported) Entered as Reported by: RANDA BALDWIN on 01/09/22 144 Tiotropium Aspen (Spiriva) 18 Mcg Aerp, 1 INH IH HS, (Reported) Entered as Reported by: RANDA BALDWIN on 01/09/221446 Tramadol HCl (Tramadol HCl) 50 Mg Tablet, 100 MG PO TID, (Reported) Entered as Reported by: RANDA BALDWIN on 01/09/221446 Trazodone HCl (Trazodone HCl) 100 Mg Tablet, 100-200 MG PO HS PRN for SLEEP, (Reported) Entered as Reported by: RANDA BALDWIN on 01/09/221446 Ubrogepant (Ubrelvy) 100 Mg Tablet, 100 MG PO UD PRN for HEADACHE, (Reported) Entered as Reported by: RANDA BALDWIN on 01/09/221446 Review of Systems Review of Systems Constitutional: No chills, No fever EENTM: No ear pain, No blurred vision, No eye pain, No nose congestion Respiratory: cough, short of breath Cardiovascular: No chest pain Gastrointestinal: No abdominal pain, No nausea, No vomiting Genitourinary: dysuria, pain Musculoskeletal: no symptoms reported Skin: No rash Psychiatric/Neurological: See HPI, Headache Hematologic/Lymphatic: No Symptoms Reported Past Qykrpnt-Gqnyst-Aazsep Hx Immunizations Up To Date First/Initial COVID19 Vaccinat: 09/2020 Second COVID19 Vaccination Musa: 09/2020 Seasonal Allergies Seasonal Allergies: No Past Medical History Surgery/Hospitalization HX: COPD/asthma, CHF Surgeries: Yes Abdominal, Appendectomy, Gallbladder Respiratory: Yes Asthma, COPD Currently Using CPAP: No Currently Using BIPAP: No Cardiac: Yes (CHF) Hypertension Neurological: Yes (fibromyalgia) STONE HAND History: 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 Genitourinary: No Kidney Stones, UTI-Chronic Gastrointestinal: Yes Gastroesophageal Reflux, Gall Bladder Disease Musculoskeletal: Yes Arthritis, Fibromyalgia Endocrine: Yes Diabetes, Non-Insulin dep HEENT: No Loss of Vision: Denies Hearing Impairment: Denies Cancer: No Psychosocial: No Anxiety, Depression Integumentary: No Blood Disorders: Yes (Factor V deficiency) Adverse Reaction/Blood Tranf: No Family Medical History Cardiovascular disease 19 MOTHER Colon cancer 19 FATHER G8 BROTHER G8 BROTHER Diabetes mellitus 19 MOTHER G8 BROTHER Heart Disease, Cancer, Diabetes Physical Exam Vital Signs Vital Signs - First Documented 03/26/22 12:49 Temp 37.3 Pulse 86 Resp 18 B/P (MAP) 98/57 Pulse Ox 98 O2 Delivery Room Air Capillary Refill : Height, Weight, BMI Height: 5'2.00" Weight: 180lbs. oz. 81.179712hl; 35.00 BMI Method:Estimated General Appearance: No Apparent Distress, Other (Patient is slow to answer questions and at times has slurred speech. 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 Norm as Tested, Other (Slow to answer questions and has intermittent slurred speech) Skin: Normal Color, Warm/Dry Focused Exam Lactate Level 03/26/22 13:00: Lactic Acid Level 2.91*H 03/26/22 15:11: Lactic Acid Level 1.76 Lactic Acid Level Laboratory Tests Test 03/26/22 13:00 03/26/22 15:11 Lactic Acid Level 2.91 MMOL/L (0.50-2.00) *H 1.76 MMOL/L (0.50-2.00) Progress/Results/Core Measures Suspected Sepsis SIRS Temperature: Pulse: Respiratory Rate: Laboratory Tests 03/26/22 13:00: White Blood Count 8.5 Blood Pressure / Mean: 03/26/22 13:00: Lactic Acid Level 2.91*H 03/26/22 15:11: Lactic Acid Level 1.76 Laboratory Tests 03/26/22 13:00: Creatinine 2.04H, Platelet Count 378, Total Bilirubin 0.2 Results/Orders Lab Results Laboratory Tests Test 03/26/22 12:52 03/26/22 13:00 03/26/22 13:30 03/26/22 15:11 Range/Units Glucometer 120 H 70-110 MG/DL White Blood Count 8.5 4.3-11.0 10^3/uL Red Blood Count 3.71 L 3.80-5.11 10^6/uL Hemoglobin 10.4 L 11.5-16.0 g/dL Hematocrit 34 L 35-52 % Mean Corpuscular Volume 92 80-99 fL Mean Corpuscular Hemoglobin 28 25-34 pg Mean Corpuscular Hemoglobin Concent 31 L 32-36 g/dL Red Cell Distribution Width 14.2 10.0-14.5 % Platelet Count 378 130-400 10^3/uL Mean Platelet Volume 9.0 9.0-12.2 fL Immature Granulocyte % (Auto) 0 % Neutrophils (%) (Auto) 60 42-75 % Lymphocytes (%) (Auto) 28 12-44 % Monocytes (%) (Auto) 7 0-12 % Eosinophils (%) (Auto) 4 0-10 % Basophils (%) (Auto) 0 0-10 % Neutrophils # (Auto) 5.1 1.8-7.8 10^3/uL Lymphocytes # (Auto) 2.4 1.0-4.0 10^3/uL Monocytes # (Auto) 0.6 0.0-1.0 10^3/uL Eosinophils # (Auto) 0.4 H 0.0-0.3 10^3/uL Basophils # (Auto) 0.0 0.0-0.1 10^3/uL Immature Granulocyte # (Auto) 0.0 0.0-0.1 10^3/uL Sodium Level 139 135-145 MMOL/L Potassium Level 4.4 3.6-5.0 MMOL/L Chloride Level 105 98-107 MMOL/L Carbon Dioxide Level 23 21-32 MMOL/L Anion Gap 11 5-14 MMOL/L Blood Urea Nitrogen 36 H 7-18 MG/DL Creatinine 2.04 H 0.60-1.30 MG/DL Estimat Glomerular Filtration Rate 28 BUN/Creatinine Ratio 18 Glucose Level 112 H 70-105 MG/DL Lactic Acid Level 2.91 *H 1.76 0.50-2.00 MMOL/L Calcium Level 9.4 8.5-10.1 MG/DL Corrected Calcium 9.5 8.5-10.1 MG/DL Total Bilirubin 0.2 0.1-1.0 MG/DL Aspartate Amino Transf (AST/SGOT) 20 5-34 U/L Alanine Aminotransferase (ALT/SGPT) 15 0-55 U/L Alkaline Phosphatase 95 40-136 U/L C-Reactive Protein 9.74 H <0.50 MG/DL Total Protein 7.3 6.4-8.2 GM/DL Albumin 3.9 3.2-4.5 GM/DL Serum Alcohol < 10 <10 MG/DL Urine Color YELLOW Urine Clarity CLEAR Urine pH 6.0 5-9 Urine Specific [place] 1.015 L 1.016-1.022 Urine Protein NEGATIVE NEGATIVE Urine Glucose (UA) NEGATIVE NEGATIVE Urine Ketones NEGATIVE NEGATIVE Urine Nitrite NEGATIVE NEGATIVE Urine Bilirubin NEGATIVE NEGATIVE Urine Urobilinogen 0.2 < = 1.0 MG/DL Urine Leukocyte Esterase TRACE H NEGATIVE Urine RBC (Auto) 1+ H NEGATIVE Urine RBC NONE /HPF Urine WBC 2-5 /HPF Urine Squamous Epithelial Cells 0-2 /HPF Urine Crystals NONE /LPF Urine Bacteria FEW H /HPF Urine Casts NONE /LPF Urine Mucus NEGATIVE /LPF Urine Culture Indicated NO Urine Opiates Screen NEGATIVE NEGATIVE Urine Oxycodone Screen NEGATIVE NEGATIVE Urine Methadone Screen NEGATIVE NEGATIVE Urine Propoxyphene Screen NEGATIVE NEGATIVE Urine Barbiturates Screen NEGATIVE NEGATIVE Ur Tricyclic Antidepressants Screen NEGATIVE NEGATIVE Urine Phencyclidine Screen NEGATIVE NEGATIVE Urine Amphetamines Screen NEGATIVE NEGATIVE Urine Methamphetamines Screen NEGATIVE NEGATIVE Urine Benzodiazepines Screen POSITIVE H NEGATIVE Urine Cocaine Screen NEGATIVE NEGATIVE Urine Cannabinoids Screen NEGATIVE NEGATIVE My Orders Orders - MAGALIE JOSÉ MD Cbc With Automated Diff (03/26/22 13:03) Comprehensive Metabolic Panel (03/26/22 13:03) Blood Culture (03/26/22 13:03) Ua Culture If Indicated (03/26/22 13:03) Chest 1 View Ap/Pa Only (03/26/22 13:03) Ed Iv/Invasive Line Start (03/26/22 13:03) Crp Fs (03/26/22 13:03) Lactic Acid Analyzer (03/26/22 13:03) Ns Iv 1000 Ml (Sodium Chloride 0.9%) (03/26/22 13:03) Drug Screen Stat (Urine) (03/26/22 13:03) Alcohol (03/26/22 13:03) Ct Head Wo (03/26/22 13:03) Levofloxacin 500 Mg/100 Ml Iv (Levaquin (03/26/22 14:12) Meropenem (Merrem 1000 Mg) (03/26/22 15:32) Ns Iv 1000 Ml (Sodium Chloride 0.9%) (03/26/22 15:32) Ed Admission (Communication) (03/26/22 15:33) Vital Signs/I&O 03/26/22 12:49 Temp 37.3 Pulse 86 Resp 18 B/P (MAP) 98/57 Pulse Ox 98 O2 Delivery Room Air Capillary Refill : Progress Note #1: Progress Note Order CT scan of her head since she was having a headache. Check basic labs and Accu-Chek. Urinalysis to look for signs of infection. Give normal saline 1 L IV fluid bolus for hydration. Progress Note #2: Progress Note No acute findings on the CT scan of her head for her chest x-ray. Her labs show stable CBC without elevated white blood cell count. Chemistry does show elevated lactic acid to 2.91. She has chronic renal insufficiency with a creatinine of 2.04 which is improved from February. She has elevated CRP. Her urinalysis did show leukocyte esterase with some bacteria. She was getting normal saline IV fluid for her elevated lactic acid and based off of prior urine cultures she had Klebsiella that was resistant to multiple drugs but was susceptible to Levaquin. A dose of Levaquin was administered. 1522 d/w Dr. Desir housing liaison for [facility]. Will admit for sepsis with elevated Lactic acid and UTI. She wanted to add Meropenem for antibiotic coverage and while it was ordered the pharmacy had not restocked any of the antibiotic here so she wi ll need that once she arrives in [place]. Blood pressure doing better after IVF for hydration. Continue IVF at 150 ml/hr. Progress Note #3: Progress Note Patient is a little more coherent after obtaining IV fluids and treatment in the ED. Counseled on admission and continued fluids. Blood pressure did improve after hydration here in the emergency department. Diagnostic Imaging Diagonstic Imaging: Xray Plain Films/CT/US/NM/MRI: chest Comments [facility]. [place], [place] NAME: NICKIE CHUA [facility] REC#: [id number] PT STATUS: REG ER : 1965 PHYSICIAN: MAGALIE JOSÉ MD ADMIT DATE: 03/26/22/ER FS Draft Date of Exam:03/26/22 CHEST 1 VIEW AP/PA ONLY INDICATION: cough, altered mental status COMPARISON: 04/29/2021. FINDINGS: Single frontal view of the chest demonstrates normal heart size and pulmonary vascularity. The lungs show minimal left basilar atelectasis, but are otherwise clear. No large pleural effusion or pneumothorax is seen. The visualized osseous structures show no acute abnormalities. IMPRESSION: 1. No acute cardiopulmonary process. Dictated on workstation # [id number] Dict: 03/26/22 1315 Trans: 03/26/22 1318 AS [id number] Interpreted by: HEBERT LOCKHART MD Electronically signed by: Diagonstic Imaging: CT Plain Films/CT/US/NM/MRI: head Comments [facility] [place] NAME: NICKIE CHUA [facility] REC#: [id number] PT STATUS: REG ER : 1965 PHYSICIAN: MAGALIE JOSÉ MD ADMIT DATE: 03/26/22/ER FS Draft Date of Exam:03/26/22 CT HEAD WO PROCEDURE: CT head without contrast. TECHNIQUE: Multiple contiguous axial images were obtained through the brain without the use of intravenous contrast. Auto Exposure Controls were utilized during the CT exam to meet ALARA standards for radiation dose reduction. INDICATION: Altered mental status and headache. COMPARISON: 01/23/2022. FINDINGS: CT images of the head were obtained. The ventricles and sulci are within normal limits for size. There is no intracranial hemorrhage identified. There is no abnormal mass effect or shift of the midline structures. IMPRESSION: Unremarkable CT of the head. Dictated on workstation # [id number] Dict: 03/26/22 1338 Trans: 03/26/22 1345 [id number] Interpreted by: TIBURCIO POE MD Electronically signed by: Departure Communication (Admissions) Time/Spoke to Admitting Phy: 15:22 d/w Dr. Desir for admit with her sepsis for UTI and still having difficulty concentrating. Given Levaquin from prior culture results of UA but will add Meropenem for additional coverage. Continue with IVF for hydration. Impression Primary Impression: Acute cystitis without hematuria Additional Impressions: Sepsis Qualified Codes: A41.9 - Sepsis, unspecified organism Hypotension Qualified Codes: I95.9 - Hypotension, unspecified Disposition: 30 STILL A PATIENT Condition: Stable Admissions Decision to Admit Reason: Admit from ER (General) Decision to Admit/Date: Mar 26, 2022 Time/Decision to Admit Time: 15:22 Departure-Patient Inst. Referrals: ADDY SMART APRN (PCP) Primary Care Physician [facility] (Family) Primary Care Physician MAGALIE JOSÉ MD Mar 26, 2022 13:29
[2022-03-26 13:40] LABS: BUN/CREATININE RATIO 18; CARBON DIOXIDE 23 MMOL/L (21-32); CHLORIDE 105 MMOL/L (98-107); CREATININE SERUM 2.04 MG/DL (0.60-1.30); GFR ESTIMATED 28; POTASSIUM 4.4 MMOL/L (3.6-5.0); SODIUM 139 MMOL/L (135-145)
[2022-03-26 13:41] LABS: ALANINE AMINOTRANSFERASE 15 U/L (0-55); ALBUMIN 3.9 GM/DL (3.2-4.5); ALKALINE PHOSPHATASE 95 U/L (40-136); BILIRUBIN,TOTAL 0.2 MG/DL (0.1-1.0); CALCIUM 9.4 MG/DL (8.5-10.1); GLUCOSE 112 MG/DL (70-105); TOTAL PROTEIN 7.3 GM/DL (6.4-8.2)
--- NOTE | 2022-03-26 13:45 | Diagnostic Imaging Report ---
PROCEDURE: CT head without contrast. TECHNIQUE: Multiple contiguous axial images were obtained through the brain without the use of intravenous contrast. Auto Exposure Controls were utilized during the CT exam to meet ALARA standards for radiation dose reduction. INDICATION: Altered mental status and headache. COMPARISON: 01/23/2022. FINDINGS: CT images of the head were obtained. The ventricles and sulci are within normal limits for size. There is no intracranial hemorrhage identified. There is no abnormal mass effect or shift of the midline structures. IMPRESSION: Unremarkable CT of the head. Dictated by: Dictated on workstation # [id number]
[2022-03-26 13:49] LABS: BILIRUBIN,URINE NEGATIVE (NEGATIVE); CLARITY,URINE CLEAR; COLOR,URINE YELLOW; GLUCOSE, URINE (UA) NEGATIVE (NEGATIVE); KETONES,URINE NEGATIVE (NEGATIVE); LEUKOCYTE ESTERASE ,URINE TRACE (NEGATIVE); NITRITE,URINE NEGATIVE (NEGATIVE); PROTEIN,URINE NEGATIVE (NEGATIVE)
[2022-03-26 14:12] LABS: BACTERIA,URINE FEW /HPF; SQUAMOUS EPITHELIAL CELL,UR 0-2 /HPF
[2022-03-26 14:13] LABS: AMPHETAMINE SCREEN, URINE NEGATIVE (NEGATIVE); BARBITURATE SCREEN URINE NEGATIVE (NEGATIVE); BENZODIAZEPINES SCREEN URINE POSITIVE (NEGATIVE); CANNABINOID SCREEN, URINE NEGATIVE (NEGATIVE); COCAINE SCREEN URINE NEGATIVE (NEGATIVE); METHADONE STAT NEGATIVE (NEGATIVE); OPIATE SCREEN URINE NEGATIVE (NEGATIVE); OXYCODONE STAT NEGATIVE (NEGATIVE); PROPOXYPHENE STAT NEGATIVE (NEGATIVE); TRICYCLIC ANTIDEPRESSANTS SCRE NEGATIVE (NEGATIVE)
[2022-03-26] MEDS ORDERED: MEROPENEM 1,000 MG in NS (IVPB) 100 ML IV STA (15:32)
[2022-03-26] MEDS ORDERED: MEROPENEM 1,000 MG in NS (IVPB) 100 ML IV SCH (18:15)
[2022-03-26] MEDS ORDERED: ANTACID SUSP 30 ML UDC (MYLANTA) PO PRN (18:15)
[2022-03-26] MEDS ORDERED: ONDANSETRON 4 MG (ZOFRAN) ORAL DISSOLVE TAB PO PRN (18:15)
[2022-03-26] MEDS ORDERED: diphenhydrAMINE 50 MG/ML INJ (BENADRYL) IVP PRN (18:15)
[2022-03-26] MEDS ORDERED: HYDROmorphone 2 MG/ML VIAL (DILAUDID) IVP PRN (18:15)
[2022-03-26] MEDS ORDERED: cloNIDine 0.1 MG (CATAPRES) TAB PO PRN (18:15)
[2022-03-26] MEDS ORDERED: ONDANSETRON 4 MG/2 ML (SDV) Z0FRAN IV PRN (18:15)
[2022-03-26] MEDS ORDERED: polyethylene glycoL POWDER 17 GM (MIRALAX) PACK PO PRN (18:15)
[2022-03-26] MEDS ORDERED: diphenhydrAMINE 25 MG TAB (BENADRYL) PO PRN (18:15)
[2022-03-26] MEDS ORDERED: BISACODYL 10 MG SUPP (DULCOLAX) PR PRN (18:15)
[2022-03-26] MEDS ORDERED: ACETAMINOPHEN 325 MG TABLET PO PRN (18:15)
[2022-03-26] MEDS ORDERED: LORazepam 0.5 MG (ATIVAN) TABLET PO PRN (18:15)
[2022-03-26 18:33] VITALS: BP 140/86
[2022-03-26 18:35] VITALS: BP 140/86
[2022-03-26] MEDS: NS IV 1000 ML 1,000 ML IV SCH (18:58)
[2022-03-26] MEDS: ENOXAPARIN 40 MG/0.4 ML (LOVENOX) SYR SC SCH (18:58)
[2022-03-26] MEDS: MEROPENEM 500 MG/NS 100 ML IVPB IV SCH ×2 (19:02)
[2022-03-26 19:24] VITALS: BP 147/77
[2022-03-26] MEDS: inSUlin ASPART (NovoLOG) 1 UNIT/0.01 ML (CHARGE PER UNIT) SC SCH (21:07)
[2022-03-26] MEDS: DOCUSATE SODIUM 100 MG (COLACE) CAP PO SCH (21:36)
[2022-03-26] MEDS: MELATONIN 3 MG TABLET PO PRN (22:51)
[2022-03-27] MEDS: RT-ALBUTEROL SULF 2.5 MG/3 ML PRE-MIX VIAL INH PRN ×2 (01:25→20:24)
[2022-03-27] MEDS: MEROPENEM 500 MG/NS 100 ML IVPB IV SCH ×8 (03:15→21:15)
[2022-03-27 04:30] VITALS: BP 109/70
[2022-03-27 05:32] LABS: BASOPHILS % (AUTO) 0 % (0-10); EOSINOPHILS # (AUTO) 0.4 10^3/uL (0.0-0.3); EOSINOPHILS % (AUTO) 5 % (0-10); HEMATOCRIT 33 % (35-52); HEMOGLOBIN 10.1 g/dL (11.5-16.0); LYMPHOCYTES # (AUTO) 2.2 10^3/uL (1.0-4.0); LYMPHOCYTES % (AUTO) 29 % (12-44); MEAN CORPUSCULAR HEMOGLOBIN 29 pg (25-34); MEAN CORPUSCULAR HGB CONC 31 g/dL (32-36); MEAN CORPUSCULAR VOLUME 93 fL (80-99); MEAN PLATELET VOLUME 9.3 fL (9.0-12.2); MONOCYTES # (AUTO) 0.5 10^3/uL (0.0-1.0); MONOCYTES % (AUTO) 7 % (0-12); NEUTROPHILS # (AUTO) 4.3 10^3/uL (1.8-7.8); NEUTROPHILS % (AUTO) 59 % (42-75); PLATELET COUNT 363 10^3/uL (130-400); WHITE BLOOD COUNT 7.4 10^3/uL (4.3-11.0)
[2022-03-27 05:43] LABS: ALBUMIN 3.6 GM/DL (3.2-4.5); POTASSIUM 3.9 MMOL/L (3.6-5.0)
[2022-03-27 05:44] LABS: CALCIUM 9.4 MG/DL (8.5-10.1)
[2022-03-27 05:46] LABS: TOTAL PROTEIN 6.8 GM/DL (6.4-8.2)
[2022-03-27 05:47] LABS: BILIRUBIN,TOTAL 0.3 MG/DL (0.1-1.0)
[2022-03-27 05:49] LABS: CREATININE SERUM 1.13 MG/DL (0.60-1.30)
[2022-03-27] MEDS: inSUlin ASPART (NovoLOG) 1 UNIT/0.01 ML (CHARGE PER UNIT) SC SCH ×4 (05:52→21:13)
[2022-03-27 08:07] VITALS: BP 101/58
[2022-03-27] MEDS: DOCUSATE SODIUM 100 MG (COLACE) CAP PO SCH ×2 (08:12→21:13)
[2022-03-27] MEDS: NS IV 1000 ML 1,000 ML IV SCH (08:12)
--- NOTE | 2022-03-27 10:26 | Physical Therapy Evaluation ---
PT Evaluation-General Medical Diagnosis Admission Date Mar 26, 2022 at 18:03 Medical Diagnosis: acute cystitis without hematuria/hypotension/sepsis Onset Date: Mar 26, 2022 Therapy Diagnosis Therapy Diagnosis: debility/weakness Height/Weight Height (Feet): 5 Height (Inches): 2.00 Weight (Pounds): 180 Precautions Precautions/Isolations: Fall Prevention, Standard Precautions Referral Physician: Karlee Reason for Referral: Evaluation/Treatment Medical History Pertinent Medical History: COPD, DM, GERD, Heart Failure, HTN History of Falls (past yr): Yes Prior Surgery (last 100 days): No Current History ER secondary to AMS, slurred speech Reviewed History: Yes Social History Home: Single Level Prior Prior Level of Function SCALE: Activities may be completed with or without assistive devices. 3-Eduuasgvop-umagbmx completes the activity by him/herself with no assistance from a helper. 5-Set-up or Clean-up Assistance-helper sets up or cleans up; patient completes activity. [place] assists only prior to or following the activity. 4-Supervision or Touching Assistance-helper provides verbal cues and/or touching/steadying and/or contact guard assistance as patient completes activity. Assistance may be provided throughout the activity or intermittently. 3-Partial/Moderate Assistance-helper does LESS THAN HALF the effort. [place] lifts, holds or supports trunk or limbs, but provides less than half the effort. 2-Substantial/Maximal Assistance-helper does MORE THAN HALF the effort. [place] lifts or holds trunk or limbs and provides more than half the effort. 9-Dljjqzglq-soeomj does ALL the effort. Patient does none of the effort to complete the activity. Or, the assistance of 2 or more helpers is required for the patient to complete the activity. If activity was not attempted, code reason: 7-Patient Refused. 9-Not Applicable-not attempted and the patient did not perform the activity before the current illness, exacerbation or injury. 10-Not Attempted due to Environmental Limitations-(lack of equipment, weather restraints, etc.). 88-Not Attempted due to Medical Conditions or Safety Concerns. Bed Mobility: 6 Transfers (B,C,W/C): 6 Gait: 6 Stairs: 6 Indoor Mobility (Ambulation): Independent Stairs: Independent Prior Devices Use: Walker (PRN) PT Evaluation-Current Subjective Patient agrees to PT. Patient states, "I hope to go home. I bury my mom tomorrow." Pain Numeric Pain Scale: 0-No Pain Location: No Pain Reported Objective Patient Orientation: Normal For Age Attachments: IV ROM/Strength ROM Lower Extremities bilateral LE WFL Strength Lower Extremities 4/5 grossly bilateral LE all planes Integumentary/Posture Integumentary refer to nursing notes Bowel Incontinence: No Bladder Incontinence: No Posture WFL Neuromuscular (Tone, Coordination, Reflexes) grossly intact Sensory Vision: Wears Glasses Hearing: Functional Transfers Lying to Sitting/Side of Bed(Q: 6 Sit to Stand (QC): 6 Chair/Pkb-li-Knhvn Xfer(QC): 6 Gait Mode of Locomotion: Walk Anticipated Mode of Locomotion: Walk Walk 10 feet (QC): 6 Walk 50 ft with 2 Turns(QC): 6 Walk 150 ft (QC): 6 Distance: 275' Gait Assistive Device: FWW Comments/Gait Description safe and functional with no deviation Balance Sitting Static: Normal Sitting Dynamic: Normal Standing Static: Normal Standing Dynamic: Normal Picking up an Object (QC): 6 Assessment/Needs Patient is currently at independent [facility] with all gross motor skills safely and does not require skilled PT intervention. Nursing aware. Rehab Potential: Fair PT Plan Treatment/Plan Treatment Plan: Discontinue PT, goals met Treatment Duration: Mar 27, 2022 Frequency: 1 time per week Estimated Hrs Per Day: .25 hour per day Patient and/or Family Agrees t: Yes Time/GCodes Time In: 830 Time Out: 843 Total Billed Treatment Time: 13 Total Billed Treatment 1 visit [facility] 13 min OXANA POPE PT Mar 27, 2022 10:26
[2022-03-27 11:29] VITALS: BP 113/64
--- NOTE | 2022-03-27 12:53 | History & Physical-Hospitalist ---
QUINTEN CAMPOS 03/27/22 1253: History of Present Illness HPI/Chief Complaint Patient is a 56 year old female with past medical history of CRF, COPD, CHF, DM, HTN presented to ER on 03-25-2022 with complaints of altered mental status and having difficulty concentrating since 630 that morning. She was reported to have a generalized headache. She denies any numbness or weakness in her arms or legs at that time. She was somnolent and slurring her words. She denied chest pain, abdominal pain, fever, chills. She stated that she has pain with urination. Wh ile in ER she had a chest xray and head CT performed, both of which returned unremarkable. She was found to by hypotensive, with an elevated lactic acid and CRP. Patient was given normal saline. While in the ER she was found to have a UTI. She had a prior UTI that grew Klebsiella and was resistant except to Levofloxacin. She was then started on Levofloxacin and meropenem. Patient was subsequently transferred to [place] for management. As of today per nurse, her mental status has improved. She is now alert and orientated X3. Patient states she was SOB this morning and received a breathing treatment which improved her breathing. Her hypotension has been slowly improving with her IVF. She feels like she is much improved and would like to go home. Source: patient, RN/MD Date Seen 03/27/22 Attending Physician Katie Rios Aprn PCP Admitting Physician: Chantal Desir DO Attending Physician: Chantal Desir DO Referring Physician Date of Admission Mar 26, 2022 at 18:03 Home Medications & Allergies Home Medications Reviewed patient Home Medication Reconciliation performed by pharmacy medication reconciliations molding process technician and/or nursing. Patients Allergies have been reviewed. Allergies Allergies Coded Allergies Penicillins (Verified Allergy, Unknown, 03/02/20) hydrocodone (Verified Allergy, Unknown, PT HAS REC OXYCODONE IN THE PAST, 03/27/22) latex (Verified Allergy, Unknown, 12/05/19) morphine (Verified Allergy, Unknown, PT HAS REC OXYCODONE IN THE PAST, ) Uncoded Allergies PLASTIC TAPE ( Allergy, Mild, 12/05/19) Past Nakvldb-Mbwcpo-Crnaub Hx Patient Social History Employed/Student: retired Tobacco Use?: No Smoking Status: Former Smoker Smokeless Tobacco Frequency: Former User Use of E-Cig and/or Vaping dev: No Substance use?: No Alcohol Use?: No Pt feels they are or have been: No Immunizations Up To Date Date of Influenza Vaccine: Apr 08, 2020 First/Initial COVID19 Vaccinat: 09/2020 Second COVID19 Vaccination Musa: 09/2020 Date of Pneumonia Vaccine: May 06, 2019 Seasonal Allergies Seasonal Allergies: No Current Status status: No status: No Advance Directives: No Communicates: Verbally Primary Language: Belgian Preferred Spoken Language: Belgian Sensory deficits: Vision impairment Implanted or Applied Medical D: None Past Medical History Surgeries: Abdominal, Appendectomy, Gallbladder Asthma, COPD Currently Using CPAP: No Currently Using BIPAP: No 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: 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 Kidney Stones, UTI-Chronic Gastroesophageal Reflux, Gall Bladder Disease Arthritis, Fibromyalgia Diabetes, Non-Insulin dep Loss of Vision: Denies Hearing Impairment: Denies Anxiety, Depression Blood Disorders: Yes (Factor V deficiency) Adverse Reaction/Blood Tranf: No PMHx: DMII Asthma COPD/emphysema HTN Fibromyalgia CHF DVT and PE Factor V leiden Anxiety SurgHx: Hernia repair x 4 Epigastric "growth removed" Cholecystectomy 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 Appendectomy EGD Colonoscopy, benign polyp 2020 Family Medical History Cardiovascular disease 19 MOTHER Colon cancer 19 FATHER G8 BROTHER G8 BROTHER Diabetes mellitus 19 MOTHER G8 BROTHER Heart Disease, Cancer, Diabetes Review of Systems Constitutional: No chills, No diaphoresis; weakness EENTM: No hoarseness, No mouth pain Respiratory: cough, short of breath Cardiovascular: No chest pain, No palpitations Gastrointestinal: No abdominal pain Genitourinary: dysuria Musculoskeletal: joint pain; No joint swelling Skin: change in color, change in hair/nails Psychiatric/Neurological: Denies Anxiety, Denies Depressed Physical Exam Physical Exam Vital Signs Vital Signs - First Documented 03/26/22 18:35 FiO2 21 Capillary Refill : Less Than 3 Seconds Height, Weight, BMI Height: 5'2.00" Weight: 180lbs. oz. [id number]; 35.21 BMI Method:Estimated General Appearance: No Apparent Distress, Obese HEENT: PERRL/EOMI; No Scleral Icterus (L), No Scleral Icterus (R) Neck: Full Range of Motion, Normal Inspection Respiratory: Chest Non Tender, Lungs Clear Cardiovascular: Regular Rate, Rhythm, No Edema, No Gallop Gastrointestinal: Non Tender, Soft Rectal: Deferred Back: Normal Inspection, No CVA Tenderness Extremity: Normal Capillary Refill, Normal Inspection Neurologic/Psychiatric: Alert, Oriented x3, Normal Mood/Affect Skin: Normal Color, Warm/Dry Lymphatic: No Adenopathy Results Results/Procedures Labs Laboratory Tests 03/26/22 13:00 03/27/22 05:20 Patient resulted labs reviewed. 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 Creatinine went from 2 to 1 and Hep-Lock IV fluid today. Broad-spectrum antibiotics initiated for presumed ESBL. Source: patient, RN/MD Exam Limitations: no limitations Time Seen by a Provider: 10:00 Past Uvbihjf-Aqqriv-Oevrxw Hx Patient Social History Marrital Status: single Employed/Student: unemployed Family Medical History Cardiovascular disease 19 MOTHER Colon cancer 19 FATHER G8 BROTHER G8 BROTHER Diabetes mellitus 19 MOTHER G8 BROTHER Review of Systems Constitutional: see HPI, weakness Physical Exam Physical Exam General Appearance: No Apparent Distress, Chronically ill, Obese Eyes: Right Eye Normal Inspection, Right Eye PERRL HEENT: PERRL/EOMI, Normal ENT Inspection, Pharynx Normal, Moist Mucous Membranes Neck: Full Range of Motion, Normal Inspection, Non Tender Respiratory: Chest Non Tender, Lungs Clear, Normal Breath Sounds, No Accessory Muscle Use, No Respiratory Distress Cardiovascular: Regular Rate, Rhythm, No Edema, No Gallop, No JVD, No Murmur, N ormal Peripheral Pulses Gastrointestinal: Normal Bowel Sounds, No Organomegaly, No Pulsatile Mass, Non Tender, Soft Back: Normal Inspection, No CVA Tenderness, No Vertebral Tenderness Extremity: Normal Capillary Refill, Normal Inspection, Normal Range of Motion, Non Tender, No Calf Tenderness, No Pedal Edema Neurologic/Psychiatric: Alert, Oriented x3, No Motor/Sensory Deficits, Normal Mood/Affect Skin: Normal Color, Warm/Dry Lymphatic: No Adenopathy Assessment/Plan Admission Diagnosis Assessment: UTI presumed ESBL Acute kidney injury creatinine 2.0 now 1.0 Weakness Plan: Supportive care Await urine culture Admission Status: Inpatient Order (span 2 midnights) Reason for Inpatient Admission: ESBL urine culture Supervisory-Addendum Brief Verification & Attestation Participated in pt care: history, MDM, physical Personally performed: exam, history, MDM, supervision of care Care discussed with: Medical Student Procedures: n/a Results interpretation: Verified all documentation Verification and Attestation of Medical Student E/M Service A medical student performed and documented this service in my presence. I review ed and verified all information documented by the medical student and made modifications to such information, when appropriate. I personally performed the physical exam and medical decision making. Chantal Desir, Mar 28, 2022,05:21 QUINTEN CAMPOS Mar 27, 2022 12:53 CHANTAL DESIR DO Mar 28, 2022 05:21
--- NOTE | 2022-03-27 13:22 | Occupational Therapy Eval ---
OT Evaluation-General/PLF Medical Diagnosis Admission Date Mar 26, 2022 at 18:03 Medical Diagnosis: acute cystitis without hematuria/hypotension/sepsis Onset Date: Mar 26, 2022 Therapy Diagnosis Therapy Diagnosis: n/a Height/Weight Height (Feet): 5 Height (Inches): 2.00 Weight (Pounds): 180 Precautions Precautions/Isolations: Fall Prevention, Standard Precautions Referral Physician: Karlee Referral Reason: Evaluation/Treatment Medical History Pertinent Medical History: COPD, DM, GERD, Heart Failure, HTN Current History Pt presented to ER with AMS and slurred speech. CT of head revealed no acute abnormalities. Per patient, she lives with her brother and niece in a single story home. She was indep with adls and her niece completes all the iadls. Pt reports owning both a walker and cane but only uses PRN. Reviewed History: Yes Social History Home: Single Level Current Living Status: Other Family Entry Into Home: Stairs With Railing ADL-Prior Level of Function SCALE: Activities may be completed with or without assistive devices. 5-Xpenzqpozp-eixiwuc completes the activity by him/herself with no assistance from a helper. 5-Set-up or Clean-up Assistance-helper sets up or cleans up; patient completes activity. Garrard assists only prior to or following the activity. 4-Supervision or Touching Assistance-helper provides verbal cues and/or touching/steadying and/or contact guard assistance as patient completes activity. Assistance may be provided throughout the activity or intermittently. 3-Partial/Moderate Assistance-helper does LESS THAN HALF the effort. Garrard lifts, holds or supports trunk or limbs, but provides less than half the effort. 2-Substantial/Maximal Assistance-helper does MORE THAN HALF the effort. Garrard lifts or holds trunk or limbs and provides more than half the effort. 8-Ojuteabjz-qozxus does ALL the effort. Patient does none of the effort to complete the activity. Or, the assistance of 2 or more helpers is required for the patient to complete the activity. If activity was not attempted, code reason: 7-Patient Refused. 9-Not Applicable-not attempted and the patient did not perform the activity before the current illness, exacerbation or injury. 10-Not Attempted due to Environmental Limitations-(lack of equipment, weather restraints, etc.). 88-Not Attempted due to Medical Conditions or Safety Concerns. Self Care: Independent Functional Cognition: Independent DME/Equipment: Shower Drive Self: Yes OT Current Status Subjective Pt denies pain. "I'm feeling much better than yesterday. I didn't even know who I was yesterday." Appearance Pt returned to sitting on side of bed, all needs within reach. Mental Status/Objective Patient Orientation: Person, Place, Situation Current Hearing Aids: No Hand Dominance: Left Upper Extremity ROM WFL Upper Extremity Strength WFL ADL-Treatment Eating (QC): 6 Lower Body Dressing (QC): 6 On/Off Footwear (QC): 6 Toileting Hygiene (QC): 6 Pt sitting on side of bed at OT arrival. She was able to don bilateral essence hose and shoes without difficulty. She independently ambulated to/from bathroom without AD. No unsteadiness exhibited. She was able to perform all steps of toileting without assist. Pt denies any self care concerns at this time. No skilled OT services warranted, OT will discharge. Education OT Patient Education: Purpose of tx/functional activities Teaching Recipient: Patient Teaching Methods: Discussion Response to Teaching: Return Demonstration OT Community Services Manager Goals Fpc Goals 1=Demonstrate adherence to instructed precautions during ADL tasks. 2=Patient will verbalize/demonstrate understanding of assistive devices/modifications for ADL. 3=Patient will improve strength/tolerance for activity to enable patient to perform ADL's. OT Education/Plan Problem List/Assessment Assessment: No Skilled OT Needs ID'd Discharge Recommendations Plan/Recommendations: Discontinue OT Therapy Discharge Recommendati: Home & Family Treatment Plan/Plan of Care Treatment,Training & Education: Yes Patient would benefit from OT for education, treatment and training to promote independence in ADL's, mobility, safety and/or upper extremity function for ADL's. Plan of Care: ADL Retraining Treatment Duration: Mar 27, 2022 Frequency: 1 time per week Estimated Hrs Per Day: .25 hour per day Agreement: Yes Time/GCodes Start Time: 12:45 Stop Time: 12:58 Total Time Billed (hr/min): 13 Billed Treatment Time 1 visit Alicia Smith OT Mar 27, 2022 13:22
[2022-03-27] MEDS ORDERED: LUBI8CAP5 PO (15:07)
[2022-03-27 15:58] VITALS: BP 129/76
[2022-03-27] MEDS: ENOXAPARIN 40 MG/0.4 ML (LOVENOX) SYR SC SCH (17:26)
[2022-03-27 19:26] VITALS: BP 129/81
[2022-03-27] MEDS: MELATONIN 3 MG TABLET PO PRN (21:13)
[2022-03-28] VITALS: BP 105/55
[2022-03-28] MEDS: MEROPENEM 500 MG/NS 100 ML IVPB IV SCH ×4 (03:04→09:01)
[2022-03-28 03:51] VITALS: BP 118/80
--- NOTE | 2022-03-28 05:56 | Discharge Summary ---
Discharge Summary Hospital Course Was the Problem List Reviewed?: Yes Problems/Dx: (1) Acute cystitis with hematuria Status: Acute (2) KRISTIE (acute kidney injury) Status: Resolved Hospital Course Date of Admission: Mar 26, 2022 at 18:03 Admission Diagnosis : [facility] Date of Discharge: 03/28/22 Discharge Diagnosis: KRISTIE, Abnl UA Hospital Course: Patient is a 56 year old female with past medical history of CRF, COPD, CHF, DM, HTN presented to ER on 03-26-2022 with complaints of altered mental status and h aving difficulty concentrating since 630 that morning. She was reported to have a generalized headache. She denied any numbness or weakness in her arms or legs at that time. She was somnolent and slurring her words. She denied chest pain, abdominal pain, fever, chills. She stated that she was having pain with urination. While in ER she had a chest xray and head CT performed, both of which returned unremarkable. She was found to by hypotensive, with an elevated lactic acid and CRP. Patient was given normal saline. While in the ER she was found to have a UTI. She had a prior UTI that grew Klebsiella and was resistant except to Levofloxacin. She was then started on Levofloxacin and meropenem. Patient was subsequently transferred to [place] for management. She made improvements in her mental status on according to the nurse on . She was alert and orientated X3, she was still having mild dysuria but not other complaints at that time. Her blood pressure began to stabilize, ranging 110-130 systolic and was maintained on IVF until 03-27-2022. She was consulted to see PT and was found to be in good condition. As of today (03-28-2022) her mental status is alert and orientated X3. Patient states her SOB and dysuria are improving. She feels her strength in increasing and feels well enough to go home. QUINTEN CAMPOS Labs and Pending Lab Test: Laboratory Tests 03/27/22 11:07: Glucometer 134H 03/27/22 15:43: Glucometer 81 03/27/22 20:09: Glucometer 87 Microbiology 03/26/22 Blood Culture - Preliminary, Resulted No growth Home Meds Active Reported Lubiprostone 8 Mcg Capsule 8 Mcg PO 1300 Potassium Chloride 20 Meq Tablet.er 20 Meq PO HS Probiotic (L.acidoph & Paracasei,B.lactis) 10 Billion Cell Capsule 1 Each PO DAILY Stool Softener (Docusate Sodium) 100 Mg Capsule 100 Mg PO BID Tramadol HCl 50 Mg Tablet 100 Mg PO TID PRN Ozempic (Semaglutide) 0.25 Mg/0.2 Ml Pen.injctr 0.25 Mg SQ FRI Atorvastatin Calcium 10 Mg Tablet 10 Mg PO HS Furosemide 40 Mg Tablet 40 Mg PO HS Gabapentin 800 Mg Tablet 800 Mg PO TID LAST FILLED 12-19-2021 #90/30 DAY SUPPLY Iprat-Albut 0.5-3(2.5) mg/3 ml (Ipratropium/Albuterol Sulfate) 0.5 Mg-3 Mg (2.5 Mg Base)/3 Ml Ampul.neb 3 Ml IH Q6H PRN Lisinopril 10 Mg Tablet 10 Mg PO DAILY Metformin HCl 1,000 Mg Tablet 500 Mg PO HS TAKES (500MG) TAB Metformin HCl 1,000 Mg Tablet 1,000 Mg PO DAILY Ropinirole HCl 3 Mg Tablet 3 Mg PO 2200 Spiriva (Tiotropium [place]) 18 Mcg Aerp 1 Inh IH HS Symbicort 160-4.5 Mcg Inhaler (Budesonide/Formoterol Fumarate) 160 Mcg-4.5 Mcg/Actuation Hfa.aer.ad 2 Puff IH 1300 Trazodone HCl 100 Mg Tablet 100 Mg PO HS Xarelto (Rivaroxaban) 20 Mg Tablet 20 Mg PO DAILY Oxycodone-Acetaminophen 5-325 (Oxycodone HCl/Acetaminophen) 5 Mg-325 Mg Tablet 1 Ea PO BID PRN Ferrous Sulfate 325 Mg (65 Mg Iron) Tablet 325 Mg PO HS Ubrelvy (Ubrogepant) 100 Mg Tablet 100 Mg PO UD PRN TAKE 1 DOSE NEEDED AND THEN MAY TAKE SECOND DOSE AT LEAST 2 HOURS AFTER FIRST DOSE Estrace Tablet (Estradiol) 1 Mg Tablet 1 Mg PO DAILY LAST FILLED 08-19-2021 #90/90 DAY SUPPLY Zyrtec (Cetirizine HCl) 10 Mg Tablet 10 Mg PO HS Montelukast Sodium 10 Mg Tablet 10 Mg PO HS Diazepam 5 Mg Tablet 5 Mg PO BID PRN [place] Carbonate 300 Mg Capsule 300 Mg PO 1300 Vraylar (Cariprazine Hydrochloride) 3 Mg Capsule 3 Mg PO DAILY Proair Hfa (Albuterol Sulfate) 1 Puff Puff 2 Puff PO Q4H PRN Assessment/Pt Instructions PCP 1 week Discharge Planning: <30 minutes discharge planning Discharge Instructions Discharge Diet: No Restrictions Discharge Physical Examination Vital Signs Vital Signs Date Time Temp Pulse Resp B/P (MAP) Pulse Ox O2 Delivery O2 Flow Rate FiO2 03/28/22 03:51 37.0 69 16 118/80 (93) 96 Room Air 03/26/22 18:35 21 General Appearance: No Apparent Distress, WD/WN, Chronically ill Allergies: Coded Allergies: Penicillins (Verified Allergy, Unknown, 03/02/20) hydrocodone (Verified Allergy, Unknown, PT HAS REC OXYCODONE IN THE PAST, 03/27/22) latex (Verified Allergy, Unknown, 12/05/19) morphine (Verified Allergy, Unknown, PT HAS REC OXYCODONE IN THE PAST, 03/27/22) Uncoded Allergies: PLASTIC TAPE (Allergy, Mild, 12/05/19) Discharge Summary Date of Admission Mar 26, 2022 at 18:03 Date of Discharge Discharge Date: Mar 28, 2022 Admission Diagnosis Assessment: UTI presumed ESBL Acute kidney injury creatinine 2.0 now 1.0 Weakness Plan: Supportive care Await urine culture DARION VERAS DO Mar 28, 2022 05:56
[2022-03-28] MEDS ORDERED: RT-ALBUTEROL/IPRATROPIUM 3 ML (DUONEB) VIAL IH PRN (06:00)
[2022-03-28] MEDS ORDERED: NON-FORMULARY MEDICATION 1 EA EA (Semaglutide (Ozempic) 0.25 MG) SQ SCH (06:00)
[2022-03-28] MEDS ORDERED: oxyCODONE/APAP 5/325MG (PERCOCET 5) TABLET PO PRN (06:00)
[2022-03-28] MEDS ORDERED: NON-FORMULARY MEDICATION 1 EA EA (Ubrogepant (Ubrelvy) 100 MG) PO PRN (06:00)
[2022-03-28] MEDS ORDERED: RT-ALBUTEROL SULF 2.5 MG/3 ML PRE-MIX VIAL IH PRN (06:00)
[2022-03-28] MEDS: inSUlin ASPART (NovoLOG) 1 UNIT/0.01 ML (CHARGE PER UNIT) SC SCH (06:21)
[2022-03-28 06:41] LABS: BASOPHILS % (AUTO) 0 % (0-10); EOSINOPHILS # (AUTO) 0.4 10^3/uL (0.0-0.3); EOSINOPHILS % (AUTO) 6 % (0-10); HEMATOCRIT 33 % (35-52); HEMOGLOBIN 10.4 g/dL (11.5-16.0); LYMPHOCYTES # (AUTO) 2.9 10^3/uL (1.0-4.0); LYMPHOCYTES % (AUTO) 38 % (12-44); MEAN CORPUSCULAR HEMOGLOBIN 28 pg (25-34); MEAN CORPUSCULAR HGB CONC 31 g/dL (32-36); MEAN CORPUSCULAR VOLUME 91 fL (80-99); MEAN PLATELET VOLUME 11.1 fL (9.0-12.2); MONOCYTES # (AUTO) 0.6 10^3/uL (0.0-1.0); MONOCYTES % (AUTO) 8 % (0-12); NEUTROPHILS # (AUTO) 3.6 10^3/uL (1.8-7.8); NEUTROPHILS % (AUTO) 48 % (42-75); PLATELET COUNT 233 10^3/uL (130-400); WHITE BLOOD COUNT 7.4 10^3/uL (4.3-11.0)
[2022-03-28 06:57] LABS: ALBUMIN 3.6 GM/DL (3.2-4.5); BILIRUBIN,TOTAL 0.2 MG/DL (0.1-1.0); CALCIUM 9.5 MG/DL (8.5-10.1); CREATININE SERUM 0.91 MG/DL (0.60-1.30); POTASSIUM 3.7 MMOL/L (3.6-5.0); TOTAL PROTEIN 6.9 GM/DL (6.4-8.2)
[2022-03-28 08:14] VITALS: BP 130/69
[2022-03-28] MEDS ORDERED: ESTRADIOL 1 MG TAB (ESTRACE) PO SCH (09:00)
[2022-03-28] MEDS ORDERED: RIVAROXABAN 20 MG TABLET (XARELTO) PO SCH (09:00)
[2022-03-28] MEDS: DOCUSATE SODIUM 100 MG (COLACE) CAP PO SCH (09:00)
[2022-03-28] MEDS ORDERED: NON-FORMULARY MEDICATION 1 EA EA (Cariprazine Hydrochloride (Vraylar) 3 MG) PO SCH (09:00)
[2022-03-28] MEDS ORDERED: metFORMIN 500 MG (GLUCOPHAGE) TAB PO SCH ×2 (09:00→21:00)
[2022-03-28] MEDS ORDERED: DOCUSATE SODIUM 100 MG (COLACE) CAP PO SCH (09:00)
[2022-03-28] MEDS ORDERED: GABAPENTIN 400 MG (NEURONTIN) CAP PO SCH (09:00)
[2022-03-28] MEDS ORDERED: lisINopril 10 MG (PRINIVIL) TABLET PO SCH (09:00)
[2022-03-28] MEDS ORDERED: LACTOBACILLUS ACIDOPHILUS (PROBIOTIC) CAPSULE PO SCH (09:00)
[2022-03-28] MEDS: RT-ALBUTEROL SULF 2.5 MG/3 ML PRE-MIX VIAL INH PRN (09:41)
--- NOTE | 2022-03-28 12:08 | Progress Note ---
QUINTEN CAMPOS 03/28/22 1208: Progress Note Patient is a 56 year old female with past medical history of CRF, COPD, CHF, DM, HTN presented to ER on 03-26-2022 with complaints of altered mental status and having difficulty concentrating since 630 that morning. She was reported to have a generalized headache. She denied any numbness or weakness in her arms or legs at that time. She was somnolent and slurring her words. She denied chest pain, abdominal pain, fever, chills. She stated that she was having pain with urination. While in ER she had a chest xray and head CT performed, both of which returned unremarkable. She was found to by hypotensive, with an elevated lactic acid and CRP. Patient was given normal saline. While in the ER she was found to have a UTI. She had a prior UTI that grew Klebsiella and was resistant except to Levofloxacin. She was then started on Levofloxacin and meropenem. Patient was subsequently transferred to [place] for management. She made improvements in her mental status on according to the nurse on . She was alert and orientated X3, she was still having mild dysuria but not other complaints at that time. Her blood pressure began to stabilize, ranging 110-130 systolic and was maintained on IVF until 03-27-2022. She was consulted to see PT and was found to be in good condition. As of today (03-28-2022) her mental status is alert and orientated X3. Patient states her SOB and dysuria are improving. She feels her strength in increasing and feels well enough to go home. CHANTAL VERAS DO 03/29/22 0744: Supervisory-Addendum Brief Verification & Attestation Participated in pt care: history, MDM, physical Personally performed: exam, history, MDM, supervision of care Care discussed with: Medical Student Procedures: n/a Results interpretation: Verified all documentation Verification and Attestation of Medical Student E/M Service A medical student performed and documented this service in my presence. I reviewed and verified all information documented by the medical student and made modifications to such information, when appropriate. I personally performed the physical exam and medical decision making. Chantal Veras Mar 29, 2022,07:44 QUINTEN CAMPOS Mar 28, 2022 12:08 CHANTAL VERAS DO Mar 29, 2022 07:44
[2022-03-28] MEDS ORDERED: LUBIPROSTONE 8 MCG PO SCH (13:00)
[2022-03-28] MEDS ORDERED: LITHIUM CARBONATE 300 MG TABLET PO SCH (13:00)
[2022-03-28] MEDS ORDERED: RT--FLUTICASONE/SALMETEROL 232-14 (AIRDUO RespiCLICK) IH SCH (13:00)
[2022-03-28] MEDS ORDERED: traZODone 100 MG (DESYREL) TAB PO SCH (21:00)
[2022-03-28] MEDS ORDERED: MONTELUKAST 10 MG (SINGULAIR) TAB PO SCH (21:00)
[2022-03-28] MEDS ORDERED: KCL 20 MEQ TAB (K-DUR) PO SCH (21:00)
[2022-03-28] MEDS ORDERED: FUROSEMIDE 40 MG (LASIX) TAB PO SCH (21:00)
[2022-03-28] MEDS ORDERED: AtorvaSTATin TABLET 10 MG TABLET PO SCH (21:00)
[2022-03-28] MEDS ORDERED: LORATADINE (CLARITIN) 10 MG TAB PO SCH (21:00)
[2022-03-28] MEDS ORDERED: UMECLIDINIUM BROMIDE (INCRUSE ELLIPTA) 7'S IH SCH (21:00)
[2022-03-28] MEDS ORDERED: FERROUS SULF 325 MG (IRON) TAB PO SCH (21:00)
[2022-03-28] MEDS ORDERED: rOPINIRole 1 MG (REQUIP) TABLET PO SCH (22:00)
== END 2022-03-28 10:30 | disposition home or self-care (01) | DRG 683 ==
LOC: EDUNIT# 12:49 → ER FS 12:50 → 4TH 18:03
PROVIDERS: ADMIT Internal Medicine; ATTEND Internal Medicine
DX: N17.9 Acute kidney failure, unspecified (principal); N30.01 Acute cystitis with hematuria; I13.0 Hypertensive heart and chronic kidney disease with heart failure and stage 1 through stage 4 chronic kidney disease, or unspecified chronic kidney disease; E87.2 Acidosis; B96.20 Unspecified Escherichia coli [E. coli] as the cause of diseases classified elsewhere; Z79.84 Long term (current) use of oral hypoglycemic drugs; Z79.899 Other long term (current) drug therapy; I50.9 Heart failure, unspecified; K21.9 Gastro-esophageal reflux disease without esophagitis; M19.90 Unspecified osteoarthritis, unspecified site; M79.7 Fibromyalgia; N18.9 Chronic kidney disease, unspecified; E11.22 Type 2 diabetes mellitus with diabetic chronic kidney disease; F41.9 Anxiety disorder, unspecified; F32.A Depression, unspecified; J43.9 Emphysema, unspecified; I95.9 Hypotension, unspecified
CPT/HCPCS: 36415; 70450; 71045; 80053; 80306; 80320; 81000; 82947; 83605; 85025; 86141; 87040; 94640; 94760

== ENCOUNTER 2022-03-31 12:36 | Emergency (ER) | payer MEDICAID ==
[~2022-03-31 12:36] MED LIST changes: +LUBI8CAP5 PO
[2022-03-31] MEDS ORDERED: ONDANSETRON 4 MG (ZOFRAN) ORAL DISSOLVE TAB PO STA (13:14)
--- NOTE | 2022-03-31 13:25 | ED General ---
General Stated Complaint: AMS Source of Information: Patient Exam Limitations: No Limitations History of Present Illness Date Seen by Provider: Mar 31, 2022 Time Seen by Provider: 12:45 Initial Comments Patient is a 56-year-old who presents with dysuria and nausea and sweats for several hours. Patient was released from [facility] 3-day prior for treatment of urinary tract infection. She denies fever, chills and vomiting. She has not filled antibiotics or taken any medications upon returning home. She denies dizziness lightheadedness chest pain palpitations, shortness of breath. No flank pain, hematuria. No abdominal pain. No other acute symptoms or complaints Timing/Duration: 1-3 Hours Severity: Mild Modifying Factors: improves with Other Associated Systoms: Other Allergies and Home Medications Allergies Coded Allergies: Penicillins (Verified Allergy, Unknown, 03/02/20) hydrocodone (Verified Allergy, Unknown, PT HAS REC OXYCODONE IN THE PAST, 03/27/22) latex (Verified Allergy, Unknown, 12/05/19) morphine (Verified Allergy, Unknown, PT HAS REC OXYCODONE IN THE PAST, 03/27/22) Uncoded Allergies: PLASTIC TAPE (Allergy, Mild, 12/05/19) Patient Home Medication List Home Medication List Reviewed: Yes Albuterol Sulfate (Proair Hfa) 1 Puff Puff, 2 PUFF PO Q4H PRN for SHORTNESS OF BREATH, (Reported) Entered as Reported by: RANDA BALDWIN on 12/06/19 0837 Atorvastatin Calcium (Atorvastatin Calcium) 10 Mg Tablet, 10 MG PO HS, (Reported) Entered as Reported by: RANDA BALDWIN on 01/09/22 1447 Budesonide/Formoterol Fumarate (Symbicort 160-4.5 Mcg Inhaler) 160 Mcg-4.5 Mcg/Actuation Hfa.aer.ad, 2 PUFF IH 1300, (Reported) Entered as Reported by: RANDA BALDWIN on 01/09/22 1447 Cariprazine Hydrochloride (Vraylar) 3 Mg Capsule, 3 MG PO DAILY, (Reported) Entered as Reported by: RANDA BALDWIN on 12/06/19 0837 Cetirizine HCl (Zyrtec) 10 Mg Tablet, 10 MG PO HS, (Reported) Entered as Reported by: SARAH BRARY on 01/16/20 1106 Diazepam (Diazepam) 5 Mg Tablet, 5 MG PO BID PRN for ANXIETY, (Reported) Entered as Reported by: RANDA BALDWIN on 12/06/19 08 Docusate Sodium (Stool Softener) 100 Mg Capsule, 100 MG PO BID, (Reported) Entered as Reported by: RANDA BALDWIN on 01/09/22 144 Estradiol (Estrace Tablet) 1 Mg Tablet, 1 MG PO DAILY, (Reported) Entered as Reported by: SARAH BARRY on 01/16/20 1106 Ferrous Sulfate (Ferrous Sulfate) 325 Mg (65 Mg Iron) Tablet, 325 MG PO HS, (Reported) Entered as Reported by: RANDA BALDWIN on 01/09/22 144 Furosemide (Furosemide) 40 Mg Tablet, 40 MG PO HS, (Reported) Entered as Reported by: RANDA BALDWIN on 01/09/22 144 Gabapentin (Gabapentin) 800 Mg Tablet, 800 MG PO TID, (Reported) Entered as Reported by: RANDA BALDWIN on 01/09/22 144 Ipratropium/Albuterol Sulfate (Iprat-Albut 0.5-3(2.5) mg/3 ml) 0.5 Mg-3 Mg (2.5 Mg Base)/3 Ml Ampul.neb, 3 ML IH Q6H PRN for SHORTNESS OF BREATH, (Reported) Entered as Reported by: RANDA BALDWIN on 01/09/22 144 L.acidoph & Paracasei,B.lactis (Probiotic) 10 Billion Cell Capsule, 1 EACH PO DAILY, (Reported) Entered as Reported by: RANDA BALDWIN on 01/09/22 144 Lisinopril (Lisinopril) 10 Mg Tablet, 10 MG PO DAILY, (Reported) Entered as Reported by: RANDA BALDWIN on 01/09/22 144 [place] Carbonate ([place] Carbonate) 300 Mg Capsule, 300 MG PO 1300, (Reported) Entered as Reported by: RANDA BALDWIN on 12/06/19 08 Lubiprostone (Lubiprostone) 8 Mcg Capsule, 8 MCG PO 1300, (Reported) Entered as Reported by: RANDA BALDWIN on 03/27/22 1507 Metformin HCl (Metformin HCl) 1,000 Mg Tablet, 1,000 MG PO DAILY, (Reported) Entered as Reported by: RANDA BALDWIN on 01/09/221446 Metformin HCl (Metformin HCl) 1,000 Mg Tablet, 500 MG PO HS, (Reported) Entered as Reported by: RANDA BALDWIN on 01/09/221446 Montelukast Sodium (Montelukast Sodium) 10 Mg Tablet, 10 MG PO HS, (Reported) Entered as Reported by: RANDA BALDWIN on 12/06/19 0837 Oxycodone HCl/Acetaminophen (Oxycodone-Acetaminophen 5-325) 5 Mg-325 Mg Tablet, 1 EA PO BID PRN for PAIN-MODERATE (5-7), (Reported) Entered as Reported by: RANDA BALDWIN on 01/09/221446 Potassium Chloride (Potassium Chloride) 20 Meq Tablet.er, 20 MEQ PO HS, (Reported) Entered as Reported by: RANDA BALDWIN on 01/09/22 145 Rivaroxaban (Xarelto) 20 Mg Tablet, 20 MG PO DAILY, (Reported) Entered as Reported by: RANDA BALDWIN on 01/09/221446 Ropinirole HCl (Ropinirole HCl) 3 Mg Tablet, 3 MG PO 0, (Reported) Entered as Reported by: RANDA BALDWIN on 01/09/221446 Semaglutide (Ozempic) 0.25 Mg/0.2 Ml Pen.injctr, 0.25 MG SQ FRI, (Reported) Entered as Reported by: RANDA BALDWIN on 01/09/221446 Tiotropium [place] (Spiriva) 18 Mcg Aerp, 1 INH IH HS, (Reported) Entered as Reported by: RANDA BALDWIN on 01/09/221446 Tramadol HCl (Tramadol HCl) 50 Mg Tablet, 100 MG PO TID PRN for PAIN-MODERATE (5-7), (Reported) Entered as Reported by: RANDA BALDWIN on 01/09/221446 Trazodone HCl (Trazodone HCl) 100 Mg Tablet, 100 MG PO HS, (Reported) Entered as Reported by: RANDA BALDWIN on 01/09/221446 Ubrogepant (Ubrelvy) 100 Mg Tablet, 100 MG PO UD PRN for HEADACHE, (Reported) Entered as Reported by: RANDA BALDWIN on 7/7/22 1447 Discontinued Medications Calcium Carbonate (Calcium) 500 Mg Calcium (1250 Mg) Tablet, 500 MG PO DAILY, (Reported) Discontinued Reason: No Longer Taking Entered as Reported by: RANDA BALDWIN on 01/09/22 1449 Cefpodoxime Proxetil (Cefpodoxime Proxetil) 100 Mg Tablet, 100 MG PO BID Discontinued Reason: Duplicate Order Prescribed by: VIANNEY BRYSON MD on 02/04/22 1908 Dicyclomine HCl (Dicyclomine HCl) 10 Mg Capsule, 10 MG PO Q6H PRN for abdominal pain/cramping Discontinued Reason: No Longer Taking Prescribed by: MAGALIE JOSÉ on 01/17/22 224 Metoclopramide HCl (Metoclopramide HCl) 5 Mg Tablet, 5 MG PO Q6H PRN for NAUSEA/VOMITING Discontinued Reason: No Longer Taking Prescribed by: MAGALIE JOSÉ on 01/17/222240 Review of Systems Review of Systems Constitutional: see HPI EENTM: see HPI Respiratory: see HPI Cardiovascular: see HPI Gastrointestinal: see HPI Genitourinary: see HPI Musculoskeletal: see HPI Skin: see HPI Psychiatric/Neurological: See HPI Hematologic/Lymphatic: See HPI Immunological/Allergic: see HPI All Other Systems Reviewed Negative Unless Noted: No Past Swywmlk-Vodxac-Krdjrp Hx Patient Social History Tobacco Use?: No Immunizations Up To Date First/Initial COVID19 Vaccinat: 09/2020 Second COVID19 Vaccination [place]: 09/2020 Seasonal Allergies Seasonal Allergies: No Past Medical History Surgery/Hospitalization HX: COPD/asthma, CHF Surgeries: Yes Abdominal, Appendectomy, Gallbladder Respiratory: Yes Asthma, COPD Currently Using CPAP: No Currently Using BIPAP: No Cardiac: Yes (CHF) Hypertension Neurological: Yes (fibromyalgia) FAMILY WORKER History: 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 Genitourinary: No Kidney Stones, UTI-Chronic Gastrointestinal: Yes Gastroesophageal Reflux, Gall Bladder Disease Musculoskeletal: Yes Arthritis, Fibromyalgia Endocrine: Yes Diabetes, Non-Insulin dep HEENT: No Loss of Vision: Denies Hearing Impairment: Denies Cancer: No Psychosocial: No Anxiety, Depression Integumentary: No Blood Disorders: Yes (Factor V deficiency) Adverse Reaction/Blood Tranf: No Family Medical History Cardiovascular disease 19 MOTHER Colon cancer 19 FATHER G8 BROTHER G8 BROTHER Diabetes mellitus 19 MOTHER G8 BROTHER Heart Disease, Cancer, Diabetes Physical Exam Vital Signs Capillary Refill : Height, Weight, BMI Height: 5'2.00" Weight: 180lbs. oz. 81.300138nm; 35.21 BMI Method:Estimated General Appearance: No Apparent Distress, WD/WN Eyes: Bilateral Eye Normal Inspection, Bilateral Eye PERRL, Bilateral Eye EOMI HEENT: PERRL/EOMI Neck: Normal Inspection, Non Tender Respiratory: Lungs Clear Gastrointestinal: No Pulsatile Mass, Soft Back: No CVA Tenderness Neurologic/Psychiatric: Alert, Oriented x3 Focused Exam Sepsis Stage: Ruled Out Progress/Results/Core Measures Suspected Sepsis SIRS Temperature: Pulse: Respiratory Rate: Blood Pressure / Mean: Results/Orders My Orders Orders - GRISELDA PEREZ DO Levofloxacin Tablet (Levaquin Tablet) (03/31/22 13:15) Ondansetron Oral Dissolve Tab (Zofran (03/31/22 13:14) Ua Culture If Indicated (03/31/22 13:15) Urine Culture (03/31/22 13:15) Vital Signs/I&O Capillary Refill : Departure Communication (Admissions) Patient with urinary tract symptoms. Culture from February 24 reviewed. Patient is sensitive to levofloxacin. First dose of antibiotics given in the emergency department. We will continue treatment and obtain urine culture with watchful waiting and close PCP follow-up. Return precautions reviewed. Patient verbalizes understanding agreement discharge instructions prior to departure Impression Primary Impression: Urinary tract infection Disposition: 01 HOME, SELF-CARE Condition: Stable Departure-Patient Inst. Decision time for Depature: 13:28 Referrals: ADDY SMART APRN (PCP) Primary Care Physician [facility] (Family) Primary Care Physician Patient Instructions: Urinary Tract Infection, Adult (DC) Add. Discharge Instructions: Please fill antibiotics and medications immediately upon leaving the emergency department and take as directed. You may take Diflucan for treatment of yeast infection upon completion on antibiotics as necessary increase daily fluid intake and follow-up with your PCP in the next 2 to 3 days for reevaluation and review of urine culture result. In the meantime if you develop new or worsening symptoms, return to the emergency department for reevaluation. Scripts Ondansetron (Ondansetron Odt) 4 Mg Tab.rapdis 4 MG PO Q6H for Nausea, #6 TAB Prov: GRISELDA PEREZ DO 03/31/22 Levofloxacin (Levofloxacin) 500 Mg Tablet 500 MG PO DAILY, #6 TAB Prov: GRISELDA PEREZ DO 03/31/22 Fluconazole (Diflucan) 100 Mg Tablet 100 MG PO DAILY, #3 TAB Prov: GRISELDA PEREZ DO 03/31/22 GRISELDA PEREZ DO Mar 31, 2022 13:25
[2022-03-31 13:31] LABS: BILIRUBIN,URINE NEGATIVE (NEGATIVE); CLARITY,URINE CLOUDY; COLOR,URINE YELLOW; GLUCOSE, URINE (UA) NEGATIVE (NEGATIVE); KETONES,URINE NEGATIVE (NEGATIVE); LEUKOCYTE ESTERASE ,URINE 1+ (NEGATIVE); NITRITE,URINE NEGATIVE (NEGATIVE); PROTEIN,URINE NEGATIVE (NEGATIVE)
[2022-03-31] MEDS ORDERED: ONDA4TAB11 PO (13:31)
[2022-03-31] MEDS ORDERED: LEVO-55 PO (13:31)
[2022-03-31] MEDS ORDERED: FLUC100T PO (13:31)
[2022-03-31 13:35] VITALS: BP 126/90
[2022-03-31 13:37] LABS: BACTERIA,URINE FEW /HPF
== END 2022-03-31 13:35 | disposition home or self-care (01) ==
LOC: EDUNIT# 12:36 → ER FS 12:38
DX: N39.0 Urinary tract infection, site not specified (principal); Z87.442 Personal history of urinary calculi; Z91.040 Latex allergy status
CPT/HCPCS: 81000; 87088; 99283

== ENCOUNTER → 2022-04-08 | Outpatient (CLI) | payer MEDICAID ==
[~2022-04-08] MED LIST changes: +FLUC100T PO; +LEVO-55 PO
--- NOTE | 2022-04-08 14:52 | Diagnostic Imaging Report ---
INDICATION: Left ankle pain AP, oblique, lateral views left ankle are obtained. No fracture or acute bony abnormality is seen. Joint spaces are unremarkable. IMPRESSION: Negative left ankle. Dictated by: Dictated on workstation # [id number]
--- NOTE | 2022-04-08 16:28 | Diagnostic Imaging Report ---
INDICATION: Left foot pain. FINDINGS: Three views of the left foot show no fracture, dislocation, or other acute abnormalities. IMPRESSION: Negative left foot. Dictated by: Dictated on workstation # [id number]
== END ==
LOC: RAD FS 10:02
PROVIDERS: ATTEND Specialist
DX: M79.672 Pain in left foot (principal); M25.572 Pain in left ankle and joints of left foot
CPT/HCPCS: 73610; 73630

== ENCOUNTER → 2022-05-12 | Outpatient (CLI) | payer MEDICAID ==
[~2022-05-12] MED LIST changes: +ALBU8.5H6 IH; +ALBU8.5H6 PO; -RT-ALBUINH IH; -RT-ALBUINH PO
[2022-05-12 12:20] LABS: BASOPHILS # (AUTO) 0.1 10^3/uL (0.0-0.1); BASOPHILS % (AUTO) 1 % (0-10); EOSINOPHILS # (AUTO) 0.5 10^3/uL (0.0-0.3); EOSINOPHILS % (AUTO) 5 % (0-10); HEMATOCRIT 36 % (35-52); HEMOGLOBIN 11.3 g/dL (11.5-16.0); LYMPHOCYTES # (AUTO) 3.1 10^3/uL (1.0-4.0); LYMPHOCYTES % (AUTO) 31 % (12-44); MEAN CORPUSCULAR HEMOGLOBIN 28 pg (25-34); MEAN CORPUSCULAR HGB CONC 31 g/dL (32-36); MEAN CORPUSCULAR VOLUME 89 fL (80-99); MEAN PLATELET VOLUME 10.7 fL (9.0-12.2); MONOCYTES # (AUTO) 0.6 10^3/uL (0.0-1.0); MONOCYTES % (AUTO) 6 % (0-12); NEUTROPHILS # (AUTO) 5.5 10^3/uL (1.8-7.8); NEUTROPHILS % (AUTO) 56 % (42-75); PLATELET COUNT 384 10^3/uL (130-400); WHITE BLOOD COUNT 9.8 10^3/uL (4.3-11.0)
[2022-05-12 12:36] LABS: POTASSIUM 3.9 MMOL/L (3.6-5.0)
[2022-05-12 12:37] LABS: ALBUMIN 4.3 GM/DL (3.2-4.5); BILIRUBIN,TOTAL 0.3 MG/DL (0.1-1.0); CALCIUM 10.1 MG/DL (8.5-10.1); CREATININE SERUM 1.02 MG/DL (0.60-1.30); TOTAL PROTEIN 8.2 GM/DL (6.4-8.2)
== END ==
LOC: LAB FS 11:47
PROVIDERS: ATTEND Nurse Practitioner Family
DX: N30.01 Acute cystitis with hematuria (principal); Z86.19 Personal history of other infectious and parasitic diseases
CPT/HCPCS: 36415; 80053; 85025; 87077; 87088; 87186

== ENCOUNTER 2022-05-22 17:58 | Emergency (ER) | payer MEDICAID ==
[~2022-05-22] VITALS: Ht 177 cm; Wt 81.0 kg
--- NOTE | 2022-05-22 18:08 | ED Neurological Problem ---
General Stated Complaint: FACIAL DROOPING/SLURRED SPEECH History of Present Illness Date Seen by Provider: May 22, 2022 Time Seen by Provider: 18:04 Initial Comments 56-year-old female with PMH of DM2/asthma/HTN, with bedbug infestation, is here with complaints of right-sided weakness which began around noon today. Patient has a weakness in her upper and lower extremity. Patient was able to ambulate with this. Patient states that she feels her speech is different although it sounds clear and coherent during H&P in the ER. Patient is stating that she has a UTI that is recurrent and she has been on multiple antibiotics without seeing much improvement. Patient stated that she ate a hamburger today. Denies fever, chest pain, palpitations, shortness of breath, abdominal pain, flank pain. Patient denies drinking alcohol or doing drugs. Allergies and Home Medications Allergies Coded Allergies: Penicillins (Verified Allergy, Unknown, 03/02/20) hydrocodone (Verified Allergy, Unknown, PT HAS REC OXYCODONE IN THE PAST, 03/27/22) latex (Verified Allergy, Unknown, 12/05/19) morphine (Verified Allergy, Unknown, PT HAS REC OXYCODONE IN THE PAST, 03/27/22) Uncoded Allergies: PLASTIC TAPE (Allergy, Mild, 12/05/19) Patient Home Medication List Home Medication List Reviewed: Yes Albuterol Sulfate (Ventolin Hfa) 1 Puff Puff, 2 PUFF PO Q4H PRN for SHORTNESS OF BREATH, (Reported) Entered as Reported by: RANDA BALDWIN on 12/06/19 0837 Atorvastatin Calcium (Atorvastatin Calcium) 10 Mg Tablet, 10 MG PO HS, (Reported) Entered as Reported by: RANDA BALDWIN on 01/09/22 1447 Budesonide/Formoterol Fumarate (Symbicort 160-4.5 Mcg Inhaler) 160 Mcg-4.5 Mcg/Actuation Hfa.aer.ad, 2 PUFF IH 1300, (Reported) Entered as Reported by: RANDA BALDWIN on 01/09/22 1447 Cariprazine Hydrochloride (Vraylar) 3 Mg Capsule, 3 MG PO DAILY, (Reported) Entered as Reported by: RANDA BALDWIN on 12/06/19 0837 Cetirizine HCl (Zyrtec) 10 Mg Tablet, 10 MG PO HS, (Reported) Entered as Reported by: SARAH BARRY on 01/16/20 1106 Diazepam (Diazepam) 5 Mg Tablet, 5 MG PO BID PRN for ANXIETY, (Reported) Entered as Reported by: RANDA BALDWIN on 12/06/19 0837 Docusate Sodium (Stool Softener) 100 Mg Capsule, 100 MG PO BID, (Reported) Entered as Reported by: RANDA BALDWIN on 01/09/22 144 Estradiol (Estrace Tablet) 1 Mg Tablet, 1 MG PO DAILY, (Reported) Entered as Reported by: SARAH BARRY on 01/16/20 1106 Ferrous Sulfate (Ferrous Sulfate) 325 Mg (65 Mg Iron) Tablet, 325 MG PO HS, (Reported) Entered as Reported by: RANDA BALDWIN on 01/09/22 144 Fluconazole (Diflucan) 100 Mg Tablet, 100 MG PO DAILY Prescribed by: GRISELDA PEREZ on 03/31/22 133 Furosemide (Furosemide) 40 Mg Tablet, 40 MG PO HS, (Reported) Entered as Reported by: RANDA BALDWIN on 01/09/22 144 Gabapentin (Gabapentin) 800 Mg Tablet, 800 MG PO TID, (Reported) Entered as Reported by: RANDA BALDWIN on 01/09/22 144 Ipratropium/Albuterol Sulfate (Iprat-Albut 0.5-3(2.5) mg/3 ml) 0.5 Mg-3 Mg (2.5 Mg Base)/3 Ml Ampul.neb, 3 ML IH Q6H PRN for SHORTNESS OF BREATH, (Reported) Entered as Reported by: RANDA BALDWIN on 01/09/22 144 L.acidoph & Paracasei,B.lactis (Probiotic) 10 Billion Cell Capsule, 1 EACH PO DAILY, (Reported) Entered as Reported by: RANDA BALDWIN on 01/09/22 144 Levofloxacin (Levofloxacin) 500 Mg Tablet, 500 MG PO DAILY Prescribed by: GRISELDA PEREZ on 03/31/22 133 Lisinopril (Lisinopril) 10 Mg Tablet, 10 MG PO DAILY, (Reported) Entered as Reported by: RANDA BALDWIN on 01/09/22 144 [place] Carbonate ([place] Carbonate) 300 Mg Capsule, 300 MG PO 1300, (Reported) Entered as Reported by: RANDA BALDWIN on 12/06/19 08 Lubiprostone (Lubiprostone) 8 Mcg Capsule, 8 MCG PO 1300, (Reported) Entered as Reported by: RANDA BALDWIN on 03/27/22 1507 Metformin HCl (Metformin HCl) 1,000 Mg Tablet, 1,000 MG PO DAILY, (Reported) Entered as Reported by: RANDA BALDWIN on 01/09/22 144 Metformin HCl (Metformin HCl) 1,000 Mg Tablet, 500 MG PO HS, (Reported) Entered as Reported by: RANDA BALDWIN on 01/09/22 144 Montelukast Sodium (Montelukast Sodium) 10 Mg Tablet, 10 MG PO HS, (Reported) Entered as Reported by: RANDA BALDWIN on 12/06/19836 Ondansetron (Ondansetron Odt) 4 Mg Tab.rapdis, 4 MG PO Q6H Prescribed by: GRISELDA PEREZ on 03/31/22 1331 Oxycodone HCl/Acetaminophen (Oxycodone-Acetaminophen 5-325) 5 Mg-325 Mg Tablet, 1 EA PO BID PRN for PAIN-MODERATE (5-7), (Reported) Entered as Reported by: RANDA BALDWIN on 01/09/22 144 Potassium Chloride (Potassium Chloride) 20 Meq Tablet.er, 20 MEQ PO HS, (Reported) Entered as Reported by: RANDA BALDWIN on 01/09/22 145 Rivaroxaban (Xarelto) 20 Mg Tablet, 20 MG PO DAILY, (Reported) Entered as Reported by: RANDA BALDWIN on 01/09/22 144 Ropinirole HCl (Ropinirole HCl) 3 Mg Tablet, 3 MG PO 2200, (Reported) Entered as Reported by: RANDA BALDWIN on 01/09/22 144 Semaglutide (Ozempic) 0.25 Mg/0.2 Ml Pen.injctr, 0.25 MG SQ FRI, (Reported) Entered as Reported by: RANDA BALDWIN on 01/09/22 144 Tiotropium [place] (Spiriva) 18 Mcg Aerp, 1 INH IH HS, (Reported) Entered as Reported by: RANDA BALDWIN on 01/09/22 144 Tramadol HCl (Tramadol HCl) 50 Mg Tablet, 100 MG PO TID PRN for PAIN-MODERATE (5-7), (Reported) Entered as Reported by: RANDA BALDWIN on 01/09/221446 Trazodone HCl (Trazodone HCl) 100 Mg Tablet, 100 MG PO HS, (Reported) Entered as Reported by: RANDA BALDWIN on 01/09/221446 Ubrogepant (Ubrelvy) 100 Mg Tablet, 100 MG PO UD PRN for HEADACHE, (Reported) Entered as Reported by: RANDA BALDWIN on 01/09/221446 Review of Systems Review of Systems Constitutional: no symptoms reported Eyes: No Symptoms Reported Ears, Nose, Mouth, Throat: no symptoms reported Respiratory: no symptoms reported Cardiovascular: no symptoms reported Gastrointestinal: no symptoms reported Genitourinary: dysuria Musculoskeletal: no symptoms reported Skin: no symptoms reported Psychiatric/Neurological: Numbness, Weakness Endocrine: No Symptoms Reported Hematologic/Lymphatic: No Symptoms Reported Past Cxxfsce-Dgzxlh-Wpfawm Hx Immunizations Up To Date First/Initial COVID19 Vaccinat: 2020 Second COVID19 Vaccination Musa: 2020 Third COVID19 Vaccination Date: 2020 Seasonal Allergies Seasonal Allergies: No Past Medical History Surgery/Hospitalization HX: COPD/asthma, CHF Surgeries: Yes Abdominal, Appendectomy, Gallbladder Respiratory: Yes Asthma, COPD Currently Using CPAP: No Currently Using BIPAP: No Cardiac: Yes (CHF) Hypertension Neurological: Yes (fibromyalgia) 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 Genitourinary: No Kidney Stones, UTI-Chronic Gastrointestinal: Yes Gastroesophageal Reflux, Gall Bladder Disease Musculoskeletal: Yes Arthritis, Fibromyalgia Endocrine: Yes Diabetes, Non-Insulin dep HEENT: No Loss of Vision: Denies Hearing Impairment: Denies Cancer: No Psychosocial: No Anxiety, Depression Integumentary: No Blood Disorders: Yes (Factor V deficiency) Adverse Reaction/Blood Tranf: No Family Medical History Cardiovascular disease 19 MOTHER Colon cancer 19 FATHER G8 BROTHER G8 BROTHER Diabetes mellitus 19 MOTHER G8 BROTHER Heart Disease, Cancer, Diabetes Physical Exam Vital Signs Vital Signs - First Documented 05/22/22 18:18 Temp 35.8 Pulse 86 Resp 18 B/P (MAP) 89/47 (61) Pulse Ox 95 O2 Delivery Room Air Capillary Refill : Height, Weight, BMI Height: 5'2.00" Weight: 180lbs. oz. 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-XII nml as tested, no motor/sensory deficits, alert, normal mood/affect, oriented x 3 Crainal Nerves: normal hearing, normal speech, PERRL Coordination/Gait: normal finger to nose Motor/Sensory: no motor deficit, no sensory deficit, no pronator drift, negative Babinski's sign Skin: normal color Lymphatic: no adenopathy Focused Exam Lactate Level 05/22/22 19:04: Lactic Acid Level 1.55 Lactic Acid Level Laboratory Tests Test 05/22/22 19:04 Lactic Acid Level 1.55 MMOL/L (0.50-2.00) Progress/Results/Core Measures Results/Orders Lab Results Laboratory Tests Test 05/22/22 18:05 05/22/22 18:08 05/22/22 18:25 05/22/22 19:04 Range/Units Glucometer 90 70-110 MG/DL White Blood Count 9.4 4.3-11.0 10^3/uL Red Blood Count 3.80 3.80-5.11 10^6/uL Hemoglobin 10.5 L 11.5-16.0 g/dL Hematocrit 35 35-52 % Mean Corpuscular Volume 91 80-99 fL Mean Corpuscular Hemoglobin 28 25-34 pg Mean Corpuscular Hemoglobin Concent 30 L 32-36 g/dL Red Cell Distribution Width 13.5 10.0-14.5 % Platelet Count 432 H 130-400 10^3/uL Mean Platelet Volume 9.5 9.0-12.2 fL Immature Granulocyte % (Auto) 0 % Neutrophils (%) (Auto) 55 42-75 % Lymphocytes (%) (Auto) 34 12-44 % Monocytes (%) (Auto) 5 0-12 % Eosinophils (%) (Auto) 5 0-10 % Basophils (%) (Auto) 0 0-10 % Neutrophils # (Auto) 5.2 1.8-7.8 10^3/uL Lymphocytes # (Auto) 3.2 1.0-4.0 10^3/uL Monocytes # (Auto) 0.5 0.0-1.0 10^3/uL Eosinophils # (Auto) 0.5 H 0.0-0.3 10^3/uL Basophils # (Auto) 0.0 0.0-0.1 10^3/uL Immature Granulocyte # (Auto) 0.0 0.0-0.1 10^3/uL Prothrombin Time 12.1 L 12.2-14.7 SEC INR Comment 0.9 0.8-1.4 Activated Partial Thromboplast Time 28 24-35 SEC Sodium Level 139 135-145 MMOL/L Potassium Level 5.4 H 3.6-5.0 MMOL/L Chloride Level 101 98-107 MMOL/L Carbon Dioxide Level 25 21-32 MMOL/L Anion Gap 13 5-14 MMOL/L Blood Urea Nitrogen 42 H 7-18 MG/DL Creatinine 5.05 H 0.60-1.30 MG/DL Estimat Glomerular Filtration Rate 9 BUN/Creatinine Ratio 8 Glucose Level 82 70-105 MG/DL Calcium Level 9.8 8.5-10.1 MG/DL Corrected Calcium 9.6 8.5-10.1 MG/DL Total Bilirubin < 0.2 0.1-1.0 MG/DL Aspartate Amino Transf (AST/SGOT) 18 5-34 U/L Alanine Aminotransferase (ALT/SGPT) 14 0-55 U/L Alkaline Phosphatase 87 40-136 U/L Troponin I < 0.30 <0.30 NG/ML C-Reactive Protein 1.07 H <0.50 MG/DL Total Protein 7.8 6.4-8.2 GM/DL Albumin 4.2 3.2-4.5 GM/DL Serum Alcohol 14 H <10 MG/DL Urine Color YELLOW Urine Clarity SL CLOUDY Urine pH 5.5 5-9 Urine Specific [place] 1.025 H 1.016-1.022 Urine Protein TRACE H NEGATIVE Urine Glucose (UA) NEGATIVE NEGATIVE Urine Ketones NEGATIVE NEGATIVE Urine Nitrite NEGATIVE NEGATIVE Urine Bilirubin NEGATIVE NEGATIVE Urine Urobilinogen 0.2 < = 1.0 MG/DL Urine Leukocyte Esterase 1+ H NEGATIVE Urine RBC (Auto) NEGATIVE NEGATIVE Urine RBC NONE /HPF Urine WBC 10-25 H /HPF Urine Squamous Epithelial Cells 25-50 H /HPF Urine Crystals NONE /LPF Urine Bacteria FEW H /HPF Urine Casts PRESENT /LPF Urine Hyaline Casts 10-25 H /LPF Urine Mucus NEGATIVE /LPF Urine Culture Indicated YES Urine Opiates Screen NEGATIVE NEGATIVE Urine Oxycodone Screen POSITIVE H NEGATIVE Urine Methadone Screen NEGATIVE NEGATIVE Urine Propoxyphene Screen NEGATIVE NEGATIVE Urine Barbiturates Screen NEGATIVE NEGATIVE Ur Tricyclic Antidepressants Screen NEGATIVE NEGATIVE Urine Phencyclidine Screen NEGATIVE NEGATIVE Urine Amphetamines Screen NEGATIVE NEGATIVE Urine Methamphetamines Screen NEGATIVE NEGATIVE Urine Benzodiazepines Screen POSITIVE H NEGATIVE Urine Cocaine Screen NEGATIVE NEGATIVE Urine Cannabinoids Screen NEGATIVE NEGATIVE Lactic Acid Level 1.55 0.50-2.00 MMOL/L My Orders Orders - VIANNEY BRYSON MD Ct Head Wo-R/O Stroke (05/22/22 18:08) Alcohol (05/22/22 18:11) Cbc With Automated Diff (05/22/22 18:11) Comprehensive Metabolic Panel (05/22/22 18:11) Drug Screen Stat (Urine) (05/22/22 18:11) Protime With Inr (05/22/22 18:11) Partial Thromboplastin Time (05/22/22 18:11) Ua Culture If Indicated (05/22/22 18:11) Troponin I Fs (05/22/22 18:11) Chest 1 View Ap/Pa Only (05/22/22 18:16) Urine Culture (05/22/22 18:25) Ekg Tracing (05/22/22 18:45) Vital Signs Stroke Patient Q15M (05/22/22 18:48) Monitor-Rhythm Ecg Trace Only (05/22/22 18:48) Dysphagia Screening Tool Q10MX1 (05/22/22 18:48) Ct Angio Head/Neck (05/22/22 18:48) Ed Iv/Invasive Line Start (05/22/22 18:59) Ns Iv 1000 Ml (Sodium Chloride 0.9%) (05/22/22 19:00) Ceftriaxone 1 Gm Pre-Mix (Rocephin 1 Gm (05/22/22 18:59) Lactic Acid Analyzer (05/22/22 19:00) Crp Fs (05/22/22 19:00) Iohexol Injection (Omnipaque 350 Mg/Ml 1 (05/22/22 19:15) Di Iv Start (Assessment) .IV start (05/22/22 19:01) Received Contrast (Hold Metformin- Contr (05/22/22 19:15) Ns (Ivpb) (Sodium Chloride 0.9% Ivpb Bag (05/22/22 19:15) Medications Given in ED Current Medications Medications Dose Ordered Sig/Ren Route Start Time Stop Time Status Last Admin Dose Admin Iohexol 75 ml ONCE ONCE IV 05/22/22 19:15 05/22/22 19:16 DC 05/22/22 19:11 75 ML Sodium Chloride 100 ml ONCE ONCE IV 05/22/22 19:15 05/22/22 19:16 DC 05/22/22 19:11 100 ML Vital Signs/I&O 05/22/22 05/22/22 18:18 19:35 Temp 35.8 Pulse 86 83 Resp 18 16 B/P (MAP) 89/47 (61) 127/40 Pulse Ox 95 97 O2 Delivery Room Air Progress Progress Note : Progress Note 1. TIA: - CT HEAD: no ischemic changes - CXR unremarkable - Troponin/ EKG: non-ischemic - Pt's speech has been clear and coherent the entire time in the ER. Patient states that her right-sided weakness is improving, however she has not displayed any neurological deficits in the ER. Exam shows 5 out of 5 strength in upper and lower extremities - UDS is positive for oxycodone and benzos 2. UTI WITH HYPOTENSION: UROSEPSIS - UA is positive for LE, WBC, RBC - Pt has had recurrent UTI with multiple rounds of antibiotics with persistent symptoms - Ceftriaxone iv STAT - CBC/ CMP: normal WBC, lactic acid normal - CRP elevated: 1.07 - NS IVF bolus with resulting improvement of BP 3. ALCOHOL level elevated: - s. ETOH is 14 - Pt denies drinking alcohol 4. ACUTE KIDNEY INJURY/ DEHYDRATION: - NS IVF - s. creatinine is 5.05 and BUN is 42 - Refusal from [facility] in [place] due to lackof nephrology consult. - Pt will need transfer for nephrology consult. Will transfer to [facility]. Diagnostic Imaging Diagonstic Imaging: Xray, CT Plain Films/CT/US/NM/MRI: chest, head Comments [facility]. [place], [place] NAME: NICKIE CHUA MED REC#: [id number] PT STATUS: REG ER : 1965 PHYSICIAN: VIANNEY BRYSON MD ADMIT DATE: 05/22/22/ER FS Draft Date of Exam:05/22/22 CHEST 1 VIEW AP/PA ONLY CLINICAL INDICATION: Patient with right-sided weakness. EXAM: Portable chest x-ray upright view. COMPARISON: Chest x-ray dated 03/26/2022. FINDINGS: Lungs/pleura: There is mild bibasilar atelectasis. There is no lung infiltrate seen. There is no pneumothorax. There is no pleural effusion. Mediastinum: Unremarkable. Pulmonary vasculature: Unremarkable. Heart: Interval mild cardiomegaly. Bones/extrathoracic soft tissue: Unremarkable. IMPRESSION: 1: There is mild bibasilar atelectasis. There is no radiographic evidence of acute cardiopulmonary process. 2: There is mild cardiomegaly with no significant pulmonary vascular congestion. Dictated on workstation # [id number] Dict: 05/22/22 184 Trans: 05/22/221845 [facility] [id number] Interpreted by: DESEAN LIMA MD Electronically signed by: SHILOH [place], [place] NAME: NICKIE CHUA [facility] REC#: [id number] PT STATUS: REG ER : 1965 PHYSICIAN: VIANNEY BRYSON MD ADMIT DATE: 05/22/22/ER FS Draft Date of Exam:05/22/22 CT HEAD WO-R/O STROKE PROCEDURE: CT head wo r/o stroke. TECHNIQUE: Multiple contiguous axial images were obtained through the brain without the use of intravenous contrast. Auto Exposure Controls were utilized during the CT exam to meet ALARA standards for radiation dose reduction. INDICATION: Right-sided weakness and facial droop. COMPARISON: 03/26/2022. FINDINGS: There is no intracranial hemorrhage. No hydrocephalus, edema, mass, mass effect or evidence for elevation of the intracranial pressures. The basilar cisterns are patent. There is no sulcal effacement. The garcía-white matter differentiations are well-maintained. No suspicious or asymmetric intracranial arterial intraluminal hyperdensities were found. IMPRESSION: Stable normal CT head. Dictated on workstation # [id number] Dict: 05/22/22 1834 Trans: 05/22/22 1840 [facility] [id number] Interpreted by: TIBURCIO HARP Electronically signed by: Departure Impression Primary Impression: Sepsis due to urinary tract infection Additional Impressions: Acute kidney injury Elevated ETOH level TIA (transient ischemic attack) Disposition: 02 XFER SHT-TRM HOSP Condition: Stable Transfer Transfer Reason: Exceeds level of care Time Spoke to Accepting Phy: 20:32 Transfer Progress Notes Accepted by Dr Boswell at [facility] Transfer Facility: [facility] Method of Transfer: EMS Departure-Patient Inst. Referrals: ADDY SMART APRN (PCP) Primary Care Physician [facility] (Family) Primary Care Physician VIANNEY BRYSON MD May 22, 2022 18:07
[2022-05-22 18:17] LABS: BASOPHILS % (AUTO) 0 % (0-10); EOSINOPHILS # (AUTO) 0.5 10^3/uL (0.0-0.3); EOSINOPHILS % (AUTO) 5 % (0-10); HEMATOCRIT 35 % (35-52); HEMOGLOBIN 10.5 g/dL (11.5-16.0); LYMPHOCYTES # (AUTO) 3.2 10^3/uL (1.0-4.0); LYMPHOCYTES % (AUTO) 34 % (12-44); MEAN CORPUSCULAR HEMOGLOBIN 28 pg (25-34); MEAN CORPUSCULAR HGB CONC 30 g/dL (32-36); MEAN CORPUSCULAR VOLUME 91 fL (80-99); MEAN PLATELET VOLUME 9.5 fL (9.0-12.2); MONOCYTES # (AUTO) 0.5 10^3/uL (0.0-1.0); MONOCYTES % (AUTO) 5 % (0-12); NEUTROPHILS # (AUTO) 5.2 10^3/uL (1.8-7.8); NEUTROPHILS % (AUTO) 55 % (42-75); PLATELET COUNT 432 10^3/uL (130-400); WHITE BLOOD COUNT 9.4 10^3/uL (4.3-11.0)
[2022-05-22 18:26] LABS: BILIRUBIN,URINE NEGATIVE (NEGATIVE); CLARITY,URINE SL CLOUDY; COLOR,URINE YELLOW; GLUCOSE, URINE (UA) NEGATIVE (NEGATIVE); KETONES,URINE NEGATIVE (NEGATIVE); LEUKOCYTE ESTERASE ,URINE 1+ (NEGATIVE); NITRITE,URINE NEGATIVE (NEGATIVE); PH,URINE 5.5 (5-9); PROTEIN,URINE TRACE (NEGATIVE)
[2022-05-22 18:34] LABS: BACTERIA,URINE FEW /HPF; SQUAMOUS EPITHELIAL CELL,UR 25-50 /HPF
[2022-05-22 18:36] LABS: INR 0.9 (0.8-1.4); PROTHROMBIN TIME PATIENT 12.1 SEC (12.2-14.7)
[2022-05-22 18:38] LABS: AMPHETAMINE SCREEN, URINE NEGATIVE (NEGATIVE); BARBITURATE SCREEN URINE NEGATIVE (NEGATIVE); BENZODIAZEPINES SCREEN URINE POSITIVE (NEGATIVE); CANNABINOID SCREEN, URINE NEGATIVE (NEGATIVE); COCAINE SCREEN URINE NEGATIVE (NEGATIVE); METHADONE STAT NEGATIVE (NEGATIVE); OPIATE SCREEN URINE NEGATIVE (NEGATIVE); OXYCODONE STAT POSITIVE (NEGATIVE); PROPOXYPHENE STAT NEGATIVE (NEGATIVE); TRICYCLIC ANTIDEPRESSANTS SCRE NEGATIVE (NEGATIVE)
[2022-05-22 18:40] LABS: BUN/CREATININE RATIO 8; CARBON DIOXIDE 25 MMOL/L (21-32); CHLORIDE 101 MMOL/L (98-107); CREATININE SERUM 5.05 MG/DL (0.60-1.30); GFR ESTIMATED 9; POTASSIUM 5.4 MMOL/L (3.6-5.0); SODIUM 139 MMOL/L (135-145)
--- NOTE | 2022-05-22 18:40 | Diagnostic Imaging Report ---
PROCEDURE: CT head wo r/o stroke. TECHNIQUE: Multiple contiguous axial images were obtained through the brain without the use of intravenous contrast. Auto Exposure Controls were utilized during the CT exam to meet ALARA standards for radiation dose reduction. INDICATION: Right-sided weakness and facial droop. COMPARISON: 03/26/2022. FINDINGS: There is no intracranial hemorrhage. No hydrocephalus, edema, mass, mass effect or evidence for elevation of the intracranial pressures. The basilar cisterns are patent. There is no sulcal effacement. The garcía-white matter differentiations are well-maintained. No suspicious or asymmetric intracranial arterial intraluminal hyperdensities were found. IMPRESSION: Stable normal CT head. Dictated by: Dictated on workstation # [id number]
[2022-05-22 18:41] LABS: ALANINE AMINOTRANSFERASE 14 U/L (0-55); ALBUMIN 4.2 GM/DL (3.2-4.5); ALKALINE PHOSPHATASE 87 U/L (40-136); BILIRUBIN,TOTAL < 0.2 MG/DL (0.1-1.0); CALCIUM 9.8 MG/DL (8.5-10.1); GLUCOSE 82 MG/DL (70-105); TOTAL PROTEIN 7.8 GM/DL (6.4-8.2)
--- NOTE | 2022-05-22 18:46 | Diagnostic Imaging Report ---
CLINICAL INDICATION: Patient with right-sided weakness. EXAM: Portable chest x-ray upright view. COMPARISON: Chest x-ray dated 03/26/2022. FINDINGS: Lungs/pleura: There is mild bibasilar atelectasis. There is no lung infiltrate seen. There is no pneumothorax. There is no pleural effusion. Mediastinum: Unremarkable. Pulmonary vasculature: Unremarkable. Heart: Interval mild cardiomegaly. Bones/extrathoracic soft tissue: Unremarkable. IMPRESSION: 1: There is mild bibasilar atelectasis. There is no radiographic evidence of acute cardiopulmonary process. 2: There is mild cardiomegaly with no significant pulmonary vascular congestion. Dictated by: Dictated on workstation # [id number]
[2022-05-22] MEDS ORDERED: cefTRIAXone 1 GM PRE-MIX 50 ML IV STA (18:59)
[2022-05-22] MEDS ORDERED: NS IV 1000 ML 1,000 ML IV SCH (19:00)
[2022-05-22] MEDS ORDERED: NS 100 ML (IVPB) BAG IV ONE (19:15)
[2022-05-22] MEDS ORDERED: IOHEXOL 350 MG/ML 100 ML (OMNIPAQUE 350) VIAL IV ONE (19:15)
[2022-05-22] MEDS ORDERED: HOLD METFORMIN - RECEIVED CONTRAST 20 ML VIAL IV SCH (19:15)
[2022-05-22 19:35] VITALS: BP 127/40
--- NOTE | 2022-05-22 19:50 | Diagnostic Imaging Report ---
PROCEDURE: CT angiography of the head and CT angiography of the neck with and without contrast. TECHNIQUE: Contiguous noncontrast images were obtained from the skull base through the vertex. After intravenous contrast administration, helical CT angiography of the neck was performed. Source data was reformatted into 3D MIP projections. Delayed post contrast acquisition was also obtained. Auto Exposure Controls were utilized during the CT exam to meet ALARA standards for radiation dose reduction. INDICATION: Right sided weakness. FINDINGS: The delayed postcontrast enhanced head CT showed no abnormal parenchymal or meningeal enhancement. There is enhancement of the major dural venous sinuses. No mass or mass effect. No contrast extravasation. CTA NECK: The aortic arch and branching pattern of the great vessels normal. Cervical vertebral arteries patent and codominant. The bilateral common carotids patent. There is mixed soft and hard plaque at the right carotid bifurcation extending into the proximal ICA resulting in 50% or less stenosis on the right and well less than 50% on the left. We acknowledge in the neck and head there is a much greater contrast dispersal within the venous structures as opposed to the arterial structures. This limits sensitivity. No appreciable dissection or segmental occlusion. CTA HEAD: Intracranial ICA shows no convincing evidence for stenosis. M1 segments are patent. The middle cerebral arterial branches showed no obvious filling defect, thrombus or large vessel occlusion but their opacification is technically limited. The A1 segments and the anterior cerebral arterial segments are patent. The intradural vertebral arteries show no convincing pathology the basilar is patent. The bilateral EVALUATION ENGINEER segments proximally are patent distally but cannot be visualized technically. IMPRESSION: Limited intracranial and upper cervical arterial opacification technically, no hemodynamically significant stenosis in the neck or head was found and no occlusive thrombus or vascular malformation apparent. Dictated by: Dictated on workstation # [id number]
[2022-05-22 21:12] VITALS: BP 126/42
== END 2022-05-22 21:45 | disposition short-term general hospital (02) ==
LOC: EDUNIT# 17:58 → ER FS 18:01
DX: A41.9 Sepsis, unspecified organism (principal); R65.20 Severe sepsis without septic shock; N39.0 Urinary tract infection, site not specified; N17.9 Acute kidney failure, unspecified; G45.9 Transient cerebral ischemic attack, unspecified; Y90.0 Blood alcohol level of less than 20 mg/100 ml; I11.0 Hypertensive heart disease with heart failure; I50.9 Heart failure, unspecified; Z91.040 Latex allergy status; Z28.310 Unvaccinated for COVID-19
CPT/HCPCS: 36415; 70450; 70496; 70498; 71045; 80053; 80306; 81000; 82947; 83605; 84484; 85025; 85610; 85730; 86141; 87088; 87636; 93005; 93041; 99284; G0480; 80320; Q9967

== ENCOUNTER 2022-10-19 16:30 | Inpatient (IN) | payer MEDICARE, MEDICAID ==
[~2022-10-19] VITALS: Ht 152.4 cm; Wt 75.2 kg
--- NOTE | 2022-10-19 16:43 | ED Chest Pain ---
General Chief Complaint: Chest Wall Stated Complaint: CP 4 DAYS Source: patient Exam Limitations: no limitations History of Present Illness Date Seen by Provider: Oct 19, 2022 Time Seen by Provider: 16:32 Initial Comments 57-year-old female presents to the emergency room today for chest pain. She states symptoms started 4 days ago and initially intermittent but has been present all day today. It is described as sharp stabbing in her left chest with radiation into her left neck and arm. She states she has had similar pains in the past but has not had the radiation of the pain before which was her main concern. She denies any fevers or chills. She has had associated headache and body aches. She states she is generally felt unwell over the last 4 days. She has been told by her quality assurance representative that she has had a mild heart attack in the past however she has no stents in her heart. All other systems reviewed and negative except documented per HPI. Voice recognition software was used to help create this chart Allergies and Home Medications Allergies Coded Allergies: Penicillins (Verified Allergy, Unknown, 03/02/20) hydrocodone (Verified Allergy, Unknown, PT HAS REC OXYCODONE IN THE PAST, 03/27/22) latex (Verified Allergy, Unknown, 12/05/19) morphine (Verified Allergy, Unknown, PT HAS REC OXYCODONE IN THE PAST, 03/27/22) Uncoded Allergies: PLASTIC TAPE (Allergy, Mild, 12/05/19) Patient Home Medication List Home Medication List Reviewed: Yes Albuterol Sulfate (Ventolin Hfa) 1 Puff Puff, 2 PUFF PO Q4H PRN for SHORTNESS OF BREATH, (Reported) Entered as Reported by: RANDA BALDWIN on 12/06/19 0837 Atorvastatin Calcium (Atorvastatin Calcium) 10 Mg Tablet, 10 MG PO HS, (Reported) Entered as Reported by: RANDA BALDWIN on 01/09/22 1447 Budesonide/Formoterol Fumarate (Symbicort 160-4.5 Mcg Inhaler) 160 Mcg-4.5 Mcg/Actuation Hfa.aer.ad, 2 PUFF IH 1300, (Reported) Entered as Reported by: RANDA BALDWIN on 01/09/22 1447 Cariprazine Hydrochloride (Vraylar) 3 Mg Capsule, 3 MG PO DAILY, (Reported) Entered as Reported by: RANDA BALDWIN on 12/06/19 0837 Cetirizine HCl (Zyrtec) 10 Mg Tablet, 10 MG PO HS, (Reported) Entered as Reported by: SARAH BARRY on 01/16/20 110 Diazepam (Diazepam) 5 Mg Tablet, 5 MG PO BID PRN for ANXIETY, (Reported) Entered as Reported by: RANDA BALDWIN on 12/06/19 08 Docusate Sodium (Stool Softener) 100 Mg Capsule, 100 MG PO BID, (Reported) Entered as Reported by: RANDA BALDWIN on 01/09/22 144 Estradiol (Estrace Tablet) 1 Mg Tablet, 1 MG PO DAILY, (Reported) Entered as Reported by: SARAH BARRY on 01/16/20 110 Ferrous Sulfate (Ferrous Sulfate) 325 Mg (65 Mg Iron) Tablet, 325 MG PO HS, (Reported) Entered as Reported by: RANDA BALDWIN on 01/09/22 144 Fluconazole (Diflucan) 100 Mg Tablet, 100 MG PO DAILY Prescribed by: GRISELDA PEREZ on 03/31/22 133 Furosemide (Furosemide) 40 Mg Tablet, 40 MG PO HS, (Reported) Entered as Reported by: RANDA BALDWIN on 01/09/22 144 Gabapentin (Gabapentin) 800 Mg Tablet, 800 MG PO TID, (Reported) Entered as Reported by: RANDA BALDWIN on 01/09/22 144 Ipratropium/Albuterol Sulfate (Iprat-Albut 0.5-3(2.5) mg/3 ml) 0.5 Mg-3 Mg (2.5 Mg Base)/3 Ml Ampul.neb, 3 ML IH Q6H PRN for SHORTNESS OF BREATH, (Reported) Entered as Reported by: RANDA BALDWIN on 01/09/22 144 L.acidoph & Paracasei,B.lactis (Probiotic) 10 Billion Cell Capsule, 1 EACH PO DAILY, (Reported) Entered as Reported by: RANDA BALDWIN on 01/09/22 144 Levofloxacin (Levofloxacin) 500 Mg Tablet, 500 MG PO DAILY Prescribed by: GRISELDA PEREZ on 03/31/22 1331 Lisinopril (Lisinopril) 10 Mg Tablet, 10 MG PO DAILY, (Reported) Entered as Reported by: RANDA BALDWIN on 01/09/22 144 Hunt Carbonate (Hunt Carbonate) 300 Mg Capsule, 300 MG PO 1300, (Reported) Entered as Reported by: RANDA BALDWIN on 12/06/19 08 Lubiprostone (Lubiprostone) 8 Mcg Capsule, 8 MCG PO 1300, (Reported) Entered as Reported by: RANDA BALDWIN on 03/27/22 1507 Metformin HCl (Metformin HCl) 1,000 Mg Tablet, 1,000 MG PO DAILY, (Reported) Entered as Reported by: RANDA BALDWIN on 01/09/22 144 Metformin HCl (Metformin HCl) 1,000 Mg Tablet, 500 MG PO HS, (Reported) Entered as Reported by: RANDA BALDWIN on 01/09/22 144 Montelukast Sodium (Montelukast Sodium) 10 Mg Tablet, 10 MG PO HS, (Reported) Entered as Reported by: RANDA BALDWIN on 12/06/19 08 Ondansetron (Ondansetron Odt) 4 Mg Tab.rapdis, 4 MG PO Q6H Prescribed by: GRISELDA PEREZ on 03/31/22 1331 Oxycodone HCl/Acetaminophen (Oxycodone-Acetaminophen 5-325) 5 Mg-325 Mg Tablet, 1 EA PO BID PRN for PAIN-MODERATE (5-7), (Reported) Entered as Reported by: RANDA BALDWIN on 01/09/22 144 Potassium Chloride (Potassium Chloride) 20 Meq Tablet.er, 20 MEQ PO HS, (Reported) Entered as Reported by: RANDA BALDWIN on 01/09/22 145 Rivaroxaban (Xarelto) 20 Mg Tablet, 20 MG PO DAILY, (Reported) Entered as Reported by: RANDA BALDWIN on 01/09/22 144 Ropinirole HCl (Ropinirole HCl) 3 Mg Tablet, 3 MG PO 2200, (Reported) Entered as Reported by: RANDA BALDWIN on 01/09/22 144 Semaglutide (Ozempic) 0.25 Mg/0.2 Ml Pen.injctr, 0.25 MG SQ FRI, (Reported) Entered as Reported by: RANDA BALDWIN on 01/09/22 144 Tiotropium [place] (Spiriva) 18 Mcg Aerp, 1 INH IH HS, (Reported) Entered as Reported by: RANDA BALDWIN on 01/09/221446 Tramadol HCl (Tramadol HCl) 50 Mg Tablet, 100 MG PO TID PRN for PAIN-MODERATE (5-7), (Reported) Entered as Reported by: RANDA BALDWIN on 01/09/221446 Trazodone HCl (Trazodone HCl) 100 Mg Tablet, 100 MG PO HS, (Reported) Entered as Reported by: RANDA BALDWIN on 01/09/221446 Ubrogepant (Ubrelvy) 100 Mg Tablet, 100 MG PO UD PRN for HEADACHE, (Reported) Entered as Reported by: RANDA BALDWIN on 01/09/221446 Review of Systems Review of Systems Constitutional: see HPI Past Zbdbgqa-Fndcxv-Jlbmgb Hx Patient Social History Tobacco Use?: No Use of E-Cig and/or Vaping dev: No Substance use?: No Alcohol Use?: No Pt feels they are or have been: No Immunizations Up To Date First/Initial COVID19 Vaccinat: 2020 Second COVID19 Vaccination Musa: 2020 Third COVID19 Vaccination Date: 2020 Seasonal Allergies Seasonal Allergies: No Past Medical History Surgery/Hospitalization HX: COPD/asthma, CHF Surgeries: Yes Abdominal, Appendectomy, Gallbladder Respiratory: Yes Asthma, COPD Currently Using CPAP: No Currently Using BIPAP: No Cardiac: Yes (CHF) Hypertension Neurological: Yes (fibromyalgia) [employer]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 History: 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 Genitourinary: No Kidney Stones, UTI-Chronic Gastrointestinal: Yes Gastroesophageal Reflux, Gall Bladder Disease Musculoskeletal: Yes Arthritis, Fibromyalgia Endocrine: Yes Diabetes, Non-Insulin dep HEENT: No Loss of Vision: Denies Hearing Impairment: Denies Cancer: No Psychosocial: No Anxiety, Depression Integumentary: No Blood Disorders: Yes (Factor V deficiency) Adverse Reaction/Blood Tranf: No Family Medical History Reviewed Nursing Family Hx Cardiovascular disease 19 MOTHER Colon cancer 19 FATHER G8 BROTHER G8 BROTHER Diabetes mellitus 19 MOTHER G8 BROTHER Heart Disease, Cancer, Diabetes Physical Exam Vital Signs Vital Signs - First Documented 10/19/22 16:35 Temp 36.9 Pulse 99 Resp 16 B/P (MAP) 125/88 (100) Pulse Ox 95 O2 Delivery Room Air Capillary Refill : Height, Weight, BMI Height: 5'2.00" Weight: 180lbs. oz. 81.733544af; 25.00 BMI Method:Estimated General Appearance: No Apparent Distress, WD/WN HEENT: Normal ENT Inspection, Pharynx Normal Neck: Full Range of Motion, Normal Inspection, Non Tender, Supple Respiratory: Lungs Clear, Normal Breath Sounds, No Accessory Muscle Use, No Respiratory Distress, Other (Chest is tender to palpation diffusely. No crepitus or deformity.) Cardiovascular: Regular Rate, Rhythm, No Murmur, Normal Peripheral Pulses Gastrointestinal: Normal Bowel Sounds, Non Tender, Soft Extremity: Normal Capillary Refill, Normal Inspection, Normal Range of Motion, Non Tender, No Calf Tenderness, No Pedal Edema Neurologic/Psychiatric: Alert, Oriented x3, Normal Mood/Affect Skin: Normal Color, Warm/Dry Progress/Results/Core Measures Results/Orders Lab Results Laboratory Tests Test 10/19/22 16:55 Range/Units White Blood Count 8.2 4.3-11.0 10^3/uL Red Blood Count 4.31 3.80-5.11 10^6/uL Hemoglobin 12.7 11.5-16.0 g/dL Hematocrit 39 35-52 % Mean Corpuscular Volume 89 80-99 fL Mean Corpuscular Hemoglobin 30 25-34 pg Mean Corpuscular Hemoglobin Concent 33 32-36 g/dL Red Cell Distribution Width 13.5 10.0-14.5 % Platelet Count 309 130-400 10^3/uL Mean Platelet Volume 9.0 9.0-12.2 fL Immature Granulocyte % (Auto) 0 % Neutrophils (%) (Auto) 60 42-75 % Lymphocytes (%) (Auto) 31 12-44 % Monocytes (%) (Auto) 6 0-12 % Eosinophils (%) (Auto) 2 0-10 % Basophils (%) (Auto) 0 0-10 % Neutrophils # (Auto) 4.9 1.8-7.8 10^3/uL Lymphocytes # (Auto) 2.6 1.0-4.0 10^3/uL Monocytes # (Auto) 0.5 0.0-1.0 10^3/uL Eosinophils # (Auto) 0.2 0.0-0.3 10^3/uL Basophils # (Auto) 0.0 0.0-0.1 10^3/uL Immature Granulocyte # (Auto) 0.0 0.0-0.1 10^3/uL Sodium Level 143 135-145 MMOL/L Potassium Level 2.6 L 3.6-5.0 MMOL/L Chloride Level 100 98-107 MMOL/L Carbon Dioxide Level 28 21-32 MMOL/L Anion Gap 15 H 5-14 MMOL/L Blood Urea Nitrogen 8 7-18 MG/DL Creatinine 0.66 0.60-1.30 MG/DL Estimat Glomerular Filtration Rate 102 BUN/Creatinine Ratio 12 Glucose Level 125 H 70-105 MG/DL Calcium Level 9.6 8.5-10.1 MG/DL Troponin I < 0.30 <0.30 NG/ML My Orders Orders - GINNA NELSON DO Cbc With Automated Diff (10/19/22 16:40) Basic Metabolic Panel (10/19/22 16:40) Troponin I Fs (10/19/22 16:40) Chest 1 View Ap/Pa Only (10/19/22 16:40) Ekg Tracing (10/19/22 16:43) Aspirin Chewable Tablet (Baby Aspirin Ch (10/19/22 17:30) Potassium Chloride (Tablet) (K Dur Table (10/19/22 17:45) Iv/Invasive Line Insertion .IV INSERT (10/19/22 17:41) Medications Given in ED Current Medications Medications Dose Ordered Sig/Ren Route Start Time Stop Time Status Last Admin Dose Admin Aspirin 324 mg ONCE ONCE PO 10/19/22 17:30 10/19/22 17:31 DC 10/19/22 17:27 324 MG Potassium Chloride 40 meq ONCE ONCE PO 10/19/22 17:45 10/19/22 17:46 DC 10/19/22 17:45 40 MEQ Vital Signs/I&O 10/19/22 16:35 Temp 36.9 Pulse 99 Resp 16 B/P (MAP) 125/88 (100) Pulse Ox 95 O2 Delivery Room Air Comment My independent review of the twelve-lead EKG shows sinus rhythm at 92 bpm. Normal intervals. Normal axis. There are T wave inversions in 1, 2 3 aVF V5 and V6. These appear to be new from comparisons from 2021. There is no ST segment changes. No ectopy. No STEMI. Departure Communication (Admissions) Patient is hemodynamically stable. Initial EKG shows T wave inversions in the inferolateral leads which are new from 2021 comparison EKGs. She did have a heart cath in 2019 which was reviewed and showed no significant coronary artery disease, only pulmonary hypertension which was thought to be related to diastolic heart failure. Her troponins are negative. Her potassium is significantly low at 2.6. She states she was taken off of potassium last time she was in the hospital. Record review shows she had hyperkalemia and KRISTIE at that time. She was formally on potassium replacement but states that they advised her to not take it anymore after that hospital admission. EKG changes may potentially be related to potassium alone however given that she is having chest pain as well I think we should likely admit her for further evaluation and to monitor EKG and telemetry and be sure these changes subside with correction of her potassium. I spoke Dr. Thomas who accepts the patient in admission at this time. I have ordered 40 mg of potassium p.o. as repletion. The patient does have an IV. I will write bridging orders. Pending transport at this time. Impression Primary Impression: Hypokalemia Additional Impressions: Chest pain Qualified Codes: R07.9 - Chest pain, unspecified Acute electrocardiogram changes Disposition: 30 STILL A PATIENT Condition: Stable Admissions Decision to Admit Reason: Admit from ER (General) Departure-Patient Inst. Referrals: ADDY SMART APRN (PCP) Primary Care Physician [facility] (Family) Primary Care Physician GINNA NELSON DO Oct 19, 2022 16:43
--- NOTE | 2022-10-19 16:54 | Diagnostic Imaging Report ---
EXAMINATION: Chest radiograph, portable AP view. DATE: 10/19/2022 4:52 PM INDICATION: 57-year-old female, chest pain. COMPARISON: May 22, 2022. FINDINGS: Heart size and mediastinal contours are unchanged. There is no identified pneumothorax. There is no large pleural effusion. There is no identified focal airspace consolidation. IMPRESSION: No identified acute cardiopulmonary abnormality. Dictated by: Dictated on workstation # [id number]
[2022-10-19 17:01] LABS: BASOPHILS % (AUTO) 0 % (0-10); EOSINOPHILS # (AUTO) 0.2 10^3/uL (0.0-0.3); EOSINOPHILS % (AUTO) 2 % (0-10); HEMATOCRIT 39 % (35-52); HEMOGLOBIN 12.7 g/dL (11.5-16.0); LYMPHOCYTES # (AUTO) 2.6 10^3/uL (1.0-4.0); LYMPHOCYTES % (AUTO) 31 % (12-44); MEAN CORPUSCULAR HEMOGLOBIN 30 pg (25-34); MEAN CORPUSCULAR HGB CONC 33 g/dL (32-36); MEAN CORPUSCULAR VOLUME 89 fL (80-99); MONOCYTES # (AUTO) 0.5 10^3/uL (0.0-1.0); MONOCYTES % (AUTO) 6 % (0-12); NEUTROPHILS # (AUTO) 4.9 10^3/uL (1.8-7.8); NEUTROPHILS % (AUTO) 60 % (42-75); PLATELET COUNT 309 10^3/uL (130-400); WHITE BLOOD COUNT 8.2 10^3/uL (4.3-11.0)
[2022-10-19 17:21] LABS: BUN/CREATININE RATIO 12; CALCIUM 9.6 MG/DL (8.5-10.1); CARBON DIOXIDE 28 MMOL/L (21-32); CHLORIDE 100 MMOL/L (98-107); CREATININE SERUM 0.66 MG/DL (0.60-1.30); GFR ESTIMATED 102; GLUCOSE 125 MG/DL (70-105); POTASSIUM 2.6 MMOL/L (3.6-5.0); SODIUM 143 MMOL/L (135-145)
[2022-10-19] MEDS ORDERED: ASPIRIN 81 MG CHEW (CHILDREN'S ASA) PO ONE (17:30)
[2022-10-19] MEDS ORDERED: KCL 20 MEQ TAB (K-DUR) PO ONE (17:45)
[2022-10-19] MEDS ORDERED: RT-ALBUTEROL HFA 8.5 GM INHALER IH PRN (18:15)
[2022-10-19 19:42] VITALS: BP 129/80
[2022-10-19 20:10] VITALS: BP 125/88
[2022-10-19] MEDS ORDERED: RT-ALBUTEROL/IPRATROPIUM 3 ML (DUONEB) VIAL INH PRN (20:15)
[2022-10-19] MEDS ORDERED: CATHETER FLUSH 10 ML SYR IVP PRN (21:00)
[2022-10-19] MEDS ORDERED: oxyCODONE/APAP 5/325MG (PERCOCET 5) TABLET PO PRN (21:45)
[2022-10-19] MEDS ORDERED: traZODone 100 MG (DESYREL) TAB PO SCH (22:00)
[2022-10-19] MEDS: CATHETER FLUSH 10 ML SYR IVP SCH (22:32)
[2022-10-19 23:21] VITALS: BP 108/66
[2022-10-20 03:59] VITALS: BP 109/65
[2022-10-20 06:33] LABS: BASOPHILS % (AUTO) 0 % (0-10); EOSINOPHILS # (AUTO) 0.2 10^3/uL (0.0-0.3); EOSINOPHILS % (AUTO) 3 % (0-10); HEMATOCRIT 35 % (35-52); HEMOGLOBIN 11.4 g/dL (11.5-16.0); LYMPHOCYTES # (AUTO) 2.9 10^3/uL (1.0-4.0); LYMPHOCYTES % (AUTO) 40 % (12-44); MEAN CORPUSCULAR HEMOGLOBIN 30 pg (25-34); MEAN CORPUSCULAR HGB CONC 33 g/dL (32-36); MEAN CORPUSCULAR VOLUME 89 fL (80-99); MEAN PLATELET VOLUME 9.4 fL (9.0-12.2); MONOCYTES # (AUTO) 0.6 10^3/uL (0.0-1.0); MONOCYTES % (AUTO) 8 % (0-12); NEUTROPHILS # (AUTO) 3.4 10^3/uL (1.8-7.8); NEUTROPHILS % (AUTO) 48 % (42-75); PLATELET COUNT 252 10^3/uL (130-400); WHITE BLOOD COUNT 7.1 10^3/uL (4.3-11.0)
[2022-10-20 06:36] LABS: ALBUMIN 3.3 GM/DL (3.2-4.5)
[2022-10-20 06:37] LABS: CHLORIDE 104 MMOL/L (98-107); SODIUM 144 MMOL/L (135-145)
[2022-10-20 06:38] LABS: CALCIUM 8.8 MG/DL (8.5-10.1)
[2022-10-20 06:39] LABS: GLUCOSE 83 MG/DL (70-105)
[2022-10-20 06:40] LABS: CARBON DIOXIDE 29 MMOL/L (21-32)
[2022-10-20 06:41] LABS: BILIRUBIN,TOTAL 0.3 MG/DL (0.1-1.0)
[2022-10-20 06:42] LABS: ALKALINE PHOSPHATASE 62 U/L (40-136)
[2022-10-20 06:43] LABS: CREATININE SERUM 0.69 MG/DL (0.60-1.30); GFR ESTIMATED 101
[2022-10-20 06:44] LABS: BUN/CREATININE RATIO 13
[2022-10-20] MEDS: CATHETER FLUSH 10 ML SYR IVP SCH ×2 (06:44→12:53)
[2022-10-20 06:46] LABS: ALANINE AMINOTRANSFERASE 13 U/L (0-55)
[2022-10-20 07:16] VITALS: BP 110/64
--- NOTE | 2022-10-20 07:56 | Consultation-Cardiology ---
HPI-Cardiology Cardiology Consultation: Date of Consultation 10/20/22 Time Seen by a Provider: 08:30 Date of Admission 10-19-22 Attending Physician Katie Rios Aprn Admitting Physician Admitting Physician: Erickson Thomas MD Attending Physician: Chantal Veras DO Consulting Physician Ana Valdes MD HPI: Chief Complaint: Chest pain Ms. Chua is a 57 yr old female who has been admitted to the ED with c/o CP. She reports she developed chest pain approx a week ago that occurs at rest. The pain is sharp, stabbing that radiates sometimes across her chest and into her back. The pain can be mid-sternal to left sided. The pain has never gone away completely in the last week. It changes in intensity, but not r/t activity or emotional stress. She has chronic SOB, which does not change with the chest discomfort. No c/o nausea or palpitations. She reports chronic bilat LE swelling which is gone in the morning and worse at the end of the day. She repo rts she takes Lasix daily, but does not take potassium replacement. 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 She reports she has been having diarrhea for the last several weeks. She reports lightheadedness with changes in position. She currently is reporting mid-epigastric discomfort with palpation. Review of Systems-Cardiology Review of Systems Constitutional: No chills, No fever; lightheadedness Eyes: No vision change Ears/Nose/Throat: No epistaxis, No recent hearing loss Respiratory: As described under HPI Cardiovascular: As described under HPI Gastrointestinal: As described under HPI Genitourinary: No dysuria, No hematuria Musculoskeletal: joint pain, muscle pain Skin: No rash on exposed areas, No ulcerations on exposed areas Psychiatric/Neurological: No seizure, No focal weakness, No syncope Hematologic: bleeding abnormalities BLF-Zshoxa-Svbtjp Hx Patient Social History Smoking Status: Former Smoker 2nd Hand Smoke Exposure: No Have you traveled recently?: No Alcohol Use?: No Pt feels they are or have been: No Tobacco type used: Cigarettes Immunizations Up To Date Date of Pneumonia Vaccine: May 06, 2019 Date of Influenza Vaccine: Apr 08, 2020 Past Medical History PMH As described under Assessment. Family Medical History Family Medical History: She reports her mother had CHF and CAD. She reports 2 brothers with HTN. Family History: Cardiovascular disease 19 MOTHER Colon cancer 19 FATHER G8 BROTHER G8 BROTHER Diabetes mellitus 19 MOTHER G8 BROTHER Allergies and Home Medications Allergies Coded Allergies: Penicillins (Verified Allergy, Unknown, 03/02/20) hydrocodone (Verified Allergy, Unknown, PT HAS REC OXYCODONE IN THE PAST, 03/27/22) latex (Verified Allergy, Unknown, 12/05/19) morphine (Verified Allergy, Unknown, PT HAS REC OXYCODONE IN THE PAST, 03/27/22) Uncoded Allergies: PLASTIC TAPE (Allergy, Mild, 12/05/19) Patient Home Medication List Albuterol Sulfate (Ventolin Hfa) 1 Puff Puff, 2 PUFF PO Q4H PRN for SHORTNESS OF BREATH, (Reported) Entered as Reported by: RANDA BALDWIN on 12/06/1937 Last Action: Reviewed Budesonide/Formoterol Fumarate (Symbicort 160-4.5 Mcg Inhaler) 160 Mcg-4.5 Mcg/Actuation Hfa.aer.ad, 2 PUFF IH BID, (Reported) Entered as Reported by: RANDA BALDWIN on 01/09/221446 Last Action: Reviewed Cariprazine Hydrochloride (Vraylar) 4.5 Mg Capsule, 4.5 MG PO HS, (Reported) Entered as Reported by: RANDA BALDWIN on 10/20/22926 Last Action: Reviewed Cyanocobalamin (Vitamin B-12) (Vitamin B-12) 1,000 Mcg Tablet, 1,000 MCG PO DAILY, (Reported) Entered as Reported by: RANDA BALDWIN on 10/20/22926 Last Action: Reviewed Docusate Sodium (Stool Softener) 100 Mg Capsule, 200 MG PO DAILY, (Reported) Entered as Reported by: RANDA BALDWIN on 01/09/22 144 Last Action: Reviewed Estradiol (Estradiol Tablet) 1 Mg Tablet, 1 MG PO DAILY, (Reported) Entered as Reported by: RANDA BALDWIN on 10/20/22926 Last Action: Reviewed Famotidine (Famotidine) 20 Mg Tablet, 20 MG PO HS, (Reported) Entered as Reported by: RANDA BALDWIN on 10/20/22926 Last Action: Reviewed Furosemide (Furosemide) 40 Mg Tablet, 40 MG PO DAILY, (Reported) Entered as Reported by: RANDA BALDWIN on 01/09/221446 Last Action: Reviewed Gabapentin (Gabapentin) 800 Mg Tablet, 800 MG PO TID, (Reported) Entered as Reported by: RANDA BALDWIN on 01/09/221446 Last Action: Reviewed Ipratropium/Albuterol Sulfate (Iprat-Albut 0.5-3(2.5) mg/3 ml) 0.5 Mg-3 Mg (2.5 Mg Base)/3 Ml Ampul.neb, 3 ML IH Q6H PRN for SHORTNESS OF BREATH, (Reported) Entered as Reported by: RADNA BALDWIN on 01/09/221446 Last Action: Reviewed Lisinopril (Lisinopril) 10 Mg Tablet, 10 MG PO DAILY, (Reported) Entered as Reported by: RANDA BALDWIN on 01/09/221446 Last Action: Reviewed Metformin HCl (Metformin HCl) 1,000 Mg Tablet, 1,000 MG PO DAILY, (Reported) Entered as Reported by: RANDA BALDWIN on 01/09/221446 Last Action: Reviewed Metformin HCl (Metformin HCl) 1,000 Mg Tablet, 500 MG PO HS, (Reported) Entered as Reported by: RANDA BALDWIN on 01/09/221446 Last Action: Reviewed Montelukast Sodium (Montelukast Sodium) 10 Mg Tablet, 10 MG PO DAILY, (Reported) Entered as Reported by: RANDA BALDWIN on 12/06/19836 Last Action: Reviewed Nitrofurantoin Monohyd/M-Cryst (Nitrofurantoin Gallia-Mcr 100 mg) 100 Mg Capsule, 100 MG PO HS, (Reported) Entered as Reported by: RANDA BALDWIN on 10/20/22926 Last Action: Reviewed Ondansetron (Ondansetron Odt) 4 Mg Tab.rapdis, 4 MG SL Q8H PRN for NAUSEA/VOMITING-1ST LINE, (Reported) Entered as Reported by: RANDA BALDWIN on 10/20/22926 Last Action: Reviewed Oxycodone HCl/Acetaminophen (Oxycodone-Acetaminophen 5-325) 5 Mg-325 Mg Tablet, 1 EA PO BID PRN for PAIN-MODERATE (5-7), (Reported) Entered as Reported by: RANDA BALDWIN on 01/09/221446 Last Action: Reviewed Pantoprazole Sodium (Pantoprazole Sodium) 40 Mg Tablet.dr, 40 MG PO BID Prescribed by: CHANTAL VERAS on 10/20/221045 Rivaroxaban (Xarelto) 20 Mg Tablet, 20 MG PO DAILY, (Reported) Entered as Reported by: RANDA BALDWIN on 01/09/221446 Last Action: Reviewed Ropinirole HCl (Ropinirole HCl) 1 Mg Tablet, 1 MG PO HS, (Reported) Entered as Reported by: RANDA BALDWIN on 10/20/22926 Last Action: Reviewed Ropinirole HCl (Ropinirole HCl) 4 Mg Tablet, 4 MG PO HS, (Reported) Entered as Reported by: RANDA BALDWIN on 10/20/22926 Last Action: Reviewed Semaglutide (Ozempic) 1 Mg/0.75 Ml (4 Mg/3 Ml) Pen.injctr, 1 MG SQ SUN, (Reported) Entered as Reported by: RANDA BALDWIN on 10/20/22926 Last Action: Reviewed Sucralfate (Carafate) 1 Gram Tablet, 1 GM PO ACHS Prescribed by: CHANTAL VERAS on 10/20/221045 Tiotropium Cosby (Spiriva) 18 Mcg Aerp, 1 PUFF IH HS, (Reported) Entered as Reported by: RANDA BALDWIN on 01/09/221446 Last Action: Reviewed Tramadol HCl (Tramadol HCl) 50 Mg Tablet, 100 MG PO TID PRN for PAIN-MODERATE (5-7), (Reported) Entered as Reported by: RANDA BALDWIN on 01/09/221446 Last Action: Reviewed Trazodone HCl (Trazodone HCl) 100 Mg Tablet, 100-200 MG PO HS, (Reported) Entered as Reported by: RANDA BALDWIN on 01/09/221446 Last Action: Reviewed Ubrogepant (Ubrelvy) 100 Mg Tablet, 100 MG PO UD PRN for HEADACHE, (Reported) Entered as Reported by: RANDA BALDWIN on 01/09/221446 Last Action: Reviewed Discontinued Medications Atorvastatin Calcium (Atorvastatin Calcium) 10 Mg Tablet, 10 MG PO HS, (Reported) Discontinued Reason: No Longer Taking Entered as Reported by: RANDA BALDWIN on 01/09/221446 Last Action: Discontinued Cariprazine Hydrochloride (Vraylar) 3 Mg Capsule, 3 MG PO DAILY, (Reported) Discontinued Reason: Duplicate Order Entered as Reported by: RANDA BALDWIN on 12/06/19836 Last Action: Discontinued Cetirizine HCl (Zyrtec) 10 Mg Tablet, 10 MG PO HS, (Reported) Discontinued Reason: No Longer Taking Entered as Reported by: SARAH BARRY on 01/16/20 110 Last Action: Discontinued Diazepam (Diazepam) 5 Mg Tablet, 5 MG PO BID PRN for ANXIETY, (Reported) Discontinued Reason: No Longer Taking Entered as Reported by: RANDA BALDWIN on 12/06/19836 Last Action: Discontinued Estradiol (Estrace Tablet) 1 Mg Tablet, 1 MG PO DAILY, (Reported) Discontinued Reason: Duplicate Order Entered as Reported by: SARAH BARRY on 01/16/201105 Last Action: Discontinued Ferrous Sulfate (Ferrous Sulfate) 325 Mg (65 Mg Iron) Tablet, 325 MG PO HS, (Reported) Discontinued Reason: No Longer Taking Entered as Reported by: RANDA BALDWIN on 01/09/221446 Last Action: Discontinued Fluconazole (Diflucan) 100 Mg Tablet, 100 MG PO DAILY Discontinued Reason: No Longer Taking Prescribed by: GRISELDA PEREZ on 03/31/22 133 Last Action: Discontinued L.acidoph & Paracasei,B.lactis (Probiotic) 10 Billion Cell Capsule, 1 EACH PO DAILY, (Reported) Discontinued Reason: No Longer Taking Entered as Reported by: RANDA BALDWIN on 01/09/22 144 Last Action: Discontinued Levofloxacin (Levofloxacin) 500 Mg Tablet, 500 MG PO DAILY Discontinued Reason: No Longer Taking Prescribed by: GRISELDA PEREZ on 03/31/22 1331 Last Action: Discontinued [place] Carbonate ([place] Carbonate) 300 Mg Capsule, 300 MG PO 1300, (Reported) Discontinued Reason: No Longer Taking Entered as Reported by: RANDA BALDWIN on 12/06/19836 Last Action: Discontinued Lubiprostone (Lubiprostone) 8 Mcg Capsule, 8 MCG PO 1300, (Reported) Discontinued Reason: No Longer Taking Entered as Reported by: RANDA BALDWIN on 03/27/22 1507 Last Action: Discontinued Ondansetron (Ondansetron Odt) 4 Mg Tab.rapdis, 4 MG PO Q6H Discontinued Reason: Duplicate Order Prescribed by: GRISELDA PEREZ on 03/31/22 1331 Last Action: Discontinued Potassium Chloride (Potassium Chloride) 20 Meq Tablet.er, 20 MEQ PO HS, (Reported) Discontinued Reason: No Longer Taking Entered as Reported by: RANDA BALDWIN on 01/09/22 145 Last Action: Discontinued Ropinirole HCl (Ropinirole HCl) 3 Mg Tablet, 3 MG PO 2200, (Reported) Discontinued Reason: Duplicate Order Entered as Reported by: RANDA BALDWIN on 01/09/221446 Last Action: Discontinued Semaglutide (Ozempic) 0.25 Mg/0.2 Ml Pen.injctr, 0.25 MG SQ THU, (Reported) Discontinued Reason: No Longer Taking Entered as Reported by: RANDA BALDWIN on 01/09/221446 Last Action: Discontinued Physical Exam-Cardiology Physical Exam Vital Signs/I&O 10/20/22 10/20/22 10/20/22 10/20/22 03:59 07:16 07:16 08:00 Temp 35.8 36.0 Pulse 71 62 63 Resp 16 18 B/P (MAP) 109/65 (80) 110/64 (79) Pulse Ox 95 96 O2 Delivery Room Air Room Air Room Air 10/20/22 10/20/22 10/20/22 10:45 11:15 13:02 Temp 37.2 37.2 Pulse 86 86 Resp 18 18 B/P (MAP) 129/71 (90) 129/71 Pulse Ox 96 93 93 O2 Delivery Room Air Room Air Room Air 10/20/22 00:00 Intake Total 50 ml Balance 50 ml Capillary Refill : Less Than 3 Seconds Constitutional: AAO x 3, well-developed, well-nourished HEENT: PERRL, hearing is well preserved, oral hygience is good Neck: No carotid bruit; carotid pulses are 2 + bilaterally Respiratory: No accessory muscle use, No respiratory distress; chest expansion is symmetric, chest is bilaterally symmetric, lungs clear to auscultation Cardiovascular: regular rate-rhythm; No JVD; S1 and S2 Gastrointestinal: tender (c/o RLQ tenderness and epigastric tenderness), soft, round; No distended, No guarding; audible bowel sounds Extremities: no lower extremity edema bilateral Neurologic/Psychiatric: grossly intact (moves all extremities) Skin: No rash on exposed areas, No ulcerations on exposed areas Data Review Labs Laboratory Tests 10/19/22 16:55: White Blood Count 8.2, Red Blood Count 4.31, Hemoglobin 12.7, Hematocrit 39, Mean Corpuscular Volume 89, Mean Corpuscular Hemoglobin 30, Mean Corpuscular Hemoglobin Concent 33, Red Cell Distribution Width 13.5, Platelet Count 309, Mean Platelet Volume 9.0, Immature Granulocyte % (Auto) 0, Neutrophils (%) (Auto) 60, Lymphocytes (%) (Auto) 31, Monocytes (%) (Auto) 6, Eosinophils (%) (Auto) 2, Basophils (%) (Auto) 0, Neutrophils # (Auto) 4.9, Lymphocytes # (Auto) 2.6, Monocytes # (Auto) 0.5, Eosinophils # (Auto) 0.2, Basophils # (Auto) 0.0, Immature Granulocyte # (Auto) 0.0, Sodium Level 143, Potassium Level 2.6L, Chloride Level 100, Carbon Dioxide Level 28, Anion Gap 15H, Blood Urea Nitrogen 8, Creatinine 0.66, Estimat Glomerular Filtration Rate 102, BUN/Creatinine Ratio 12, Glucose Level 125H, Calcium Level 9.6, Troponin I < 0.30 10/20/22 06:19: White Blood Count 7.1, Red Blood Count 3.86, Hemoglobin 11.4L, Hematocrit 35, Mean Corpuscular Volume 89, Mean Corpuscular Hemoglobin 30, Mean Corpuscular Hemoglobin Concent 33, Red Cell Distribution Width 13.6, Platelet Count 252, Mean Platelet Volume 9.4, Immature Granulocyte % (Auto) 0, Neutrophils (%) (Auto) 48, Lymphocytes (%) (Auto) 40, Monocytes (%) (Auto) 8, Eosinophils (%) (Auto) 3, Basophils (%) (Auto) 0, Neutrophils # (Auto) 3.4, Lymphocytes # (Auto) 2.9, Monocytes # (Auto) 0.6, Eosinophils # (Auto) 0.2, Basophils # (Auto) 0.0, Immature Granulocyte # (Auto) 0.0, Sodium Level 144, Potassium Level 3.0L, Chloride Level 104, Carbon Dioxide Level 29, Anion Gap 11, Blood Urea Nitrogen 9, Creatinine 0.69, Estimat Glomerular Filtration Rate 101, BUN/Creatinine Ratio 13, Glucose Level 83, Calcium Level 8.8, Troponin I < 0.028, Corrected Calcium 9.4, Total Bilirubin 0.3, Aspartate Amino Transf (AST/SGOT) 10, Alanine Aminotransferase (ALT/SGPT) 13, Alkaline Phosphatase 62, Total Protein 6.0L, Albumin 3.3, Triglycerides Level 181H, Cholesterol Level 159, LDL Cholesterol Direct 80, VLDL Cholesterol 36, HDL Cholesterol 49 10/20/22 10:34: Glucometer 93 Radiology NAME: NICKIE CHUA [facility] REC#: [id number] PT STATUS: REG ER : 1965 PHYSICIAN: GINNA NELSON DO ADMIT DATE: 10/19/22/ER FS Signed Date of Exam:10/19/22 CHEST 1 VIEW AP/PA ONLY EXAMINATION: Chest radiograph, portable AP view. DATE: 10/19/2022 4:52 PM INDICATION: 57-year-old female, chest pain. COMPARISON: May 22, 2022. FINDINGS: Heart size and mediastinal contours are unchanged. There is no identified pneumothorax. There is no large pleural effusion. There is no identified focal airspace consolidation. IMPRESSION: No identified acute cardiopulmonary abnormality. Dictated by: Dictated on workstation # [id number] Dict: 10/19/221652 Trans: 10/19/221654 [facility] [id number] Interpreted by: NELSON GRADY MD Electronically signed by: NELSON GRADY MD 10/19/22 1655 A/P-Cardiology Assessment/Admission Diagnosis Chest pain, nonspecific - no evidence of ACS Hypokalemia - likely d/t recent diarrhea and/or chronic diuretic tx without potassium replacement GAY - MPI of January 16, 2020 showed no ischemia or infarction. LVEF 71% - Echocardiogram of January 15, 2020 showed LVEF 50-55%. Grade 1 diastolic dysfunction. PASP 25 mmHg. Mild TR - Complete cardiac cath of Jun 2020: This study is indicative of moderate pulmonary hypertension that appears to be due to diastolic heart failure. Normal global left ventricular systolic function with ejection fraction of 60% to 65%. No significant coronary artery disease is seen on this study. GERD Fibromyalgia Pulmonary HTN - indicated at time of cardiac cath of Jun 2020 (PASP 50/28 with mean 37, PVR 4.13 Wood units) Factor V Leiden mutations with a h/o recurrent DVTs and PE - OAC with Xarelto DM II - managed by PCP Hypertension - managed by PCP Hyperlipidemia - treated with statins and followed by pcp Reports h/o CKD - follows with nephrology services from [facility] in [place], [place] GERD H/O tobaccoism - Quit smoking in or around 1989 COPD - PFTs of 05/14/20 reported to show mod COPD with good bronchodilator response Discussion and Recomendations Chest pain, non-specific - no evidence of ACS - Echocardiogram today - repeat EKG Hypokalemia - likely d/t chronic diuretic tx without potassium replacement and/or diarrhea - replace electrolytes H/O GERD with epigastric tenderness - give Protonix and Pepcid today Continue to monitor lab and replace electrolytes as indicated Further recs will be based on her hospital course We would like to thank medical services for this consult JUNIE FELIZ Oct 20, 2022 07:56
[2022-10-20] MEDS ORDERED: KCL 20 MEQ TAB (K-DUR) PO SCH (08:00)
[2022-10-20] MEDS ORDERED: CARI4.5C PO (09:27)
[2022-10-20] MEDS ORDERED: ROPI1TAB PO (09:27)
[2022-10-20] MEDS ORDERED: ESTR1TAB24 PO (09:27)
[2022-10-20] MEDS ORDERED: ROPI4TAB5 PO (09:27)
[2022-10-20] MEDS ORDERED: SEMA1PEN3 SQ (09:27)
[2022-10-20] MEDS ORDERED: NITR100C10 PO (09:27)
[2022-10-20] MEDS ORDERED: ONDA4TAB11 SL (09:27)
[2022-10-20] MEDS ORDERED: FAMO20TA5 PO (09:27)
[2022-10-20] MEDS ORDERED: CYAN-41 PO (09:27)
[2022-10-20] MEDS ORDERED: KETOROLAC 30 MG/ML VIAL IVP NR (09:30)
[2022-10-20] MEDS ORDERED: FAMOTIDINE 20 MG (PEPCID) TABLET PO NR (09:30)
[2022-10-20] MEDS ORDERED: KCL 20 MEQ TAB (K-DUR) PO NR (09:30)
[2022-10-20] MEDS ORDERED: PANTOPRAZOLE 40 MG (PROTONIX) TAB PO NR (09:30)
[2022-10-20] MEDS ORDERED: RT-ALBUTEROL SULF 2.5 MG/3 ML PRE-MIX VIAL INH NR (10:00)
[2022-10-20] MEDS ORDERED: ENOXAPARIN 40 MG/0.4 ML (LOVENOX) SYR SC SCH (10:00)
[2022-10-20] MEDS ORDERED: ASPIRIN 81 MG CHEW (CHILDREN'S ASA) PO NR (10:00)
[2022-10-20 10:03] LABS: TRIGLYCERIDES 181 MG/DL (<150); VLDL CHOLESTEROL 36 MG/DL (5-40)
[2022-10-20 10:08] LABS: CHOLESTEROL 159 MG/DL (< 200)
[2022-10-20 10:09] LABS: HDL CHOLESTEROL 49 MG/DL (40-60)
[2022-10-20] MEDS ORDERED: SUCR1TAB36 PO (10:46)
[2022-10-20] MEDS ORDERED: PANT40TA52 PO (10:46)
--- NOTE | 2022-10-20 10:57 | Consultation - Surgery ---
RACHEL WILLIAM 10/20/22 1057: History of Present Illness History of Present Illness Patient Consulted On(yamini/time) 10/20/22 10:51 Date Seen by Provider: Oct 20, 2022 Time Seen by Provider: 10:45 Reason for Visit: Chest Pain History of Present Illness 57yo female presented to the ED on 10/19 with CC of chest pain. She claims she has been having the chest pain for a week. She rated the pain as 7/10 and described it as a constant, sharp, retrosternal pain that radiated along her ribs to the left and went coninued into her back, the pain also radiated into her shoulder. Physical activity made the pain worse, resting usually made it better. She tried Prilosec OTC as well as Tums every day when she was having the pain which made the pain mildly improve. The pain is not worse or better at any specific time of day, the pain does not change in relation to any food that she is aware of. Currently she says her pain is in her epigastric region rated at a 6/10, is still radiating to her back but not as severely as before she came to the hospital. She has a PMH of GERD as well as dysphagia for which she has seen Dr. Leonard. Her last EGD was done 1-2 years ago, she could not remember what the findings were. She claimed she knows she needs to follow up with Dr. Leonard soon to get another one done. Allergies and Home Medications Allergies Coded Allergies: Penicillins (Verified Allergy, Unknown, 03/02/20) hydrocodone (Verified Allergy, Unknown, PT HAS REC OXYCODONE IN THE PAST, 03/27/22) latex (Verified Allergy, Unknown, 12/05/19) morphine (Verified Allergy, Unknown, PT HAS REC OXYCODONE IN THE PAST, 03/27/22) Uncoded Allergies: PLASTIC TAPE (Allergy, Mild, 12/05/19) Patient Home Medication List Albuterol Sulfate (Ventolin Hfa) 1 Puff Puff, 2 PUFF PO Q4H PRN for SHORTNESS OF BREATH, (Reported) Entered as Reported by: RANDA BALDWIN on 12/06/19 8336 Last Action: Reviewed Budesonide/Formoterol Fumarate (Symbicort 160-4.5 Mcg Inhaler) 160 Mcg-4.5 Mcg/Actuation Hfa.aer.ad, 2 PUFF IH BID, (Reported) Entered as Reported by: RANDA BALDWIN on 01/09/221446 Last Action: Reviewed Cariprazine Hydrochloride (Vraylar) 4.5 Mg Capsule, 4.5 MG PO HS, (Reported) Entered as Reported by: RANDA BALDWIN on 10/20/22926 Last Action: Reviewed Cyanocobalamin (Vitamin B-12) (Vitamin B-12) 1,000 Mcg Tablet, 1,000 MCG PO DAILY, (Reported) Entered as Reported by: RANDA BALDWIN on 10/20/22926 Last Action: Reviewed Docusate Sodium (Stool Softener) 100 Mg Capsule, 200 MG PO DAILY, (Reported) Entered as Reported by: RANDA BALDWIN on 01/09/221448 Last Action: Reviewed Estradiol (Estradiol Tablet) 1 Mg Tablet, 1 MG PO DAILY, (Reported) Entered as Reported by: RANDA BALDWIN on 10/20/22926 Last Action: Reviewed Famotidine (Famotidine) 20 Mg Tablet, 20 MG PO HS, (Reported) Entered as Reported by: RANDA BALDWIN on 10/20/22926 Last Action: Reviewed Furosemide (Furosemide) 40 Mg Tablet, 40 MG PO DAILY, (Reported) Entered as Reported by: RANDA BALDWIN on 01/09/221446 Last Action: Reviewed Gabapentin (Gabapentin) 800 Mg Tablet, 800 MG PO TID, (Reported) Entered as Reported by: RANDA BALDWIN on 01/09/221446 Last Action: Reviewed Ipratropium/Albuterol Sulfate (Iprat-Albut 0.5-3(2.5) mg/3 ml) 0.5 Mg-3 Mg (2.5 Mg Base)/3 Ml Ampul.neb, 3 ML IH Q6H PRN for SHORTNESS OF BREATH, (Reported) Entered as Reported by: RANDA BALDWIN on 01/09/221446 Last Action: Reviewed Lisinopril (Lisinopril) 10 Mg Tablet, 10 MG PO DAILY, (Reported) Entered as Reported by: RANDA BALDWIN on 01/09/221446 Last Action: Reviewed Metformin HCl (Metformin HCl) 1,000 Mg Tablet, 1,000 MG PO DAILY, (Reported) Entered as Reported by: RANDA BALDWIN on 01/09/221446 Last Action: Reviewed Metformin HCl (Metformin HCl) 1,000 Mg Tablet, 500 MG PO HS, (Reported) Entered as Reported by: RANDA BALDWIN on 01/09/221446 Last Action: Reviewed Montelukast Sodium (Montelukast Sodium) 10 Mg Tablet, 10 MG PO DAILY, (Reported) Entered as Reported by: RANDA BALDWIN on 12/06/19836 Last Action: Reviewed Nitrofurantoin Monohyd/M-Cryst (Nitrofurantoin [place]-Mcr 100 mg) 100 Mg Capsule, 100 MG PO HS, (Reported) Entered as Reported by: RANDA BALDWIN on 10/20/22926 Last Action: Reviewed Ondansetron (Ondansetron Odt) 4 Mg Tab.rapdis, 4 MG SL Q8H PRN for NAUSEA/VOMITING-1ST LINE, (Reported) Entered as Reported by: RANDA BALDWIN on 10/20/22926 Last Action: Reviewed Oxycodone HCl/Acetaminophen (Oxycodone-Acetaminophen 5-325) 5 Mg-325 Mg Tablet, 1 EA PO BID PRN for PAIN-MODERATE (5-7), (Reported) Entered as Reported by: RANDA BALDWIN on 01/09/221446 Last Action: Reviewed Pantoprazole Sodium (Pantoprazole Sodium) 40 Mg Tablet.dr, 40 MG PO BID Prescribed by: DARION VERAS on 10/20/22 104 Rivaroxaban (Xarelto) 20 Mg Tablet, 20 MG PO DAILY, (Reported) Entered as Reported by: RANDA BALDWIN on 01/09/221446 Last Action: Reviewed Ropinirole HCl (Ropinirole HCl) 1 Mg Tablet, 1 MG PO HS, (Reported) Entered as Reported by: RANDA BALDWIN on 10/20/22926 Last Action: Reviewed Ropinirole HCl (Ropinirole HCl) 4 Mg Tablet, 4 MG PO HS, (Reported) Entered as Reported by: RANDA BALDWIN on 10/20/22926 Last Action: Reviewed Semaglutide (Ozempic) 1 Mg/0.75 Ml (4 Mg/3 Ml) Pen.injctr, 1 MG SQ SUN, (Reported) Entered as Reported by: RANDA BALDWIN on 10/20/22926 Last Action: Reviewed Sucralfate (Carafate) 1 Gram Tablet, 1 GM PO ACHS Prescribed by: DARION VERAS on 10/20/22 104 Tiotropium [place] (Spiriva) 18 Mcg Aerp, 1 PUFF IH HS, (Reported) Entered as Reported by: RANDA BALDWIN on 01/09/221446 Last Action: Reviewed Tramadol HCl (Tramadol HCl) 50 Mg Tablet, 100 MG PO TID PRN for PAIN-MODERATE (5-7), (Reported) Entered as Reported by: RANDA BALDWIN on 01/09/221446 Last Action: Reviewed Trazodone HCl (Trazodone HCl) 100 Mg Tablet, 100-200 MG PO HS, (Reported) Entered as Reported by: RANDA BALDWIN on 01/09/221446 Last Action: Reviewed Ubrogepant (Ubrelvy) 100 Mg Tablet, 100 MG PO UD PRN for HEADACHE, (Reported) Entered as Reported by: RANDA BALDWIN on 01/09/221446 Last Action: Reviewed Discontinued Medications Atorvastatin Calcium (Atorvastatin Calcium) 10 Mg Tablet, 10 MG PO HS, (Reported) Discontinued Reason: No Longer Taking Entered as Reported by: RANDA BALDWIN on 01/09/221446 Last Action: Discontinued Cariprazine Hydrochloride (Vraylar) 3 Mg Capsule, 3 MG PO DAILY, (Reported) Discontinued Reason: Duplicate Order Entered as Reported by: RANDA BALDWIN on 12/06/19836 Last Action: Discontinued Cetirizine HCl (Zyrtec) 10 Mg Tablet, 10 MG PO HS, (Reported) Discontinued Reason: No Longer Taking Entered as Reported by: SARAH BARRY on 01/16/201105 Last Action: Discontinued Diazepam (Diazepam) 5 Mg Tablet, 5 MG PO BID PRN for ANXIETY, (Reported) Discontinued Reason: No Longer Taking Entered as Reported by: RANDA BALDWIN on 12/06/19836 Last Action: Discontinued Estradiol (Estrace Tablet) 1 Mg Tablet, 1 MG PO DAILY, (Reported) Discontinued Reason: Duplicate Order Entered as Reported by: SARAH BARRY on 01/16/201105 Last Action: Discontinued Ferrous Sulfate (Ferrous Sulfate) 325 Mg (65 Mg Iron) Tablet, 325 MG PO HS, (Reported) Discontinued Reason: No Longer Taking Entered as Reported by: RANDA BALDWIN on 01/09/221446 Last Action: Discontinued Fluconazole (Diflucan) 100 Mg Tablet, 100 MG PO DAILY Discontinued Reason: No Longer Taking Prescribed by: GRISELDA EPREZ on 03/31/22 133 Last Action: Discontinued L.acidoph & Paracasei,B.lactis (Probiotic) 10 Billion Cell Capsule, 1 EACH PO DAILY, (Reported) Discontinued Reason: No Longer Taking Entered as Reported by: RANDA BALDWIN on 01/09/22 144 Last Action: Discontinued Levofloxacin (Levofloxacin) 500 Mg Tablet, 500 MG PO DAILY Discontinued Reason: No Longer Taking Prescribed by: GRISELDA PEREZ on 03/31/221330 Last Action: Discontinued [place] Carbonate ([place] Carbonate) 300 Mg Capsule, 300 MG PO 1300, (Reported) Discontinued Reason: No Longer Taking Entered as Reported by: RANDA BALDWIN on 12/06/19 0837 Last Action: Discontinued Lubiprostone (Lubiprostone) 8 Mcg Capsule, 8 MCG PO 1300, (Reported) Discontinued Reason: No Longer Taking Entered as Reported by: RANDA BALDWIN on 03/27/22 1507 Last Action: Discontinued Ondansetron (Ondansetron Odt) 4 Mg Tab.rapdis, 4 MG PO Q6H Discontinued Reason: Duplicate Order Prescribed by: GRISELDA PEREZ on 03/31/221330 Last Action: Discontinued Potassium Chloride (Potassium Chloride) 20 Meq Tablet.er, 20 MEQ PO HS, (Reported) Discontinued Reason: No Longer Taking Entered as Reported by: RANDA BALDWIN on 01/09/22 145 Last Action: Discontinued Ropinirole HCl (Ropinirole HCl) 3 Mg Tablet, 3 MG PO 2200, (Reported) Discontinued Reason: Duplicate Order Entered as Reported by: RANDA BALDWIN on 01/09/221446 Last Action: Discontinued Semaglutide (Ozempic) 0.25 Mg/0.2 Ml Pen.injctr, 0.25 MG SQ FRI, (Reported) Discontinued Reason: No Longer Taking Entered as Reported by: RANDA BALDWIN on 01/09/221446 Last Action: Discontinued Past Jsnmlsb-Oywfia-Xalfrv Hx Patient Social History Smoking Status: Former Smoker Former Smoker, Quit: Feb 07, 1996 Type Used: Cigarettes 2nd Hand Smoke Exposure: No Recent Hopitalizations: No Alcohol Use?: No Have you traveled recently?: No Immunizations Up To Date Date of Pneumonia Vaccine: May 06, 2019 Date of Influenza Vaccine: Apr 08, 2020 Seasonal Allergies Seasonal Allergies: No Surgeries History of Surgeries: Yes Surgeries: Abdominal, Appendectomy, Gallbladder Respiratory History of Respiratory Disorde: Yes Respiratory Disorders: Asthma, COPD Cardiovascular History of Cardiac Disorders: Yes (CHF) Cardiac Disorders: High Cholesterol, Hypertension Neurological History of Neurological Disord: Yes (fibromyalgia) Reproductive System [employer] History: 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 Genitourinary History of Genitourinary Disor: No Genitourinary Disorders: Kidney Stones, UTI-Chronic Gastrointestinal History of Gastrointestinal Di: Yes Gastrointestinal Disorders: Gastroesophageal Reflux, Polyps (previous colonoscopy 2 years ago), Gall Bladder Disease Musculoskeletal History of Musculoskeletal Dis: Yes Musculoskeletal Disorders: Arthritis, Fibromyalgia Endocrine History of Endocrine Disorders: Yes Endocrine Disorders: Diabetes, Non-Insulin dep HEENT History of HEENT Disorders: No Loss of Vision: Denies Hearing Impairment: Denies Cancer History of Cancer: No Psychosocial History of Psychiatric Problem: No Behavioral Health Disorders: Anxiety, Depression Integumentary History of Skin or Integumenta: No Blood Transfusions History of Blood Disorders: Yes (Factor V deficiency) Adverse Reaction to a Blood Tr: No Family Medical History Significant Family History: Heart Disease, Cancer (dad age 43 from colon cancer, mom passed at 76 from gynecologic cancer, pt. unsure what kind, brother also has colon cancer diagnosed at 34yo), Diabetes Family Medial History: Cardiovascular disease 19 MOTHER Colon cancer 19 FATHER G8 BROTHER G8 BROTHER Diabetes mellitus 19 MOTHER G8 BROTHER Review of Systems-General Constitutional: No chills, No diaphoresis, No fever; weight loss (intentional 50lb weight loss in 6 months, takes ozempic) EENTM: throat pain (she said she has a nodule on her neck that hurts); No blurred vision, No double vision Respiratory: cough (chronic), dyspnea on exertion (chronic, not worsening), short of breath (chronic) Cardiovascular: chest pain (retrosternal, endorsed radiation to back and left shoulder), Hx of Intervention; No palpitations Gastrointestinal: abdominal pain (epigastric), diarrhea; No dysphagia; heartburn, nausea; No vomiting; other (pt. endorsed black stools but she does take iron supplement) Genitourinary: No dysuria, No frequency, No hematuria Musculoskeletal: back pain (chronic), muscle pain (from fibromyalgia); No muscle stiffness, No muscle cramps, No neck pain Skin: dryness (arms b/l); No hx of skin cancer, No pruritus, No rash Psychiatric/Neurological: Anxiety, Depressed Physical Exam-General Problems Physical Exam Vital Signs Vital Signs - First Documented 10/19/22 10/19/22 16:35 20:10 Temp 36.9 Pulse 99 Resp 16 B/P (MAP) 125/88 (100) Pulse Ox 95 O2 Delivery Room Air FiO2 21 Capillary Refill : Less Than 3 Seconds General Appearance: no apparent distress, obese HEENT: PERRL/EOMI; No pharyngeal erythema, No tonsillar exudate Neck: supple, tender lateral (right side along the superior aspect of her SCM, she expressed several times that this is a nodule that has been there for a long time) Respiratory: lungs clear, normal breath sounds, no respiratory distress, no accessory muscle use, other (pt. had finished a breathing treatment immediately prior) Cardiovascular: regular rate, rhythm, no murmur Gastrointestinal: soft, rebound (RUQ, LLQ), tenderness (epigastric, RUQ, LLQ) Back: no CVA tenderness, no vertebral tenderness Extremities: non-tender, no calf tenderness, pedal edema Neurologic/Psychiatric: alert, oriented x 3 Skin: normal color, warm/dry Lymphatic: no adenopathy (cervical) Data Review Labs Laboratory Tests 10/19/22 16:55: White Blood Count 8.2, Red Blood Count 4.31, Hemoglobin 12.7, Hematocrit 39, Mean Corpuscular Volume 89, Mean Corpuscular Hemoglobin 30, Mean Corpuscular Hemoglobin Concent 33, Red Cell Distribution Width 13.5, Platelet Count 309, Mean Platelet Volume 9.0, Immature Granulocyte % (Auto) 0, Neutrophils (%) (Auto) 60, Lymphocytes (%) (Auto) 31, Monocytes (%) (Auto) 6, Eosinophils (%) (Auto) 2, Basophils (%) (Auto) 0, Neutrophils # (Auto) 4.9, Lymphocytes # (Auto) 2.6, Monocytes # (Auto) 0.5, Eosinophils # (Auto) 0.2, Basophils # (Auto) 0.0, Immature Granulocyte # (Auto) 0.0, Sodium Level 143, Potassium Level 2.6L, Chloride Level 100, Carbon Dioxide Level 28, Anion Gap 15H, Blood Urea Nitrogen 8, Creatinine 0.66, Estimat Glomerular Filtration Rate 102, BUN/Creatinine Ratio 12, Glucose Level 125H, Calcium Level 9.6, Troponin I < 0.30 10/20/22 06:19: White Blood Count 7.1, Red Blood Count 3.86, Hemoglobin 11.4L, Hematocrit 35, Mean Corpuscular Volume 89, Mean Corpuscular Hemoglobin 30, Mean Corpuscular Hemoglobin Concent 33, Red Cell Distribution Width 13.6, Platelet Count 252, Mean Platelet Volume 9.4, Immature Granulocyte % (Auto) 0, Neutrophils (%) (Auto) 48, Lymphocytes (%) (Auto) 40, Monocytes (%) (Auto) 8, Eosinophils (%) (Auto) 3, Basophils (%) (Auto) 0, Neutrophils # (Auto) 3.4, Lymphocytes # (Auto) 2.9, Monocytes # (Auto) 0.6, Eosinophils # (Auto) 0.2, Basophils # (Auto) 0.0, Immature Granulocyte # (Auto) 0.0, Sodium Level 144, Potassium Level 3.0L, Chloride Level 104, Carbon Dioxide Level 29, Anion Gap 11, Blood Urea Nitrogen 9, Creatinine 0.69, Estimat Glomerular Filtration Rate 101, BUN/Creatinine Ratio 13, Glucose Level 83, Calcium Level 8.8, Troponin I < 0.028, Corrected Calcium 9.4, Total Bilirubin 0.3, Aspartate Amino Transf (AST/SGOT) 10, Alanine Aminotransferase (ALT/SGPT) 13, Alkaline Phosphatase 62, Total Protein 6.0L, Albumin 3.3, Triglycerides Level 181H, Cholesterol Level 159, LDL Cholesterol Direct 80, VLDL Cholesterol 36, HDL Cholesterol 49 10/20/22 10:34: Glucometer 93 Assessment/Plan Assessment/Plan Assessment/Plan Chest pain Abdominal pain Hx of GERD, dysphagia 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 and ruled out acute pathology causing chest pain Abdominal pain worse in epigastric region likely secondary to GERD Pt. does have significant intentional weight loss in past 6 months, but no dysphagia or vomiting at this time Will keep pt. on protonix 40mg PO once a day as well as Famotidine 20mg BID, monitor for improvement of abdominal pain If clinical status does not worsen, have pt. follow up for scheduled EGD and colonoscopy with Dr. Leonard outpatient DVT prophylaxis with GIORGIO Laughlin DO 10/20/22 1411: History of Present Illness History of Present Illness Time Seen by Provider: 13:09 History of Present Illness Surgery asked to consult regarding retrosternal pain, cardiac work-up negative. HPI per ED: 57-year-old female presents to the emergency room today for chest pain. She states symptoms started 4 days ago and initially intermittent but has been present all day today. It is described as sharp stabbing in her left chest with radiation into her left neck and arm. She states she has had similar pains in the past but has not had the radiation of the pain before which was her main concern. She denies any fevers or chills. She has had associated headache and body aches. She states she is generally felt unwell over the last 4 days. She has been told by her in house cra that she has had a mild heart attack in the past however she has no stents in her heart. When I saw pt she was doing fine and they were actually going to discharger her. She states she has appointment to see me on November 11. Allergies and Home Medications Allergies Coded Allergies: Penicillins (Verified Allergy, Unknown, 03/02/20) hydrocodone (Verified Allergy, Unknown, PT HAS REC OXYCODONE IN THE PAST, 03/27/22) latex (Verified Allergy, Unknown, 12/05/19) morphine (Verified Allergy, Unknown, PT HAS REC OXYCODONE IN THE PAST, 03/27/22) Uncoded Allergies: PLASTIC TAPE (Allergy, Mild, 12/05/19) Patient Home Medication List Home Medication List Reviewed: Yes Albuterol Sulfate (Ventolin Hfa) 1 Puff Puff, 2 PUFF PO Q4H PRN for SHORTNESS OF BREATH, (Reported) Entered as Reported by: RANDA BALDWIN on 12/06/19 0837 Last Action: Reviewed Budesonide/Formoterol Fumarate (Symbicort 160-4.5 Mcg Inhaler) 160 Mcg-4.5 Mcg/Actuation Hfa.aer.ad, 2 PUFF IH BID, (Reported) Entered as Reported by: RANDA BALDWIN on 01/09/22 1447 Last Action: Reviewed Cariprazine Hydrochloride (Vraylar) 4.5 Mg Capsule, 4.5 MG PO HS, (Reported) Entered as Reported by: RANDA BALDWIN on 10/20/22926 Last Action: Reviewed Cyanocobalamin (Vitamin B-12) (Vitamin B-12) 1,000 Mcg Tablet, 1,000 MCG PO DAILY, (Reported) Entered as Reported by: RANDA BALDWIN on 10/20/22926 Last Action: Reviewed Docusate Sodium (Stool Softener) 100 Mg Capsule, 200 MG PO DAILY, (Reported) Entered as Reported by: RANDA BALDWIN on 01/09/221448 Last Action: Reviewed Estradiol (Estradiol Tablet) 1 Mg Tablet, 1 MG PO DAILY, (Reported) Entered as Reported by: RANDA BALDWIN on 10/20/22926 Last Action: Reviewed Famotidine (Famotidine) 20 Mg Tablet, 20 MG PO HS, (Reported) Entered as Reported by: RANDA BALDWIN on 10/20/22926 Last Action: Reviewed Furosemide (Furosemide) 40 Mg Tablet, 40 MG PO DAILY, (Reported) Entered as Reported by: RANDA BALDWIN on 01/09/221446 Last Action: Reviewed Gabapentin (Gabapentin) 800 Mg Tablet, 800 MG PO TID, (Reported) Entered as Reported by: RANDA BALDWIN on 01/09/221446 Last Action: Reviewed Ipratropium/Albuterol Sulfate (Iprat-Albut 0.5-3(2.5) mg/3 ml) 0.5 Mg-3 Mg (2.5 Mg Base)/3 Ml Ampul.neb, 3 ML IH Q6H PRN for SHORTNESS OF BREATH, (Reported) Entered as Reported by: RANDA BALDWIN on 01/09/221446 Last Action: Reviewed Lisinopril (Lisinopril) 10 Mg Tablet, 10 MG PO DAILY, (Reported) Entered as Reported by: RANDA BALDWIN on 01/09/221446 Last Action: Reviewed Metformin HCl (Metformin HCl) 1,000 Mg Tablet, 1,000 MG PO DAILY, (Reported) Entered as Reported by: RANDA BALDWIN on 01/09/221446 Last Action: Reviewed Metformin HCl (Metformin HCl) 1,000 Mg Tablet, 500 MG PO HS, (Reported) Entered as Reported by: RANDA BALDWIN on 01/09/221446 Last Action: Reviewed Montelukast Sodium (Montelukast Sodium) 10 Mg Tablet, 10 MG PO DAILY, (Reported) Entered as Reported by: RANDA BALDWIN on 12/06/19836 Last Action: Reviewed Nitrofurantoin Monohyd/M-Cryst (Nitrofurantoin [place]-Mcr 100 mg) 100 Mg Capsule, 100 MG PO HS, (Reported) Entered as Reported by: RANDA BALDWIN on 10/20/22926 Last Action: Reviewed Ondansetron (Ondansetron Odt) 4 Mg Tab.rapdis, 4 MG SL Q8H PRN for NAUSEA/ VOMITING-1ST LINE, (Reported) Entered as Reported by: RANDA BALDWIN on 10/20/22926 Last Action: Reviewed Oxycodone HCl/Acetaminophen (Oxycodone-Acetaminophen 5-325) 5 Mg-325 Mg Tablet, 1 EA PO BID PRN for PAIN-MODERATE (5-7), (Reported) Entered as Reported by: RANDA BALDWIN on 01/09/221446 Last Action: Reviewed Pantoprazole Sodium (Pantoprazole Sodium) 40 Mg Tablet.dr, 40 MG PO BID Prescribed by: DARION VERAS on 10/20/22 104 Rivaroxaban (Xarelto) 20 Mg Tablet, 20 MG PO DAILY, (Reported) Entered as Reported by: RANDA BALDWIN on 01/09/221446 Last Action: Reviewed Ropinirole HCl (Ropinirole HCl) 1 Mg Tablet, 1 MG PO HS, (Reported) Entered as Reported by: RANDA BALDWIN on 10/20/22926 Last Action: Reviewed Ropinirole HCl (Ropinirole HCl) 4 Mg Tablet, 4 MG PO HS, (Reported) Entered as Reported by: RANDA BALDWIN on 10/20/22926 Last Action: Reviewed Semaglutide (Ozempic) 1 Mg/0.75 Ml (4 Mg/3 Ml) Pen.injctr, 1 MG SQ SUN, (Reported) Entered as Reported by: RANDA BALDWIN on 10/20/22926 Last Action: Reviewed Sucralfate (Carafate) 1 Gram Tablet, 1 GM PO ACHS Prescribed by: DARION VERAS on 10/20/22 1046 Tiotropium [place] (Spiriva) 18 Mcg Aerp, 1 PUFF IH HS, (Reported) Entered as Reported by: RANDA BALDWIN on 01/09/221446 Last Action: Reviewed Tramadol HCl (Tramadol HCl) 50 Mg Tablet, 100 MG PO TID PRN for PAIN-MODERATE (5-7), (Reported) Entered as Reported by: RANDA BALDWIN on 01/09/221446 Last Action: Reviewed Trazodone HCl (Trazodone HCl) 100 Mg Tablet, 100-200 MG PO HS, (Reported) Entered as Reported by: RANDA BALDWIN on 01/09/221446 Last Action: Reviewed Ubrogepant (Ubrelvy) 100 Mg Tablet, 100 MG PO UD PRN for HEADACHE, (Reported) Entered as Reported by: RANDA BALDWIN on 01/09/221446 Last Action: Reviewed Discontinued Medications Atorvastatin Calcium (Atorvastatin Calcium) 10 Mg Tablet, 10 MG PO HS, (Reported) Discontinued Reason: No Longer Taking Entered as Reported by: RANDA BALDWIN on 01/09/221446 Last Action: Discontinued Cariprazine Hydrochloride (Vraylar) 3 Mg Capsule, 3 MG PO DAILY, (Reported) Discontinued Reason: Duplicate Order Entered as Reported by: RANDA BALDWIN on 12/06/19836 Last Action: Discontinued Cetirizine HCl (Zyrtec) 10 Mg Tablet, 10 MG PO HS, (Reported) Discontinued Reason: No Longer Taking Entered as Reported by: SARAH BARRY on 01/16/201105 Last Action: Discontinued Diazepam (Diazepam) 5 Mg Tablet, 5 MG PO BID PRN for ANXIETY, (Reported) Discontinued Reason: No Longer Taking Entered as Reported by: RANDA BALDWIN on 12/06/19836 Last Action: Discontinued Estradiol (Estrace Tablet) 1 Mg Tablet, 1 MG PO DAILY, (Reported) Discontinued Reason: Duplicate Order Entered as Reported by: SARAH BARRY on 01/16/201105 Last Action: Discontinued Ferrous Sulfate (Ferrous Sulfate) 325 Mg (65 Mg Iron) Tablet, 325 MG PO HS, (Reported) Discontinued Reason: No Longer Taking Entered as Reported by: RANDA BALDWIN on 01/09/221446 Last Action: Discontinued Fluconazole (Diflucan) 100 Mg Tablet, 100 MG PO DAILY Discontinued Reason: No Longer Taking Prescribed by: GRISELDA PEREZ on 03/31/22 1331 Last Action: Discontinued L.acidoph & Paracasei,B.lactis (Probiotic) 10 Billion Cell Capsule, 1 EACH PO DAILY, (Reported) Discontinued Reason: No Longer Taking Entered as Reported by: RANDA BALDWIN on 01/09/22 1449 Last Action: Discontinued Levofloxacin (Levofloxacin) 500 Mg Tablet, 500 MG PO DAILY Discontinued Reason: No Longer Taking Prescribed by: GRISELDA PEREZ on 03/31/22 1331 Last Action: Discontinued [place] Carbonate ([place] Carbonate) 300 Mg Capsule, 300 MG PO 1300, (Reported) Discontinued Reason: No Longer Taking Entered as Reported by: RANDA BALDWIN on 12/06/19 0837 Last Action: Discontinued Lubiprostone (Lubiprostone) 8 Mcg Capsule, 8 MCG PO 1300, (Reported) Discontinued Reason: No Longer Taking Entered as Reported by: RANDA BALDWIN on 03/27/22 1507 Last Action: Discontinued Ondansetron (Ondansetron Odt) 4 Mg Tab.rapdis, 4 MG PO Q6H Discontinued Reason: Duplicate Order Prescribed by: GRISELDA PEREZ on 03/31/22 133 Last Action: Discontinued Potassium Chloride (Potassium Chloride) 20 Meq Tablet.er, 20 MEQ PO HS, (Reported) Discontinued Reason: No Longer Taking Entered as Reported by: RANDA BALDWIN on 01/09/22 1453 Last Action: Discontinued Ropinirole HCl (Ropinirole HCl) 3 Mg Tablet, 3 MG PO 2200, (Reported) Discontinued Reason: Duplicate Order Entered as Reported by: RANDA BALDWIN on 01/09/221446 Last Action: Discontinued Semaglutide (Ozempic) 0.25 Mg/0.2 Ml Pen.injctr, 0.25 MG SQ FRI, (Reported) Discontinued Reason: No Longer Taking Entered as Reported by: RANDA BALDWIN on 01/09/221446 Last Action: Discontinued Past [id number] Hx Patient Social History Smoking Status: Former Smoker Surgeries History of Surgeries: Yes Surgeries: Abdominal, Gallbladder Respiratory History of Respiratory Disorde: Yes Respiratory Disorders: Asthma, COPD Cardiovascular History of Cardiac Disorders: Yes Cardiac Disorders: High Cholesterol, Hypertension Gastrointestinal History of Gastrointestinal Di: Yes Gastrointestinal Disorders: Gastroesophageal Reflux, Polyps (previous colonoscopy 2 years ago), Gall Bladder Disease Musculoskeletal History of Musculoskeletal Dis: Yes Musculoskeletal Disorders: Fibromyalgia Cancer History of Cancer: No Family Medical History Significant Family History: Heart Disease, Cancer (dad age 43 from colon cancer, mom passed at 76 from gynecologic cancer, pt. unsure what kind, brother also has colon cancer diagnosed at 34yo), Diabetes Family Medial History: Cardiovascular disease 19 MOTHER Colon cancer 19 FATHER G8 BROTHER G8 BROTHER Diabetes mellitus 19 MOTHER G8 BROTHER Review of Systems-General Constitutional: No chills, No diaphoresis, No fever; weight loss (intentional 50lb weight loss in 6 months, takes ozempic) EENTM: throat pain (she said she has a nodule on her neck that hurts); No blurred vision, No double vision Respiratory: cough (chronic), dyspnea on exertion (chronic, not worsening), short of breath (chronic) Cardiovascular: chest pain (retrosternal, endorsed radiation to back and left shoulder), Hx of Intervention; No palpitations Gastrointestinal: abdominal pain (epigastric), diarrhea; No dysphagia; heartburn, nausea; No vomiting; other (pt. endorsed black stools but she does take iron supplement) Genitourinary: No dysuria, No frequency, No hematuria Musculoskeletal: back pain (chronic), muscle pain (from fibromyalgia); No muscle stiffness, No muscle cramps, No neck pain Skin: dryness (arms b/l) Psychiatric/Neurological: Anxiety, Depressed Physical Exam-General Problems Physical Exam General Appearance: no apparent distress, obese HEENT: PERRL/EOMI; No scleral icterus (R), No scleral icterus (L) Neck: supple, tender lateral (right side along the superior aspect of her SCM, she expressed several times that this is a nodule that has been there for a long time) Respiratory: lungs clear, normal breath sounds, no respiratory distress, no accessory muscle use, other (pt. had finished a breathing treatment immediately prior) Cardiovascular: regular rate, rhythm, no murmur Gastrointestinal: soft, rebound (RUQ, LLQ), tenderness (epigastric, RUQ, LLQ) Back: no CVA tenderness, no vertebral tenderness Extremities: non-tender, no calf tenderness, pedal edema Neurologic/Psychiatric: alert, oriented x 3 Skin: normal color, warm/dry Lymphatic: no adenopathy (cervical) Assessment/Plan Assessment/Plan Assessment/Plan Chest pain Abdominal pain Hx of GERD, dysphagia 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 and ruled out acute pathology causing chest pain, Abdominal pain worse in epigastric region likely secondary to GERD Pt. does have significant intentional weight loss in past 6 months, but no dysphagia or vomiting at this time Will keep pt. on protonix 40mg PO once a day as well as Famotidine 20mg BID, monitor for improvement of abdominal pain If clinical status does not worsen, have pt. follow up for scheduled EGD and colonoscopy with me as an outpatient DVT prophylaxis with lovenox Supervisory-Addendum Brief Verification & Attestation Participated in pt care: history, MDM, physical Personally performed: exam, history, MDM, supervision of care Care discussed with: Medical Student Procedures: n/a Verification and Attestation of Medical Student E/M Service A medical student performed and documented this service. I then reviewed and verified all information documented by the medical student and made modifications to such information, when appropriate. I personally performed a physical exam, medical decision making and then discussed any differences between the notes and made revisions as necessary to create one note. Giorgio Leonard , 10/20/22 , 14:09 RACHEL WILLIAM Oct 20, 2022 10:57 GIORGIO LEONARD DO Oct 20, 2022 14:11
[2022-10-20] MEDS ORDERED: inSUlin ASPART (NovoLOG) 1 UNIT/0.01 ML (CHARGE PER UNIT) SC SCH (11:00)
[2022-10-20 11:15] VITALS: BP 129/71
--- NOTE | 2022-10-20 11:35 | Short Stay Summary-Hospitalist ---
CRESENCIO SCOTT 10/20/22 1135: History of Present Illness HPI/Chief Complaint Ms. Hamilton is a 57 yo female who presented to the ED on the day of admission with chief complaint of chest pain with radiation to left arm and neck. Pt reports that this started 1 week ago. Pt reports she was sitting when she started to experience sharp chest pain. Pt reports this pain is intermittent and is a 7/10. Pt reports associated nausea, lightheadedness, and diarrhea. Pt reports nothing makes the pain better. She denies any SOB, headache, dizziness, vomiting. EKG in ED showed T wave inversion in ineferlateral leads (new from 2021). Troponins negative. Potassium was low at 2.6. Pt given 40 mg of potassium in ED. No other complaints. Source: patient Exam Limitations: no limitations Date Seen 10/20/22 Time Seen by a Provider: 08:40 Attending Physician Katie Rios Aprn PCP Admitting Physician: Erickson Thomas MD Attending Physician: Chantal Veras DO Referring Physician Date of Admission Oct 19, 2022 at 19:20 Home Medications & Allergies Home Medications Reviewed patient Home Medication Reconciliation performed by pharmacy medication reconciliations hearing aid technician and/or nursing. Patients Allergies have been reviewed. Allergies Allergies Coded Allergies Penicillins (Verified Allergy, Unknown, 03/02/20) hydrocodone (Verified Allergy, Unknown, PT HAS REC OXYCODONE IN THE PAST, 03/27/22) latex (Verified Allergy, Unknown, 12/05/19) morphine (Verified Allergy, Unknown, PT HAS REC OXYCODONE IN THE PAST, 03/27/22) Uncoded Allergies PLASTIC TAPE ( Allergy, Mild, 12/05/19) Past Medical/Social/Family Hx Patient Social History Tobacco Use?: No Tobacco type used: Cigarettes Smoking Status: Former Smoker Smokeless Tobacco Frequency: Never a User Use of E-Cig and/or Vaping dev: No Substance use?: No Alcohol Use?: No Pt stated abuse/neglect: No Immunizations Up To Date Influenza Vaccine Up-to-Date: Yes; Up-to-Date First/Initial COVID19 Vaccinat: 2020 Second COVID19 Vaccination Musa: 2020 Tetanus Booster (TDap): Unknown Hepatitis A: Yes Hepatitis B: Yes TB Skin Test: Negative Date of Pneumonia Vaccine: May 06, 2019 Current Status status: No status: No Advance Directives: No Advance Directive Location: Home Primary Language: Singaporean Preferred Spoken Language: Singaporean Is interpretation needed?: No Sensory deficits: Vision impairment, Hearing impairment Past Medical History PMHx: DMII Asthma COPD/emphysema HTN Fibromyalgia CHF DVT and PE Factor V leiden Anxiety SurgHx: Hernia repair x 4 Epigastric "growth removed" Cholecystectomy 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 Appendectomy EGD Colonoscopy, benign polyp 2020 Review of Systems Constitutional: No chills, No fever; other (lightheaded ) EENTM: no symptoms reported Respiratory: No cough, No short of breath Cardiovascular: chest pain; No Hx of Intervention Gastrointestinal: RUQ, abdominal pain (RUQ) Genitourinary: no symptoms reported Musculoskeletal: no symptoms reported Skin: no symptoms reported All Other Systems Reviewed Negative Unless Noted: Yes Physical Exam Physical Exam Vital Signs Vital Signs - First Documented 10/19/22 10/19/22 16:35 20:10 Temp 36.9 Pulse 99 Resp 16 B/P (MAP) 125/88 (100) Pulse Ox 95 O2 Delivery Room Air FiO2 21 Capillary Refill : Less Than 3 Seconds Height, Weight, BMI Height: 5'2.00" Weight: 180lbs. oz. [id number]; 32.37 BMI Method:Estimated General Appearance: No Apparent Distress, WD/WN HEENT: Normal ENT Inspection, Pharynx Normal Neck: Full Range of Motion, Normal Inspection, Non Tender, Supple Respiratory: Lungs Clear, Normal Breath Sounds, No Accessory Muscle Use, No Respiratory Distress, Other (Chest is tender to palpation diffusely. No cre pitus or deformity.) Cardiovascular: Regular Rate, Rhythm, No Murmur, Normal Peripheral Pulses Gastrointestinal: Normal Bowel Sounds, Soft, Tenderness (RUQ) Extremity: Normal Capillary Refill, Normal Inspection, Normal Range of Motion, Non Tender, No Calf Tenderness, No Pedal Edema Neurologic/Psychiatric: Alert, Oriented x3, Normal Mood/Affect Skin: Normal Color, Warm/Dry Lymphatic: No Adenopathy Results Results/Procedures Labs Laboratory Tests 10/19/22 16:55 10/20/22 06:19 Patient resulted labs reviewed. Imaging: Reviewed Imaging Report Short Stay Diagnosis Discharge Diagnosis-Short Stay Admission Diagnosis Chest pain Final Discharge Diagnosis Non- cardiac chest pain Hypokalemia Conclusion Plan HTN Pulmonary HTN Factor 5 COPD/asthma DM2 GERD Anxiety/depression Fibromyalgia Chest pain hypokalemia - likely due to recent diarrhea or Lasix w/out replacement Nausea Duoneb Aspirin Pepcid Protonix pottasium replacement per protocol Consult cardio and gen surg ACS ruled out continue home meds as indicated Insulin sliding scale DVT prophylaxis: Lovenox Disposition: follow up with Dr. Garcia for outpt management CHANTAL VERAS DO 10/21/22 0457: Past Medical/Social/Family Hx Patient Social History Marrital Status: single Employed/Student: retired Physical Exam Physical Exam General Appearance: No Apparent Distress, WD/WN, Chronically ill Respiratory: Lungs Clear, Normal Breath Sounds Cardiovascular: Regular Rate, Rhythm Short Stay Diagnosis Conclusion Plan DC Supervisory-Addendum Brief Verification & Attestation Participated in pt care: history, MDM, physical Personally performed: exam, history, MDM, supervision of care Care discussed with: Medical Student Procedures: n/a Results interpretation: Verified all documentation Verification and Attestation of Medical Student E/M Service A medical student performed and documented this service in my presence. I reviewed and verified all information documented by the medical student and made modifications to such information, when appropriate. I personally performed the physical exam and medical decision making. Chantal Veras Oct 21, 2022,04:56 CRESENCIO SCOTT Oct 20, 2022 11:35 CHANTAL VERAS DO Oct 21, 2022 04:57
[2022-10-20 13:02] VITALS: BP 129/71
--- NOTE | 2022-10-20 14:35 | Consultation-Cardiology ---
HPI-Cardiology Cardiology Consultation: Date of Consultation 10/20/22 Time Seen by a Provider: 09:15 Date of Admission Attending Physician Katie Rios Aprn Admitting Physician Admitting Physician: Erickson Thomas MD Attending Physician: Chantal Desir DO Consulting Physician SORAYA DE LA TORRE MD, MA, FACP, FACC, FSCAI, CCDS Physician requesting consult: Dr Desir HPI: Chief Complaint: Chest pain Ms. Hamilton is a 57 yr old female who has been admitted to the ED with c/o CP. She reports she developed chest pain approx a week ago that waxes and wanes but does not resolve. The pain is sharp, stabbing that radiates sometimes across her chest and into her back. The pain can be lower mid-sternal/epgastric or left sided. The pain has never gone away completely in the last week. It changes in intensity, but not r/t activity or emotional stress. She has chronic SOB, which does not change with the chest discomfort. No c/o nausea or palpitations. She reports chronic bilat LE swelling which is gone in the morning and worse at the end of the day. She reports she takes Lasix daily, but does not take potassium replacement. She reports she sees a director prospect with [facility]. She reports she has been having diarrhea for the last several weeks. She reports lightheadedness with changes in position. She currently is reporting mid-epigastric discomfort with palpation which has been present all along (the last week of chest discomfort). Review of Systems-Cardiology Review of Systems Constitutional: No chills, No fever; lightheadedness Eyes: No vision change Ears/Nose/Throat: No epistaxis, No recent hearing loss Respiratory: As described under HPI Cardiovascular: As described under HPI Gastrointestinal: As described under HPI Genitourinary: No dysuria, No hematuria Musculoskeletal: joint pain, muscle pain Skin: No rash on exposed areas, No ulcerations on exposed areas Psychiatric/Neurological: No seizure, No focal weakness, No syncope Hematologic: bleeding abnormalities All Other Systems Reviewed Negative Unless Noted: Yes CDW-Kkasgy-Qiaeck Hx Patient Social History Smoking Status: Former Smoker 2nd Hand Smoke Exposure: No Have you traveled recently?: No Alcohol Use?: No Pt feels they are or have been: No Tobacco type used: Cigarettes Immunizations Up To Date Date of Pneumonia Vaccine: May 06, 2019 Date of Influenza Vaccine: Apr 08, 2020 Past Medical History PMH As described under Assessment. Family Medical History Family Medical History: She reports her mother had CHF and CAD. She reports 2 brothers with HTN. Family History: Cardiovascular disease 19 MOTHER Colon cancer 19 FATHER G8 BROTHER G8 BROTHER Diabetes mellitus 19 MOTHER G8 BROTHER Allergies and Home Medications Allergies Coded Allergies: Penicillins (Verified Allergy, Unknown, 03/02/20) hydrocodone (Verified Allergy, Unknown, PT HAS REC OXYCODONE IN THE PAST, 03/27/22) latex (Verified Allergy, Unknown, 12/05/19) morphine (Verified Allergy, Unknown, PT HAS REC OXYCODONE IN THE PAST, 03/27/22) Uncoded Allergies: PLASTIC TAPE (Allergy, Mild, 12/05/19) Patient Home Medication List Home Medication List Reviewed: Yes Albuterol Sulfate (Ventolin Hfa) 1 Puff Puff, 2 PUFF PO Q4H PRN for SHORTNESS OF BREATH, (Reported) Entered as Reported by: RANDA BALDWIN on 12/06/19836 Last Action: Reviewed Budesonide/Formoterol Fumarate (Symbicort 160-4.5 Mcg Inhaler) 160 Mcg-4.5 Mcg/Actuation Hfa.aer.ad, 2 PUFF IH BID, (Reported) Entered as Reported by: RANDA BALDWIN on 01/09/221446 Last Action: Reviewed Cariprazine Hydrochloride (Vraylar) 4.5 Mg Capsule, 4.5 MG PO HS, (Reported) Entered as Reported by: RANDA BALDWIN on 10/20/22926 Last Action: Reviewed Cyanocobalamin (Vitamin B-12) (Vitamin B-12) 1,000 Mcg Tablet, 1,000 MCG PO DAILY, (Reported) Entered as Reported by: RANDA BALDWIN on 10/20/22926 Last Action: Reviewed Docusate Sodium (Stool Softener) 100 Mg Capsule, 200 MG PO DAILY, (Reported) Entered as Reported by: RANDA BALDWIN on 01/09/221448 Last Action: Reviewed Estradiol (Estradiol Tablet) 1 Mg Tablet, 1 MG PO DAILY, (Reported) Entered as Reported by: RANDA BALDWIN on 10/20/22926 Last Action: Reviewed Famotidine (Famotidine) 20 Mg Tablet, 20 MG PO HS, (Reported) Entered as Reported by: RANDA BALDWIN on 10/20/22926 Last Action: Reviewed Furosemide (Furosemide) 40 Mg Tablet, 40 MG PO DAILY, (Reported) Entered as Reported by: RANDA BALDWIN on 01/09/221446 Last Action: Reviewed Gabapentin (Gabapentin) 800 Mg Tablet, 800 MG PO TID, (Reported) Entered as Reported by: RANDA BALDWIN on 01/09/221446 Last Action: Reviewed Ipratropium/Albuterol Sulfate (Iprat-Albut 0.5-3(2.5) mg/3 ml) 0.5 Mg-3 Mg (2.5 Mg Base)/3 Ml Ampul.neb, 3 ML IH Q6H PRN for SHORTNESS OF BREATH, (Reported) Entered as Reported by: RANDA BALDWIN on 01/09/221446 Last Action: Reviewed Lisinopril (Lisinopril) 10 Mg Tablet, 10 MG PO DAILY, (Reported) Entered as Reported by: RANDA BALDWIN on 01/09/221446 Last Action: Reviewed Metformin HCl (Metformin HCl) 1,000 Mg Tablet, 1,000 MG PO DAILY, (Reported) Entered as Reported by: RANDA BALDWIN on 01/09/221446 Last Action: Reviewed Metformin HCl (Metformin HCl) 1,000 Mg Tablet, 500 MG PO HS, (Reported) Entered as Reported by: RANDA BALDWIN on 01/09/221446 Last Action: Reviewed Montelukast Sodium (Montelukast Sodium) 10 Mg Tablet, 10 MG PO DAILY, (Reported) Entered as Reported by: RANDA BALDWIN on 12/06/19 08 Last Action: Reviewed Nitrofurantoin Monohyd/M-Cryst (Nitrofurantoin [place]-Mcr 100 mg) 100 Mg Capsule, 100 MG PO HS, (Reported) Entered as Reported by: RANDA BALDWIN on 10/20/22926 Last Action: Reviewed Ondansetron (Ondansetron Odt) 4 Mg Tab.rapdis, 4 MG SL Q8H PRN for NAUSEA/VOMITING-1ST LINE, (Reported) Entered as Reported by: RANDA BALDWIN on 10/20/22926 Last Action: Reviewed Oxycodone HCl/Acetaminophen (Oxycodone-Acetaminophen 5-325) 5 Mg-325 Mg Tablet, 1 EA PO BID PRN for PAIN-MODERATE (5-7), (Reported) Entered as Reported by: RANDA BALDWIN on 01/09/221446 Last Action: Reviewed Pantoprazole Sodium (Pantoprazole Sodium) 40 Mg Tablet.dr, 40 MG PO BID Prescribed by: CHANTAL DESIR on 10/20/221045 Rivaroxaban (Xarelto) 20 Mg Tablet, 20 MG PO DAILY, (Reported) Entered as Reported by: RANDA BALDWIN on 01/09/221446 Last Action: Reviewed Ropinirole HCl (Ropinirole HCl) 1 Mg Tablet, 1 MG PO HS, (Reported) Entered as Reported by: RANDA BALDWIN on 10/20/22926 Last Action: Reviewed Ropinirole HCl (Ropinirole HCl) 4 Mg Tablet, 4 MG PO HS, (Reported) Entered as Reported by: RANDA BALDWIN on 10/20/22926 Last Action: Reviewed Semaglutide (Ozempic) 1 Mg/0.75 Ml (4 Mg/3 Ml) Pen.injctr, 1 MG SQ SUN, (Reported) Entered as Reported by: RANDA BALDWIN on 10/20/22926 Last Action: Reviewed Sucralfate (Carafate) 1 Gram Tablet, 1 GM PO ACHS Prescribed by: CHANTAL DESIR on 10/20/221045 Tiotropium [place] (Spiriva) 18 Mcg Aerp, 1 PUFF IH HS, (Reported) Entered as Reported by: RANDA BALDWIN on 01/09/221446 Last Action: Reviewed Tramadol HCl (Tramadol HCl) 50 Mg Tablet, 100 MG PO TID PRN for PAIN-MODERATE (5-7), (Reported) Entered as Reported by: RANDA BALDWIN on 01/09/221446 Last Action: Reviewed Trazodone HCl (Trazodone HCl) 100 Mg Tablet, 100-200 MG PO HS, (Reported) Entered as Reported by: RANDA BALDWIN on 01/09/221446 Last Action: Reviewed Ubrogepant (Ubrelvy) 100 Mg Tablet, 100 MG PO UD PRN for HEADACHE, (Reported) Entered as Reported by: RANDA BALDWIN on 01/09/221446 Last Action: Reviewed Discontinued Medications Atorvastatin Calcium (Atorvastatin Calcium) 10 Mg Tablet, 10 MG PO HS, (Reported) Discontinued Reason: No Longer Taking Entered as Reported by: RANDA BALDWIN on 01/09/221446 Last Action: Discontinued Cariprazine Hydrochloride (Vraylar) 3 Mg Capsule, 3 MG PO DAILY, (Reported) Discontinued Reason: Duplicate Order Entered as Reported by: RANDA BALDWIN on 12/06/19836 Last Action: Discontinued Cetirizine HCl (Zyrtec) 10 Mg Tablet, 10 MG PO HS, (Reported) Discontinued Reason: No Longer Taking Entered as Reported by: SARAH BARRY on 01/16/201105 Last Action: Discontinued Diazepam (Diazepam) 5 Mg Tablet, 5 MG PO BID PRN for ANXIETY, (Reported) Discontinued Reason: No Longer Taking Entered as Reported by: RANDA BALDWIN on 12/06/19836 Last Action: Discontinued Estradiol (Estrace Tablet) 1 Mg Tablet, 1 MG PO DAILY, (Reported) Discontinued Reason: Duplicate Order Entered as Reported by: SARAH BARRY on 01/16/201105 Last Action: Discontinued Ferrous Sulfate (Ferrous Sulfate) 325 Mg (65 Mg Iron) Tablet, 325 MG PO HS, (Reported) Discontinued Reason: No Longer Taking Entered as Reported by: RANDA BALDWIN on 01/09/221446 Last Action: Discontinued Fluconazole (Diflucan) 100 Mg Tablet, 100 MG PO DAILY Discontinued Reason: No Longer Taking Prescribed by: GRISELDA PEREZ on 03/31/221330 Last Action: Discontinued L.acidoph & Paracasei,B.lactis (Probiotic) 10 Billion Cell Capsule, 1 EACH PO DAILY, (Reported) Discontinued Reason: No Longer Taking Entered as Reported by: RANDA BALDWIN on 01/09/221448 Last Action: Discontinued Levofloxacin (Levofloxacin) 500 Mg Tablet, 500 MG PO DAILY Discontinued Reason: No Longer Taking Prescribed by: GIRSELDA PEREZ on 03/31/221330 Last Action: Discontinued Lyon Carbonate (Lyon Carbonate) 300 Mg Capsule, 300 MG PO 1300, (Reported) Discontinued Reason: No Longer Taking Entered as Reported by: RANDA BALDWIN on 12/06/19836 Last Action: Discontinued Lubiprostone (Lubiprostone) 8 Mcg Capsule, 8 MCG PO 1300, (Reported) Discontinued Reason: No Longer Taking Entered as Reported by: RANDA BALDWIN on 03/27/22 1507 Last Action: Discontinued Ondansetron (Ondansetron Odt) 4 Mg Tab.rapdis, 4 MG PO Q6H Discontinued Reason: Duplicate Order Prescribed by: GRISELDA PEREZ on 03/31/22 1331 Last Action: Discontinued Potassium Chloride (Potassium Chloride) 20 Meq Tablet.er, 20 MEQ PO HS, (Reported) Discontinued Reason: No Longer Taking Entered as Reported by: RANDA BALDWIN on 01/09/22 1453 Last Action: Discontinued Ropinirole HCl (Ropinirole HCl) 3 Mg Tablet, 3 MG PO 2200, (Reported) Discontinued Reason: Duplicate Order Entered as Reported by: RANDA BALDWIN on 01/09/22 1447 Last Action: Discontinued Semaglutide (Ozempic) 0.25 Mg/0.2 Ml Pen.injctr, 0.25 MG SQ FRI, (Reported) Discontinued Reason: No Longer Taking Entered as Reported by: RANDA ABLDWIN on 01/09/22 1447 Last Action: Discontinued Physical Exam-Cardiology Physical Exam Vital Signs/I&O 10/20/22 10/20/22 10/20/22 10/20/22 03:59 07:16 07:16 08:00 Temp 35.8 36.0 Pulse 71 62 63 Resp 16 18 B/P (MAP) 109/65 (80) 110/64 (79) Pulse Ox 95 96 O2 Delivery Room Air Room Air Room Air 10/20/22 10/20/22 10/20/22 10:45 11:15 13:02 Temp 37.2 37.2 Pulse 86 86 Resp 18 18 B/P (MAP) 129/71 (90) 129/71 Pulse Ox 96 93 93 O2 Delivery Room Air Room Air Room Air 10/20/22 00:00 Intake Total 50 ml Balance 50 ml Capillary Refill : Less Than 3 Seconds Constitutional: AAO x 3, well-developed, well-nourished HEENT: PERRL, hearing is well preserved, oral hygience is good Neck: No carotid bruit; carotid pulses are 2 + bilaterally Respiratory: No accessory muscle use, No respiratory distress; chest expansion is symmetric, chest is bilaterally symmetric, lungs clear to auscultation Cardiovascular: regular rate-rhythm; No JVD; S1 and S2 Gastrointestinal: tender (epigastric tenderness present), soft, round; No distended, No guarding; audible bowel sounds Extremities: no lower extremity edema bilateral Neurologic/Psychiatric: other (moves all extremities) Skin: normal color, warm/dry; No cool, No diaphoresis, No rash on exposed a reas, No ulcerations on exposed areas Data Review Labs Laboratory Tests 10/19/22 16:55: White Blood Count 8.2, Red Blood Count 4.31, Hemoglobin 12.7, Hematocrit 39, Mean Corpuscular Volume 89, Mean Corpuscular Hemoglobin 30, Mean Corpuscular Hemoglobin Concent 33, Red Cell Distribution Width 13.5, Platelet Count 309, Mean Platelet Volume 9.0, Immature Granulocyte % (Auto) 0, Neutrophils (%) (Auto) 60, Lymphocytes (%) (Auto) 31, Monocytes (%) (Auto) 6, Eosinophils (%) (Auto) 2, Basophils (%) (Auto) 0, Neutrophils # (Auto) 4.9, Lymphocytes # (Auto) 2.6, Monocytes # (Auto) 0.5, Eosinophils # (Auto) 0.2, Basophils # (Auto) 0.0, Immature Granulocyte # (Auto) 0.0, Sodium Level 143, Potassium Level 2.6L, Chloride Level 100, Carbon Dioxide Level 28, Anion Gap 15H, Blood Urea Nitrogen 8, Creatinine 0.66, Estimat Glomerular Filtration Rate 102, BUN/Creatinine Ratio 12, Glucose Level 125H, Calcium Level 9.6, Troponin I < 0.30 10/20/22 06:19: White Blood Count 7.1, Red Blood Count 3.86, Hemoglobin 11.4L, Hematocrit 35, Mean Corpuscular Volume 89, Mean Corpuscular Hemoglobin 30, Mean Corpuscular Hemoglobin Concent 33, Red Cell Distribution Width 13.6, Platelet Count 252, Mean Platelet Volume 9.4, Immature Granulocyte % (Auto) 0, Neutrophils (%) (Auto) 48, Lymphocytes (%) (Auto) 40, Monocytes (%) (Auto) 8, Eosinophils (%) (Auto) 3, Basophils (%) (Auto) 0, Neutrophils # (Auto) 3.4, Lymphocytes # (Auto) 2.9, Monocytes # (Auto) 0.6, Eosinophils # (Auto) 0.2, Basophils # (Auto) 0.0, Immature Granulocyte # (Auto) 0.0, Sodium Level 144, Potassium Level 3.0L, Chloride Level 104, Carbon Dioxide Level 29, Anion Gap 11, Blood Urea Nitrogen 9, Creatinine 0.69, Estimat Glomerular Filtration Rate 101, BUN/Creatinine Ratio 13, Glucose Level 83, Calcium Level 8.8, Troponin I < 0.028, Corrected Calcium 9.4, Total Bilirubin 0.3, Aspartate Amino Transf (AST/SGOT) 10, Alanine Aminotransferase (ALT/SGPT) 13, Alkaline Phosphatase 62, Total Protein 6.0L, Albumin 3.3, Triglycerides Level 181H, Cholesterol Level 159, LDL Cholesterol Direct 80, VLDL Cholesterol 36, HDL Cholesterol 49 10/20/22 10:34: Glucometer 93 Laboratory Tests 10/19/22 16:55 10/20/22 06:19 A/P-Cardiology Assessment/Admission Diagnosis Chest pain, nonspecific, reproducible on palpation - no evidence of ACS, serial cardiac enzymes negative for PR - ECG with nonspecific ST abnormality (likely due to elec abnormality from recent diarrhea) stable - Echo on 10/20/22: LVEF 55-60%, no RWMA, PASP within normal limits Hypokalemia - likely d/t recent diarrhea and/or chronic diuretic tx without potassium replacement GAY - MPI of January 16, 2020 showed no ischemia or infarction. LVEF 71% - Echocardiogram of January 15, 2020 showed LVEF 50-55%. Grade 1 diastolic dysfunction. PASP 25 mmHg. Mild TR - Complete cardiac cath of Jun 2020: This study is indicative of moderate pulmonary hypertension that appears to be due to diastolic heart failure. Normal global left ventricular systolic function with ejection fraction of 60% to 65%. No significant coronary artery disease is seen on this study. GERD Fibromyalgia Pulmonary HTN - indicated at time of cardiac cath of Jun 2020 (PASP 50/28 with mean 37, PVR 4.13 Wood units) Factor V Leiden mutations with a h/o recurrent DVTs and PE - OAC with Xarelto DM II - managed by PCP Hypertension - managed by PCP Hyperlipidemia - treated with statins and followed by pcp Reports h/o CKD - follows with nephrology services from [facility] in [place], [place] GERD H/O tobaccoism - Quit smoking in or around 1989 COPD - PFTs of 05/14/20 reported to show mod COPD with good bronchodilator response Discussion and Recomendations * I saw the patient at 9:15 and completed the note after having reviewed her echo in the afternoon * No evidence of ACS. Chest discomfort is reproducible to palpation. Appear noncardiac * Replenish K * Add PPI to regimen * She wishes to go home. Ok for d/c from cardiac standpoint. Advised outpt f/u SORAYA DE LA TORRE MD FACP FAC CCDS Oct 20, 2022 14:35
[2022-10-20] MEDS ORDERED: FAMOTIDINE 20 MG (PEPCID) TABLET PO SCH (21:00)
[2022-10-21] MEDS ORDERED: ASPIRIN 81 MG CHEW (CHILDREN'S ASA) PO SCH (09:00)
[2022-10-21] MEDS ORDERED: PANTOPRAZOLE 40 MG (PROTONIX) TAB PO SCH (09:00)
== END 2022-10-20 15:10 | disposition home or self-care (01) | DRG 313 ==
LOC: EDUNIT# 16:30 → ER FS 16:32 → 4TH 19:20 → OBSVTOIN 19:20
PROVIDERS: ADMIT Internal Medicine; ATTEND Internal Medicine
DX: R07.89 Other chest pain (principal); D68.2 Hereditary deficiency of other clotting factors; E87.6 Hypokalemia; I27.20 Pulmonary hypertension, unspecified; J44.9 Chronic obstructive pulmonary disease, unspecified; E11.9 Type 2 diabetes mellitus without complications; K21.9 Gastro-esophageal reflux disease without esophagitis; F41.9 Anxiety disorder, unspecified; F32.A Depression, unspecified; M79.7 Fibromyalgia; R11.2 Nausea with vomiting, unspecified; Z86.718 Personal history of other venous thrombosis and embolism; Z86.711 Personal history of pulmonary embolism; I50.9 Heart failure, unspecified; I11.0 Hypertensive heart disease with heart failure; Z87.891 Personal history of nicotine dependence; Z79.84 Long term (current) use of oral hypoglycemic drugs; Z79.899 Other long term (current) drug therapy; Z79.01 Long term (current) use of anticoagulants; E78.5 Hyperlipidemia, unspecified
CPT/HCPCS: 36415; 71045; 80048; 80053; 80061; 82947; 84484; 85025; 93005; 93306; 94640

== ENCOUNTER 2022-10-29 10:31 | Outpatient (CLI) | payer MEDICARE, MEDICAID ==
[~2022-10-29] VITALS: Ht 154.9 cm; Wt 72.6 kg
[~2022-10-29 10:31] MED LIST changes: +CARI4.5C PO; +CYAN-41 PO; +FAMO20TA5 PO; +NITR100C10 PO; +ONDA4TAB11 SL; +PANT40TA52 PO; +ROPI1TAB PO; +ROPI4TAB5 PO; +SEMA1PEN3 SQ; +SUCR1TAB36 PO
[2022-10-29] MEDS ORDERED: PANT40TA52 PO (13:14)
[2022-10-29] MEDS ORDERED: SUCR1TAB PO (13:14)
== END 2022-10-29 13:18 | disposition home or self-care (01) ==
LOC: PREOP 10:31
PROVIDERS: ATTEND Surgery
DX: Z01.818 Encounter for other preprocedural examination (principal)

== ENCOUNTER → 2023-04-14 | Outpatient (CLI) | payer MEDICARE, MEDICAID ==
[~2023-04-14] VITALS: Ht 152 cm; Wt 65.0 kg
[~2023-04-14] MED LIST changes: +CATHETER FLUSH 10 ML SYR IVP PRN; +DICY-11 PO; -DICY10CA12 PO; +POTA-330 PO; -POTA-51 PO; -PREG150C46 PO; +PREG150C47 PO; +REGADENOSON 0.4 MG/5 ML SYR IV ONE; -ROPI1TAB PO; +ROPI1TAB46 PO; +ROPI3TAB21 PO; -ROPI3TAB4 PO; +ROPI4TAB40 PO; -ROPI4TAB5 PO; +SUCR1TAB PO
[2023-04-14 09:41] VITALS: BP 193/123
--- NOTE | 2023-04-16 12:26 | STRESS TEST ---
DATE OF SERVICE: 04/14/2023 RESTING AND POST REGADENOSON TECHNETIUM-99M TETROFOSMIN SPECT CT IMAGING CLINICAL DIAGNOSIS: Chest discomfort. ORDERING PHYSICIAN: Dr. Valeds. PRIMARY PHYSICIAN: Josiane Mendoza APRN. Baseline images were carried out after injection of 10 mCi of technetium-99m tetrofosmin. This was followed by 0.4 mg regadenoson and 29.7 mCi of technetium-99m tetrofosmin for stress imaging. The electrocardiogram showed sinus rhythm at baseline. There was subtle nonspecific ST abnormality, which did not change significantly during the study. The patient tolerated the procedure well. Review of images at rest and following stress does not indicate any distinct perfusion defects consistent with significant myocardial ischemia or infarction. Gated images show normal global left ventricular systolic function with normal regional wall motion. Left ventricular ejection fraction is calculated to be 67%. CONCLUSIONS: 1. No evidence of any significant myocardial ischemia or infarction on this study. 2. Normal regional wall motion. 3. Normal global left ventricular systolic function with a calculated ejection fraction of 67%. Job ID: [id number] DocumentID: [id number] Dictated Date: 04/16/2023 09:08:27 Audit Intern Date: 04/16/2023 12:24:00 Dictated By: SORAYA VALDES MD; ROSEANNE; FACP; FACC;
== END ==
LOC: CARD 08:35
PROVIDERS: ATTEND Internal Medicine Cardiovascular Disease
DX: R07.89 Other chest pain (principal)
CPT/HCPCS: 78452; 93017